=== PATIENT | female | born 1960 | race African-American/Black ===

== ENCOUNTER 2016-10-29 08:59 | Observation (INO) | payer MEDICARE, MEDICAID ==
--- NOTE | 2016-10-29 09:53 | ED ---
Lower Extremity - HPI Summary HPI Summary: Pt here w/ Rt LE pain since falling this morning - knee and ankle. Was walking to bathroom when she accidentally tripped and fell. Denies LOC, hitting head, change in vision, neck pain, dizziness, chest pain, back pain. 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 Has a baseline of slow cognition as a result of CVA. Denies anti-coagulation therapy currently but does take plaquenil for her SLE. She was unable to bear weight after injury lives in [place] and called "rescue unit" - BIB. Denies numbness, tingling , weakness, change in bowel/bladder habits. - History of Current Complaint Chief Complaint: EDExtremityLower Stated Complaint: RT KNEE PAIN Time Seen by Provider: 10/29/16 09:21 Hx Obtained From: Patient, Family/Road Roller Operator - mother - Allergies/Home Medications Allergies/Adverse Reactions: Allergies Allergy/AdvReac Type Severity Reaction Status Date / Time Fentanyl Allergy Unknown Verified 10/29/16 09:06 Reaction Details Sulfa Antibiotics Allergy Facial Verified 10/29/16 09:06 Redness/Flushing Home Medications: Home Medications Aspirin TAB* 325 mg PO DAILY 10/29/16 [History Confirmed 10/29/16] Calcium Carbonate-Vitamin D [Calcium 600 + D 600-400 mg-Unit] 1 tab PO BID 10/29 [History Confirmed 10/29/16] Famotidine TAB* [Pepcid TAB*] 20 mg PO 2100 10/29/16 [History Confirmed 10/29/16 ] Gabapentin TAB(NF) [Neurontin 600 mg TAB(NF)] 600 mg PO BID 10/29/16 [History Confirmed 10/29/16] Naproxen TAB* [Naprosyn TAB*] 500 mg PO BID 10/29/16 [History Confirmed 10/29/16 ] Nebivolol TAB (NF) [Bystolic TAB (NF)] 5 mg PO DAILY 10/29/16 [History Confirmed 10/29/16] Sennosides [Senna-Lax] 17.2 mg PO BEDTIME 10/29/16 [History Confirmed 10/29/16] amLODIPine TAB* [Norvasc TAB*] 5 mg PO DAILY 10/29/16 [History Confirmed ] PMH/Surg Hx/FS Hx/Imm Hx Endocrine/Hematology History: Reports: Hx Systemic Lupus Erythematosus - tx'd w / plaquenil, Hx Thyroid Disease - RIGHT LOBE THYROID IS ENLARGED, Denies: Hx Anticoagulant Therapy, Hx Bone Marrow Disease, Hx Diabetes, Hx Sickle Cell Disease, Hx Anemia Cardiovascular History: Reports: Hx Hypertension Denies: Hx Congestive Heart Failure, Hx Pacemaker/ICD, Other Cardiovascular Problems/Disorders Respiratory History: Denies: Hx Asthma, Hx Pulmonary Embolism, Hx Sleep Apnea, Other Respiratory Problems/Disorders GI History: Denies: Hx Jaundice History: Reports: Hx Kidney Infection, Other Problems/Disorders - UTI, vag abscess. SEES DR. GRAF ABOUT KIDNEYS Denies: Hx Renal Disease Musculoskeletal History: Reports: Hx Arthritis - SHOULDERS, Hx Back Problems - pain, Other Musculoskeletal History - bilateral hip Denies: Hx Tendonitis Sensory History: Reports: Hx Contacts or Glasses, Hx Deafness - [place] in right ear , Hx Hearing Problem - right hear clogged Denies: Hx Cataracts, Hx Glaucoma, Hx Hearing Aid Opthamlomology History: Reports: Hx Contacts or Glasses Denies: Hx Cataracts, Hx Glaucoma Neurological History: Reports: Hx Migraine - ~1 MONTH AGO, HAPPENS OCCASIONALLY , Hx Seizures, Other Neuro Impairments/Disorders - cva lupus migranes; 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 Denies: Hx Nerve Disease Comment Only: Hx Spinal Cord Injury - "Many years ago" Psychiatric History: Denies: Hx Anxiety, Hx Depression, Hx Panic Disorder - Cancer History Hx Chemotherapy: No Hx Radiation Therapy: No - Surgical History Surgery Procedure, Year, and Place: BILATERAL hip replacement, hysterectomy, one ovary removed; VAGINAL ABSCESS I&D Hx Anesthesia Reactions: No - Immunization History Date of Tetanus Vaccine: unk Date of Influenza Vaccine: unk Infectious Disease History: Yes Infectious Disease History: Reports: Hx of Known/Suspected MRSA, Hx Shingles Denies: Hx Hepatitis, Traveled Outside the [place] in Last 30 Days - Family History Known Family History: Positive: Cardiac Disease, Hypertension, Diabetes - Social History Occupation: Disabled Lives: Alone - [place] Alcohol Use: None Hx Substance Use: No Substance Use Type: Reports: None Hx Tobacco Use: No Smoking Status (MU): Never Smoked Tobacco Have You Smoked in the Last Year: No Review of Systems Negative: Fatigue Eyes: Negative Negative: Epistaxis Negative: Chest Pain Negative: Shortness Of Breath Negative: Abdominal Pain, Vomiting, Diarrhea, Nausea Positive: no symptoms reported Musculoskeletal: Other - see HPI Negative: Bruising Neurological: Negative Psychological: Normal All Other Systems Reviewed And Are Negative: Yes Physical Exam Triage Information Reviewed: Yes Vital Signs On Initial Exam: Initial Vitals Temp Pulse Resp BP Pulse Ox 98.3 F 77 16 150/94 100 10/29/16 09:04 10/29/16 09:04 10/29/16 09:04 10/29/16 09:04 10/29/16 09:04 Vital Signs Reviewed: Yes Appearance: Positive: Well-Appearing, Well-Nourished, Pain Distress Skin: Positive: Warm, Dry - no erytema, no ecchymosis, no signs of abrasion/ laceration over affected areas Head/Face: Positive: Normal Head/Face Inspection Eyes: Positive: Normal, EOMI, ANDREI, Conjunctiva Clear ENT: Positive: Hearing grossly normal, Pharynx normal - muocsa moist Neck: Positive: Supple, Nontender Respiratory/Lung Sounds: Positive: Breath Sounds Present. Negative: Subcutaneous Emphysema, Tracheal Deviation Cardiovascular: Positive: Normal, RRR, Pulses are Symmetrical in both Upper and Lower Extremities Abdomen Description: Positive: Nontender, Soft Bowel Sounds: Positive: Present Musculoskeletal: Positive: Pain @ - Rt knee, tibia and malleoli are TTP - pt has limited ROM of RLE d/t pain and weakness (latter is baseline), Other - lumbar spine, paraspinal mm, SI joints and hip NTTP Neurological: Positive: Other - slowed cognition (pt and mom state this is baseline); Rt sided weakness, UE and LE (again, baseline); sensation intact and equal B/L in LE's Psychiatric: Positive: Anxious Diagnostics - Vital Signs Vital Signs Temp Pulse Resp BP Pulse Ox 10/29/16 09:09 77 100 10/29/16 09:04 98.3 F 77 16 150/94 100 - Laboratory Result Diagrams: 10/29/16 13:13 10/30/16 08:30 Lab Statement: Any lab studies that have been ordered have been reviewed, and results considered in the medical decision making process. Re-Evaluation - Re-Evaluation First Eval Change: Unchanged - no relief w/ acetaminophen 975mg Second Eval Change: Unchanged - no change with oxycodone 5mg PO Lower Extremity Course/Dx - Course Course Of Treatment: Pt's pain is poorly controlled w/ 2 meds here in ED - she is also unable to bear weight. Social work consult was placed to discuss pt's ability to return home given her lack of Rt LE weight bearing s/p injury - she also has a Rt sided hemiplegia, impeding use of her Rt arm so she cannot use cructhes or a walker to assist in ambulation at home. Upon further discussion, it is identified that pt was recently d/c'd from [facility]. Social work advises obs/admit for pain control w/ plan to return home or back into residential care if unable to live independently after pain is controlled. - Diagnoses Provider Diagnoses: Fall, Lower extremity pain - Physician Notifications Discussed Care of Patient With: Dr. Lynn. Dr. Santillan. Cost Estimating Clerk Discharge - Discharge Plan Condition: Stable Disposition: ADMITTED TO [facility]
[2016-10-29] MEDS ORDERED: Acetaminophen TAB* 325 MG PO ONE (09:57)
--- NOTE | 2016-10-29 10:41 | RAD ---
Indication: RIGHT knee pain post fall. Comparison: February 13, 2006 Technique: AP, tunnel, and crosstable lateral views RIGHT knee. Report: Normal alignment. Negative for joint effusion. Mild subchondral sclerosis at the lateral femoral condyle grossly unchanged from the prior exam. Preserved joint spaces. Unremarkable soft tissue contours accounting for body habitus. Skeletal muscle atrophy. IMPRESSION: No traumatic injury evident. Subchondral sclerosis at the lateral femoral condyle without gross change compared with the 2006 exam may reflect sequela of previous avascular necrosis.
[2016-10-29] MEDS ORDERED: oxyCODONE TAB* 5 MG TAB PO ONE (10:42)
--- NOTE | 2016-10-29 10:47 | RAD ---
INDICATION: Right ankle injury. TECHNIQUE: 3 views of the right ankle were obtained. FINDINGS: There is mild soft diffuse soft tissue swelling. The bones are in normal alignment. No fracture is seen. IMPRESSION: NO EVIDENCE FOR FRACTURE.
[2016-10-29] MEDS ORDERED: Ondansetron INJ* 2 MG/ML VIAL IV ONE (12:31)
[2016-10-29] MEDS ORDERED: Morphine INJ* 4 MG/ML 1 ML CARPUJECT IV ONE (12:31)
[2016-10-29 13:32] LABS: Hematocrit 33 % (35-47); Hemoglobin 10.4 g/dl (12.0-16.0); Mean Corpuscular HGB Conc 32 g/dl (31-36); Mean Corpuscular Hemoglobin 27 pg (27-31); Mean Corpuscular Volume 85 fL (80-97); Mean Platelet Volume 8 um3 (7.4-10.4); Red Blood Count 3.81 10^6/ul (4.0-5.4); Red Cell Distribution Width 14 % (10.5-15); White Blood Count 4.8 10^3/ul (3.5-10.8)
[2016-10-29 13:42] LABS: Albumin 3.8 g/dL (3.2-5.2); BUN/Creatinine Ratio 8.7 (8-20); Calcium 9.1 mg/dL (8.6-10.3); EGFR African American 56.5 (>60); EGFR Non-African American 43.9 (>60); Globulin 3.7 g/dL (2-4); Potassium 3.3 mmol/L (3.5-5.0); Total Bilirubin 0.3 mg/dL (0.2-1.0); Total Protein 7.5 g/dL (6.4-8.9)
[2016-10-29] MEDS ORDERED: Baclofen TAB* 20 MG PO PRN (14:42)
[2016-10-29] MEDS ORDERED: Morphine INJ* 2 MG/ML 1 ML CARPUJECT IV PRN (14:45)
[2016-10-29] MEDS ORDERED: Potassium Chlor TAB* 20 MEQ TAB.ER PO ONE (15:11)
[2016-10-29 15:31] LABS: Magnesium 1.8 mg/dL (1.9-2.7)
[2016-10-29 15:39] LABS: Urine Bacteria Absent (Absent); Urine Bilirubin Negative (Negative); Urine Glucose Negative (Negative); Urine Nitrite Negative (Negative)
[2016-10-29] MEDS ORDERED: Magnesium Sulfate 2 GM IV* 2 GM/50 ML BAG IVPB ONE (16:18)
[2016-10-29] MEDS ORDERED: Baclofen TAB* 10 MG PO PRN (16:49)
[2016-10-29] MEDS: oxyCODONE/Acetamin 5/325 MG* TAB PO PRN (19:40)
[2016-10-29] MEDS ORDERED: Ranitidine TAB (NF) 150 MG TAB PO SCH (21:00)
[2016-10-29] MEDS ORDERED: Senna TAB PO SCH (21:00)
[2016-10-29] MEDS ORDERED: Famotidine TAB* 20 MG PO SCH (21:00)
[2016-10-29] MEDS: Naproxen TAB* 250 MG PO SCH (21:36)
[2016-10-29] MEDS: Hydroxychloroquine TAB* 200 MG PO SCH (21:36)
[2016-10-29] MEDS: PHENobarbital TAB(*) 30 MG PO SCH (21:36)
[2016-10-29] MEDS: Gabapentin CAP(*) 300 MG PO SCH (21:37)
--- NOTE | 2016-10-29 22:26 | HP ---
HISTORY AND PHYSICAL: DATE OF ADMISSION: 10/29/16 PRIMARY CARE PROVIDER: Nabila Barrera MD ATTENDING PHYSICIAN: Dru Burton MD *(report dictated by Jessica Lopez NP) CHIEF COMPLAINT: Fall with right lower extremity pain. HISTORY OF PRESENT ILLNESS: Ms. Rao is a 56-year-old female with past medical history significant for lupus, CVA at age 27, arthritis and avascular necrosis who presents to the emergency room after tripping and falling while walking to the bathroom at home. The patient denies any loss of consciousness, head trauma, visual changes, lightheadedness or dizziness. When the patient fell, she was unable to get up and called for help and was brought to the emergency room. While in the emergency room, the patient had a right knee x-ray showing no traumatic injury and a right ankle x-ray showing no fracture. The patient had labs that were significant for a slightly low potassium of 3.3, an elevated creatinine at 1.26, which appears to be consistent with the patient's baseline. The patient was noted to be anemic with hemoglobin of 10.4 and hematocrit of 33. This is also consistent with the patient's previous labs from an admission in September 2016. The patient denied any fever, chills, chest pain, shortness of breath, weakness that was above her baseline. It is to note that the patient has baseline right sided weakness after having a CVA at age 27 during childbirth. While in the emergency room, the patient received acetaminophen and oxycodone with no relief in her pain. The patient attempted to ambulate and was unable to bear weight on her right lower extremity and she is unable to use crutches due to her right upper extremity weakness. The patient received IV morphine that helped bring her pain to a more manageable level. The hospitalist were asked to evaluate the patient for admission. PAST MEDICAL HISTORY: 1. Systemic lupus erythematosus. 2. Cerebrovascular accident at age 27. 3. Arthritis. 4. Migraine. 5. Avascular necrosis. PAST SURGICAL HISTORY: 1. Status post vaginal abscess incision and drainage. 2. Status post bilateral hip replacements. 3. Status post hysterectomy. 4. Status post oophorectomy. HOME MEDICATIONS: Include: 1. Bystolic 5 mg oral daily. 2. Naproxen 500 mg oral twice daily. 3. Ranitidine 150 mg oral twice daily. 4. Gabapentin 600 mg oral twice daily. 5. Amlodipine 5 mg oral daily. 6. Phenobarbital 64.8 mg oral twice daily. 7. Plaquenil 200 mg oral twice daily. 8. Senna Lax 17.2 mg oral at bedtime daily. 9. Baclofen 20 mg oral twice daily as needed for muscle spasms. 10. Aspirin 325 mg oral daily. 11. Famotidine 20 mg oral daily at bedtime. 12. Calcium carbonate-vitamin D 1 tablet oral twice daily. ALLERGIES: FENTANYL, SULFA. FAMILY HISTORY: Reviewed and noncontributory. SOCIAL HISTORY: The patient denies tobacco, alcohol, recreational drug use. The patient lives alone at [facility]. The patient's son, Yayo Rao and her mother, Karen Okeefe will be her surrogate decision makers in the event she is unable to make decisions for herself. REVIEW OF SYSTEMS: I performed a 14-point review of systems. All the pertinent positives and negatives are mentioned in the history of present illness. The remaining review of systems is negative. PHYSICAL EXAMINATION GENERAL APPEARANCE: The patient is alert, pleasant, appears to be in no acute distress. VITAL SIGNS: Temperature 98.3, heart rate 77, respiratory rate 16, O2 sat 100% on room air, blood pressure 150/94. HEENT: Normocephalic, atraumatic. Pupils are equal and reactive to light. Extraocular movements are intact. NECK: Supple. There is no lymphadenopathy noted. RESPIRATORY: There is no accessory muscle use and the lungs are clear to auscultation bilateral. CARDIOVASCULAR: Regular rate and rhythm. S1 and S2 are present. ABDOMEN: Soft, nontender, nondistended. Bowel sounds present x4. EXTREMITIES: There is no lower extremity edema. DP and PT pulses are 2+ and symmetric. MUSCULOSKELETAL: There is no clubbing or cyanosis noted. The patient has pain in her right knee and there is tenderness to palpation at the knee. The patient has limited range of motion due to pain and baseline weakness. The patient also has pain to palpation at the right ankle and has limited mobility range of motion due to pain. The patient at baseline has right upper extremity contracture and weakness. NEUROLOGICAL: Slowed cognition, per the patient and her mother this is her baseline. The patient has baseline right-sided weakness. PSYCHOLOGICAL: The patient is calm and cooperative. SKIN: There are no rashes or abnormalities seen. DIAGNOSTIC STUDIES/LABORATORY DATA: Sodium 137, potassium 3.3, chloride 104, CO2 of 28, BUN 11, creatinine 1.26, glucose 74. White blood cell count 4.8, hemoglobin 10.4, hematocrit 33, and platelet count 215. Right ankle x-ray from today, radiologist's impression: No evidence for fracture. Right knee x-ray from today, radiologist's impression: No traumatic injury evident. Subchondral sclerosis at the lateral femoral condyle without gross change compared with 2006 exam may reflect sequelae of previous avascular necrosis. IMPRESSION: Ms. Rao is a 56-year-old female with past medical history significant for lupus, cerebrovascular accident, arthritis, and migraine who presents to the emergency room after tripping and falling at home. She will be admitted as an inpatient for intractable pain. ASSESSMENT: 1. Intractable pain. The patient is unable to bear weight due to pain in her right ankle and knee. The patient is also unable to use crutches due to her baseline right upper extremity weakness from her history of cerebrovascular accident. The patient will have a PT and OT evaluation. She will receive pain medication. I suspect the patient may need temporary subacute rehab placement if she is unable to bear weight and ambulate independently. 2. Hypokalemia. The patient will receive potassium replacement today. We will recheck the patient's potassium in the morning. We will also check a magnesium level today. If the patient does in fact have hypomagnesium, we will also give the patient magnesium replacement. 3. History of seizures. The patient will be continued on her home phenobarbital. She will be on seizure precautions. 4. Lupus. The patient will be continued on her Plaquenil. 5. Chronic pain. The patient will be continued on her home naproxen, Neurontin and baclofen. 6. Fluids, electrolytes, and nutrition. The patient will be on regular diet. 7. Code status, full code. 8. DVT prophylaxis. The patient is a moderate risk and will have SCDs. 9. Disposition. Inpatient. TIME SPENT: Time for this admission was 60 minutes, 35 minutes was spent with the patient and mother discussing medications, past medical history, and events leading up to her arrival today and performing a physical examination. The case has been reviewed with the attending, Dr. Burton, who agrees with the plan of care. Reviewed by RADHA MANZANO-Bernabe 10/30/16 0728 CC: Nabila Barrera MD* [id number]/[facility] #: [id number] [facility]HT[facility]
[2016-10-30] MEDS: oxyCODONE/Acetamin 5/325 MG* TAB PO PRN ×2 (07:06→12:28)
[2016-10-30 07:19] VITALS: BP 118/76
[2016-10-30] MEDS ORDERED: CMCS Nebivolol TAB (NF) 2.5 MG TAB PO SCH (09:00)
[2016-10-30] MEDS ORDERED: Aspirin TAB* 325 MG PO SCH (09:00)
[2016-10-30] MEDS ORDERED: amLODIPine TAB* 5 MG PO SCH (09:00)
[2016-10-30 09:05] LABS: Calcium 8.5 mg/dL (8.6-10.3); EGFR African American 52.6 (>60); EGFR Non-African American 40.9 (>60); Magnesium 2.3 mg/dL (1.9-2.7); Potassium 4.4 mmol/L (3.5-5.0)
[2016-10-30] MEDS: Hydroxychloroquine TAB* 200 MG PO SCH (09:32)
[2016-10-30] MEDS: Gabapentin CAP(*) 300 MG PO SCH (09:32)
[2016-10-30] MEDS: Naproxen TAB* 250 MG PO SCH (09:32)
[2016-10-30] MEDS: PHENobarbital TAB(*) 30 MG PO SCH (09:33)
--- NOTE | 2016-10-30 09:59 | PN ---
Subjective Date of Service: 10/30/16 Interval History: Patient seen and examined at bedside. Pt states that her right LE pain has improved today. She continues to have decreased ROM, but is able to move both her knee and ankle more today. Denies fever, chills, shortness of breath, chest discomfort, N/V/D. Family History: Unchanged from Admission Social History: Unchanged from Admission Past Medical History: Unchanged from Admission Objective Active Medications: Amlodipine Besylate (Norvasc Tab*) 5 mg PO DAILY [facility] Aspirin (Aspirin Tab*) 325 mg PO DAILY [facility] Baclofen (Lioresal Tab*) 20 mg PO BID PRN Reason: SPASMS - MUSCLE Famotidine (Pepcid Tab*) 20 mg PO 2100 [facility] Gabapentin (Neurontin Cap(*)) 600 mg PO BID [facility] Hydroxychloroquine Sulfate (Plaquenil Tab*) 200 mg PO BID [facility] Morphine Sulfate (Morphine Inj (Syringe)*) 2 mg IV Q4H PRN Reason: PAIN - MILD TO MODERATE Naproxen (Naprosyn Tab*) 500 mg PO BID [facility] Nebivolol (Bystolic Tab (Nf)) 5 mg PO DAILY [facility] Oxycodone/Acetaminophen (Percocet 5/325 Tab*) 1 tab PO Q4H PRN Reason: PAIN Phenobarbital (Phenobarbital Tab(*)) 60 mg PO BID [facility] Senna (Senokot Tab*) 2 tab PO BEDTIME [facility] Vital Signs 10/29/16 10/29/16 10/29/16 16:33 17:24 17:32 Temperature 98 F 99.1 F 99.1 F Pulse Rate 64 71 71 Respiratory 16 16 16 Rate Blood Pressure 118/77 127/73 127/73 (mmHg) O2 Sat by Pulse 98 100 100 Oximetry 10/29/16 10/29/16 10/29/16 19:40 20:00 21:36 Temperature 98.2 F Pulse Rate 86 Respiratory 18 16 16 Rate Blood Pressure 127/77 (mmHg) O2 Sat by Pulse 100 Oximetry 10/29/16 10/29/16 10/30/16 23:37 23:38 01:14 Temperature 98.0 F Pulse Rate 83 Respiratory 18 16 20 Rate Blood Pressure 116/70 (mmHg) O2 Sat by Pulse 97 Oximetry 10/30/16 10/30/16 10/30/16 02:14 03:25 06:53 Temperature 97.9 F Pulse Rate 78 73 Respiratory 16 Rate Blood Pressure 117/70 118/76 (mmHg) O2 Sat by Pulse 100 100 Oximetry Oxygen Devices in Use Now: None Appearance: NAD, laying in bed. Eyes: No Scleral Icterus, PERRLA Ears/Nose/Mouth/Throat: NL Teeth, Lips, Gums, Mucous Membranes Moist Neck: NL Appearance and Movements; NL JVP, Trachea Midline Respiratory: Symmetrical Chest Expansion and Respiratory Effort, Clear to Auscultation Cardiovascular: NL Sounds; No Murmurs; No JVD, RRR Abdominal: NL Sounds; No Tenderness; No Distention - Bowel sounds present. Extremities: No Edema, - - Limited ROM to right LE Skin: No Rash or Ulcers Neurological: Alert and Oriented x 3, - - Baseline Right sided weakness Lines/Tubes/Other Access: Clean, Dry and Intact Peripheral IV - site benign. Nutrition: Taking PO's Result Diagrams: 10/29/16 13:13 10/30/16 08:30 Assess/Plan/Problems-Billing Assessment: Ms. Rao is a 56 yo female with PMH significant for lupus, hx CVA, and arthritis who presented to the emergency room after tripping and falling at home. She was admitted for intractable pain. - Patient Problems (1) Intractable pain Code(s): R52 - PAIN, UNSPECIFIED SNOMED Code(s): 51249456 Comment: Improved pain control and slowly improving mobility. No acute fractures seen on xray. Pt received 1 dose of IV morphine overnight and using Percocet for pain. PT/OT eval pending. (2) Hypokalemia Code(s): E87.6 - HYPOKALEMIA SNOMED Code(s): 34560600 Comment: Resolved. (3) Elevated serum creatinine Code(s): R79.89 - OTHER SPECIFIED ABNORMAL FINDINGS OF BLOOD CHEMISTRY SNOMED Code(s): 680573408 Comment: Creatinine is slightly more elevated today. Creatinine is still near baseline. Will continue to limit nephrotoxic medications and make sure her routine medications are renally dosed. (4) Chronic pain Code(s): G89.29 - OTHER CHRONIC PAIN SNOMED Code(s): 20767387 Comment: Will try to keep on her home analgesic meds if possible. (5) History of CVA with residual deficit Code(s): I69.30 - UNSPECIFIED SEQUELAE OF CEREBRAL INFARCTION SNOMED Code(s): 919959583 Comment: with right-sided numbness and weakness at baseline (6) Lupus Code(s): M32.9 - SYSTEMIC LUPUS ERYTHEMATOSUS, UNSPECIFIED SNOMED Code(s): 96243663 Comment: Continue Plaquenil. (7) Seizure Code(s): R56.9 - UNSPECIFIED CONVULSIONS SNOMED Code(s): 93221431 Comment: No seizure activity. Continue phenobarbital. Seizure precautions. (8) DVT prophylaxis Code(s): NCA9121 - SNOMED Code(s): 882116782 Comment: SCDs (9) Full code status Code(s): Z78.9 - OTHER SPECIFIED HEALTH STATUS SNOMED Code(s): 792587955 Status and Disposition: Inpatient to [facility]. Stable for discharge to home vs NHP. Plan for possible discharge later today after PT/OT consults.
--- NOTE | 2016-10-30 12:27 | DS ---
DATE OF ADMISSION: 10/29/2016. DATE OF DISCHARGE: 10/30/2016. AGE: 56. ATTENDING PHYSICIAN: Dr. Dru Burton* (dictated by Jessica Lopez NP). PRIMARY DIAGNOSES: 1. Status post fall at home. 2. Intractable right lower extremity pain. SECONDARY DIAGNOSES: 1. Systemic Lupus erythematous. 2. History of cerebrovascular accident at age 27. 3. Arthritis. 4. History of avascular necrosis. STUDIES WHILE IN THE HOSPITAL: 1. Right ankle x-ray, 10/29/2016: Radiologist's impression: No evidence for fracture. 2. Right knee x-ray, 10/29/2016: Radiologist's impression: No traumatic injury evident. Subchondral sclerosis at the lateral femoral condyle without gross change compared with 2006 exam, may reflect sequela of previous avascular necrosis. DISCHARGE MEDICATIONS: New home medications: 1. Percocet one tablet oral every 4 hours as needed for pain. Continued home medications: 1. Phenobarbital 64.8 mg oral twice daily. 2. Plaquenil 200 mg oral twice daily. 3. Ranitidine 150 mg oral twice daily. 4. Baclofen 20 mg oral twice daily as needed for muscle spasms. 5. Naproxen 500 mg oral twice daily. 6. Gabapentin 600 mg oral twice daily. 7. Amlodipine 5 mg oral daily. 8. Senna-Lax 17.2 mg oral daily at bedtime. 9. Aspirin 325 mg oral daily. 10. Famotidine 20 mg oral daily at bedtime. 11. Calcium carbonate - vitamin D one tablet oral twice daily. 12. Bystolic 5 mg oral daily. HISTORY OF PRESENT ILLNESS/HOSPITAL COURSE: Ms. Rao is a 56-year-old female with a past medical history significant for Lupus, cerebrovascular accident at age 27, arthritis and avascular necrosis who presented to the emergency room after tripping and falling at home while ambulating without an assistive device. The patient denied hitting her head, loss of consciousness, visual changes, lightheadedness, or dizziness. When the patient fell, she was having right lower extremity pain and was unable to get up. She called for help and was brought to the emergency room for further evaluation. While in the emergency room, the patient had a right knee x-ray showing no traumatic injury and a right ankle x-ray showing no fracture. The patient had labs that were significant for hypokalemia with a potassium of 3.3, elevated creatinine of 1.26 which appears to be consistent with the patient's baseline. The patient was also noted to be anemic with a hemoglobin of 10.4 and a hematocrit of 33. These are consistent with previous labs from September 2016. It appeared to be at the patient's baseline. It is to note that the patient at baseline has right sided weakness after having a CVA at age 27 during childbirth. While in the emergency room, the patient received acetaminophen and Oxycodone with no relief in her pain. The patient attempted to ambulate and was unable to bear weight on her right lower extremity and she is unable to use crutches due to right upper extremity baseline weakness. The patient received IV Morphine with some improvement in her pain. The Hospitalists were asked to evaluate the patient for admission. While in the hospital, the patient's pain improved. She only required one dose of IV Morphine and her pain has been controlled with Percocet. The patient was seen by Occupational Therapy and Physical Therapy who felt that the patient had continued therapy needs and would benefit [facility]. The patient has been offered a bed at [facility] today. Ms. Rao is stable for discharge to [facility] today. Vital signs are as follows: Temperature 97.9, heart rate 73, respiratory rate 16, O2 sat 100 percent on room air, blood pressure 118/76. DISCHARGE PLAN: Ms. Rao will be discharged to [facility]. Activity is as tolerated. She should be on a regular diet. Ms. Rao should continue to use an assistive device to ambulate. As far as the right lower extremity pain, this is felt to be related to a contusion and possible muscle sprain. The patient can take Tylenol as needed in addition to Percocet as needed for her pain. The patient has also been encouraged to rest the lower extremity and use ice. As far as the patient's chronic medical condition, she should be continued on her Plaquenil for her Lupus. The patient should be continued on Phenobarbital for her history of seizures. The patient should be continued on aspirin for her history of cerebrovascular accident. As far as the patient's chronic kidney disease, cautious use should be used with her Naproxen and Gabapentin. I recommend monitoring the patient's creatinine. If her creatinine continues to elevate, I recommend decreasing or discontinuing her Naproxen as well as her Gabapentin. The patient should continue to be evaluated and followed with Physical Therapy and Occupational Therapy. The patient should see her primary care doctor, Dr. Nabila Barrera or the [facility] provider per protocol. The patient should return to the emergency room for chest pain or shortness of breath. This is a summarized report of a complex medical history and hospital stay. For further details, please see the entire medical record. Time for this discharge was 50 minutes, 25 minutes were spent [id number] with the patient discussing discharge plans and instructions. CONDITION ON DISCHARGE: Stable. Reviewed by ZULMA MANZANO 11/08/16 0804 CC: Dr. Nabila Barrera* [id number]/[facility] #: [id number]
== END 2016-10-30 14:45 ==
LOC: ED 08:59 → MED 14:14 → INTOOBSV 14:14
PROVIDERS: ADMIT Internal Medicine; ATTEND Internal Medicine
DX: M79.604 Pain in right leg (principal); W01.0XXA Fall on same level from slipping, tripping and stumbling without subsequent striking against object, initial encounter; Y92.009 Unspecified place in unspecified non-institutional (private) residence as the place of occurrence of the external cause; E87.6 Hypokalemia; M32.9 Systemic lupus erythematosus, unspecified; M87.9 Osteonecrosis, unspecified; R79.89 Other specified abnormal findings of blood chemistry; M19.90 Unspecified osteoarthritis, unspecified site; G89.29 Other chronic pain; Z86.73 Personal history of transient ischemic attack (TIA), and cerebral infarction without residual deficits; Z79.899 Other long term (current) drug therapy; Z79.82 Long term (current) use of aspirin; Z88.5 Allergy status to narcotic agent; Z88.2 Allergy status to sulfonamides
CPT/HCPCS: 36415; 80048; 80053; 81003; 81015; 83735; 85025; 87077; 87086; 96374; 96375; 96376; 99284; A9270-GY; G0378; J2270; J2405; J3475

== ENCOUNTER 2016-12-03 23:03 | Emergency (ER) | payer MEDICARE, MEDICAID ==
[2016-12-04] MEDS ORDERED: Ondansetron INJ* 2 MG/ML VIAL IV ONE (00:51)
[2016-12-04] MEDS ORDERED: Morphine INJ* 4 MG/ML 1 ML CARPUJECT IV ONE (00:51)
[2016-12-04] MEDS ORDERED: NS 0.9% 1000 ML* 1,000 ML IV ONE (00:51)
[2016-12-04 03:10] LABS: Hematocrit 29 % (35-47); Hemoglobin 9.3 g/dl (12.0-16.0); Mean Corpuscular HGB Conc 33 g/dl (31-36); Mean Corpuscular Hemoglobin 28 pg (27-31); Mean Corpuscular Volume 85 fL (80-97); Mean Platelet Volume 8 um3 (7.4-10.4); Red Blood Count 3.37 10^6/ul (4.0-5.4); Red Cell Distribution Width 14 % (10.5-15); White Blood Count 3.8 10^3/ul (3.5-10.8)
[2016-12-04 03:49] LABS: Albumin 3.5 g/dL (3.2-5.2); BUN/Creatinine Ratio 13.4 (8-20); C Reactive Protein 6.74 mg/L (< 5.00); Calcium 8.7 mg/dL (8.6-10.3); EGFR African American 52.6 (>60); EGFR Non-African American 40.9 (>60); Globulin 3.6 g/dL (2-4); Potassium 3.9 mmol/L (3.5-5.0); Total Bilirubin 0.2 mg/dL (0.2-1.0); Total Protein 7.1 g/dL (6.4-8.9)
--- NOTE | 2016-12-04 04:37 | ED ---
Juan Antonio Emerson Adam, scribed for Scott Toscano MD on 12/04/16 at 0028 . Complex/Multi-Sys Presentation - HPI Summary HPI Summary: Pt is a 56 year old female presenting with dizziness, DREW, and pain in the right side of her body. She became dizzy at 20:00 and after going upstairs she felt as if she was going to lose consciousness. Soon she developed a DREW in her forehead and pain throughout the right side of her body. She has PMHx of CVA at age 27 with residual right-sided weakness and facial droop. She takes oxycodone for chronic pain but she states that the pain tonight was worse than usual and the oxycodone did not alleviate it. She denies any abdominal pain or urinary sx. - History Of Current Complaint Chief Complaint: EDGeneral Time Seen by Provider: 12/04/16 00:15 Hx Obtained From: Patient Onset/Duration: Sudden Onset, Lasting Hours, Still Present Timing: Constant Severity Currently: Moderate Severity Initially: Moderate Location: Pain At: - Right side of body Aggravating Factor(s): Nothing Alleviating Factor(s): Nothing Associated Signs And Symptoms: Positive: Dizziness, Headache, Other - Pre- syncope - Allergies/Home Medications Allergies/Adverse Reactions: Allergies Allergy/AdvReac Type Severity Reaction Status Date / Time Fentanyl Allergy Unknown Verified 12/03/16 23:20 Reaction Details Sulfa Antibiotics Allergy Facial Verified 12/03/16 23:20 Redness/Flushing PMH/Surg Hx/FS Hx/Imm Hx Endocrine/Hematology History: Reports: Hx Systemic Lupus Erythematosus - tx'd w / plaquenil, Hx Thyroid Disease - RIGHT LOBE THYROID IS ENLARGED, Denies: Hx Anticoagulant Therapy, Hx Bone Marrow Disease, Hx Diabetes, Hx Sickle Cell Disease, Hx Anemia Cardiovascular History: Reports: Hx Hypertension Denies: Hx Congestive Heart Failure, Hx Pacemaker/ICD, Other Cardiovascular Problems/Disorders Respiratory History: Denies: Hx Asthma, Hx Pulmonary Embolism, Hx Sleep Apnea, Other Respiratory Problems/Disorders GI History: Denies: Hx Jaundice History: Reports: Hx Kidney Infection, Other Problems/Disorders - UTI, vag abscess. SEES DR. GRAF ABOUT KIDNEYS Denies: Hx Renal Disease Musculoskeletal History: Reports: Hx Arthritis - SHOULDERS, Hx Back Problems - pain, Other Musculoskeletal History - bilateral hip Denies: Hx Tendonitis Sensory History: Reports: Hx Contacts or Glasses, Hx Deafness - [place] in right ear , Hx Hearing Problem - right hear clogged Denies: Hx Cataracts, Hx Glaucoma, Hx Hearing Aid Opthamlomology History: Reports: Hx Contacts or Glasses Denies: Hx Cataracts, Hx Glaucoma Neurological History: Reports: Hx Migraine - ~1 MONTH AGO, HAPPENS OCCASIONALLY , Hx Seizures, Other Neuro Impairments/Disorders - cva lupus migranes; 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 Denies: Hx Nerve Disease Comment Only: Hx Spinal Cord Injury - "Many years ago" Psychiatric History: Denies: Hx Anxiety, Hx Depression, Hx Panic Disorder - Cancer History Hx Chemotherapy: No Hx Radiation Therapy: No - Surgical History Surgery Procedure, Year, and Place: BILATERAL hip replacement, hysterectomy, one ovary removed; VAGINAL ABSCESS I&D Hx Anesthesia Reactions: No - Immunization History Date of Tetanus Vaccine: unk Date of Influenza Vaccine: unk Infectious Disease History: Yes Infectious Disease History: Reports: Hx of Known/Suspected MRSA, Hx Shingles Denies: Hx Hepatitis, Traveled Outside the [place] in Last 30 Days - Family History Known Family History: Positive: Cardiac Disease, Hypertension, Diabetes - Social History Occupation: Disabled Lives: With Family - Mother Alcohol Use: None Hx Substance Use: No Substance Use Type: Reports: None Hx Tobacco Use: No Smoking Status (MU): Never Smoked Tobacco Have You Smoked in the Last Year: No Review of Systems Negative: Abdominal Pain Genitourinary: Negative Positive: Myalgia - Right side of body Neurological: Other - Dizziness, right side facial droop (chronic) Positive: Headache, Weakness - Right side (chronic), Syncope - Pre-syncope (no LOC) All Other Systems Reviewed And Are Negative: Yes Physical Exam Triage Information Reviewed: Yes Vital Signs On Initial Exam: Initial Vitals Temp Pulse Resp BP Pulse Ox 98.6 F 84 16 137/92 100 12/03/16 23:05 12/03/16 23:05 12/03/16 23:05 12/03/16 23:05 12/03/16 23:05 Vital Signs Reviewed: Yes Appearance: Positive: Well-Appearing, Pain Distress - Mild to moderate Skin: Positive: Warm, Skin Color Reflects Adequate Perfusion, Dry Head/Face: Positive: Other - Right side facial droop Eyes: Positive: EOMI, ANDREI ENT: Positive: Normal ENT inspection Neck: Positive: Supple, Nontender Respiratory/Lung Sounds: Positive: Clear to Auscultation, Breath Sounds Present Cardiovascular: Positive: RRR Abdomen Description: Positive: Nontender, Soft Bowel Sounds: Positive: Present Musculoskeletal: Positive: Normal, Strength/ROM Intact Neurological: Positive: Normal, Sensory/Motor Intact, Alert, Oriented to Person Place, Time Psychiatric: Positive: Affect/Mood Appropriate Diagnostics - Vital Signs Vital Signs Temp Pulse Resp BP Pulse Ox 12/03/16 23:05 98.6 F 84 16 137/92 100 - Laboratory Lab Results: Lab Results 12/04/16 12/04/16 12/04/16 Range/Units 02:50 02:50 02:50 WBC 3.8 (3.5-10.8) 10^3/ul RBC 3.37 L (4.0-5.4) 10^6/ul Hgb 9.3 L (12.0-16.0) g/dl Hct 29 L (35-47) % MCV 85 (80-97) fL MCH 28 (27-31) pg MCHC 33 (31-36) g/dl RDW 14 (10.5-15) % Plt Count 177 (150-450) 10^3/ul MPV 8 (7.4-10.4) um3 Neut % (Auto) 49.2 (38-83) % Lymph % (Auto) 39.3 (25-47) % Morrill % (Auto) 6.9 (1-9) % Eos % (Auto) 2.0 (0-6) % Baso % (Auto) 2.6 H (0-2) % Absolute Neuts (auto) 1.9 (1.5-7.7) 10^3/ul Absolute Lymphs (auto) 1.5 (1.0-4.8) 10^3/ul Absolute Monos (auto) 0.3 (0-0.8) 10^3/ul Absolute Eos (auto) 0.1 (0-0.6) 10^3/ul Absolute Basos (auto) 0.1 (0-0.2) 10^3/ul Absolute Nucleated RBC 0 10^3/ul Nucleated RBC % 0.1 INR (Anticoag Therapy) 0.93 (0.89-1.11) APTT 30.2 (26.0-36.3) seconds Sodium 137 (133-145) mmol/L Potassium 3.9 (3.5-5.0) mmol/L Chloride 105 (101-111) mmol/L Carbon Dioxide 25 (22-32) mmol/L Anion Gap 7 (2-11) mmol/L BUN 18 (6-24) mg/dL Creatinine 1.34 H (0.51-0.95) mg/dL Est GFR ( Amer) 52.6 (>60) Est GFR (Non-Af Amer) 40.9 (>60) BUN/Creatinine Ratio 13.4 (8-20) Glucose 69 L (70-100) mg/dL Lactic Acid (0.5-2.0) mmol/L Calcium 8.7 (8.6-10.3) mg/dL Total Bilirubin 0.20 (0.2-1.0) mg/dL AST 16 (13-39) U/L ALT 10 (7-52) U/L Alkaline Phosphatase 54 (34-104) U/L Total Creatine Kinase 65 (10-223) U/L CK-MB (CK-2) 0.9 (0.6-6.3) ng/mL Troponin I 0.00 (<0.04) ng/mL C-Reactive Protein 6.74 H (< 5.00) mg/L B-Natriuretic Peptide ( - 100) pg/mL Total Protein 7.1 (6.4-8.9) g/dL Albumin 3.5 (3.2-5.2) g/dL Globulin 3.6 (2-4) g/dL Albumin/Globulin Ratio 1.0 (1-3) Lipase 20 (11.0-82.0) U/L 12/04/16 12/04/16 Range/Units 02:50 02:50 WBC (3.5-10.8) 10^3/ul RBC (4.0-5.4) 10^6/ul Hgb (12.0-16.0) g/dl Hct (35-47) % MCV (80-97) fL MCH (27-31) pg MCHC (31-36) g/dl RDW (10.5-15) % Plt Count (150-450) 10^3/ul MPV (7.4-10.4) um3 Neut % (Auto) (38-83) % Lymph % (Auto) (25-47) % Morrill % (Auto) (1-9) % Eos % (Auto) (0-6) % Baso % (Auto) (0-2) % Absolute Neuts (auto) (1.5-7.7) 10^3/ul Absolute Lymphs (auto) (1.0-4.8) 10^3/ul Absolute Monos (auto) (0-0.8) 10^3/ul Absolute Eos (auto) (0-0.6) 10^3/ul Absolute Basos (auto) (0-0.2) 10^3/ul Absolute Nucleated RBC 10^3/ul Nucleated RBC % INR (Anticoag Therapy) (0.89-1.11) APTT (26.0-36.3) seconds Sodium (133-145) mmol/L Potassium (3.5-5.0) mmol/L Chloride (101-111) mmol/L Carbon Dioxide (22-32) mmol/L Anion Gap (2-11) mmol/L BUN (6-24) mg/dL Creatinine (0.51-0.95) mg/dL Est GFR ( Amer) (>60) Est GFR (Non-Af Amer) (>60) BUN/Creatinine Ratio (8-20) Glucose (70-100) mg/dL Lactic Acid 0.8 (0.5-2.0) mmol/L Calcium (8.6-10.3) mg/dL Total Bilirubin (0.2-1.0) mg/dL AST (13-39) U/L ALT (7-52) U/L Alkaline Phosphatase (34-104) U/L Total Creatine Kinase (10-223) U/L CK-MB (CK-2) (0.6-6.3) ng/mL Troponin I (<0.04) ng/mL C-Reactive Protein (< 5.00) mg/L B-Natriuretic Peptide 64 ( - 100) pg/mL Total Protein (6.4-8.9) g/dL Albumin (3.2-5.2) g/dL Globulin (2-4) g/dL Albumin/Globulin Ratio (1-3) Lipase (11.0-82.0) U/L Result Diagrams: 12/04/16 02:50 12/04/16 02:50 Lab Statement: Any lab studies that have been ordered have been reviewed, and results considered in the medical decision making process. - CT BRAIN CT Interpretation Completed By: Radiologist - FINDINGS: OLD LEFT MIDDLE CEREBRAL ARTERY TERRITORY INFARCT AGAIN NOTED. NO VISIBLE ACUTE INFARCT. NO VISIBLE MASS. NO BLEED. FATTY DROPLET AGAIN NOTED IN THE TRIGONE OF THE LEFT LATERAL VENTRICLE. - Additional Comments Diagnostic Additional Comments: Troponin I - 0.00 Complex Multi-Symp Course/Dx Assessment/Plan: PAIN IMPROVED IN ED. WHEN ASKED, PATIENT STATES SHE GETS THIS PAIN INTERMITTENTLY ON YOU FLACID SIDE. DISCUSSED RESULTS WITH PATIENT. DISCUSSED ADMISSION VERSES GOING HOME WITH THE PATIENT, SHE PREFERS TO GO HOME. DISCHARGE HOME STABLE. - Diagnoses Provider Diagnoses: Arm and leg pain Discharge - Discharge Plan Condition: Stable Disposition: HOME Patient Education Materials: Arm Pain (ED), Leg Pain (ED) Referrals: Nabila Graf MD [Primary Care Provider] - Additional Instructions: FOLLOW UP WITH YOUR DOCTOR. RETURN TO THE EMERGENCY DEPARTMENT FOR ANY WORSENING OF YOUR CONDITION; CHEST OR ABDOMINAL PAIN, SHORTNESS OF BREATH, YOU FEEL ILL OR QUESTIONS OR CONCERNS. The documentation as recorded by the Juan Antonio agustin Adam accurately reflects the service I personally performed and the decisions made by me, Scott Toscano MD.
[2016-12-04 05:23] VITALS: BP 122/84
--- NOTE | 2016-12-04 08:04 | RAD ---
INDICATION: Headache COMPARISON: Most recent comparison brain CT dated January 17, 2003 TECHNIQUE: Contiguous axial sections of the brain were obtained from the skull base to the vertex without contrast. FINDINGS: Similar to the previous CT examination there is encephalomalacia involving the left cerebral hemisphere in the MCA distribution. There is asymmetric involutional change of the left ventricle also similar to the previous CT examination. A low density focus measuring 5 mm in the posterior horn of the left ventricle is unchanged from the previous CT examination. Elsewhere the ventricles and sulci are appropriate in size and morphology. The de la cruz-white matter differentiation is adequately maintained. There is no hyperdense intracranial material to indicate acute intracranial hemorrhage. The calvarium is intact. The visualized portion of the paranasal sinuses and mastoid air cells appear clear. IMPRESSION: Stable left hemisphere encephalomalacia and left lateral ventricular involution without evidence of acute intracranial process.
== END 2016-12-04 05:22 | disposition home or self-care (01) ==
LOC: ED 23:03
DX: M79.603 Pain in arm, unspecified (principal); M79.606 Pain in leg, unspecified; R55 Syncope and collapse; R51 Headache; R53.1 Weakness
CPT/HCPCS: 36415; 70450; 80053; 82550; 82553; 83605; 83690; 83880; 84484; 85025; 85610; 85730; 86140; 96374; 96375; 99283; J2270; J2405

== ENCOUNTER 2017-03-25 06:10 | Inpatient (IN) | payer MEDICARE, MEDICAID ==
--- NOTE | 2017-03-18 23:19 | HP ---
PREOPERATIVE HISTORY AND PHYSICAL: DATE OF SURGERY/ADMISSION: 03/25/17 PROCEDURE: Conversion of painful right hip hemiarthroplasty to total hip arthroplasty. CHIEF COMPLAINT: Right hip pain. HISTORY OF PRESENT ILLNESS: Neetu Rao is a 56-year-old female who has had persistent right hip pain, status post right hip hemiarthroplasty about a year and a half ago. Over the last year and a half, she has developed 6/10 pain in the right groin. She has continued with conservative treatment s which have failed. She does have a significant past medical history of CVA with right-sided hemipa resis. The patient has elected to proceed with a conversion of painful right hip hemiarthroplasty t o total hip arthroplasty with Dr. Canseco. This is scheduled for 03/25/17. PAST MEDICAL HISTORY: 1. Stroke, right-sided hemiplegia. 2. Hiatal hernia. 3. Systemic lupus erythematosus. 4. Hidradenitis. 5. Seizures. 6. Osteopenia. PAST SURGICAL HISTORY: 1. Conversion of painful left hip hemiarthroplasty to total hip arthroplasty, right hemiarthroplast y. 2. Thyroidectomy. MEDICATIONS: 1. Amlodipine besylate. 2. Aspirin. 3. Bystolic. 4. Calcium 600 plus D. 5. Famotidine. 6. Gabapentin. 7. Hydroxychloroquine sulfate. 8. Phenobarbital. ALLERGIES: To NITROFURANTOIN and SULFA ANTIBIOTICS. FAMILY HISTORY: Parkinson's and cancer. SOCIAL HISTORY: She is unemployed, lives alone. Denies tobacco use, she quit 25 years ago. Denies alcohol or illicit drug use. REVIEW OF SYSTEMS: A complete 14-point review of systems was reviewed with the patient and was posi tive for dizziness about a month ago. Positive for a history of seizures and stroke. Positive for thyroid issues and positive for MRSA. She was negative for known anesthesia problems, negative for history of DVT and negative for hepatitis C or HIV. PHYSICAL EXAMINATION GENERAL: Well-developed, well-nourished 56-year-old female in no acute distress. VITAL SIGNS: Height is 63, weight pounds. Pulse is 80, blood pressure 135/90, temperature 9 6.6. BMI is 28.3. HEENT: Normocephalic, atraumatic. NECK: Supple. No palpable lymph nodes. PULMONARY: Lungs clear to auscultation bilaterally. No wheezes, rales, or rhonchi. CARDIO: Regular rate and rhythm. S1, S2. No murmurs, rubs, or gallops. No edema. ABDOMEN: Soft, nontender. Positive bowel sounds throughout. NEUROLOGIC: Alert and oriented x3. Cranial nerves II through XII intact. MUSCULOSKELETAL: She does wear the AFO brace on the right and does have right- sided hemiparesis. STUDIES: X-rays that were obtained, 01/06/17, showed right hip replacement in satisfactory positio n. No evidence of periprosthetic fracture is noted. Sclerotic lesion in her right ilium, unchanged . IMPRESSION: Neetu is a 56-year-old female with right painful hemiarthroplasty. PLAN: The patient is scheduled to undergo a conversion of painful right hip hemiarthroplasty to tot al hip arthroplasty on 03/25/[address] Canseco. She will return to the office 10 to 14 days postop for followup and suture removal. Plan was for the patient to go to short-term rehab postoperatively and pain medications will be addressed at the time of discharge. ANALI MUNGUIA [id number]/[facility] #: [id number]
[2017-03-25] MEDS ORDERED: ceFAZolin 2 GM PREMIX(*) 2 GM/50 ML BAG IVPB ONE (06:14)
[2017-03-25] MEDS ORDERED: Buffered Lidocaine 1% SYRIN* 5 ML/SYR SYRINGE ONE (06:14)
[2017-03-25] MEDS ORDERED: Midazolam* 1 MG/ML 2 ML VIAL (2 MG) ONE (07:38)
[2017-03-25] MEDS ORDERED: fentaNYL* 50 MCG/ML 2 ML VIAL (100 MCG VIAL) ONE (07:38)
[2017-03-25] MEDS ORDERED: HYDROmorphone* 1 MG/ML 1 ML SYR ONE ×3 (08:50→13:48)
[2017-03-25] MEDS ORDERED: Bacitracin IV* 50,000 UNITS INJ ONE ×2 (10:44→11:41)
[2017-03-25] MEDS ORDERED: Propofol* 10 MG/ML 20 ML BTL IV PUSH ONE (10:48)
[2017-03-25] MEDS ORDERED: Lidocaine 2% PF * 5 ML VIAL ONE (10:48)
[2017-03-25] MEDS ORDERED: Succinylcholine* 20 MG/ML 10 ML VIAL ONE (10:48)
[2017-03-25] MEDS ORDERED: Ondansetron INJ* 2 MG/ML VIAL ONE (10:48)
[2017-03-25] MEDS ORDERED: Dexamethasone IV* 4 MG/ML 1 ML (4 MG) ONE (10:48)
[2017-03-25] MEDS ORDERED: Scopolamine 1.5 mg* PATCH TRANSDERM PRN (12:32)
[2017-03-25] MEDS ORDERED: Metoclopramide IV* 5 MG/ML 2 ML VIAL IV PRN (12:32)
[2017-03-25] MEDS ORDERED: diPHENhydraMINE IV* 50 MG/ML 1 ml VIAL (BENADRYL) IV PRN (13:13)
[2017-03-25] MEDS ORDERED: Acetaminophen TAB* 325 MG PO PRN (13:13)
[2017-03-25] MEDS ORDERED: Ondansetron INJ* 2 MG/ML VIAL IV PRN (13:13)
[2017-03-25] MEDS ORDERED: oxyCODONE TAB* 5 MG TAB PO PRN (13:13)
[2017-03-25] MEDS ORDERED: Magnesium Hydroxide LIQ* 30 ML UDC PO PRN (13:13)
[2017-03-25] MEDS ORDERED: Bisacodyl SUPP* 10 MG SUPP PR PRN (13:13)
[2017-03-25] MEDS ORDERED: oxyCODONE/Acetamin 5/325 MG* TAB PO PRN (13:13)
[2017-03-25] MEDS ORDERED: Baclofen TAB* 20 MG PO PRN (13:20)
[2017-03-25] MEDS: HYDROmorphone* 1 MG/ML 1 ML SYR IV PRN ×3 (13:51→14:07)
--- NOTE | 2017-03-25 14:13 | RAD ---
HISTORY: Status post right hip arthroplasty COMPARISONS: January 06, 2017 VIEWS: 2, frontal views of the pelvis FINDINGS: BONE DENSITY: Normal. BONES: The patient is status post bilateral hip arthroplasty. There is been conversion from a hemiarthroplasty 2 total arthroplasty in the right. On the submitted frontal projections, there is no appreciable hardware failure or osteolysis. There is a stable bone island of the right ilium. JOINTS: The patient is status post bilateral hip arthroplasty ALIGNMENT: There is no dislocation. SOFT TISSUES: Unremarkable. OTHER FINDINGS: None. IMPRESSION: STATUS POST BILATERAL HIP ARTHROPLASTY
[2017-03-25] MEDS: oxyCODONE/Acetamin 5/325 MG* TAB PO PRN ×2 (15:28→19:27)
[2017-03-25] MEDS: Morphine INJ* 2 MG/ML 1 ML SYRINGE IV PRN ×2 (15:29→22:03)
--- NOTE | 2017-03-25 16:19 | CONS ---
CONSULTATION REPORT: DATE OF CONSULT: 03/25/17 PRIMARY CARE PHYSICIAN: Dr. Nabila Barrera. ATTENDING PHYSICIAN WHILE IN THE HOSPITAL: Caroline Reyes DO (report being dictated by Ada Cruz NP). REASON FOR MEDICAL CONSULTATION: Evaluation and management of comorbid medical conditions. REQUESTING PHYSICIAN FOR CONSULTATION: Dr. Canseco. HISTORY OF PRESENT ILLNESS: I refer you to Dr. Canseco's H and P for further details. In short, Mrs. Rao is a 56-year-old female patient who has been complaining of having right hip pain. She has had a hemiarthroplasty about a year and a half ago and over the last year and a half, she has developed 6/10 pain in the right groin. She had continued with conservative therapies and treatments but had failed. She sought care again with Dr. Canseco and it was felt that she would benefit from a total hip replacement on the right side which she underwent today, she underwent a conversion. The patient does carry a history of stroke, right- sided hemiplegia, hiatal hernia, lupus, seizures, osteopenia, and because of this, we were asked to evaluate in consult. She denies having any nausea or vomiting. She does feel a little drowsy, does feel a little tired. She denies having any chest pain. She states that her pain is controlled in her right hip. She says that other than this issue, she is feeling well. Again, she does carry a significant medical history and because of this, we were asked to evaluate. PAST MEDICAL HISTORY: Significant for: 1. History of CVA. 2. Seizure. 3. Lupus. 4. Avascular necrosis. 5. MRSA in the past. 6. Depression. 7. Hypertension. 8. History of osteopenia. PAST SURGICAL HISTORY: She has had right and left hemiarthroplasties. She has had a left total hip replacement and she has also had a partial thyroidectomy. HOME MEDICATIONS: Include according to the list that she provided us: 1. Percocet 1 tablet p.o. every 4 hours as needed. 2. Amlodipine 5 mg daily. 3. Phenobarbital 64.8 mg p.o. b.i.d. 4. Bystolic 5 mg daily. 5. Plaquenil 200 mg p.o. b.i.d. 6. Neurontin 600 mg p.o. b.i.d. 7. Pepcid 20 mg p.o. daily. 8. Calcium with vitamin D, one tablet p.o. b.i.d. 9. Baclofen 20 mg p.o. b.i.d. as needed. 10. Aspirin 81 mg daily as needed. ALLERGIES: To medications include MACRODANTIN and SULFA drugs. FAMILY HISTORY: Reviewed and noncontributory. SOCIAL HISTORY: She is a former smoker, does not smoke currently. She does not drink alcohol. Surrogate decision maker is her son, Yayo. PHYSICAL EXAM: Reveals vital signs, blood pressure 116/71, pulse of 71, respirations 18, O2 sat of 100%, and temperature 97.3. General: At this time, Mrs. Rao is a 56-year-old female patient. She is sitting in the postoperative bed. She does not appear to be in any acute distress. She is awake and she is alert. HEENT: Head is atraumatic and normocephalic. Eyes; sclerae anicteric and not pale. Neck was supple. Throat: Oral mucosa appears to be moist, no oropharyngeal erythema. Heart sounds S1 and S2. Regular rate and rhythm. No murmurs, rubs, or gallops. Lungs were clear to auscultation bilaterally. No wheezes, rales, or rhonchi. Abdomen was soft, flat, bowel sounds hypoactive. Extremities: Pulses were 2+ throughout. She is unable to move the lower extremities as she does have a hip abductor pillow intact with distal CSM checks intact to bilateral lower extremities. The right upper extremity, again she has no movement as this is hemiplegic from a stroke in the past. Neurologically though, she is awake, she is still drowsy, but she follows commands appropriately. Her tongue was midline. She had a slight fascial droop on the right side. She had again no movement in the right upper extremity and again at this point she had no other gross obvious focal deficits. Her skin is intact with the exception she has an incision to the right hip which is clean, dry, and intact. DIAGNOSTIC STUDIES/LAB DATA: Preop revealed a WBC of 4.1, RBC of 4.68, hemoglobin of 9.9, hematocrit of 31, with platelet count of 179. His INR was 1. Sodium 140, potassium 3.8, chloride of 106, bicarb of 28, BUN of 1.26, glucose 65. Urine showed 2+ protein, 2+ leukocyte esterase. Urine culture was negative. She did have a preop EKG which showed a normal sinus rhythm, rate of 65. No ST elevation or T-wave inversions. Old medical records reviewed. ASSESSMENT AND PLAN: Mrs. Rao is a 56-year-old female patient coming in to orthopedic service today for conversion of a right hemiarthroplasty to a right total hip. We were asked to evaluate in consult. Recommendations at this point are: 1. Status post right total hip. I will defer the management to Dr. Canseco and his team. 2. History of cerebrovascular accident. Continue with secondary prevention. She is on aspirin, we will continue this and we will continue to follow. 3. History of seizures. Continue her phenobarbital. Seizure precaution should be ordered. 4. Lupus (continue her Plaquenil). 5. History of hiatal hernia. She can follow up with her primary, not active issue at this point. 6. History of avascular necrosis. Follow up with her primary team. 7. History of osteopenia. Follow up with her primary care provider. 8. Hypertension. Continue with her current medications with hold parameters. 9. DVT prophylaxis, defer to the primary team. 10. Fluids, electrolytes, and nutrition. She can have a regular diet. 11. Code status, full code. TIME SPENT: Time spent on the consult was 60 minutes, greater than half the time was spent [id number] with the patient obtaining my history and physical; the other half time spent going over the plan of care with the patient, implementing the plan of care. I discussed the plan of care with my attending Dr. Reyes; she is in agreement. ADA CRUZ NP CC: Dr. Nabila Barrera; Dr. Canseco* [id number]/[facility] #: [id number] MTDScott
[2017-03-25] MEDS: ceFAZolin VIAL(*) 1 GM in NS 0.9% 50 ML* 50 ML IVPB SCH ×2 (16:37→22:00)
[2017-03-25 20:48] LABS: Hematocrit 30 % (35-47); Hemoglobin 9.6 g/dl (12.0-16.0)
[2017-03-25] MEDS: Hydroxychloroquine TAB* 200 MG PO SCH (20:53)
[2017-03-25] MEDS: PHENobarbital TAB(*) 30 MG PO SCH (20:54)
[2017-03-25] MEDS: Docusate CAP* 100 MG PO SCH (20:54)
[2017-03-26] MEDS: oxyCODONE/Acetamin 5/325 MG* TAB PO PRN ×4 (00:43→17:27)
[2017-03-26] MEDS: Morphine INJ* 2 MG/ML 1 ML SYRINGE IV PRN ×3 (00:44→17:25)
[2017-03-26] MEDS: ceFAZolin VIAL(*) 1 GM in NS 0.9% 50 ML* 50 ML IVPB SCH ×2 (03:49→10:23)
[2017-03-26 07:13] LABS: Hematocrit 26 % (35-47); Hemoglobin 8.5 g/dl (12.0-16.0)
[2017-03-26 08:50] LABS: BUN/Creatinine Ratio 10.9 (8-20); Blood Urea Nitrogen 14 mg/dL (6-24); CO2 Carbon Dioxide 24 mmol/L (22-32); Calcium 7.7 mg/dL (8.6-10.3); Chloride 109 mmol/L (101-111); EGFR African American 55.5 (>60); EGFR Non-African American 43.1 (>60); Glucose 79 mg/dL (70-100); Sodium 138 mmol/L (133-145)
[2017-03-26] MEDS ORDERED: amLODIPine TAB* 5 MG PO SCH (09:00)
[2017-03-26] MEDS ORDERED: Aspirin TAB* 325 MG PO SCH (09:00)
[2017-03-26] MEDS ORDERED: Nebivolol TAB (NF) 5 MG TAB PO SCH (09:00)
[2017-03-26] MEDS: amLODIPine TAB* 5 MG PO SCH (09:05)
[2017-03-26] MEDS: CMCS Nebivolol TAB (NF) 2.5 MG TAB PO SCH (09:05)
[2017-03-26] MEDS: PHENobarbital TAB(*) 30 MG PO SCH ×2 (09:06→20:20)
[2017-03-26] MEDS: Vitamin THERAPEUTIC TAB PO SCH (09:07)
[2017-03-26] MEDS: Docusate CAP* 100 MG PO SCH ×2 (09:07→20:20)
[2017-03-26] MEDS: Hydroxychloroquine TAB* 200 MG PO SCH ×2 (09:07→20:20)
--- NOTE | 2017-03-26 16:58 | PN ---
Subjective Date of Service: 03/26/17 Interval History: Patient seen and examined at bedside. Pt states that she is feeling well. Denies fever, chills, shortness of breath, chest discomfort, N/V/D. Reports mild lightheadedness when getting OOB. Family History: Unchanged from Admission Social History: Unchanged from Admission Past Medical History: Unchanged from Admission Objective Active Medications: Acetaminophen (Tylenol Tab*) 650 mg PO Q4H PRN Reason: pain or temp Amlodipine Besylate (Norvasc Tab*) 5 mg PO DAILY [facility] Aspirin (Aspirin Tab*) 325 mg PO DAILY [facility] Stop: 03/27/17 01:00 Aspirin (Aspirin Ec Low Dose*) 81 mg PO DAILY [facility] Baclofen (Lioresal Tab*) 20 mg PO BID PRN Reason: SPASMS Bisacodyl (Dulcolax Supp*) 10 mg [place] DAILY PRN Reason: constipation Diphenhydramine HCl (Benadryl Iv*) 25 mg IV Q6H PRN Reason: itching or insomnia Docusate Sodium (Colace Cap*) 100 mg PO BID [facility] Hydroxychloroquine Sulfate (Plaquenil Tab*) 200 mg PO BID [facility] Lactated Ringer's (Lactated Ringers 1000 Ml Bag*) 1,000 mls @ 125 mls/hr IV PER RATE [facility] Lactulose (Lactulose*) 30 ml PO Q6H PRN Reason: constipation Magnesium Hydroxide (Milk Of Magnesia Liq*) 30 ml PO Q6H PRN Reason: constipation Morphine Sulfate (Morphine Inj (Syringe)*) 2 mg IV Q30M PRN Reason: PAIN - UNCONTROLLED Multivitamins (Theragran Tab*) 1 tab PO DAILY [facility] Nebivolol (Bystolic Tab (Nf)) 5 mg PO DAILY [facility] Ondansetron HCl (Zofran Inj*) 4 mg IV Q6H PRN Reason: nausea Oxycodone HCl (Roxycodone Tab*) 10 mg PO Q4H PRN Reason: PAIN - SEVERE Oxycodone/Acetaminophen (Percocet 5/325 Tab*) 1 tab PO Q3H PRN Reason: PAIN - MODERATE Oxycodone/Acetaminophen (Percocet 5/325 Tab*) 2 tab PO Q3H PRN Reason: PAIN - MODERATE TO SEVERE Pharmacy Profile Note (Scopolomine Patch Remove*) 1 note PATCH OFF Q72H ONE Stop: 03/28/17 12:34 Phenobarbital (Phenobarbital Tab(*)) 60 mg PO BID [facility] Warfarin Sodium (Coumadin Tab(*)) 5 mg PO ONCE ONE Stop: 03/26/17 17:01 Warfarin Sodium (Coumadin Tab(*)) 3 mg PO ONCE ONE Stop: 03/27/17 17:01 Vital Signs 03/25/17 03/25/17 03/25/17 17:19 18:27 19:27 Temperature 98.4 F Pulse Rate 73 Respiratory 16 16 17 Rate Blood Pressure 105/70 (mmHg) O2 Sat by Pulse 95 95 Oximetry 03/25/17 03/25/17 03/25/17 20:00 20:06 20:54 Temperature 98.5 F Pulse Rate 98 Respiratory 17 16 17 Rate Blood Pressure 114/70 (mmHg) O2 Sat by Pulse 100 Oximetry 03/25/17 03/25/17 03/26/17 23:03 23:32 00:43 Temperature 98.4 F Pulse Rate 100 Respiratory 16 16 16 Rate Blood Pressure 109/69 (mmHg) O2 Sat by Pulse 100 Oximetry 03/26/17 03/26/17 03/26/17 03:20 03:31 04:31 Temperature 98.7 F Pulse Rate 99 Respiratory 14 16 16 Rate Blood Pressure 101/61 (mmHg) O2 Sat by Pulse 100 Oximetry 03/26/17 03/26/17 03/26/17 05:29 07:24 07:27 Temperature 98.0 F Pulse Rate 85 Respiratory 16 16 16 Rate Blood Pressure 99/60 (mmHg) O2 Sat by Pulse 100 Oximetry 03/26/17 03/26/17 03/26/17 11:38 12:36 16:05 Temperature 98.1 F 98.1 F Pulse Rate 82 91 Respiratory 16 18 16 Rate Blood Pressure 99/55 112/66 (mmHg) O2 Sat by Pulse 100 92 Oximetry Oxygen Devices in Use Now: None Appearance: NAD, sitting up in bed Eyes: No Scleral Icterus Respiratory: Symmetrical Chest Expansion and Respiratory Effort, Clear to Auscultation Cardiovascular: NL Sounds; No Murmurs; No JVD, RRR Abdominal: NL Sounds; No Tenderness; No Distention Extremities: - - Dressing to right hip clean, dry and intact. Neurological: Alert and Oriented x 3, NL Muscle Strength and Tone, - - Right sided hemiplegia - baseline Lines/Tubes/Other Access: Clean, Dry and Intact Peripheral IV - site benign Nutrition: Taking PO's Result Diagrams: 03/26/17 06:24 03/26/17 11:15 Microbiology and Other Data: Microbiology 03/25/17 10:30 Anaerobic Culture - Preliminary Wound - Hip Right No Growth Day 1 Gram Stain - Final Wound Culture - Preliminary No Growth Day 1 Assess/Plan/Problems-Billing Assessment: Ms. Rao is a 56 yo female with PMH significant for CVA, seizures, lupus, and avacular necrosis and osteoarthritis who presented to the hospital for an elective conversion of a right hip hemiarthroplasty to a right hip total arthroplasty. - Patient Problems (1) S/P total hip arthroplasty Code(s): Z96.649 - PRESENCE OF UNSPECIFIED ARTIFICIAL HIP JOINT SNOMED Code(s) : 913574143419 Comment: - POD #1 - Management per ortho. - Pain management. - Bowel regimen. - HH stable; monitor. - PT/OT. (2) History of CVA with residual deficit Code(s): I69.30 - UNSPECIFIED SEQUELAE OF CEREBRAL INFARCTION SNOMED Code(s): 868591356 Comment: - with right-sided numbness and weakness at baseline (3) Lupus Code(s): M32.9 - SYSTEMIC LUPUS ERYTHEMATOSUS, UNSPECIFIED SNOMED Code(s): 72153430 Comment: - Continue Plaquenil. (4) Seizure Code(s): R56.9 - UNSPECIFIED CONVULSIONS SNOMED Code(s): 07306276 Comment: - No seizure activity. - Continue phenobarbital. - Seizure precautions. (5) Hypertension Code(s): I10 - ESSENTIAL (PRIMARY) HYPERTENSION SNOMED Code(s): 70653009 Comment: - BP well controlled. - Continue nebivolol and norvasc with hold parameters. (6) DVT prophylaxis Code(s): MBA2627 - SNOMED Code(s): 216627003 Comment: - ASA and Warfarin per Ortho (7) Full code status Code(s): Z78.9 - OTHER SPECIFIED HEALTH STATUS SNOMED Code(s): 630930312 Status and Disposition: Inpatient. Discharge per orthopedics.
[2017-03-26] MEDS ORDERED: Warfarin TAB(*) 5 MG PO ONE (17:00)
[2017-03-27 06:32] LABS: Hematocrit 29 % (35-47); Hemoglobin 9.8 g/dl (12.0-16.0)
[2017-03-27 06:34] LABS: Comments Flag Yes
[2017-03-27] MEDS ORDERED: Morphine INJ* 2 MG/ML 1 ML SYRINGE ONE (08:00)
--- NOTE | 2017-03-27 08:02 | PN ---
Subjective Date of Service: 03/27/17 Interval History: Patient seen and examined at bedside. Pt states that she feels well today. Denies fever, chills, shortness of breath, chest discomfort, N/V/D. Pt states that she is urinating without difficulty and has moved her bowels post-op. Family History: Unchanged from Admission Social History: Unchanged from Admission Past Medical History: Unchanged from Admission Objective Active Medications: Acetaminophen (Tylenol Tab*) 650 mg PO Q4H PRN Reason: pain or temp Amlodipine Besylate (Norvasc Tab*) 5 mg PO DAILY [facility] Aspirin (Aspirin Ec Low Dose*) 81 mg PO DAILY [facility] Baclofen (Lioresal Tab*) 20 mg PO BID PRN Reason: SPASMS Bisacodyl (Dulcolax Supp*) 10 mg GA DAILY PRN Reason: constipation Diphenhydramine HCl (Benadryl Iv*) 25 mg IV Q6H PRN Reason: itching or insomnia Docusate Sodium (Colace Cap*) 100 mg PO BID [facility] Hydroxychloroquine Sulfate (Plaquenil Tab*) 200 mg PO BID [facility] Lactated Ringer's (Lactated Ringers 1000 Ml Bag*) 1,000 mls @ 125 mls/hr IV PER RATE [facility] Lactulose (Lactulose*) 30 ml PO Q6H PRN Reason: constipation Magnesium Hydroxide (Milk Of Magnwillard Liq*) 30 ml PO Q6H PRN Reason: constipation Morphine Sulfate (Morphine Inj (Syringe)*) 2 mg IV Q30M PRN Reason: PAIN - UNCONTROLLED Multivitamins (Theragran Tab*) 1 tab PO DAILY [facility] Nebivolol (Bystolic Tab (Nf)) 5 mg PO DAILY [facility] Ondansetron HCl (Zofran Inj*) 4 mg IV Q6H PRN Reason: nausea Oxycodone HCl (Roxycodone Tab*) 10 mg PO Q4H PRN Reason: PAIN - SEVERE Oxycodone/Acetaminophen (Percocet 5/325 Tab*) 1 tab PO Q3H PRN Reason: PAIN - MODERATE Oxycodone/Acetaminophen (Percocet 5/325 Tab*) 2 tab PO Q3H PRN Reason: PAIN - MODERATE TO SEVERE Pharmacy Profile Note (Scopolomine Patch Remove*) 1 note PATCH OFF Q72H ONE Stop: 03/28/17 12:34 Phenobarbital (Phenobarbital Tab(*)) 60 mg PO BID [facility] Warfarin Sodium (Coumadin Tab(*)) 3 mg PO ONCE ONE Stop: 03/27/17 17:01 Vital Signs 03/26/17 03/26/17 03/26/17 11:38 12:36 14:36 Temperature 98.1 F Pulse Rate 82 Respiratory 16 18 16 Rate Blood Pressure 99/55 (mmHg) O2 Sat by Pulse 100 Oximetry 03/26/17 03/26/17 03/26/17 16:05 17:25 17:27 Temperature 98.1 F Pulse Rate 91 Respiratory 16 20 18 Rate Blood Pressure 112/66 (mmHg) O2 Sat by Pulse 92 Oximetry 03/26/17 03/26/17 03/26/17 20:20 21:18 22:20 Temperature 98.4 F Pulse Rate 100 Respiratory 16 17 16 Rate Blood Pressure 134/80 (mmHg) O2 Sat by Pulse 100 Oximetry 03/26/17 03/26/17 03/27/17 22:56 23:24 02:22 Temperature 98.7 F 98.7 F 98.8 F Pulse Rate 98 99 102 Respiratory 18 16 16 Rate Blood Pressure 130/77 137/81 136/81 (mmHg) O2 Sat by Pulse 99 100 99 Oximetry Oxygen Devices in Use Now: None Appearance: NAD, laying in bed Respiratory: Symmetrical Chest Expansion and Respiratory Effort, Clear to Auscultation Cardiovascular: NL Sounds; No Murmurs; No JVD, RRR Abdominal: NL Sounds; No Tenderness; No Distention Extremities: No Edema Skin: No Rash or Ulcers Neurological: Alert and Oriented x 3, - - Right sided weakness - baseline Lines/Tubes/Other Access: Clean, Dry and Intact Peripheral IV - site benign Nutrition: Taking PO's Result Diagrams: 03/27/17 06:13 03/26/17 11:15 Microbiology and Other Data: Microbiology 03/25/17 10:30 Anaerobic Culture - Preliminary Wound - Hip Right No Growth Day 1 Gram Stain - Final Wound Culture - Preliminary No Growth Day 1 Assess/Plan/Problems-Billing Assessment: Ms. Rao is a 56 yo female with PMH significant for CVA, seizures, lupus, and avacular necrosis and osteoarthritis who presented to the hospital for an elective conversion of a right hip hemiarthroplasty to a right hip total arthroplasty. - Patient Problems (1) S/P total hip arthroplasty Code(s): Z96.649 - PRESENCE OF UNSPECIFIED ARTIFICIAL HIP JOINT SNOMED Code(s) : 836159627113 Comment: - POD #2 - Management per ortho. - Pain management. - Bowel regimen. - HH stable, received 1 unit RBCs last night per ortho. Continue to monitor - Continue PT/OT. (2) History of CVA with residual deficit Code(s): I69.30 - UNSPECIFIED SEQUELAE OF CEREBRAL INFARCTION SNOMED Code(s): 830236592 Comment: - with right-sided numbness and weakness at baseline (3) Lupus Code(s): M32.9 - SYSTEMIC LUPUS ERYTHEMATOSUS, UNSPECIFIED SNOMED Code(s): 64636963 Comment: - Continue Plaquenil. (4) Seizure Code(s): R56.9 - UNSPECIFIED CONVULSIONS SNOMED Code(s): 49361702 Comment: - No seizure activity. - Continue phenobarbital. - Seizure precautions. (5) Hypertension Code(s): I10 - ESSENTIAL (PRIMARY) HYPERTENSION SNOMED Code(s): 14979226 Comment: - BP well controlled. - Continue nebivolol and norvasc. (6) DVT prophylaxis Code(s): CSV9684 - SNOMED Code(s): 848890476 Comment: - ASA and Warfarin per Ortho (7) Full code status Code(s): Z78.9 - OTHER SPECIFIED HEALTH STATUS SNOMED Code(s): 207056052 Status and Disposition: Inpatient. Discharge per orthopedics. Pt is stable for discharge to [facility] from a medical standpoint. Will sign off at this time, please call with any questions.
[2017-03-27 08:14] VITALS: BP 139/81
[2017-03-27] MEDS: oxyCODONE/Acetamin 5/325 MG* TAB PO PRN (08:42)
[2017-03-27] MEDS: Docusate CAP* 100 MG PO SCH (08:43)
[2017-03-27] MEDS: amLODIPine TAB* 5 MG PO SCH (08:43)
[2017-03-27] MEDS: Vitamin THERAPEUTIC TAB PO SCH (08:43)
[2017-03-27] MEDS: PHENobarbital TAB(*) 30 MG PO SCH (08:43)
[2017-03-27] MEDS: CMCS Nebivolol TAB (NF) 2.5 MG TAB PO SCH (08:43)
[2017-03-27] MEDS: Hydroxychloroquine TAB* 200 MG PO SCH (08:43)
[2017-03-27] MEDS ORDERED: Aspirin TAB* 325 MG PO ONE (10:00)
--- NOTE | 2017-03-27 12:50 | OP ---
DATE OF OPERATION: 03/25/17 - ROOM #347 DATE OF : 60 SURGEON: Eleazar Canseco MD. ASSISTANTS: PA. Junior, first dyer; and Diana Marc, regional vice president surgical sales. ANESTHESIOLOGIST: Dr. Escamilla. ANESTHESIA: General. PRE-OP DIAGNOSIS: Painful right hip hemiarthroplasty. POST-OP DIAGNOSIS: Painful right hip hemiarthroplasty. OPERATIVE PROCEDURE: Conversion of the right hip hemiarthroplasty to a total hip arthroplasty. COMPLICATIONS: There were no complications. DRAINS: There were no drains. ESTIMATED BLOOD LOSS: 250 mL. REPLACEMENT: Crystalloid fluids. 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 DESCRIPTION OF PROCEDURE: The patient was brought to the operating room and placed on the operating room table in a supine position following the administration of the general anesthetic. The patient was carefully placed in the left lateral position, protecting the downside left leg to see that there was no pressure on the peroneal nerve, fibular head and neck. The hip was secured over the ASIS and the sacrum with a hip positioner. Blankets were placed between the legs and then the groin was carefully sealed off. The hip was given a preliminary chlorhexidine prep and then a final formal ChloraPrep from the hip to the foot. After prepping, draping, and carefully sealing off, we did our universal protocol time-out confirming Neetu Rao, and plan for a right hip hemiarthroplasty conversion to total hip arthroplasty. We all agreed and we proceeded. The hip was approached with a previous skin incision posterolateral left hip and into the proximal end. This was angled at 90 degrees for 1.5 inches going proximally and anteriorly. The skin and subcu divided down to the deep fascia. Careful hemostasis was checked and achieved throughout the case utilizing electrocautery. The hip was approached posteriorly. There was no bad looking fluid in the hip joint. A culture was done. Posterior capsulectomy was performed in going a little bit superiorly anteriorly. The hemiarthroplasty was dislocated. The prior bipolar type arthroplasty was removed from the trunnion. The stem was well fixed. The acetabulum was then carefully exposed removing old capsule and pseudocapsule and removing the granulation tissues from the acetabular cup. The acetabulum had no remaining cartilage. Careful reaming was done, 44 through 47, and at 47 we had nice bleeding subchondral and cancellous bone. A Biomet G7 cup with 3 holes was impacted into into position after cleaning the acetabulum several times pulsed saline irrigation. The new cup was impacted into position in 40 degrees of abduction, 20 degrees of anteversion with a nice tight fit. A single screw was placed superolaterally. We had a nice tight fit. The dual mobility Biomet liner for the 48 socket was impacted into position. Then the dual mobility liner, size 28/38, was impacted together with the +3.5 20 mm head, and unfortunately, this head was too big for the trunnion involved. At this point, we called for a new dual mobility liner size 28/38 and this was brought in from [place] and this was a one hour delay during the case. During this time, the patient was stable. I discussed things carefully with Dr. Escamilla. The wound was packed with antibiotic soaked lap sponges and all retractors were removed. When we resumed the case, we irrigated everything with pulsed saline irrigation and with pulsed antibiotic irrigation and the 28 mm head we had removed from the bipolar was impacted into the new dual mobility bearing and impacted on to the trunnion. The hip was reduced without difficulty. The hip was stable with no dislocation on extension. Negative push , pull, and extension. No tendency towards levering with IR or ER, flexion of 90 degrees, allowed adduction and internal rotation of 40 degrees prior to any subluxation of the hip. During closure, we irrigated several times with pulsed saline irrigation and pulsed antibiotic irrigation. The wound was swabbed with clean lap sponges. The deep fascia was reapproximated with interrupted #1 Polysorb in [id number] fashion. Deep and superficial subcu were closed with 0 and then 2-0 Polysorb sutures and then ramírez on the skin. The wound was washed several times during closure with saline. The wound was dressed with Betadine-soaked release, sterile gauze, ABD pads, and then paper tapes. The patient was returned to the recovery room in stable and satisfactory condition having tolerated the procedure very well. CC: Dr. Barrera* [id number]/[facility] #: [id number] MTDD
[2017-03-27] MEDS ORDERED: Warfarin TAB(*) 3 MG PO ONE (17:00)
[2017-03-28] MEDS ORDERED: Aspirin EC Low Dose* 81 MG TAB.EC PO SCH (09:00)
[2017-03-28] MEDS ORDERED: Scopolomine PATCH Remove* 1 NOTE MISC PATCH OFF ONE (12:33)
== END 2017-03-27 09:46 | DRG 467 ==
LOC: AA 06:10 → SSU 13:13
PROVIDERS: ADMIT Orthopaedic Surgery; ATTEND Orthopaedic Surgery
PROC: 0SPA0JZ Removal of Synthetic Substitute from Right Hip Joint, Acetabular Surface, Open Approach (ICD-10-PCS; 2017-03-25)
PROC: 0SR904A Replacement of Right Hip Joint with Ceramic on Polyethylene Synthetic Substitute, Uncemented, Open Approach (ICD-10-PCS; 2017-03-25)
PROC: 30233N1 Transfusion of Nonautologous Red Blood Cells into Peripheral Vein, Percutaneous Approach (ICD-10-PCS; principal; 2017-03-26)
DX: T84.84XA Pain due to internal orthopedic prosthetic devices, implants and grafts, initial encounter (principal); I69.951 Hemiplegia and hemiparesis following unspecified cerebrovascular disease affecting right dominant side; M32.9 Systemic lupus erythematosus, unspecified; R56.9 Unspecified convulsions; D62 Acute posthemorrhagic anemia; M85.80 Other specified disorders of bone density and structure, unspecified site; Z88.2 Allergy status to sulfonamides; Z88.8 Allergy status to other drugs, medicaments and biological substances; Z84.89 Family history of other specified conditions; Z82.0 Family history of epilepsy and other diseases of the nervous system; Z56.0 Unemployment, unspecified; Z87.891 Personal history of nicotine dependence; Z86.14 Personal history of Methicillin resistant Staphylococcus aureus infection; Z96.641 Presence of right artificial hip joint; I10 Essential (primary) hypertension; Y79.1 Therapeutic (nonsurgical) and rehabilitative orthopedic devices associated with adverse incidents; Y92.9 Unspecified place or not applicable; F32.9 Major depressive disorder, single episode, unspecified; R29.810 Facial weakness; K21.9 Gastro-esophageal reflux disease without esophagitis; D53.9 Nutritional anemia, unspecified
CPT/HCPCS: 36415; 72170; 80048; 85014; 85018; 86850; 86900; 86901; 86922; 87070; 87073; 87205; 88300; 94760; A9270-GY; J0330; J0690; J1100; J1170; J2250; J2270; J2405; J2704; J3010; P9040

== ENCOUNTER 2017-03-27 07:49 | Inpatient (IN) | payer MEDICARE, MEDICAID ==
[2017-03-27] MEDS ORDERED: Senna TAB PO PRN (10:55)
[2017-03-27] MEDS ORDERED: Magnesium Hydroxide LIQ* 30 ML UDC PO PRN (10:55)
[2017-03-27] MEDS ORDERED: Acetaminophen TAB* 325 MG PO PRN (10:55)
[2017-03-27] MEDS ORDERED: Baclofen TAB* 10 MG PO PRN (11:03)
--- NOTE | 2017-03-27 12:34 | DS ---
DISCHARGE SUMMARY: DATE OF ADMISSION: 03/25/17 DATE OF DISCHARGE: 03/27/17 FINAL DIAGNOSIS: Painful right hip hemiarthroplasty. SURGICAL CARE: On 03/25/17 right hip conversion of painful hemiarthroplasty to a total hip arthroplasty utilizing Biomet components. SECONDARY DIAGNOSES: 1. Acute blood loss anemia. She received 2 units of packed red blood cells for losses, and concern regarding possible continued losses. 2. Lupus. 3. Incontinence. 4. Chronic anemia. 5. Past major stroke with right-sided hemiparesis. 6. Avascular necrosis of the hips. 7. Hiatus hernia (this was recently noted on a chest x-ray). 8. Depression. 9. Hypertension. 10. Past methicillin-resistant Staphylococcus aureus. HOSPITAL COURSE: The patient was carefully evaluated by Dr. Barrera preoperatively. Surgical care was done on 03/25/17. Postoperatively her hematocrit was 29% and because of her chronic anemia and anticipated losses she was given 1 unit of packed red blood cells and on 03/26/17, her hematocrit was 26% and she was given another unit of packed red blood cells for anticipated or possible further losses. Her hematocrit on March 27 was 29% after 2 units of packed red blood cells. Her surgical wound was checked on March 27, it was clean, dry, minimally swollen, and was re-dressed with Betadine and Telfa. The patient will be discharged to the [facility]. We wanted to continue oral fluids and want her hematocrit checked on March 28. She will be on Coumadin for 3 to 4 weeks postoperatively with a goal INR of 2 and walker ambulation, weight bearing as tolerated on the right, and the usual left total hip protocol. She is very weak in the right lower extremity, so gentle assisted movements of the right lower extremity are certainly okay avoiding internal rotation. She will be followed up carefully be co in 3 to 4 weeks and as necessary. CC: Dr. Barrera.* [id number]/[facility] #: [id number] [facility] CENTERScott
[2017-03-27] MEDS: Hydroxychloroquine TAB* 200 MG PO SCH (17:15)
[2017-03-27] MEDS: Warfarin TAB(*) 3 MG PO SCH (17:15)
[2017-03-27] MEDS: Docusate CAP* 100 MG PO SCH (20:56)
[2017-03-27] MEDS: PHENobarbital TAB(*) 30 MG PO SCH (20:57)
[2017-03-27] MEDS: Gabapentin CAP(*) 300 MG PO SCH (20:57)
[2017-03-27] MEDS: oxyCODONE/Acetamin 5/325 MG* TAB PO PRN (21:32)
--- NOTE | 2017-03-27 23:24 | HP ---
ADMISSION HISTORY AND PHYSICAL: DATE OF ADMISSION: 03/27/17 REASON FOR ADMISSION: Right total hip replacement. HISTORY OF PRESENT ILLNESS: Neetu Rao is a 56-year-old female. She has a medical history significant for lupus. Thirty years ago, the patient was delivering a child and had a stroke during childbirth. It was felt that the stroke was secondary to lupus. She has had right-sided hemiplegia since that time. 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 She underwent a hemiarthroplasty of her left hip in 1997, which was done by Dr. Isma Lilly. In December of 2015 , that hemiarthroplasty was converted to a left total hip replacement. She has also undergone a right hemiarthroplasty. Over the past year and a half, she is developed significant pain in her right groin. She was treated with conservative treatments but it was felt that the best course of action might be to convert her to a total hip on the right. She was admitted to [facility] on March 25 and underwent a right total hip replacement. Postop, her course was notable for blood loss anemia. She did receive a unit of packed cells. She is now being admitted for inpatient rehab so she might return to independent living. PAST MEDICAL HISTORY: Significant for the aforementioned lupus with stroke and right hemiplegia, going back 30 years. She also has a history of chronic anemia and chronic kidney disease. She has had a thyroidectomy. She has a history of seizure disorder and hiatal hernia. CURRENT MEDICATIONS: Include: 1. Norvasc. 2. Aspirin. 3. She is on Plaquenil. 4. Bystolic. 5. Baclofen. 6. Percocet. 7. Phenobarbital. 8. Coumadin for DVT prophylaxis. ALLERGIES: To SULFA ANTIBIOTICS as well as MACRODANTIN and FENTANYL. SOCIAL HISTORY: She is a nonsmoker and nondrinker. She lives alone in an apartment at [facility]. Her mother also lives in the apartment building. REVIEW OF SYSTEMS: The patient reports no current shortness of breath or chest pain. PHYSICAL EXAMINATION VITAL SIGNS: The patient's temperature is 97.9, blood pressure is 134/81, pulse 78, and respirations are 18. HEENT: Her extraocular movements are intact. Tongue is midline. Neck is supple with no lymphadenopathy. LUNGS: Sound clear to auscultation bilaterally. HEART: Sounds regular. S1 and S2 audible. ABDOMEN: Soft and nontender. EXTREMITIES: Her right hip has a wound, which is clean and dry. There is some swelling around the hip. Her right arm is contracted in a flexion posture. NEUROLOGIC: She is awake, alert, and oriented. She has dysarthria from her chronic stroke but she is understandable. Muscle strength in her right arm is about 2/5 secondary to contractures. Right leg is about 4+/5. Otherwise, it is 5/5 on the left. FUNCTIONAL EXAM: She transfers with mod assistance. ASSESSMENT: Status post right total hip replacement in a patient with underlying right hemiplegia. PLAN: Integrate her into a comprehensive and therapeutic rehab program on the following goals: 1. Physical Therapy will see the patient. They are going to work on functional transfer training and ambulation training with the walker. 2. Occupational Therapy will see the patient and work on her activities of daily living including toileting and toilet transfers. 3. Coumadin for DVT prophylaxis. 4. Adequate analgesia. 5. Continue phenobarbital for seizure disorder. 6. Her bowels to be regulated. 7. director water and waste services will be closely involved to make sure that any services and equipment that the patient requires are in place prior to discharge. 8. Advance directives: The patient is a full code. Her son is her surrogate decision maker. 9. Home with appropriate services. ESTIMATED LENGTH OF STAY: Two weeks. [id number]/[id number] #: [id number] MTDD
[2017-03-28] MEDS: Gabapentin CAP(*) 300 MG PO SCH ×2 (08:04→21:13)
[2017-03-28] MEDS: amLODIPine TAB* 5 MG PO SCH (08:05)
[2017-03-28] MEDS: Hydroxychloroquine TAB* 200 MG PO SCH ×2 (08:05→16:43)
[2017-03-28] MEDS: Aspirin EC Low Dose* 81 MG TAB.EC PO SCH (08:05)
[2017-03-28] MEDS: PHENobarbital TAB(*) 30 MG PO SCH ×2 (08:05→21:14)
[2017-03-28] MEDS: Docusate CAP* 100 MG PO SCH ×2 (08:05→21:16)
[2017-03-28] MEDS: CMCS: Nebivolol TAB (NF) 2.5 MG TAB PO SCH (08:10)
[2017-03-28] MEDS: oxyCODONE/Acetamin 5/325 MG* TAB PO PRN ×3 (08:12→21:15)
[2017-03-28 08:36] LABS: Albumin 2.8 g/dL (3.2-5.2); BUN/Creatinine Ratio 12.5 (8-20); Calcium 8.2 mg/dL (8.6-10.3); EGFR African American 77.3 (>60); EGFR Non-African American 60.1 (>60); Globulin 3.2 g/dL (2-4); Potassium 4.2 mmol/L (3.5-5.0); Total Bilirubin 0.3 mg/dL (0.2-1.0)
[2017-03-28 08:37] LABS: Hematocrit 31 % (35-47); Hemoglobin 10.2 g/dl (12.0-16.0); Mean Corpuscular HGB Conc 33 g/dl (31-36); Mean Corpuscular Hemoglobin 29 pg (27-31); Mean Corpuscular Volume 86 fL (80-97); Mean Platelet Volume 8 um3 (7.4-10.4); Red Blood Count 3.58 10^6/ul (4.0-5.4); Red Cell Distribution Width 14 % (10.5-15); White Blood Count 5.7 10^3/ul (3.5-10.8)
--- NOTE | 2017-03-28 12:46 | PMRUTEAM ---
PMRU: Goals Current Status: Nursing: Current Status Skin Deviations [Right Hip] Incision Skin Deviation Description [ ramírez, dressing intact Right Hip] Physical Therapy: Current Status Bed Mobility Assistance mod A Transfer Moblility Assistance CGA Transfer/Bed Mobility norma walker Recommended Devices Ambulation Assistance CGA Ambulation Assistive Devices norma walker Stairs Assistance Not Tested Occupational Therapy: Current Status Upper Body Dressing Independent Lower Body Dressing Max Asst Bathing Max A Toileting Max a for hygiene Toilet Transfer CGA Eating set up Rec Therapy: Current Status Summary of Assessment and Pt. was resting - appeared very tired and would Clinical Impression close her eyes at times throughout conversation. Interaction was brief d/t to this. Pt. identified with some interests and confirmed with others that she had identified with during a previous admission. Treatment Goals Pt. will engage in leisure activities while on the unit. Treatment Plan Provide RT services and encourage involvement. Social Work: Current Status Discharge Plan return home with home care svs and family support Potential for Family Training TBD Anticipated Discharge Home Destination Discharge With home care svs and family support Goals: Physical Therapy: Updated Goals Modified Independent bed mobility, transfers and ambulation 150 ft with a straight cane. Occupational Therapy: Initial Goals Goals to be Completed in (Days 10-14 ) Upper Body Bathing Routine Independent Lower Body Bathing Routine Modified Independent with Lower Body Bathing Assistive Long-handled sponge prn Devices Comment Upper Body Dressing Routine Independent Lower Body Dressing Routine Modified Independent with Toilet Hygeine and Clothing Modified Independent with Management Routine Toilet Transfer Routine Modified Independent with Step-In Shower Transfer Minimal Contact Assist Routine Step-In Shower Assistive Pt receives Jeanie for showers/shower transfer at Devices baseline Functional Transfers for ADL Modified Independent with Grooming Routine Modified Independent with Feeding Routine Independent Light Housekeeping Tasks Modified Independent with Social Work: Goals Discharge Plan return home with home care svs and family support Potential for Family Training TBD Anticipated Discharge Home Destination Discharge With home care svs and family support Care Plan: Care Plan ADL's - Improve/Maintain Start: 03/27/17 15:20 Freq: QSHIFT Status: Active Target: Activity Type Activity Date Activity User E-Sign Co-Sign Detail Recorded Client Recorded Date Recorded By Document 03/28/17 10:42 [id number] 03/28/17 10:42 [id number] 03/28/17 10:42 PMRU Outcome: ADL's/ADL Transfers Orders/Interventions Occupational Therapy Evaluation & Treatment Communication Tool in Patient Room Device No Patient to receive OT 5x/wk for 60-120 Therex min/day Self Care Management Group Therapy UE/LE ADL's with Assist Yes ADL Transfers with Assist Yes Toileting: Transfers,Clothing Management Yes ,Hygeine w/Assist Light Kitchen/Laundry w/Assist Yes Progression Toward Outcome/Goals Progressing Outcome/Goals Met Pt progressing towards goals in order to return home to live alone with [employer] INTEGRATOR 3 x /week for bathing ADls and some IADLs. Communication-Improve/Maintain Start: 03/27/17 19:06 Freq: QSHIFT Status: Active Target: Activity Type Activity Date Activity User E-Sign Co-Sign Detail Recorded Client Recorded Date Recorded By Document 03/28/17 01:21 [id number] 03/28/17 01:21 [id number] 03/28/17 01:21 PMRU Outcome: Communication/Cognitive Status Outcome/Goals Use Comm Tools/ Devices Makes Needs Known Effectively Progression Toward Outcomes/Goals Progressing Outcome/Goals Met Comment makes needs known Coping/Psych-Improve/Maintain Start: 03/27/17 19:06 Freq: QSHIFT Status: Active Target: Activity Type Activity Date Activity User E-Sign Co-Sign Detail Recorded Client Recorded Date Recorded By Document 03/28/17 01:19 [id number] 03/28/17 01:20 [id number] 03/28/17 01:19 PMRU Outcome: Coping/Psychosocial Coping Outcome/Goals Verbalization of Acceptance of Rehab Admit Verbalization of Sense of Control Over Health Status Utilization of Appropriate Problem Solving Techniques Willingness to Participate in Treatment Plan and Basic Needs Utilization of Available Support Systems Absence of Destructive Behavior to Self/Others Psychosocial Outcome/Goals Maintain/ Improve Emotional Health Demonstrates Knowledge of Healthy Coping Mechanisms Available Cooperate/ Participate in Plan DVT Prophylaxis- Improve/Maintain Start: 03/27/17 19:06 Freq: QSHIFT Status: Active Target: Activity Type Activity Date Activity User E-Sign Co-Sign Detail Recorded Client Recorded Date Recorded By Document 03/28/17 01:19 [id number] 03/28/17 01:20 [id number] 03/28/17 01:19 PMRU Outcome: DVT Prophylaxis Outcome/Goals Remains Free of DVT TEDS Stockings on Every AM, Off at HS Discharge Planning - Improve/Maintain Start: 03/27/17 19:06 Freq: QSHIFT Status: Active Target: Activity Type Activity Date Activity User E-Sign Co-Sign Detail Recorded Client Recorded Date Recorded By Document 03/28/17 01:21 [id number] [email or web address] 03/28/17 01:21 [id number] 03/28/17 01:21 PMRU Outcome: Discharge Planning Outcome/Goals Demonstrates Understanding of Discharge Plan Education-Improve/Maintain Start: 03/27/17 19:06 Freq: QSHIFT Status: Active Target: Activity Type Activity Date Activity User E-Sign Co-Sign Detail Recorded Client Recorded Date Recorded By Document 03/28/17 01:19 [id number] 03/28/17 01:20 [id number] 03/28/17 01:19 PMRU Outcome: Education Outcome/Goals Demonstrate/ Verbalize Understanding of Written Discharge Instructions Encourage Questions /GI-Improve/Maintain Start: 03/27/17 19:06 Freq: QSHIFT Status: Active Target: Activity Type Activity Date Activity User E-Sign Co-Sign Detail Recorded Client Recorded Date Recorded By Document 03/28/17 01:19 [id number] 03/28/17 01:20 [id number] 03/28/17 01:19 PMRU Outcome: Genitourinary/ Gastrointestinal Genitourinary- Outcome/Goals Maintain/ Achieve Urinary Continence Remain Free of Hospital- Acquired UTI Gastrointestinal-Outcome/Goals Maintain/ Achieve Bowel Regularity in Accordance with Pt's Baseline Prevent Constipation Mobility- Improve/Maintain Start: 03/27/17 09:58 Freq: QSHIFT Status: Active Target: Activity Type Activity Date Activity User E-Sign Co-Sign Detail Recorded Client Recorded Date Recorded By Document 03/27/17 09:58 [id number] 03/27/17 09:59 [id number] 03/27/17 09:58 PMRU Outcome: Mobility Physical Therapy Evaluation and Yes Treatment Activity OOB with Assistance Yes WBAT Yes Device Yes Assistance Yes Patient to be seen 5x/wk for 60-120 min/ Therex day for: Mobility Training Gait Training Balance Outcome/Goals Maintain/ Achieve Baseline Mobility Status Improve Mobility Status Demonstrates Proper Use of Assistive Devices Free from Complications of Immobility Bed Mobility Yes: Independent Transfers Yes: Modified Independent with cane Gait x ft Yes: Modified Independent 150 ' with cane W/C Mobility x ft No Up/Down Stairs No With HEP Yes: Independent Nutrition/Swallowing- Improve/Maintain Start: 03/27/17 19:06 Freq: QSHIFT Status: Active Target: Activity Type Activity Date Activity User E-Sign Co-Sign Detail Recorded Client Recorded Date Recorded By Document 03/28/17 01:19 [id number] 03/28/17 01:20 [id number] 03/28/17 01:19 PMRU Outcome: Nutrition/Swallowing Outcome/Goals Demonstrates Adequate Hydration/ Prevents Dehydration Maintain/ Improve Nutritional Status Pain/Comfort- Improve/Maintain Start: 03/27/17 19:06 Freq: QSHIFT Status: Active Target: Activity Type Activity Date Activity User E-Sign Co-Sign Detail Recorded Client Recorded Date Recorded By Document 03/28/17 01:19 [id number] 03/28/17 01:20 [id number] 03/28/17 01:19 PMRU Outcome: Pain/Comfort Outcome/Goals Demonstrates Knowledge and Use of Available Comfort Measures Achieves Acceptable Comfort/Pain Level as Determined by Patient/Condit Maintain Comfort Level Allowing Patient to Fully Participate in Rehab Safety- Improve/Maintain Start: 03/27/17 19:06 Freq: QSHIFT Status: Active Target: Activity Type Activity Date Activity User E-Sign Co-Sign Detail Recorded Client Recorded Date Recorded By Document 03/28/17 01:19 [id number] 03/28/17 01:20 [id number] 03/28/17 01:19 PMRU Outcome: Safety Outcome/Goals Remain Free of Injury or Harm Cooperates with Safety Measures for Least Restrictive Environment Prevent Falls/ Injury Equipment Needed Skin- Improve/Maintain Start: 03/27/17 19:06 Freq: QSHIFT Status: Active Target: Activity Type Activity Date Activity User E-Sign Co-Sign Detail Recorded Client Recorded Date Recorded By Document 03/28/17 01:19 [id number] 03/28/17 01:20 [id number] 03/28/17 01:19 PMRU Outcome: Skin Skin Risk Level Medium Skin Orders Dressing Change Turn/Position q2hr While in Bed Outcome/Goals Maintain/ Improve Skin Intergrity Surgical Incisions Healing Medicine Note: Length of Stay: [1 week] Anticipated Discharge Destination: Home Tentative Discharge Date: [04/04/17] Discharged to: [home]
[2017-03-28] MEDS: Warfarin TAB(*) 3 MG PO SCH (16:43)
[2017-03-29] MEDS: Hydroxychloroquine TAB* 200 MG PO SCH ×2 (08:58→16:36)
[2017-03-29] MEDS: CMCS: Nebivolol TAB (NF) 2.5 MG TAB PO SCH (08:58)
[2017-03-29] MEDS: Docusate CAP* 100 MG PO SCH ×2 (08:58→21:12)
[2017-03-29] MEDS: Gabapentin CAP(*) 300 MG PO SCH ×2 (08:58→21:11)
[2017-03-29] MEDS: Aspirin EC Low Dose* 81 MG TAB.EC PO SCH (08:58)
[2017-03-29] MEDS: amLODIPine TAB* 5 MG PO SCH (08:58)
[2017-03-29] MEDS: PHENobarbital TAB(*) 30 MG PO SCH ×2 (09:47→21:10)
[2017-03-29] MEDS ORDERED: Polyethylene Glycol 3350* 17 GM PACKET PO PRN (10:06)
[2017-03-29] MEDS: oxyCODONE/Acetamin 5/325 MG* TAB PO PRN (11:34)
[2017-03-29] MEDS: Warfarin TAB(*) 3 MG PO SCH (16:35)
[2017-03-30] MEDS: Gabapentin CAP(*) 300 MG PO SCH ×2 (08:12→20:30)
[2017-03-30] MEDS: amLODIPine TAB* 5 MG PO SCH (08:12)
[2017-03-30] MEDS: PHENobarbital TAB(*) 30 MG PO SCH ×2 (08:12→20:30)
[2017-03-30] MEDS: Docusate CAP* 100 MG PO SCH ×2 (08:12→20:30)
[2017-03-30] MEDS: Hydroxychloroquine TAB* 200 MG PO SCH ×2 (08:12→16:53)
[2017-03-30] MEDS: CMCS: Nebivolol TAB (NF) 2.5 MG TAB PO SCH (08:13)
[2017-03-30] MEDS: Aspirin EC Low Dose* 81 MG TAB.EC PO SCH (08:13)
[2017-03-30] MEDS: Warfarin TAB(*) 3 MG PO SCH (16:53)
[2017-03-31] MEDS: Aspirin EC Low Dose* 81 MG TAB.EC PO SCH (09:06)
[2017-03-31] MEDS: Hydroxychloroquine TAB* 200 MG PO SCH ×2 (09:06→17:08)
[2017-03-31] MEDS: Gabapentin CAP(*) 300 MG PO SCH ×2 (09:06→20:28)
[2017-03-31] MEDS: amLODIPine TAB* 5 MG PO SCH (09:06)
[2017-03-31] MEDS: PHENobarbital TAB(*) 30 MG PO SCH ×2 (09:07→20:28)
[2017-03-31] MEDS: CMCS: Nebivolol TAB (NF) 2.5 MG TAB PO SCH (09:07)
[2017-03-31] MEDS: Docusate CAP* 100 MG PO SCH ×2 (09:09→20:26)
[2017-03-31] MEDS: Warfarin TAB(*) 5 MG PO SCH (17:08)
[2017-03-31] MEDS: oxyCODONE/Acetamin 5/325 MG* TAB PO PRN (23:55)
[2017-04-01] MEDS: Hydroxychloroquine TAB* 200 MG PO SCH ×2 (08:15→17:11)
[2017-04-01] MEDS: Aspirin EC Low Dose* 81 MG TAB.EC PO SCH (08:16)
[2017-04-01] MEDS: PHENobarbital TAB(*) 30 MG PO SCH ×2 (08:16→20:56)
[2017-04-01] MEDS: Docusate CAP* 100 MG PO SCH ×2 (08:16→20:56)
[2017-04-01] MEDS: Gabapentin CAP(*) 300 MG PO SCH ×2 (08:16→20:54)
[2017-04-01] MEDS: CMCS: Nebivolol TAB (NF) 2.5 MG TAB PO SCH (08:16)
[2017-04-01] MEDS: amLODIPine TAB* 5 MG PO SCH (08:16)
[2017-04-01] MEDS: oxyCODONE/Acetamin 5/325 MG* TAB PO PRN ×2 (10:22→22:38)
--- NOTE | 2017-04-01 12:56 | PMRUTEAM ---
PMRU: Goals Current Status: Nursing: Current Status Skin Deviations [Right Hip] Incision Skin Deviation Description [ intact with clips and open to air Right Hip] Bladder Current Status voids/incontinent Bowel Current Status colace given Nutrition Current Status adequate Medication Current Status percocet for pain Physical Therapy: Current Status Bed Mobility Assistance Supervision,Min Assist Transfer Moblility Assistance Supervision Transfer/Bed Mobility Tay Walker Recommended Devices Ambulation Assistance Supervision Ambulation Assistive Devices Tay Walker Number of Feet Patient 100 Ambulated Stairs Assistance Not Tested Occupational Therapy: Current Status Upper Body Dressing Ind with Adaptive Equip Lower Body Dressing Min Assist Lower Body Dressing Progress donning socks. Bathing Min Assist Bathing Progress drying feet Toileting Contact Guard Assist Toileting Progress Occassional toilet hygiene Toilet Transfer Contact Guard Assist Shower Transfer Contact Guard Assist Eating Independent Rec Therapy: Current Status Summary of Assessment and RT assessment completed. Patient was euthymic and Clinical Impression pleasant and interacted positively with this specification writer. Patient was interested in receiving playing cards which were provided. Treatment Goals Patient will engage in leisure activities while on the unit. Treatment Plan Provide and encourage involvement in leisure activities. Social Work: Current Status Discharge Plan return home with home care services and family support Potential for Family Training TBD Anticipated Discharge Home Destination Discharge With home care svs and family support Nutrition: Current Status Monitoring Admitted to PM[facility] s/p right total hip replacement. Pt eating fairly well over the past 3 days; meal completions are 50-100% meals. Last bowel movement 03/30. Labs from 03/28 reviewed. Per RDN assessment on [facility] pt reported difficulty chewing/swallowing however declined the need for modified textures and stated to RDN she can handle regular textures and just chews/swallows very slowly. Coumadin - vit K education provided 03/26 on [facility]. [ End ] Goals: Physical Therapy: Initial Goals Bed Mobility Assistance Independent Transfer Mobility Assistance Independent Transfer/Bed Mobility Tay Walker Recommended Devices Ambulation Independent Ambulation Recommended Devices Small Base Quad Cane Ambulation Distance 150 Home Exercise Program Independent Assistance Physical Therapy: Updated Goals Bed Mobility Assistance Independent Transfer Mobility Assistance Independent Transfer/Bed Mobility Tay Walker Recommended Devices Ambulation Assistance Independent Ambulation Assistive Devices Tay Walker Ambulation Distance (ft) 150 Home Exercise Program Independent Assistance Occupational Therapy: Initial Goals Goals to be Completed in (Days 10-14 ) Upper Body Bathing Routine Independent Lower Body Bathing Routine Modified Independent with Lower Body Bathing Assistive Long-handled sponge prn Devices Comment Upper Body Dressing Routine Independent Lower Body Dressing Routine Modified Independent with Toilet Hygeine and Clothing Modified Independent with Management Routine Toilet Transfer Routine Modified Independent with Step-In Shower Transfer Minimal Contact Assist Routine Step-In Shower Assistive Pt receives Jeanie for showers/shower transfer at Devices baseline Functional Transfers for ADL Modified Independent with Grooming Routine Modified Independent with Feeding Routine Independent Light Housekeeping Tasks Modified Independent with Nursing: Goals Bladder Goal independent Bowel Goal independent Nutrition Goal 100% of all meals eaten Medication Goal independent Nutrition: Goals Intervention Goals 1. Intake will remain adequate to meet needs for post-op healing while promoting gradual wt loss to goal 145# (pt goal weight) 2. Pt will tolerate regular texture without difficulty chewing/swallowing 3. Bowel regularity without diarrhea or constipation 4. Understanding of consistent intake of Vitamin K while on Coumadin Social Work: Goals Discharge Plan return home with home care services and family support Potential for Family Training TBD Anticipated Discharge Home Destination Discharge With home care svs and family support Care Plan: Care Plan ADL's - Improve/Maintain Start: 03/27/17 15:20 Freq: DAILY Status: Active Target: Activity Type Activity Date Activity User E-Sign Co-Sign Detail Recorded Client Recorded Date Recorded By Document 03/28/17 10:42 [id number] 03/28/17 10:42 [id number] 03/28/17 10:42 PMRU Outcome: ADL's/ADL Transfers Orders/Interventions Occupational Therapy Evaluation & Treatment Communication Tool in Patient Room Device No Patient to receive OT 5x/wk for 60-120 Therex min/day Self Care Management Group Therapy UE/LE ADL's with Assist Yes ADL Transfers with Assist Yes Toileting: Transfers,Clothing Management Yes ,Hygeine w/Assist Light Kitchen/Laundry w/Assist Yes Progression Toward Outcome/Goals Progressing Outcome/Goals Met Pt progressing towards goals in order to return home to live alone with [employer]LE[employer] COORDINATOR 3 x /week for bathing ADls and some IADLs. Communication-Improve/Maintain Start: 03/27/17 19:06 Freq: DAILY Status: Active Target: Activity Type Activity Date Activity User E-Sign Co-Sign Detail Recorded Client Recorded Date Recorded By Document 04/01/17 10:55 [id number] 04/01/17 10:56 [id number] 04/01/17 10:55 PMRU Outcome: Communication/Cognitive Status Outcome/Goals Makes Needs Known Effectively Progression Toward Outcomes/Goals Progressing Coping/Psych-Improve/Maintain Start: 03/27/17 19:06 Freq: DAILY Status: Active Target: Activity Type Activity Date Activity User E-Sign Co-Sign Detail Recorded Client Recorded Date Recorded By Document 04/01/17 10:55 [id number] 04/01/17 10:56 [id number] 04/01/17 10:55 PMRU Outcome: Coping/Psychosocial Coping Outcome/Goals Verbalization of Acceptance of Rehab Admit Verbalization of Sense of Control Over Health Status Utilization of Appropriate Problem Solving Techniques Willingness to Participate in Treatment Plan and Basic Needs Utilization of Available Support Systems Absence of Destructive Behavior to Self/Others Psychosocial Outcome/Goals Maintain/ Improve Emotional Health Demonstrates Knowledge of Healthy Coping Mechanisms Available Cooperate/ Participate in Plan Progression Toward Outcome/Goals - Progressing Coping Progression Toward Outcome/Goals - Progressing Psychosocial DVT Prophylaxis- Improve/Maintain Start: 03/27/17 19:06 Freq: DAILY Status: Active Target: Activity Type Activity Date Activity User E-Sign Co-Sign Detail Recorded Client Recorded Date Recorded By Document 04/01/17 10:55 [id number] 04/01/17 10:56 [id number] 04/01/17 10:55 PMRU Outcome: DVT Prophylaxis Outcome/Goals Remains Free of DVT Complies with DVT Prophylaxis /Treatment Demonstrates Knowledge of DVT Prevention/ Treatment TEDS Stockings on Every AM, Off at HS Progression Toward Outcome/Goals Progressing Outcome/Goals Met Complies with DVT Prophylaxis /Treatment TEDS Stockings on Every AM, Off at HS Discharge Planning - Improve/Maintain Start: 03/27/17 19:06 Freq: DAILY Status: Active Target: Activity Type Activity Date Activity User E-Sign Co-Sign Detail Recorded Client Recorded Date Recorded By Document 03/31/17 20:35 [id number] [id number] 03/31/17 20:36 [id number] 03/31/17 20:35 PMRU Outcome: Discharge Planning Update Patient Family No Outcome/Goals Demonstrates Understanding of Discharge Plan Progression Toward Outcome/Goals Progressing Education-Improve/Maintain Start: 03/27/17 19:06 Freq: DAILY Status: Active Target: Activity Type Activity Date Activity User E-Sign Co-Sign Detail Recorded Client Recorded Date Recorded By Document 04/01/17 10:55 [id number] 04/01/17 10:56 [id number] 04/01/17 10:55 PMRU Outcome: Education Outcome/Goals Demonstrate/ Verbalize Understanding of Written Discharge Instructions Encourage Questions Progression Toward Outcome/Goals Progressing /GI-Improve/Maintain Start: 03/27/17 19:06 Freq: DAILY Status: Active Target: Activity Type Activity Date Activity User E-Sign Co-Sign Detail Recorded Client Recorded Date Recorded By Document 04/01/17 10:55 [id number] 04/01/17 10:56 [id number] 04/01/17 10:55 PMRU Outcome: Genitourinary/ Gastrointestinal Genitourinary- Outcome/Goals Maintain/ Achieve Urinary Continence Remain Free of Hospital- Acquired UTI Gastrointestinal-Outcome/Goals Maintain/ Achieve Bowel Regularity in Accordance with Pt's Baseline Prevent Constipation Laxatives as Ordered Progression Toward Outcome/Goals - Progressing Progression Toward Outcome/Goals - GI Progressing Mobility- Improve/Maintain Start: 03/27/17 09:58 Freq: DAILY Status: Active Target: Activity Type Activity Date Activity User E-Sign Co-Sign Detail Recorded Client Recorded Date Recorded By Document 03/27/17 09:58 [id number] [email or web address] 03/27/17 09:59 [id number] 03/27/17 09:58 PMRU Outcome: Mobility Physical Therapy Evaluation and Yes Treatment Activity OOB with Assistance Yes WBAT Yes Device Yes Assistance Yes Patient to be seen 5x/wk for 60-120 min/ Therex day for: Mobility Training Gait Training Balance Outcome/Goals Maintain/ Achieve Baseline Mobility Status Improve Mobility Status Demonstrates Proper Use of Assistive Devices Free from Complications of Immobility Bed Mobility Yes: Independent Transfers Yes: Modified Independent with cane Gait x ft Yes: Modified Independent 150 ' with cane W/C Mobility x ft No Up/Down Stairs No With HEP Yes: Independent Nutrition/Swallowing- Improve/Maintain Start: 03/27/17 19:06 Freq: DAILY Status: Active Target: Activity Type Activity Date Activity User E-Sign Co-Sign Detail Recorded Client Recorded Date Recorded By Document 03/31/17 20:10 [id number] 03/31/17 20:10 [id number] 03/31/17 20:10 PMRU Outcome: Nutrition/Swallowing Outcome/Goals Demonstrates Adequate Hydration/ Prevents Dehydration Maintain/ Improve Nutritional Status Progression Toward Outcome/Goals Progressing Pain/Comfort- Improve/Maintain Start: 03/27/17 19:06 Freq: DAILY Status: Active Target: Activity Type Activity Date Activity User E-Sign Co-Sign Detail Recorded Client Recorded Date Recorded By Document 04/01/17 10:55 [id number] 04/01/17 10:56 [id number] 04/01/17 10:55 PMRU Outcome: Pain/Comfort Outcome/Goals Demonstrates Knowledge and Use of Available Comfort Measures Achieves Acceptable Comfort/Pain Level as Determined by Patient/Condit Maintain Comfort Level Allowing Patient to Fully Participate in Rehab Progression Toward Outcome/Goals Progressing Outcome/Goals Met Comment Pt denies pain Safety- Improve/Maintain Start: 03/27/17 19:06 Freq: DAILY Status: Active Target: Activity Type Activity Date Activity User E-Sign Co-Sign Detail Recorded Client Recorded Date Recorded By Document 04/01/17 10:55 [id number] 04/01/17 10:56 [id number] 04/01/17 10:55 PMRU Outcome: Safety Outcome/Goals Remain Free of Injury or Harm Cooperates with Safety Measures for Least Restrictive Environment Prevent Falls/ Injury Equipment Needed Progression Toward Outcome/Goals Progressing Skin- Improve/Maintain Start: 03/27/17 19:06 Freq: DAILY Status: Active Target: Activity Type Activity Date Activity User E-Sign Co-Sign Detail Recorded Client Recorded Date Recorded By Document 04/01/17 10:55 [id number] 04/01/17 10:56 [id number] 04/01/17 10:55 PMRU Outcome: Skin Skin Risk Level Medium Skin Orders Dressing Change Heels Off Bed Turn/Position q2hr While in Bed Outcome/Goals Maintain/ Improve Skin Intergrity Free from Decubitus Surgical Incisions Healing Progression Toward Outcome/Goals Progressing Medicine Note: Length of Stay: 3 days Anticipated Discharge Destination: Home Tentative Discharge Date: 04/04/17 Discharged to: Home
[2017-04-01] MEDS: Warfarin TAB(*) 5 MG PO SCH (17:11)
[2017-04-02] MEDS: Docusate CAP* 100 MG PO SCH ×2 (07:36→20:37)
[2017-04-02] MEDS: Aspirin EC Low Dose* 81 MG TAB.EC PO SCH (07:36)
[2017-04-02] MEDS: PHENobarbital TAB(*) 30 MG PO SCH ×2 (07:36→20:37)
[2017-04-02] MEDS: amLODIPine TAB* 5 MG PO SCH (07:36)
[2017-04-02] MEDS: Hydroxychloroquine TAB* 200 MG PO SCH ×2 (07:37→17:09)
[2017-04-02] MEDS: Gabapentin CAP(*) 300 MG PO SCH ×2 (07:37→20:36)
[2017-04-02] MEDS: CMCS: Nebivolol TAB (NF) 2.5 MG TAB PO SCH (07:37)
[2017-04-02] MEDS: oxyCODONE/Acetamin 5/325 MG* TAB PO PRN ×2 (13:54→21:29)
[2017-04-02] MEDS: Warfarin TAB(*) 5 MG PO SCH (17:09)
[2017-04-03] MEDS: Gabapentin CAP(*) 300 MG PO SCH ×2 (08:18→21:03)
[2017-04-03] MEDS: CMCS: Nebivolol TAB (NF) 2.5 MG TAB PO SCH (08:18)
[2017-04-03] MEDS: PHENobarbital TAB(*) 30 MG PO SCH ×2 (08:18→21:02)
[2017-04-03] MEDS: Hydroxychloroquine TAB* 200 MG PO SCH ×2 (08:18→18:10)
[2017-04-03] MEDS: amLODIPine TAB* 5 MG PO SCH (08:19)
[2017-04-03] MEDS: Aspirin EC Low Dose* 81 MG TAB.EC PO SCH (08:19)
[2017-04-03] MEDS: Docusate CAP* 100 MG PO SCH ×2 (08:19→21:03)
[2017-04-03] MEDS: oxyCODONE/Acetamin 5/325 MG* TAB PO PRN ×2 (09:15→19:22)
[2017-04-03] MEDS ORDERED: oxyCODONE/Acetamin 5/325 MG* TAB PO PRN (16:36)
[2017-04-03] MEDS: Warfarin TAB(*) 5 MG PO SCH (18:10)
[2017-04-04] MEDS: oxyCODONE/Acetamin 5/325 MG* TAB PO PRN ×2 (00:09→12:19)
[2017-04-04 06:56] VITALS: BP 109/73
[2017-04-04] MEDS: Aspirin EC Low Dose* 81 MG TAB.EC PO SCH (08:42)
[2017-04-04] MEDS: PHENobarbital TAB(*) 30 MG PO SCH (08:43)
[2017-04-04] MEDS: amLODIPine TAB* 5 MG PO SCH (08:43)
[2017-04-04] MEDS: Gabapentin CAP(*) 300 MG PO SCH (08:43)
[2017-04-04] MEDS: Hydroxychloroquine TAB* 200 MG PO SCH (08:43)
[2017-04-04] MEDS: CMCS: Nebivolol TAB (NF) 2.5 MG TAB PO SCH (08:43)
[2017-04-04] MEDS: Docusate CAP* 100 MG PO SCH (08:44)
[2017-04-04 08:47] LABS: Hematocrit 28 % (35-47); Hemoglobin 9.3 g/dl (12.0-16.0); Mean Corpuscular HGB Conc 33 g/dl (31-36); Mean Corpuscular Hemoglobin 28 pg (27-31); Mean Corpuscular Volume 86 fL (80-97); Mean Platelet Volume 7 um3 (7.4-10.4); Red Cell Distribution Width 15 % (10.5-15); White Blood Count 4.1 10^3/ul (3.5-10.8)
[2017-04-04 09:32] LABS: Albumin 3.2 g/dL (3.2-5.2); BUN/Creatinine Ratio 15.7 (8-20); Calcium 8.3 mg/dL (8.6-10.3); EGFR African American 67.5 (>60); EGFR Non-African American 52.5 (>60); Globulin 3.1 g/dL (2-4); Potassium 4.5 mmol/L (3.5-5.0); Total Bilirubin 0.3 mg/dL (0.2-1.0); Total Protein 6.3 g/dL (6.4-8.9)
[2017-04-04] MEDS ORDERED: Warfarin TAB(*) 6 MG PO SCH (10:53)
--- NOTE | 2017-04-05 04:04 | DS ---
CC: Nabila Barrera MD * DISCHARGE SUMMARY: DATE OF ADMISSION: 03/27/17 DATE OF DISCHARGE: 04/04/17 DISCHARGE DIAGNOSES: 1. Right total hip replacement. 2. Systemic lupus erythematosus. 3. Seizure disorder. 4. Chronic kidney disease. 5. 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 6. Hiatal hernia. 7. Thyroidectomy. 8. History of left total hip replacement. HISTORY OF PRESENT ILLNESS AND HOSPITAL COURSE: For complete history of the events leading up to her rehab stay, please see the history and physical dictated by me on 03/27/17. While on the rehab unit, Neetu remained medically stable. Her wound remained clean and dry. She did not have any seizure activity. She was maintained on phenobarbital for seizure prophylaxis. She was maintained on Coumadin for DVT prophylaxis. She otherwise was medically stable. She was seen by both physical and occupational therapy and made good gains with both disciplines. With physical therapy at the time of admission, the patient required mod assist of 2 people to do a transfer. She was not able to ambulate on admission. With occupational therapy at the time of admission, the patient required total assistance for lower body dressing, minimal amount of assistance for upper body dressing. She was on total assistance for toileting and toilet transfers. By the time of discharge, the patient was independent in transfers, independent ambulating with a norma walker. She could walk 50 feet. She was independent with her activities of daily living, although did need assistance for putting on socks and shoes. She was independent in toileting and toilet transfers. She was discharged home to her apartment at [facility] on 04/04/17. DISCHARGE DIET: Regular. DISCHARGE MEDICATIONS: Included: 1. Phenobarbital 60 mg twice a day. 2. Plaquenil 200 mg twice a day. 3. Neurontin 600 mg twice a day. 4. Baclofen 20 mg twice daily as needed. 5. Bystolic 5 mg daily. 6. Coumadin 6 mg daily. 7. Norvasc 5 mg daily. 8. Percocet 1-2 tablets every 4 hours as needed. SERVICES AFTER DISCHARGE: Through visiting nurse services. She will have home nursing, home physical therapy, and a home health aide. She also has home health aide 3 days a week through caregiver's home care. FOLLOWUP: Follow up with Dr. Eleazar Canseco as well as with her primary care doctor , Dr. Barrera. [id number]/[id number] #: [id number] MUSHTAQ
== END 2017-04-04 13:45 | disposition home health service (06) | DRG 560 ==
LOC: PMRU 09:46
PROVIDERS: ADMIT Physical Medicine & Rehabilitation; ATTEND Physical Medicine & Rehabilitation
PROC: F07Z5ZZ Bed Mobility Treatment (ICD-10-PCS; principal; 2017-03-27)
PROC: F07Z9ZZ Gait Training/Functional Ambulation Treatment (ICD-10-PCS; 2017-03-27)
PROC: F07Z8ZZ Transfer Training Treatment (ICD-10-PCS; 2017-03-27)
PROC: F08Z0ZZ Bathing/Showering Techniques Treatment (ICD-10-PCS; 2017-03-27)
PROC: F08Z1ZZ Dressing Techniques Treatment (ICD-10-PCS; 2017-03-27)
PROC: F08Z3ZZ Feeding/Eating Treatment (ICD-10-PCS; 2017-03-27)
DX: Z47.1 Aftercare following joint replacement surgery (principal); I69.351 Hemiplegia and hemiparesis following cerebral infarction affecting right dominant side; M32.9 Systemic lupus erythematosus, unspecified; D69.6 Thrombocytopenia, unspecified; Z96.641 Presence of right artificial hip joint; G40.909 Epilepsy, unspecified, not intractable, without status epilepticus; I12.9 Hypertensive chronic kidney disease with stage 1 through stage 4 chronic kidney disease, or unspecified chronic kidney disease; N18.3 Chronic kidney disease, stage 3 (moderate); K44.9 Diaphragmatic hernia without obstruction or gangrene; Z96.642 Presence of left artificial hip joint; Z79.01 Long term (current) use of anticoagulants; Z79.82 Long term (current) use of aspirin; Z79.52 Long term (current) use of systemic steroids; Z79.899 Other long term (current) drug therapy; Z88.2 Allergy status to sulfonamides; Z88.8 Allergy status to other drugs, medicaments and biological substances; I69.322 Dysarthria following cerebral infarction
CPT/HCPCS: 36415; 80053; 85025; 85610; A9270-GY

== ENCOUNTER 2017-04-04 22:10 | Emergency (ER) | payer MEDICARE, MEDICAID ==
[2017-04-04 22:27] VITALS: BP 126/79
--- NOTE | 2017-04-05 07:48 | RAD ---
HISTORY: Right hip pain COMPARISONS: March 25, 2017 VIEWS: 3, Frontal view of the pelvis with frontal and frog-leg views of the right hip FINDINGS: BONE DENSITY: Normal. BONES: The patient is status post bilateral hip arthroplasty. On the right, the position of the fixation screws of the acetabular portion of the prosthesis are stable. There is no appreciable hardware failure or osteolysis. JOINTS: The patient is status post bilateral hip arthroplasty ALIGNMENT: There is no dislocation. SOFT TISSUES: Unremarkable. OTHER FINDINGS: None. IMPRESSION: STATUS POST BILATERAL HIP ARTHROPLASTY
--- NOTE | 2017-04-22 19:09 | ED ---
Lower Extremity - HPI Summary HPI Summary: Pt here w/ Rt hip pain. She was d/c'd from [facility] earlier today s/p Rt hip replacement on 03/25/3017 and rehab deeming her competent for independence at home. Surgery went well and pt has been weight bearing w/o difficulty. Reports she lives alone but mom lives upstairs from her. She called her mom sudhakar when she got stuck on toilet seat - was able to sit down but unable to stand after. With prolonged sitting, Rt hip began to hurt and worsened the longer she was on toilet. Admits she does not have a raised seat which made it difficult to stand after sitting. Denies numbness, tingling, weakness into LE and pain improved w/ standing upon removal from toilet when EMS arrived (mom called EMS for her). She denies any other pain, injury or illness - simply had trouble getting off of toilet after sitting to urinate. Needs raised seat. - History of Current Complaint Chief Complaint: EDHipPelvisInjury Stated Complaint: RT HIP PAIN Time Seen by Provider: 04/04/17 22:34 Hx Obtained From: Patient Pain Intensity: 4 - Allergies/Home Medications Allergies/Adverse Reactions: Allergies Allergy/AdvReac Type Severity Reaction Status Date / Time Fentanyl Allergy Severe rash, Verified 03/25/17 06:29 hives, itchy Sulfa Antibiotics Allergy Severe Facial Verified 03/25/17 06:29 Redness/Flushing Nitrofurantoin AdvReac Unknown Verified 03/25/17 06:29 Reaction Details PMH/Surg Hx/FS Hx/Imm Hx Previously Healthy: Yes Endocrine/Hematology History: Reports: Hx Systemic Lupus Erythematosus, Hx Thyroid Disease - RIGHT LOBE THYROID IS ENLARGED, Denies: Hx Anticoagulant Therapy, Hx Bone Marrow Disease, Hx Diabetes, Hx Sickle Cell Disease, Hx Anemia Cardiovascular History: Reports: Hx Hypertension Denies: Hx Congestive Heart Failure, Hx Pacemaker/ICD, Other Cardiovascular Problems/Disorders Respiratory History: Denies: Hx Asthma, Hx Pulmonary Embolism, Hx Sleep Apnea, Other Respiratory Problems/Disorders GI History: Reports: Hx Gastroesophageal Reflux Disease - on meds, Hx Hiatal Hernia Denies: Hx Jaundice History: Reports: Hx Kidney Infection, Other Problems/Disorders - UTI, vag abscess. SEES DR. GRAF ABOUT KIDNEYS Denies: Hx Renal Disease Musculoskeletal History: Reports: Hx Arthritis - SHOULDERS, Hx Back Problems - pain, Other Musculoskeletal History - osteopenia, r hip pain x 1 year, l hip hemiarthroplasty Denies: Hx Tendonitis Sensory History: Reports: Hx Deafness - [place] in right ear, Hx Hearing Problem - right hear clogged Denies: Hx Cataracts, Hx Contacts or Glasses, Hx Glaucoma, Hx Hearing Aid Opthamlomology History: Denies: Hx Cataracts, Hx Contacts or Glasses, Hx Glaucoma Neurological History: Reports: Hx Migraine - ~1 MONTH AGO, HAPPENS OCCASIONALLY , Hx Seizures, Other Neuro Impairments/Disorders - cva lupus migranes; 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 Denies: Hx Nerve Disease Comment Only: Hx Spinal Cord Injury - "Many years ago" Psychiatric History: Denies: Hx Anxiety, Hx Depression, Hx Panic Disorder - Cancer History Hx Chemotherapy: No Hx Radiation Therapy: No - Surgical History Surgery Procedure, Year, and Place: BILATERAL hip replacement, hysterectomy, one ovary removed; VAGINAL ABSCESS I&D Hx Anesthesia Reactions: No - Immunization History Date of Tetanus Vaccine: unk Date of Influenza Vaccine: unk Infectious Disease History: No Infectious Disease History: Reports: Hx of Known/Suspected MRSA - patient does not remember, Hx Shingles Denies: Hx Hepatitis, Traveled Outside the [place] in Last 30 Days - Family History Known Family History: Positive: Unknown, Cardiac Disease, Hypertension, Diabetes - Social History Alcohol Use: None Hx Substance Use: No Substance Use Type: Reports: None Hx Tobacco Use: No Smoking Status (MU): Never Smoked Tobacco Amount Used/How Often: only smoked for weeks Have You Smoked in the Last Year: No Review of Systems Constitutional: Negative Negative: Fever, Chills, Fatigue Negative: Chest Pain Negative: Shortness Of Breath Gastrointestinal: Negative Negative: Abdominal Pain, Vomiting, Diarrhea, Nausea Negative: burning, dysuria, discharge, frequency, flank pain Musculoskeletal: Other - see HPI Skin: Negative Negative: Rash, Bruising Neurological: Negative Negative: Weakness, Paresthesia, Numbness Psychological: Normal All Other Systems Reviewed And Are Negative: Yes Physical Exam Triage Information Reviewed: Yes Vital Signs On Initial Exam: Initial Vitals Temp Pulse Resp BP Pulse Ox 100.0 F 88 20 126/79 100 04/04/17 22:25 04/04/17 22:25 04/04/17 22:25 04/04/17 22:25 04/04/17 22:25 Vital Signs Reviewed: Yes Appearance: Positive: Well-Appearing, No Pain Distress - appears comfortable lying supine on strecther, Well-Nourished Skin: Positive: Warm, Dry Head/Face: Positive: Normal Head/Face Inspection ENT: Positive: Hearing grossly normal Respiratory/Lung Sounds: Positive: Breath Sounds Present Cardiovascular: Positive: Normal, Pulses are Symmetrical in both Upper and Lower Extremities Abdomen Description: Positive: Nontender, Soft Bowel Sounds: Positive: Present Musculoskeletal: Positive: Strength/ROM Intact, Pain @ - Rt hip w/ mild TTP - no brandie external rotation or leg length discrepancy Neurological: Positive: Normal, Sensory/Motor Intact, Alert, Oriented to Person Place, Time, CN Intact II-III Psychiatric: Positive: Normal Diagnostics - Vital Signs Vital Signs Temp Pulse Resp BP Pulse Ox 04/04/17 22:33 100.0 F 88 20 126/79 100 04/04/17 22:25 100.0 F 88 20 126/79 100 - Laboratory Lab Statement: Any lab studies that have been ordered have been reviewed, and results considered in the medical decision making process. Lower Extremity Course/Dx - Course Course Of Treatment: Pt here w/ Rt hip pain s/p Rt hip replacement on 03/25/2017 and d/c'd home today from [facility]. Her XR tonight appears same as post op and she does not have any new deficits as a result of episode tonight. Spoke w/ Dr. Rivera who agrees she may go home w/ raised comode (provided w/ temporary equipment from [facility]) and f/u. He will order her a home unit and she can return [facility] once this arrives. Reviewed danger s/sx of when pt should return to ED. She agrees w/ plan. - Diagnoses Provider Diagnoses: Acute right hip pain Discharge - Discharge Plan Condition: Stable Disposition: HOME Patient Education Materials: Hip Pain (ED) Referrals: Nabila Graf MD [Primary Care Provider] - Additional Instructions: You developed Right hip pain after stuck on toilet, seated, for 1 hour earlier tonight. You reported improvement of pain upon standing. It was brought to our attention that you need a raised toilet seat at home to successfully toilet with limited difficulty. A temporary raised commode has been provided for you tonight. Your staff in the [facility] will order you your own this coming week. Please use this when toileting to prevent hyper-flexion of hip which may trigger pain as well as damage to your replacement. Call Friday for follow-up on raised commode order. *If pain returns and/or you develop numbness, tingling, or new onset weakness in this lower extremity, return to ED
== END 2017-04-05 01:51 | disposition home or self-care (01) ==
LOC: ED 22:10
DX: M25.551 Pain in right hip (principal); Z96.641 Presence of right artificial hip joint
CPT/HCPCS: 99281

== ENCOUNTER 2017-07-11 16:45 | Inpatient (IN) | payer MEDICARE, MEDICAID ==
[2017-07-11] MEDS ORDERED: NS 0.9% 1000 ML* 1,000 ML IV ONE (16:46)
--- NOTE | 2017-07-11 17:09 | RAD ---
INDICATION: Possible CVA COMPARISON: CT brain December 04, 2016 TECHNIQUE: Noncontrast axial source images were acquired from the skull base to the vertex. FINDINGS: Ventricles/sulci: There is cortical atrophy with compensatory dilatation of the CSF spaces. There is a tiny low-density focus in the posterior horn left lateral ventricle, unchanged this may represent fat. Brain parenchyma: There is an old left MCA distribution infarct with resultant encephalomalacia.. Intracranial hemorrhage:None. Extra-axial spaces: There are no abnormal extra axial fluid collections or evidence of extra-axial mass. Calvarium: There is no calvarial fracture or other calvarial abnormality. Scalp: There is no evidence of scalp or extracalvarial soft tissue abnormality. Paranasal sinuses/mastoid: The paranasal sinuses and mastoid air cells are clear. Other: None. IMPRESSION: Old left MCA distribution infarct. No acute findings Findings called to ED at 1705 hours
--- NOTE | 2017-07-11 17:31 | RAD ---
INDICATION: Code de la cruz COMPARISON: Chest x-ray March 17, 2017 TECHNIQUE: An AP portable view obtained at 1721 hours is submitted. FINDINGS: Bones/Soft Tissues: There are no acute bony findings. Cardiomediastinal: The cardiomediastinal silhouette is normal. Lungs: There are no infiltrates. Pleura: There are no pleural effusions. Other: There is a hiatal hernia IMPRESSION: NO ACTIVE DISEASE.
[2017-07-11 18:35] LABS: Hematocrit 30 % (35-47); Hemoglobin 9.7 g/dl (12.0-16.0); Mean Corpuscular HGB Conc 32 g/dl (31-36); Mean Corpuscular Hemoglobin 27 pg (27-31); Mean Corpuscular Volume 83 fL (80-97); Mean Platelet Volume 8 um3 (7.4-10.4); Red Cell Distribution Width 14 % (10.5-15); White Blood Count 9.8 10^3/ul (3.5-10.8)
[2017-07-11 18:47] LABS: Albumin 3.5 g/dL (3.2-5.2); BUN/Creatinine Ratio 11.5 (8-20); Calcium 9.3 mg/dL (8.6-10.3); EGFR African American 36.8 (>60); EGFR Non-African American 28.6 (>60); Globulin 4.6 g/dL (2-4); HDL Cholesterol 47.1 mg/dL; Potassium 4.4 mmol/L (3.5-5.0); Total Bilirubin 0.3 mg/dL (0.2-1.0); Total Protein 8.1 g/dL (6.4-8.9)
[2017-07-11 19:11] LABS: Urine Bacteria 1+ (Absent); Urine Bilirubin Negative (Negative); Urine Glucose Negative (Negative); Urine Nitrite Negative (Negative)
--- NOTE | 2017-07-11 20:08 | ED ---
Shyanne Emerson Thomas, scribed for Abdirizak Granados MD on 07/11/17 at 1724 . Neurological HPI - HPI Summary HPI Summary: The patient is a 57 y/o F with a Hx of CVA who presents to the ED c/o stroke like symptoms. She was last known well. She has residual deficits from her prior CVA with motor difficulties on the right side of her body. She is tearful during examination and does not provide a coherent story. Per nursing, the patient began to have a worsening of her chronic R arm pain three days ago. In the ED the patient rates the pain 7/10. The patient normally gets around with a cane, and per nursing, the patients friend was concerned because the patient had a near-fall today. This friend called an ambulance and encouraged a visit to the ED. The patient is alert and oriented - History of Current Complaint Chief Complaint: EDNeurologicalDeficit Stated Complaint: STROKE LIKE SYMPTOMS Time Seen by Provider: 07/11/17 16:46 Hx Obtained From: Patient Onset/Duration: Started days ago - onset three days ago, Still Present Timing: Constant Current Severity: Moderate Pain Intensity: 7 Pain Scale Used: 0-10 Numeric Character: Motor Weakness - in right arm Aggravating: Nothing Alleviating: Nothing Associated Signs and Symptoms: Positive: Unsteady Gait - with near-fall - Additional Pertinent History Primary Care Physician: FLORA - Allergy/Home Medications Allergies/Adverse Reactions: Allergies Allergy/AdvReac Type Severity Reaction Status Date / Time Fentanyl Allergy Severe rash, Verified 03/25/17 06:29 hives, itchy Sulfa Antibiotics Allergy Severe Facial Verified 03/25/17 06:29 Redness/Flushing Nitrofurantoin AdvReac Unknown Verified 03/25/17 06:29 Reaction Details PMH/Surg Hx/FS Hx/Imm Hx Previously Healthy: No Endocrine/Hematology History: Reports: Hx Systemic Lupus Erythematosus, Hx Thyroid Disease - RIGHT LOBE THYROID IS ENLARGED, Denies: Hx Anticoagulant Therapy, Hx Bone Marrow Disease, Hx Diabetes, Hx Sickle Cell Disease, Hx Anemia Cardiovascular History: Reports: Hx Hypertension Denies: Hx Congestive Heart Failure, Hx Pacemaker/ICD, Other Cardiovascular Problems/Disorders Respiratory History: Denies: Hx Asthma, Hx Pulmonary Embolism, Hx Sleep Apnea, Other Respiratory Problems/Disorders GI History: Reports: Hx Gastroesophageal Reflux Disease - on meds, Hx Hiatal Hernia Denies: Hx Jaundice History: Reports: Hx Kidney Infection, Other Problems/Disorders - UTI, vag abscess. SEES DR. GRAF ABOUT KIDNEYS Denies: Hx Renal Disease Musculoskeletal History: Reports: Hx Arthritis - SHOULDERS, Hx Back Problems - pain, Other Musculoskeletal History - osteopenia, r hip pain x 1 year, l hip hemiarthroplasty Denies: Hx Tendonitis Sensory History: Reports: Hx Deafness - [place] [employer] in right ear, Hx Hearing Problem - right hear clogged Denies: Hx Cataracts, Hx Contacts or Glasses, Hx Glaucoma, Hx Hearing Aid Opthamlomology History: Denies: Hx Cataracts, Hx Contacts or Glasses, Hx Glaucoma Neurological History: Reports: Hx Migraine - ~1 MONTH AGO, HAPPENS OCCASIONALLY , Hx Seizures, Other Neuro Impairments/Disorders - cva lupus migranes; 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 Denies: Hx Nerve Disease Comment Only: Hx Spinal Cord Injury - "Many years ago" Psychiatric History: Denies: Hx Anxiety, Hx Depression, Hx Panic Disorder - Cancer History Hx Chemotherapy: No Hx Radiation Therapy: No - Surgical History Surgery Procedure, Year, and Place: BILATERAL hip replacement, hysterectomy, one ovary removed; VAGINAL ABSCESS I&D Hx Anesthesia Reactions: No - Immunization History Date of Tetanus Vaccine: unk Date of Influenza Vaccine: unk Infectious Disease History: Reports: Hx of Known/Suspected MRSA - patient does not remember, Hx Shingles Denies: Hx Hepatitis, Traveled Outside the [place] in Last 30 Days - Family History Known Family History: Positive: Cardiac Disease, Hypertension, Diabetes - Social History Alcohol Use: None Hx Substance Use: No Substance Use Type: Reports: None Hx Tobacco Use: No Smoking Status (MU): Never Smoked Tobacco Amount Used/How Often: only smoked for weeks Have You Smoked in the Last Year: No Review of Systems Negative: Fever Positive: Other - POS: worsening R arm pain Neurological: Other - POS: changes to gait Positive: Weakness - to RUE (onset three days ago) All Other Systems Reviewed And Are Negative: Yes Physical Exam Triage Information Reviewed: Yes Vital Signs On Initial Exam: Temp 99.2, HR 96, RR 16, BP 138/87, SaO2 99 Vital Signs Reviewed: Yes Appearance: Positive: Well-Appearing, No Pain Distress Skin: Positive: Warm, Skin Color Reflects Adequate Perfusion, Dry Head/Face: Positive: Normal Head/Face Inspection Eyes: Positive: Normal ENT: Positive: Normal ENT inspection Neck: Positive: Supple, Nontender Respiratory/Lung Sounds: Positive: Clear to Auscultation, Breath Sounds Present Cardiovascular: Positive: RRR Abdomen Description: Positive: Nontender, Soft Bowel Sounds: Positive: Present Musculoskeletal: Positive: Normal Neurological: Positive: Normal Psychiatric: Positive: Normal, Affect/Mood Appropriate Diagnostics - Vital Signs Temp 99.2, HR 96, RR 16, BP 138/87, SaO2 99 - Laboratory Lab Results: Lab Results 07/11/17 07/11/17 07/11/17 Range/Units 18:10 18:10 18:10 WBC 9.8 (3.5-10.8) 10^3/ul RBC 3.60 L (4.0-5.4) 10^6/ul Hgb 9.7 L (12.0-16.0) g/dl Hct 30 L (35-47) % MCV 83 (80-97) fL MCH 27 (27-31) pg MCHC 32 (31-36) g/dl RDW 14 (10.5-15) % Plt Count 184 (150-450) 10^3/ul MPV 8 (7.4-10.4) um3 Neut % (Auto) 80.4 (38-83) % Lymph % (Auto) 8.5 L (25-47) % Carroll % (Auto) 10.6 H (1-9) % Eos % (Auto) 0.3 (0-6) % Baso % (Auto) 0.2 (0-2) % Absolute Neuts (auto) 7.9 H (1.5-7.7) 10^3/ul Absolute Lymphs (auto) 0.8 L (1.0-4.8) 10^3/ul Absolute Monos (auto) 1.0 H (0-0.8) 10^3/ul Absolute Eos (auto) 0 (0-0.6) 10^3/ul Absolute Basos (auto) 0 (0-0.2) 10^3/ul Absolute Nucleated RBC 0 10^3/ul Nucleated RBC % 0 INR (Anticoag Therapy) 0.97 (0.89-1.11) APTT 27.4 (26.0-36.3) seconds Sodium 131 L (133-145) mmol/L Potassium 4.4 (3.5-5.0) mmol/L Chloride 98 L (101-111) mmol/L Carbon Dioxide 27 (22-32) mmol/L Anion Gap 6 (2-11) mmol/L BUN 21 (6-24) mg/dL Creatinine 1.82 H (0.51-0.95) mg/dL Est GFR ( Amer) 36.8 (>60) Est GFR (Non-Af Amer) 28.6 (>60) BUN/Creatinine Ratio 11.5 (8-20) Glucose 97 (70-100) mg/dL Lactic Acid (0.5-2.0) mmol/L Calcium 9.3 (8.6-10.3) mg/dL Total Bilirubin 0.30 (0.2-1.0) mg/dL AST 13 (13-39) U/L ALT 8 (7-52) U/L Alkaline Phosphatase 44 (34-104) U/L Troponin I 0.00 (<0.04) ng/mL Total Protein 8.1 (6.4-8.9) g/dL Albumin 3.5 (3.2-5.2) g/dL Globulin 4.6 H (2-4) g/dL Albumin/Globulin Ratio 0.8 L (1-3) Triglycerides 78 mg/dL Cholesterol 144 mg/dL LDL Cholesterol 81 mg/dL HDL Cholesterol 47.1 mg/dL Urine Color Urine Appearance Urine pH (5-9) Ur Specific [place] (1.010-1.030) Urine Protein (Negative) Urine Ketones (Negative) Urine Blood (Negative) Urine Nitrate (Negative) Urine Bilirubin (Negative) Urine Urobilinogen (Negative) Ur Leukocyte Esterase (Negative) Urine WBC (Auto) (Absent) Urine RBC (Auto) (Absent) Ur Squamous Epith Cells (Absent) Urine Bacteria (Absent) Urine Glucose (Negative) Blood Type Antibody Screen 07/11/17 07/11/17 07/11/17 Range/Units 18:10 18:10 18:45 WBC (3.5-10.8) 10^3/ul RBC (4.0-5.4) 10^6/ul Hgb (12.0-16.0) g/dl Hct (35-47) % MCV (80-97) fL MCH (27-31) pg MCHC (31-36) g/dl RDW (10.5-15) % Plt Count (150-450) 10^3/ul MPV (7.4-10.4) um3 Neut % (Auto) (38-83) % Lymph % (Auto) (25-47) % Carroll % (Auto) (1-9) % Eos % (Auto) (0-6) % Baso % (Auto) (0-2) % Absolute Neuts (auto) (1.5-7.7) 10^3/ul Absolute Lymphs (auto) (1.0-4.8) 10^3/ul Absolute Monos (auto) (0-0.8) 10^3/ul Absolute Eos (auto) (0-0.6) 10^3/ul Absolute Basos (auto) (0-0.2) 10^3/ul Absolute Nucleated RBC 10^3/ul Nucleated RBC % INR (Anticoag Therapy) (0.89-1.11) APTT (26.0-36.3) seconds Sodium (133-145) mmol/L Potassium (3.5-5.0) mmol/L Chloride (101-111) mmol/L Carbon Dioxide (22-32) mmol/L Anion Gap (2-11) mmol/L BUN (6-24) mg/dL Creatinine (0.51-0.95) mg/dL Est GFR ( Amer) (>60) Est GFR (Non-Af Amer) (>60) BUN/Creatinine Ratio (8-20) Glucose (70-100) mg/dL Lactic Acid 1.0 (0.5-2.0) mmol/L Calcium (8.6-10.3) mg/dL Total Bilirubin (0.2-1.0) mg/dL AST (13-39) U/L ALT (7-52) U/L Alkaline Phosphatase (34-104) U/L Troponin I (<0.04) ng/mL Total Protein (6.4-8.9) g/dL Albumin (3.2-5.2) g/dL Globulin (2-4) g/dL Albumin/Globulin Ratio (1-3) Triglycerides mg/dL Cholesterol mg/dL LDL Cholesterol mg/dL HDL Cholesterol mg/dL Urine Color Yellow Urine Appearance Cloudy Urine pH 8.0 (5-9) Ur Specific [place] 1.008 L (1.010-1.030) Urine Protein 2+(100 mg/dl) H (Negative) Urine Ketones Negative (Negative) Urine Blood Negative (Negative) Urine Nitrate Negative (Negative) Urine Bilirubin Negative (Negative) Urine Urobilinogen Negative (Negative) Ur Leukocyte Esterase 3+ H (Negative) Urine WBC (Auto) 3+(>20/hpf) H (Absent) Urine RBC (Auto) 2+(6-10/hpf) H (Absent) Ur Squamous Epith Cells Present H (Absent) Urine Bacteria 1+ H (Absent) Urine Glucose Negative (Negative) Blood Type O Negative Antibody Screen Negative Result Diagrams: 07/11/17 18:10 07/11/17 18:10 Lab Statement: Any lab studies that have been ordered have been reviewed, and results considered in the medical decision making process. - Radiology CXR Xray Interpretation: No Acute Changes - No active disease. ED physician has reviewed this report and agrees. Radiology Interpretation Completed By: Radiologist - CT CT Brain CT Interpretation: No Acute Changes - Old left MCA distribution infarct. No acute findings. ED physician has reviewed this report and agrees. CT Interpretation Completed By: Radiologist - EKG 17:13 Cardiac Rate: NL - 96 BPM EKG Interpretation: Sinus rhythm. Borderline tachycardia. Diffuse nonspecific changes. Course/Dx - Course Course Of Treatment: Ms. Rao was brought in as a possible stroke but it was very difficult to get a good history as she was quite upset. Clearly she has had an exacerbation of her chronic right sided symptoms and it seems as though pain is the main C/O. She is being W/U'd at this point and I expect we will find that she has a UTI or other aggravating factor that is pushing her over the edge. - Diagnoses Provider Diagnoses: Emotional upset Discharge - Discharge Plan Condition: Stable Disposition: OTHER Discharge Disposition Comment: Change of shift The documentation as recorded by the Shyanne agustin Thomas accurately reflects the service I personally performed and the decisions made by me, Abdirizak Granados MD.
[2017-07-11] MEDS ORDERED: oxyCODONE/Acetamin 5/325 MG* TAB PO ONE (20:40)
--- NOTE | 2017-07-11 21:23 | RAD ---
INDICATION: Renal failure COMPARISON: None TECHNIQUE: Longitudinal and transverse scans of the kidneys were obtained. FINDINGS: Kidneys: The kidneys are normal in size. There is increased echogenicity compatible with medical renal disease. No hydronephrosis or masses are seen.. The right kidney measures 10.8 x 4.3 x 5.3 cm and the left kidney 9.2 x 4.4 x 5.6 cm. Other: None IMPRESSION: ECHOGENIC KIDNEYS COMPATIBLE WITH MEDICAL RENAL DISEASE.
[2017-07-11] MEDS ORDERED: Al Hydrox/Mg Hydrox/Simet LIQ* 30 ML UDC PO PRN (21:52)
[2017-07-11] MEDS ORDERED: Ondansetron INJ* 2 MG/ML VIAL IV PRN (21:52)
[2017-07-11] MEDS ORDERED: Senna TAB PO PRN (21:52)
[2017-07-11] MEDS ORDERED: Docusate CAP* 100 MG PO PRN (21:52)
[2017-07-11] MEDS ORDERED: Baclofen TAB* 10 MG PO PRN (21:58)
[2017-07-11] MEDS ORDERED: Morphine INJ* 2 MG/ML 1 ML SYRINGE (TWO MG - NEW SYRINGE VERSION) IV PRN (22:00)
[2017-07-11 22:20] LABS: C Reactive Protein 229.38 mg/L (< 5.00); Magnesium 2.2 mg/dL (1.9-2.7)
[2017-07-11 22:44] LABS: Erythrocyte Sed Rate 120 mm/Hr (0-30)
[2017-07-12] MEDS: oxyCODONE/Acetamin 5/325 MG* TAB PO PRN ×3 (01:05→12:42)
[2017-07-12] MEDS: Heparin VIAL(*) 5000 UNITS/ML VIAL (FIVE THOUSAND) SUBCUT SCH ×4 (01:46→20:54)
--- NOTE | 2017-07-12 04:47 | HP ---
CC: Dr. Nabila Barrera HISTORY AND PHYSICAL: DATE OF ADMISSION: 07/11/17 TIME OF EVALUATION: 2200 PRIMARY CARE PHYSICIAN: Nabila Barrera MD CHIEF COMPLAINT: Right-sided pain. HISTORY OF PRESENT ILLNESS: This is a 57-year-old female with past medical history of lupus and left MCA infarct, who presents to the emergency room via EMS for right- sided worsening pain. The patient states for the past 3 days, she has had progressive worsening right-sided pain, initially would come and go , but this evening, the pain got persistently worse and it was the entire right side of her body. She states that now its just her right foot that has been jerking with some muscle spasms and feeling very tight. She denies any right- sided weakness. She does have baseline right-sided weakness from her stroke, but does not appear to be any worse than it is at her baseline. She denies any word-finding difficulties or any confusion. She has had a frontal headache off and on for the past 5 days. No changes in her vision. No chest pain, no shortness of breath, no fever, no URI symptoms, no urinary symptoms. She states that she has had some near falling episodes with weakness, but has been able to catch herself. She normally ambulates with a cane. She has had a decrease in appetite, but no significant changes in her weight. Otherwise, remaining review of systems is negative. In the emergency room, the patient had labs, imaging and was referred to the hospitalist service for further evaluation. PAST MEDICAL HISTORY: 1. History of low back pain. 2. Lupus. 3. Hypertension. 4. History of CVA. 5. Left MCA infarct with right-sided weakness. 6. History of MRSA. 7. History of thyroid nodule. 8. History of seizure disorder. 9. Status post thyroidectomy. 10. Status post total hip right arthroplasty. 11. GERD. 12. History of acute kidney injury. MEDICATIONS: 1. Baclofen 10 mg p.o. b.i.d. as needed for spasms. 2. Gabapentin 600 mg p.o. b.i.d. 3. Hydroxychloroquine 200 mg p.o. b.i.d. 4. Bystolic 5 mg p.o. daily. 5. Phenobarbital 64.8 mg p.o. b.i.d. 6. Oxycodone/acetaminophen 5/325 mg every 4 hours as needed for pain. 7. Amlodipine 5 mg daily. 8. Famotidine 20 mg p.o. daily. 9. Calcium carbonate 600 - vitamin D3 400 units tabs daily. ALLERGIES: 1. FENTANYL, rash, hives, itching. 2. SULFA ANTIBIOTICS, facial redness and flushing. 3. NITROFURANTOIN, unknown. FAMILY HISTORY: His sister with stroke. No history of lupus. SOCIAL HISTORY: The patient lives at home alone. She does ambulate with a cane. No history of smoking, alcohol, or illicit drug use. She is independent of her ADLs. Her son, Yayo, is her healthcare proxy. Code status is full code. REVIEW OF SYSTEMS: A 14-point review of systems as mentioned in the HPI. Pertinent positives and negatives as mentioned in the HPI; otherwise, negative. PHYSICAL EXAMINATION GENERAL: In no acute distress, resting comfortably with her son and her 2 jainism sisters at the bedside. VITAL SIGNS: Temp 99.2, pulse rate 97, respiratory rate 16, oxygen saturation 94% on room air, blood pressure 124/80. HEENT: Head normocephalic. Pupils are equal and reactive. Anicteric. NECK: Supple. No lymph adenopathy. No nuchal rigidity. Oropharynx: Mucous membranes moist. No erythema or exudate. RESPIRATORY: Diminished breath sounds. No wheeze, rhonchi, or rales. CARDIAC: Regular rate and rhythm. Soft systolic murmur heard throughout. ABDOMEN: Soft, nontender, nondistended. EXTREMITIES: No clubbing, cyanosis, or edema. +1 DPs, bilateral. NEUROLOGIC: Alert and oriented x3. The patient with right-sided weakness. No sensory deficits. Her right upper extremity is contracted with minimal 1/5 movement. Her right lower extremity has 1/5 movement as well. No obvious deformity, swelling, erythema, or wounds. DIAGNOSTIC STUDIES/LAB DATA: White count 9.8, hemoglobin 9.7, hematocrit 30, platelets 184. INR 0.97. Sodium 131, potassium 4.4, chloride 98, bicarb 27, BUN 21, creatinine 1.82, lactic acid 1. Troponin is 0. Urine shows 2+ protein. Radiographic data: Renal ultrasound, echogenic kidneys compatible with medical renal disease. Chest x-ray, no active disease. Head CT, old left MCA distribution infarct. No acute findings. EKG shows normal sinus rhythm. ASSESSMENT: This is a 57-year-old female with past medical history of lupus and left MCA infarct, who presents to the emergency room with worsening right- sided pain. Right-sided pain. Assessment: There is no obvious deformity or changes in her baseline neurologic exam. I am concerned about with her history of lupus that this is worsening arthralgias in the setting of worsening renal failure and proteinuria, this could be a lupus flare. Other possibility is less likely is stroke as there is no change in her weakness or sensory deficit, this is all pain related. She also recently underwent hip replacement, so a few month ago it is possible there is an underlying DVT present. Plan: We will admit her to telemetry for observation with neurologic checks. We will check a C3, C4, and inflammatory markers. We will check a Doppler of her right lower extremity to rule out a DVT. We will place a PT consult and pain control for her arthralgias and pain. Recommend repeating her labs and following up with Rheumatology and possibly Nephrology for further evaluation to evaluate that this is lupus flare and also lupus nephritis as the patient may need further management with steroid treatment. CHRONIC MEDICAL PROBLEMS: 1. History of stroke with right-sided spasm. Continue her baclofen and gabapentin. 2. History of lupus. Continue her hydroxychloroquine. 3. History of seizure. Continue phenobarbital. We will check a level. 4. Hypertension. Continue her amlodipine, Bystolic. 5. Gastroesophageal reflux disease. Continue famotidine. 6. DVT prophylaxis: The patient is at moderate risk, we will place her on heparin subcu t.i.d. 7. FEN: The patient passed her bedside swallow. Place her on a heart-healthy diet. 8. Code status. Full code. PATIENT TIME: Greater than 70 minutes spent doing the history and physical, more than half time in direct patient contact. [id number]/[id number] #: [id number] [facility]
[2017-07-12] MEDS: PHENobarbital TAB(*) 30 MG PO SCH ×2 (07:50→20:53)
[2017-07-12] MEDS: Gabapentin CAP(*) 300 MG PO SCH ×2 (07:51→20:54)
[2017-07-12] MEDS: Hydroxychloroquine TAB* 200 MG PO SCH ×2 (07:51→16:28)
[2017-07-12] MEDS: CMCS: Nebivolol TAB (NF) 2.5 MG TAB PO SCH (07:53)
[2017-07-12] MEDS ORDERED: amLODIPine TAB* 5 MG PO SCH (09:00)
[2017-07-12 09:08] LABS: Hematocrit 27 % (35-47); Hemoglobin 9.3 g/dl (12.0-16.0); Mean Corpuscular HGB Conc 34 g/dl (31-36); Mean Corpuscular Hemoglobin 28 pg (27-31); Mean Corpuscular Volume 82 fL (80-97); Mean Platelet Volume 8 um3 (7.4-10.4); Red Blood Count 3.31 10^6/ul (4.0-5.4); Red Cell Distribution Width 14 % (10.5-15); White Blood Count 7.7 10^3/ul (3.5-10.8)
[2017-07-12 09:21] LABS: BUN/Creatinine Ratio 12.4 (8-20); Calcium 8.6 mg/dL (8.6-10.3); EGFR African American 42.4 (>60); Potassium 4.1 mmol/L (3.5-5.0)
--- NOTE | 2017-07-12 14:08 | PN ---
Subjective Date of Service: 07/12/17 Interval History: Pain much better now. Pt refuses to grade it on a 1-10 scale. No new c/o. Objective Active Medications: Acetaminophen (Tylenol Tab*) 650 mg PO Q4H PRN PRN Reason: FEVER/PAIN Al Hydrox/Mg Hydrox/Simethicone (Maalox Plus*) 30 ml PO Q6H PRN PRN Reason: INDIGESTION Amlodipine Besylate (Norvasc Tab*) 5 mg PO DAILY [facility] Last Admin: 07/12/17 07:52 Dose: 5 mg Baclofen (Lioresal Tab*) 10 mg PO BID PRN PRN Reason: SPASMS Docusate Sodium (Colace Cap*) 100 mg PO BID PRN PRN Reason: CONSTIPATION Famotidine (Pepcid Tab*) 20 mg PO 2100 [facility] Gabapentin (Neurontin Cap(*)) 600 mg PO BID [facility] Last Admin: 07/12/17 07:51 Dose: 600 mg Heparin Sodium (Porcine) (Heparin Vial(*)) 5,000 units SUBCUT Q8HR [facility] Last Admin: 07/12/17 13:43 Dose: 5,000 units Hydroxychloroquine Sulfate (Plaquenil Tab*) 200 mg PO BID WITH MEALS [facility] Last Admin: 07/12/17 07:51 Dose: 200 mg Morphine Sulfate (Morphine Inj (Syringe)*) 2 mg IV Q4H PRN PRN Reason: PAIN - MILD Nebivolol (Bystolic Tab (Nf)) 5 mg PO DAILY [facility] Last Admin: 07/12/17 07:53 Dose: 5 mg Ondansetron HCl (Zofran Inj*) 4 mg IV Q4H PRN PRN Reason: NAUSEA/VOMITING Oxycodone/Acetaminophen (Percocet 5/325 Tab*) 1 tab PO Q4H PRN PRN Reason: PAIN Last Admin: 07/12/17 12:42 Dose: 1 tab Phenobarbital (Phenobarbital Tab(*)) 60 mg PO BID [facility] Last Admin: 07/12/17 07:50 Dose: 60 mg Senna (Senokot Tab*) 1 tab PO BID PRN PRN Reason: CONSTIPATION Vital Signs 07/11/17 07/11/17 07/12/17 22:00 22:30 00:00 Temperature Pulse Rate 102 95 Respiratory 21 17 Rate Blood Pressure 84/50 83/50 106/64 (mmHg) O2 Sat by Pulse 97 98 Oximetry 07/12/17 07/12/17 07/12/17 00:58 00:59 01:05 Temperature 98.3 F 98.3 F Pulse Rate 86 86 Respiratory 16 16 16 Rate Blood Pressure 106/64 106/64 (mmHg) O2 Sat by Pulse 91 91 Oximetry 07/12/17 07/12/17 07/12/17 03:05 04:14 06:26 Temperature 96.6 F Pulse Rate 88 Respiratory 16 20 22 Rate Blood Pressure 103/69 (mmHg) O2 Sat by Pulse 99 Oximetry 07/12/17 07/12/17 07/12/17 07:46 07:50 07:51 Temperature 99.1 F Pulse Rate 93 Respiratory 16 16 17 Rate Blood Pressure 105/68 (mmHg) O2 Sat by Pulse 99 Oximetry 07/12/17 07/12/17 07/12/17 07:56 08:00 08:26 Temperature Pulse Rate Respiratory 17 Rate Blood Pressure 110/70 (mmHg) O2 Sat by Pulse 99 Oximetry 07/12/17 07/12/17 07/12/17 09:50 09:51 11:28 Temperature Pulse Rate 93 Respiratory 17 17 16 Rate Blood Pressure 99/67 (mmHg) O2 Sat by Pulse 96 Oximetry 07/12/17 07/12/17 11:51 12:42 Temperature Pulse Rate Respiratory 16 17 Rate Blood Pressure (mmHg) O2 Sat by Pulse Oximetry Oxygen Devices in Use Now: None Appearance: Alert, partly up in bed. Seems apprehensive, otherwise looks comfortable. Eyes: No Scleral Icterus Respiratory: Symmetrical Chest Expansion and Respiratory Effort, Clear to Auscultation, Clear to Percussion Cardiovascular: NL Sounds; No Murmurs; No JVD, RRR, No Edema, - Extremities: No Edema, No Clubbing, Cyanosis, - Skin: No Rash or Ulcers, No Nodules or Sclerosis, - Neurological: Alert and Oriented x 3, NL Sensation, - - R hemiparesis with RUE contractures. Result Diagrams: 07/12/17 08:50 07/12/17 08:50 Additional Lab and Data: Lab Results 07/11/17 07/11/17 07/11/17 Range/Units 18:10 18:10 18:10 WBC 9.8 (3.5-10.8) 10^3/ul RBC 3.60 L (4.0-5.4) 10^6/ul Hgb 9.7 L (12.0-16.0) g/dl Hct 30 L (35-47) % MCV 83 (80-97) fL MCH 27 (27-31) pg MCHC 32 (31-36) g/dl RDW 14 (10.5-15) % Plt Count 184 (150-450) 10^3/ul MPV 8 (7.4-10.4) um3 Neut % (Auto) 80.4 (38-83) % Lymph % (Auto) 8.5 L (25-47) % [place] % (Auto) 10.6 H (1-9) % Eos % (Auto) 0.3 (0-6) % Baso % (Auto) 0.2 (0-2) % Absolute Neuts (auto) 7.9 H (1.5-7.7) 10^3/ul Absolute Lymphs (auto) 0.8 L (1.0-4.8) 10^3/ul Absolute Monos (auto) 1.0 H (0-0.8) 10^3/ul Absolute Eos (auto) 0 (0-0.6) 10^3/ul Absolute Basos (auto) 0 (0-0.2) 10^3/ul Absolute Nucleated RBC 0 10^3/ul Nucleated RBC % 0 INR (Anticoag Therapy) 0.97 (0.89-1.11) APTT 27.4 (26.0-36.3) seconds Sodium 131 L (133-145) mmol/L Potassium 4.4 (3.5-5.0) mmol/L Chloride 98 L (101-111) mmol/L Carbon Dioxide 27 (22-32) mmol/L Anion Gap 6 (2-11) mmol/L BUN 21 (6-24) mg/dL Creatinine 1.82 H (0.51-0.95) mg/dL Est GFR ( Amer) 36.8 (>60) Est GFR (Non-Af Amer) 28.6 (>60) BUN/Creatinine Ratio 11.5 (8-20) Glucose 97 (70-100) mg/dL Lactic Acid (0.5-2.0) mmol/L Calcium 9.3 (8.6-10.3) mg/dL Total Bilirubin 0.30 (0.2-1.0) mg/dL AST 13 (13-39) U/L ALT 8 (7-52) U/L Alkaline Phosphatase 44 (34-104) U/L Troponin I 0.00 (<0.04) ng/mL Total Protein 8.1 (6.4-8.9) g/dL Albumin 3.5 (3.2-5.2) g/dL Globulin 4.6 H (2-4) g/dL Albumin/Globulin Ratio 0.8 L (1-3) Triglycerides 78 mg/dL Cholesterol 144 mg/dL LDL Cholesterol 81 mg/dL HDL Cholesterol 47.1 mg/dL Urine Color Urine Appearance Urine pH (5-9) Ur Specific [place] (1.010-1.030) Urine Protein (Negative) Urine Ketones (Negative) Urine Blood (Negative) Urine Nitrate (Negative) Urine Bilirubin (Negative) Urine Urobilinogen (Negative) Ur Leukocyte Esterase (Negative) Urine WBC (Auto) (Absent) Urine RBC (Auto) (Absent) Ur Squamous Epith Cells (Absent) Urine Bacteria (Absent) Urine Glucose (Negative) Blood Type Antibody Screen 07/11/17 07/11/17 07/11/17 Range/Units 18:10 18:10 18:45 WBC (3.5-10.8) 10^3/ul RBC (4.0-5.4) 10^6/ul Hgb (12.0-16.0) g/dl Hct (35-47) % MCV (80-97) fL MCH (27-31) pg MCHC (31-36) g/dl RDW (10.5-15) % Plt Count (150-450) 10^3/ul MPV (7.4-10.4) um3 Neut % (Auto) (38-83) % Lymph % (Auto) (25-47) % [place] % (Auto) (1-9) % Eos % (Auto) (0-6) % Baso % (Auto) (0-2) % Absolute Neuts (auto) (1.5-7.7) 10^3/ul Absolute Lymphs (auto) (1.0-4.8) 10^3/ul Absolute Monos (auto) (0-0.8) 10^3/ul Absolute Eos (auto) (0-0.6) 10^3/ul Absolute Basos (auto) (0-0.2) 10^3/ul Absolute Nucleated RBC 10^3/ul Nucleated RBC % INR (Anticoag Therapy) (0.89-1.11) APTT (26.0-36.3) seconds Sodium (133-145) mmol/L Potassium (3.5-5.0) mmol/L Chloride (101-111) mmol/L Carbon Dioxide (22-32) mmol/L Anion Gap (2-11) mmol/L BUN (6-24) mg/dL Creatinine (0.51-0.95) mg/dL Est GFR ( Amer) (>60) Est GFR (Non-Af Amer) (>60) BUN/Creatinine Ratio (8-20) Glucose (70-100) mg/dL Lactic Acid 1.0 (0.5-2.0) mmol/L Calcium (8.6-10.3) mg/dL Total Bilirubin (0.2-1.0) mg/dL AST (13-39) U/L ALT (7-52) U/L Alkaline Phosphatase (34-104) U/L Troponin I (<0.04) ng/mL Total Protein (6.4-8.9) g/dL Albumin (3.2-5.2) g/dL Globulin (2-4) g/dL Albumin/Globulin Ratio (1-3) Triglycerides mg/dL Cholesterol mg/dL LDL Cholesterol mg/dL HDL Cholesterol mg/dL Urine Color Yellow Urine Appearance Cloudy Urine pH 8.0 (5-9) Ur Specific [place] 1.008 L (1.010-1.030) Urine Protein 2+(100 mg/dl) H (Negative) Urine Ketones Negative (Negative) Urine Blood Negative (Negative) Urine Nitrate Negative (Negative) Urine Bilirubin Negative (Negative) Urine Urobilinogen Negative (Negative) Ur Leukocyte Esterase 3+ H (Negative) Urine WBC (Auto) 3+(>20/hpf) H (Absent) Urine RBC (Auto) 2+(6-10/hpf) H (Absent) Ur Squamous Epith Cells Present H (Absent) Urine Bacteria 1+ H (Absent) Urine Glucose Negative (Negative) Blood Type O Negative Antibody Screen Negative Assess/Plan/Problems-Billing Assessment: - Patient Problems (1) Lupus Current Visit: No Status: Chronic Priority: High Code(s): M32.9 - SYSTEMIC LUPUS ERYTHEMATOSUS, UNSPECIFIED SNOMED Code(s): 64680967 Comment: Possible lupus flare. Note high ESR and high CRP. Patient refuses prednisone. Continue analgesics PRN. PT eval pending. Rheumatology consultation will be available Saturday 07/14. (2) History of CVA with residual deficit Current Visit: No Status: Chronic Code(s): I69.30 - UNSPECIFIED SEQUELAE OF CEREBRAL INFARCTION SNOMED Code(s): 572300868 Comment: right-sided numbness, contractures, and weakness at baseline (3) CKD (chronic kidney disease) stage 3, GFR 30-59 ml/min Current Visit: Yes Status: Acute Code(s): N18.3 - CHRONIC KIDNEY DISEASE, STAGE 3 (MODERATE) SNOMED Code(s): 224851141 Comment: Est GFR 33.0 07/12/17. IV fluids ordered to start 07/12. BMP in 2 days. (4) S/P thyroidectomy Current Visit: No Status: Acute Priority: High Onset Date: 04/19/15 Code (s): E89.0 - POSTPROCEDURAL HYPOTHYROIDISM SNOMED Code(s): 693830124 Comment: Add on TSH requested. (5) Hypertension Current Visit: No Status: Chronic Code(s): I10 - ESSENTIAL (PRIMARY) HYPERTENSION SNOMED Code(s): 59664590 Comment: Reduce amlodipine 07/12, continue nebivolol. (6) Seizure Current Visit: No Status: Chronic Priority: Medium Code(s): R56.9 - UNSPECIFIED CONVULSIONS SNOMED Code(s): 64179904 Comment: Continue phenobarbital. Level 28.3 on 07/11/17.
[2017-07-12] MEDS: D5W 1/2 NS 1000 ML BAG* 1,000 ML IV SCH (14:26)
--- NOTE | 2017-07-12 14:47 | RAD ---
Indication: Right leg edema. Duplex Doppler sonography of the deep venous system of the right lower extremity deep venous system was performed. Bilaterally the common femoral veins appear patent and compressible. Right proximal greater saphenous vein, proximal deep femoral vein, femoral vein, popliteal vein, posterior tibial veins and peroneal veins appear patent and compressible. IMPRESSION: NO EVIDENCE OF DEEP VENOUS THROMBOSIS IS IDENTIFIED.
[2017-07-12 15:03] LABS: TSH (Thyroid Stimulating Horm) 1.67 mcIU/mL (0.34-5.60)
[2017-07-12] MEDS: Acetaminophen TAB* 325 MG PO PRN (18:59)
[2017-07-12] MEDS: Famotidine TAB* 20 MG PO SCH (20:53)
[2017-07-13] MEDS: D5W 1/2 NS 1000 ML BAG* 1,000 ML IV SCH ×3 (00:50→15:00)
[2017-07-13] MEDS: Heparin VIAL(*) 5000 UNITS/ML VIAL (FIVE THOUSAND) SUBCUT SCH ×3 (05:49→20:52)
[2017-07-13] MEDS: CMCS: Nebivolol TAB (NF) 2.5 MG TAB PO SCH (07:35)
[2017-07-13] MEDS: Gabapentin CAP(*) 300 MG PO SCH ×2 (07:36→20:49)
[2017-07-13] MEDS: PHENobarbital TAB(*) 30 MG PO SCH ×2 (07:36→20:49)
[2017-07-13] MEDS: Hydroxychloroquine TAB* 200 MG PO SCH ×2 (07:36→16:16)
[2017-07-13] MEDS ORDERED: amLODIPine TAB* 5 MG PO SCH (09:00)
[2017-07-13] MEDS: Acetaminophen TAB* 325 MG PO PRN ×2 (11:23→20:49)
--- NOTE | 2017-07-13 11:29 | PN ---
Subjective Date of Service: 07/13/17 Interval History: Pain somewhat better. She hasn't tried walking yet. No new c/o. Objective Active Medications: Acetaminophen (Tylenol Tab*) 650 mg PO Q4H PRN PRN Reason: FEVER/PAIN Last Admin: 07/13/17 11:23 Dose: 650 mg Al Hydrox/Mg Hydrox/Simethicone (Maalox Plus*) 30 ml PO Q6H PRN PRN Reason: INDIGESTION Amlodipine Besylate (Norvasc Tab*) 2.5 mg PO DAILY [facility] Last Admin: 07/13/17 07:37 Dose: 2.5 mg Baclofen (Lioresal Tab*) 10 mg PO BID PRN PRN Reason: SPASMS Docusate Sodium (Colace Cap*) 100 mg PO BID PRN PRN Reason: CONSTIPATION Famotidine (Pepcid Tab*) 20 mg PO 2100 [facility] Last Admin: 07/12/17 20:53 Dose: 20 mg Gabapentin (Neurontin Cap(*)) 600 mg PO BID [facility] Last Admin: 07/13/17 07:36 Dose: 600 mg Heparin Sodium (Porcine) (Heparin Vial(*)) 5,000 units SUBCUT Q8HR [facility] Last Admin: 07/13/17 05:49 Dose: 5,000 units Hydroxychloroquine Sulfate (Plaquenil Tab*) 200 mg PO BID WITH MEALS [facility] Last Admin: 07/13/17 07:36 Dose: 200 mg Dextrose/Sodium Chloride (D5w 1/2 Ns 1000 Ml Bag*) 1,000 mls @ 100 mls/hr IV PER RATE [facility] Last Admin: 07/13/17 00:50 Dose: 100 mls/hr Morphine Sulfate (Morphine Inj (Syringe)*) 2 mg IV Q4H PRN PRN Reason: PAIN - MILD Nebivolol (Bystolic Tab (Nf)) 5 mg PO DAILY [facility] Last Admin: 07/13/17 07:35 Dose: 5 mg Ondansetron HCl (Zofran Inj*) 4 mg IV Q4H PRN PRN Reason: NAUSEA/VOMITING Oxycodone/Acetaminophen (Percocet 5/325 Tab*) 1 tab PO Q4H PRN PRN Reason: PAIN Last Admin: 07/12/17 12:42 Dose: 1 tab Phenobarbital (Phenobarbital Tab(*)) 60 mg PO BID [facility] Last Admin: 07/13/17 07:36 Dose: 60 mg Senna (Senokot Tab*) 1 tab PO BID PRN PRN Reason: CONSTIPATION Vital Signs 07/12/17 07/12/17 07/13/17 22:53 22:54 00:05 Temperature 98.5 F Pulse Rate 84 Respiratory 15 15 19 Rate Blood Pressure 101/67 (mmHg) O2 Sat by Pulse 95 Oximetry 07/13/17 07/13/17 07/13/17 03:20 07:36 08:23 Temperature 99.2 F 100.7 F Pulse Rate 94 97 Respiratory 18 17 20 Rate Blood Pressure 136/82 108/65 (mmHg) O2 Sat by Pulse 100 100 Oximetry 07/13/17 09:36 Temperature Pulse Rate Respiratory 17 Rate Blood Pressure (mmHg) O2 Sat by Pulse Oximetry Oxygen Devices in Use Now: None Appearance: Alert, partly up in bed. In fair spirits. Looks comfortable. Eyes: No Scleral Icterus Extremities: No Edema, No Clubbing, Cyanosis, - Skin: No Rash or Ulcers, No Nodules or Sclerosis, - Neurological: Alert and Oriented x 3, NL Sensation, - - moderate aphasia. RUE weak and contracted. No tremor. Result Diagrams: 07/12/17 08:50 07/12/17 08:50 Additional Lab and Data: Lab Results 07/11/17 07/11/17 07/11/17 Range/Units 18:10 18:10 18:10 WBC 9.8 (3.5-10.8) 10^3/ul RBC 3.60 L (4.0-5.4) 10^6/ul Hgb 9.7 L (12.0-16.0) g/dl Hct 30 L (35-47) % MCV 83 (80-97) fL MCH 27 (27-31) pg MCHC 32 (31-36) g/dl RDW 14 (10.5-15) % Plt Count 184 (150-450) 10^3/ul MPV 8 (7.4-10.4) um3 Neut % (Auto) 80.4 (38-83) % Lymph % (Auto) 8.5 L (25-47) % [place] % (Auto) 10.6 H (1-9) % Eos % (Auto) 0.3 (0-6) % Baso % (Auto) 0.2 (0-2) % Absolute Neuts (auto) 7.9 H (1.5-7.7) 10^3/ul Absolute Lymphs (auto) 0.8 L (1.0-4.8) 10^3/ul Absolute Monos (auto) 1.0 H (0-0.8) 10^3/ul Absolute Eos (auto) 0 (0-0.6) 10^3/ul Absolute Basos (auto) 0 (0-0.2) 10^3/ul Absolute Nucleated RBC 0 10^3/ul Nucleated RBC % 0 INR (Anticoag Therapy) 0.97 (0.89-1.11) APTT 27.4 (26.0-36.3) seconds Sodium 131 L (133-145) mmol/L Potassium 4.4 (3.5-5.0) mmol/L Chloride 98 L (101-111) mmol/L Carbon Dioxide 27 (22-32) mmol/L Anion Gap 6 (2-11) mmol/L BUN 21 (6-24) mg/dL Creatinine 1.82 H (0.51-0.95) mg/dL Est GFR ( Amer) 36.8 (>60) Est GFR (Non-Af Amer) 28.6 (>60) BUN/Creatinine Ratio 11.5 (8-20) Glucose 97 (70-100) mg/dL Lactic Acid (0.5-2.0) mmol/L Calcium 9.3 (8.6-10.3) mg/dL Total Bilirubin 0.30 (0.2-1.0) mg/dL AST 13 (13-39) U/L ALT 8 (7-52) U/L Alkaline Phosphatase 44 (34-104) U/L Troponin I 0.00 (<0.04) ng/mL Total Protein 8.1 (6.4-8.9) g/dL Albumin 3.5 (3.2-5.2) g/dL Globulin 4.6 H (2-4) g/dL Albumin/Globulin Ratio 0.8 L (1-3) Triglycerides 78 mg/dL Cholesterol 144 mg/dL LDL Cholesterol 81 mg/dL HDL Cholesterol 47.1 mg/dL Urine Color Urine Appearance Urine pH (5-9) Ur Specific [place] (1.010-1.030) Urine Protein (Negative) Urine Ketones (Negative) Urine Blood (Negative) Urine Nitrate (Negative) Urine Bilirubin (Negative) Urine Urobilinogen (Negative) Ur Leukocyte Esterase (Negative) Urine WBC (Auto) (Absent) Urine RBC (Auto) (Absent) Ur Squamous Epith Cells (Absent) Urine Bacteria (Absent) Urine Glucose (Negative) Blood Type Antibody Screen 07/11/17 07/11/17 07/11/17 Range/Units 18:10 18:10 18:45 WBC (3.5-10.8) 10^3/ul RBC (4.0-5.4) 10^6/ul Hgb (12.0-16.0) g/dl Hct (35-47) % MCV (80-97) fL MCH (27-31) pg MCHC (31-36) g/dl RDW (10.5-15) % Plt Count (150-450) 10^3/ul MPV (7.4-10.4) um3 Neut % (Auto) (38-83) % Lymph % (Auto) (25-47) % [place] % (Auto) (1-9) % Eos % (Auto) (0-6) % Baso % (Auto) (0-2) % Absolute Neuts (auto) (1.5-7.7) 10^3/ul Absolute Lymphs (auto) (1.0-4.8) 10^3/ul Absolute Monos (auto) (0-0.8) 10^3/ul Absolute Eos (auto) (0-0.6) 10^3/ul Absolute Basos (auto) (0-0.2) 10^3/ul Absolute Nucleated RBC 10^3/ul Nucleated RBC % INR (Anticoag Therapy) (0.89-1.11) APTT (26.0-36.3) seconds Sodium (133-145) mmol/L Potassium (3.5-5.0) mmol/L Chloride (101-111) mmol/L Carbon Dioxide (22-32) mmol/L Anion Gap (2-11) mmol/L BUN (6-24) mg/dL Creatinine (0.51-0.95) mg/dL Est GFR ( Amer) (>60) Est GFR (Non-Af Amer) (>60) BUN/Creatinine Ratio (8-20) Glucose (70-100) mg/dL Lactic Acid 1.0 (0.5-2.0) mmol/L Calcium (8.6-10.3) mg/dL Total Bilirubin (0.2-1.0) mg/dL AST (13-39) U/L ALT (7-52) U/L Alkaline Phosphatase (34-104) U/L Troponin I (<0.04) ng/mL Total Protein (6.4-8.9) g/dL Albumin (3.2-5.2) g/dL Globulin (2-4) g/dL Albumin/Globulin Ratio (1-3) Triglycerides mg/dL Cholesterol mg/dL LDL Cholesterol mg/dL HDL Cholesterol mg/dL Urine Color Yellow Urine Appearance Cloudy Urine pH 8.0 (5-9) Ur Specific [place] 1.008 L (1.010-1.030) Urine Protein 2+(100 mg/dl) H (Negative) Urine Ketones Negative (Negative) Urine Blood Negative (Negative) Urine Nitrate Negative (Negative) Urine Bilirubin Negative (Negative) Urine Urobilinogen Negative (Negative) Ur Leukocyte Esterase 3+ H (Negative) Urine WBC (Auto) 3+(>20/hpf) H (Absent) Urine RBC (Auto) 2+(6-10/hpf) H (Absent) Ur Squamous Epith Cells Present H (Absent) Urine Bacteria 1+ H (Absent) Urine Glucose Negative (Negative) Blood Type O Negative Antibody Screen Negative Assess/Plan/Problems-Billing Assessment: - Patient Problems (1) Lupus Current Visit: No Status: Chronic Priority: High Code(s): M32.9 - SYSTEMIC LUPUS ERYTHEMATOSUS, UNSPECIFIED SNOMED Code(s): 69718216 Comment: Possible lupus flare. Note high ESR and high CRP. Patient refuses prednisone. Continue analgesics PRN. PT eval pending. Rheumatology consultation will be available Saturday 07/14. Pt walks with a cane at home. (2) History of CVA with residual deficit Current Visit: No Status: Chronic Code(s): I69.30 - UNSPECIFIED SEQUELAE OF CEREBRAL INFARCTION SNOMED Code(s): 712256028 Comment: right-sided numbness, contractures, and weakness at baseline (3) CKD (chronic kidney disease) stage 3, GFR 30-59 ml/min Current Visit: Yes Status: Acute Code(s): N18.3 - CHRONIC KIDNEY DISEASE, STAGE 3 (MODERATE) SNOMED Code(s): 597458006 Comment: Est GFR 33.0 07/12/17. IV fluids ordered to start 07/12. BMP in 2 days. (4) S/P thyroidectomy Current Visit: No Status: Acute Priority: High Onset Date: 04/19/15 Code (s): E89.0 - POSTPROCEDURAL HYPOTHYROIDISM SNOMED Code(s): 271631827 Comment: Add on TSH wnl 07/12/17. (5) Hypertension Current Visit: No Status: Chronic Code(s): I10 - ESSENTIAL (PRIMARY) HYPERTENSION SNOMED Code(s): 86832810 Comment: First dose of 2.5 mg amlodipine 07/13. Continue nebivolol. (6) Seizure Current Visit: No Status: Chronic Priority: Medium Code(s): R56.9 - UNSPECIFIED CONVULSIONS SNOMED Code(s): 69090487 Comment: Continue phenobarbital. Level 28.3 on 07/11/17. (7) UTI (urinary tract infection) Current Visit: Yes Status: Acute Comment: Urine grew > 100,000 E. coli sens all antibiotics tested. Start ceftriaxone 07/13.
[2017-07-13] MEDS: oxyCODONE/Acetamin 5/325 MG* TAB PO PRN (11:48)
[2017-07-13] MEDS: cefTRIAXone VIAL(*) 1,000 MG in NS 0.9% 50 ML* 50 ML IVPB SCH (14:43)
[2017-07-13] MEDS: Famotidine TAB* 20 MG PO SCH (20:49)
[2017-07-14] MEDS: D5W 1/2 NS 1000 ML BAG* 1,000 ML IV SCH (03:19)
[2017-07-14] MEDS: Heparin VIAL(*) 5000 UNITS/ML VIAL (FIVE THOUSAND) SUBCUT SCH ×3 (05:10→21:18)
[2017-07-14] MEDS: Hydroxychloroquine TAB* 200 MG PO SCH ×2 (09:57→15:51)
[2017-07-14] MEDS: CMCS: Nebivolol TAB (NF) 2.5 MG TAB PO SCH (09:57)
[2017-07-14] MEDS: Gabapentin CAP(*) 300 MG PO SCH ×2 (09:58→21:18)
[2017-07-14] MEDS: Acetaminophen TAB* 325 MG PO PRN (09:59)
[2017-07-14] MEDS: PHENobarbital TAB(*) 30 MG PO SCH ×2 (09:59→21:18)
[2017-07-14 14:13] LABS: Complement C3 153 mg/dL (75 - 175)
[2017-07-14] MEDS ORDERED: ceFUROXime TAB(*) 250 MG PO ONE (16:58)
--- NOTE | 2017-07-14 16:59 | PN ---
Subjective Date of Service: 07/14/17 Interval History: Pain better today. No new c/o. Objective Active Medications: Acetaminophen (Tylenol Tab*) 650 mg PO Q4H PRN PRN Reason: FEVER/PAIN Last Admin: 07/14/17 09:59 Dose: 650 mg Al Hydrox/Mg Hydrox/Simethicone (Maalox Plus*) 30 ml PO Q6H PRN PRN Reason: INDIGESTION Baclofen (Lioresal Tab*) 10 mg PO BID PRN PRN Reason: SPASMS Cefuroxime Axetil (Ceftin Tab(*)) 250 mg PO BID [facility] Docusate Sodium (Colace Cap*) 100 mg PO BID PRN PRN Reason: CONSTIPATION Famotidine (Pepcid Tab*) 20 mg PO 2100 [facility] Last Admin: 07/13/17 20:49 Dose: 20 mg Gabapentin (Neurontin Cap(*)) 600 mg PO BID [facility] Last Admin: 07/14/17 09:58 Dose: 600 mg Heparin Sodium (Porcine) (Heparin Vial(*)) 5,000 units SUBCUT Q8HR [facility] Last Admin: 07/14/17 14:18 Dose: 5,000 units Hydroxychloroquine Sulfate (Plaquenil Tab*) 200 mg PO BID WITH MEALS [facility] Last Admin: 07/14/17 15:51 Dose: 200 mg Ceftriaxone Sodium 1,000 mg/ (Sodium Chloride) 50 mls @ 200 mls/hr IVPB Q24H [facility] Last Admin: 07/13/17 14:43 Dose: 200 mls/hr Morphine Sulfate (Morphine Inj (Syringe)*) 2 mg IV Q4H PRN PRN Reason: PAIN - MILD Last Admin: 07/13/17 14:14 Dose: 2 mg Nebivolol (Bystolic Tab (Nf)) 5 mg PO DAILY [facility] Last Admin: 07/14/17 09:57 Dose: 5 mg Ondansetron HCl (Zofran Inj*) 4 mg IV Q4H PRN PRN Reason: NAUSEA/VOMITING Oxycodone/Acetaminophen (Percocet 5/325 Tab*) 1 tab PO Q4H PRN PRN Reason: PAIN Last Admin: 07/13/17 11:48 Dose: 1 tab Phenobarbital (Phenobarbital Tab(*)) 60 mg PO BID [facility] Last Admin: 07/14/17 09:59 Dose: 60 mg Senna (Senokot Tab*) 1 tab PO BID PRN PRN Reason: CONSTIPATION Vital Signs 07/13/17 07/13/17 07/13/17 20:00 20:47 20:49 Temperature 100.8 F Pulse Rate 100 Respiratory 17 16 20 Rate Blood Pressure 117/69 (mmHg) O2 Sat by Pulse 99 99 Oximetry 07/13/17 07/14/17 07/14/17 22:49 00:08 04:33 Temperature 98.4 F 97.8 F Pulse Rate 86 84 Respiratory 17 16 16 Rate Blood Pressure 104/68 133/76 (mmHg) O2 Sat by Pulse 99 100 Oximetry 07/14/17 07/14/17 07/14/17 07:47 08:00 09:58 Temperature 99.1 F Pulse Rate 91 Respiratory 16 16 16 Rate Blood Pressure 129/82 (mmHg) O2 Sat by Pulse 96 Oximetry 07/14/17 07/14/17 09:59 15:15 Temperature 98.1 F Pulse Rate 81 Respiratory 16 14 Rate Blood Pressure 106/67 (mmHg) O2 Sat by Pulse 100 Oximetry Oxygen Devices in Use Now: None Appearance: Alert, partly up in bed. In fair spirits. Looks weak but uncomfortable. She denies depression. Eyes: No Scleral Icterus Extremities: No Edema, No Clubbing, Cyanosis, - Skin: No Rash or Ulcers, No Nodules or Sclerosis, - Neurological: Alert and Oriented x 3, NL Sensation Result Diagrams: 07/12/17 08:50 07/12/17 08:50 Additional Lab and Data: Lab Results 07/11/17 07/11/17 07/11/17 Range/Units 18:10 18:10 18:10 WBC 9.8 (3.5-10.8) 10^3/ul RBC 3.60 L (4.0-5.4) 10^6/ul Hgb 9.7 L (12.0-16.0) g/dl Hct 30 L (35-47) % MCV 83 (80-97) fL MCH 27 (27-31) pg MCHC 32 (31-36) g/dl RDW 14 (10.5-15) % Plt Count 184 (150-450) 10^3/ul MPV 8 (7.4-10.4) um3 Neut % (Auto) 80.4 (38-83) % Lymph % (Auto) 8.5 L (25-47) % Norton % (Auto) 10.6 H (1-9) % Eos % (Auto) 0.3 (0-6) % Baso % (Auto) 0.2 (0-2) % Absolute Neuts (auto) 7.9 H (1.5-7.7) 10^3/ul Absolute Lymphs (auto) 0.8 L (1.0-4.8) 10^3/ul Absolute Monos (auto) 1.0 H (0-0.8) 10^3/ul Absolute Eos (auto) 0 (0-0.6) 10^3/ul Absolute Basos (auto) 0 (0-0.2) 10^3/ul Absolute Nucleated RBC 0 10^3/ul Nucleated RBC % 0 INR (Anticoag Therapy) 0.97 (0.89-1.11) APTT 27.4 (26.0-36.3) seconds Sodium 131 L (133-145) mmol/L Potassium 4.4 (3.5-5.0) mmol/L Chloride 98 L (101-111) mmol/L Carbon Dioxide 27 (22-32) mmol/L Anion Gap 6 (2-11) mmol/L BUN 21 (6-24) mg/dL Creatinine 1.82 H (0.51-0.95) mg/dL Est GFR ( Amer) 36.8 (>60) Est GFR (Non-Af Amer) 28.6 (>60) BUN/Creatinine Ratio 11.5 (8-20) Glucose 97 (70-100) mg/dL Lactic Acid (0.5-2.0) mmol/L Calcium 9.3 (8.6-10.3) mg/dL Total Bilirubin 0.30 (0.2-1.0) mg/dL AST 13 (13-39) U/L ALT 8 (7-52) U/L Alkaline Phosphatase 44 (34-104) U/L Troponin I 0.00 (<0.04) ng/mL Total Protein 8.1 (6.4-8.9) g/dL Albumin 3.5 (3.2-5.2) g/dL Globulin 4.6 H (2-4) g/dL Albumin/Globulin Ratio 0.8 L (1-3) Triglycerides 78 mg/dL Cholesterol 144 mg/dL LDL Cholesterol 81 mg/dL HDL Cholesterol 47.1 mg/dL Urine Color Urine Appearance Urine pH (5-9) Ur Specific [place] (1.010-1.030) Urine Protein (Negative) Urine Ketones (Negative) Urine Blood (Negative) Urine Nitrate (Negative) Urine Bilirubin (Negative) Urine Urobilinogen (Negative) Ur Leukocyte Esterase (Negative) Urine WBC (Auto) (Absent) Urine RBC (Auto) (Absent) Ur Squamous Epith Cells (Absent) Urine Bacteria (Absent) Urine Glucose (Negative) Blood Type Antibody Screen 07/11/17 07/11/17 07/11/17 Range/Units 18:10 18:10 18:45 WBC (3.5-10.8) 10^3/ul RBC (4.0-5.4) 10^6/ul Hgb (12.0-16.0) g/dl Hct (35-47) % MCV (80-97) fL MCH (27-31) pg MCHC (31-36) g/dl RDW (10.5-15) % Plt Count (150-450) 10^3/ul MPV (7.4-10.4) um3 Neut % (Auto) (38-83) % Lymph % (Auto) (25-47) % Norton % (Auto) (1-9) % Eos % (Auto) (0-6) % Baso % (Auto) (0-2) % Absolute Neuts (auto) (1.5-7.7) 10^3/ul Absolute Lymphs (auto) (1.0-4.8) 10^3/ul Absolute Monos (auto) (0-0.8) 10^3/ul Absolute Eos (auto) (0-0.6) 10^3/ul Absolute Basos (auto) (0-0.2) 10^3/ul Absolute Nucleated RBC 10^3/ul Nucleated RBC % INR (Anticoag Therapy) (0.89-1.11) APTT (26.0-36.3) seconds Sodium (133-145) mmol/L Potassium (3.5-5.0) mmol/L Chloride (101-111) mmol/L Carbon Dioxide (22-32) mmol/L Anion Gap (2-11) mmol/L BUN (6-24) mg/dL Creatinine (0.51-0.95) mg/dL Est GFR ( Amer) (>60) Est GFR (Non-Af Amer) (>60) BUN/Creatinine Ratio (8-20) Glucose (70-100) mg/dL Lactic Acid 1.0 (0.5-2.0) mmol/L Calcium (8.6-10.3) mg/dL Total Bilirubin (0.2-1.0) mg/dL AST (13-39) U/L ALT (7-52) U/L Alkaline Phosphatase (34-104) U/L Troponin I (<0.04) ng/mL Total Protein (6.4-8.9) g/dL Albumin (3.2-5.2) g/dL Globulin (2-4) g/dL Albumin/Globulin Ratio (1-3) Triglycerides mg/dL Cholesterol mg/dL LDL Cholesterol mg/dL HDL Cholesterol mg/dL Urine Color Yellow Urine Appearance Cloudy Urine pH 8.0 (5-9) Ur Specific [place] 1.008 L (1.010-1.030) Urine Protein 2+(100 mg/dl) H (Negative) Urine Ketones Negative (Negative) Urine Blood Negative (Negative) Urine Nitrate Negative (Negative) Urine Bilirubin Negative (Negative) Urine Urobilinogen Negative (Negative) Ur Leukocyte Esterase 3+ H (Negative) Urine WBC (Auto) 3+(>20/hpf) H (Absent) Urine RBC (Auto) 2+(6-10/hpf) H (Absent) Ur Squamous Epith Cells Present H (Absent) Urine Bacteria 1+ H (Absent) Urine Glucose Negative (Negative) Blood Type O Negative Antibody Screen Negative Assess/Plan/Problems-Billing Assessment: - Patient Problems (1) Lupus Current Visit: No Status: Chronic Priority: High Code(s): M32.9 - SYSTEMIC LUPUS ERYTHEMATOSUS, UNSPECIFIED SNOMED Code(s): 93678651 Comment: Possible lupus flare. Note high ESR and high CRP. Patient refuses prednisone. Continue analgesics PRN. Dr. Lebron to consult. Pt walks with a cane at home. (2) History of CVA with residual deficit Current Visit: No Status: Chronic Code(s): I69.30 - UNSPECIFIED SEQUELAE OF CEREBRAL INFARCTION SNOMED Code(s): 614017242 Comment: right-sided numbness, contractures, and weakness at baseline (3) CKD (chronic kidney disease) stage 3, GFR 30-59 ml/min Current Visit: Yes Status: Acute Code(s): N18.3 - CHRONIC KIDNEY DISEASE, STAGE 3 (MODERATE) SNOMED Code(s): 755768336 Comment: Est GFR 33.0 07/12/17. IV fluids ordered to start 07/12. BMP 07/15. Pt encouraged to take po fluids. (4) S/P thyroidectomy Current Visit: No Status: Acute Priority: High Onset Date: 04/19/15 Code (s): E89.0 - POSTPROCEDURAL HYPOTHYROIDISM SNOMED Code(s): 597498427 Comment: Add on TSH wnl 07/12/17. (5) Hypertension Current Visit: No Status: Chronic Code(s): I10 - ESSENTIAL (PRIMARY) HYPERTENSION SNOMED Code(s): 29750492 Comment: First dose of 2.5 mg amlodipine 07/13. Continue nebivolol. (6) Seizure Current Visit: No Status: Chronic Priority: Medium Code(s): R56.9 - UNSPECIFIED CONVULSIONS SNOMED Code(s): 21250010 Comment: Continue phenobarbital. Level 28.3 on 07/11/17. (7) UTI (urinary tract infection) Current Visit: Yes Status: Acute Comment: Urine grew > 100,000 E. coli sens all antibiotics tested. Start ceftriaxone 07/13, change to po cefuroxime PM .
[2017-07-14] MEDS: cefTRIAXone VIAL(*) 1,000 MG in NS 0.9% 50 ML* 50 ML IVPB SCH (18:02)
--- NOTE | 2017-07-14 19:19 | CONSULT ---
Consult Consult: Ms. Rao is a 57 year old woman with a long standing history of systemic lupus with multiorgan involvement. She was admitted with right sided discomfort and found to have a UTI. At present, it is difficult to tell how much of her symptoms are related to a lupus flare, as she does have chronic genitourinary issues and she was noted to have ongoing right sided discomfort as an outpatient. Additionally her elevated complement (as opposed to decreased complement) supports more of an acute inflammatory process due to a UTI or similiar event rather than a lupus flare. She has declined prednisone for treatment given her history of avascular necrosis and I would also not advise steroids until further serologies are checked and compared to baseline out patient labs, including DSDNA. [employer], as an outpatient, we potentially could consider Benlysta. Given her history of cytoxan exposure and hematuria, consider checking a urine cytology to screen for bladder malignancy. Will follow
[2017-07-14] MEDS: ceFUROXime TAB(*) 250 MG PO SCH (21:17)
[2017-07-14] MEDS: Famotidine TAB* 20 MG PO SCH (21:17)
--- NOTE | 2017-07-14 21:36 | CONS ---
CONSULTATION REPORT: DATE OF CONSULTATION: 07/14/17 CONSULTING PHYSICIAN: Jonathon Santillan MD REASON FOR CONSULTATION: Evaluate for flare of lupus. HISTORY OF PRESENT ILLNESS: Ms. Rao is a pleasant 57-year-old woman with a history of lupus and cerebrovascular disease. Specifically, she had a left MCA infarct. She initially presented with right-sided worsening pain and it was felt to possibly be related to underlying lupus. She was admitted and since admission she has felt better, but she was felt to have a UTI as well as her urine culture grew greater than 100,000 E. coli sensitive to all antibiotics. She was started on ceftriaxone and the plan was to change her to oral cefuroxime on the 07/14/17. She has refused prednisone, I believe, in part due to her history of avascular necrosis. In terms of her lupus history, she has had a right hip replacement on the [address] Canseco. As noted above, she has a history of lupus with multiorgan involvement and she last saw the nurse practitioner, Cisco Mcfarland in Rheumatology office on the 17 of June. In terms of her lupus, she has high- grade lupus dating back to 1983 with multiorgan involvement with brain, kidney, joint, and recurrent infections, avascular necrosis as a result of treatment. She has renal involvement. She had been treated with long-term IV cyclophosphamide that has resolved and she has had a followup biopsy. She continues to have residual proteinuria. 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 She also had low grade fevers when she was admitted here, but these have resolved. 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 She has been treated with bilateral hemiarthroplasty. She had a conversion at the right to a total right hip arthroplasty on 03/25/17. She has a history of chronic leukopenia, thrombocytopenia, and elevated amylase with salivary gland involvement and lupus. PAST MEDICAL HISTORY: Her recent past medical history is notable for a history of perineal and axillary abscesses with severe recurrent labial infections positive for MRSA with recurrent UTIs. She has had a hemithyroidectomy in March 2015 with pathology of a benign follicular adenoma. She had tolerated her right hip replacement well and as an outpatient, she was able to get up and out of the chair and able to walk with less pain. She has been doing physical therapy as well. She has noted blood in the urine and this was noted as an outpatient as well, but she currently denies dysuria, frequency, foul-smelling urine or abdominal or flank pain. In terms of her more recent history, she denies any specific weakness other than her residual defect, but she does have right-sided weakness from a prior stroke, but no worse than baseline. She has had a frontal headache on and off, but this has resolved as well too, but no changes in her vision. Past non-lupus history includes history of gastroesophageal reflux disease and history of acute kidney injury. REVIEW OF SYSTEMS: Cardiac: She denies chest pain. Pulmonary: Denies shortness of breath symptomatically. She denies fever. Denies upper respiratory symptoms. : She has had a urinary tract infection as noted above. Neurologic: As noted above. No other focal weakness other than those mentioned above. Skin: No new rash. Endocrine: No glandular swelling. Musculoskeletal: Denies joint pain. Other 14-point review of systems were reviewed and were otherwise negative. MEDICATIONS: As an outpatient included: 1. Baclofen 10 mg b.i.d. as needed for spasms. 2. Gabapentin 600 mg b.i.d. 3. Hydroxychloroquine 200 mg b.i.d. 4. Bystolic 5 mg daily. 5. Oxycodone as needed for pain. 6. Phenobarbital 64.8 mg p.o. b.i.d. 7. Amlodipine 5 mg daily. 8. Famotidine 20 mg daily. 9. Calcium carbonate 600 mg 400 units daily. ALLERGIES: Include FENTANYL, SULFA, and NITROFURANTOIN. FAMILY HISTORY: Notable for sister with a stroke, but no history of lupus. SOCIAL HISTORY: She lives at home alone. She does ambulate at baseline with a cane, but no history of smoking, alcohol, or illicit drug use. She had been otherwise independent except for her residual weakness. PHYSICAL EXAM: Temperature of 100.8 on the 17th, pulse rate of 100, respiratory rate of 17 to 16, blood pressure 104/68 to 133/76. She does not have any oxygen in use now. General: She was alert, able to answer simple questions. She denies any overt depression and otherwise feels well. Eyes: No scleral icterus. Oropharynx is clear. Lungs are clear to auscultation bilaterally. Cardiovascular Exam: Revealed a regular rate and rhythm. Normal S1 and S2. No S3 or S4. Abdomen: Soft, nontender, nondistended, positive bowel sounds with no organomegaly. Skin: No rash, ulcers. No nodules or sclerosis. Neurologic: She has right-sided weakness, no sensory deficits. Right upper extremity is contracted with minimum 1/5 movement. Right lower extremity has 1/5 movement as well. She has hemifacial weakness as well on the right side. No obvious deformities, swelling, or wounds. Musculoskeletal: No synovitis. She had mild hallux valgus deformities bilaterally with no edema. Endocrine: No glandular swelling. : No CVA tenderness. DIAGNOSTIC STUDIES/LAB DATA: She had a white count of 9.8, hemoglobin of 9.7, hematocrit 30, platelets 184,000. Potassium 4.4, creatinine of 1.82, troponin of 0. Urine shows 2+ protein. She had a venous Doppler study on the , which was negative for clotting. ESR was 120, monocytes of 10.6. C4 of 41, which was high, C3 was normal. Urinalysis showed 2+ rbc's as well too. CRP was elevated at 229.38, creatinine of 1.61 and hemoglobin of 9.3. ASSESSMENT AND PLAN: 1. Ms. Rao is a 57-year-old woman with a history of lupus with high-grade involvement with a history of renal involvement and neurologic involvement with a history of cerebrovascular disease. There is a question for a possible flare- up of her underlying lupus, but it is difficult symptomatically to separate what it is going acutely from her baseline symptoms as she has some chronic weakness from her history of cerebrovascular disease and chronic genitourinary complaints as well too. Additionally, her C4 is elevated and her C-reactive protein is also elevated. For many cases of lupus flares, usually the complements are low but hers is elevated, which may be consistent more with an acute inflammatory process, possibly her resolving urinary tract infection and this may also be contributing to her elevated inflammatory markers although her sed rate in part could be from polyclonal gammopathy. Given her history of hematuria and her history of Cytoxan use, I would also consider checking urine cytology to screen for malignancy as there is some risk for bladder cancer and long after Cytoxan has been discontinued after several years. I will also check her double stranded DNA and given her history of neurologic involvement, cardiolipin antibodies. In terms of her potential lupus flare, she has declined corticosteroids in the recent and remote past. I would agree with holding off on these for now until we definitively identify whether she is truly having a flare. 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 2. In terms of her hypertension, continue supportive care. 3. Status post thyroidectomy. She has a TSH that was checked that was within normal limits on the . 4. Acute urinary tract infection, continue cefuroxime. 5. Chronic renal disease, continue supportive care and I will check the double stranded DNA for her lupus activity. We will continue to follow daily. [id number]/[facility] #: [id number] [facility]ITALScott
[2017-07-15] MEDS: Heparin VIAL(*) 5000 UNITS/ML VIAL (FIVE THOUSAND) SUBCUT SCH ×3 (05:59→21:21)
[2017-07-15] MEDS: CMCS: Nebivolol TAB (NF) 2.5 MG TAB PO SCH (10:22)
[2017-07-15] MEDS: ceFUROXime TAB(*) 250 MG PO SCH ×2 (10:22→21:21)
[2017-07-15] MEDS: Hydroxychloroquine TAB* 200 MG PO SCH ×2 (10:22→17:50)
[2017-07-15] MEDS: PHENobarbital TAB(*) 30 MG PO SCH ×2 (10:23→21:21)
[2017-07-15] MEDS: Gabapentin CAP(*) 300 MG PO SCH ×2 (10:23→21:21)
--- NOTE | 2017-07-15 16:21 | RAD ---
HISTORY: Right-sided hip pain COMPARISONS: June 09, 2017 VIEWS: 1, Single frontal view of the pelvis . The patient is obliqued to the right. FINDINGS: BONE DENSITY: Normal. BONES: The patient is status post bilateral hip arthroplasty. JOINTS: The patient is status post bilateral hip arthroplasty ALIGNMENT: There is no dislocation. SOFT TISSUES: Unremarkable. OTHER FINDINGS: None. IMPRESSION: STATUS POST BILATERAL HIP ARTHROPLASTY
--- NOTE | 2017-07-15 17:47 | PN ---
Subjective Date of Service: 07/15/17 Interval History: Pt feeling well. Her tickling sensation in right foot and achy rib pain have resolved. Diarrhea today x 2 and yesterday x 1. Objective Active Medications: Acetaminophen (Tylenol Tab*) 650 mg PO Q4H PRN PRN Reason: FEVER/PAIN Last Admin: 07/14/17 09:59 Dose: 650 mg Al Hydrox/Mg Hydrox/Simethicone (Maalox Plus*) 30 ml PO Q6H PRN PRN Reason: INDIGESTION Baclofen (Lioresal Tab*) 10 mg PO BID PRN PRN Reason: SPASMS Cefuroxime Axetil (Ceftin Tab(*)) 250 mg PO BID [facility] Last Admin: 07/15/17 10:22 Dose: 250 mg Docusate Sodium (Colace Cap*) 100 mg PO BID PRN PRN Reason: CONSTIPATION Famotidine (Pepcid Tab*) 20 mg PO 2100 [facility] Last Admin: 07/14/17 21:17 Dose: 20 mg Gabapentin (Neurontin Cap(*)) 600 mg PO BID [facility] Last Admin: 07/15/17 10:23 Dose: 600 mg Heparin Sodium (Porcine) (Heparin Vial(*)) 5,000 units SUBCUT Q8HR [facility] Last Admin: 07/15/17 14:46 Dose: 5,000 units Hydroxychloroquine Sulfate (Plaquenil Tab*) 200 mg PO BID WITH MEALS [facility] Last Admin: 07/15/17 10:22 Dose: 200 mg Morphine Sulfate (Morphine Inj (Syringe)*) 2 mg IV Q4H PRN PRN Reason: PAIN - MILD Last Admin: 07/13/17 14:14 Dose: 2 mg Nebivolol (Bystolic Tab (Nf)) 5 mg PO DAILY [facility] Last Admin: 07/15/17 10:22 Dose: 5 mg Ondansetron HCl (Zofran Inj*) 4 mg IV Q4H PRN PRN Reason: NAUSEA/VOMITING Oxycodone/Acetaminophen (Percocet 5/325 Tab*) 1 tab PO Q4H PRN PRN Reason: PAIN Last Admin: 07/13/17 11:48 Dose: 1 tab Phenobarbital (Phenobarbital Tab(*)) 60 mg PO BID [facility] Last Admin: 07/15/17 10:23 Dose: 60 mg Senna (Senokot Tab*) 1 tab PO BID PRN PRN Reason: CONSTIPATION Vital Signs 07/14/17 07/14/17 07/14/17 19:40 19:55 21:18 Temperature 98.5 F Pulse Rate 85 Respiratory 16 16 16 Rate Blood Pressure 124/76 (mmHg) O2 Sat by Pulse 100 100 Oximetry 07/14/17 07/14/17 07/15/17 23:18 23:24 03:18 Temperature 98.3 F 98.4 F Pulse Rate 81 86 Respiratory 16 16 16 Rate Blood Pressure 123/77 122/71 (mmHg) O2 Sat by Pulse 100 100 Oximetry 07/15/17 07/15/17 07/15/17 07:15 08:00 10:23 Temperature 98.3 F Pulse Rate 81 Respiratory 20 16 16 Rate Blood Pressure 140/86 (mmHg) O2 Sat by Pulse 100 100 Oximetry 07/15/17 12:23 Temperature Pulse Rate Respiratory 16 Rate Blood Pressure (mmHg) O2 Sat by Pulse Oximetry Oxygen Devices in Use Now: None Appearance: no acute distress Eyes: No Scleral Icterus, PERRLA Ears/Nose/Mouth/Throat: - - right sided nasolabial droop Neck: NL Appearance and Movements; NL JVP, Trachea Midline Respiratory: Symmetrical Chest Expansion and Respiratory Effort, Clear to Auscultation Cardiovascular: NL Sounds; No Murmurs; No JVD, No Edema Abdominal: NL Sounds; No Tenderness; No Distention, No Hepatosplenomegaly Extremities: No Edema, No Clubbing, Cyanosis Skin: No Rash or Ulcers, No Nodules or Sclerosis Neurological: Alert and Oriented x 3, - - right sided UE contractures (chronic) Result Diagrams: 07/12/17 08:50 07/12/17 08:50 Additional Lab and Data: Lab Results 07/11/17 07/11/17 07/11/17 Range/Units 18:10 18:10 18:10 WBC 9.8 (3.5-10.8) 10^3/ul RBC 3.60 L (4.0-5.4) 10^6/ul Hgb 9.7 L (12.0-16.0) g/dl Hct 30 L (35-47) % MCV 83 (80-97) fL MCH 27 (27-31) pg MCHC 32 (31-36) g/dl RDW 14 (10.5-15) % Plt Count 184 (150-450) 10^3/ul MPV 8 (7.4-10.4) um3 Neut % (Auto) 80.4 (38-83) % Lymph % (Auto) 8.5 L (25-47) % [place] % (Auto) 10.6 H (1-9) % Eos % (Auto) 0.3 (0-6) % Baso % (Auto) 0.2 (0-2) % Absolute Neuts (auto) 7.9 H (1.5-7.7) 10^3/ul Absolute Lymphs (auto) 0.8 L (1.0-4.8) 10^3/ul Absolute Monos (auto) 1.0 H (0-0.8) 10^3/ul Absolute Eos (auto) 0 (0-0.6) 10^3/ul Absolute Basos (auto) 0 (0-0.2) 10^3/ul Absolute Nucleated RBC 0 10^3/ul Nucleated RBC % 0 INR (Anticoag Therapy) 0.97 (0.89-1.11) APTT 27.4 (26.0-36.3) seconds Sodium 131 L (133-145) mmol/L Potassium 4.4 (3.5-5.0) mmol/L Chloride 98 L (101-111) mmol/L Carbon Dioxide 27 (22-32) mmol/L Anion Gap 6 (2-11) mmol/L BUN 21 (6-24) mg/dL Creatinine 1.82 H (0.51-0.95) mg/dL Est GFR ( Amer) 36.8 (>60) Est GFR (Non-Af Amer) 28.6 (>60) BUN/Creatinine Ratio 11.5 (8-20) Glucose 97 (70-100) mg/dL Lactic Acid (0.5-2.0) mmol/L Calcium 9.3 (8.6-10.3) mg/dL Total Bilirubin 0.30 (0.2-1.0) mg/dL AST 13 (13-39) U/L ALT 8 (7-52) U/L Alkaline Phosphatase 44 (34-104) U/L Troponin I 0.00 (<0.04) ng/mL Total Protein 8.1 (6.4-8.9) g/dL Albumin 3.5 (3.2-5.2) g/dL Globulin 4.6 H (2-4) g/dL Albumin/Globulin Ratio 0.8 L (1-3) Triglycerides 78 mg/dL Cholesterol 144 mg/dL LDL Cholesterol 81 mg/dL HDL Cholesterol 47.1 mg/dL Urine Color Urine Appearance Urine pH (5-9) Ur Specific [place] (1.010-1.030) Urine Protein (Negative) Urine Ketones (Negative) Urine Blood (Negative) Urine Nitrate (Negative) Urine Bilirubin (Negative) Urine Urobilinogen (Negative) Ur Leukocyte Esterase (Negative) Urine WBC (Auto) (Absent) Urine RBC (Auto) (Absent) Ur Squamous Epith Cells (Absent) Urine Bacteria (Absent) Urine Glucose (Negative) Blood Type Antibody Screen 07/11/17 07/11/17 07/11/17 Range/Units 18:10 18:10 18:45 WBC (3.5-10.8) 10^3/ul RBC (4.0-5.4) 10^6/ul Hgb (12.0-16.0) g/dl Hct (35-47) % MCV (80-97) fL MCH (27-31) pg MCHC (31-36) g/dl RDW (10.5-15) % Plt Count (150-450) 10^3/ul MPV (7.4-10.4) um3 Neut % (Auto) (38-83) % Lymph % (Auto) (25-47) % [place] % (Auto) (1-9) % Eos % (Auto) (0-6) % Baso % (Auto) (0-2) % Absolute Neuts (auto) (1.5-7.7) 10^3/ul Absolute Lymphs (auto) (1.0-4.8) 10^3/ul Absolute Monos (auto) (0-0.8) 10^3/ul Absolute Eos (auto) (0-0.6) 10^3/ul Absolute Basos (auto) (0-0.2) 10^3/ul Absolute Nucleated RBC 10^3/ul Nucleated RBC % INR (Anticoag Therapy) (0.89-1.11) APTT (26.0-36.3) seconds Sodium (133-145) mmol/L Potassium (3.5-5.0) mmol/L Chloride (101-111) mmol/L Carbon Dioxide (22-32) mmol/L Anion Gap (2-11) mmol/L BUN (6-24) mg/dL Creatinine (0.51-0.95) mg/dL Est GFR ( Amer) (>60) Est GFR (Non-Af Amer) (>60) BUN/Creatinine Ratio (8-20) Glucose (70-100) mg/dL Lactic Acid 1.0 (0.5-2.0) mmol/L Calcium (8.6-10.3) mg/dL Total Bilirubin (0.2-1.0) mg/dL AST (13-39) U/L ALT (7-52) U/L Alkaline Phosphatase (34-104) U/L Troponin I (<0.04) ng/mL Total Protein (6.4-8.9) g/dL Albumin (3.2-5.2) g/dL Globulin (2-4) g/dL Albumin/Globulin Ratio (1-3) Triglycerides mg/dL Cholesterol mg/dL LDL Cholesterol mg/dL HDL Cholesterol mg/dL Urine Color Yellow Urine Appearance Cloudy Urine pH 8.0 (5-9) Ur Specific [place] 1.008 L (1.010-1.030) Urine Protein 2+(100 mg/dl) H (Negative) Urine Ketones Negative (Negative) Urine Blood Negative (Negative) Urine Nitrate Negative (Negative) Urine Bilirubin Negative (Negative) Urine Urobilinogen Negative (Negative) Ur Leukocyte Esterase 3+ H (Negative) Urine WBC (Auto) 3+(>20/hpf) H (Absent) Urine RBC (Auto) 2+(6-10/hpf) H (Absent) Ur Squamous Epith Cells Present H (Absent) Urine Bacteria 1+ H (Absent) Urine Glucose Negative (Negative) Blood Type O Negative Antibody Screen Negative Assess/Plan/Problems-Billing Assessment: 57 year old female PMH SLE, CVA presenting with right sided rib pain and right foot "tickling". RICH. Ecoli UTI. - Patient Problems (1) UTI (urinary tract infection) Current Visit: Yes Status: Acute Comment: Ecoli UTI > 100,000. sens all antibiotics tested. s/p ceftriaxone 07/13, now po cefuroxime PM 07/14. (2) Elevated serum creatinine Current Visit: No Status: Acute Code(s): R79.89 - OTHER SPECIFIED ABNORMAL FINDINGS OF BLOOD CHEMISTRY SNOMED Code(s): 397402244 Comment: OPEN HEARTH DOOR LINER 1.8 on admission -> 1.6. baseline ~1.2-1.3. Repeat BMP ordered for 07/15 (3) CKD (chronic kidney disease) stage 3, GFR 30-59 ml/min Current Visit: Yes Status: Acute Code(s): N18.3 - CHRONIC KIDNEY DISEASE, STAGE 3 (MODERATE) SNOMED Code(s): 383650072 Comment: RICH on CKD, repeat BMP (4) Rib pain on right side Current Visit: Yes Status: Acute Code(s): R07.81 - PLEURODYNIA SNOMED Code (s): 939768170 Comment: resolved (5) Hematuria Current Visit: Yes Status: Acute Code(s): R31.9 - HEMATURIA, UNSPECIFIED SNOMED Code(s): 44671252 Comment: Hx of cytoxan use. Urine cytology per Dr. Lebron (6) History of CVA (cerebrovascular accident) Current Visit: Yes Status: Acute Code(s): Z86.73 - PRSNL HX OF TIA (TIA), AND CEREB INFRC W/O RESID DEFICITS SNOMED Code(s): 122710830 Comment: left MCA territory. uses cane to ambulate. Contractures on right side. MRI negative (7) Hypertension Current Visit: No Status: Chronic Code(s): I10 - ESSENTIAL (PRIMARY) HYPERTENSION SNOMED Code(s): 18343389 Comment: Continue nebivolol. (8) Lupus Current Visit: No Status: Chronic Priority: High Code(s): M32.9 - SYSTEMIC LUPUS ERYTHEMATOSUS, UNSPECIFIED SNOMED Code(s): 53336060 Comment: ESR 120 and CRP elevatated but on other hand C4 elevated. Patient refused prednisone (hx of avascular necrosis). Continue analgesics PRN. Appreciate Dr. Lebron recs. On plaquenil. (9) Seizure Current Visit: No Status: Chronic Priority: Medium Code(s): R56.9 - UNSPECIFIED CONVULSIONS SNOMED Code(s): 66784009 Comment: Continue phenobarbital. Level 28.3 on 07/11/17. Status and Disposition: Medicine inpatient, discharge tomorrow 07/16, likely back to home [facility] with [facility] Attending: Philip Gray
--- NOTE | 2017-07-15 18:59 | PN ---
Subjective - Subjective History: Overall feeling better; hip pain is gradually improved. Active Problems: Active Problems CKD (chronic kidney disease) stage 3, GFR 30-59 ml/min (Acute) N18.3 RICH on CKD, repeat BMP Hematuria (Acute) R31.9 Hx of cytoxan use. Urine cytology per Dr. Lebron History of CVA (cerebrovascular accident) (Acute) Z86.73 left MCA territory. uses cane to ambulate. Contractures on right side. MRI negative Rib pain on right side (Acute) R07.81 resolved UTI (urinary tract infection) (Acute) Ecoli UTI > 100,000. sens all antibiotics tested. s/p ceftriaxone 07/13, now po cefuroxime PM 07/14. Current Medications: Current Medications Acetaminophen (Tylenol Tab*) 650 mg PO Q4H PRN PRN Reason: FEVER/PAIN Last Admin: 07/14/17 09:59 Dose: 650 mg Al Hydrox/Mg Hydrox/Simethicone (Maalox Plus*) 30 ml PO Q6H PRN PRN Reason: INDIGESTION Baclofen (Lioresal Tab*) 10 mg PO BID PRN PRN Reason: SPASMS Cefuroxime Axetil (Ceftin Tab(*)) 250 mg PO BID [facility] Last Admin: 07/15/17 10:22 Dose: 250 mg Docusate Sodium (Colace Cap*) 100 mg PO BID PRN PRN Reason: CONSTIPATION Famotidine (Pepcid Tab*) 20 mg PO 2100 [facility] Last Admin: 07/14/17 21:17 Dose: 20 mg Gabapentin (Neurontin Cap(*)) 600 mg PO BID [facility] Last Admin: 07/15/17 10:23 Dose: 600 mg Heparin Sodium (Porcine) (Heparin Vial(*)) 5,000 units SUBCUT Q8HR [facility] Last Admin: 07/15/17 14:46 Dose: 5,000 units Hydroxychloroquine Sulfate (Plaquenil Tab*) 200 mg PO BID WITH MEALS [facility] Last Admin: 07/15/17 17:50 Dose: 200 mg Morphine Sulfate (Morphine Inj (Syringe)*) 2 mg IV Q4H PRN PRN Reason: PAIN - MILD Last Admin: 07/13/17 14:14 Dose: 2 mg Nebivolol (Bystolic Tab (Nf)) 5 mg PO DAILY [facility] Last Admin: 07/15/17 10:22 Dose: 5 mg Ondansetron HCl (Zofran Inj*) 4 mg IV Q4H PRN PRN Reason: NAUSEA/VOMITING Oxycodone/Acetaminophen (Percocet 5/325 Tab*) 1 tab PO Q4H PRN PRN Reason: PAIN Last Admin: 07/13/17 11:48 Dose: 1 tab Phenobarbital (Phenobarbital Tab(*)) 60 mg PO BID [facility] Last Admin: 07/15/17 10:23 Dose: 60 mg Senna (Senokot Tab*) 1 tab PO BID PRN PRN Reason: CONSTIPATION - Review of Systems Constitutional Symptoms: Yes: Fatigue, No: Weight Gain, Weight Loss, Night Sweats Dermatology: Normal: No HEENT: No Normal Eyes: Positive: Normal Pulmonary: Positive: Normal Cardiology: Positive: Normal Gastroenterology: Positive: Normal Genital - Urinary: Positive: Hematuria Musculoskeletal: Positive: Joint Stiffness, Kyphoscoliosis Endocrinology: Positive: Normal Neurology: Positive: Hx of Stroke\TIA Psychiatry: Positive: Normal Allergic/Immunologic: Positive: Immunocompromise Home Medications: Home Medications Medication Instructions Recorded Confirmed Type PHENobarbital TAB(*) 64.8 mg PO BID 09/07/13 07/11/17 History Calcium Carbonate-Vitamin D 1 tab PO BID 10/29/16 07/11/17 History [Calcium 600 + D 600-400 mg-Unit] Famotidine TAB* [Pepcid 20 MG TAB*] 20 mg PO 2100 10/29/16 07/11/17 History Gabapentin TAB(NF) [Neurontin 600 600 mg PO BID 10/29/16 07/11/17 History mg TAB(NF)] Baclofen TAB* [Lioresal TAB*] 20 mg PO BID PRN #40 tab 04/03/17 07/11/17 Rx Hydroxychloroquine TAB* [Plaquenil 200 mg PO BID WITH MEALS tab 04/03/17 Rx TAB*] Nebivolol TAB (NF) [Bystolic TAB 5 mg PO DAILY tab 04/03/17 07/11/17 Rx (NF)] amLODIPine TAB* [Norvasc 5 mg TAB*] 5 mg PO DAILY tab 04/03/17 07/11/17 Rx oxyCODONE/Acetamin 5/325 MG* 1 - 2 tab PO Q4H PRN #60 tab MDD 6 04/03/17 Rx [Percocet 5/325 TAB*] Warfarin TAB(*) [Coumadin TAB(*)] 6 mg PO DAILY@1700 #20 tab 04/04/17 07/11/17 Rx Allergies: Allergies Allergy/AdvReac Type Severity Reaction Status Date / Time Fentanyl Allergy Severe rash, Verified 07/11/17 22:09 hives, itchy Sulfa Antibiotics Allergy Severe Facial Verified 07/11/17 22:09 Redness/Flushing Nitrofurantoin AdvReac Unknown Verified 07/11/17 22:09 Reaction Details Objective - Vital Signs Vital Signs: Vital Signs 07/14/17 07/14/17 07/14/17 19:40 19:55 21:18 Temperature 98.5 F Pulse Rate 85 Respiratory 16 16 16 Rate Blood Pressure 124/76 (mmHg) O2 Sat by Pulse 100 100 Oximetry 07/14/17 07/14/17 07/15/17 23:18 23:24 03:18 Temperature 98.3 F 98.4 F Pulse Rate 81 86 Respiratory 16 16 16 Rate Blood Pressure 123/77 122/71 (mmHg) O2 Sat by Pulse 100 100 Oximetry 07/15/17 07/15/17 07/15/17 07:15 08:00 10:23 Temperature 98.3 F Pulse Rate 81 Respiratory 20 16 16 Rate Blood Pressure 140/86 (mmHg) O2 Sat by Pulse 100 100 Oximetry 07/15/17 12:23 Temperature Pulse Rate Respiratory 16 Rate Blood Pressure (mmHg) O2 Sat by Pulse Oximetry - Intake and Output Intake and Output: Intake & Output 07/13/17 07/14/17 07/15/17 07/16/17 06:59 06:59 06:59 06:59 Intake Total 563 1969 1210 440 Output Total 0 Balance 563 1969 1210 440 Intake: IV Fluids 563 1550 D5W 1/2 NS 563 1550 IVPB 55 D5W 1/2 NS 55 Oral 0 365 1210 440 Output: Urine 0 Other: Estimated Void Medium Medium Medium Small # Bowel Movements 0 0 0 # Voids 1 1 2 1 ADLs: Meal Record Start: 07/11/17 23: 53 Freq: DAILY@0900,1400,1800 Status: Active Created 07/11/17 23:53 System (Rec: 07/11/17 23:53 System TELE-C32) Document 07/12/17 09:07 [id number] (Rec: 07/12/17 09:07 [id number] TELE-C01) Document 07/12/17 14:13 [id number] (Rec: 07/12/17 14:13 [id number] TELE-C01) Document 07/12/17 18:00 [id number] (Rec: 07/12/17 22:11 [id number] TELE-C01) Document 07/13/17 09:00 [id number] (Rec: 07/13/17 11:46 [id number] TELE-C05) Document 07/13/17 14:00 [id number] (Rec: 07/13/17 16:23 [id number] TELE-C07) Document 07/13/17 18:00 [id number] (Rec: 07/13/17 19:17 [id number] TELE-C07) Document 07/14/17 09:00 [id number] (Rec: 07/14/17 10:23 [id number] TELE-C01) Document 07/14/17 14:00 [id number] (Rec: 07/14/17 14:19 [id number] TELE-C01) Document 07/14/17 18:00 [id number] (Rec: 07/14/17 18:49 [id number] TELE-C01) Document 07/15/17 10:26 [id number] (Rec: 07/15/17 10:27 [id number] TELE-C01) Document 07/15/17 14:03 [id number] (Rec: 07/15/17 14:03 [id number] TELE-C05) Intake and Output Start: 07/11/17 23: 53 Freq: DAILY@0600,1400,2200 Status: Active Created 07/11/17 23:53 System (Rec: 07/11/17 23:53 System TELE-C32) Document 07/12/17 04:35 [id number] (Rec: 07/12/17 04:35 [id number] TELE-C01) Document 07/12/17 13:29 [id number] (Rec: 07/12/17 13:29 [id number] TELE-C01) Document 07/12/17 22:00 [id number] (Rec: 07/12/17 22:18 [id number] TELE-C01) Document 07/13/17 06:00 [id number] (Rec: 07/13/17 06:22 [id number] TELE-C35) Document 07/13/17 14:00 [id number] (Rec: 07/13/17 16:23 [id number] TELE-C07) Document 07/13/17 22:00 [id number] (Rec: 07/13/17 22:24 [id number] TELE-C10) Document 07/14/17 06:00 [id number] (Rec: 07/14/17 06:42 [id number] TELE-C34) Document 07/14/17 14:00 [id number] (Rec: 07/14/17 18:41 [id number] TELE-C06) Document 07/14/17 20:11 [id number] (Rec: 07/14/17 20:12 [id number] TELE-C01) Document 07/14/17 22:00 [id number] (Rec: 07/14/17 22:43 [id number] TELE-C35) Document 07/15/17 06:00 [id number] (Rec: 07/15/17 06:25 [id number] TELE-C01) Document 07/15/17 10:25 [id number] (Rec: 07/15/17 10:25 [id number] TELE-M04) Document 07/15/17 13:40 [id number] (Rec: 07/15/17 13:40 [id number] TELE-C01) - Physical Exam General Physical Exam Comment: No acute distress; sitting up Eye Exam: bilateral: PERRLA, EOMI Head: Yes Normocephalic Throat/Oropharyx Exam: Bilateral: Normal Thyroid Function: Clinically Euthyroid Lungs and Chest: Yes: Chest Expansion Full, Chest Expansion Symetrica Heart Rate and Rhythm: Regular JVP: Not Elevated [place] Beat: Non Displaced Additional Cardiovascular: Yes: [place] Beat not Displaced, Normal Heart Sounds Abdominal Exam: Yes: Soft - Rheumotological System Joints: Signs of Connective Tissue Disease Additional Musculoskeletal: Kyphosis - Extremities Posterior Tibial Pulse: Bilateral Normal Dorsalis Pedis Pulses: Bilateral Normal Limbs: Abnormal Power, Abnormal Coordination - Neuro Psychiatric: Normal, Affect/Mood Appropriate Speech: Normal, Dysarthria Assessment - Problem List Assessment: Patient Problems CKD (chronic kidney disease) stage 3, GFR 30-59 ml/min (Acute) Hematuria (Acute) History of CVA (cerebrovascular accident) (Acute) Rib pain on right side (Acute) UTI (urinary tract infection) (Acute) DVT prophylaxis (Acute 04/19/15) Elevated serum creatinine (Acute) Full code status (Acute 04/19/15) Hypokalemia (Acute) Intractable pain (Acute) S/P hip replacement (Acute 01/18/16) S/P thyroidectomy (Acute 04/19/15) S/P total hip arthroplasty (Acute 01/16/16) Syncope (Acute) Thyroid nodule (Acute) Chronic pain (Chronic) GERD (gastroesophageal reflux disease) (Chronic) Hemiplegia affecting dominant side (Chronic) History of CVA with residual deficit (Chronic) Hypertension (Chronic) Lupus (Chronic) MRSA (methicillin resistant staph aureus) culture positive (Chronic) SLE ([place] encephalitis) (Chronic) Seizure (Chronic) Severe low back pain (Chronic 11/07/14) Unable to ambulate (Chronic 11/07/14) Plan: Lupus: DSDNA pending. On Plaquenil. Hematuria: will need follow up UTI: Improving
[2017-07-15] MEDS: Famotidine TAB* 20 MG PO SCH (21:21)
[2017-07-16] MEDS: Heparin VIAL(*) 5000 UNITS/ML VIAL (FIVE THOUSAND) SUBCUT SCH (06:07)
[2017-07-16 08:52] VITALS: BP 138/87
[2017-07-16] MEDS: PHENobarbital TAB(*) 30 MG PO SCH (09:35)
[2017-07-16] MEDS: Gabapentin CAP(*) 300 MG PO SCH (09:37)
[2017-07-16] MEDS: CMCS: Nebivolol TAB (NF) 2.5 MG TAB PO SCH (09:37)
[2017-07-16] MEDS: ceFUROXime TAB(*) 250 MG PO SCH ×2 (09:37→15:20)
[2017-07-16] MEDS: Hydroxychloroquine TAB* 200 MG PO SCH (09:38)
[2017-07-16 21:11] LABS: Phospholipid Ab IgG < 9.4 GPL; Phospholipid Ab IgM, S < 9.4 MPL
[2017-07-17] MEDS ORDERED: Influenza VAC *QUAD* 2017-18* 0.5 ML SYRINGE IM ONE (09:00)
--- NOTE | 2017-07-17 14:53 | DS ---
DISCHARGE SUMMARY: DATE OF ADMISSION: 07/11/17 DATE OF DISCHARGE: 07/16/17 ADMITTING PROVIDER: Ada Rendon DO. PRIMARY CARE PHYSICIAN: Nabila Barrera MD. ATTENDING PHYSICIANS: Philip Gray MD and Jonathon Santillan MD. CHIEF COMPLAINT: Right sided rib pain and right sided foot paresthesias. PRINCIPAL DIAGNOSIS: Urinary tract infection. HISTORY OF PRESENT ILLNESS: This is a 57-year-old female with past medical history of lupus, left MCA infarct, seizure disorder, hypertension, history of Cytoxan use for lupus who presents with 3 days of right sided rib pain. Please refer to H and P of 07/11/17 for further details. Right foot also had some muscle spasms feeling very tight and was later described as tickling sensation. Of note, she does have baseline right-sided weakness with some contractures on the right side of her body, uses walker to ambulate. She denies any word finding difficulties or altered mental status, had a frontal headache for the past 5 days on and off. She had some near-falling episodes with weakness. CT of the brain on admission demonstrated old left MCA infarct, but no acute findings. Urinalysis on admission showed 3+ leukocyte esterase, 3+ wbc's, 1+ urine bacteria, urine culture was positive for E.coli and was massey sensitive. The patient was initially treated with IV ceftriaxone and transitioned to Ceftin for a total antibiotic course of 7 days. [employer], Dr. Lebron was consulted and with concern of somewhat vague symptoms, concern for potential lupus flare. Of note, complement C4 was actually elevated at 41. Complement C3 within normal limits at 153. C-reactive protein elevated at 229. ESR was elevated at 120. Proteinase-3 Ab below 0.2, myeloperoxidase antibody below 0.2. Pkgb-tjjrmg-yvjnhzvw DNA, IgG antibody below 12.3. Anticardiolipin IgG and IgM antibodies below 9.4. CMV IgG antibody positive. IgM antibody negative. The patient's symptoms improved and she was eager to return home to [facility]. On the day of discharge, the patient suspected to noting some blood per rectum, trace amounts and reported history of hemorrhoids. The patient continued her Plaquenil, given the history of Cytoxan use and hematuria on admission (of note, although also with active urinary tract infection.) Dr. Lebron recommended outpatient followup. DISCHARGE MEDICATIONS: Included: 1. Baclofen 20 mg p.o. b.i.d. 2. Famotidine 20 mg p.o. daily. 3. Gabapentin 600 mg p.o. b.i.d. 4. Plaquenil 200 mg p.o. b.i.d. with meals. 5. Nebivolol 5 mg p.o. daily. 6. Phenobarbital tab 64.8 mg p.o. b.i.d. 7. Ceftin 250 mg p.o. b.i.d. for additional 7 doses for a total course of 7 days. 8. Percocet 1 to 2 tabs p.o. q.4 to 8 hours p.r.n. for pain. 9. Warfarin 6 mg p.o. daily. 10. Senna tab 1 tab p.o. b.i.d. 11. Docusate 100 mg p.o. b.i.d. DISCHARGE DISPOSITION: Home to [facility]. DIET: Regular, unchanged. FOLLOWUP: Pt needs to followup with Dr. Nabila Barrera and Dr. Lebron. [id number]/CPS #: [id number] [facility]ITALScott
== END 2017-07-16 15:25 | disposition home health service (06) | DRG 690 ==
LOC: ED 16:45 → MEDTELE 21:52 → OBSVTOIN 07-12 20:57
PROVIDERS: ADMIT Pediatrics; ATTEND Internal Medicine
DX: N39.0 Urinary tract infection, site not specified (principal); M32.10 Systemic lupus erythematosus, organ or system involvement unspecified; N17.9 Acute kidney failure, unspecified; N18.3 Chronic kidney disease, stage 3 (moderate); I69.351 Hemiplegia and hemiparesis following cerebral infarction affecting right dominant side; G40.909 Epilepsy, unspecified, not intractable, without status epilepticus; E89.0 Postprocedural hypothyroidism; K21.9 Gastro-esophageal reflux disease without esophagitis; K44.9 Diaphragmatic hernia without obstruction or gangrene; M19.012 Primary osteoarthritis, left shoulder; M19.011 Primary osteoarthritis, right shoulder; M85.80 Other specified disorders of bone density and structure, unspecified site; H91.91 Unspecified hearing loss, right ear; G43.909 Migraine, unspecified, not intractable, without status migrainosus; Z96.643 Presence of artificial hip joint, bilateral; I12.9 Hypertensive chronic kidney disease with stage 1 through stage 4 chronic kidney disease, or unspecified chronic kidney disease; B96.20 Unspecified Escherichia coli [E. coli] as the cause of diseases classified elsewhere; R31.9 Hematuria, unspecified; R07.81 Pleurodynia; K64.9 Unspecified hemorrhoids; Z86.14 Personal history of Methicillin resistant Staphylococcus aureus infection; Z88.5 Allergy status to narcotic agent; Z88.2 Allergy status to sulfonamides; Z88.1 Allergy status to other antibiotic agents; Z82.3 Family history of stroke; Z87.440 Personal history of urinary (tract) infections; Z90.710 Acquired absence of both cervix and uterus; Z90.721 Acquired absence of ovaries, unilateral; Z82.49 Family history of ischemic heart disease and other diseases of the circulatory system; Z83.3 Family history of diabetes mellitus; Z79.01 Long term (current) use of anticoagulants
CPT/HCPCS: 36415; 70450; 71010; 72170; 76775; 80048; 80053; 80061; 80184; 81003; 81015; 83516; 83605; 83735; 84443; 84484; 85025; 85610; 85652; 85730; 86140; 86147; 86160; 86225; 86644; 86645; 86850; 86900; 86901; 87077; 87086; 87186; 93005; A9270-GY; G0378; G8978-GP-CM; G8979-GP-CI; J0696; J1644; J2270

== ENCOUNTER 2018-01-16 16:10 | Emergency (ER) | payer MEDICARE, MEDICAID ==
[2018-01-16] MEDS ORDERED: NS 0.9% 1000 ML* 1,000 ML IV ONE (16:44)
[2018-01-16 17:04] LABS: ABS Basophils 0 10^3/ul (0-0.2); ABS Eosinophils 0.1 10^3/ul (0-0.6); ABS Monocytes 0.2 10^3/ul (0-0.8); ABS Neutrophils 1.3 10^3/ul (1.5-7.7); ABS Nucleated RBC 0 10^3/ul; Hematocrit 33 % (35-47); Mean Corpuscular HGB Conc 33 g/dl (31-36); Mean Corpuscular Hemoglobin 28 pg (27-31); Mean Corpuscular Volume 85 fL (80-97); Mean Platelet Volume 7.6 um3 (7.4-10.4); Nucleated Red Blood Cells % 0.1; Platelet Count 191 10^3/ul (150-450); Red Blood Count 3.93 10^6/ul (4.0-5.4); Red Cell Distribution Width 14 % (10.5-15); White Blood Count 2.6 10^3/ul (3.5-10.8)
[2018-01-16 17:14] LABS: INR 0.85 (0.77-1.02)
[2018-01-16 17:18] LABS: EGFR Non-African American 36.6 (>60)
[2018-01-16 17:37] LABS: Urine Appearance Clear; Urine Blood Negative (Negative); Urine Color Straw; Urine Ketones Negative (Negative); Urine Protein 2+(100 mg/dL) (Negative); Urine Specific Gravity 1.004 (1.010-1.030); Urine Urobilinogen Negative (Negative)
[2018-01-16] MEDS ORDERED: Morphine INJ* 4 MG/ML 1 ML SYRINGE (NEW SYRINGE VERSION) IM ONE (17:50)
[2018-01-16] MEDS ORDERED: Iodixanol* (CONTRAST) 320 MG/ML 100 ML SDV IV ONE (17:51)
--- NOTE | 2018-01-16 18:37 | RAD ---
CLINICAL HISTORY: Left lower quadrant tenderness COMPARISON: November 07, 2014 TECHNIQUE: Multiple contiguous axial CT scans were obtained of the abdomen and pelvis, without intravenous contrast enhancement. Coronal and sagittal multiplanar reformations are submitted for review. Oral contrast was not administered. FINDINGS: The study is limited by the lack of intravenous contrast. This limits evaluation of the solid organs and vasculature. Evaluation of the pelvis is also limited by streak artifact from bilateral hip prostheses. LUNG BASES: The lung bases are clear. LIVER: The liver is normal in shape, size, contour, and attenuation. BILE DUCTS: There is dilatation of the common duct up to 1.2 cm. There is mild intrahepatic biliary dilatation. This can be identified on the previous examination and is stable from the 2015 examination. GALLBLADDER: The gallbladder is not visualized. Surgical clips are noted in the gallbladder fossa. . PANCREAS: The pancreas is normal, without mass or ductal dilatation. SPLEEN: Normal in size and appearance. UPPER GI TRACT: Evaluation of the gastrointestinal tract is limited by incomplete gastric distention. There is a moderate hiatal hernia. SMALL BOWEL AND MESENTERY: The small bowel is normal in contour, course, and caliber. There is no obstruction or dilatation. COLON: The colon is normal in contour, course, caliber. There is no pericolonic inflammatory change. Evaluation of the distal sigmoid colon and rectum is limited by streak artifact from bilateral hip arthroplasty. ADRENALS: Normal bilaterally. KIDNEYS: The kidneys are normal in shape, size, contour, and axis. There is no hydronephrosis or nephrolithiasis. Evaluation of the distal ureters is limited by streak artifact from bilateral hip arthroplasty. BLADDER: Evaluation the bladder is limited by streak artifact from bilateral hip arthroplasty. The visualized portion of the bladder is unremarkable. PELVIC ORGANS: Not seen. Evaluation of the pelvis is limited by bilateral hip arthroplasty. AORTA: There is calcific atherosclerotic disease of the abdominal aorta and its branches, without aneurysmal dilatation IVC: Unremarkable LYMPH NODES: There is no lymphadenopathy by size criteria. ABDOMINAL WALL: There is no evidence for abdominal wall hernia. BONES AND SOFT TISSUES: There is a scoliotic curvature of the spine. The patient is status post bilateral hip arthroplasty. There is a bone island of the right iliac wing, stable from 2015. OTHER: None IMPRESSION: 1. STABLE BILIARY DILATATION. 2. HIATAL HERNIA. 3. ATHEROSCLEROSIS. 4. EVALUATION OF THE PELVIC ORGANS, DISTAL URETERS, BLADDER, DISTAL SIGMOID COLON AND RECTUM, IS LIMITED BY STREAK ARTIFACT FROM BILATERAL HIP ARTHROPLASTY.,
[2018-01-16] MEDS ORDERED: Levofloxacin TAB* 500 MG PO ONE (19:41)
[2018-01-16 19:55] VITALS: BP 151/82
--- NOTE | 2018-01-16 20:10 | ED ---
Edie Emerson Gabriel, scribed for Servando Varela on 01/16/18 at 1635 . Abdominal Pain/Female - HPI Summary HPI Summary: This patient is a 57 year old F BIBA to [facility] with a chief complaint of LLQ pain since 14:00 today. The patient rates the pain 5/10 in severity. Patient reports constipation. Patient denies n/v and fever. Hx right sided CVA. - History of Current Complaint Chief Complaint: EDAbdPain Stated Complaint: ABD PAIN Time Seen by Provider: 01/16/18 16:20 Hx Obtained From: Patient Onset/Duration: Lasting Hours - 2, Still Present Timing: Constant Severity Initially: Moderate Severity Currently: Moderate Pain Intensity: 5 Pain Scale Used: 0-10 Numeric Location: Discrete At: LLQ Allergies/Adverse Reactions: Allergies Allergy/AdvReac Type Severity Reaction Status Date / Time MS Fentanyl [Fentanyl] Allergy Severe rash, Verified 07/11/17 22:09 hives, itchy MS Sulfa Antibiotics Allergy Severe Facial Verified 07/11/17 22:09 [Sulfa Antibiotics] Redness/Flushing MS Baclofen [Baclofen] AdvReac Intermediate Altered Verified 09/02/17 12:02 Mental Status MS Nitrofurantoin AdvReac Unknown Verified 07/11/17 22:09 [Nitrofurantoin] Reaction Details PMH/Surg Hx/FS Hx/Imm Hx Endocrine/Hematology History: Reports: Hx Systemic Lupus Erythematosus, Hx Thyroid Disease - RIGHT LOBE THYROID IS ENLARGED, Denies: Hx Anticoagulant Therapy, Hx Bone Marrow Disease, Hx Diabetes, Hx Sickle Cell Disease, Hx Anemia Cardiovascular History: Reports: Hx Deep Vein Thrombosis, Hx Hypertension Denies: Hx Congestive Heart Failure, Hx Pacemaker/ICD, Other Cardiovascular Problems/Disorders Respiratory History: Denies: Hx Asthma, Hx Pulmonary Embolism, Hx Sleep Apnea, Other Respiratory Problems/Disorders GI History: Reports: Hx Gastroesophageal Reflux Disease - on meds, Hx Hiatal Hernia Denies: Hx Jaundice History: Reports: Hx Chronic Renal Failure, Hx Kidney Infection, Other Problems/Disorders - UTI, vag abscess. SEES DR. Lozano ABOUT KIDNEYS Denies: Hx Renal Disease Musculoskeletal History: Reports: Hx Arthritis - SHOULDERS, Hx Back Problems - pain, Other Musculoskeletal History - osteopenia, r hip pain x 1 year, l hip hemiarthroplasty Denies: Hx Tendonitis Sensory History: Reports: Hx Deafness - [place] in right ear, Hx Hearing Problem - right hear clogged Denies: Hx Cataracts, Hx Contacts or Glasses, Hx Glaucoma, Hx Hearing Aid Opthamlomology History: Denies: Hx Cataracts, Hx Contacts or Glasses, Hx Glaucoma Neurological History: Reports: Hx CVA - with right hemiplegia , Hx Migraine - ~ 1 MONTH AGO, HAPPENS OCCASIONALLY, Hx Seizures, Hx Transient Ischemic Attacks ( TIA), Other Neuro Impairments/Disorders - cva lupus migranes; 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 Denies: Hx Nerve Disease Psychiatric History: Denies: Hx Anxiety, Hx Depression, Hx Panic Disorder - Cancer History Hx Chemotherapy: No Hx Radiation Therapy: No - Surgical History Surgery Procedure, Year, and Place: BILATERAL hip replacement, hysterectomy, one ovary removed; VAGINAL ABSCESS I&D, STROKE 1986 Hx Anesthesia Reactions: No - Immunization History Date of Tetanus Vaccine: unk Date of Influenza Vaccine: unk Infectious Disease History: Yes Infectious Disease History: Reports: Hx of Known/Suspected MRSA - patient does not remember, Hx Shingles Denies: Hx Hepatitis, Traveled Outside the [place] in Last 30 Days - Family History Known Family History: Positive: Unknown, Cardiac Disease, Hypertension, Diabetes - Social History Alcohol Use: None Hx Substance Use: No Substance Use Type: Reports: None Hx Tobacco Use: No Smoking Status (MU): Former Smoker Amount Used/How Often: only smoked for weeks Have You Smoked in the Last Year: No Review of Systems Negative: Fever Positive: Abdominal Pain, Other - constipation. . Negative: Vomiting, Diarrhea , Nausea All Other Systems Reviewed And Are Negative: Yes Physical Exam - Summary Physical Exam Summary: Appearance: Well appearing, no pain distress Skin: warm, dry, reflects adequate perfusion Head/face: normal Eyes: EOMI, ANDREI ENT: normal Neck: supple, non-tender Respiratory: CTA, breath sounds present Cardiovascular: RRR, pulses symmetrical Abdomen: soft and LLQ is TTP Bowel: present Musculoskeletal: normal, strength/ROM intact Neuro: normal, sensory motor intact, A&Ox3 Left hemiparesis Triage Information Reviewed: Yes Vital Signs On Initial Exam: Initial Vitals Temp Pulse Resp BP Pulse Ox 99.3 F 80 18 152/91 98 01/16/18 16:19 01/16/18 16:19 01/16/18 16:19 01/16/18 16:19 01/16/18 16:19 Vital Signs Reviewed: Yes Diagnostics - Vital Signs Vital Signs Temp Pulse Resp BP Pulse Ox 01/16/18 16:19 99.3 F 80 18 152/91 98 - Laboratory Lab Results: Lab Results 01/16/18 01/16/18 01/16/18 Range/Units 16:08 16:08 16:08 WBC 2.6 L (3.5-10.8) 10^3/ul RBC 3.93 L (4.0-5.4) 10^6/ul Hgb 11.0 L (12.0-16.0) g/dl Hct 33 L (35-47) % MCV 85 (80-97) fL MCH 28 (27-31) pg MCHC 33 (31-36) g/dl RDW 14 (10.5-15) % Plt Count 191 (150-450) 10^3/ul MPV 7.6 (7.4-10.4) um3 Neut % (Auto) 51.4 (38-83) % Lymph % (Auto) 38.0 (25-47) % [place] % (Auto) 7.6 H (0-7) % Eos % (Auto) 2.0 (0-6) % Baso % (Auto) 1.0 (0-2) % Absolute Neuts (auto) 1.3 L (1.5-7.7) 10^3/ul Absolute Lymphs (auto) 1.0 (1.0-4.8) 10^3/ul Absolute Monos (auto) 0.2 (0-0.8) 10^3/ul Absolute Eos (auto) 0.1 (0-0.6) 10^3/ul Absolute Basos (auto) 0 (0-0.2) 10^3/ul Absolute Nucleated RBC 0 10^3/ul Nucleated RBC % 0.1 INR (Anticoag Therapy) 0.85 (0.77-1.02) APTT 30.1 (26.0-36.3) seconds Sodium 135 (133-145) mmol/L Potassium 4.2 (3.5-5.0) mmol/L Chloride 101 (101-111) mmol/L Carbon Dioxide 29 (22-32) mmol/L Anion Gap 5 (2-11) mmol/L BUN 11 (6-24) mg/dL Creatinine 1.47 H (0.51-0.95) mg/dL Est GFR ( Amer) 47.1 (>60) Est GFR (Non-Af Amer) 36.6 (>60) BUN/Creatinine Ratio 7.5 L (8-20) Glucose 79 (70-100) mg/dL Lactic Acid (0.5-2.0) mmol/L Calcium 9.4 (8.6-10.3) mg/dL Total Bilirubin 0.30 (0.2-1.0) mg/dL AST 20 (13-39) U/L ALT 11 (7-52) U/L Alkaline Phosphatase 46 (34-104) U/L Troponin I 0.00 (<0.04) ng/mL C-Reactive Protein 2.01 (< 5.00) mg/L Total Protein 7.9 (6.4-8.9) g/dL Albumin 4.3 (3.2-5.2) g/dL Globulin 3.6 (2-4) g/dL Albumin/Globulin Ratio 1.2 (1-3) Lipase 193 H (11.0-82.0) U/L Urine Color Urine Appearance Urine pH (5-9) Ur Specific [place] (1.010-1.030) Urine Protein (Negative) Urine Ketones (Negative) Urine Blood (Negative) Urine Nitrate (Negative) Urine Bilirubin (Negative) Urine Urobilinogen (Negative) Ur Leukocyte Esterase (Negative) Urine WBC (Auto) (Absent) Urine RBC (Auto) (Absent) Ur Squamous Epith Cells (Absent) Urine Bacteria (Absent) Urine Glucose (Negative) 01/16/18 01/16/18 Range/Units 16:08 17:10 WBC (3.5-10.8) 10^3/ul RBC (4.0-5.4) 10^6/ul Hgb (12.0-16.0) g/dl Hct (35-47) % MCV (80-97) fL MCH (27-31) pg MCHC (31-36) g/dl RDW (10.5-15) % Plt Count (150-450) 10^3/ul MPV (7.4-10.4) um3 Neut % (Auto) (38-83) % Lymph % (Auto) (25-47) % [place] % (Auto) (0-7) % Eos % (Auto) (0-6) % Baso % (Auto) (0-2) % Absolute Neuts (auto) (1.5-7.7) 10^3/ul Absolute Lymphs (auto) (1.0-4.8) 10^3/ul Absolute Monos (auto) (0-0.8) 10^3/ul Absolute Eos (auto) (0-0.6) 10^3/ul Absolute Basos (auto) (0-0.2) 10^3/ul Absolute Nucleated RBC 10^3/ul Nucleated RBC % INR (Anticoag Therapy) (0.77-1.02) APTT (26.0-36.3) seconds Sodium (133-145) mmol/L Potassium (3.5-5.0) mmol/L Chloride (101-111) mmol/L Carbon Dioxide (22-32) mmol/L Anion Gap (2-11) mmol/L BUN (6-24) mg/dL Creatinine (0.51-0.95) mg/dL Est GFR ( Amer) (>60) Est GFR (Non-Af Amer) (>60) BUN/Creatinine Ratio (8-20) Glucose (70-100) mg/dL Lactic Acid 1.7 (0.5-2.0) mmol/L Calcium (8.6-10.3) mg/dL Total Bilirubin (0.2-1.0) mg/dL AST (13-39) U/L ALT (7-52) U/L Alkaline Phosphatase (34-104) U/L Troponin I (<0.04) ng/mL C-Reactive Protein (< 5.00) mg/L Total Protein (6.4-8.9) g/dL Albumin (3.2-5.2) g/dL Globulin (2-4) g/dL Albumin/Globulin Ratio (1-3) Lipase (11.0-82.0) U/L Urine Color Straw Urine Appearance Clear Urine pH 8.0 (5-9) Ur Specific [place] 1.004 L (1.010-1.030) Urine Protein 2+(100 mg/dl) A (Negative) Urine Ketones Negative (Negative) Urine Blood Negative (Negative) Urine Nitrate Negative (Negative) Urine Bilirubin Negative (Negative) Urine Urobilinogen Negative (Negative) Ur Leukocyte Esterase 3+ A (Negative) Urine WBC (Auto) 1+(6-10/hpf) A (Absent) Urine RBC (Auto) Trace(0-2/hpf) (Absent) Ur Squamous Epith Cells Present A (Absent) Urine Bacteria 1+ A (Absent) Urine Glucose Negative (Negative) Result Diagrams: 01/16/18 16:08 01/16/18 16:08 Lab Statement: Any lab studies that have been ordered have been reviewed, and results considered in the medical decision making process. - CT Abdomen/Pelvis CT Interpretation Completed By: Radiologist - 1. STABLE BILIARY DILATATION. 2. HIATAL HERNIA. 3. ATHEROSCLEROSIS. 4. EVALUATION OF THE PELVIC ORGANS, DISTAL URETERS, BLADDER, DISTAL SIGMOID COLON AND RECTUM, IS LIMITED BY STREAK ARTIFACT FROM BILATERAL HIP ARTHROPLASTY. ED physician has reviewed this report. Re-Evaluation - Re-Evaluation First Eval Re-Evaluation Time: 19:43 Change: Improved Comment: Patient informed of CT abd/pel results. Discussed discharge plan. Agreeable to discharge. Abdominal Pain Fem Course/Dx - Course Course Of Treatment: 57 y/o F presents with abdominal pain. CT abd/pel reveals urinary tract infection. Patient discharged with prescription and follow up from primary care provider. Agreeable to this plan. - Diagnoses Differential Diagnosis: Positive: Diverticulitis, Renal Colic, Urinary Tract Infection Provider Diagnoses: Urinary tract infection Discharge - Sign-Out/Discharge Documenting (check all that apply): Discharge - Discharge Plan Condition: Stable Disposition: HOME Prescriptions: Levofloxacin TAB* [Levaquin TAB*] 500 mg PO DAILY #5 tab Patient Education Materials: Urinary Tract Infection in Women (ED) Referrals: Nabila Barrera MD [Primary Care Provider] - 3 Days Additional Instructions: Take medication as prescribed. Follow up with your primary care provider in 3 days. Return to the Emergency Department with any new or worsening symptoms. - Billing Disposition and Condition Condition: STABLE Disposition: HOME The documentation as recorded by the Edie agustin Gabriel accurately reflects the service I personally performed and the decisions made by Nichole rodríguez Emmanuel.
== END 2018-01-16 20:06 | disposition home or self-care (01) ==
LOC: ED 16:10
DX: N39.0 Urinary tract infection, site not specified (principal); R10.32 Left lower quadrant pain; Z86.79 Personal history of other diseases of the circulatory system; Z87.891 Personal history of nicotine dependence
CPT/HCPCS: 36415; 74176; 80053; 81003; 81015; 83605; 83690; 84484; 85025; 85610; 85730; 86140; 87086; 96372; 99283; J2270

== ENCOUNTER 2018-04-11 15:24 | Inpatient (IN) | payer MEDICARE, MEDICAID ==
[2018-04-11] MEDS ORDERED: Lactated Ringers 1000 ml Bag*IV.FLUID IV ONE (15:41)
--- NOTE | 2018-04-11 16:18 | RAD ---
HISTORY: sepsis COMPARISONS: July 11, 2017 VIEWS: 1: frontal portable view of the chest at 4:12 PM FINDINGS: LINES AND TUBES: None. CARDIOMEDIASTINAL SILHOUETTE: The cardiomediastinal silhouette is normal for portable technique. PLEURA: The costophrenic angles are sharp. No pleural abnormalities are noted. LUNG PARENCHYMA: The lungs are clear. ABDOMEN: The upper abdomen is clear. There is no subphrenic gas. BONES AND SOFT TISSUES: No bone or soft tissue abnormalities are noted. IMPRESSION: NO ACTIVE CARDIOPULMONARY DISEASE.
[2018-04-11 16:43] LABS: ABS Basophils 0 10^3/ul (0-0.2); ABS Eosinophils 0 10^3/ul (0-0.6); ABS Lymphocytes 0.4 10^3/ul (1.0-4.8); ABS Monocytes 0.2 10^3/ul (0-0.8); ABS Neutrophils 9.4 10^3/ul (1.5-7.7); ABS Nucleated RBC 0 10^3/ul; Eosinophil % 0 % (0-6); Hematocrit 34 % (35-47); Hemoglobin 11.2 g/dl (12.0-16.0); Lymphocyte % 3.6 % (25-47); Mean Corpuscular HGB Conc 33 g/dl (31-36); Mean Corpuscular Hemoglobin 28 pg (27-31); Mean Corpuscular Volume 86 fL (80-97); Mean Platelet Volume 7.6 um3 (7.4-10.4); Nucleated Red Blood Cells % 0.1; Platelet Count 164 10^3/ul (150-450); Red Blood Count 3.99 10^6/ul (4.00-5.40); Red Cell Distribution Width 15 % (10.5-15)
[2018-04-11 17:04] LABS: EGFR Non-African American 31.8 (>60)
--- NOTE | 2018-04-11 19:52 | ED ---
Matthew Emerson Jade, scribed for Reno Mijares MD on 04/11/18 at 1609 . Complex/Multi-Sys Presentation - HPI Summary HPI Summary: Pt is a 57 y/o female BIBA who c/o fever and weakness. Pt states last night she had a headache and today she began to have a fever, weakness, urinary frequency , urinary incontinence, lower abdomen pain, and foul-smelling urine. She denies any vomiting, back pain, or dysuria. PMHx lupus and stroke, which resulted in a RUE contracture and RLE weak. - History Of Current Complaint Chief Complaint: EDGeneral Time Seen by Provider: 04/11/18 15:44 Hx Obtained From: Patient, EMS Onset/Duration: Gradual Onset, Lasting Days - Last night, Still Present Associated Signs And Symptoms: Negative: Vomiting - Allergies/Home Medications Allergies/Adverse Reactions: Allergies Allergy/AdvReac Type Severity Reaction Status Date / Time fentanyl Allergy Severe rash, Verified 04/11/18 16:34 hives, itchy Sulfa (Sulfonamide Allergy Severe Facial Verified 04/11/18 16:34 Antibiotics) Redness/Flushing baclofen AdvReac Intermediate Altered Verified 04/11/18 16:34 Mental Status nitrofurantoin AdvReac Intermediate See Comment Verified 04/11/18 16:34 PMH/Surg Hx/FS Hx/Imm Hx Endocrine/Hematology History: Reports: Hx Systemic Lupus Erythematosus, Hx Thyroid Disease - RIGHT LOBE THYROID IS ENLARGED, Denies: Hx Anticoagulant Therapy, Hx Bone Marrow Disease, Hx Diabetes, Hx Sickle Cell Disease, Hx Anemia Cardiovascular History: Reports: Hx Deep Vein Thrombosis, Hx Hypertension Denies: Hx Congestive Heart Failure, Hx Pacemaker/ICD, Other Cardiovascular Problems/Disorders Respiratory History: Denies: Hx Asthma, Hx Pulmonary Embolism, Hx Sleep Apnea, Other Respiratory Problems/Disorders GI History: Reports: Hx Gastroesophageal Reflux Disease - on meds, Hx Hiatal Hernia Denies: Hx Jaundice History: Reports: Hx Chronic Renal Failure, Hx Kidney Infection, Other Problems/Disorders - UTI, vag abscess. SEES DR. Lozano ABOUT KIDNEYS Denies: Hx Renal Disease Musculoskeletal History: Reports: Hx Arthritis - SHOULDERS, Hx Back Problems - pain, Other Musculoskeletal History - osteopenia, r hip pain x 1 year, l hip hemiarthroplasty Denies: Hx Tendonitis Sensory History: Reports: Hx Deafness - [place] in right ear, Hx Hearing Problem - right hear clogged Denies: Hx Cataracts, Hx Contacts or Glasses, Hx Glaucoma, Hx Hearing Aid Opthamlomology History: Denies: Hx Cataracts, Hx Contacts or Glasses, Hx Glaucoma Neurological History: Reports: Hx CVA - with right hemiplegia , Hx Migraine - ~ 1 MONTH AGO, HAPPENS OCCASIONALLY, Hx Seizures, Hx Transient Ischemic Attacks ( TIA), Other Neuro Impairments/Disorders - cva lupus migranes; 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 Denies: Hx Nerve Disease Psychiatric History: Denies: Hx Anxiety, Hx Depression, Hx Panic Disorder - Cancer History Hx Chemotherapy: No Hx Radiation Therapy: No - Surgical History Surgery Procedure, Year, and Place: BILATERAL hip replacement, hysterectomy, one ovary removed; VAGINAL ABSCESS I&D, STROKE 1986 Hx Anesthesia Reactions: No - Immunization History Date of Tetanus Vaccine: unk Date of Influenza Vaccine: unk Infectious Disease History: No Infectious Disease History: Reports: Hx of Known/Suspected MRSA - patient does not remember, Hx Shingles Denies: Hx Hepatitis, Traveled Outside the [place] in Last 30 Days - Family History Known Family History: Positive: Cardiac Disease, Hypertension, Diabetes - Social History Alcohol Use: None Hx Substance Use: No Substance Use Type: Reports: None Hx Tobacco Use: No Smoking Status (MU): Former Smoker Amount Used/How Often: only smoked for weeks Have You Smoked in the Last Year: No Review of Systems Positive: Fever Positive: Abdominal Pain - lower. Negative: Vomiting Positive: frequency, incontinence, other - Foul smelling urine. Negative: dysuria Musculoskeletal: Negative - back pain Positive: Weakness All Other Systems Reviewed And Are Negative: Yes Physical Exam - Summary Physical Exam Summary: Appearance: Mild pain distress. Skin: dry, reflects adequate perfusion, hot Head/face: normal Eyes: EOMI, ANDREI ENT: normal Neck: supple, non-tender Respiratory: CTA, breath sounds present Cardiovascular: pulses symmetrical, tachycardia, tremors Abdomen: non-tender, soft, foul-smelling urine. Urinary incontinence. Bowel Sounds: present Musculoskeletal: normal, strength/ROM intact Neuro: sensory motor intact, A&Ox3. RLE weakness. RUE contracture. Triage Information Reviewed: Yes Vital Signs On Initial Exam: Initial Vitals Temp Pulse Resp BP Pulse Ox 102.9 F 114 14 103/51 96 04/11/18 15:25 04/11/18 15:25 04/11/18 15:25 04/11/18 15:25 04/11/18 15:25 Vital Signs Reviewed: Yes Diagnostics - Vital Signs Vital Signs Temp Pulse Resp BP Pulse Ox 04/11/18 15:25 102.9 F 114 14 103/51 96 - Laboratory Lab Results: Lab Results 04/11/18 04/11/18 04/11/18 Range/Units 16:36 16:36 16:36 WBC 10.0 (3.5-10.8) 10^3/ul RBC 3.99 L (4.00-5.40) 10^6/ul Hgb 11.2 L (12.0-16.0) g/dl Hct 34 L (35-47) % MCV 86 (80-97) fL MCH 28 (27-31) pg MCHC 33 (31-36) g/dl RDW 15 (10.5-15) % Plt Count 164 (150-450) 10^3/ul MPV 7.6 (7.4-10.4) um3 Neut % (Auto) 94.0 H (38-83) % Lymph % (Auto) 3.6 L (25-47) % [place] % (Auto) 2.1 (0-7) % Eos % (Auto) 0 (0-6) % Baso % (Auto) 0.3 (0-2) % Absolute Neuts (auto) 9.4 H (1.5-7.7) 10^3/ul Absolute Lymphs (auto) 0.4 L (1.0-4.8) 10^3/ul Absolute Monos (auto) 0.2 (0-0.8) 10^3/ul Absolute Eos (auto) 0 (0-0.6) 10^3/ul Absolute Basos (auto) 0 (0-0.2) 10^3/ul Absolute Nucleated RBC 0 10^3/ul Nucleated RBC % 0.1 INR (Anticoag Therapy) 1.00 (0.77-1.02) APTT 29.1 (26.0-36.3) seconds Sodium 137 (135-145) mmol/L Potassium 4.3 (3.5-5.0) mmol/L Chloride 97 L (101-111) mmol/L Carbon Dioxide 23 (22-32) mmol/L Anion Gap 17 H (2-11) mmol/L BUN 18 (6-24) mg/dL Creatinine 1.66 H (0.51-0.95) mg/dL Est GFR ( Amer) 41.0 (>60) Est GFR (Non-Af Amer) 31.8 (>60) BUN/Creatinine Ratio 10.8 (8-20) Glucose 85 (70-100) mg/dL Lactic Acid (0.5-2.0) mmol/L Calcium 9.4 (8.6-10.3) mg/dL Total Bilirubin 0.50 (0.2-1.0) mg/dL AST 19 (13-39) U/L ALT 10 (7-52) U/L Alkaline Phosphatase 41 (34-104) U/L Troponin I 0.00 (<0.04) ng/mL Total Protein 7.9 (6.4-8.9) g/dL Albumin 4.0 (3.2-5.2) g/dL Globulin 3.9 (2-4) g/dL Albumin/Globulin Ratio 1.0 (1-3) /18 Range/Units 16:36 WBC (3.5-10.8) 10^3/ul RBC (4.00-5.40) 10^6/ul Hgb (12.0-16.0) g/dl Hct (35-47) % MCV (80-97) fL MCH (27-31) pg MCHC (31-36) g/dl RDW (10.5-15) % Plt Count (150-450) 10^3/ul MPV (7.4-10.4) um3 Neut % (Auto) (38-83) % Lymph % (Auto) (25-47) % [place] % (Auto) (0-7) % Eos % (Auto) (0-6) % Baso % (Auto) (0-2) % Absolute Neuts (auto) (1.5-7.7) 10^3/ul Absolute Lymphs (auto) (1.0-4.8) 10^3/ul Absolute Monos (auto) (0-0.8) 10^3/ul Absolute Eos (auto) (0-0.6) 10^3/ul Absolute Basos (auto) (0-0.2) 10^3/ul Absolute Nucleated RBC 10^3/ul Nucleated RBC % INR (Anticoag Therapy) (0.77-1.02) APTT (26.0-36.3) seconds Sodium (135-145) mmol/L Potassium (3.5-5.0) mmol/L Chloride (101-111) mmol/L Carbon Dioxide (22-32) mmol/L Anion Gap (2-11) mmol/L BUN (6-24) mg/dL Creatinine (0.51-0.95) mg/dL Est GFR ( Amer) (>60) Est GFR (Non-Af Amer) (>60) BUN/Creatinine Ratio (8-20) Glucose (70-100) mg/dL Lactic Acid 0.9 (0.5-2.0) mmol/L Calcium (8.6-10.3) mg/dL Total Bilirubin (0.2-1.0) mg/dL AST (13-39) U/L ALT (7-52) U/L Alkaline Phosphatase (34-104) U/L Troponin I (<0.04) ng/mL Total Protein (6.4-8.9) g/dL Albumin (3.2-5.2) g/dL Globulin (2-4) g/dL Albumin/Globulin Ratio (1-3) Result Diagrams: 04/11/18 16:36 04/11/18 16:36 Lab Statement: Any lab studies that have been ordered have been reviewed, and results considered in the medical decision making process. - Radiology CXR Xray Interpretation: No Acute Changes - NO ACTIVE CARDIOPULMONARY DISEASE. ED physician reviewed radiology report. Radiology Interpretation Completed By: Radiologist - EKG 15:50 Cardiac Rate: Tachycardia - 106 bpm EKG Rhythm: Sinus Rhythm ST Segment: Normal EKG Interpretation: Normal axis, normal interval Re-Evaluation - Re-Evaluation First Eval Change: Unchanged Complex Multi-Symp Course/Dx Course Of Treatment: Has been a struggle to obtain IV access on this patient. We had all her best people tried to obtain IVs without success. I attempted access by EJ including with use of an arrow arterial line kit. We are unable to successfully pass an IV. She will require central line. The patient did not permit us to do a straight catheter urine. We had to wait quite some time to obtain a specimen which likely is contaminated. She has been having urinary symptoms and likely has UTI. Her lactic acid and white blood cell count are nonelevated. She is febrile however and likely suffering from UTI. Dr. Howard will accept care and obtain access through central line. Blood cultures, etc. have been done. If access cannot be obtained quickly, intramuscular Rocephin will be given. - Diagnoses Differential Diagnoses/HQI/PQRI: Metabolic Abnormality, Sepsis, Urinary Tract Infection Provider Diagnoses: Hemiplegia affecting dominant side, UTI (urinary tract infection), Sepsis - Critical Care Time Critical Care Time: - Critical care time at Discharge - Sign-Out/Discharge Documenting (check all that apply): Sign-Out Patient Signing out patient TO: Ambrose Howard - Discharge Plan Condition: Guarded Referrals: Nabila Barrera MD [Primary Care Provider] - - Billing Disposition and Condition Condition: GUARDED The documentation as recorded by the Matthew agustin Jade accurately reflects the service I personally performed and the decisions made by , Reno Mijares MD.
[2018-04-11] MEDS: cefTRIAXone(*) 2 GM in NS 0.9% 100 ML* 100 ML IVPB ONE ×2 (19:55→19:56)
[2018-04-11] MEDS ORDERED: Morphine INJ* 2 MG/ML 1 ML CARPUJECT IV ONE (21:04)
[2018-04-11] MEDS ORDERED: Morphine VIAL* 4 MG/ML VIAL (1 ml vial) IV ONE ×2 (21:09→21:12)
[2018-04-11 21:20] LABS: Urine Appearance Cloudy; Urine Blood Negative (Negative); Urine Color Yellow; Urine Ketones Negative (Negative); Urine Protein 2+(100 mg/dL) (Negative); Urine Specific Gravity 1.011 (1.010-1.030); Urine Urobilinogen Negative (Negative)
[2018-04-11] MEDS ORDERED: Clindamycin 600 MG IVPREMIX(* 600 MG/50 ML SDV IV ONE (21:55)
[2018-04-11] MEDS ORDERED: Melatonin 3 MG TAB PO PRN (23:13)
[2018-04-11] MEDS ORDERED: Ondansetron ODT TAB* 4 MG PO PRN (23:14)
--- NOTE | 2018-04-11 23:16 | HP ---
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 She reports subjective F/C, but denies sweats, chest pain, SOB, palpitations, N/V/D, B/U/F of urine, changes in bowel/bladder, cough, congestion, rash, or other issues. She denies exacerbating and alleviating factors. PMedHx L MCA CVA SLE R hemiparesis seizure disorder CKD stg 3b GERD Ambulatory Orders Nursing to reconcile. PHENobarbital TAB(*) 60 mg PO BID 09/07/13 Calcium Carbonate-Vitamin D [Calcium 600 + D 600-400 mg-Unit] 1 tab PO BID 10/29 Famotidine TAB* [Pepcid 20 MG TAB*] 20 mg PO 2100 10/29/16 Gabapentin TAB(NF) [Neurontin 600 mg TAB(NF)] 600 mg PO BID 10/29/16 Hydroxychloroquine TAB* [Plaquenil TAB*] 200 mg PO BID WITH MEALS tab 04/03/17 Nebivolol TAB (NF) [Bystolic TAB (NF)] 5 mg PO DAILY tab 04/03/17 oxyCODONE/Acetamin 5/325 MG* [Percocet 5/325 TAB*] 1 - 2 tab PO Q4H PRN #60 tab MDD 6 04/03/17 amLODIPine TAB* [Norvasc 5 mg TAB*] 2.5 mg PO DAILY #15 tab 09/02/17 Allergies fentanyl Allergy (Verified 04/11/18 21:20) rash, hives, itchy Sulfa (Sulfonamide Antibiotics) Allergy (Verified 04/11/18 21:20) Facial Redness/Flushing baclofen Adverse Reaction (Intermediate, Verified 04/11/18 16:34) Altered Mental Status occurred 2 days in a row nitrofurantoin Adverse Reaction (Intermediate, Verified 04/11/18 21:20) Leukopenia/neutropenia PSurgHx B TYRONE hysterectomy R breast BX (benign) SocHx: denies tobacco, alcohol, & recreational drugs; disabled; single, 2 adult children; full code status FamHx: Mother: alive in her 80s, HTN; Father: in his 60s 2nd complications of Parkinsonism ROS: as above, otherwise reviewed and all were negative vitals: Vital Signs Temp 37.9 C 04/12/18 03:03 Pulse 98 04/12/18 03:03 Resp 18 04/12/18 03:03 BP 118/68 04/12/18 03:03 Pulse Ox 99 04/12/18 03:03 Intake & Output 04/11/18 04/11/18 04/12/18 11:59 23:59 11:59 Intake Total 2160 Balance 216 Weight 63.503 kg Intake: IV Fluids 2159 Constitutional: NAD, normally developed, well-nourished chronically ill appearing black female HEENM: atraumatic; sclera/conjunctiva: anicteric/clear; hearing: clinically intact; oropharynx: clear, mucosa tacky Neck: soft tissue: no nuchal rigidity; thyroid: normal Pulmonary: clear to auscultation bilaterally, good aeration, no accessory muscle use CV: TR/RR, normal S1S2, no carotid bruit, no jugular venous distention, 2+ B DP/ PT, no edema Abdominal: soft, non-distended, non-tender, no rebound/guarding/rigidity, normoactive bowel sounds, no hepatosplenomegaly or masses, no costovertebral angle tenderness Musculoskeletal: general: grossly intact, tender R upper anterior thigh Integumental: R upper anterior thigh with swelling, erythema, warmth, & tenderness Psychiatric orientation: AA&O to PPS affect: calm mood: cooperative eye contact: fair content: reliable responses: timely insight: fair Testing: Lab Results 04/11/18 04/11/18 04/11/18 Range/Units 16:36 16:36 16:36 WBC 10.0 (3.5-10.8) 10^3/ul RBC 3.99 L (4.00-5.40) 10^6/ul Hgb 11.2 L (12.0-16.0) g/dl Hct 34 L (35-47) % MCV 86 (80-97) fL MCH 28 (27-31) pg MCHC 33 (31-36) g/dl RDW 15 (10.5-15) % Plt Count 164 (150-450) 10^3/ul MPV 7.6 (7.4-10.4) um3 Neut % (Auto) 94.0 H (38-83) % Lymph % (Auto) 3.6 L (25-47) % Grand % (Auto) 2.1 (0-7) % Eos % (Auto) 0 (0-6) % Baso % (Auto) 0.3 (0-2) % Absolute Neuts (auto) 9.4 H (1.5-7.7) 10^3/ul Absolute Lymphs (auto) 0.4 L (1.0-4.8) 10^3/ul Absolute Monos (auto) 0.2 (0-0.8) 10^3/ul Absolute Eos (auto) 0 (0-0.6) 10^3/ul Absolute Basos (auto) 0 (0-0.2) 10^3/ul Absolute Nucleated RBC 0 10^3/ul Nucleated RBC % 0.1 INR (Anticoag Therapy) 1.00 (0.77-1.02) APTT 29.1 (26.0-36.3) seconds Sodium 137 (135-145) mmol/L Potassium 4.3 (3.5-5.0) mmol/L Chloride 97 L (101-111) mmol/L Carbon Dioxide 23 (22-32) mmol/L Anion Gap 17 H (2-11) mmol/L BUN 18 (6-24) mg/dL Creatinine 1.66 H (0.51-0.95) mg/dL Est GFR ( Amer) 41.0 (>60) Est GFR (Non-Af Amer) 31.8 (>60) BUN/Creatinine Ratio 10.8 (8-20) Glucose 85 (70-100) mg/dL Lactic Acid (0.5-2.0) mmol/L Calcium 9.4 (8.6-10.3) mg/dL Total Bilirubin 0.50 (0.2-1.0) mg/dL AST 19 (13-39) U/L ALT 10 (7-52) U/L Alkaline Phosphatase 41 (34-104) U/L Troponin I 0.00 (<0.04) ng/mL Total Protein 7.9 (6.4-8.9) g/dL Albumin 4.0 (3.2-5.2) g/dL Globulin 3.9 (2-4) g/dL Albumin/Globulin Ratio 1.0 (1-3) Urine Color Urine Appearance Urine pH (5-9) Ur Specific Dougherty (1.010-1.030) Urine Protein (Negative) Urine Ketones (Negative) Urine Blood (Negative) Urine Nitrate (Negative) Urine Bilirubin (Negative) Urine Urobilinogen (Negative) Ur Leukocyte Esterase (Negative) Urine WBC (Auto) (Absent) Urine RBC (Auto) (Absent) Ur Squamous Epith Cells (Absent) Urine Bacteria (Absent) Urine Glucose (Negative) 04/11/18 04/11/18 Range/Units 16:36 20:56 WBC (3.5-10.8) 10^3/ul RBC (4.00-5.40) 10^6/ul Hgb (12.0-16.0) g/dl Hct (35-47) % MCV (80-97) fL MCH (27-31) pg MCHC (31-36) g/dl RDW (10.5-15) % Plt Count (150-450) 10^3/ul MPV (7.4-10.4) um3 Neut % (Auto) (38-83) % Lymph % (Auto) (25-47) % Grand % (Auto) (0-7) % Eos % (Auto) (0-6) % Baso % (Auto) (0-2) % Absolute Neuts (auto) (1.5-7.7) 10^3/ul Absolute Lymphs (auto) (1.0-4.8) 10^3/ul Absolute Monos (auto) (0-0.8) 10^3/ul Absolute Eos (auto) (0-0.6) 10^3/ul Absolute Basos (auto) (0-0.2) 10^3/ul Absolute Nucleated RBC 10^3/ul Nucleated RBC % INR (Anticoag Therapy) (0.77-1.02) APTT (26.0-36.3) seconds Sodium (135-145) mmol/L Potassium (3.5-5.0) mmol/L Chloride (101-111) mmol/L Carbon Dioxide (22-32) mmol/L Anion Gap (2-11) mmol/L BUN (6-24) mg/dL Creatinine (0.51-0.95) mg/dL Est GFR ( Amer) (>60) Est GFR (Non-Af Amer) (>60) BUN/Creatinine Ratio (8-20) Glucose (70-100) mg/dL Lactic Acid 0.9 (0.5-2.0) mmol/L Calcium (8.6-10.3) mg/dL Total Bilirubin (0.2-1.0) mg/dL AST (13-39) U/L ALT (7-52) U/L Alkaline Phosphatase (34-104) U/L Troponin I (<0.04) ng/mL Total Protein (6.4-8.9) g/dL Albumin (3.2-5.2) g/dL Globulin (2-4) g/dL Albumin/Globulin Ratio (1-3) Urine Color Yellow Urine Appearance Cloudy Urine pH 8.0 (5-9) Ur Specific Dougherty 1.011 (1.010-1.030) Urine Protein 2+(100 mg/dl) A (Negative) Urine Ketones Negative (Negative) Urine Blood Negative (Negative) Urine Nitrate Negative (Negative) Urine Bilirubin Negative (Negative) Urine Urobilinogen Negative (Negative) Ur Leukocyte Esterase 3+ A (Negative) Urine WBC (Auto) 3+(>20/hpf) A (Absent) Urine RBC (Auto) Trace(0-2/hpf) (Absent) Ur Squamous Epith Cells Present A (Absent) Urine Bacteria Absent (Absent) Urine Glucose Negative (Negative) ECG, personally reviewed: sinus tachycardia rate 106, no ischemia CXR, personally reviewed: no acute process CT RLE: ordered, pending Impression: 57F HX L MCA CVA, SLE, R hemiparesis, seizure disorder, HTN who presents with 2 days of malaise & R-sided pain found to be septic (tachycardia & fever) 2nd RLE cellulitis DIAGNOSIS & PLAN Primary sepsis (tachycardia & fever) 2nd RLE cellulitis : given ceftriaxone & clindamycin in ED, will continue with cefepime IV : blood CX : check CT RLE to r/o abscess : IVFs : pain control : supportive care Secondary L MCA CVA R hemiparesis : no acute issues SLE : review meds once reconciled seizure disorder : review meds once reconciled CKD stg 3b : IVFs, periodic monitoring GERD : omeprazole Admission Rational: inpatient for sepsis 2nd RLE cellulitis in an individual at risk for rapid deterioration; not appropriate for outpatient setting DVTp: SCDs & heparin SQ Code Status: full HCP: son, Yayo
[2018-04-11] MEDS: Acetaminophen TAB* 325 MG PO PRN (23:53)
[2018-04-12] MEDS: NS 0.9% 1000 ML* 1,000 ML IV SCH ×3 (01:30→23:54)
[2018-04-12] MEDS: Omeprazole CAP* 20 MG PO SCH (04:45)
[2018-04-12] MEDS: Cefepime 2 GM in Dextrose(*) 2 GM/50 ML BAG IV SCH (04:46)
[2018-04-12] MEDS ORDERED: Cefepime(*) 2 GM in NS 0.9% 50 ML* 50 ML IVPB SCH ×2 (05:00→06:00)
--- NOTE | 2018-04-12 09:07 | RAD ---
HISTORY: fever, cellulitis RLE, eval for abscess COMPARISONS: None TECHNIQUE: Multiple contiguous axial CT images are obtained of the right lower extremity from the knee through ankle, with coronal and sagittal multiplanar reconstructions, without intravenous contrast administration. FINDINGS: The study is limited by the lack of intravenous contrast. This limits evaluation of the solid organs and vasculature, and decreases sensitivity for abscess.. BONE DENSITY: Normal. BONES: There is no displaced fracture. No erosion JOINTS: There is medial and lateral compartment joint space narrowing. There is chondrocalcinosis of the patellofemoral compartment. MUSCULATURE: Unremarkable ALIGNMENT: There is no dislocation. SOFT TISSUES: There is peripheral arterial calcification. There is subcutaneous stranding along the anterolateral aspect of the right foreleg. There is no loculated fluid collection to suggest abscess. OTHER FINDINGS: None. IMPRESSION: SUBCUTANEOUS INFLAMMATORY CHANGE CONSISTENT WITH THE HISTORY OF CELLULITIS. NO LOCULATED FLUID COLLECTION TO SUGGEST ABSCESS.
[2018-04-12] MEDS: Docusate CAP* 100 MG PO SCH ×2 (09:19→21:39)
[2018-04-12] MEDS: Hydroxychloroquine TAB* 200 MG PO SCH ×2 (09:19→19:09)
[2018-04-12] MEDS: Gabapentin CAP(*) 300 MG PO SCH ×2 (09:19→21:39)
[2018-04-12] MEDS: PHENobarbital TAB(*) 30 MG PO SCH ×2 (09:20→21:39)
[2018-04-12] MEDS: amLODIPine TAB* 5 MG PO SCH (09:20)
[2018-04-12] MEDS: CMCS:Nebivolol TAB (NF) 2.5 MG TAB PO SCH (09:20)
[2018-04-12] MEDS: oxyCODONE TAB* 5 MG TAB PO PRN (11:19)
--- NOTE | 2018-04-12 14:41 | PN ---
Subjective Date of Service: 04/12/18 Interval History: Pt seen and examined. Meds and labs reviewed. ROS: Denied DREW/dizziness, F/C, N/V, CP, SOB, increased cough, sputum production , abd pain, diarrhea, constipation, dysuria, myalgias, arthralgias, throat pain , and new skin lesions. The rest of the 14 point ROS are unremarkable. PHYSICAL EXAM: GEN APPEARANCE: Awake, not in acute distress, not oriented to time and person HEENT: NC/AT, PERRLA, moist oral mucosa, (-) throat erythema NECK: Soft, supple, (-) cervical LAD, (-)JVD HEART: S1S2 WNL, RRR, No MRG CHEST: CTA, BL, GAE, No W/R/R ABD: Soft, ND/NT, NABS 4x Q EXT: No C/C/RLE +1, erythema has significantly improved per mother at bedside compared to initial presentation SKIN: Warm to touch PSYCH: No active psychosis, hallucinations, depression, SI/HI, emotionally labile---when asked about orientation question and could not answer some questions, she began crying; her mother at bedside mentioned that she gets easily emotional; pt re-assured prior to leaving room. Objective Active Medications: Acetaminophen (Tylenol Tab*) 650 mg PO Q6H PRN PRN Reason: FEVER/PAIN Last Admin: 04/11/18 23:53 Dose: 650 mg Amlodipine Besylate (Norvasc Tab*) 2.5 mg PO DAILY [facility] Last Admin: 04/12/18 09:20 Dose: 2.5 mg Docusate Sodium (Colace Cap*) 200 mg PO BID [facility] Last Admin: 04/12/18 09:19 Dose: 200 mg Famotidine (Pepcid Tab*) 20 mg PO 2100 [facility] Gabapentin (Neurontin Cap(*)) 600 mg PO BID [facility] Last Admin: 04/12/18 09:19 Dose: 600 mg Hydroxychloroquine Sulfate (Plaquenil Tab*) 200 mg PO BID WITH MEALS [facility] Last Admin: 04/12/18 09:19 Dose: 200 mg Sodium Chloride (Ns 0.9% 1000 Ml*) 1,000 mls @ 100 mls/hr IV PER RATE [facility] Last Admin: 04/12/18 12:49 Dose: 100 mls/hr Cefepime HCl (Maxipime 2 Gm In Dextrose Duplex (*)) 2 gm in 50 mls @ 100 mls/ hr IV Q24H [facility] Last Admin: 04/12/18 04:46 Dose: 100 mls/hr Melatonin (Melatonin) 3 mg PO BEDTIME PRN; Protocol PRN Reason: Sleep Nebivolol (Bystolic Tab (Nf)) 5 mg PO DAILY [facility] Last Admin: 04/12/18 09:20 Dose: 5 mg Omeprazole (Prilosec Cap*) 20 mg PO DAILY@0600 [facility] Last Admin: 04/12/18 04:45 Dose: 20 mg Ondansetron HCl (Zofran Odt Tab*) 4 mg PO Q6H PRN PRN Reason: n/v Oxycodone HCl (Roxycodone Tab*) 2.5 mg PO Q4H PRN PRN Reason: PAIN Last Admin: 04/12/18 11:19 Dose: 2.5 mg Phenobarbital (Phenobarbital Tab(*)) 60 mg PO BID [facility] Last Admin: 04/12/18 09:20 Dose: 60 mg Vital Signs - 8 hr 04/12/18 04/12/18 04/12/18 07:24 09:19 09:20 Temperature 99.3 F Pulse Rate 105 Respiratory 18 18 18 Rate Blood Pressure 111/68 (mmHg) O2 Sat by Pulse 98 Oximetry 04/12/18 04/12/18 04/12/18 09:55 11:15 11:19 Temperature 98.5 F Pulse Rate 100 Respiratory 18 20 18 Rate Blood Pressure 122/69 (mmHg) O2 Sat by Pulse 98 Oximetry 04/12/18 14:03 Temperature Pulse Rate Respiratory 16 Rate Blood Pressure (mmHg) O2 Sat by Pulse Oximetry Oxygen Devices in Use Now: None Result Diagrams: 04/11/18 16:36 04/11/18 16:36 Additional Lab and Data: Lab Results 04/11/18 04/11/18 04/11/18 Range/Units 16:36 16:36 16:36 WBC 10.0 (3.5-10.8) 10^3/ul RBC 3.99 L (4.00-5.40) 10^6/ul Hgb 11.2 L (12.0-16.0) g/dl Hct 34 L (35-47) % MCV 86 (80-97) fL MCH 28 (27-31) pg MCHC 33 (31-36) g/dl RDW 15 (10.5-15) % Plt Count 164 (150-450) 10^3/ul MPV 7.6 (7.4-10.4) um3 Neut % (Auto) 94.0 H (38-83) % Lymph % (Auto) 3.6 L (25-47) % Major % (Auto) 2.1 (0-7) % Eos % (Auto) 0 (0-6) % Baso % (Auto) 0.3 (0-2) % Absolute Neuts (auto) 9.4 H (1.5-7.7) 10^3/ul Absolute Lymphs (auto) 0.4 L (1.0-4.8) 10^3/ul Absolute Monos (auto) 0.2 (0-0.8) 10^3/ul Absolute Eos (auto) 0 (0-0.6) 10^3/ul Absolute Basos (auto) 0 (0-0.2) 10^3/ul Absolute Nucleated RBC 0 10^3/ul Nucleated RBC % 0.1 INR (Anticoag Therapy) 1.00 (0.77-1.02) APTT 29.1 (26.0-36.3) seconds Sodium 137 (135-145) mmol/L Potassium 4.3 (3.5-5.0) mmol/L Chloride 97 L (101-111) mmol/L Carbon Dioxide 23 (22-32) mmol/L Anion Gap 17 H (2-11) mmol/L BUN 18 (6-24) mg/dL Creatinine 1.66 H (0.51-0.95) mg/dL Est GFR ( Amer) 41.0 (>60) Est GFR (Non-Af Amer) 31.8 (>60) BUN/Creatinine Ratio 10.8 (8-20) Glucose 85 (70-100) mg/dL Lactic Acid (0.5-2.0) mmol/L Calcium 9.4 (8.6-10.3) mg/dL Total Bilirubin 0.50 (0.2-1.0) mg/dL AST 19 (13-39) U/L ALT 10 (7-52) U/L Alkaline Phosphatase 41 (34-104) U/L Troponin I 0.00 (<0.04) ng/mL Total Protein 7.9 (6.4-8.9) g/dL Albumin 4.0 (3.2-5.2) g/dL Globulin 3.9 (2-4) g/dL Albumin/Globulin Ratio 1.0 (1-3) / Range/Units 16:36 WBC (3.5-10.8) 10^3/ul RBC (4.00-5.40) 10^6/ul Hgb (12.0-16.0) g/dl Hct (35-47) % MCV (80-97) fL MCH (27-31) pg MCHC (31-36) g/dl RDW (10.5-15) % Plt Count (150-450) 10^3/ul MPV (7.4-10.4) um3 Neut % (Auto) (38-83) % Lymph % (Auto) (25-47) % Major % (Auto) (0-7) % Eos % (Auto) (0-6) % Baso % (Auto) (0-2) % Absolute Neuts (auto) (1.5-7.7) 10^3/ul Absolute Lymphs (auto) (1.0-4.8) 10^3/ul Absolute Monos (auto) (0-0.8) 10^3/ul Absolute Eos (auto) (0-0.6) 10^3/ul Absolute Basos (auto) (0-0.2) 10^3/ul Absolute Nucleated RBC 10^3/ul Nucleated RBC % INR (Anticoag Therapy) (0.77-1.02) APTT (26.0-36.3) seconds Sodium (135-145) mmol/L Potassium (3.5-5.0) mmol/L Chloride (101-111) mmol/L Carbon Dioxide (22-32) mmol/L Anion Gap (2-11) mmol/L BUN (6-24) mg/dL Creatinine (0.51-0.95) mg/dL Est GFR ( Amer) (>60) Est GFR (Non-Af Amer) (>60) BUN/Creatinine Ratio (8-20) Glucose (70-100) mg/dL Lactic Acid 0.9 (0.5-2.0) mmol/L Calcium (8.6-10.3) mg/dL Total Bilirubin (0.2-1.0) mg/dL AST (13-39) U/L ALT (7-52) U/L Alkaline Phosphatase (34-104) U/L Troponin I (<0.04) ng/mL Total Protein (6.4-8.9) g/dL Albumin (3.2-5.2) g/dL Globulin (2-4) g/dL Albumin/Globulin Ratio (1-3) Assess/Plan/Problems-Billing Assessment: - Patient Problems (1) Cellulitis Current Visit: Yes Status: Acute Code(s): L03.90 - CELLULITIS, UNSPECIFIED SNOMED Code(s): 157734491 Comment: #RLE Cellulitis: -With mild sepsis -Continue Cefepime -IV access on the foot; IV therapist evaluated pt and suggests mid-line IV access instead of PICC line -Continue to follow cultures -Clinically improved as attested to by labs and mothers observation at bedside who mentioned that erythema and swelling has significantly improved (2) History of CVA (cerebrovascular accident) Current Visit: No Status: Acute Code(s): Z86.73 - PRSNL HX OF TIA (TIA), AND CEREB INFRC W/O RESID DEFICITS SNOMED Code(s): 188023449 Comment: #Left MCA CVA, S/P Right hemiparesis: -Thought to be due to the complication of her SLE -Will defer with PCP and/or outpatient cook fish and chips -Unclear why pt not on ASA and statinsdefer with PCP -Will check fasting lipid levels -Left MCA territory, approx 30 yrs ago. Uses cane to ambulate. Contractures on right side. (3) Lupus Current Visit: No Status: Chronic Code(s): M32.9 - SYSTEMIC LUPUS ERYTHEMATOSUS, UNSPECIFIED SNOMED Code(s): 57253254 Comment: #SLE: -Continue Hydroxychloroquine (4) CKD (chronic kidney disease) stage 3, GFR 30-59 ml/min Current Visit: No Status: Acute Code(s): N18.3 - CHRONIC KIDNEY DISEASE, STAGE 3 (MODERATE) SNOMED Code(s): 218095461 Comment: #Acute on Chronic renal failure/injury: -Likely due to pre-renal cause given mild sepsis on presentation -Continue IVFs (5) Seizure disorder Current Visit: Yes Status: Acute Code(s): G40.909 - EPILEPSY, UNSP, NOT INTRACTABLE, WITHOUT STATUS EPILEPTICUS SNOMED Code(s): 139773617 Comment: #Seizure d/o, history of: -Continue Gabapentin and Phenobarbital (6) GERD (gastroesophageal reflux disease) Current Visit: No Status: Chronic Code(s): K21.9 - GASTRO-ESOPHAGEAL REFLUX DISEASE WITHOUT ESOPHAGITIS SNOMED Code(s): 647221465 Comment: #GERD: -Continue Omeprazole (7) DVT prophylaxis Current Visit: No Status: Acute Onset Date: 04/19/15 Code(s): KYM9835 - SNOMED Code(s): 740421082 Comment: -Pt at high risk for developing DVT, however, since GFR very close to cut off will place pt on low dose Lovenox Status and Disposition: -For PT eval
[2018-04-12] MEDS: Enoxaparin(*) 30 MG/0.3 ML SYR SUBCUT SCH (19:09)
--- NOTE | 2018-04-12 20:03 | RAD ---
HISTORY: Please evaluate for DVT, right leg pain COMPARISONS: None relevant TECHNIQUE: Multiple transverse and longitudinal ultrasound images were obtained of the right lower extremity from the level of the common femoral vein inferiorly through to the infrapopliteal veins using grayscale, color Doppler, and spectral Doppler imaging with and without compression and with augmentation. Comparison images were obtained of the contralateral common femoral vein. FINDINGS: VEINS: The venous system of the right lower extremity is compressible throughout its course, with normal flow on color Doppler imaging and normal response to augmentation on spectral Doppler imaging. SOFT TISSUES: Unremarkable. OTHER FINDINGS: None. IMPRESSION: NO RIGHT LOWER EXTREMITY DEEP VEIN THROMBOSIS
[2018-04-12] MEDS: Famotidine TAB* 20 MG PO SCH (21:39)
[2018-04-13] MEDS: Omeprazole CAP* 20 MG PO SCH (04:54)
[2018-04-13] MEDS: Cefepime 2 GM in Dextrose(*) 2 GM/50 ML BAG IV SCH (04:54)
[2018-04-13 06:54] LABS: ABS Basophils 0 10^3/ul (0-0.2); ABS Eosinophils 0.1 10^3/ul (0-0.6); ABS Lymphocytes 0.6 10^3/ul (1.0-4.8); ABS Monocytes 0.2 10^3/ul (0-0.8); ABS Neutrophils 3.7 10^3/ul (1.5-7.7); ABS Nucleated RBC 0 10^3/ul; Eosinophil % 1.5 % (0-6); Hematocrit 26 % (35-47); Hemoglobin 8.9 g/dl (12.0-16.0); Lymphocyte % 12.3 % (25-47); Mean Corpuscular HGB Conc 34 g/dl (31-36); Mean Corpuscular Hemoglobin 29 pg (27-31); Mean Corpuscular Volume 85 fL (80-97); Mean Platelet Volume 7.7 um3 (7.4-10.4); Nucleated Red Blood Cells % 0; Platelet Count 113 10^3/ul (150-450); Red Blood Count 3.06 10^6/ul (4.00-5.40); Red Cell Distribution Width 15 % (10.5-15); White Blood Count 4.6 10^3/ul (3.5-10.8)
[2018-04-13 07:09] LABS: EGFR Non-African American 45.9 (>60)
[2018-04-13] MEDS: Gabapentin CAP(*) 300 MG PO SCH ×2 (07:44→21:46)
[2018-04-13] MEDS: CMCS:Nebivolol TAB (NF) 2.5 MG TAB PO SCH (07:44)
[2018-04-13] MEDS: Docusate CAP* 100 MG PO SCH ×2 (07:45→21:47)
[2018-04-13] MEDS: PHENobarbital TAB(*) 30 MG PO SCH ×2 (07:45→21:48)
[2018-04-13] MEDS: amLODIPine TAB* 5 MG PO SCH (07:46)
[2018-04-13] MEDS: Hydroxychloroquine TAB* 200 MG PO SCH ×2 (07:46→18:27)
[2018-04-13] MEDS: oxyCODONE TAB* 5 MG TAB PO PRN ×2 (07:47→13:37)
[2018-04-13] MEDS: NS 0.9% 1000 ML* 1,000 ML IV SCH ×2 (10:58→21:45)
[2018-04-13] MEDS: Acetaminophen TAB* 325 MG PO PRN (13:37)
[2018-04-13] MEDS: Enoxaparin(*) 30 MG/0.3 ML SYR SUBCUT SCH (15:29)
--- NOTE | 2018-04-13 19:35 | PN ---
Subjective Date of Service: 04/13/18 Interval History: Pt seen and examined. Meds and labs reviewed. ROS: Denied DREW/dizziness, F/C, N/V, CP, SOB, increased cough, sputum production , abd pain, diarrhea, constipation, dysuria, myalgias, arthralgias, throat pain , and new skin lesions. The rest of the 14 point ROS are unremarkable. PHYSICAL EXAM: GEN APPEARANCE: Awake, not in acute distress HEENT: NC/AT, PERRLA, moist oral mucosa, (-) throat erythema NECK: Soft, supple, (-) cervical LAD, (-)JVD HEART: S1S2 WNL, RRR, No MRG CHEST: CTA, BL, GAE, No W/R/R ABD: Soft, ND/NT, NABS 4x Q EXT: No C/C/RLE edema +2, erythema almost resolved SKIN: Warm to touch PSYCH: No active psychosis, hallucinations, depression, SI/HI Objective Active Medications: Acetaminophen (Tylenol Tab*) 650 mg PO Q6H PRN PRN Reason: FEVER/PAIN Last Admin: 04/13/18 13:37 Dose: 650 mg Amlodipine Besylate (Norvasc Tab*) 2.5 mg PO DAILY [facility] Last Admin: 04/13/18 07:46 Dose: 2.5 mg Docusate Sodium (Colace Cap*) 200 mg PO BID [facility] Last Admin: 04/13/18 07:45 Dose: 200 mg Enoxaparin Sodium (Lovenox(*)) 30 mg SUBCUT Q24H [facility] Last Admin: 04/13/18 15:29 Dose: 30 mg Famotidine (Pepcid Tab*) 20 mg PO 2100 [facility] Last Admin: 04/12/18 21:39 Dose: 20 mg Gabapentin (Neurontin Cap(*)) 600 mg PO BID [facility] Last Admin: 04/13/18 07:44 Dose: 600 mg Hydroxychloroquine Sulfate (Plaquenil Tab*) 200 mg PO BID WITH MEALS [facility] Last Admin: 04/13/18 18:27 Dose: 200 mg Sodium Chloride (Ns 0.9% 1000 Ml*) 1,000 mls @ 100 mls/hr IV PER RATE [facility] Last Admin: 04/13/18 10:58 Dose: 100 mls/hr Cefepime HCl (Maxipime 2 Gm In Dextrose Duplex (*)) 2 gm in 50 mls @ 100 mls/ hr IV Q24H [facility] Last Admin: 04/13/18 04:54 Dose: 100 mls/hr Melatonin (Melatonin) 3 mg PO BEDTIME PRN; Protocol PRN Reason: Sleep Nebivolol (Bystolic Tab (Nf)) 5 mg PO DAILY [facility] Last Admin: 04/13/18 07:44 Dose: 5 mg Omeprazole (Prilosec Cap*) 20 mg PO DAILY@0600 [facility] Last Admin: 04/13/18 04:54 Dose: 20 mg Ondansetron HCl (Zofran Odt Tab*) 4 mg PO Q6H PRN PRN Reason: n/v Oxycodone HCl (Roxycodone Tab*) 2.5 mg PO Q4H PRN PRN Reason: PAIN Last Admin: 04/13/18 13:37 Dose: 2.5 mg Phenobarbital (Phenobarbital Tab(*)) 60 mg PO BID [facility] Last Admin: 04/13/18 07:45 Dose: 60 mg Vital Signs - 8 hr 04/13/18 04/13/18 04/13/18 13:37 15:38 15:53 Temperature 97.5 F Pulse Rate 68 Respiratory 18 18 16 Rate Blood Pressure 119/66 (mmHg) O2 Sat by Pulse 100 Oximetry Oxygen Devices in Use Now: None Result Diagrams: 04/13/18 06:22 04/13/18 06:22 Additional Lab and Data: Lab Results 04/11/18 04/11/18 04/11/18 Range/Units 16:36 16:36 16:36 WBC 10.0 (3.5-10.8) 10^3/ul RBC 3.99 L (4.00-5.40) 10^6/ul Hgb 11.2 L (12.0-16.0) g/dl Hct 34 L (35-47) % MCV 86 (80-97) fL MCH 28 (27-31) pg MCHC 33 (31-36) g/dl RDW 15 (10.5-15) % Plt Count 164 (150-450) 10^3/ul MPV 7.6 (7.4-10.4) um3 Neut % (Auto) 94.0 H (38-83) % Lymph % (Auto) 3.6 L (25-47) % [place] % (Auto) 2.1 (0-7) % Eos % (Auto) 0 (0-6) % Baso % (Auto) 0.3 (0-2) % Absolute Neuts (auto) 9.4 H (1.5-7.7) 10^3/ul Absolute Lymphs (auto) 0.4 L (1.0-4.8) 10^3/ul Absolute Monos (auto) 0.2 (0-0.8) 10^3/ul Absolute Eos (auto) 0 (0-0.6) 10^3/ul Absolute Basos (auto) 0 (0-0.2) 10^3/ul Absolute Nucleated RBC 0 10^3/ul Nucleated RBC % 0.1 INR (Anticoag Therapy) 1.00 (0.77-1.02) APTT 29.1 (26.0-36.3) seconds Sodium 137 (135-145) mmol/L Potassium 4.3 (3.5-5.0) mmol/L Chloride 97 L (101-111) mmol/L Carbon Dioxide 23 (22-32) mmol/L Anion Gap 17 H (2-11) mmol/L BUN 18 (6-24) mg/dL Creatinine 1.66 H (0.51-0.95) mg/dL Est GFR ( Amer) 41.0 (>60) Est GFR (Non-Af Amer) 31.8 (>60) BUN/Creatinine Ratio 10.8 (8-20) Glucose 85 (70-100) mg/dL Lactic Acid (0.5-2.0) mmol/L Calcium 9.4 (8.6-10.3) mg/dL Total Bilirubin 0.50 (0.2-1.0) mg/dL AST 19 (13-39) U/L ALT 10 (7-52) U/L Alkaline Phosphatase 41 (34-104) U/L Troponin I 0.00 (<0.04) ng/mL Total Protein 7.9 (6.4-8.9) g/dL Albumin 4.0 (3.2-5.2) g/dL Globulin 3.9 (2-4) g/dL Albumin/Globulin Ratio 1.0 (1-3) 04/11/18 Range/Units 16:36 WBC (3.5-10.8) 10^3/ul RBC (4.00-5.40) 10^6/ul Hgb (12.0-16.0) g/dl Hct (35-47) % MCV (80-97) fL MCH (27-31) pg MCHC (31-36) g/dl RDW (10.5-15) % Plt Count (150-450) 10^3/ul MPV (7.4-10.4) um3 Neut % (Auto) (38-83) % Lymph % (Auto) (25-47) % [place] % (Auto) (0-7) % Eos % (Auto) (0-6) % Baso % (Auto) (0-2) % Absolute Neuts (auto) (1.5-7.7) 10^3/ul Absolute Lymphs (auto) (1.0-4.8) 10^3/ul Absolute Monos (auto) (0-0.8) 10^3/ul Absolute Eos (auto) (0-0.6) 10^3/ul Absolute Basos (auto) (0-0.2) 10^3/ul Absolute Nucleated RBC 10^3/ul Nucleated RBC % INR (Anticoag Therapy) (0.77-1.02) APTT (26.0-36.3) seconds Sodium (135-145) mmol/L Potassium (3.5-5.0) mmol/L Chloride (101-111) mmol/L Carbon Dioxide (22-32) mmol/L Anion Gap (2-11) mmol/L BUN (6-24) mg/dL Creatinine (0.51-0.95) mg/dL Est GFR ( Amer) (>60) Est GFR (Non-Af Amer) (>60) BUN/Creatinine Ratio (8-20) Glucose (70-100) mg/dL Lactic Acid 0.9 (0.5-2.0) mmol/L Calcium (8.6-10.3) mg/dL Total Bilirubin (0.2-1.0) mg/dL AST (13-39) U/L ALT (7-52) U/L Alkaline Phosphatase (34-104) U/L Troponin I (<0.04) ng/mL Total Protein (6.4-8.9) g/dL Albumin (3.2-5.2) g/dL Globulin (2-4) g/dL Albumin/Globulin Ratio (1-3) Assess/Plan/Problems-Billing Assessment: - Patient Problems (1) Cellulitis Current Visit: Yes Status: Acute Code(s): L03.90 - CELLULITIS, UNSPECIFIED SNOMED Code(s): 496859348 Comment: #RLE Cellulitis: -Sepsis resolved -Continue Cefepime; if Blood cultures continue to be negative by tomorrow, consider narrowing coverage -Continue to follow cultures -Doppler U/S confirms no DVT (2) History of CVA (cerebrovascular accident) Current Visit: No Status: Acute Code(s): Z86.73 - PRSNL HX OF TIA (TIA), AND CEREB INFRC W/O RESID DEFICITS SNOMED Code(s): 773849162 Comment: #Left MCA CVA, S/P Right hemiparesis: -Thought to be due to the complication of her SLE -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 Uses cane to ambulate. Contractures on right side. (3) Lupus Current Visit: No Status: Chronic Code(s): M32.9 - SYSTEMIC LUPUS ERYTHEMATOSUS, UNSPECIFIED SNOMED Code(s): 84813702 Comment: #SLE: -Continue Hydroxychloroquine (4) CKD (chronic kidney disease) stage 3, GFR 30-59 ml/min Current Visit: No Status: Acute Code(s): N18.3 - CHRONIC KIDNEY DISEASE, STAGE 3 (MODERATE) SNOMED Code(s): 386880576 Comment: #Acute on Chronic renal failure/injury: -Likely due to pre-renal cause given mild sepsis on presentation -Continue IVFs (5) Seizure disorder Current Visit: Yes Status: Acute Code(s): G40.909 - EPILEPSY, UNSP, NOT INTRACTABLE, WITHOUT STATUS EPILEPTICUS SNOMED Code(s): 347392765 Comment: #Seizure d/o, history of: -Continue Gabapentin and Phenobarbital (6) GERD (gastroesophageal reflux disease) Current Visit: No Status: Chronic Code(s): K21.9 - GASTRO-ESOPHAGEAL REFLUX DISEASE WITHOUT ESOPHAGITIS SNOMED Code(s): 117557912 Comment: #GERD: -Continue Omeprazole (7) DVT prophylaxis Current Visit: No Status: Acute Onset Date: 04/19/15 Code(s): AXX1007 - SNOMED Code(s): 758880216 Comment: -Pt at high risk for developing DVT, however, since GFR very close to cut off will place pt on low dose Lovenox Status and Disposition: -Pt a resident of [facility]? -Back to [facility] with home PT when ready
[2018-04-13] MEDS: Famotidine TAB* 20 MG PO SCH (21:48)
[2018-04-14] MEDS: Omeprazole CAP* 20 MG PO SCH (04:55)
[2018-04-14] MEDS: Acetaminophen TAB* 325 MG PO PRN (04:55)
[2018-04-14] MEDS: oxyCODONE TAB* 5 MG TAB PO PRN (04:56)
[2018-04-14] MEDS: Cefepime 2 GM in Dextrose(*) 2 GM/50 ML BAG IV SCH (04:56)
--- NOTE | 2018-04-14 07:52 | PN ---
Subjective Date of Service: 04/14/18 Interval History: Pt is feeling ok. Overall she thinks she is improving in terms of the pain along the R leg and her weakness. She had a BM that did not have any blood in it. She denies SOB or chest pain. Objective Active Medications: Acetaminophen (Tylenol Tab*) 650 mg PO Q6H PRN PRN Reason: FEVER/PAIN Last Admin: 04/14/18 04:55 Dose: 650 mg Amlodipine Besylate (Norvasc Tab*) 2.5 mg PO DAILY [facility] Last Admin: 04/13/18 07:46 Dose: 2.5 mg Docusate Sodium (Colace Cap*) 200 mg PO BID [facility] Last Admin: 04/13/18 21:47 Dose: 200 mg Enoxaparin Sodium (Lovenox(*)) 30 mg SUBCUT Q24H [facility] Last Admin: 04/13/18 15:29 Dose: 30 mg Famotidine (Pepcid Tab*) 20 mg PO 2100 [facility] Last Admin: 04/13/18 21:48 Dose: 20 mg Gabapentin (Neurontin Cap(*)) 600 mg PO BID [facility] Last Admin: 04/13/18 21:46 Dose: 600 mg Hydroxychloroquine Sulfate (Plaquenil Tab*) 200 mg PO BID WITH MEALS [facility] Last Admin: 04/13/18 18:27 Dose: 200 mg Sodium Chloride (Ns 0.9% 1000 Ml*) 1,000 mls @ 100 mls/hr IV PER RATE [facility] Last Admin: 04/13/18 21:45 Dose: 100 mls/hr Cefepime HCl (Maxipime 2 Gm In Dextrose Duplex (*)) 2 gm in 50 mls @ 100 mls/ hr IV Q24H [facility] Last Admin: 04/14/18 04:56 Dose: 100 mls/hr Melatonin (Melatonin) 3 mg PO BEDTIME PRN; Protocol PRN Reason: Sleep Nebivolol (Bystolic Tab (Nf)) 5 mg PO DAILY [facility] Last Admin: 04/13/18 07:44 Dose: 5 mg Omeprazole (Prilosec Cap*) 20 mg PO DAILY@0600 [facility] Last Admin: 04/14/18 04:55 Dose: 20 mg Ondansetron HCl (Zofran Odt Tab*) 4 mg PO Q6H PRN PRN Reason: n/v Oxycodone HCl (Roxycodone Tab*) 2.5 mg PO Q4H PRN PRN Reason: PAIN Last Admin: 04/14/18 04:56 Dose: 2.5 mg Phenobarbital (Phenobarbital Tab(*)) 60 mg PO BID [facility] Last Admin: 04/13/18 21:48 Dose: 60 mg Vital Signs - 8 hr 04/14/18 04/14/18 04/14/18 00:26 03:23 04:56 Temperature 98.3 F Pulse Rate 87 Respiratory 16 16 16 Rate Blood Pressure 139/77 (mmHg) O2 Sat by Pulse 97 Oximetry Oxygen Devices in Use Now: None Appearance: Middle aged female lying in bed sleeping, easily awakens to voice, NAD Eyes: No Scleral Icterus Ears/Nose/Mouth/Throat: Mucous Membranes Moist Respiratory: Symmetrical Chest Expansion and Respiratory Effort, Clear to Auscultation - anteriorly Cardiovascular: NL Sounds; No Murmurs; No JVD, RRR, - - R LE with non-pitting edema Abdominal: NL Sounds; No Tenderness; No Distention Extremities: No Clubbing, Cyanosis Skin: - - mild-moderate erythema of R lower leg/lateral thigh, hot to touch compared to L LE, non-tender Neurological: Alert and Oriented x 3 Result Diagrams: 04/13/18 06:22 04/13/18 06:22 Additional Lab and Data: Lab Results 04/11/18 04/11/18 04/11/18 Range/Units 16:36 16:36 16:36 WBC 10.0 (3.5-10.8) 10^3/ul RBC 3.99 L (4.00-5.40) 10^6/ul Hgb 11.2 L (12.0-16.0) g/dl Hct 34 L (35-47) % MCV 86 (80-97) fL MCH 28 (27-31) pg MCHC 33 (31-36) g/dl RDW 15 (10.5-15) % Plt Count 164 (150-450) 10^3/ul MPV 7.6 (7.4-10.4) um3 Neut % (Auto) 94.0 H (38-83) % Lymph % (Auto) 3.6 L (25-47) % [place] % (Auto) 2.1 (0-7) % Eos % (Auto) 0 (0-6) % Baso % (Auto) 0.3 (0-2) % Absolute Neuts (auto) 9.4 H (1.5-7.7) 10^3/ul Absolute Lymphs (auto) 0.4 L (1.0-4.8) 10^3/ul Absolute Monos (auto) 0.2 (0-0.8) 10^3/ul Absolute Eos (auto) 0 (0-0.6) 10^3/ul Absolute Basos (auto) 0 (0-0.2) 10^3/ul Absolute Nucleated RBC 0 10^3/ul Nucleated RBC % 0.1 INR (Anticoag Therapy) 1.00 (0.77-1.02) APTT 29.1 (26.0-36.3) seconds Sodium 137 (135-145) mmol/L Potassium 4.3 (3.5-5.0) mmol/L Chloride 97 L (101-111) mmol/L Carbon Dioxide 23 (22-32) mmol/L Anion Gap 17 H (2-11) mmol/L BUN 18 (6-24) mg/dL Creatinine 1.66 H (0.51-0.95) mg/dL Est GFR ( Amer) 41.0 (>60) Est GFR (Non-Af Amer) 31.8 (>60) BUN/Creatinine Ratio 10.8 (8-20) Glucose 85 (70-100) mg/dL Lactic Acid (0.5-2.0) mmol/L Calcium 9.4 (8.6-10.3) mg/dL Total Bilirubin 0.50 (0.2-1.0) mg/dL AST 19 (13-39) U/L ALT 10 (7-52) U/L Alkaline Phosphatase 41 (34-104) U/L Troponin I 0.00 (<0.04) ng/mL Total Protein 7.9 (6.4-8.9) g/dL Albumin 4.0 (3.2-5.2) g/dL Globulin 3.9 (2-4) g/dL Albumin/Globulin Ratio 1.0 (1-3) //18 Range/Units 16:36 WBC (3.5-10.8) 10^3/ul RBC (4.00-5.40) 10^6/ul Hgb (12.0-16.0) g/dl Hct (35-47) % MCV (80-97) fL MCH (27-31) pg MCHC (31-36) g/dl RDW (10.5-15) % Plt Count (150-450) 10^3/ul MPV (7.4-10.4) um3 Neut % (Auto) (38-83) % Lymph % (Auto) (25-47) % Reagan % (Auto) (0-7) % Eos % (Auto) (0-6) % Baso % (Auto) (0-2) % Absolute Neuts (auto) (1.5-7.7) 10^3/ul Absolute Lymphs (auto) (1.0-4.8) 10^3/ul Absolute Monos (auto) (0-0.8) 10^3/ul Absolute Eos (auto) (0-0.6) 10^3/ul Absolute Basos (auto) (0-0.2) 10^3/ul Absolute Nucleated RBC 10^3/ul Nucleated RBC % INR (Anticoag Therapy) (0.77-1.02) APTT (26.0-36.3) seconds Sodium (135-145) mmol/L Potassium (3.5-5.0) mmol/L Chloride (101-111) mmol/L Carbon Dioxide (22-32) mmol/L Anion Gap (2-11) mmol/L BUN (6-24) mg/dL Creatinine (0.51-0.95) mg/dL Est GFR ( Amer) (>60) Est GFR (Non-Af Amer) (>60) BUN/Creatinine Ratio (8-20) Glucose (70-100) mg/dL Lactic Acid 0.9 (0.5-2.0) mmol/L Calcium (8.6-10.3) mg/dL Total Bilirubin (0.2-1.0) mg/dL AST (13-39) U/L ALT (7-52) U/L Alkaline Phosphatase (34-104) U/L Troponin I (<0.04) ng/mL Total Protein (6.4-8.9) g/dL Albumin (3.2-5.2) g/dL Globulin (2-4) g/dL Albumin/Globulin Ratio (1-3) Assess/Plan/Problems-Billing Ms Rao is a 57 yo F who has a h/o SLE and s/p CVA in her 20's with residual R sided weakness, seizure disorder and GERD who presented to the ER wtih c/o R LE pain and was found to be septic secondary to a R LE cellulitis. - Patient Problems (1) Anemia Current Visit: Yes Status: Acute Code(s): D64.9 - ANEMIA, UNSPECIFIED SNOMED Code(s): 603152915 Comment: The patient's H/H dropped significantly from admission to yesterday. I suspect she was volume deplete when she presented given the infection and sepsis. It may be that the drop is dilutional. Will recheck CBC now. Check iron, B12 studies. Check stool guaiac. (2) Cellulitis Current Visit: Yes Status: Acute Code(s): L03.90 - CELLULITIS, UNSPECIFIED SNOMED Code(s): 272659118 Comment: Sepsis by sepsis 2 guidelines was present on admission. She had no end organ dysfunction. Continue cefepime for now but ask for ID consult. R leg is still erythematous and hot to touch but she is no longer febrile and her WBC count is normal as of last check. Can likely narrow her coverage. Resume home dose of percocet for pain control. (3) Seizure disorder Current Visit: Yes Status: Acute Code(s): G40.909 - EPILEPSY, UNSP, NOT INTRACTABLE, WITHOUT STATUS EPILEPTICUS SNOMED Code(s): 298418049 Comment: Continue gabapentin and phenobarbital. (4) CKD (chronic kidney disease) stage 3, GFR 30-59 ml/min Current Visit: Yes Status: Acute Code(s): N18.3 - CHRONIC KIDNEY DISEASE, STAGE 3 (MODERATE) SNOMED Code(s): 673020027 Comment: Creatinine at baseline now. On admission creatinine was slightly above her baseline but does not definitionally met for acute renal failure or injury. Stop IVF . (5) Hypertension Current Visit: Yes Status: Chronic Code(s): I10 - ESSENTIAL (PRIMARY) HYPERTENSION SNOMED Code(s): 13641951 Comment: BP is under acceptable control. Continue nebivolol and amlodipine. (6) Lupus Current Visit: Yes Status: Chronic Code(s): M32.9 - SYSTEMIC LUPUS ERYTHEMATOSUS, UNSPECIFIED SNOMED Code(s): 72995454 Comment: Continue hydroxychloroquine. (7) GERD (gastroesophageal reflux disease) Current Visit: Yes Status: Chronic Code(s): K21.9 - GASTRO-ESOPHAGEAL REFLUX DISEASE WITHOUT ESOPHAGITIS SNOMED Code(s): 711544156 Comment: Continue famotidine (home medication) and stop omeprazole. (8) DVT prophylaxis Current Visit: Yes Status: Acute Onset Date: 04/19/15 Code(s): NJI5622 - SNOMED Code(s): 664138568 Comment: Lovenox- recheck H/H and if lower will d/c lovenox while working up dropping H/H. (9) Full code status Current Visit: Yes Status: Acute Onset Date: 04/19/15 Code(s): Z78.9 - OTHER SPECIFIED HEALTH STATUS SNOMED Code(s): 784107222 Status and Disposition: -Pt a resident of [facility]? -Back to [facility] with home PT when ready
[2018-04-14] MEDS ORDERED: Docusate CAP* 100 MG PO PRN (08:00)
[2018-04-14] MEDS ORDERED: oxyCODONE/Acetamin 5/325 MG* TAB PO PRN (08:06)
[2018-04-14] MEDS: Hydroxychloroquine TAB* 200 MG PO SCH ×2 (08:21→17:45)
[2018-04-14] MEDS: CMCS:Nebivolol TAB (NF) 2.5 MG TAB PO SCH (08:22)
[2018-04-14] MEDS: amLODIPine TAB* 5 MG PO SCH (08:25)
[2018-04-14] MEDS: PHENobarbital TAB(*) 30 MG PO SCH ×2 (08:26→20:00)
[2018-04-14] MEDS: Gabapentin CAP(*) 300 MG PO SCH ×2 (08:27→20:00)
[2018-04-14 08:51] LABS: Hematocrit 26 % (35-47); Hemoglobin 8.9 g/dl (12.0-16.0); Mean Corpuscular HGB Conc 34 g/dl (31-36); Mean Corpuscular Hemoglobin 29 pg (27-31); Mean Corpuscular Volume 84 fL (80-97); Mean Platelet Volume 7.7 um3 (7.4-10.4); Platelet Count 126 10^3/ul (150-450); Red Blood Count 3.09 10^6/ul (4.00-5.40); Red Cell Distribution Width 14 % (10.5-15); White Blood Count 3.2 10^3/ul (3.5-10.8)
[2018-04-14] MEDS: Enoxaparin(*) 30 MG/0.3 ML SYR SUBCUT SCH (15:17)
[2018-04-14] MEDS: Famotidine TAB* 20 MG PO SCH (20:00)
--- NOTE | 2018-04-15 00:20 | CONS ---
CONSULTATION REPORT: DATE OF CONSULT: 04/14/18 REQUESTING PHYSICIAN: Dr. Reyes. CONSULTING SERVICE: Infectious Disease. REASON FOR CONSULT: Right leg cellulitis. IMPRESSION: 1. Right lower extremity cellulitis, improving, likely due to group A streptococcus. 2. Lupus, on Plaquenil. 3. Chronic kidney disease. 4. History of MCA stroke. RECOMMENDATIONS: She got a dose of cefepime today, which she will carry through to tomorrow and I am changing her to clindamycin 300 mg by mouth 3 times a day for another week. She will continue to keep the leg elevated. HISTORY OF PRESENT ILLNESS: This is a 57-year-old woman with lupus and chronic kidney disease, admitted with right leg pain and swelling. She was felt to have cellulitis. She had ultrasound of her right leg that showed no DVT, a CT showed no abscess. She was started on ceftriaxone. The swelling, redness, and pain are much improved. She has had no pain or swelling in her ankle or knee. She has not had an infection like this in the past that she can recall. Her white count was initially 10, is down to 3 today. PAST MEDICAL HISTORY: 1. Lupus. 2. MCA stroke when she was in her 20s. 3. Chronic kidney disease. 4. Gastroesophageal reflux disease. 5. History of seizures. 6. She is status post bilateral total hip arthroplasties and hysterectomy. ALLERGIES: FENTANYL caused a rash. SULFA caused a rash. BACLOFEN caused change in mental status. NITROFURANTOIN caused leukopenia. MEDICATIONS: 1. Tylenol. 2. Amlodipine. 3. Docusate. 4. Cefepime 2 g a day. 5. Famotidine. 6. Enoxaparin. 7. Gabapentin. 8. Plaquenil. 9. Melatonin. 10. Nebivolol. 11. Vicodin. 12. Phenobarbital. SOCIAL HISTORY: She lives at [facility] by herself. No travel. No sick contacts. FAMILY HISTORY: No recurrent infections. REVIEW OF SYSTEMS: All negative to a 14-point review of systems except as noted above. PHYSICAL EXAM: Vital Signs: Temperature is 36, heart rate 70, respiratory rate 18, blood pressure 130/70, oxygen saturation 100% on room air. In general , she is awake, not in distress. Neurologic: She is oriented x3. Follows all commands. HEENT: There is no conjunctival hemorrhage. Oropharynx without lesions. Neck is supple without mass. Heart has regular rate and rhythm without murmurs, rubs, or gallops. Lungs are clear to auscultation bilaterally. Abdomen: Soft, nontender, nondistended. There are bowel sounds present. Skin: There is on her right anterior lower leg, mild diffuse erythema and warmth without tenderness, fluctuance, or crepitus. Erythema extends from below the knee to above the ankle. Musculoskeletal: There is no right knee effusion or right ankle effusion. LABORATORY DATA: Creatinine 1.2. White blood cell count 3, hemoglobin 8, platelets 126. Urinalysis: Protein, leukocyte esterase. Please see impressions and recommendations as outlined above, which I have discussed with Dr. Reyes. Thanks for asking me to see Ms. Rao in consultation. [id number]/CPS #: [id number] [email or web address]
[2018-04-15 06:06] LABS: Hematocrit 28 % (35-47); Hemoglobin 9.4 g/dl (12.0-16.0); Mean Corpuscular HGB Conc 34 g/dl (31-36); Mean Corpuscular Hemoglobin 29 pg (27-31); Mean Corpuscular Volume 84 fL (80-97); Mean Platelet Volume 7.1 um3 (7.4-10.4); Platelet Count 183 10^3/ul (150-450); Red Blood Count 3.27 10^6/ul (4.00-5.40); Red Cell Distribution Width 14 % (10.5-15); White Blood Count 3.5 10^3/ul (3.5-10.8)
[2018-04-15 06:24] LABS: EGFR Non-African American 52.9 (>60)
--- NOTE | 2018-04-15 07:31 | PN ---
Subjective Date of Service: 04/15/18 Interval History: Pt is feeling ok. She states she does not have much pain in the R LE. She thinks she will be able to manage at home. She thinks she will get around better at home. Objective Active Medications: Acetaminophen (Tylenol Tab*) 650 mg PO Q6H PRN PRN Reason: FEVER/PAIN Last Admin: 04/14/18 04:55 Dose: 650 mg Amlodipine Besylate (Norvasc Tab*) 2.5 mg PO DAILY [facility] Last Admin: 04/14/18 08:25 Dose: 2.5 mg Clindamycin HCl (Cleocin Cap*) 300 mg PO TID [facility] Docusate Sodium (Colace Cap*) 200 mg PO BID PRN PRN Reason: CONSTIPATION Enoxaparin Sodium (Lovenox(*)) 30 mg SUBCUT Q24H [facility] Last Admin: 04/14/18 15:17 Dose: 30 mg Famotidine (Pepcid Tab*) 20 mg PO 2100 [facility] Last Admin: 04/14/18 20:00 Dose: 20 mg Gabapentin (Neurontin Cap(*)) 600 mg PO BID [facility] Last Admin: 04/14/18 20:00 Dose: 600 mg Heparin Sodium (Porcine) (Heparin Flush Picc/Ml/Cvc(*)) 1 - 3 ml FLUSH 0600, 1800 [facility] PRN Reason: Protocol Last Admin: 04/15/18 05:35 Dose: 1 ml Hydroxychloroquine Sulfate (Plaquenil Tab*) 200 mg PO BID WITH MEALS [facility] Last Admin: 04/14/18 17:45 Dose: 200 mg Melatonin (Melatonin) 3 mg PO BEDTIME PRN; Protocol PRN Reason: Sleep Nebivolol (Bystolic Tab (Nf)) 5 mg PO DAILY [facility] Last Admin: 04/14/18 08:22 Dose: 5 mg Ondansetron HCl (Zofran Odt Tab*) 4 mg PO Q6H PRN PRN Reason: n/v Oxycodone/Acetaminophen (Percocet 5/325 Tab*) 1 tab PO Q4H PRN PRN Reason: PAIN Phenobarbital (Phenobarbital Tab(*)) 60 mg PO BID [facility] Last Admin: 04/14/18 20:00 Dose: 60 mg Vital Signs - 8 hr 04/15/18 04/15/18 00:14 03:20 Temperature 97.9 F Pulse Rate 81 Respiratory 16 16 Rate Blood Pressure 157/78 (mmHg) O2 Sat by Pulse 100 Oximetry Oxygen Devices in Use Now: None Appearance: Middle aged female lying in bed, NAD Eyes: No Scleral Icterus Ears/Nose/Mouth/Throat: Mucous Membranes Moist Respiratory: Symmetrical Chest Expansion and Respiratory Effort, Clear to Auscultation - anteriorly Cardiovascular: NL Sounds; No Murmurs; No JVD, RRR, No Edema Abdominal: NL Sounds; No Tenderness; No Distention Extremities: No Clubbing, Cyanosis Skin: No Nodules or Sclerosis, - - much less erythema noted to R LE Neurological: Alert and Oriented x 3, - - R UE contracture Result Diagrams: 04/15/18 05:50 04/15/18 05:50 Additional Lab and Data: Lab Results 04/11/18 04/11/18 04/11/18 Range/Units 16:36 16:36 16:36 WBC 10.0 (3.5-10.8) 10^3/ul RBC 3.99 L (4.00-5.40) 10^6/ul Hgb 11.2 L (12.0-16.0) g/dl Hct 34 L (35-47) % MCV 86 (80-97) fL MCH 28 (27-31) pg MCHC 33 (31-36) g/dl RDW 15 (10.5-15) % Plt Count 164 (150-450) 10^3/ul MPV 7.6 (7.4-10.4) um3 Neut % (Auto) 94.0 H (38-83) % Lymph % (Auto) 3.6 L (25-47) % [place] % (Auto) 2.1 (0-7) % Eos % (Auto) 0 (0-6) % Baso % (Auto) 0.3 (0-2) % Absolute Neuts (auto) 9.4 H (1.5-7.7) 10^3/ul Absolute Lymphs (auto) 0.4 L (1.0-4.8) 10^3/ul Absolute Monos (auto) 0.2 (0-0.8) 10^3/ul Absolute Eos (auto) 0 (0-0.6) 10^3/ul Absolute Basos (auto) 0 (0-0.2) 10^3/ul Absolute Nucleated RBC 0 10^3/ul Nucleated RBC % 0.1 INR (Anticoag Therapy) 1.00 (0.77-1.02) APTT 29.1 (26.0-36.3) seconds Sodium 137 (135-145) mmol/L Potassium 4.3 (3.5-5.0) mmol/L Chloride 97 L (101-111) mmol/L Carbon Dioxide 23 (22-32) mmol/L Anion Gap 17 H (2-11) mmol/L BUN 18 (6-24) mg/dL Creatinine 1.66 H (0.51-0.95) mg/dL Est GFR ( Amer) 41.0 (>60) Est GFR (Non-Af Amer) 31.8 (>60) BUN/Creatinine Ratio 10.8 (8-20) Glucose 85 (70-100) mg/dL Lactic Acid (0.5-2.0) mmol/L Calcium 9.4 (8.6-10.3) mg/dL Total Bilirubin 0.50 (0.2-1.0) mg/dL AST 19 (13-39) U/L ALT 10 (7-52) U/L Alkaline Phosphatase 41 (34-104) U/L Troponin I 0.00 (<0.04) ng/mL Total Protein 7.9 (6.4-8.9) g/dL Albumin 4.0 (3.2-5.2) g/dL Globulin 3.9 (2-4) g/dL Albumin/Globulin Ratio 1.0 (1-3) 04/11/18 Range/Units 16:36 WBC (3.5-10.8) 10^3/ul RBC (4.00-5.40) 10^6/ul Hgb (12.0-16.0) g/dl Hct (35-47) % MCV (80-97) fL MCH (27-31) pg MCHC (31-36) g/dl RDW (10.5-15) % Plt Count (150-450) 10^3/ul MPV (7.4-10.4) um3 Neut % (Auto) (38-83) % Lymph % (Auto) (25-47) % [place] % (Auto) (0-7) % Eos % (Auto) (0-6) % Baso % (Auto) (0-2) % Absolute Neuts (auto) (1.5-7.7) 10^3/ul Absolute Lymphs (auto) (1.0-4.8) 10^3/ul Absolute Monos (auto) (0-0.8) 10^3/ul Absolute Eos (auto) (0-0.6) 10^3/ul Absolute Basos (auto) (0-0.2) 10^3/ul Absolute Nucleated RBC 10^3/ul Nucleated RBC % INR (Anticoag Therapy) (0.77-1.02) APTT (26.0-36.3) seconds Sodium (135-145) mmol/L Potassium (3.5-5.0) mmol/L Chloride (101-111) mmol/L Carbon Dioxide (22-32) mmol/L Anion Gap (2-11) mmol/L BUN (6-24) mg/dL Creatinine (0.51-0.95) mg/dL Est GFR ( Amer) (>60) Est GFR (Non-Af Amer) (>60) BUN/Creatinine Ratio (8-20) Glucose (70-100) mg/dL Lactic Acid 0.9 (0.5-2.0) mmol/L Calcium (8.6-10.3) mg/dL Total Bilirubin (0.2-1.0) mg/dL AST (13-39) U/L ALT (7-52) U/L Alkaline Phosphatase (34-104) U/L Troponin I (<0.04) ng/mL Total Protein (6.4-8.9) g/dL Albumin (3.2-5.2) g/dL Globulin (2-4) g/dL Albumin/Globulin Ratio (1-3) Assess/Plan/Problems-Billing Ms Rao is a 57 yo F who has a h/o SLE and s/p CVA in her 20's with residual R sided weakness, seizure disorder and GERD who presented to the ER wt c/o R LE pain and was found to be septic secondary to a R LE cellulitis. - Patient Problems (1) Anemia Current Visit: Yes Status: Acute Code(s): D64.9 - ANEMIA, UNSPECIFIED SNOMED Code(s): 837711217 Comment: H/H trending up without intervention. I suspect the drop was dilutional. Her baseline Hb ranges from ~9.5-11. She appears to have anemia of chronic disease (likely related to her lupus). She will need her H/H followed as an outpatient. (2) Cellulitis Current Visit: Yes Status: Acute Code(s): L03.90 - CELLULITIS, UNSPECIFIED SNOMED Code(s): 940694334 Comment: Appreciate ID consult yesterday. Abx changed to clindamycin to complete 7 more days of therapy. Less erythema today than yesterday, she is no longer febrile and her WBC count is normal. Plan for d/c home today. (3) Seizure disorder Current Visit: Yes Status: Acute Code(s): G40.909 - EPILEPSY, UNSP, NOT INTRACTABLE, WITHOUT STATUS EPILEPTICUS SNOMED Code(s): 031595934 Comment: Continue gabapentin and phenobarbital. (4) CKD (chronic kidney disease) stage 3, GFR 30-59 ml/min Current Visit: Yes Status: Acute Code(s): N18.3 - CHRONIC KIDNEY DISEASE, STAGE 3 (MODERATE) SNOMED Code(s): 989209117 Comment: Creatinine at baseline now. Follow intermittently as outpatient. (5) Hypertension Current Visit: Yes Status: Chronic Code(s): I10 - ESSENTIAL (PRIMARY) HYPERTENSION SNOMED Code(s): 77011663 Comment: BP is under acceptable control. Continue nebivolol and amlodipine. (6) Lupus Current Visit: Yes Status: Chronic Code(s): M32.9 - SYSTEMIC LUPUS ERYTHEMATOSUS, UNSPECIFIED SNOMED Code(s): 08626917 Comment: Continue hydroxychloroquine. (7) GERD (gastroesophageal reflux disease) Current Visit: Yes Status: Chronic Code(s): K21.9 - GASTRO-ESOPHAGEAL REFLUX DISEASE WITHOUT ESOPHAGITIS SNOMED Code(s): 468692657 Comment: Continue famotidine. (8) DVT prophylaxis Current Visit: Yes Status: Acute Onset Date: 04/19/15 Code(s): PXQ4493 - SNOMED Code(s): 360652445 Comment: Lovenox (9) Full code status Current Visit: Yes Status: Acute Onset Date: 04/19/15 Code(s): Z78.9 - OTHER SPECIFIED HEALTH STATUS SNOMED Code(s): 109320922 Status and Disposition: d/c home today
[2018-04-15] MEDS: amLODIPine TAB* 5 MG PO SCH (09:33)
[2018-04-15] MEDS: PHENobarbital TAB(*) 30 MG PO SCH (09:33)
[2018-04-15] MEDS: CMCS:Nebivolol TAB (NF) 2.5 MG TAB PO SCH (09:34)
[2018-04-15] MEDS: Gabapentin CAP(*) 300 MG PO SCH (09:34)
[2018-04-15] MEDS: Hydroxychloroquine TAB* 200 MG PO SCH (09:34)
[2018-04-15] MEDS: Clindamycin CAP* 150 MG PO SCH ×2 (09:34→14:43)
[2018-04-15 11:52] VITALS: BP 147/82
--- NOTE | 2018-04-16 16:22 | DS ---
CC: Dr. Barrera * DISCHARGE SUMMARY: DATE OF ADMISSION: 04/11/18 DATE OF DISCHARGE: 04/15/18 PRIMARY CARE PROVIDER: Dr. Barrera. PRINCIPAL DIAGNOSIS: Right lower extremity cellulitis. SECONDARY DIAGNOSES: 1. History of left middle cerebral artery cerebrovascular accident. 2. Systemic lupus erythematosus. 3. Right-sided hemiparesis. 4. Seizure disorder. 5. Stage 3 chronic kidney disease. 6. Gastroesophageal reflux disease. DISCHARGE MEDICATIONS: 1. Percocet 5/325, 1 to 2 tabs p.o. q.4 hours p.r.n. pain. 2. Amlodipine 2.5 mg p.o. daily. 3. Phenobarbital 60 mg p.o. b.i.d. 4. Bystolic 5 mg p.o. daily. 5. Hydroxychloroquine 200 mg p.o. b.i.d. 6. Gabapentin 600 mg p.o. b.i.d. 7. Famotidine 20 mg p.o. q.h.s. 8. Calcium plus D 1 tab p.o. b.i.d. 9. Clindamycin 300 mg p.o. t.i.d. x7 days. HOSPITAL COURSE: Ms. Rao is a 57-year-old female who in her 20s sustained a left MCA CVA with resultant right-sided hemiparesis. This was felt to be secondary to her history of SLE. The patient had been in her usual state of health. Prior to her admission but beginning 3 days prior to admission, she developed aching along her entire right side. She reported fevers and chills, but denied sweats, chest pain, shortness of breath, palpitations. The patient was ultimately found to have a right lower extremity cellulitis. The patient was started on cefepime. She had a dramatic improvement of her fever. When she presented, her fever was as high as 102.9. She has been afebrile since . The patient's white blood cell count was never elevated. She was seen in consultation by Dr. Hoffmann from Infectious Disease on 04/14/18. At that time, he recommended changing her antibiotics to clindamycin. She will continue on clindamycin 300 mg p.o. t.i.d. x7 more days. At this point, the patient feels that she is able to get around as much as she needs to at home. She feels that she will be able to manage there. Her prescription has been sent to the employee pharmacy at [facility] and will be delivered to her room prior to discharge. FOLLOWUP CONCERNS: The patient is being discharged to home today, 04/15/18. ACTIVITY LEVEL: As tolerated. DIET: Regular. CONDITION ON DISCHARGE: Stable. TIME SPENT: Thirty-five minutes was spent discharging this patient. [id number]/[facility] #: [id number] MUSHT[facility]
== END 2018-04-15 14:45 | disposition home or self-care (01) | DRG 872 ==
LOC: ED 15:24 → MED 22:54
PROVIDERS: ADMIT Hospitalist; ATTEND Hospitalist
DX: A41.9 Sepsis, unspecified organism (principal); L03.115 Cellulitis of right lower limb; I69.351 Hemiplegia and hemiparesis following cerebral infarction affecting right dominant side; M32.9 Systemic lupus erythematosus, unspecified; G40.909 Epilepsy, unspecified, not intractable, without status epilepticus; B95.0 Streptococcus, group A, as the cause of diseases classified elsewhere; N18.3 Chronic kidney disease, stage 3 (moderate); K21.9 Gastro-esophageal reflux disease without esophagitis; Z96.653 Presence of artificial knee joint, bilateral; Z79.891 Long term (current) use of opiate analgesic; Z79.899 Other long term (current) drug therapy; Z88.2 Allergy status to sulfonamides; Z88.8 Allergy status to other drugs, medicaments and biological substances; Z82.49 Family history of ischemic heart disease and other diseases of the circulatory system; Z82.0 Family history of epilepsy and other diseases of the nervous system
CPT/HCPCS: 36415; 71045; 80048; 80053; 80061; 81003; 81015; 82607; 82728; 83540; 83550; 83605; 84484; 85025; 85027; 85610; 85730; 87040; 87086; 93005; 99285; A9270-GY; G8978-GP-CK; G8979-GP-CI; G8987-GO-CK; G8988-GO-CI; G8989-GO-CI; J0692; J0696; J1650; J2270

== ENCOUNTER 2018-09-29 00:30 | Emergency (ER) | payer MEDICARE ==
[2018-09-29] MEDS ORDERED: NS 0.9% 1000 ML* 1,000 ML IV ONE (01:38)
[2018-09-29] MEDS ORDERED: Metoclopramide IV* 5 MG/ML 2 ML VIAL IV SLOW PU ONE (01:38)
[2018-09-29] MEDS ORDERED: Morphine VIAL* 4 MG/ML VIAL (1 ml vial) IV ONE (01:38)
--- NOTE | 2018-09-29 01:41 | ED ---
Abdominal Pain/Female - HPI Summary HPI Summary: This patient is a 58 year old F presenting to [facility] with a chief complaint of intermittent left flank pain that began today. The patient rates the pain 7/10 in severity. Patient reports suprapubic pain. Patient denies n/v, dysuria, and burning with urination. Pt reports chronic right sided weakness due to CVA. She denies hx of kidney stones. - History of Current Complaint Chief Complaint: EDFlankPain Stated Complaint: SHARP PAIN ON LEFT SIDE Time Seen by Provider: 09/29/18 01:30 Hx Obtained From: Patient Onset/Duration: Still Present Timing: Intermittent Episode Lasting Severity Initially: Moderate Severity Currently: Moderate Pain Intensity: 7 Pain Scale Used: 0-10 Numeric Location: Suprapubic, Flank Radiates: No Associated Signs and Symptoms: Negative: Nausea, Vomiting Allergies/Adverse Reactions: Allergies Allergy/AdvReac Type Severity Reaction Status Date / Time fentanyl Allergy rash, Verified 04/11/18 21:20 hives, itchy Sulfa (Sulfonamide Allergy Facial Verified 04/11/18 21:20 Antibiotics) Redness/Flushing baclofen AdvReac Intermediate Altered Verified 04/11/18 16:34 Mental Status nitrofurantoin AdvReac Intermediate Leukopenia/ Verified 04/11/18 21:20 neutropenia PMH/Surg Hx/FS Hx/Imm Hx Endocrine/Hematology History: Reports: Hx Systemic Lupus Erythematosus, Hx Thyroid Disease - RIGHT LOBE THYROID IS ENLARGED, Denies: Hx Anticoagulant Therapy, Hx Bone Marrow Disease, Hx Diabetes, Hx Sickle Cell Disease, Hx Anemia Cardiovascular History: Reports: Hx Angina, Hx Deep Vein Thrombosis, Hx Hypertension Denies: Hx Congestive Heart Failure, Hx Myocardial Infarction, Hx Pacemaker/ ICD, Hx Valvular Heart Disease, Other Cardiovascular Problems/Disorders Comment Only: Hx Hypercholesterolemia - unkown Respiratory History: Denies: Hx Asthma, Hx Pulmonary Embolism, Hx Sleep Apnea, Other Respiratory Problems/Disorders GI History: Reports: Hx Gastroesophageal Reflux Disease - on meds, Hx Hiatal Hernia Denies: Hx Jaundice History: Reports: Hx Chronic Renal Failure - stage 2, Hx Kidney Infection, Other Problems/Disorders - UTI, vag abscess. SEES DR. Lozano ABOUT KIDNEYS Denies: Hx Renal Disease Musculoskeletal History: Reports: Hx Arthritis - SHOULDERS, Hx Back Problems - pain, Other Musculoskeletal History - osteopenia, r hip pain x 1 year, l hip hemiarthroplasty Denies: Hx Tendonitis Sensory History: Reports: Hx Deafness - [place] in right ear, Hx Hearing Problem - right hear clogged, Other Sensory Impairments - right hemiparesis secondary to CVA Hx Denies: Hx Cataracts, Hx Contacts or Glasses, Hx Glaucoma, Hx Hearing Aid Opthamlomology History: Reports: Other Sensory Impairments - right hemiparesis secondary to CVA Hx Denies: Hx Cataracts, Hx Contacts or Glasses, Hx Glaucoma Neurological History: Reports: Hx CVA - with right hemiplegia , Hx Migraine - ~ 1 MONTH AGO, HAPPENS OCCASIONALLY, Hx Seizures, Hx Transient Ischemic Attacks ( TIA), Other Neuro Impairments/Disorders - cva lupus migranes; 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 Denies: Hx Nerve Disease Psychiatric History: Denies: Hx Anxiety, Hx Depression, Hx Panic Disorder - Cancer History Hx Chemotherapy: No Hx Radiation Therapy: No - Surgical History Surgery Procedure, Year, and Place: BILATERAL hip replacement, hysterectomy, one ovary removed; VAGINAL ABSCESS I&D, STROKE 1986 Hx Anesthesia Reactions: No - Immunization History Date of Tetanus Vaccine: unk Date of Influenza Vaccine: unk Infectious Disease History: No Infectious Disease History: Reports: Hx of Known/Suspected MRSA - patient does not remember, Hx Shingles Denies: Hx Hepatitis, Traveled Outside the [place] in Last 30 Days - Family History Known Family History: Positive: Cardiac Disease, Hypertension, Diabetes - Social History Alcohol Use: None Hx Substance Use: No Substance Use Type: Reports: None Hx Tobacco Use: No Smoking Status (MU): Former Smoker Amount Used/How Often: only smoked for weeks Have You Smoked in the Last Year: No Review of Systems Gastrointestinal: Negative Negative: Vomiting, Nausea Positive: flank pain. Negative: burning, dysuria All Other Systems Reviewed And Are Negative: Yes Physical Exam - Summary Physical Exam Summary: VITAL SIGNS: Reviewed. GENERAL: Patient is a well-developed and nourished female who is lying comfortable in the stretcher. Patient is not in any acute respiratory distress. HEAD AND FACE: No signs of trauma. No ecchymosis, hematomas or skull depressions. No sinus tenderness. EYES: PERRLA, EOMI x 2, No injected conjunctiva, no nystagmus. EARS: Hearing grossly intact. Ear canals and tympanic membranes are within normal limits. MOUTH: Oropharynx within normal limits. NECK: Supple, trachea is midline, no adenopathy, no JVD, no carotid bruit, no c- spine tenderness, neck with full ROM. CHEST: Symmetric, no tenderness at palpation LUNGS: Clear to auscultation bilaterally. No wheezing or crackles. CVS: Regular rate and rhythm, S1 and S2 present, no murmurs or gallops appreciated. ABDOMEN: Soft, LUQ is TTP No signs of distention. No rebound no guarding, and no masses palpated. Bowel sounds are normal. EXTREMITIES: FROM in all major joints, no edema, no cyanosis or clubbing. NEURO: Alert and oriented x 3. No right sided hemiparesis. Speech is normal and follows commands. SKIN: Dry and warm Triage Information Reviewed: Yes Vital Signs On Initial Exam: Initial Vitals Temp Pulse Resp BP Pulse Ox 99.1 F 80 16 146/97 98 09/29/18 00:35 09/29/18 00:35 09/29/18 00:35 09/29/18 00:35 09/29/18 00:35 Vital Signs Reviewed: Yes Diagnostics - Vital Signs Vital Signs Temp Pulse Resp BP Pulse Ox 09/29/18 00:35 99.1 F 80 16 146/97 98 - Laboratory Result Diagrams: 09/29/18 04:03 09/29/18 02:20 Lab Statement: Any lab studies that have been ordered have been reviewed, and results considered in the medical decision making process. - CT CT ABD/Pelvis CT Interpretation Completed By: Radiologist Summary of CT Findings: No evidence of obstructing nephrolithiasis or hydronephrosis. ED physician has reviewed this radiology report. Abdominal Pain Fem Course/Dx - Course Course Of Treatment: This patient is a 58 year old F presenting to [facility] with a chief complaint of intermittent left flank pain that began today. The patient rates the pain 7/10 in severity. Patient reports suprapubic pain. Patient denies n/v, dysuria, and burning with urination. Pt reports chronic right sided weakness due to CVA. She denies hx of kidney stones. CT ABD/Pelvis reveals, per radiologist, No evidence of obstructing nephrolithiasis or hydronephrosis. ED physician has reviewed this radiology report. Bloodwork obtained. The UA was positive for UTI. In the ED course the patient was given levaquin, reglan, compazine, and morphine. Patient will be discharged with prescription for levaquin and follow up from PCP. The patient is agreeable with this plan. - Diagnoses Provider Diagnoses: UTI (urinary tract infection) Discharge - Sign-Out/Discharge Documenting (check all that apply): Patient Departure - Discharge Plan Condition: Stable Disposition: HOME Prescriptions: Levofloxacin TAB* [Levaquin TAB*] 500 mg PO DAILY #7 tab Patient Education Materials: Urinary Tract Infection in Women (DC) Referrals: Nabila Barrera MD [Primary Care Provider] - Additional Instructions: Follow up with your primary care physician in 1-3 days. RETURN TO THE EMERGENCY DEPARTMENT FOR CHANGING OR WORSENING SYMPTOMS. - Attestation Statements Document Initiated by Scribe: Yes Documenting Scribe: Trevor Irizarry Provider For Whom Scribe is Documenting (Include Credential): Salomón Hernandez MD Scribe Attestation: Trevor Emerson , scribed for Salomón Hernandez MD on 09/29/18 at 0609. Status of Scribe Document: Ready
[2018-09-29 02:37] LABS: INR 0.92 (0.77-1.02)
[2018-09-29 02:45] LABS: EGFR Non-African American 37.4 (>60)
[2018-09-29] MEDS ORDERED: Iodixanol* (CONTRAST) 320 MG/ML 100 ML SDV IV ONE (02:55)
[2018-09-29] MEDS ORDERED: Morphine VIAL* 4 MG/ML VIAL (1 ml vial) IM ONE (03:14)
[2018-09-29] MEDS ORDERED: PROCHLORPERAZINE INJ 5 MG/ML 2 ML VIAL IM ONE (03:15)
[2018-09-29 04:08] LABS: Urine Appearance Turbid; Urine Blood Negative (Negative); Urine Color Yellow; Urine Ketones Negative (Negative); Urine Protein 2+(100 mg/dL) (Negative); Urine Red Blood Cell 3+(>10/hpf) (Absent); Urine Specific Gravity 1.012 (1.010-1.030); Urine Urobilinogen Negative (Negative); Urine White Blood Cell 3+(>20/hpf) (Absent)
[2018-09-29 04:10] LABS: ABS Basophils 0 10^3/ul (0-0.2); ABS Eosinophils 0.1 10^3/ul (0-0.6); ABS Lymphocytes 1.4 10^3/ul (1.0-4.8); ABS Monocytes 0.3 10^3/ul (0-0.8); ABS Neutrophils 1.6 10^3/ul (1.5-7.7); ABS Nucleated RBC 0 10^3/ul; Eosinophil % 3.5 %; Hematocrit 29 % (35-47); Hemoglobin 9.5 g/dl (12.0-16.0); Lymphocyte % 40.1 %; Mean Corpuscular HGB Conc 33 g/dl (31-36); Mean Corpuscular Hemoglobin 28 pg (27-31); Mean Corpuscular Volume 84 fL (80-97); Mean Platelet Volume 7.5 fL (7.4-10.4); Nucleated Red Blood Cells % 0; Platelet Count 207 10^3/ul (150-450); Red Blood Count 3.42 10^6/ul (4.00-5.40); Red Cell Distribution Width 15 % (10.5-15); White Blood Count 3.6 10^3/ul (3.5-10.8)
[2018-09-29] MEDS ORDERED: Levofloxacin TAB* 500 MG PO ONE (04:35)
[2018-09-29 06:01] VITALS: BP 132/84
--- NOTE | 2018-10-01 06:13 | PN ---
Progress Note - Progress Note Date of Service: 10/01/18 Note: patient urine culture grew Klebsiella pneumonia >100,000. patient placed on levaquin which will wait for final culture to see if sensitive too.
== END 2018-09-29 06:22 | disposition home or self-care (01) ==
LOC: ED 00:30
DX: N39.0 Urinary tract infection, site not specified (principal); R10.84 Generalized abdominal pain; Z88.6 Allergy status to analgesic agent; Z88.2 Allergy status to sulfonamides; Z87.39 Personal history of other diseases of the musculoskeletal system and connective tissue; Z86.718 Personal history of other venous thrombosis and embolism; Z87.891 Personal history of nicotine dependence
CPT/HCPCS: 36415; 74176; 80053; 81003; 81015; 82150; 83690; 83735; 85025; 85610; 85730; 86140; 87077; 87086; 87186; 96372; 96374; 96375; 99284; J0780; J2270

== ENCOUNTER 2018-12-09 00:48 | Emergency (ER) | payer MEDICARE, MEDICAID ==
[2018-12-09] MEDS ORDERED: oxyCODONE/Acetamin 5/325 MG* TAB PO ONE (01:06)
[2018-12-09] MEDS ORDERED: LORazepam TAB(*) 1 MG PO ONE (01:07)
--- NOTE | 2018-12-09 01:19 | ED ---
Adult Trauma - HPI Summary HPI Summary: Patient is a 58 y/o F presenting to ED with complaints of right thigh pain, right shoulder pain s/p fall after losing her balance. However, she notes that she had shoulder pain from before the fall, Hx of chronic pain. Patient is prescribed oxycodone. PMHx of CVA, patient has residual right sided weakness from prior stroke. On triage, pain is rated 6/10, nothing is noted to aggravate/ alleviate Sx. Home medications and allergies - History of Current Complaint Chief Complaint: EDExtremityLower Stated Complaint: RT LEG PAIN Hx Obtained From: Patient Mechanism of Injury: Fall Ambulatory at the Scene: Yes Restraints: None Onset/Duration: Still Present Onset of Pain: Prior to Arrival Current Severity: Moderate - 6/10 Pain Intensity: 6 Location: Extremities - right shoulder, right thigh Aggravating Factor(s): Nothing Alleviating Factor(s): Nothing Associated Signs & Symptoms: Positive: Other: - right shoulder pain, right thigh pain - Additional Pertinent History Primary Care Physician: FLORA - Allergy/Home Medications Allergies/Adverse Reactions: Allergies Allergy/AdvReac Type Severity Reaction Status Date / Time fentanyl Allergy rash, Verified 12/09/18 00:57 hives, itchy Sulfa (Sulfonamide Allergy Facial Verified 12/09/18 00:57 Antibiotics) Redness/Flushing baclofen AdvReac Intermediate Altered Verified 12/09/18 00:57 Mental Status nitrofurantoin AdvReac Intermediate Leukopenia/ Verified 12/09/18 00:57 neutropenia Home Medications: Home Medications Famotidine TAB* [Pepcid 20 MG TAB*] 1 tab PO DAILY 12/09/18 [History Confirmed 12/09/18] PMH/Surg Hx/FS Hx/Imm Hx Endocrine/Hematology History: Reports: Hx Systemic Lupus Erythematosus, Hx Thyroid Disease - RIGHT LOBE THYROID IS ENLARGED, Denies: Hx Anticoagulant Therapy, Hx Bone Marrow Disease, Hx Diabetes, Hx Sickle Cell Disease, Hx Anemia Cardiovascular History: Reports: Hx Angina, Hx Deep Vein Thrombosis, Hx Hypertension Denies: Hx Congestive Heart Failure, Hx Myocardial Infarction, Hx Pacemaker/ ICD, Hx Valvular Heart Disease, Other Cardiovascular Problems/Disorders Comment Only: Hx Hypercholesterolemia - unkown Respiratory History: Denies: Hx Asthma, Hx Pulmonary Embolism, Hx Sleep Apnea, Other Respiratory Problems/Disorders GI History: Reports: Hx Gastroesophageal Reflux Disease - on meds, Hx Hiatal Hernia Denies: Hx Jaundice History: Reports: Hx Chronic Renal Failure - stage 2, Hx Kidney Infection, Other Problems/Disorders - UTI, vag abscess. SEES DR. Lozano ABOUT KIDNEYS Denies: Hx Renal Disease Musculoskeletal History: Reports: Hx Arthritis - SHOULDERS, Hx Back Problems - pain, Other Musculoskeletal History - osteopenia, r hip pain x 1 year, l hip hemiarthroplasty Denies: Hx Tendonitis Sensory History: Reports: Hx Deafness - [place] in right ear, Hx Hearing Problem - right hear clogged, Other Sensory Impairments - right hemiparesis secondary to CVA Hx Denies: Hx Cataracts, Hx Contacts or Glasses, Hx Glaucoma, Hx Hearing Aid Opthamlomology History: Reports: Other Sensory Impairments - right hemiparesis secondary to CVA Hx Denies: Hx Cataracts, Hx Contacts or Glasses, Hx Glaucoma Neurological History: Reports: Hx CVA - with right hemiplegia , Hx Migraine - ~ 1 MONTH AGO, HAPPENS OCCASIONALLY, Hx Seizures, Hx Transient Ischemic Attacks ( TIA), Other Neuro Impairments/Disorders - cva lupus migranes; 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 Denies: Hx Nerve Disease Psychiatric History: Denies: Hx Anxiety, Hx Depression, Hx Panic Disorder - Cancer History Hx Chemotherapy: No Hx Radiation Therapy: No - Surgical History Surgery Procedure, Year, and Place: BILATERAL hip replacement, hysterectomy, one ovary removed; VAGINAL ABSCESS I&D, STROKE 1986 Hx Anesthesia Reactions: No - Immunization History Date of Tetanus Vaccine: unk Date of Influenza Vaccine: unk Infectious Disease History: No Infectious Disease History: Reports: Hx of Known/Suspected MRSA - patient does not remember, Hx Shingles Denies: Hx Hepatitis, Traveled Outside the [place] in Last 30 Days - Family History Known Family History: Positive: Cardiac Disease, Hypertension, Diabetes - Social History Alcohol Use: None Hx Substance Use: No Substance Use Type: Reports: None Hx Tobacco Use: No Smoking Status (MU): Former Smoker Amount Used/How Often: only smoked for weeks Have You Smoked in the Last Year: No Review of Systems Negative: Fever - on vitals, temp is 98.9 F Musculoskeletal: Other - POSITIVE - RIGHT SHOULDER PAIN, RIGHT THIGH PAIN All Other Systems Reviewed And Are Negative: Yes Physical Exam - Summary Physical Exam Summary: VITAL SIGNS: Reviewed. GENERAL: Patient is a well-developed and nourished female who is lying comfortable in the stretcher. Patient is not in any acute respiratory distress. HEAD AND FACE: No signs of trauma. No ecchymosis, hematomas or skull depressions. No sinus tenderness. EYES: PERRLA, EOMI x 2, No injected conjunctiva, no nystagmus. EARS: Hearing grossly intact. Ear canals and tympanic membranes are within normal limits. MOUTH: Oropharynx within normal limits. NECK: Supple, trachea is midline, no adenopathy, no JVD, no carotid bruit, no c- spine tenderness, neck with full ROM. CHEST: Symmetric, no tenderness at palpation LUNGS: Clear to auscultation bilaterally. No wheezing or crackles. CVS: Regular rate and rhythm, S1 and S2 present, no murmurs or gallops appreciated. ABDOMEN: Soft, non-tender. No signs of distention. No rebound no guarding, and no masses palpated. Bowel sounds are normal. EXTREMITIES: FROM in all major joints, no edema, no cyanosis or clubbing. Tenderness of right shoulder, right thigh. NEURO: Alert and oriented x 3. No acute neurological deficits. Speech is normal and follows commands. There is right hemiparesis from previous stroke. SKIN: Dry and warm Triage Information Reviewed: Yes Vital Signs On Initial Exam: Initial Vitals Temp Pulse Resp BP Pulse Ox 98.9 F 75 18 141/90 98 12/09/18 00:51 12/09/18 00:51 12/09/18 00:51 12/09/18 00:51 12/09/18 00:51 Vital Signs Reviewed: Yes Diagnostics - Vital Signs Vital Signs Temp Pulse Resp BP Pulse Ox 12/09/18 01:02 77 97 12/09/18 00:51 98.9 F 75 18 141/90 98 - Laboratory Lab Statement: Any lab studies that have been ordered have been reviewed, and results considered in the medical decision making process. - Radiology right shoulder x-ray Radiology Interpretation Completed By: ED Physician Summary of Radiographic Findings: no acute process, pending official report right femur x-ray Radiology Interpretation Completed By: ED Physician Summary of Radiographic Findings: no acute process, pending official report right hip/pelvis x-ray Radiology Interpretation Completed By: ED Physician Summary of Radiographic Findings: no acute process, pending official report Re-Evaluation - Re-Evaluation First Eval Re-Evaluation Time: 02:49 Comment: Results of x-rays discussed with patient, she will be discharged to home. Patient is agreeable with this. Adult Trauma Course/Dx - Course Course Of Treatment: Patient is a 58 y/o F presenting to ED with complaints of right thigh pain, right shoulder pain s/p fall after losing her balance. However , she notes that she had shoulder pain from before the fall, Hx of chronic pain. Patient is prescribed oxycodone. PMHx of CVA, patient has residual right sided weakness from prior stroke. On physical exam, right hemiparesis from previous stroke is noted, tenderness of right thigh and right shoulder. During ED course, patient was given Percocet 5/325 1 tab PO ONCE and Ativan 1 mg PO ONCE. Right femur, shoulder, and hip/pelvis x-ray are negative. Results of x- rays discussed with patient, she will be discharged to home. Patient is agreeable with this. - Diagnoses Provider Diagnoses: Fall, Contusion Discharge - Sign-Out/Discharge Documenting (check all that apply): Patient Departure - discharge Patient Received Moderate/Deep Sedation with Procedure: No - NO PROCEDURES DONE - Discharge Plan Condition: Stable Disposition: HOME Patient Education Materials: Fall Prevention for Older Adults (ED), Contusion in Adults (ED) Referrals: Nabila Barrera MD [Primary Care Provider] - 2 Days Additional Instructions: RETURN TO THE EMERGENCY DEPARTMENT FOR CHANGING OR WORSENING SYMPTOMS. FOLLOW UP WITH PRIMARY CARE PHYSICIAN IN 1-2 DAYS. - Attestation Statements Document Initiated by Scribe: Yes Documenting Scribe: LILIANA MORRIS Provider For Whom Xiomaraibe is Documenting (Include Credential): JACK BOLAND MD Scribe Attestation: LILIANA Emerson , scribed for JACK BOLAND MD on 12/09/18 at 0310. Status of Scribe Document: Ready
[2018-12-09 03:47] VITALS: BP 113/72
== END 2018-12-09 04:42 | disposition home or self-care (01) ==
LOC: ED 00:48
DX: S40.011A Contusion of right shoulder, initial encounter (principal); M25.511 Pain in right shoulder; M79.651 Pain in right thigh; Z88.2 Allergy status to sulfonamides; Z87.39 Personal history of other diseases of the musculoskeletal system and connective tissue; M32.9 Systemic lupus erythematosus, unspecified; I10 Essential (primary) hypertension; Z86.718 Personal history of other venous thrombosis and embolism; Z87.891 Personal history of nicotine dependence; W19.XXXA Unspecified fall, initial encounter; Y92.9 Unspecified place or not applicable
CPT/HCPCS: 99283; A9270-GY

== ENCOUNTER 2019-01-02 01:02 | Emergency (ER) | payer MEDICARE, MEDICAID ==
--- NOTE | 2019-01-02 01:47 | ED ---
GI/ HPI - HPI Summary HPI Summary: This patient is a 58 year old F presenting to [facility] with a chief complaint of blood in the rectum that began approximately two weeks ago. The patient rates the pain 0/10 in severity. Symptoms aggravated by nothing. Symptoms alleviated by nothing. Patient reports hematochezia. Patient denies dizziness. - History of Current Complaint Chief Complaint: EDGIBleed Time Seen by Provider: 01/02/19 01:36 Stated Complaint: BLOOD IN MY RECTUM PER PT Hx Obtained From: Patient Onset/Duration: Started Weeks Ago, Atraumatic, Still Present Timing: Constant Severity: Mild Current Severity: Mild Pain Intensity: 0 Associated Signs and Symptoms: Positive: Other: - Positive hematochezia. Negative dizziness. Aggravating Factor(s): Nothing Alleviating Factor(s): Nothing - Additional Pertinent History Primary Care Physician: FLORA - Allergy/Home Medications Allergies/Adverse Reactions: Allergies Allergy/AdvReac Type Severity Reaction Status Date / Time fentanyl Allergy rash, Verified 01/02/19 01:48 hives, itchy Sulfa (Sulfonamide Allergy Facial Verified 01/02/19 01:48 Antibiotics) Redness/Flushing baclofen AdvReac Intermediate Altered Verified 01/02/19 01:48 Mental Status nitrofurantoin AdvReac Intermediate Leukopenia/ Verified 01/02/19 01:48 neutropenia Home Medications: Home Medications Aspir-Low 81 mg PO DAILY WITH MEAL 01/02/19 [History Confirmed 01/02/19] Gabapentin 600 mg PO BID 01/02/19 [History Confirmed 01/02/19] Rosuvastatin (NF) [Crestor (NF)] 5 mg PO DAILY WITH MEAL 01/02/19 [History Confirmed 01/02/19] PMH/Surg Hx/FS Hx/Imm Hx Previously Healthy: No Endocrine/Hematology History: Reports: Hx Systemic Lupus Erythematosus, Hx Thyroid Disease - RIGHT LOBE THYROID IS ENLARGED, Denies: Hx Anticoagulant Therapy, Hx Bone Marrow Disease, Hx Diabetes, Hx Sickle Cell Disease, Hx Anemia Cardiovascular History: Reports: Hx Angina, Hx Deep Vein Thrombosis, Hx Hypertension Denies: Hx Congestive Heart Failure, Hx Myocardial Infarction, Hx Pacemaker/ ICD, Hx Valvular Heart Disease, Other Cardiovascular Problems/Disorders Comment Only: Hx Hypercholesterolemia - unkown Respiratory History: Denies: Hx Asthma, Hx Pulmonary Embolism, Hx Sleep Apnea, Other Respiratory Problems/Disorders GI History: Reports: Hx Gastroesophageal Reflux Disease - on meds, Hx Hiatal Hernia Denies: Hx Jaundice History: Reports: Hx Chronic Renal Failure - stage 2, Hx Kidney Infection, Other Problems/Disorders - UTI, vag abscess. SEES DR. Lozano ABOUT KIDNEYS Denies: Hx Renal Disease Musculoskeletal History: Reports: Hx Arthritis - SHOULDERS, Hx Back Problems - pain, Other Musculoskeletal History - osteopenia, r hip pain x 1 year, l hip hemiarthroplasty Denies: Hx Tendonitis Sensory History: Reports: Hx Deafness - [place] in right ear, Hx Hearing Problem - right hear clogged, Other Sensory Impairments - right hemiparesis secondary to CVA Hx Denies: Hx Cataracts, Hx Contacts or Glasses, Hx Glaucoma, Hx Hearing Aid Opthamlomology History: Reports: Other Sensory Impairments - right hemiparesis secondary to CVA Hx Denies: Hx Cataracts, Hx Contacts or Glasses, Hx Glaucoma Neurological History: Reports: Hx CVA - with right hemiplegia , Hx Migraine - ~ 1 MONTH AGO, HAPPENS OCCASIONALLY, Hx Seizures, Hx Transient Ischemic Attacks ( TIA), Other Neuro Impairments/Disorders - cva lupus migranes; 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 Denies: Hx Nerve Disease Psychiatric History: Denies: Hx Anxiety, Hx Depression, Hx Panic Disorder - Cancer History Hx Chemotherapy: No Hx Radiation Therapy: No - Surgical History Surgery Procedure, Year, and Place: BILATERAL hip replacement, hysterectomy, one ovary removed; VAGINAL ABSCESS I&D, STROKE 1986 Hx Anesthesia Reactions: No - Immunization History Date of Tetanus Vaccine: unk Date of Influenza Vaccine: unk Infectious Disease History: No Infectious Disease History: Reports: Hx of Known/Suspected MRSA - patient does not remember, Hx Shingles Denies: Hx Hepatitis, Traveled Outside the [place] in Last 30 Days - Family History Known Family History: Positive: Cardiac Disease, Hypertension, Diabetes - Social History Occupation: Disabled Lives: With Family Alcohol Use: None Hx Substance Use: No Substance Use Type: Reports: None Hx Tobacco Use: No Smoking Status (MU): Former Smoker Amount Used/How Often: only smoked for weeks Have You Smoked in the Last Year: No Review of Systems Positive: Other - Positive blood in rectum and hematochezia Neurological: Other - Negative dizziness All Other Systems Reviewed And Are Negative: Yes Physical Exam - Summary Physical Exam Summary: VITAL SIGNS: Reviewed. GENERAL: Patient is a well-developed and nourished female who is lying comfortable in the stretcher. Patient is not in any acute respiratory distress. HEAD AND FACE: No signs of trauma. No ecchymosis, hematomas or skull depressions. No sinus tenderness. EYES: PERRLA, EOMI x 2, No injected conjunctiva, no nystagmus. EARS: Hearing grossly intact. Ear canals and tympanic membranes are within normal limits. MOUTH: Oropharynx within normal limits. NECK: Supple, trachea is midline, no adenopathy, no JVD, no carotid bruit, no c- spine tenderness, neck with full ROM. CHEST: Symmetric, no tenderness at palpation LUNGS: Clear to auscultation bilaterally. No wheezing or crackles. CVS: Regular rate and rhythm, S1 and S2 present, no murmurs or gallops appreciated. ABDOMEN: Soft, non-tender. No signs of distention. No rebound no guarding, and no masses palpated. Bowel sounds are normal. EXTREMITIES: FROM in all major joints, no edema, no cyanosis or clubbing. NEURO: Alert and oriented x 3. No acute neurological deficits. Speech is normal and follows commands. Right hemiplegia which is old. 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 External hemorrhoids at 7 oclock. Empty rectum , no stool, no masses. SKIN: Dry and warm Triage Information Reviewed: Yes Vital Signs On Initial Exam: Initial Vitals Temp Pulse Resp BP Pulse Ox 98.4 F 71 18 145/93 100 01/02/19 01:13 01/02/19 01:13 01/02/19 01:13 01/02/19 01:13 01/02/19 01:13 Vital Signs Reviewed: Yes Diagnostics - Vital Signs Vital Signs Temp Pulse Resp BP Pulse Ox 01/02/19 01:13 98.4 F 71 18 145/93 100 - Laboratory Result Diagrams: 01/02/19 02:43 01/02/19 02:43 Lab Statement: Any lab studies that have been ordered have been reviewed, and results considered in the medical decision making process. GIGU Course/Dx - Course Course Of Treatment: This patient is a 58 year old F presenting to [facility] with a chief complaint of blood in the rectum that began approximately two weeks ago. Physical Exam Findings: Right hemiplegia which is old. Rectal exam: external hemorrhoids at 7 oclock. Empty rectum, no stool, no masses. Bloodwork obtained. Patient will be discharged with follow up from GI and surgery. The patient is agreeable with this plan. - Diagnoses Provider Diagnoses: External hemorrhoids Discharge - Sign-Out/Discharge Documenting (check all that apply): Patient Departure - discharge home Patient Received Moderate/Deep Sedation with Procedure: No - Discharge Plan Condition: Stable Disposition: HOME Patient Education Materials: Hemorrhoids (ED) Referrals: Nabila Barrera MD [Primary Care Provider] - 2 Days Silas Cummings MD [Medical Doctor] - 2 Days Segundo Lynne MD [Medical Doctor] - 2 Days Additional Instructions: RETURN TO THE EMERGENCY DEPARTMENT FOR NEW OR WORSENING SYMPTOMS - Attestation Statements Document Initiated by Scribe: Yes Documenting Scribe: Lisandra Moore Provider For Whom Scribe is Documenting (Include Credential): Dr. Salomón Hernandez MD Scribe Attestation: Lisandra Emerson, scribed for Dr. Salomón Hernandez MD on 01/02/19 at 0314. Status of Scribe Document: Ready
[2019-01-02 02:50] LABS: ABS Basophils 0 10^3/ul (0-0.2); ABS Eosinophils 0 10^3/ul (0-0.6); ABS Lymphocytes 1.3 10^3/ul (1.0-4.8); ABS Monocytes 0.3 10^3/ul (0-0.8); ABS Neutrophils 1.6 10^3/ul (1.5-7.7); ABS Nucleated RBC 0 10^3/ul; Eosinophil % 1.5 %; Hematocrit 35 % (35-47); Hemoglobin 11.3 g/dl (12.0-16.0); Lymphocyte % 38.5 %; Mean Corpuscular HGB Conc 33 g/dl (31-36); Mean Corpuscular Hemoglobin 28 pg (27-31); Mean Corpuscular Volume 86 fL (80-97); Nucleated Red Blood Cells % 0.2; Platelet Count 233 10^3/ul (150-450); Red Blood Count 4.03 10^6/ul (4.00-5.40); Red Cell Distribution Width 14 % (10.5-15); White Blood Count 3.3 10^3/ul (3.5-10.8)
[2019-01-02 02:57] LABS: Activated Partial Thrombo Time 20.8 seconds (26.0-36.3); INR 0.79 (0.77-1.02)
[2019-01-02 03:06] LABS: Albumin 4.6 g/dL (3.2-5.2); BUN/Creatinine Ratio 14.4 (8-20); Calcium 9.7 mg/dL (8.6-10.3); EGFR African American 44.5 (>60); EGFR Non-African American 36.8 (>60); Globulin 4.4 g/dL (2-4); Potassium 3.7 mmol/L (3.5-5.0); Total Bilirubin 0.2 mg/dL (0.2-1.0)
[2019-01-02 04:33] VITALS: BP 123/87
== END 2019-01-02 04:32 | disposition home or self-care (01) ==
LOC: ED 01:02
DX: K64.4 Residual hemorrhoidal skin tags (principal); K92.1 Melena; M32.9 Systemic lupus erythematosus, unspecified; E78.00 Pure hypercholesterolemia, unspecified; E04.9 Nontoxic goiter, unspecified; I20.9 Angina pectoris, unspecified; I10 Essential (primary) hypertension; Z86.718 Personal history of other venous thrombosis and embolism; Z79.82 Long term (current) use of aspirin; K21.9 Gastro-esophageal reflux disease without esophagitis; N18.2 Chronic kidney disease, stage 2 (mild); I69.351 Hemiplegia and hemiparesis following cerebral infarction affecting right dominant side; Z96.643 Presence of artificial hip joint, bilateral; Z88.1 Allergy status to other antibiotic agents; Z88.5 Allergy status to narcotic agent; Z88.2 Allergy status to sulfonamides; Z88.8 Allergy status to other drugs, medicaments and biological substances; Z87.891 Personal history of nicotine dependence
CPT/HCPCS: 36415; 80053; 85025; 85610; 85730; 99282

== ENCOUNTER 2019-04-26 00:25 | Emergency (ER) | payer MEDICARE, MEDICAID ==
--- NOTE | 2019-04-26 02:34 | ED ---
Lower Extremity - HPI Summary HPI Summary: This patient is a 58 year old F presenting to ED with a chief complaint of RLE swelling since yesterday. She does not have a history of DVT. The patient rates the pain 7/10 in severity. Symptoms aggravated by nothing. Symptoms alleviated by nothing. Patient denies fever. - History of Current Complaint Chief Complaint: EDExtremityLower Stated Complaint: RIGHT LEG SWOLLEN PER PT Time Seen by Provider: 04/26/19 02:22 Hx Obtained From: Patient Onset/Duration: Still Present - Yesterday Severity Initially: Moderate Severity Currently: Moderate Pain Intensity: 7 Pain Scale Used: 0-10 Numeric Timing: Constant Location: Is Discrete @ - RLE Associated Signs And Symptoms: Negative: Fever Aggravating Factor(s): Nothing Alleviating Factor(s): Nothing - Allergies/Home Medications Allergies/Adverse Reactions: Allergies Allergy/AdvReac Type Severity Reaction Status Date / Time fentanyl Allergy rash, Verified 04/26/19 00:29 hives, itchy Sulfa (Sulfonamide Allergy Facial Verified 04/26/19 00:29 Antibiotics) Redness/Flushing baclofen AdvReac Intermediate Altered Verified 04/26/19 00:29 Mental Status nitrofurantoin AdvReac Intermediate Leukopenia/ Verified 04/26/19 00:29 neutropenia PMH/Surg Hx/FS Hx/Imm Hx Endocrine/Hematology History: Reports: Hx Systemic Lupus Erythematosus, Hx Thyroid Disease - RIGHT LOBE THYROID IS ENLARGED, Denies: Hx Anticoagulant Therapy, Hx Bone Marrow Disease, Hx Diabetes, Hx Sickle Cell Disease, Hx Anemia Cardiovascular History: Reports: Hx Angina, Hx Deep Vein Thrombosis, Hx Hypertension Denies: Hx Congestive Heart Failure, Hx Myocardial Infarction, Hx Pacemaker/ ICD, Hx Valvular Heart Disease, Other Cardiovascular Problems/Disorders Comment Only: Hx Hypercholesterolemia - unkown Respiratory History: Denies: Hx Asthma, Hx Pulmonary Embolism, Hx Sleep Apnea, Other Respiratory Problems/Disorders GI History: Reports: Hx Gastroesophageal Reflux Disease - on meds, Hx Hiatal Hernia Denies: Hx Jaundice History: Reports: Hx Chronic Renal Failure - stage 2, Hx Kidney Infection, Other Problems/Disorders - UTI, vag abscess. SEES DR. Lozano ABOUT KIDNEYS Denies: Hx Renal Disease Musculoskeletal History: Reports: Hx Arthritis - SHOULDERS, Hx Back Problems - pain, Other Musculoskeletal History - osteopenia, r hip pain x 1 year, l hip hemiarthroplasty Denies: Hx Tendonitis Sensory History: Reports: Hx Deafness - [place] in right ear, Hx Hearing Problem - right hear clogged, Other Sensory Impairments - right hemiparesis secondary to CVA Hx Denies: Hx Cataracts, Hx Contacts or Glasses, Hx Glaucoma, Hx Hearing Aid Opthamlomology History: Reports: Other Sensory Impairments - right hemiparesis secondary to CVA Hx Denies: Hx Cataracts, Hx Contacts or Glasses, Hx Glaucoma Neurological History: Reports: Hx CVA - with right hemiplegia , Hx Migraine - ~ 1 MONTH AGO, HAPPENS OCCASIONALLY, Hx Seizures, Hx Transient Ischemic Attacks ( TIA), Other Neuro Impairments/Disorders - cva lupus migranes; 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 Denies: Hx Nerve Disease Psychiatric History: Denies: Hx Anxiety, Hx Depression, Hx Panic Disorder - Cancer History Hx Chemotherapy: No Hx Radiation Therapy: No - Surgical History Surgery Procedure, Year, and Place: BILATERAL hip replacement, hysterectomy, one ovary removed; VAGINAL ABSCESS I&D, STROKE 1986 Hx Anesthesia Reactions: No - Immunization History Date of Tetanus Vaccine: unk Date of Influenza Vaccine: unk Infectious Disease History: Yes Infectious Disease History: Reports: Hx of Known/Suspected MRSA - patient does not remember, Hx Shingles Denies: Hx Hepatitis, Traveled Outside the [place] in Last 30 Days - Family History Known Family History: Positive: Cardiac Disease, Hypertension, Diabetes - Social History Alcohol Use: None Hx Substance Use: No Substance Use Type: Reports: None Hx Tobacco Use: No Smoking Status (MU): Former Smoker Amount Used/How Often: only smoked for weeks Have You Smoked in the Last Year: No Review of Systems Negative: Fever Positive: Edema - RLE swelling All Other Systems Reviewed And Are Negative: Yes Physical Exam - Summary Physical Exam Summary: Appearance: Well appearing, no pain distress Skin: warm, dry, reflects adequate perfusion Head/face: normal Eyes: EOMI, ANDREI ENT: normal Neck: supple, non-tender Respiratory: CTA, breath sounds present Cardiovascular: RRR, pulses symmetrical Abdomen: non-tender, soft Musculoskeletal: tenderness over right calf, no nv deficit Neuro: normal, sensory motor intact, A&Ox3 Triage Information Reviewed: Yes Vital Signs On Initial Exam: Initial Vitals Temp Pulse Resp BP Pulse Ox 98 F 86 16 133/88 97 04/26/19 00:26 04/26/19 00:26 04/26/19 00:26 04/26/19 00:26 04/26/19 00:26 Vital Signs Reviewed: Yes Diagnostics - Vital Signs Vital Signs Temp Pulse Resp BP Pulse Ox 04/26/19 02:20 69 04/26/19 02:18 69 138/83 99 04/26/19 00:26 98 F 86 16 133/88 97 - Laboratory Result Diagrams: 04/26/19 03:55 04/26/19 03:55 Lab Statement: Any lab studies that have been ordered have been reviewed, and results considered in the medical decision making process. Lower Extremity Course/Dx - Course Course Of Treatment: This patient is a 58 year old F presenting to ED with a chief complaint of RLE swelling since yesterday. Blood work obtained. Patient will be signed out to Dr. Webb at 0700 on 04/26/19 pending DVT US to rule out DVT. - Diagnoses Differential Diagnosis/HQI/PQRI: Positive: DVT, Sprain Provider Diagnoses: Right leg pain Discharge - Sign-Out/Discharge Documenting (check all that apply): Sign-Out Patient Signing out patient TO: Ameya Webb - Rule out DVT Patient Received Moderate/Deep Sedation with Procedure: No - Discharge Plan Condition: Stable Referrals: Nabila Barrera MD [Primary Care Provider] - - Billing Disposition and Condition Condition: STABLE - Attestation Statements Document Initiated by Xiomaraibmonet: Yes Documenting Scribe: Delmer Cai Provider For Whom Ophelia is Documenting (Include Credential): Servando Varela MD Scribe Attestation: I, Delmer Cai, scribed for Servando Varela MD on 04/26/19 at 0612. Scribe Documentation Reviewed: Yes Provider Attestation: The documentation as recorded by the Delmer agustin accurately reflects the service I personally performed and the decisions made by me, Servando Varela MD Status of Scribe Document: Viewed
[2019-04-26 04:22] LABS: ABS Eosinophils 0.1 10^3/ul (0-0.6); ABS Lymphocytes 1.7 10^3/ul (1.0-4.8); ABS Monocytes 0.3 10^3/ul (0-0.8); ABS Neutrophils 1.9 10^3/ul (1.5-7.7); Eosinophil % 3.1 %; Hematocrit 28 % (35-47); Hemoglobin 9.3 g/dL (12.0-16.0); Lymphocyte % 41.7 %; Mean Corpuscular HGB Conc 34 g/dL (31-36); Mean Corpuscular Hemoglobin 28 pg (27-31); Mean Corpuscular Volume 84 fL (80-97); Mean Platelet Volume 7.3 fL (7.4-10.4); Nucleated Red Blood Cells % 0.5; Platelet Count 232 10^3/uL (150-450); Red Blood Count 3.29 10^6 /uL (3.70-4.87); Red Cell Distribution Width 15 % (10-15); White Blood Count 4.1 10^3/uL (3.5-10.8)
[2019-04-26 04:36] LABS: Activated Partial Thrombo Time 34.5 seconds (26.0-38.0); INR 0.86 (0.82-1.09)
[2019-04-26 04:40] LABS: Albumin 3.5 g/dL (3.2-5.2); Albumin/Globulin Ratio 0.9 (1-3); BUN/Creatinine Ratio 17.8 (8-20); Calcium 8.6 mg/dL (8.6-10.3); EGFR African American 48.7 (>60); EGFR Non-African American 40.3 (>60); Globulin 3.9 g/dL (2-4); Potassium 4.3 mmol/L (3.5-5.0); Total Bilirubin 0.2 mg/dL (0.2-1.0); Total Protein 7.4 g/dL (6.4-8.9)
--- NOTE | 2019-04-26 07:06 | ED ---
Progress - Progress Note Progress Note: This pt was signed out from Dr. Varela to Dr. Webb at shift change at 07:00 on 04/26/19, pending disposition, awaiting US. Right lower extremity US, as read by radiologist IMPRESSION: No evidence of deep venous thrombosis is identified. Dr. Webb has reviewed this report. Re-Evaluation - Re-Evaluation First Eval Re-Evaluation Time: 08:11 Comment: Reviewed US results with the pt. She will be discharged home. Course/Dx - Course Course Of Treatment: This pt was signed out by Dr. Varela pending right leg US results. Ultrasound shows no evidence of deep venous thrombosis is identified. Discussed the results with the pt. She will be discharged home with follow up from her PCP in 2-3 days. Pt was given instructions to return to the ED for any worsening or new symptoms. She understands and agrees. - Diagnoses Provider Diagnoses: Right leg pain Discharge - Sign-Out/Discharge Documenting (check all that apply): Patient Departure - Discharge home, Receiving Sign-Out Receiving patient FROM: Servando Varela Patient Received Moderate/Deep Sedation with Procedure: No - Discharge Plan Condition: Stable Disposition: HOME Patient Education Materials: Leg Pain (ED) Referrals: Nabila Barrera MD [Primary Care Provider] - Additional Instructions: FOLLOW UP WITH YOUR PRIMARY CARE PROVIDER IN 2-3 DAYS. RETURN TO THE ED FOR ANY NEW OR WORSENING SYMPTOMS. - Billing Disposition and Condition Condition: STABLE Disposition: Home - Attestation Statements Document Initiated by Ophelia: Yes Documenting Scribe: Shefali Barton Provider For Whom Ophelia is Documenting (Include Credential): Ameya Webb MD Scribe Attestation: Shefali Emerson, scribed for Ameya Webb MD on 04/26/19 at 0940. Scribe Documentation Reviewed: Yes Provider Attestation: The documentation as recorded by the Shefali agustin accurately reflects the service I personally performed and the decisions made by , Ameya Webb MD Status of Scribe Document: Viewed
[2019-04-26 08:26] VITALS: BP 118/81
== END 2019-04-26 08:26 | disposition home or self-care (01) ==
LOC: ED 00:25
DX: M79.604 Pain in right leg (principal); Z88.5 Allergy status to narcotic agent; Z88.2 Allergy status to sulfonamides; Z88.8 Allergy status to other drugs, medicaments and biological substances; M32.9 Systemic lupus erythematosus, unspecified; Z86.718 Personal history of other venous thrombosis and embolism; K21.9 Gastro-esophageal reflux disease without esophagitis; I12.9 Hypertensive chronic kidney disease with stage 1 through stage 4 chronic kidney disease, or unspecified chronic kidney disease; N18.2 Chronic kidney disease, stage 2 (mild); M19.012 Primary osteoarthritis, left shoulder; M19.011 Primary osteoarthritis, right shoulder; Z87.891 Personal history of nicotine dependence; Z79.899 Other long term (current) drug therapy
CPT/HCPCS: 36415; 80053; 85025; 85610; 85730; 99282

== ENCOUNTER 2019-06-02 18:01 | Observation (INO) | payer MEDICARE, MEDICAID ==
[2019-06-02 18:27] LABS: ABS Eosinophils 0.1 10^3/ul (0-0.6); ABS Lymphocytes 1.3 10^3/ul (1.0-4.8); ABS Monocytes 0.3 10^3/ul (0-0.8); ABS Neutrophils 2.2 10^3/ul (1.5-7.7); Eosinophil % 1.8 %; Hematocrit 32 % (35-47); Hemoglobin 10.9 g/dL (12.0-16.0); Lymphocyte % 32.4 %; Mean Corpuscular HGB Conc 35 g/dL (31-36); Mean Corpuscular Hemoglobin 30 pg (27-31); Mean Corpuscular Volume 85 fL (80-97); Mean Platelet Volume 7.4 fL (7.4-10.4); Nucleated Red Blood Cells % 0.1; Platelet Count 213 10^3/uL (150-450); Red Cell Distribution Width 15 % (10-15); White Blood Count 3.9 10^3/uL (3.5-10.8)
[2019-06-02 18:36] LABS: INR 0.91 (0.82-1.09)
[2019-06-02 18:42] LABS: ALT 11 U/L (7-52); AST 19 U/L (13-39); Albumin 4.1 g/dL (3.2-5.2); Alkaline Phosphatase 57 U/L (34-104); Anion Gap 7 mmol/L (2-11); BUN/Creatinine Ratio 14.1 (8-20); Blood Urea Nitrogen 22 mg/dL (6-24); CO2 Carbon Dioxide 27 mmol/L (22-32); Calcium 9.3 mg/dL (8.6-10.3); Chloride 105 mmol/L (101-111); EGFR African American 41.1 (>60); Globulin 4.1 g/dL (2-4); Glucose 78 mg/dL (70-100); Potassium 4.2 mmol/L (3.5-5.0); Sodium 139 mmol/L (135-145); Total Protein 8.2 g/dL (6.4-8.9)
--- NOTE | 2019-06-02 18:57 | ED ---
Neurological HPI - HPI Summary HPI Summary: Time seen by provider: 1810. Rafiq palafox called at 190. The patient is a 59 y/o F arriving by ambulance to [facility] accompanied by son with a chief complaint of sudden onset near syncope and right-sided weakness today around 1720. She reports she was in an elevator on her way to her mothers , but she had sudden lightheadedness, so she sat down and then had weakness in the RLE. She additionally c/o mild headache, floaters in the left eye without pain, and numbness and tingling in the RUE and RLE. The LUE and LLE are normal. She states she felt normal this morning. She has hx of right-sided stroke age 27 but has been able to walk on both legs since using a cane with some lingering weakness in the RUE and RLE. She has chronic difficulty with speech. She denies any CP or SOB. She is not currently in pain. Taking ASA. 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 FHx: cardiac disease, DM, HTN. Former smoker, no EtOH, no substance use. Patient to CT at 190. - History of Current Complaint Chief Complaint: EDDizziness Stated Complaint: FEELS LIKE SHES GOING TO PASS OUT PER EMS Time Seen by Provider: 06/02/19 18:11 Hx Obtained From: Patient Onset/Duration: Sudden Onset, Started hours ago - at 1720, Still Present Timing: Sudden Onset Onset Severity: Moderate Current Severity: Moderate Neurological Deficit Location: RUE, RLE Headache Location: Diffuse (Right), Diffuse (Left) Pain Intensity: 0 Pain Scale Used: 0-10 Numeric Character: Weak - right-sided, Numbness/Tingling - right-sided Aggravating: Nothing Alleviating: Nothing Associated Signs and Symptoms: Positive: Headache - mild, Weakness - right-sided , Lightheadness - near syncope. Negative: Chest Pain, Shortness of Breath TPA Considered: No - contrainidication for hx of prior hemorrhagic stroke - Additional Pertinent History Primary Care Physician: FLORA - Allergy/Home Medications Allergies/Adverse Reactions: Allergies Allergy/AdvReac Type Severity Reaction Status Date / Time fentanyl Allergy rash, Verified 06/02/19 21:02 hives, itchy Sulfa (Sulfonamide Allergy Facial Verified 06/02/19 21:02 Antibiotics) Redness/Flushing baclofen AdvReac Intermediate Altered Verified 06/02/19 21:02 Mental Status nitrofurantoin AdvReac Intermediate Leukopenia/ Verified 06/02/19 21:02 neutropenia PMH/Surg Hx/FS Hx/Imm Hx Endocrine/Hematology History: Reports: Hx Systemic Lupus Erythematosus, Hx Thyroid Disease - RIGHT LOBE THYROID IS ENLARGED, Denies: Hx Anticoagulant Therapy, Hx Bone Marrow Disease, Hx Diabetes, Hx Sickle Cell Disease, Hx Anemia Cardiovascular History: Reports: Hx Angina, Hx Deep Vein Thrombosis, Hx Hypertension Denies: Hx Congestive Heart Failure, Hx Myocardial Infarction, Hx Pacemaker/ ICD, Hx Valvular Heart Disease, Other Cardiovascular Problems/Disorders Respiratory History: Denies: Hx Asthma, Hx Pulmonary Embolism, Hx Sleep Apnea, Other Respiratory Problems/Disorders GI History: Reports: Hx Gastroesophageal Reflux Disease - on meds, Hx Hiatal Hernia Denies: Hx Jaundice History: Reports: Hx Chronic Renal Failure - stage 2, Hx Kidney Infection, Other Problems/Disorders - UTI, vag abscess. SEES DR. Lozano ABOUT KIDNEYS Denies: Hx Renal Disease Musculoskeletal History: Reports: Hx Arthritis - SHOULDERS, Hx Back Problems - pain, Other Musculoskeletal History - osteopenia, r hip pain x 1 year, l hip hemiarthroplasty Denies: Hx Tendonitis Sensory History: Reports: Hx Deafness - [place] in right ear, Hx Hearing Problem - right hear clogged, Other Sensory Impairments - right hemiparesis secondary to CVA Hx Denies: Hx Cataracts, Hx Contacts or Glasses, Hx Glaucoma, Hx Hearing Aid Opthamlomology History: Reports: Other Sensory Impairments - right hemiparesis secondary to CVA Hx Denies: Hx Cataracts, Hx Contacts or Glasses, Hx Glaucoma Neurological History: Reports: Hx CVA - with right hemiplegia , Hx Migraine - ~ 1 MONTH AGO, HAPPENS OCCASIONALLY, Hx Seizures, Hx Transient Ischemic Attacks ( TIA), Other Neuro Impairments/Disorders - cva lupus migranes; 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 Denies: Hx Nerve Disease Psychiatric History: Denies: Hx Anxiety, Hx Depression, Hx Panic Disorder - Cancer History Hx Chemotherapy: No Hx Radiation Therapy: No - Surgical History Surgical History: Yes Surgery Procedure, Year, and Place: BILATERAL hip replacement, hysterectomy, one ovary removed; VAGINAL ABSCESS I&D, STROKE 1986 Hx Anesthesia Reactions: No - Immunization History Date of Tetanus Vaccine: unk Date of Influenza Vaccine: unk Infectious Disease History: No Infectious Disease History: Reports: Hx of Known/Suspected MRSA - patient does not remember, Hx Shingles Denies: Hx Hepatitis, Traveled Outside the [place] in Last 30 Days - Family History Known Family History: Positive: Cardiac Disease, Hypertension, Diabetes - Social History Alcohol Use: None Hx Substance Use: No Substance Use Type: Reports: None Hx Tobacco Use: No Smoking Status (MU): Former Smoker Amount Used/How Often: only smoked for weeks Have You Smoked in the Last Year: No Review of Systems Positive: Other - flaoters in left eye without pain Negative: Chest Pain Negative: Shortness Of Breath Positive: Headache - mild, Weakness - in RLE, NO weakness in LLE or LUE, Numbness - in RUE and RLE All Other Systems Reviewed And Are Negative: Yes Physical Exam - Summary Physical Exam Summary: Constitutional: anxious, NAD Skin: Warm, Dry HENT: Normocephalic; Atraumatic Eyes: Conjunctiva normal Neck: Musculoskeletal ROM normal neck. (-) JVD, (-) Nuchal rigidity Cardio: Rhythm regular, rate normal, Heart sounds normal; Intact distal pulses; Radial pulses are 2+ and symmetric. (-) Murmur Pulmonary/Chest wall: Effort normal. (-) Respiratory distress, (-) Wheezes, (-) Rales Abd: Soft. (-) Tenderness, (-) Distension, (-) Guarding, (-) Rebound Musculoskeletal: (-) Edema Lymph: (-) Cervical adenopathy Neuro: Alert, PERRL, Oriented x3, Dysarthria, Mild expressive aphasia, Right facial droop, RUE contracture with decreased sensation to the arm, Right leg with 2/5 weakness, (-) Dysmetria on L, (-) Nystagmus, ambulates w steady gait. GCS: 15. NIH: 11 (see scale). Psych: anxiousl Triage Information Reviewed: Yes Vital Signs On Initial Exam: Initial Vitals Temp Pulse Resp BP Pulse Ox 98.5 F 90 16 168/105 99 06/02/19 18:02 06/02/19 18:02 06/02/19 18:02 06/02/19 18:02 06/02/19 18:02 Vital Signs Reviewed: Yes - [place] Coma Scale Best Eye Response: 4 - Spontaneous Best Motor Response: 6 - Obeys Commands Best Verbal Response: 5 - Oriented Coma Scale Total: 15 Diagnostics - Vital Signs Vital Signs Temp Pulse Resp BP Pulse Ox 06/02/19 18:02 98.5 F 90 16 168/105 99 - Laboratory Lab Results: Lab Results 06/02/19 06/02/19 06/02/19 Range/Units 18:19 18:19 18:19 WBC 3.9 (3.5-10.8) 10^3/uL RBC 3.70 (3.70-4.87) 10^6 /uL Hgb 10.9 L (12.0-16.0) g/dL Hct 32 L (35-47) % MCV 85 (80-97) fL MCH 30 (27-31) pg MCHC 35 (31-36) g/dL RDW 15 (10-15) % Plt Count 213 (150-450) 10^3/uL MPV 7.4 (7.4-10.4) fL Neut % (Auto) 57.8 % Lymph % (Auto) 32.4 % Linn % (Auto) 7.2 % Eos % (Auto) 1.8 % Baso % (Auto) 0.8 % Absolute Neuts (auto) 2.2 (1.5-7.7) 10^3/ul Absolute Lymphs (auto) 1.3 (1.0-4.8) 10^3/ul Absolute Monos (auto) 0.3 (0-0.8) 10^3/ul Absolute Eos (auto) 0.1 (0-0.6) 10^3/ul Absolute Basos (auto) 0.0 (0-0.2) 10^3/ul Absolute Nucleated RBC 0.0 10^3/ul Nucleated RBC % 0.1 INR (Anticoag Therapy) 0.91 (0.82-1.09) Sodium 139 (135-145) mmol/L Potassium 4.2 (3.5-5.0) mmol/L Chloride 105 (101-111) mmol/L Carbon Dioxide 27 (22-32) mmol/L Anion Gap 7 (2-11) mmol/L BUN 22 (6-24) mg/dL Creatinine 1.56 H (0.51-0.95) mg/dL Est GFR ( Amer) 41.1 (>60) Est GFR (Non-Af Amer) 34.0 (>60) BUN/Creatinine Ratio 14.1 (8-20) Glucose 78 (70-100) mg/dL Calcium 9.3 (8.6-10.3) mg/dL Total Bilirubin 0.20 (0.2-1.0) mg/dL AST 19 (13-39) U/L ALT 11 (7-52) U/L Alkaline Phosphatase 57 (34-104) U/L Troponin I 0.00 (<0.04) ng/mL Total Protein 8.2 (6.4-8.9) g/dL Albumin 4.1 (3.2-5.2) g/dL Globulin 4.1 H (2-4) g/dL Albumin/Globulin Ratio 1.0 (1-3) Result Diagrams: 06/02/19 18:19 06/02/19 18:19 Lab Statement: Any lab studies that have been ordered have been reviewed, and results considered in the medical decision making process. - Radiology CXR Radiology Interpretation Completed By: ED Physician, Radiologist Summary of Radiographic Findings: No acute cardiopulmonary process. ED physician has reviewed this report. Pending official read. Brain CT Radiology Interpretation Completed By: Radiologist Summary of Radiographic Findings: Impression: 1. No acute intracranial abnormality. [place] Stroke Program Early CT Score (ASPECTS) = 10. 2. Chronic large left frontal and temporal lobe MCA territorial infarct. Associated brain atrophy. ED physician has reviewed this report. - CT Brain CT CT Interpretation Completed By: Radiologist Summary of CT Findings: Impression: 1. No acute intracranial abnormality. [place] Stroke Program Early CT Score (ASPECTS) = 10. 2. Chronic large left frontal and temporal lobe MCA territorial infarct. Associated brain atrophy. ED physician has reviewed this report. - EKG 182 Cardiac Rate: NL - 88 bpm Summary of EKG Findings: An EKG at 182 reveals normal sinus rhythm at 88 bpm, nml axis, nml intervals. No STEMI. 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 Non-Paretic Hand: Both Correctly Best Gaze (Only Horizontal Eye Movement): Normal Visual Field Testing: No Visual Loss Facial Paresis-Pt to Smile & Close Eyes or Grimace Symmetry: Minor Paralysis Motor Function - Right Arm: No Movement Motor Function - Left Arm: No Drift-Holds 10 Seconds Motor Function - Right Leg: No Effort Against [place] Motor Function - Left Leg: No Drift-Holds 10 Seconds Limb Ataxia-Must be out of Proportion to Weakness Present: Absent Sensory (Use Pinprick to Test Arms/Legs/Trunk/Face): Pinprick Less on Affected Best Language (Describe Picture, Name Items): Some Loss Dysarthria (Read Several Words): Slurs Some Words Extinction and Inattention: No Abnormality Total Score: 11 Re-Evaluation - Re-Evaluation First Eval Re-Evaluation Time: 19:36 Comment: D/w son neg brain CT Second Eval Re-Evaluation Time: 20:00 Comment: Patient is speaking with Dr. Perry on TeleStroke consult. Course/Dx - Course Course Of Treatment: 59-year-old female with a history of a left cerebral hemorrhagic stroke 30 years ago affecting her right arm and right leg with worsening right leg weakness, paresthesias to arm and leg as well as near syncopal episode. - Last known normal was 5:20 PM given reported new symptoms will activate a code Deleon. Patient is not a TPA candidate given history of hemorrhagic stroke. Initial NIH stroke scale score of 11. We'll also workup for near syncope with EKG, electrolytes, troponin, CBC. - Diagnoses Provider Diagnoses: Weakness, Near syncope During the Visit The Following Alert/Code Occurred: Code Palafox - called at 1904 - Physician Notifications Discussed Care Of Patient With: . [facility] Time Discussed With Above Provider: 19:22 Instructed by Provider To: Other - [facility] reports negative Brain CT with only chronic changes from previous stroke. At 194 I discussed the patient's case with Dr. Perry, neurology at [facility], who will call for TeleStroke consultation in 5-10 minutes. TeleStroke initiated by Dr. Perry at 1957. Neurologist recommends admission to medicine for stroke workup MRI and neurology consult in the morning. Will not pursue vessel imaging at this time. Dr. Rodriguez, hospitalist, accepts the patient for admission at 2046. - Critical Care Time Critical Care Time: 30-74 min - 30 minutes Discharge - Sign-Out/Discharge Documenting (check all that apply): Patient Departure - Patient is accepted for admission by Dr. Rodriguez. Patient Received Moderate/Deep Sedation with Procedure: No - Discharge Plan Condition: Stable Disposition: ADMITTED TO [facility] Referrals: Nabila Barrera MD [Primary Care Provider] - - Billing Disposition and Condition Condition: STABLE Disposition: Admitted to [facility] - Attestation Statements Document Initiated by Xiomaraibe: Yes Documenting Scribe: Tawanna Amos Provider For Whom Ophelia is Documenting (Include Credential): Dr. Gina Kyle MD Scribe Attestation: Tawanna Emerson, scribed for Dr. Gina Kyle MD on 06/02/19 at 2131. Scribe Documentation Reviewed: Yes Provider Attestation: The documentation as recorded by the Tawanna agustin accurately reflects the service I personally performed and the decisions made by me, Dr. Gina Kyle MD Status of Scribe Document: Viewed
[2019-06-02 19:20] LABS: Activated Partial Thrombo Time 36.5 seconds (26.0-38.0)
[2019-06-02 19:25] LABS: Cholesterol 164 mg/dL; LDL Cholesterol 38 mg/dL; Triglycerides 306 mg/dL
[2019-06-02] MEDS ORDERED: NS 0.9% 1000 ML** 1,000 ML IV ONE (19:30)
[2019-06-02 19:38] LABS: Urine Appearance Cloudy; Urine Bacteria 1+ (Absent); Urine Bilirubin Negative (Negative); Urine Blood Negative (Negative); Urine Color Yellow; Urine Glucose Negative (Negative); Urine Ketones Negative (Negative); Urine Nitrite Negative (Negative); Urine Protein 3+(>=500 mg/dL) (Negative); Urine Red Blood Cell 3+(>10/hpf) (Absent); Urine Specific Gravity 1.011 (1.010-1.030); Urine Squamous Epithelial Cell Present (Absent); Urine Urobilinogen Negative (Negative); Urine White Blood Cell 3+(>20/hpf) (Absent)
[2019-06-02] MEDS ORDERED: cefTRIAXone(*) 1 GM in NS 0.9% 50 ML* 50 ML IVPB ONE (20:49)
--- NOTE | 2019-06-02 21:46 | ED ---
Progress - Progress Note Progress Note: Procedure Note: Ultrasound Guided IV Access US IV Ultrasound Guided Peripheral IV Procedure Note Indication: Unable to obtain adequate IV access Skin Prep:Chlorhexidine Sterile Prep (allowed to dry for thirty seconds) Sterility: Gloves Insertion: Appropriate time out was taken. Ultrasound guidance was utilized for vein selection, to document selected vessel patency and real time ultrasound visualization of vascular needle entry into venous lumen. Insertion Site: L Forearm Type of catheter: 20 gauge catheter Blood return:yes Saline lock: yes Post Procedure: Estimated blood loss: minimal Re-Evaluation - Re-Evaluation First Eval Re-Evaluation Time: 19:36 Comment: D/w son neg brain CT Second Eval Re-Evaluation Time: 20:00 Comment: Patient is speaking with Dr. Perry on TeleStroke consult. Third Eval Re-Evaluation Time: 21:40 Course/Dx - Diagnoses Provider Diagnoses: Weakness, Near syncope - Provider Notifications Time Discussed With Above Provider: 19:22 Instructed by Provider To: Other - Critical Care Time Critical Care Time: 30-74 min - 30 minutes Discharge - Sign-Out/Discharge Documenting (check all that apply): Patient Departure - Patient is accepted for admission by Dr. Rodriguez. Patient Received Moderate/Deep Sedation with Procedure: No - Discharge Plan Condition: Stable Disposition: ADMITTED TO [facility] Referrals: Nabila Barrera MD [Primary Care Provider] - - Billing Disposition and Condition Condition: STABLE Disposition: Admitted to [facility] - Attestation Statements Document Initiated by Embere: Yes Documenting Scribe: Tawanna Amos Provider For Whom Embere is Documenting (Include Credential): Dr. Gina Kyle MD Scribe Attestation: Tawanna Emerson scribed for Dr. Gina Kyle MD on 06/02/19 at 2232. Scribe Documentation Reviewed: Yes Provider Attestation: The documentation as recorded by the Tawanna agustin accurately reflects the service I personally performed and the decisions made by me, Dr. Gina Kyle MD Status of Scribe Document: Viewed
[2019-06-02] MEDS ORDERED: NS 0.9% 1000 ML** 1,000 ML IV SCH (22:45)
[2019-06-02 23:06] LABS: % Iron Saturation 22 % (15-55); Iron 67 ug/dL (50-212); Total Iron Binding Capacity 300 mcg/dL (250-450); Transferrin 214 mg/dL (203-362)
[2019-06-02] MEDS ORDERED: Labetalol IV* 5 MG/ML 20 ML VIAL IV PUSH PRN (23:06)
[2019-06-02 23:21] LABS: TSH (Thyroid Stimulating Horm) 2.65 mcIU/mL (0.34-5.60)
[2019-06-02 23:27] LABS: Ferritin 36.3 ng/mL (11-307)
[2019-06-03] MEDS: PHENobarbital TAB(*) 30 MG PO SCH ×3 (01:22→22:03)
[2019-06-03] MEDS: Docusate CAP* 100 MG PO SCH (01:22)
--- NOTE | 2019-06-03 02:01 | HP ---
CC: Dr. Nabila Barrera * ADMISSION HISTORY AND PHYSICAL: DATE OF ADMISSION: CHIEF COMPLAINT: Dizziness. HISTORY OF PRESENT ILLNESS: This is a 59-year-old female with past medical history of hemorrhagic stroke in 1986; history of lupus; seizure disorder; chronic kidney disease, stage 3; anemia; neuropathy, here due to dizziness. The patient stated that she was going to her mom's place using the elevator and all of a sudden she started feeling lightheaded, so she sat down and she started having worsening weakness of her right lower extremity, which is already weak from a previous stroke. She also had some mild headache and floaters in the left eye without any pain and there was some increased tingling and numbness sensation on the both right upper extremity and lower extremity. Otherwise, left side was normal. She does have some chronic difficulty in speech from her stroke, but she was noted to be slightly worsened today. PAST MEDICAL HISTORY: As mentioned lupus, history of hypertension, history of stroke with right-sided weakness. There is some documentation that it could be a hemorrhagic stroke. However, the patient herself cannot recall the events, which was roughly 32 years ago when she was only 27 years old. History of seizure disorder likely secondary to her stroke; gastroesophageal reflux disease ; chronic kidney disease, stage 3. She does not have any dyslipidemia, but she takes cholesterol medication due to her stroke and she has some anemia and neuropathic pain. PAST SURGICAL HISTORY: She has had bilateral hip replacement. She has had some thyroid resection, but the patient does not recall. There is documentation of hysterectomy in the chart as well. There is documentation of DVT as well, however, the patient is denying any history of DVT to me and the son who was present at bedside could not recall the patient ever having any DVT and taking any blood thinners other than the low dose aspirin that she is currently on. HOME MEDICATIONS: The patient is currently on: 1. Nebivolol 5 mg oral daily. 2. Calcium carbonate with vitamin D 1 tablet oral p.o. b.i.d. 3. Aspirin 81 mg oral daily. 4. Amlodipine 10 mg oral daily. 5. Tylenol 650 mg q.6 hours p.r.n. pain. 6. Hydroxychloroquine 200 mg oral twice a day with meals. 7. Gabapentin 600 mg oral twice a day. 8. Famotidine 20 mg daily at bedtime. 9. Colace 200 mg oral daily. 10. Phenobarbital 64.8 mg oral p.o. b.i.d. 11. Floranex 1 tablet oral daily. 12. Crestor 5 mg oral daily. ALLERGIES: The patient is documented to have allergies to FENTANYL, SULFA ANTIBIOTICS, BACLOFEN, and NITROFURANTOIN. FAMILY HISTORY: Father at age roughly 60 with stroke. Mother is alive at age 83, otherwise healthy. SOCIAL HISTORY: She lives at [facility], ambulates with a walker. No history of smoking, alcohol, or drugs. Her healthcare proxy is her son, Yayo Rao and she is a full code. REVIEW OF SYSTEMS: The patient as mentioned in HPI, but she also mentions that she was having some increased urination and burning sensation with urination, but no dysuria. She did feel a little feverish today, but she did not think much of it, but otherwise, rest of the review of system was as per HPI. PHYSICAL EXAMINATION GENERAL: The patient is awake, alert, oriented x3. She did not appear to be in any acute respiratory distress. VITAL SIGNS: In ER, BP was noted to be 169/72, heart rate 89, saturating 100%, respiration rate 20, temperature documented as 98.5. HEAD AND NECK: Atraumatic, normocephalic. Bilateral pupils are reactive. Oral mucosa was moist. Neck: Supple. No jugular venous distention. LUNGS: Clear to auscultation bilaterally. No wheezing, rhonchi, or rales. HEART: S1, S2. Regular rate and rhythm. I could not appreciate any murmurs. ABDOMEN: Soft, nontender with positive bowel sounds. 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 Lower extremity strength on the right side was noted to be 2/5. On the left side, both upper and lower extremities were noted to be within normal limits. NEUROLOGIC: NIH stroke scale measured by the tele neurologist was noted to be 12, but this was all likely secondary to her previous stroke. DIAGNOSTIC STUDIES/LAB DATA: CBC shows WBC of 3.9, hemoglobin 10.9, hematocrit 32, platelets are noted to be at 213. Coagulation profile unremarkable. Comprehensive metabolic panel was unremarkable except for creatinine elevated at 1.56, which when compared to her baseline creatinine from 2 weeks ago was noted to be unchanged. Random glucose was noted to be 78. LFTs were within normal limits. LDL cholesterol was noted to be 38. Urinalysis was positive for 3+ leuk esterase and protein. EKG showed sinus rhythm at 88 beats per minute without any ST elevation when compared to an old EKG from March 2018. The waveform is essentially unchanged. CT of the brain suggests no acute abnormality with chronic large frontal and temporal lobe MCA territory infarct associated with brain atrophy. Portable chest x-ray was noted to be unremarkable. Official read by radiologist is still pending. Tele- neurology recommendation suggests the patient's symptoms may reflect recurrent cerebral ischemia versus anamnestic intensification of symptoms in the setting of possible UTI. She is not a TPA candidate. IMPRESSION: This is a 59-year-old female with previous history of stroke comes in again with worsening of her residual weakness and numbness, possible recurrent cerebrovascular accident versus worsening of symptoms in light of her urinary tract infection. ASSESSMENT AND PLAN: 1. Possible cerebrovascular accident and we will continue with neuro checks q.4 hours along with vital signs. We will allow permissive hypertension and labetalol IV push p.r.n. systolic blood pressure greater than 180 and brain MRI in the morning and increase aspirin dose to 325 mg daily and continue with dysphagia screen and PT/OT evaluation and consult neurology in the morning as well. 2. Urinary tract infection. We will start the patient on ceftriaxone and followup urine culture and titrate antibiotic accordingly. 3. History of hypertension. We will hold BP medications for permissive hypertension. 4. History of lupus. Restart on medication. 5. History of chronic kidney disease, stage 3. We will followup creatinine. 6. History of anemia. Workup with anemia panel. 7. DVT prophylaxis. The patient is on subcu heparin. [id number]/[facility] #: [id number] [facility] [place] DIVISIONScott
[2019-06-03] MEDS: Heparin VIAL(*) 5000 UNITS/ML VIAL (FIVE THOUSAND) SUBCUT SCH ×3 (06:15→22:07)
[2019-06-03] MEDS: Atorvastatin* 10 MG TAB PO SCH (08:22)
[2019-06-03] MEDS: Gabapentin CAP(*) 300 MG PO SCH ×2 (08:22→22:04)
[2019-06-03] MEDS: Aspirin EC TAB* 325 MG PO SCH (08:22)
[2019-06-03] MEDS: Famotidine TAB* 20 MG PO SCH (08:22)
[2019-06-03] MEDS: CMC: Nebivolol TAB (NF) 2.5 MG TAB PO SCH (08:23)
[2019-06-03] MEDS: Hydroxychloroquine TAB* 200 MG PO SCH ×2 (08:37→17:10)
[2019-06-03] MEDS: cefTRIAXone(*) 1 GM in NS 0.9% 50 ML* 50 ML IVPB SCH (15:29)
--- NOTE | 2019-06-03 16:42 | PN ---
Subjective Date of Service: 06/03/19 Interval History: Patient still feels diffusely weak and weak on her right side. Patient has some lower abdominal pain. Patient was diagnosed with a UTI 2 days ago and was on an unknown antibiotic but still has suprapubic tenderness. 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 Patient denies CP, SOB, Dizziness, dysuria, F/C, or other pain. Family History: Unchanged from Admission Social History: Unchanged from Admission Past Medical History: Unchanged from Admission Objective Active Medications: Acetaminophen (Tylenol Tab*) 650 mg PO Q6H PRN PRN Reason: FEVER/PAIN Aspirin (Ecotrin Ec Tab*) 325 mg PO DAILY [facility] Last Admin: 06/03/19 08:22 Dose: 325 mg Atorvastatin Calcium (Lipitor*) 10 mg PO DAILY WITH MEAL [facility]; Protocol Last Admin: 06/03/19 08:22 Dose: 10 mg Docusate Sodium (Colace Cap*) 200 mg PO 0900 [facility] Last Admin: 06/03/19 01:22 Dose: 200 mg Famotidine (Pepcid Tab*) 20 mg PO DAILY [facility] Last Admin: 06/03/19 08:22 Dose: 20 mg Gabapentin (Neurontin Cap(*)) 600 mg PO BID [facility] Last Admin: 06/03/19 08:22 Dose: 600 mg Heparin Sodium (Porcine) (Heparin Vial(*)) 5,000 units SUBCUT Q8HR [facility] Last Admin: 06/03/19 14:35 Dose: 5,000 units Heparin Sodium (Porcine) (Heparin Flush Picc/Ml/Cvc(*)) 1 - 3 ml FLUSH 0600, 1800 [facility]; Protocol Hydroxychloroquine Sulfate (Plaquenil Tab*) 200 mg PO BID WITH MEALS [facility] Last Admin: 06/03/19 08:37 Dose: 200 mg Sodium Chloride (Ns 0.9% 1000 Ml) 1,000 mls @ 75 mls/hr IV PER RATE [facility] Last Admin: 06/03/19 01:22 Dose: 75 mls/hr Ceftriaxone Sodium 1 gm/ (Sodium Chloride) 50 mls @ 100 mls/hr IVPB Q24H [facility] Last Admin: 06/03/19 15:29 Dose: 100 mls/hr Labetalol HCl (Trandate Iv*) 10 mg IV PUSH Q6H PRN PRN Reason: Systolic Bp Greater Than:180 Nebivolol (Bystolic Tab (Nf)) 5 mg PO DAILY [facility] Last Admin: 06/03/19 08:23 Dose: 5 mg Phenobarbital (Phenobarbital Tab(*)) 60 mg PO BID [facility] Last Admin: 06/03/19 08:21 Dose: 60 mg Vital Signs - 8 hr 06/03/19 06/03/19 12:10 12:15 Temperature 98.2 F Pulse Rate 64 Respiratory 17 16 Rate Blood Pressure 142/82 (mmHg) O2 Sat by Pulse 100 Oximetry Oxygen Devices in Use Now: None Appearance: Patient is a 59yo female who appears older than stated age and is sitting in the bed in [facility]. Eyes: No Scleral Icterus, PERRLA Ears/Nose/Mouth/Throat: NL Teeth, Lips, Gums, Clear Oropharnyx, Mucous Membranes Moist Neck: NL Appearance and Movements; NL JVP, Trachea Midline Respiratory: Symmetrical Chest Expansion and Respiratory Effort, Clear to Auscultation Cardiovascular: NL Sounds; No Murmurs; No JVD, RRR, No Edema Abdominal: NL Sounds; No Tenderness; No Distention, No Hepatosplenomegaly Lymphatic: No Cervical Adenopathy Extremities: No Edema, No Clubbing, Cyanosis Skin: No Rash or Ulcers, No Nodules or Sclerosis Neurological: Alert and Oriented x 3, - - Aphasia, Dense Right sided weakness. Result Diagrams: 06/02/19 18:19 06/02/19 18:19 Additional Lab and Data: Lab Results Microbiology and Other Data: Microbiology 06/02/19 19:25 Urine Culture - Preliminary Urine Escherichia Coli 06/03/19 01:19 Nasal Screen MRSA (PCR) - Final Nasal Mrsa Detected Assess/Plan/Problems-Billing Assessment: Patient is a 59yo female with a PMh For lupus, CVA, seizure disorder, with right sided hemiparesis who is admitted for worsening right sided weakness and UTI with concern for Seizure vs recrudescence of previous deficits who is improving slowly with treatment. - Patient Problems (1) Hemiplegia affecting dominant side Current Visit: No Status: Chronic Code(s): G81.90 - HEMIPLEGIA, UNSPECIFIED AFFECTING UNSPECIFIED SIDE SNOMED Code(s): 881436639 Comment: - Concern for recrudescence or seizure with Diego's Paralysis - No New CVA - Continue PT/OT. - Improving (2) CKD (chronic kidney disease) stage 3, GFR 30-59 ml/min Current Visit: No Status: Acute Code(s): N18.3 - CHRONIC KIDNEY DISEASE, STAGE 3 (MODERATE) SNOMED Code(s): 314943266 Comment: - Creatinine at baseline now. Follow intermittently as outpatient. - Likely due to Lupus (3) Seizure disorder Current Visit: No Status: Acute Code(s): G40.909 - EPILEPSY, UNSP, NOT INTRACTABLE, WITHOUT STATUS EPILEPTICUS SNOMED Code(s): 178207916 Comment: - Continue phenobarbital - EEG pending (4) UTI (urinary tract infection) Current Visit: No Status: Acute Comment: - On Antibiotic outpatient, unclear which one - E. Coli still in urine, pending sensitivities - Continue Ceftriaxone - Likely cause of recrudescence. (5) Lupus Current Visit: No Status: Chronic Code(s): M32.9 - SYSTEMIC LUPUS ERYTHEMATOSUS, UNSPECIFIED SNOMED Code(s): 30482803 Comment: - Continue hydroxychloroquine. - Possibly cause of Scotoma (6) Full code status Current Visit: No Status: Acute Onset Date: 04/19/15 Code(s): Z78.9 - OTHER SPECIFIED HEALTH STATUS SNOMED Code(s): 829877748 (7) Hypertension Current Visit: No Status: Chronic Code(s): I10 - ESSENTIAL (PRIMARY) HYPERTENSION SNOMED Code(s): 38736678 Comment: - BP is under acceptable control. Continue nebivolol and stop fluids (8) DVT prophylaxis Current Visit: No Status: Acute Onset Date: 04/19/15 Code(s): SDH1818 - SNOMED Code(s): 735296762 Comment: -Continue Heparin SQq8 Status and Disposition: Observation pending EEG
[2019-06-03 16:44] LABS: ABS Eosinophils 0.1 10^3/ul (0-0.6); ABS Lymphocytes 1.1 10^3/ul (1.0-4.8); ABS Monocytes 0.3 10^3/ul (0-0.8); ABS Neutrophils 1.7 10^3/ul (1.5-7.7); Eosinophil % 1.7 %; Hematocrit 28 % (35-47); Hemoglobin 9.4 g/dL (12.0-16.0); Lymphocyte % 34.4 %; Mean Corpuscular HGB Conc 34 g/dL (31-36); Mean Corpuscular Hemoglobin 29 pg (27-31); Mean Corpuscular Volume 85 fL (80-97); Mean Platelet Volume 7.5 fL (7.4-10.4); Nucleated Red Blood Cells % 0.1; Platelet Count 172 10^3/uL (150-450); Red Cell Distribution Width 14 % (10-15); White Blood Count 3.1 10^3/uL (3.5-10.8)
[2019-06-03 16:54] LABS: Calcium 8.2 mg/dL (8.6-10.3); Potassium 4.2 mmol/L (3.5-5.0)
[2019-06-03 16:59] LABS: BUN/Creatinine Ratio 14.2 (8-20); EGFR African American 55.6 (>60)
[2019-06-03] MEDS: Acetaminophen TAB* 325 MG PO PRN ×2 (17:06→23:48)
[2019-06-03 17:47] LABS: Folate 7.57 ng/mL (>3.99)
--- NOTE | 2019-06-03 17:56 | CONS ---
NEUROLOGY CONSULTATION NOTE: DATE OF CONSULT: 06/03/19 CONSULTING PROVIDER: Dr. Rodriguez. REASON FOR CONSULT: Worsening right leg weakness and lightheadedness. CHIEF COMPLAINT: Lightheadedness and right leg weakness. HISTORY OF PRESENT ILLNESS: Ms. Neetu Rao is a 59-year-old female with a history of stroke with what I suspect is hemorrhagic transformation in 1986 in the left MCA vascular distribution with residual right hemiparesis and contractures of the right upper extremity; poststroke seizure disorder, on phenobarbital; CKD, who has history of lupus, on Plaquenil, who presented to [facility] with intermittent dizziness. The patient uses a cane at baseline. She has baseline mild word finding difficulty and dysarthria. The patient apparently was using the elevator when suddenly she felt lightheaded. She had associated symptoms of right leg became slightly weaker. The symptoms persisted. Her family contacted EMS, and she was brought to the hospital for further evaluation. The patient also complains of a 4-day history of mild headache and floaters affecting the left eye. She denied any pain. She denied any double vision. She never had any similar symptoms before. She has not seen her wood machinist apprentice recently. An MRI of the brain was completed today and showed no acute intracranial abnormality and a remote large encephalomalacia involving the frontal and parietal lobe on the left. The patient has not had any recent seizures. PAST MEDICAL HISTORY: Lupus, hypertension, hemorrhagic stroke with right-sided weakness, poststroke seizures, GERD, CKD, dyslipidemia. PAST SURGICAL HISTORY: Bilateral hip replacement, history of thyroid resection , hysterectomy. MEDICATIONS: 1. Phenobarbital 64 mg p.o. b.i.d. 2. Calcium 1 tablet p.o. b.i.d. 3. Hydroxychloroquine 200 mg p.o. b.i.d. 4. Famotidine 20 mg p.o. at bedtime. 5. Bystolic 5 mg p.o. daily. 6. Acetaminophen 650 mg p.o. every 6 hours as needed. 7. Amlodipine 10 mg p.o. daily. 8. Docusate 200 mg p.o. daily. 9. Famotidine 1 tablet by mouth daily. 10. Rosuvastatin 5 mg p.o. daily. 11. Gabapentin 600 mg p.o. b.i.d. 12. Aspirin 81 mg p.o. daily. ALLERGIES: FENTANYL, SULFA ANTIBIOTICS, BACLOFEN, and NITROFURANTOIN. FAMILY HISTORY: Father of a stroke at age 60. Her mother is still alive. SOCIAL HISTORY: She lives in [facility]. Ambulates with a walker and a cane. There is no history of alcohol, tobacco, or drug use. REVIEW OF SYSTEMS: A 14-point review of systems was obtained and otherwise negative except for what was mentioned in the HPI. PHYSICAL EXAM: Vitals: Temperature of 98.2, pulse of 64, respiratory rate of 16, oxygen saturation 100% on room air, blood pressure of 142/82. General: Well- nourished, well-developed female, in no acute distress. Head: Atraumatic , normocephalic without any obvious abnormality. Eyes: Conjunctivae/sclerae are clear. Undilated direct ophthalmologic funduscopic examination was limited due to mild photophobia. There is no evidence of gross corneal laceration. Unable to evaluate for any retinal occlusion or retinal disease. Unable to visualize the disc. Lungs: Clear to auscultation bilaterally with no wheezing. Cardiac: Regular rate and rhythm with normal S1, S2. Extremities: Normal range of motion with no hammertoes or high arches. Skin: No skin lesions or lacerations. Psychiatric: Flat affect, depressed mood, difficult to establish rapport. Neurological: Mental Status: Alert, awake, oriented to person, place, time, and general circumstances. She has baseline spastic dysarthria. Cranial Nerves: Pupils equal, round, reactive to light. Extraocular muscles are intact. There is normal sensation in the face bilaterally, no facial asymmetry. Tongue is symmetric and midline with no atrophy or fasciculation. Motor: Nearly plegic on the right upper extremity and minimal movement of the right lower extremity graded as 2/5. She has normal full strength on the left upper and lower extremities. She has contracture and spasticity involving the right upper and lower extremities. Reflexes: 3+ in the right biceps, triceps, brachioradialis; 3+ in the knee; upgoing plantar response on the right; 2+ throughout the left upper and lower extremity reflexes. Sensation is diminished on the right face, arm, and leg to light touch and temperature sensation. Coordination: Normal [id number] on the left upper extremity. Gait: Wide based, required 1 person assist. No ataxia. DIAGNOSTIC STUDIES/LAB DATA: Labs, imaging, and other diagnostic testing. WBC 3.9, hemoglobin of 10.9, hematocrit of 32, platelet count of 213. Sodium of 139 , potassium 4.2, chloride 105, carbon dioxide 27, creatinine 1.56, LDL was 38. Urinalysis is positive for pyuria. Urine culture is positive for E. coli. The patient was started on antibiotic therapy with ceftriaxone. IMPRESSION AND RECOMMENDATIONS: Ms. Neetu Rao is a 59-year-old female with a history of what I suspect is a remote ischemic stroke with hemorrhagic transformation, who is currently on antiplatelet therapy, who developed poststroke seizures and currently on phenobarbital. She also has history of headaches, who presents with an episode of lightheadedness, worsening right hemiplegia, and floaters involving the left eye. Funduscopic examination was limited due to photophobia. 1. Lightheadedness and worsening right hemiplegia due to recrudescence of previous focal neurological deficit in the setting of urinary tract infection. Her MRI brain without contrast showed no evidence of acute stroke. She denied any neck pain, and therefore, I do not think this is related to a cervical cord pathology. I recommend to continue antibiotic therapy for the urinary tract infection. I do not suspect seizures since she did not have any witnessed convulsions or loss of consciousness. However, I do recommend obtaining an EEG to evaluate for any possible nonconvulsive seizures (less likely). Continue aspirin, statin therapy, and phenobarbital for the history of stroke and poststroke seizures. 2. Floaters involving the left eye. This is a new problem. She has experienced this for the past 3 days. The differential diagnosis here is posterior vitreous detachment, retinal artery occlusion, or migraine related auras. The latter is less likely given that it should not last for 4 total days. An urgent formal ophthalmologic examination done by an wood machinist apprentice is recommended. In the meantime, I recommend continuing Plaquenil unless the patient has any evidence of retinal or macular disease. Thereafter, she would need to discuss with her mold stacker about any alternative treatment for the lupus. I discussed these recommendations with Scott Perez. I do not have any further neurological recommendations at this time. Please contact me for any questions or concerns. [id number]/[facility] #: [id number] [facility]ICAL CENTERScott
[2019-06-04] MEDS ORDERED: oxyCODONE/Acetamin 5/325 MG* TAB PO ONE (04:06)
[2019-06-04] MEDS: Heparin VIAL(*) 5000 UNITS/ML VIAL (FIVE THOUSAND) SUBCUT SCH ×2 (06:15→15:27)
[2019-06-04] MEDS: CMC: Nebivolol TAB (NF) 2.5 MG TAB PO SCH (09:16)
[2019-06-04] MEDS: Docusate CAP* 100 MG PO SCH (09:17)
[2019-06-04] MEDS: Aspirin EC TAB* 325 MG PO SCH (09:17)
[2019-06-04] MEDS: Atorvastatin* 10 MG TAB PO SCH (09:17)
[2019-06-04] MEDS: PHENobarbital TAB(*) 30 MG PO SCH (09:17)
[2019-06-04] MEDS: Hydroxychloroquine TAB* 200 MG PO SCH (09:17)
[2019-06-04] MEDS: Famotidine TAB* 20 MG PO SCH (09:17)
[2019-06-04] MEDS: Gabapentin CAP(*) 300 MG PO SCH (09:17)
[2019-06-04] MEDS ORDERED: amLODIPine TAB* 5 MG PO SCH (12:00)
[2019-06-04 14:35] LABS: ABS Eosinophils 0.1 10^3/ul (0-0.6); ABS Lymphocytes 1.1 10^3/ul (1.0-4.8); ABS Monocytes 0.2 10^3/ul (0-0.8); ABS Neutrophils 1.3 10^3/ul (1.5-7.7); Hematocrit 31 % (35-47); Hemoglobin 10.4 g/dL (12.0-16.0); Lymphocyte % 40.9 %; Mean Corpuscular HGB Conc 33 g/dL (31-36); Mean Corpuscular Hemoglobin 28 pg (27-31); Mean Corpuscular Volume 84 fL (80-97); Mean Platelet Volume 7.2 fL (7.4-10.4); Nucleated Red Blood Cells % 0.1; Platelet Count 181 10^3/uL (150-450); Red Cell Distribution Width 15 % (10-15); White Blood Count 2.8 10^3/uL (3.5-10.8)
--- NOTE | 2019-06-04 14:51 | EEG ---
ELECTROENCEPHALOGRAPHY: DATE OF STUDY: 06/04/19 DATE READ: 06/04/19 ORDERED BY: ANALI García CLINICAL PROBLEM: Mrs. Rao is a 59-year-old female with history of left hemispheric stroke, who presented with a fall. This EEG was obtained to evaluate for epileptiform abnormalities or electrographic seizures. MEDICATIONS: 1. Phenobarbital. 2. Neurontin. 3. Heparin. 4. Rocephin. 5. Plaquenil. 6. Lipitor. 7. Aspirin. 8. Colace. 9. Pepcid. 10. Nebivolol. 11. Tylenol. 12. Labetalol. CLINICAL STATE: Awake and drowsy. REPORT: This EEG showed an interhemispheric asymmetry. Over the left hemisphere, predominantly over the left frontotemporal region, the background lacked organization and/or clearly defined anterior-posterior voltage and frequency gradients. There was no discernible posterior dominant rhythm. Instead, the background consisted of mixed frequency 3-6 Hz slowing in the theta and delta range that persisted throughout the recording. Over the right hemisphere, there was a normal waking background that showed appropriate organization with clearly defined anterior-posterior voltage and frequency gradients. There was a well-defined posterior dominant rhythm of 10 Hz, which was symmetrical and showed normal reactivity. Anteriorly, there was an expected pattern of lower voltage, irregular, and mixed fast frequency. The asymmetry persisted during drowsiness. There were occasional, high amplitude, sharp and slow wave epileptiform discharges in the left frontotemporal region maximal at F7 and T3. There were no electrographic seizures. Hyperventilation and photic stimulation were not performed. Single-electrode EKG showed a normal sinus rhythm with a rate of 70 beats per minute. Throughout the recording, there were no electrographic seizures. CLINICAL IMPRESSION: This is an abnormal awake and drowsy EEG due to interhemispheric asymmetry with poorly organization and diffuse mixed faster frequency, slowing over the left hemisphere, predominantly in the frontotemporal region. The EEG background was normal in the right hemisphere. There were sharp and slow wave epileptiform discharges in the left frontotemporal region. These findings are suggestive of a focal neuronal dysfunction involving the left frontotemporal region consistent with the patient's prior history of stroke. There were areas of increased epileptogenic potentials emanating from the left frontotemporal region. There were no electrographic seizures. [id number]/[facility] #: [id number] [facility]
[2019-06-04 14:58] LABS: BUN/Creatinine Ratio 11.2 (8-20); Calcium 8.5 mg/dL (8.6-10.3); EGFR Non-African American 40.5 (>60); Potassium 3.6 mmol/L (3.5-5.0)
[2019-06-04] MEDS: cefTRIAXone(*) 1 GM in NS 0.9% 50 ML* 50 ML IVPB SCH (15:27)
[2019-06-04 15:51] VITALS: BP 149/70
--- NOTE | 2019-06-04 22:09 | DS ---
Amended report to correct patient account number. AMENDED REPORT NOW INCLUDES DESIGNATED COSIGNER CC: Dr. Nabila Barrera * DISCHARGE SUMMARY/SWING HISTORY AND PHYSICAL: DATE OF ADMISSION: 06/02/19 DATE OF TRANSFER: To swing status on 06/04. PRIMARY CARE PROVIDER: Dr. Nabila Barrera. MY ATTENDING WHILE IN THE HOSPITAL: Dr. Jessica Reyes.* (DICTATED BY ANALI VICTOR) PRIMARY DISCHARGE DIAGNOSES: 1. Recrudescence of former stroke symptoms due to urinary tract infection. 2. Urinary tract infection due to pansensitive Escherichia coli. SECONDARY DISCHARGE DIAGNOSES: 1. History of stroke due to lupus with right-sided deficit. 2. Seizure disorder. 3. Gastroesophageal reflux disease. 4. Chronic kidney disease, stage 3. 5. Anemia. 6. Neuropathic pain. STUDIES DONE WHILE IN THE HOSPITAL: Brain CT from 06/02/19 read as no acute intracranial abnormality, chronic large left frontal and temporal MCA territorial infarct, associated brain atrophy. Chest x-ray from 06/02/19 read as no evidence for active cardiopulmonary disease , moderate-sized hiatal hernia unchanged. Brain MRI read as no acute intracranial abnormality, old left MCA territory infarct. Electroencephalogram read as abnormal awake and drowsy EEG due to interhemispheric asymmetry with poor organization and diffuse mixed faster frequencies, slow over the left hemisphere, predominantly in the frontotemporal region. EEG background was normal in the right hemisphere. There were sharp and slow wave epileptiform discharges in the left frontotemporal region. Findings suggestive of focal neuronal dysfunction involving the left frontotemporal region consistent with the patient's prior history of stroke. There was an area of epileptogenic potentials emanating from the left frontotemporal region. There were no evident electrographic seizures. MEDICATIONS: At the time of transition to swin. Phenobarbital 64.8 mg p.o. b.i.d. 2. Os-Arcenio D 600 mg p.o. b.i.d. 3. Hydroxychloroquine 200 mg p.o. b.i.d. with meals. 4. Nebivolol 5 mg p.o. daily. 5. Tylenol 650 mg p.o. q.6 hours as needed. 6. Amlodipine 10 mg p.o. daily. 7. Docusate 200 mg p.o. daily. 8. Lactobacillus acidophilus 1 to 2 tabs p.o. daily. 9. Famotidine 20 mg p.o. daily. 10. Gabapentin 600 mg p.o. b.i.d. 11. Aspirin 325 mg p.o. daily. 12. Heparin flush for midline. Medications discontinued: Aspirin 81 mg p.o. daily. HOSPITAL COURSE: This is a brief summary of the patient's presentation. For more details, please see the history and physical from Dr. Zachariah Rodriguez on . In brief, the patient is a 59-year-old female with past medical history significant for the above, who presented to the emergency department after sudden onset dizziness and weakness in the previous distribution of her stroke. The patient had been having a couple days of urinary tract symptoms, which she claims she is on antibiotic for, though there is no record of this prescription being filled and she does not remember which antibiotic this was. The patient came into the emergency department with concern for stroke. The patient had persistent weakness worse than her baseline on her right side. In the emergency department, the patient had her aspirin increased. The patient was admitted to the hospital, was found to have a UTI and was started on antibiotics. The patient improved somewhat slowly. The patient had negative brain MRI and EEG read as above, which was expected for her history of seizures. The patient was seen in consultation by Dr. Nba Pressley of Neurology , who recommended no changes, just to treat her UTI and believed that this was related to recrudescence of prior symptoms with UTI and did not recommend changes to her seizure medications or treatment with dual antiplatelet therapy. The patient is already otherwise optimized for secondary prevention of stroke. The patient improved slightly over the course of a couple days, but was still only able to walk approximately 6 feet with this author and that was with extreme difficulty due to weakness in her right leg. The patient is not interested in short-term rehab placement at this time and as such was transitioned to swing status while in the hospital as she is unsafe to go home at this time. PHYSICAL EXAM ON THE DAY OF DISCHARGE: General: The patient is a 59-year-old female, who appears stated age and sitting comfortably in bed, in no acute distress. Vital Signs: At the time of evaluation, temperature 97.6, pulse rate 65, respiratory rate 16, oxygen saturation 100% on room air, blood pressure 149/70. HEENT: Head normocephalic, atraumatic. Sclerae anicteric. No conjunctival injection. Nasal mucosa moist. Oral mucosa moist. No pharyngeal erythema, discharge, or exudate. Neck: Supple, nontender. No lymphadenopathy. No carotid bruits auscultated. No JVD. Cardiac: Regular rate and rhythm. No clicks, murmurs, gallops, or rubs. Pulses are 2+ in the bilateral dorsalis pedis, posterior tibialis, and radial areas. Respiratory: Clear to auscultation bilaterally. No wheezes, rales, or rhonchi. Good air exchange bilaterally. Abdomen: Soft, nontender, nondistended. Bowel sounds present and normoactive in all 4 quadrants. No hepatosplenomegaly. No abdominal bruits auscultated. No hepatojugular reflux. Genitourinary: No suprapubic or CVA tenderness. Skin: Clean, dry, and intact. No rash. Neuro: Dense right-sided weakness, slow unsteady gait assisted by a cane with slow initiation of movement in the right leg, strength 2/5. No nystagmus. No other cranial nerve abnormalities. Expressive aphasia at baseline. Psychiatric: Flat affect. Otherwise, pleasant and cooperative. PLAN: The patient will be transitioned to swing status while she continues physical therapy and occupational therapy with a goal of going home. The patient lives independently in [facility] and has to walk approximately 100 feet per her report to get back to her apartment and this may take several days and the patient is not interested in going to a facility. During this time, the patient's strength is likely going to improve as her E. coli UTI is treated. She will be continued on IV ceftriaxone while in the hospital. The patient will continue to work with PT and OT. The patient had her aspirin increased. This will be continued at this time. The patient has scotoma that was noted per her report in her left eye, which has been going on for several days. This is likely related to retinal pathology and possibly her hydroxychloroquine. The patient per Neurology should have an urgent followup with Ophthalmology for a formal exam, which may be done upon discharge. The patient will have a heart-healthy diet without caffeine and engage in activity as tolerated, working with PT and OT as above. The patient's blood pressure was slightly high, though she is not on her amlodipine. This has been reinstituted and will be continued. TIME SPENT: Approximately 60 minutes was spent on the discharge of this patient, 30 minutes of which was spent face-to- face with the patient obtaining history and physical and discussing treatment plan. ANALI VICTOR [id number]/[facility] #: [id number] [facility]
[2019-06-05] MEDS ORDERED: amLODIPine TAB* 5 MG PO SCH (09:00)
--- NOTE | 2019-06-28 07:37 | PN ---
Hospitalist Progress Note Date of Service: 06/28/19 Addendum to Discharge Summary on 06/04; Condition: Stable
--- NOTE | 2019-07-21 12:01 | DS ---
ADDENDUM TO DISCHARGE SUMMARY DATE OF ADMISSION: 06/02/2019. DATE OF DISCHARGE: 06/04/2019. CONDITION ON DISCHARGE: The patient was stable at the time of transition to swing status. ANALI VICTOR [id number]/[facility] #: [id number] [facility]
== END 2019-06-04 16:54 | disposition swing bed (61) ==
LOC: ED 18:01 → INTOOBSV 22:40 → MEDTELE 22:40
PROVIDERS: ADMIT Internal Medicine; ATTEND Internal Medicine
DX: R42 Dizziness and giddiness (principal); G81.91 Hemiplegia, unspecified affecting right dominant side; I69.398 Other sequelae of cerebral infarction; G40.909 Epilepsy, unspecified, not intractable, without status epilepticus; N18.3 Chronic kidney disease, stage 3 (moderate); G62.9 Polyneuropathy, unspecified; M32.9 Systemic lupus erythematosus, unspecified; Z79.82 Long term (current) use of aspirin; Z79.899 Other long term (current) drug therapy; N39.0 Urinary tract infection, site not specified; I10 Essential (primary) hypertension; D64.9 Anemia, unspecified
CPT/HCPCS: 36415; 70450; 70551; 71045; 80048; 80053; 80061; 81003; 81015; 82607; 82728; 82746; 83540; 83550; 84443; 84484; 85025; 85610; 85730; 87077; 87086; 87186; 87641; 93005; 95816; 96361; 96365; 96366; 96372; 99285; A9270-GY; G0378; G8978-GP-CK; G8979-GP-CI; J0696; J1644

== ENCOUNTER 2019-06-04 16:57 | Inpatient (IN) | payer MEDICARE, MEDICAID ==
[2019-06-04] MEDS ORDERED: Ondansetron INJ* 2 MG/ML VIAL IV PRN (17:14)
[2019-06-04] MEDS ORDERED: cefTRIAXone(*) 1 GM in NS 0.9% 50 ML* 50 ML IVPB SCH (18:00)
[2019-06-04] MEDS: PHENobarbital TAB(*) 30 MG PO SCH (21:43)
[2019-06-04] MEDS: Gabapentin CAP(*) 300 MG PO SCH (21:43)
[2019-06-04] MEDS: Calcium/Vitamin D TAB 250/125* TAB PO SCH (21:44)
[2019-06-04] MEDS: Heparin VIAL(*) 5000 UNITS/ML VIAL (FIVE THOUSAND) SUBCUT SCH (21:44)
[2019-06-05] MEDS: Heparin VIAL(*) 5000 UNITS/ML VIAL (FIVE THOUSAND) SUBCUT SCH ×3 (06:01→21:29)
[2019-06-05] MEDS: Lactobacillus Acidophilus* 1 TAB PO SCH (09:07)
[2019-06-05] MEDS: Famotidine TAB* 20 MG PO SCH (09:07)
[2019-06-05] MEDS: Gabapentin CAP(*) 300 MG PO SCH ×2 (09:07→21:29)
[2019-06-05] MEDS: PHENobarbital TAB(*) 30 MG PO SCH ×2 (09:08→21:29)
[2019-06-05] MEDS: Docusate CAP* 100 MG PO SCH (09:08)
[2019-06-05] MEDS: Aspirin EC TAB* 325 MG PO SCH (09:08)
[2019-06-05] MEDS: Hydroxychloroquine TAB* 200 MG PO SCH ×2 (09:08→18:08)
[2019-06-05] MEDS: Nebivolol TAB (NF) 2.5 MG TAB PO SCH (09:08)
[2019-06-05] MEDS: Atorvastatin* 10 MG TAB PO SCH (09:08)
[2019-06-05] MEDS: amLODIPine TAB* 5 MG PO SCH (09:08)
[2019-06-05] MEDS: Calcium/Vitamin D TAB 250/125* TAB PO SCH ×2 (09:08→21:29)
[2019-06-05] MEDS: Lisinopril TAB* 5 MG PO SCH (11:25)
[2019-06-05] MEDS: cefTRIAXone(*) 1 GM in NS 0.9% 50 ML* 50 ML IVPB SCH (16:24)
[2019-06-06] MEDS: Acetaminophen TAB* 325 MG PO PRN ×2 (00:15→14:21)
[2019-06-06] MEDS: Heparin VIAL(*) 5000 UNITS/ML VIAL (FIVE THOUSAND) SUBCUT SCH ×3 (05:55→21:57)
[2019-06-06 08:10] LABS: BUN/Creatinine Ratio 18.8 (8-20); Calcium 9.3 mg/dL (8.6-10.3); EGFR African American 49.4 (>60); EGFR Non-African American 40.8 (>60); Potassium 3.9 mmol/L (3.5-5.0)
[2019-06-06] MEDS: Lactobacillus Acidophilus* 1 TAB PO SCH (09:14)
[2019-06-06] MEDS: Calcium/Vitamin D TAB 250/125* TAB PO SCH ×2 (09:15→21:56)
[2019-06-06] MEDS: Lisinopril TAB* 5 MG PO SCH (09:15)
[2019-06-06] MEDS: Gabapentin CAP(*) 300 MG PO SCH ×2 (09:15→21:55)
[2019-06-06] MEDS: Aspirin EC TAB* 325 MG PO SCH (09:17)
[2019-06-06] MEDS: Nebivolol TAB (NF) 2.5 MG TAB PO SCH (09:17)
[2019-06-06] MEDS: amLODIPine TAB* 5 MG PO SCH (09:17)
[2019-06-06] MEDS: Atorvastatin* 10 MG TAB PO SCH (09:17)
[2019-06-06] MEDS: Famotidine TAB* 20 MG PO SCH (09:18)
[2019-06-06] MEDS: Hydroxychloroquine TAB* 200 MG PO SCH ×2 (09:18→17:44)
[2019-06-06] MEDS: PHENobarbital TAB(*) 30 MG PO SCH ×2 (09:18→21:56)
[2019-06-06] MEDS: Docusate CAP* 100 MG PO SCH (09:19)
[2019-06-06] MEDS: cefTRIAXone(*) 1 GM in NS 0.9% 50 ML* 50 ML IVPB SCH (17:41)
[2019-06-07] MEDS: Heparin VIAL(*) 5000 UNITS/ML VIAL (FIVE THOUSAND) SUBCUT SCH ×3 (06:26→21:41)
[2019-06-07] MEDS: Aspirin EC TAB* 325 MG PO SCH (08:17)
[2019-06-07] MEDS: Hydroxychloroquine TAB* 200 MG PO SCH ×2 (08:17→17:03)
[2019-06-07] MEDS: Atorvastatin* 10 MG TAB PO SCH (08:17)
[2019-06-07] MEDS: Lactobacillus Acidophilus* 1 TAB PO SCH (08:18)
[2019-06-07] MEDS: Lisinopril TAB* 5 MG PO SCH (08:19)
[2019-06-07] MEDS: amLODIPine TAB* 5 MG PO SCH (08:19)
[2019-06-07] MEDS: PHENobarbital TAB(*) 30 MG PO SCH ×2 (08:19→20:19)
[2019-06-07] MEDS: Calcium/Vitamin D TAB 250/125* TAB PO SCH ×2 (08:20→20:20)
[2019-06-07] MEDS: Gabapentin CAP(*) 300 MG PO SCH ×2 (08:20→20:20)
[2019-06-07] MEDS: Famotidine TAB* 20 MG PO SCH (08:20)
[2019-06-07] MEDS: Docusate CAP* 100 MG PO SCH (08:21)
[2019-06-07] MEDS: Nebivolol TAB (NF) 2.5 MG TAB PO SCH (08:23)
[2019-06-07] MEDS: cefTRIAXone(*) 1 GM in NS 0.9% 50 ML* 50 ML IVPB SCH (16:12)
[2019-06-07] MEDS: Acetaminophen TAB* 325 MG PO PRN (20:22)
[2019-06-08] MEDS: Heparin VIAL(*) 5000 UNITS/ML VIAL (FIVE THOUSAND) SUBCUT SCH ×3 (05:22→21:01)
[2019-06-08] MEDS: Acetaminophen TAB* 325 MG PO PRN (05:27)
[2019-06-08] MEDS: Gabapentin CAP(*) 300 MG PO SCH ×2 (09:12→21:00)
[2019-06-08] MEDS: Hydroxychloroquine TAB* 200 MG PO SCH ×2 (09:13→16:51)
[2019-06-08] MEDS: Nebivolol TAB (NF) 2.5 MG TAB PO SCH (09:13)
[2019-06-08] MEDS: Docusate CAP* 100 MG PO SCH (09:13)
[2019-06-08] MEDS: PHENobarbital TAB(*) 30 MG PO SCH ×2 (09:13→21:01)
[2019-06-08] MEDS: Famotidine TAB* 20 MG PO SCH (09:13)
[2019-06-08] MEDS: Aspirin EC TAB* 325 MG PO SCH (09:13)
[2019-06-08] MEDS: Calcium/Vitamin D TAB 250/125* TAB PO SCH ×2 (09:13→21:01)
[2019-06-08] MEDS: amLODIPine TAB* 5 MG PO SCH (09:13)
[2019-06-08] MEDS: Lisinopril TAB* 5 MG PO SCH (09:14)
[2019-06-08] MEDS: Atorvastatin* 10 MG TAB PO SCH (09:14)
[2019-06-08] MEDS: Lactobacillus Acidophilus* 1 TAB PO SCH (09:14)
[2019-06-08] MEDS: cefTRIAXone(*) 1 GM in NS 0.9% 50 ML* 50 ML IVPB SCH (15:38)
[2019-06-09] MEDS: Heparin VIAL(*) 5000 UNITS/ML VIAL (FIVE THOUSAND) SUBCUT SCH ×3 (05:54→20:56)
[2019-06-09] MEDS: Aspirin EC TAB* 325 MG PO SCH (09:02)
[2019-06-09] MEDS: Calcium/Vitamin D TAB 250/125* TAB PO SCH ×2 (09:02→20:54)
[2019-06-09] MEDS: amLODIPine TAB* 5 MG PO SCH (09:02)
[2019-06-09] MEDS: Atorvastatin* 10 MG TAB PO SCH (09:02)
[2019-06-09] MEDS: PHENobarbital TAB(*) 30 MG PO SCH ×2 (09:02→20:55)
[2019-06-09] MEDS: Famotidine TAB* 20 MG PO SCH (09:02)
[2019-06-09] MEDS: Hydroxychloroquine TAB* 200 MG PO SCH ×2 (09:02→16:39)
[2019-06-09] MEDS: Lisinopril TAB* 5 MG PO SCH (09:03)
[2019-06-09] MEDS: Nebivolol TAB (NF) 2.5 MG TAB PO SCH (09:03)
[2019-06-09] MEDS: Lactobacillus Acidophilus* 1 TAB PO SCH (09:03)
[2019-06-09] MEDS: Gabapentin CAP(*) 300 MG PO SCH ×2 (09:03→20:55)
[2019-06-09] MEDS: Docusate CAP* 100 MG PO SCH (09:05)
[2019-06-09] MEDS: Acetaminophen TAB* 325 MG PO PRN (13:02)
[2019-06-09] MEDS: cefTRIAXone(*) 1 GM in NS 0.9% 50 ML* 50 ML IVPB SCH (16:39)
[2019-06-10] MEDS: Heparin VIAL(*) 5000 UNITS/ML VIAL (FIVE THOUSAND) SUBCUT SCH ×2 (05:53→15:01)
[2019-06-10] MEDS: Nebivolol TAB (NF) 2.5 MG TAB PO SCH (09:35)
[2019-06-10] MEDS: amLODIPine TAB* 5 MG PO SCH (09:35)
[2019-06-10] MEDS: Aspirin EC TAB* 325 MG PO SCH (09:35)
[2019-06-10] MEDS: Hydroxychloroquine TAB* 200 MG PO SCH (09:35)
[2019-06-10] MEDS: Calcium/Vitamin D TAB 250/125* TAB PO SCH (09:36)
[2019-06-10] MEDS: Docusate CAP* 100 MG PO SCH (09:36)
[2019-06-10] MEDS: PHENobarbital TAB(*) 30 MG PO SCH (09:36)
[2019-06-10] MEDS: Gabapentin CAP(*) 300 MG PO SCH (09:36)
[2019-06-10] MEDS: Lisinopril TAB* 5 MG PO SCH (09:37)
[2019-06-10] MEDS: Lactobacillus Acidophilus* 1 TAB PO SCH (09:38)
[2019-06-10] MEDS: Famotidine TAB* 20 MG PO SCH (09:38)
[2019-06-10] MEDS: Atorvastatin* 10 MG TAB PO SCH (09:38)
[2019-06-10] MEDS: Acetaminophen TAB* 325 MG PO PRN (09:52)
[2019-06-10 13:51] VITALS: BP 127/83
--- NOTE | 2019-06-10 21:45 | DS ---
CC: Dr. Barrera * DISCHARGE SUMMARY: DATE OF ADMISSION: 06/02/19 DATE OF TRANSFER TO SWING STATUS: 06/04/19 DATE OF DISCHARGE: 06/10/19 PROVIDER: ANALI Padron ATTENDING PHYSICIAN WHILE IN THE HOSPITAL: Dr. Marko Raygoza * (dictated by ANALI Padron) PRIMARY CARE PROVIDER: Dr. Barrera. PRIMARY DIAGNOSES: 1. Recrudescence of former stroke symptoms due to urinary tract infection. 2. Urinary tract infection, pansensitive to Escherichia coli. SECONDARY DISCHARGE DIAGNOSES: 1. History of stroke with right-sided deficit. 2. Lupus. 3. Seizure disorder. 4. Gastroesophageal reflux disease. 5. Chronic kidney disease, stage 3. 6. Anemia. 7. Neuropathic pain. HISTORY OF PRESENT ILLNESS/HOSPITAL COURSE: Please see the discharge summary dictated by ANALI García on 06/04/19 when the patient was switched from inpatient status to swing status for further details regarding the hospital course. Since transfer to swing status, the patient apparently at one point was agreeable to rehab and there was a brief time when subacute rehab placement was pending. The patient continued receiving physical therapy during her stay and feeling she participated well. Her IV ceftriaxone was continued and she received a full course to treat her UTI. Because she was hypertensive during her swing status, I did decide to add 5 mg of lisinopril and the patient had good response. Otherwise, all her other home medications were continued. On the day of discharge, the patient was again refusing rehab and because she performed well on physical therapy, she elected to be discharged home and was deemed safe to do so. PHYSICAL EXAM: General: Thin black female, lying comfortably in the hospital bed, in no acute distress. Head: Normocephalic, atraumatic. Eyes: PERRL. Sclerae anicteric. ENT: Mucous membranes are moist. Cardio: Regular rate and rhythm without murmurs, rubs, or gallops. Lungs: Clear to auscultation throughout. Abdomen: Soft, nontender, nondistended. No suprapubic tenderness. Extremities: No clubbing, cyanosis, or edema. Neuro: No neurobiologist strength or plantar flexion or dorsiflexion on right side. Sensation diminished to light touch in the right lower extremity and right upper extremity. Skin: Warm, dry and intact. DISCHARGE PLAN: DIET: Regular diet. ACTIVITY: The patient may return to her normal activity as tolerated. The patient was advised to return to emergency department if she is experiencing hematuria, dysuria, fever, chills, or abdominal pain or low back pain. The patient was advised to have followup with Ophthalmology due to her changes in her vision she experienced on her hospital stay. She is advised to follow up with her primary care provider within 7 to 10 days regarding this hospitalization. DISCHARGE MEDICATIONS: New medications: 1. Aspirin 325 mg p.o. daily. 2. Lisinopril 5 mg p.o. daily. Continued home medications: 1. Crestor 5 mg p.o. daily. 2. Phenobarbital 64.8 mg p.o. b.i.d. 3. Nebivolol 5 mg p.o. daily. 4. Floranex tablet 1 tab p.o. daily. 5. Plaquenil 200 mg p.o. b.i.d. 6. Gabapentin 600 mg p.o. b.i.d. 7. Famotidine 20 mg p.o. daily. 8. Docusate 200 mg p.o. daily. 9. Calcium with vitamin D tab 1 tab p.o. daily. 10. Amlodipine 10 mg p.o. daily. CONDITION ON DISCHARGE: Stable. DISPOSITION: Home. TIME SPENT: Approximately 40 minutes was spent on this discharge, half of which was spent reviewing the patient's hospital course and preparing discharge instructions. ANALI PADRON [id number]/[facility] #: [id number] [facility]
== END 2019-06-10 15:00 | disposition home health service (06) | DRG 57 ==
LOC: MEDTELE 16:57 → MED 06-07 18:49
PROVIDERS: ADMIT Hospitalist; ATTEND Internal Medicine
DX: I69.351 Hemiplegia and hemiparesis following cerebral infarction affecting right dominant side (principal); N39.0 Urinary tract infection, site not specified; B96.20 Unspecified Escherichia coli [E. coli] as the cause of diseases classified elsewhere; M32.9 Systemic lupus erythematosus, unspecified; G40.909 Epilepsy, unspecified, not intractable, without status epilepticus; K21.9 Gastro-esophageal reflux disease without esophagitis; N18.3 Chronic kidney disease, stage 3 (moderate); D64.9 Anemia, unspecified; M79.2 Neuralgia and neuritis, unspecified; K44.9 Diaphragmatic hernia without obstruction or gangrene; Z75.1 Person awaiting admission to adequate facility elsewhere; Z79.1 Long term (current) use of non-steroidal anti-inflammatories (NSAID); Z79.82 Long term (current) use of aspirin; Z79.899 Other long term (current) drug therapy
CPT/HCPCS: 36415; 80048; A9270-GY; G8978-GP-CI; G8978-GP-CL; G8979-GP-CI; G8987-GO-CL; G8988-GO-CJ; J0696; J1644

== ENCOUNTER 2019-07-19 12:19 | Day surgery (SDC) | payer MEDICARE, MEDICAID ==
[~2019-07-19 12:19] MED LIST: Acetaminophen TAB* 325 MG PO PRN; Cyclopentolate 1% OPTH.SOL* 2 ML BTL ONE; Ketorolac 0.5% OPHTH (NF) 0.5 % 5 ML BTL ONE; Lidocaine 1% MPF ** 5 ML VIAL ONE; Neomycin/Polymy/Dex OPHTH.OIN* 3.5 GM ONE; Phenylephrine OPHTH SOL 2.5%* 2 ML ONE; Povidone Iodine 5% OPTH* 30 ML BTL ONE; Tetracaine 0.5% OPTH.SOL 4 ML* 1 DROP BTL ONE; Tropicamide 1% OPTH.SOL* BTL ONE
[2019-07-19] MEDS ORDERED: Midazolam* 1 MG/ML 2 ML VIAL (2 MG) ONE (14:10)
[2019-07-19] MEDS ORDERED: Buffered Lidocaine 1% SYRIN* 1 ML/SYRINGE INTRADERM ONE (14:30)
[2019-07-19 16:16] VITALS: BP 127/92
--- NOTE | 2019-07-19 16:36 | OP ---
DATE OF OPERATION: 07/19/2019 - [facility] DATE OF : 1960. SURGEON: Kirill Wright MD ANESTHESIA: Monitored anesthesia care. PREOPERATIVE DIAGNOSIS: Cataract, right eye. POSTOPERATIVE DIAGNOSIS: Cataract, right eye. OPERATIVE PROCEDURE: Extracapsular cataract extraction of the right eye with intraocular lens implant. IMPLANT: SN60WF 15.0 diopter lens to the right eye. COMPLICATIONS: None. DESCRIPTION OF PROCEDURE: The patient was given phenylephrine 2.5 % and cyclopentolate 1% eye drops to the operative eye in the preoperative area. The patient was taken to the operating room where a time-out was taken to identify the correct patient, site, and side of surgery. The patient's right eye was prepped and draped in the usual sterile fashion with 5% Betadine. A second time- out was taken to verify the correct patient, side, and site of surgery, as well as the correct lens implant. A lid speculum was placed to the right eye. A 1mm paracentesis blade was used to make a clear corneal incision. Preservative-free 1% lidocaine was injected into the anterior chamber. DisCoVisc was then injected into the anterior chamber. A 2.75 mm keratome blade was used to make a triplanar incision. A cystotome initiated a capsulorrhexis, which was completed with Utrata forceps in a continuous and curvilinear manner. Hydrodissection of the lens was performed with BSS on a cannula. The lens could be spun in a capsular bag. The phacoemulsification handpiece was used with a divide-and- conquer technique to remove the nucleus. The I/A handpiece then removed the residual cortical lens material. DisCoVisc was injected to inflate the capsular bag. The planned SN60WF 15.0 diopter lens was injected into the capsular bag. The residual DisCoVisc was removed from the eye with the I/A handpiece. The corneal incisions were hydrated and no leaks occurred at physiologic pressure around 20 mmHg per palpation. The lid speculum was removed and drapes were removed. Maxitrol ointment was placed to the surface of the operative eye. An adhesive patch and shield was then placed on the operative eye. The patient was taken to the post-operative area in stable condition. [id number]/[facility] #: [id number] [facility]
== END 2019-07-19 16:55 | disposition home or self-care (01) ==
LOC: OREAST 12:19
PROVIDERS: ATTEND Student in an Organized Health Care Education/Training Program
DX: H25.11 Age-related nuclear cataract, right eye (principal); M32.9 Systemic lupus erythematosus, unspecified; H35.3131 Nonexudative age-related macular degeneration, bilateral, early dry stage; Z79.899 Other long term (current) drug therapy; M19.90 Unspecified osteoarthritis, unspecified site; I10 Essential (primary) hypertension; D72.819 Decreased white blood cell count, unspecified
CPT/HCPCS: A9270-GY; J2250; V2632

== ENCOUNTER 2019-07-26 13:09 | Day surgery (SDC) | payer MEDICARE, MEDICAID, OTHER ==
[~2019-07-26 13:09] MED LIST changes: -Acetaminophen TAB* 325 MG PO PRN; +Buffered Lidocaine 1% SYRIN* 1 ML/SYRINGE INTRADERM ONE; +acetaZOLAMIDE TAB* 250 MG ONE
[2019-07-26] MEDS ORDERED: Midazolam* 1 MG/ML 2 ML VIAL (2 MG) ONE (15:04)
[2019-07-26 16:16] VITALS: BP 114/72
--- NOTE | 2019-07-26 23:20 | OP ---
DATE OF OPERATION: 07/26/19 - [facility] DATE OF : [birth year] SURGEON: Kirill Wright MD ANESTHESIA: Monitored anesthesia care. PREOPERATIVE DIAGNOSIS: Cataract, left eye. POSTOPERATIVE DIAGNOSIS: Cataract, left eye. OPERATIVE PROCEDURE: Extracapsular cataract extraction of the left eye with intraocular lens implant. IMPLANT: SN60WF 15.5 diopter lens to the left eye. COMPLICATIONS: None. DESCRIPTION OF PROCEDURE: The patient was given phenylephrine 2.5 % and cyclopentolate 1% eye drops to the operative eye in the preoperative area. The patient was taken to the operating room where a time-out was taken to identify the correct patient, site, and side of surgery. The patient's left eye was prepped and draped in the usual sterile fashion with 5% Betadine. A second time- out was taken to verify the correct patient, side, and site of surgery, as well as the correct lens implant. A lid speculum was placed to the left eye. A 1 mm paracentesis blade was used to make a clear corneal incision. Preservative-free 1% lidocaine was injected into the anterior chamber. DisCoVisc was then injected into the anterior chamber. A 2.75 mm keratome blade was used to make a triplanar incision. A cystotome initiated a capsulorrhexis, which was completed with Utrata forceps in a continuous and curvilinear manner. Hydrodissection of the lens was performed with BSS on a cannula. The lens could be spun in a capsular bag. The phacoemulsification handpiece was used with a divide-and- conquer technique to remove the nucleus. The I/A handpiece then removed the residual cortical lens material. DisCoVisc was injected to inflate the capsular bag. The planned SN60WF 15.5 diopter lens was injected into the capsular bag. The residual DisCoVisc was removed from the eye with the I/A handpiece. The corneal incisions were hydrated and no leaks occurred at physiologic pressure around 20 mmHg per palpation. The lid speculum was removed and drapes were removed. Maxitrol ointment was placed to the surface of the operative eye. An adhesive patch and shield was then placed on the operative eye. The patient was taken to the postoperative area in stable condition. [id number]/[facility] #: [id number] [facility]
== END 2019-07-26 16:38 | disposition home or self-care (01) ==
LOC: OREAST 13:09
PROVIDERS: ATTEND Student in an Organized Health Care Education/Training Program
DX: Z01.818 Encounter for other preprocedural examination (principal); H25.12 Age-related nuclear cataract, left eye; H35.3131 Nonexudative age-related macular degeneration, bilateral, early dry stage; H25.23 Age-related cataract, morgagnian type, bilateral; M32.9 Systemic lupus erythematosus, unspecified; I12.9 Hypertensive chronic kidney disease with stage 1 through stage 4 chronic kidney disease, or unspecified chronic kidney disease; N18.3 Chronic kidney disease, stage 3 (moderate); D63.1 Anemia in chronic kidney disease; G40.909 Epilepsy, unspecified, not intractable, without status epilepticus; M85.80 Other specified disorders of bone density and structure, unspecified site; I69.351 Hemiplegia and hemiparesis following cerebral infarction affecting right dominant side; H61.22 Impacted cerumen, left ear; R94.39 Abnormal result of other cardiovascular function study; Z79.899 Other long term (current) drug therapy; Z96.1 Presence of intraocular lens; Z23 Encounter for immunization
CPT/HCPCS: A9270-GY; J2250; V2632

== ENCOUNTER 2019-08-19 15:04 | Emergency (ER) | payer MEDICARE, MEDICAID ==
--- NOTE | 2019-08-19 15:08 | ED ---
Complex/Multi-Sys Presentation - HPI Summary HPI Summary: This pt is a 59 y/o female presenting to [facility] via EMS for general weakness for the past 2 days. Pt reports weakness is everywhere in her body. Additionally she states has been having urinary frequency. Denies dysuria, hematuria, fever. Pt reports she has right sided pain that is intermittent and constipation. Her last bowel movement was yesterday, denies bloody stools. She states she had vaginal bleeding yesterday that is not normal for her. Pt no longer has menstrual periods and does not know when was her last pap smear. Denies any vaginal bleeding today. Denies fever, nausea, vomiting, diarrhea. Pt reports headache yesterday but denies any today. Per nurse's note, pt has a rash behind bilateral ears that is pruritic. PMHx of bladder infections (last one was 2 months ago), HTN, lupus, CVA ( residual weakness on right side). Pt has allergies to multiple medications. Denies tobacco, drug, and alcohol use. Pt lives by herself at home. Medications reviewed. Allergies noted. - History Of Current Complaint Hx Obtained From: Patient Onset/Duration: Lasting Days, Still Present Timing: Days Severity Currently: Moderate Aggravating Factor(s): nothing Alleviating Factor(s): nothing Associated Signs And Symptoms: Positive: Weakness - generalized, Other - POSITIVE: urinary frequency, constipation, vaginal bleeding. NEGATIVE: hematuria.. Negative: Headache - yesterday, none today, Nausea, Vomiting, Diarrhea, Dysuria, Fever - Allergies/Home Medications Allergies/Adverse Reactions: Allergies Allergy/AdvReac Type Severity Reaction Status Date / Time fentanyl Allergy rash, Verified 07/26/19 14:27 hives, itchy Sulfa (Sulfonamide Allergy Facial Verified 07/26/19 14:27 Antibiotics) Redness/Flushing baclofen AdvReac Intermediate Altered Verified 07/26/19 14:27 Mental Status nitrofurantoin AdvReac Intermediate Leukopenia/ Verified 07/26/19 14:27 neutropenia Home Medications: Home Medications Calcium Carbonate/Vitamin D3 [Calcium 600-Vit D3 800 Caplet] 1 tab.chew PO BID 08/19/19 [History Confirmed 08/19/19] Gabapentin TAB(NF) [Neurontin 600 mg TAB(NF)] 600 mg PO BID 08/19/19 [History Confirmed 08/19/19] Lisinopril TAB* [Prinivil TAB*] 2.5 mg PO DAILY 08/19/19 [History Confirmed ] Nebivolol TAB (NF) [Bystolic TAB (NF)] 5 mg PO DAILY 08/19/19 [History Confirmed 08/19/19] Rosuvastatin (NF) [Crestor (NF)] 5 mg PO MOWEFR 08/19/19 [History Confirmed ] amLODIPine TAB* [Norvasc 5 mg TAB*] 10 mg PO DAILY 08/19/19 [History Confirmed 08/19/19] oxyCODONE/Acetamin 5/325 MG* [Percocet 5/325 TAB*] 1 tab PO Q6H PRN 08/19/19 [ History Confirmed 08/19/19] PMH/Surg Hx/FS Hx/Imm Hx Endocrine/Hematology History: Reports: Hx Anticoagulant Therapy, Hx Systemic Lupus Erythematosus, Hx Thyroid Disease - THYROIDECTOMY, Hx Anemia - HISTORY Denies: Hx Bone Marrow Disease, Hx Diabetes, Hx Sickle Cell Disease Cardiovascular History: Reports: Hx Angina, Hx Deep Vein Thrombosis, Hx Hypertension, Hx Syncope, Other Cardiovascular Problems/Disorders - STROKE Denies: Hx Congestive Heart Failure, Hx Myocardial Infarction, Hx Pacemaker/ ICD, Hx Rheumatic Fever, Hx Valvular Heart Disease Comment Only: Hx Hypercholesterolemia - unkown Respiratory History: Reports: Hx Pulmonary Embolism Denies: Hx Asthma, Hx Sleep Apnea, Other Respiratory Problems/Disorders GI History: Reports: Hx Gastroesophageal Reflux Disease, Hx Hiatal Hernia, Hx Irritable Bowel Denies: Hx Jaundice History: Reports: Hx Chronic Renal Failure - stage 2, Hx Kidney Infection, Other Problems/Disorders - UTI, vag abscess. SEES DR. 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 Hx Denies: Hx Glaucoma, Hx Hearing Aid Opthamlomology History: Reports: Hx Cataracts, Hx Contacts or Glasses - GLASSES SOMETIMES, Other Sensory Impairments - 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 HYSTERECTOMY;. OOPHERECTOMY;. VAGINAL ABSCESS I&D. BREAST SURGERY Hx Anesthesia Reactions: No - Immunization History Date of Tetanus Vaccine: unk Date of Influenza Vaccine: unk Infectious Disease History: Reports: Hx of Known/Suspected MRSA - patient does not remember, Hx Shingles Denies: Hx Clostridium Difficile, Hx Hepatitis, Hx Tuberculosis, Hx Known/ Suspected VRE, Hx Known/Suspected VRSA - Family History Known Family History: Positive: Cardiac Disease, Hypertension, Diabetes - Social History Alcohol Use: None Hx Substance Use: No Substance Use Type: Reports: None Hx Tobacco Use: No Smoking Status (MU): Former Smoker Amount Used/How Often: only smoked for weeks Have You Smoked in the Last Year: No Review of Systems Negative: Fever Gastrointestinal: Other - POSITIVE: constipation Negative: Vomiting, Diarrhea, Nausea Genitourinary: Other - POSITIVE: vaginal bleeding Positive: frequency. Negative: dysuria, hematuria Positive: Rash Positive: Weakness - generalized. Negative: Headache - none today All Other Systems Reviewed And Are Negative: Yes Physical Exam - Summary Physical Exam Summary: Constitutional: Well-developed, Well-nourished, Alert. (-) Distressed Skin: Warm, Dry HENT: Normocephalic; Atraumatic Eyes: Conjunctiva normal Neck: Musculoskeletal ROM normal neck. (-) JVD, (-) Stridor, (-) Tracheal deviation Cardio: Rhythm regular, rate normal, Heart sounds normal; Intact distal pulses; The pedal pulses are 2+ and symmetric. Radial pulses are 2+ and symmetric. (-) Murmur Pulmonary/Chest wall: Effort normal. (-) Respiratory distress, (-) Wheezes, (-) Rales Abd: Soft, suprapubic tenderness, mild LLQ tenderness, (-) Distension, (-) Guarding, (-) Rebound Musculoskeletal: (-) Edema Lymph: (-) Cervical adenopathy Neuro: Alert, Oriented x3 Psych: Mood and affect Normal Triage Information Reviewed: Yes Vital Signs On Initial Exam: Initial Vitals Temp Pulse Resp BP Pulse Ox 99.4 F 108 18 137/88 98 08/19/19 15:06 08/19/19 15:06 08/19/19 15:06 08/19/19 15:06 08/19/19 15:06 Vital Signs Reviewed: Yes Procedures - Sedation Patient Received Moderate/Deep Sedation with Procedure: No Diagnostics - Laboratory Result Diagrams: 08/19/19 16:45 08/19/19 16:45 Lab Statement: Any lab studies that have been ordered have been reviewed, and results considered in the medical decision making process. Complex Multi-Symp Course/Dx Course Of Treatment: Patient is here with generalized weakness and UTI symptoms. Patient had a UA which showed UTI. Patient has a prior culture from May which showed Escherichia coli sensitive to Augmentin so she was started on that. Patient had one performed which showed anemia at her baseline and no other abnormality's. Patient did not have pyelonephritis per critical history and examination. Patient was discharged with antibiotics. - Diagnoses Provider Diagnoses: UTI (urinary tract infection) Discharge ED - Sign-Out/Discharge Documenting (check all that apply): Patient Departure - Discharge home - Discharge Plan Condition: Stable Disposition: HOME Prescriptions: Amoxicillin/Clavulanate TAB* [Augmentin TAB 875*] 875 mg PO BID 7 Days #14 tab Patient Education Materials: Urinary Tract Infection in Women (ED) Referrals: Nabila Barrera MD [Primary Care Provider] - Additional Instructions: Take antibiotics as prescribed. PLEASE RETURN TO EMERGENCY DEPARTMENT FOR FEVERS, WORSENING PAIN, REPEATED VOMITING, OR ANY OTHER CONCERNING SYMPTOMS. Please follow up with your primary care physician in 1-3 days. - Billing Disposition and Condition Condition: STABLE Disposition: Home - Attestation Statements Document Initiated by Ophelia: Yes Documenting Ophelia: Shefali Barton Provider For Whom Ophelia is Documenting (Include Credential): Magen Christensen MD Scribe Attestation: Shefali Emerson, scribed for Magen Christensen MD on 08/19/19 at 1937. Scribe Documentation Reviewed: Yes Provider Attestation: The documentation as recorded by the Shefali agustin accurately reflects the service I personally performed and the decisions made by me, Magen Christensen MD Status of Scribe Document: Viewed
--- OUTSIDE RECORDS SUMMARY | 2019-08-19 15:28 | XMS REPORT | Continuity of Care Document ---
:1960 External Reference #:[id number] Author Name Kirill Wright M.D. Address [address] [place] [address] Care Team Providers Name Role Phone Nabila Barrera M.D. - Internal Care Team Information Sql Tech [phone] Medicine Problems Active Problems Provider Date Hypertension Onset: Arthritis Onset: H/O: stroke Onset: Note: CVA 1987 Lupus erythematosus Onset: Seizure Onset: Avascular necrosis of bone of hip Onset: Leukopenia Onset: Keratoconjunctivitis sicca Onset: Prosthetic arthroplasty of the hip Onset: Osteopenia Onset: Hiatal hernia Onset: Hidradenitis Onset: Cerebrovascular disease Onset: Cerebral artery occlusion Onset: Flaccid hemiplegia of dominant side Onset: Taking medication Kirill Wright M.D. Onset: 12/25/2017 Nuclear senile cataract Kirill Wright M.D. Onset: 12/25/2017 Systemic lupus erythematosus Kirill Wright M.D. Onset: 07/07/2019 Bilateral age-related nonexudative macular Kirill Wright M.D. Onset: 08/2019 degeneration Social History Type Date Description Comments Sex Unknown ETOH Use Denies alcohol use Recreational Drug Use Denies Drug Use Tobacco Use Start: Unknown Patient has never smoked Smoking Status Reviewed: 07/07/19 Patient has never smoked Allergies, Adverse Reactions, Alerts Active Allergies Reaction Severity Comments Date Sulfa Antibiotics 12/25/2017 Nitrofurantoin 12/25/2017 Baclofen 12/25/2017 Inactive Allergies NKDA 12/25/2017 Medications Active Medications SIG Qnty Indications Ordering Date Provider Ciprofloxacin HCL instill one 5ml Kirill 07/07/2019 0.3% Solution drop in the Tirso Wright right eye three times a day, start the day before surgery Ketorolac Tromethamine use one drop in 10ml Kirill 07/07/2019 0.5% the right eye Tirso Wright Solution three times a day, start the day before surgery Prednisolone Acetate 1 drops right 10ml Kirill 07/07/2019 1% eye three times Tirso Wright Suspension a day. taper as directed Hydroxychloroquine Sulfate Bartolo, Zsofia 200mg AIRCRAFT [employer]CH[employer] ARMAMENT Tablets Gabapentin Barrera, Nabila 600mg Tablets M.D. Bystolic Barrera, Nabila 5mg Tablets M.D. Calcium 600 Unknown 600mg Tablets Famotidine Take 1 Tablet Unknown 20mg Tablets By Mouth AT Bedtime Lisinopril Take 1 Tablet Unknown 5mg Tablets By Mouth Every Day Phenobarbital Cotton, 64.8mg Tablets Nereida Chahal Immunizations Description No Information Available Vital Signs Description No Information Available Results Description No Information Available Procedures Date Code Description Status 06/16/2019 47154 Scanning Computerized Opthalmic Diagnostic Posterior Seg Completed Retina 06/16/2019 77162 Visual Field Exam Extended Completed 06/16/2019 51723 Est Patient Comprehensive Exam Completed Medical Devices Description No Information Available Encounters Description No Information Available Assessments Date Code Description Provider 07/07/2019 H25.11 Age-related nuclear cataract, right eye Kirill Wright M.D. 07/07/2019 Z79.899 Other retirement (current) drug therapy Kirill Wright M.D. 07/07/2019 M32.9 Systemic lupus erythematosus, unspecified Kirill Wright M.D. 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 06/16/2019 Z79.899 Other structural welder (current) drug therapy Kirill Wright M.D. 06/16/2019 M32.9 Systemic lupus erythematosus, unspecified Kirill Wright M.D. 06/16/2019 H25.13 Age-related nuclear cataract, bilateral Kirill Wright M.D. 06/16/2019 H43.812 Vitreous degeneration, left eye Kirill Wright M.D. 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 at [facility] 9:00 am - Kirill Wright M.D. at [facility]/26/2019 9:30 am - Kirill Wright M.D. at [facility], 2018 11:15 am - Kirill Wright M.D. at [facility]/19/2019 10: 00 am - Kirill Wright M.D. at [facility], 07/07/2019 - Kirill Wright M.D.H25.11 Age-related nuclear cataract, right eyeComments:Smoking can increase the risk of developing or worsening any eye related disease, as well as affect your overall health. If you are a smoker, we strongly recommend that you quit.If you are not a smoker, we strongly recommend that you do not start. Dense cataract in the right eye.Follow up:For surgery. Please keep post op appointments as scheduled.Z79.899 Other retirement (current) drug [id number] Systemic lupus erythematosus, [id number] Nonexudative age- related macular degeneration, bilateral, early dry [id number] Age-related nuclear cataract, left eye Functional Status Description No Information Available Mental Status Description No Information Available Referrals Description No Information Available
--- OUTSIDE RECORDS SUMMARY | 2019-08-19 15:28 | XMS REPORT | Continuity of Care Document ---
:1960 External Reference #:[id number] Author Name Kirill Wright M.D. Address [address] [place] [address] Care Team Providers Name Role Phone Nabila Barrera M.D. 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 [...] Information Available Procedures Date Code Description Status 07/19/2019 44663 Extracapsular Cataract Extraction W/Intraocular Lens Completed 07/07/2019 16476 Ophthalmic Biometry Completed 07/07/2019 01723 Ophthalmic Biometry Completed 07/07/2019 79038 Est Patient Intermediate Exam Completed 06/16/2019 34237 Scanning Computerized Opthalmic Diagnostic Posterior Seg Completed Retina 06/16/2019 26757 Visual Field Exam Extended Completed 06/16/2019 20819 Est Patient Comprehensive Exam Completed Medical Devices Description No Information Available Encounters Description No Information Available Assessments Date Code Description Provider 07/27/2019 Z96.1 Presence of intraocular lens Kirill Wright M.D. 07/20/2019 H25.12 Age-related nuclear cataract, left eye Kirill Wright M.D. 07/20/2019 Z79.899 Other nursing home (current) drug therapy Kirill Wright M.D. 07/20/2019 M32.9 Systemic lupus erythematosus, unspecified Kirill Wright M.D. 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 07/19/2019 H25.11 Age-related nuclear cataract, right eye Kirill Wright M.D. 07/07/2019 H25.11 Age-related nuclear cataract, right eye Kirill Wright M.D. 07/07/2019 Z79.899 Other nursing home (current) drug therapy Kirill Wright M.D. 07/07/2019 M32.9 Systemic lupus erythematosus, unspecified Kirill Wright M.D. 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 06/16/2019 M32.9 Systemic lupus erythematosus, unspecified Kirill Wright M.D. 06/16/2019 H25.13 Age-related nuclear cataract, bilateral Kirill Wright M.D. 06/16/2019 H43.812 Vitreous degeneration, left eye Kirill Wright M.D. 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 at [facility] - Kirill Wright M.D.Z96.1 Presence of intraocular lensComments:Smoking can increase the risk of developing or worsening any eye related disease, as well as affect your overall health. If you are a smoker, we strongly recommend that you quit.If you are not a smoker, we strongly recommend that you do not start. The artifical lens implant in your left eye appears to be stable. Since this is the first day after surgery, your left eye is still dilated and the vision will still be slightly blurry. The dilation will go down over the next day or two. Continue taking your eye drops as directed on the surgical calendar. If you have any questions, please call our office.Follow up:As scheduled You can expect to have your eyes dilated at your next visit. If Dr. Wright orders any additional testing, it may require extra time. We recommend that you bring sunglasses, as dilation drops often make you light sensitive until they wear off. We always recommend you bring someone to drive you home if you are uncomfortable driving with your eyes dilated. If you have any questions before your next visit, feel free to call our office at [phone]. Functional Status Description No Information Available Mental Status Description No Information Available Referrals Description No Information Available
--- OUTSIDE RECORDS SUMMARY | 2019-08-19 15:28 | XMS REPORT | Continuity of Care Document ---
:1960 External Reference #:[id number] Author Name Kirill Wright M.D. Address [address] [place] [address] Care Team Providers Name Role Phone Nabila Barrera M.D. 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 Bystolic Barrera, Nabila 5mg Tablets M.D. Calcium 600 Unknown 600mg Tablets Famotidine Take 1 Tablet Unknown 20mg Tablets By Mouth AT Bedtime Lisinopril Take 1 Tablet Unknown 5mg Tablets By Mouth Every Day Phenobarbital Cotton, 64.8mg Tablets Nereida Tirso History Medications Ciprofloxacin HCL instill one drop 5ml Kirill Wright, 07/07/2019 - 0.3% in the right eye M.D. 08/08/2019 Solution three times a day, start the day before surgery Ketorolac Tromethamine use one drop in 10ml Kirill Wright, 07/07/2019 - 0.5% the right eye M.D. 08/08/2019 Solution three times a day, start the day before surgery Prednisolone Acetate 1 drops right eye 10ml Kirill Wright, 07/07/2019 - 1% three times a day. M.D. 08/08/2019 Suspension taper as directed Immunizations Description No Information Available Vital Signs Description No Information Available Results Description No Information Available Procedures Date Code Description Status 07/26/2019 31320 Extracapsular Cataract Extraction W/Intraocular Lens Completed 07/19/2019 74744 Extracapsular Cataract Extraction W/Intraocular Lens Completed 07/07/2019 91862 Ophthalmic Biometry Completed 07/07/2019 68127 Ophthalmic Biometry Completed 07/07/2019 63815 Est Patient Intermediate Exam Completed 06/16/2019 06469 Scanning Computerized Opthalmic Diagnostic Posterior Seg Completed Retina 06/16/2019 36774 Visual Field Exam Extended Completed 06/16/2019 67896 Est Patient Comprehensive Exam Completed Medical Devices Description No Information Available Encounters Description No Information Available Assessments Date Code Description Provider 08/10/2019 Z96.1 Presence of intraocular lens Kirill Wright M.D. 07/27/2019 Z96.1 Presence of intraocular lens Kirill Wright M.D. 07/26/2019 H25.12 Age-related nuclear cataract, left eye Kirill Wright M.D. 07/20/2019 H25.12 Age-related nuclear cataract, left eye Kirill Wright M.D. 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 07/20/2019 M32.9 Systemic lupus erythematosus, unspecified Kirill Wright M.D. 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 07/19/2019 H25.11 Age-related nuclear cataract, right eye Kirill Wright M.D. 07/07/2019 H25.11 Age-related nuclear cataract, right eye Kirill Wright M.D. 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 07/07/2019 M32.9 Systemic lupus erythematosus, unspecified Kirill Wright M.D. 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 06/16/2019 Z79.899 Other jail (current) drug therapy Kirill Wright M.D. 06/16/2019 M32.9 Systemic lupus erythematosus, unspecified Kirill Wright M.D. 06/16/2019 H25.13 Age-related nuclear cataract, bilateral Kirill Wright M.D. 06/16/2019 H43.812 Vitreous degeneration, left eye Kirill Wright M.D. 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 If you are a smoker, we strongly recommend that you quit.If you are not a smoker, we strongly recommend that you do not start. Your lens implant looks stable in both eyes at this time. You should be done, or almost done with your drops at this time according to your surgical calendar. I have given you a prescription for glasses. If you have any questions, please feel free to call our office at . USE THE PREDNISOLONE EYE DROP: 1 DROP 3 TIMES A DAY TO THE RIGHTEYE FOR 1 WEEK.THEN DECREASE TO 1 DROP 2 TIMES A DAY TO THE RIGHT EYE FOR 1 WEEK.THEN DECREASE TO ONCE A DAY TO THE RIGHT EYE FOR 1 WEEK. YOU CAN TRY +2.00 OR +2.50 OVER THE COUNTER READING GLASSES FORYOUR NEAR VISION.Follow up:3 Week Follow Up CORNEA CHECK, REFRACTION At your next visit, we are not planning to dilate your eyes. However, if you have any changes in your vision or new symptoms, there are certain situations that require us to dilate your eyes. If Dr. Wright requests any additional testing, that may require extra time. If you have any questions before your next appointment, please call our office at . Functional Status Description No Information Available Mental Status Description No Information Available Referrals Description No Information Available
--- OUTSIDE RECORDS SUMMARY | 2019-08-19 15:28 | XMS REPORT | Continuity of Care Document ---
:1960 External Reference #:[id number] Author Name Kirill Wright M.D. Address [address] [place] [address] Care Team Providers Name Role Phone Nabila Barrera M.D. 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 [...] Available Procedures Date Code Description Status 07/19/2019 12888 Extracapsular Cataract Extraction W/Intraocular Lens Completed 07/07/2019 12264 Ophthalmic Biometry Completed 07/07/2019 27989 Ophthalmic Biometry Completed 07/07/2019 79141 Est Patient Intermediate Exam Completed 06/16/2019 02491 Scanning Computerized Opthalmic Diagnostic Posterior Seg Completed Retina 06/16/2019 62247 Visual Field Exam Extended Completed 06/16/2019 43222 Est Patient Comprehensive Exam Completed Medical Devices Description No Information Available Encounters Description No Information Available Assessments Date Code Description Provider 07/20/2019 H25.12 Age-related nuclear cataract, left eye Kirill Wright M.D. 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 07/20/2019 M32.9 Systemic lupus erythematosus, unspecified Kirill Wright M.D. 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 07/19/2019 H25.11 Age-related nuclear cataract, right eye Kirill Wright M.D. 07/07/2019 H25.11 Age-related nuclear cataract, right eye Kirill Wright M.D. 07/07/2019 Z79.899 Other halfway (current) drug therapy Kirill Wright M.D. 07/07/2019 M32.9 Systemic lupus erythematosus, unspecified Kirill Wright M.D. 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 06/16/2019 Z79.899 Other halfway (current) drug therapy Kirill Wright M.D. 06/16/2019 M32.9 Systemic lupus erythematosus, unspecified Kirill Wright M.D. 06/16/2019 H25.13 Age-related nuclear cataract, bilateral Kirill Wright M.D. 06/16/2019 H43.812 Vitreous degeneration, left eye Kirill Wright M.D. 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 at [facility] 9:00 am - Kirill [facility] M.D[facility]/26/2019 9:30 am - Kirill [facility] M.D. at [facility] - Kirill Wright M.D.H25.12 Age-related nuclear cataract, left eyeComments:Smoking can increase the risk of developing or worsening any eye related disease, as well as affect your overall health. If you are a smoker, we strongly recommend that you quit.If you are not a smoker, we strongly recommend that you do not start. Dense cataract in the left eye.Follow up:For surgery. Please keep post op appointments as scheduled.Z79.899 Other halfway ( current) drug [id number] Systemic lupus erythematosus, [id number] Nonexudative age-related macular degeneration, bilateral, early dry asoudF49.1 Presence of intraocular lensComments:The artifical lens implant in your right eye appears to be stable. Since this is the first day after surgery, your right eye is still dilated and the vision will still be slightly blurry. The dilation will go down over the next day or two. Continue taking your eye drops as directed on the surgical calendar. If you have any questions, please call our office. Functional Status Description No Information Available Mental Status Description No Information Available Referrals Description No Information Available
--- OUTSIDE RECORDS SUMMARY | 2019-08-19 15:28 | XMS REPORT | Continuity of Care Document ---
:1960 External Reference #:[id number] Author Name Nabila Barrera M.D. (transmitted by agent of provider Tayla Calhoun) Address [address] [facility], [place] [address] Care Team Providers Name Role Phone Nabila Barrera MD - Internal Care Team Information Set Up Mechanic [employer] Medicine Jamaal Wynn MD - Internal Medicine Care Team Information Set Up Mechanic [employer] Mark Thompson MD - Dermatology Care Team Information Set Up Mechanic [employer] [phone] Cisco Mcfarland - Nurse Care Team Information Set Up Mechanic [employer] [phone] Practitioner Alonzo Lebron MD - Rheumatology Care Team Information Set Up Mechanic [employer] [phone] Problems Active Problems Provider Date Systemic lupus erythematosus Nabila Barrera M.D. 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 Onset: 06/2014 Cerebrovascular disease Emile Hawkins M.D. Onset: 01/27/2014 Hidradenitis Nabila Barrera M.D. 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 Onset: 10/12/2015 Osteopenia Nabila Barrera M.D. Onset: 05/15/2016 Prosthetic arthroplasty of the hip Lizzy Ireland M.D. Onset: 07/29/2016 Essential hypertension Nabila Barrera M.D. Onset: 12/09/2017 Hemiplegia of dominant side as late Bryce Fan II, M.D. Onset: 2017 effect of cerebrovascular disease Chronic kidney disease stage 3 Bryce Fan II, M.D. Onset: 04/11/2018 Gastroesophageal reflux disease Bryce Fan II, M.D. Onset: 04/11/2018 Cellulitis of right lower limb Jayden Carter MD Onset: 04/12/2018 Epilepsy Caroline Reyes D.O. Onset: 04/14/2018 Note: phenobarb level 26.27 Aug 2017; in [facility] database [address] García most recent May 2014 with no neurology visits after that Headache Jayden Carter MD Onset: 08/13/2018 Pain in right lower limb Jayden Carter MD Onset: 08/13/2018 Abnormal results of cardiovascular Kerry Moise M.D. Onset: 11/10/2018 function studies Social History Type Date Description Comments Sex Unknown Tobacco Use Start: Unknown Former Cigarette End: Unknown Smoker Smoking Status Reviewed: 07/15/19 Former Cigarette Smoker ETOH Use Denies alcohol use Tobacco Use Start: Unknown Patient is a former quit age 25; max 1 End: Unknown smoker pack per week or less briefly Recreational Drug Use Denies Drug Use Exercise Type/Frequency Does not exercise wals 2-3 blocks only due to hemiplegia Allergies, Adverse Reactions, Alerts Active Allergies Reaction Severity Comments Date Sulfa Antibiotics neutropenia facial swelling 05/16/2014 Nitrofurantoin leukopenia/neutropenia Severe 08/28/2016 Baclofen 09/23/2017 Inactive Allergies NKDA 04/28/2012 Medications Active Medications SIG Qnty Indications Ordering Date Provider Prinivil Every Day 30tabs Unknown 06/10/2019 5mg Tablets Aspirin 1 by mouth 28tabs Other Ordering 06/07/[address] every day Provider Heparin Lock Flush 0600,1800 Unknown 06/04/2019 10Unit/ML Solution Hydroxychloroquine Sulfate take 1 tablet 180tabs Z79.899 Cisco Mcfarland, 200mg by mouth SENIOR DRUPAL 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 28% Packet Amlodipine Besylate Take 1 Tablet By 90tabs I10 Ameya Rivera, 2017 10mg Mouth Every Day M.D. Tablets Floranex Every Day 15tabs Unknown 08/14/2018 Tablets Calcium 500+D3 1 tab by mouth 180tabs M85.89 Cisco Mcfarland, 12/18/2017 [id number] twice a day SENIOR DRUPAL DEVELOPER Tablets Phenobarbital 1 tab by mouth 60tabs Kate Arechiga MD 05/09/2012 64.8mg Tablets twice a day Gabapentin take 1 tablet by 180tabs Nabila Barrera, 600mg Tablets mouth two times M.D. daily Bystolic Take 1 Tablet By 90tabs Nabila Barrera, 5mg Tablets Mouth Every Day M.D. Pepcid 1 every day 90tabs Nabila Barrera, 20mg Tablets M.D. Acetaminophen ER 1 by mouth twice a Unknown 650mg day as needed Tablets ER Oxycodone-Acetaminophen 1 tabs by mouth Unknown every 4-6 hours as 5-325mg Tablets needed for pain Immunizations CPT Code Status Date Vaccine Reaction Lot # [id number] Given 08/27/2018 Influenza Virus Vaccine, Pt. tolerated well. [id number] Quadrivalent, Split, Preservative Free [id number] Given 07/01/2018 Pneumonia Vaccine [id number] 05983 Given 07/17/2017 Influenza Virus Vaccine, Quadrivalent, Split, Preservative Free 61307 Given 07/15/2016 Influenza Virus Vaccine, [id number] Quadrivalent, Split, Preservative Free 02284 Given 08/03/2015 Influenza Virus Vaccine, No reaction noted [id number] Quadrivalent, Split, Preservative Free 55520 Given 06/05/2015 Tdap - Tetanus/Diptheria/Acellular Pertussis 45166 Given 07/21/2014 Influenza Virus Vaccine, [id number] Quadrivalent, Split, Preservative Free 45969 Refused 08/12/2013 Tdap - Tetanus/Diptheria/Acellular Pertussis [id number] Refused 08/12/2013 Flu Vaccine Split Virus Preservative Free For Indiv [id number] Older Vital Signs Date Vital Result Comment 07/15/2019 11:11am Height 63 inches 5'3" Weight 149.00 lb Heart Rate 72 /min BP Systolic Sitting 109 mmHg BP Diastolic Sitting 74 mmHg O2 % BldC Oximetry 98 % BMI (Body Mass Index) 26.4 kg/m2 06/14/2019 1:05pm Height 63 inches 5'3" Weight 148.00 lb Heart Rate 82 /min BP Systolic Sitting 112 mmHg BP Diastolic Sitting 70 mmHg Respiratory Rate 14 /min Body Temperature 97.8 F BMI (Body Mass Index) 26.2 kg/m2 Results Test Date Facility Test Result H/L Range Note Urinalysis Profile 06/02/2019 [facility] Urine Color Yellow [address] [place] [address] [phone] Urine Appearance Cloudy Urine Specific [place] 1.011 Normal 1.010-1.030 Urine pH 7.0 Normal 5-9 Urine Urobilinogen Negative Negative Urine Ketones Negative Negative Urine Protein 3+(>=500 mg/dL) Abnormal Negative Urine Leukocytes 3+ Abnormal Negative Urine Blood Negative Negative Urine Nitrite Negative Negative Urine Bilirubin Negative Negative Urine Glucose Negative Negative Urine White Blood Cell 3+(>20/hpf) Abnormal Absent Urine Red Blood Cell 3+(>10/hpf) Abnormal Absent Urine Bacteria 1+ Abnormal Absent Urine Squamous Epithelial Cell Present Abnormal Absent Urine Culture And 06/02/2019 [facility] Urine SEE RESULT [address] [place] [address] [phone] Comp Metabolic 06/02/2019 [facility] Sodium 139 mmol/L Normal 135-[address] [place] [address] [phone] Potassium 4.2 mmol/L Normal 3.5-5.0 Chloride 105 mmol/L Normal 101-111 Co2 Carbon Dioxide 27 mmol/L Normal 22-32 Anion Gap 7 mmol/L Normal 2-11 Glucose 78 mg/dL Normal 70-100 Blood Urea Nitrogen 22 mg/dL Normal 6-24 Creatinine 1.56 mg/dL High 0.51-0.95 BUN/Creatinine Ratio 14.1 Normal 8-20 Calcium 9.3 mg/dL Normal 8.6-10.3 Total Protein 8.2 g/dL Normal 6.4-8.9 Albumin 4.1 g/dL Normal 3.2-5.2 Globulin 4.1 g/dL High 2-4 Albumin/Globulin Ratio 1.0 Normal 1-3 Total Bilirubin 0.20 mg/dL Normal 0.2-1.0 Alkaline Phosphatase 57 U/L Normal 34-104 Alt 11 U/L Normal 7-52 Ast 19 U/L Normal 13-39 Egfr Non- 34.0 >60 Egfr 41.1 >60 2 Laboratory test 06/02/2019 [facility] Troponin-I 0.00 <0.04 [address] (TnI) ng/[place] [address] [phone] CBC Auto Diff 06/02/2019 [facility] White Blood 3.9 Normal 3.5 -10.[address] Count 10^3/[place] [address] [phone] Red Blood Count 3.70 10^6/uL Normal 3.70-4.87 Hemoglobin 10.9 g/dL Low 12.0-16.0 Hematocrit 32 % Low 35-47 Mean Corpuscular Volume 85 fL Normal 80-97 Mean Corpuscular Hemoglobin 30 pg Normal 27-31 Mean Corpuscular HGB Conc 35 g/dL Normal 31-36 Red Cell Distribution Width 15 % Normal 10-15 Platelet Count 213 10^3/uL Normal 150-450 Mean Platelet Volume 7.4 fL Normal 7.4-10.4 Abs Neutrophils 2.2 10^3/uL Normal 1.5-7.7 Abs Lymphocytes 1.3 10^3/uL Normal 1.0-4.8 Abs Monocytes 0.3 10^3/uL Normal 0-0.8 Abs Eosinophils 0.1 10^3/uL Normal 0-0.6 Abs Basophils 0.0 10^3/uL Normal 0-0.2 Abs Nucleated RBC 0.0 10^3/uL Granulocyte % 57.8 % Lymphocyte % 32.4 % Monocyte % 7.2 % Eosinophil % 1.8 % Basophil % 0.8 % Nucleated Red Blood Cells % 0.1 Inr/Protime 06/02/2019 [facility] Inr 0.91 Normal 0.82-1.[address] [place] [address] [phone] Laboratory 06/02/2019 [facility] Partial Thrombo 36.5 Normal 26.0-38.0 test finding [address] [place] [address] [phone] Lipid Profile 06/02/2019 [facility] Triglycerides 306 mg/dL 5 (Trig/Chol/HDL [address] ) [place] [address] [phone] Cholesterol 164 mg/dL 6 HDL Cholesterol 65.0 mg/dL 7 LDL Cholesterol 38 mg/dL 8 Urine Culture And 05/20/2019 [facility] Urine SEE RESULT 9 , [address] [place] [address] [phone] Laboratory test 05/20/2019 [facility] Ferritin 31.4 ng/mL Normal 11-3 finding 07 [place] [address] [phone] Transferrin 210 mg/dL Normal 203-362 Iron & Iron Binding 05/20/2019 [facility] Iron 53 g/dL Normal 50-[address] [place] [address] [phone] Unsaturated Iron Binding < 279 g/dL Total Iron Binding Capacity 294 g/dL Normal 250-450 % Iron Saturation 18 % Normal 15-55 Urinalysis Profile 05/20/2019 [facility] [place] [address] [phone] Urine Appearance Turbid Urine Specific [place] 1.011 Normal 1.010-1.030 Urine pH 8.0 Normal 5-9 Urine Urobilinogen Negative Negative Urine Ketones Negative Negative Urine Protein 2+(100 mg/dL) Abnormal Negative Urine Leukocytes 3+ Abnormal Negative Urine Blood 1+ Abnormal Negative Urine Nitrite Negative Negative Urine Bilirubin Negative Negative Urine Glucose Negative Negative Urine White Blood Cell 3+(>20/hpf) Abnormal Absent Urine Red Blood Cell Absent Absent Urine Bacteria 1+ Abnormal Absent Urine Squamous Epithelial Cell Present Abnormal Absent Laboratory test 05/20/2019 [facility] C Reactive 6.73 mg/L Normal <8.[address] [place] [address] [phone] Anti Double Stranded Dna AB <12.3 IU/mL 11 Erythrocyte Sed Rate 47 mm/Hr High 0-29 Comp Metabolic 05/20/2019 [facility] Sodium 137 mmol/L Normal 135-[address] [place] [address] [phone] Potassium 4.6 mmol/L Normal 3.5-5.0 Chloride 105 mmol/L Normal 101-111 Co2 Carbon Dioxide 24 mmol/L Normal 22-32 Anion Gap 8 mmol/L Normal 2-11 Glucose 56 mg/dL Low 70-100 Blood Urea Nitrogen 24 mg/dL Normal 6-24 Creatinine 1.61 mg/dL High 0.51-0.95 BUN/Creatinine Ratio 14.9 Normal 8-20 Calcium 8.6 mg/dL Normal 8.6-10.3 Total Protein 7.2 g/dL Normal 6.4-8.9 Albumin 3.7 g/dL Normal 3.2-5.2 Globulin 3.5 g/dL Normal 2-4 Albumin/Globulin Ratio 1.1 Normal 1-3 Total Bilirubin 0.20 mg/dL Normal 0.2-1.0 Alkaline Phosphatase 55 U/L Normal 34-104 Alt 10 U/L Normal 7-52 Ast 17 U/L Normal 13-39 Egfr Non- 32.8 >60 Egfr 39.6 >60 12 CBC Auto 05/20/2019 [facility] White Blood 3.3 10^3/uL Low 3.5 -10.[address] [place] [address] [phone] Red Blood Count 3.40 10^6/uL Low 3.70-4.87 Hemoglobin 9.5 g/dL Low 12.0-16.0 Hematocrit 29 % Low 35-47 Mean Corpuscular Volume 85 fL Normal 80-97 Mean Corpuscular Hemoglobin 28 pg Normal 27-31 Mean Corpuscular HGB Conc 33 g/dL Normal 31-36 Red Cell Distribution Width 15 % Normal 10-15 Platelet Count 200 10^3/uL Normal 150-450 Mean Platelet Volume 7.8 fL Normal 7.4-10.4 Abs Neutrophils 1.8 10^3/uL Normal 1.5-7.7 Abs Lymphocytes 1.1 10^3/uL Normal 1.0-4.8 Abs Monocytes 0.2 10^3/uL Normal 0-0.8 Abs Eosinophils 0.1 10^3/uL Normal 0-0.6 Abs Basophils 0.0 10^3/uL Normal 0-0.2 Abs Nucleated RBC 0.0 10^3/uL Granulocyte % 54.7 % Lymphocyte % 34.3 % Monocyte % 7.4 % Eosinophil % 3.1 % Basophil % 0.5 % Nucleated Red Blood Cells % 0.0 Comp Metabolic 04/26/2019 [facility] Sodium 137 mmol/L Normal 135-145 [place] [address] [phone] Potassium 4.3 mmol/L Normal 3.5-5.0 Chloride 106 mmol/L Normal 101-111 Co2 Carbon Dioxide 25 mmol/L Normal 22-32 Anion Gap 6 mmol/L Normal 2-11 Glucose 80 mg/dL Normal 70-100 Blood Urea Nitrogen 24 mg/dL Normal 6-24 Creatinine 1.35 mg/dL High 0.51-0.95 BUN/Creatinine Ratio 17.8 Normal 8-20 Calcium 8.6 mg/dL Normal 8.6-10.3 Total Protein 7.4 g/dL Normal 6.4-8.9 Albumin 3.5 g/dL Normal 3.2-5.2 Globulin 3.9 g/dL Normal 2-4 Albumin/Globulin Ratio 0.9 Low 1-3 Total Bilirubin 0.20 mg/dL Normal 0.2-1.0 Alkaline Phosphatase 46 U/L Normal 34-104 Alt 8 U/L Normal 7-52 Ast 16 U/L Normal 13-39 Egfr Non- 40.3 >60 Egfr 48.7 >60 13 Laboratory 04/26/2019 [facility] Partial 34.5 Normal 26.0- 38.0 test finding [address] [facility] [place] [address] Time PTT [phone] Inr/Protime 04/26/2019 [facility] Inr 0.86 Normal 0.82-1.09 14 [facility] [place] [address] [phone] CBC Auto Diff 04/26/2019 [facility] White Blood 4.1 10^3/uL Normal 3.5-10.8 [place] [address] [phone] Red Blood Count 3.29 10^6/uL Low 3.70-4.87 Hemoglobin 9.3 g/dL Low 12.0-16.0 Hematocrit 28 % Low 35-47 Mean Corpuscular Volume 84 fL Normal 80-97 Mean Corpuscular Hemoglobin 28 pg Normal 27-31 Mean Corpuscular HGB Conc 34 g/dL Normal 31-36 Red Cell Distribution Width 15 % Normal 10-15 Platelet Count 232 10^3/uL Normal 150-450 Mean Platelet Volume 7.3 fL Low 7.4-10.4 Abs Neutrophils 1.9 10^3/uL Normal 1.5-7.7 Abs Lymphocytes 1.7 10^3/uL Normal 1.0-4.8 Abs Monocytes 0.3 10^3/uL Normal 0-0.8 Abs Eosinophils 0.1 10^3/uL Normal 0-0.6 Abs Basophils 0.0 10^3/uL Normal 0-0.2 Abs Nucleated RBC 0.0 10^3/uL Granulocyte % 46.8 % Lymphocyte % 41.7 % Monocyte % 7.4 % Eosinophil % 3.1 % Basophil % 1.0 % Nucleated Red Blood Cells % 0.5 CBC Auto 02/19/2019 [facility] White Blood 3.8 10^3/uL Normal 3.5-10.8 [address] [place] [address] [phone] Red Blood Count 3.24 10^6/uL Low 3.70-4.87 Hemoglobin 9.0 g/dL Low 12.0-16.0 Hematocrit 28 % Low 33-41 Mean Corpuscular Volume 85 fL Normal 80-97 Mean Corpuscular Hemoglobin 28 pg Normal 27-31 Mean Corpuscular HGB Conc 33 g/dL Normal 31-36 Red Cell Distribution Width 15 % Normal 10.5-15 Platelet Count 217 10^3/uL Normal 150-450 Mean Platelet Volume 7.1 fL Low 7.4-10.4 Abs Neutrophils 2.3 10^3/uL Normal 1.5-7.7 Abs Lymphocytes 1.0 10^3/uL Normal 1.0-4.8 Abs Monocytes 0.3 10^3/uL Normal 0-0.8 Abs Eosinophils 0.2 10^3/uL Normal 0-0.6 Abs Basophils 0 10^3/uL Normal 0-0.2 Abs Nucleated RBC 0 10^3/uL Granulocyte % 60.7 % Lymphocyte % 27.3 % Monocyte % 6.8 % Eosinophil % 4.6 % Basophil % 0.6 % Nucleated Red Blood Cells % 0 Comp Metabolic 02/19/2019 [facility] Sodium 140 mmol/L Normal 135-[address] [place] [address] [phone] Potassium 3.7 mmol/L Normal 3.5-5.0 Chloride 107 mmol/L Normal 101-111 Co2 Carbon Dioxide 27 mmol/L Normal 22-32 Anion Gap 6 mmol/L Normal 2-11 Glucose 74 mg/dL Normal 70-100 Blood Urea Nitrogen 21 mg/dL Normal 6-24 Creatinine 1.34 mg/dL High 0.51-0.95 BUN/Creatinine Ratio 15.7 Normal 8-20 Calcium 8.9 mg/dL Normal 8.6-10.3 Total Protein 6.9 g/dL Normal 6.4-8.9 Albumin 3.5 g/dL Normal 3.2-5.2 Globulin 3.4 g/dL Normal 2-4 Albumin/Globulin Ratio 1.0 Normal 1-3 Total Bilirubin 0.30 mg/dL Normal 0.2-1.0 Alkaline Phosphatase 53 U/L Normal 34-104 Alt 9 U/L Normal 7-52 Ast 15 U/L Normal 13-39 Egfr Non- 40.6 >60 Egfr 49.2 >60 16 Laboratory test 02/19/2019 [facility] C Reactive 5.32 mg/L Normal <8.[address] [place] [address] [phone] Erythrocyte Sed Rate 49 mm/Hr High 0-29 CBC Auto 01/15/2019 [facility] White Blood 4.0 10^3/uL Normal 3.5-10.[address] [place] [address] [phone] Red Blood Count 3.37 10^6/uL Low 3.70-4.87 Hemoglobin 9.3 g/dL Low 12.0-16.0 Hematocrit 28 % Low 33-41 Mean Corpuscular Volume 84 fL Normal 80-97 Mean Corpuscular Hemoglobin 28 pg Normal 27-31 Mean Corpuscular HGB Conc 33 g/dL Normal 31-36 Red Cell Distribution Width 13 % Normal 10.5-15 Platelet Count 242 10^3/uL Normal 150-450 Mean Platelet Volume 7.2 fL Low 7.4-10.4 Abs Neutrophils 2.6 10^3/uL Normal 1.5-7.7 Abs Lymphocytes 0.9 10^3/uL Low 1.0-4.8 Abs Monocytes 0.3 10^3/uL Normal 0-0.8 Abs Eosinophils 0.1 10^3/uL Normal 0-0.6 Abs Basophils 0 10^3/uL Normal 0-0.2 Abs Nucleated RBC 0 10^3/uL Granulocyte % 65.7 % Lymphocyte % 23.8 % Monocyte % 7.2 % Eosinophil % 2.4 % Basophil % 0.9 % Nucleated Red Blood Cells % 0 Comp Metabolic 01/15/2019 [facility] Sodium 138 mmol/L Normal 135-[address] [place] [address] [phone] Potassium 4.0 mmol/L Normal 3.5-5.0 Chloride 107 mmol/L Normal 101-111 Co2 Carbon Dioxide 26 mmol/L Normal 22-32 Anion Gap 5 mmol/L Normal 2-11 Glucose 75 mg/dL Normal 70-100 Blood Urea Nitrogen 17 mg/dL Normal 6-24 Creatinine 1.40 mg/dL High 0.51-0.95 BUN/Creatinine Ratio 12.1 Normal 8-20 Calcium 8.4 mg/dL Low 8.6-10.3 Total Protein 6.9 g/dL Normal 6.4-8.9 Albumin 3.5 g/dL Normal 3.2-5.2 Globulin 3.4 g/dL Normal 2-4 Albumin/Globulin Ratio 1.0 Normal 1-3 Total Bilirubin 0.20 mg/dL Normal 0.2-1.0 Alkaline Phosphatase 40 U/L Normal 34-104 Alt 9 U/L Normal 7-52 Ast 16 U/L Normal 13-39 Egfr Non- 38.6 >60 Egfr 46.7 >60 17 Laboratory test 01/15/2019 [facility] Erythrocyte Sed 71 mm/Hr High 0-[address] [place] [address] [phone] C Reactive Protein 9.60 mg/L High <8.01 Urinalysis Profile 01/15/2019 [facility] Urine Color Yellow [address] [place] [address] [phone] Urine Appearance Cloudy Urine Specific [place] 1.008 Low 1.010-1.030 Urine pH 6.0 Normal 5-9 Urine Urobilinogen Negative Negative Urine Ketones Negative Negative Urine Protein 2+(100 mg/dL) Abnormal Negative Urine Leukocytes 3+ Abnormal Negative Urine Blood 1+ Abnormal Negative Urine Nitrite Negative Negative Urine Bilirubin Negative Negative Urine Glucose Negative Negative Urine White Blood Cell 3+(>20/hpf) Abnormal Absent Urine Red Blood Cell 1+(3-5/hpf) Abnormal Absent Urine Bacteria 1+ Abnormal Absent Urine Squamous Epithelial Cell Present Abnormal Absent Urine Culture And 01/15/2019 [facility] Urine Culture SEE RESULT [address] [place] [address] [phone] Laboratory test 01/15/2019 [facility] Anti Double <12.3 IU/mL [address] [place] [address] [phone] Laboratory test 01/13/2019 [employer] [facility] Influenza A/B NEG A/NEG B finding Rapid 1 SEE RESULT BELOW Name: THAIS RAO : [address]: Patrciia Larsen MD Acct: [id number] Unit: [id number] AGE: 59 Location: [place] [address] Re06/02/19 SEX: F Status: ADM Dorothy SPEC: [id number] GENET: 06/02/[address] [facility] [address]: Gina Kyle MD REQ: [id number] RECD: 06/02/19 STATUS: MATTHEW MARTINEZ DR: Nabila Barrera MD _ SOURCE: URINE SPDESC: ORDERED: Urine Culture Procedure Result Reported Site Urine Culture Final 06/04/19- 1432 ML Organism 1 ESCHERICHIA COLI Mcf[place]an Count >100,000 (Many) CFU/ML 1. ESCHERICHIA COLI M.I.C. RX --------- ------ Ampicillin 8 S Cefazolin <=4 S Cefepime <=1 S Ceftriaxone <=1 S Ciprofloxacin <=0.25 S Gentamicin <=1 S Levofloxacin <=0.12 S Meropenem <=0.25 S Nitrofurantoin <=16 S Tetracycline 2 S Pipercillin/Tazobactam <=4 S Trimethoprim/Sulfamethoxazole <=20 S Amoxicillin/Clavulanic Acid 4 S Aztreonam <=1 S Contact the Microbiology Department for any additional antibiotic reporting. * ML - Main Lab . END OF REPORT DEPARTMENT OF PATHOLOGY, [address] [place] [address] Edwin Chanel M.D. Director [facility] # [id number] 2 Because ethnic data is not always readily available, this report includes an eGFR for both -Americans and non- Americans. The National Kidney Disease Education Program (NKDEP) does not endorse the use of the MDRD equation for patients that are not between the ages of 18 and 70, are , have extremes of body size, muscle mass, or nutritional status, or are non- or non-. According to the National Kidney Foundation, irrespective of diagnosis, the stage of the disease is based on the level of kidney function: Stage Description GFR(mL/min/1.73 m(2)) 1 Kidney damage with normal or decreased GFR 90 2 Kidney damage with mild decrease in GFR 60-89 3 Moderate decrease in GFR 30-59 4 Severe decrease in GFR 15-29 5 Kidney failure <15 (or dialysis) 3 Troponin-I testing on Plasma Separator Tubes (PST) has a known false positive rate of 0.20-0.40%. All positive troponins reflex immediately to secondary confirmatory testing. Using the BetUknow DxI 800 Access Immunoassay systems, the 99th percentile upper reference limit was demonstrated to be < 0.03 ng/mL. 4 Standard intensity warfarin therapeutic range: 2.0-3.0 High intensity warfarin therapeutic range: 2.5-3.5 5 Desirable: <150 Borderline High: 150-199 High: 200-499 Very High: >500 6 Desirable: <200 Borderline High: 200-239 High: >239 7 Low: <40 Desirable: 40-60 High: >60 8 Desirable: <100 Near Optimal: 100-129 Borderline High: 130-159 High: 160-189 Very High: >189 9 pr denied urinary symptoms. 10 SEE RESULT BELOW Name: THAIS RAO : [address]: Cisco Mcfarland NP Acct: [id number] Unit: [id number] AGE: 59 Location: LAB Re05/20/19 SEX: F Status: REG REF SPEC: [id number] GENET: 05/20/19-[address]: Cisco Mcfarland NP REQ: [id number] RECD: 05/20/19 STATUS: COMP _ SOURCE: URINE SPDESC: ORDERED: Urine Culture Procedure Result Reported Site Urine Culture Final 05/21/19- 1212 ML Organism 1 STREP GROUP B [place] Count >100,000 (Many) CFU/ML Susceptibility testing of penicillins and other B-lactams approved by FDA for treatment of Streptococcus pyogenes (Group A Strep) and Streptococcus agalactiae (Group B Strep) is not necessary for clinical purposes and need not be done routinely, since as with vancomycin, resistant strains have not been recognized. (CLSI K283-Y62;p.66) Positive isolates will be saved for one week. Please call the Microbiology Laboratory if further susceptibility testing is needed. * ML - Main Lab . END OF REPORT DEPARTMENT OF PATHOLOGY, [address] [place] [address] Edwin Chanel M.D. Director [facility] # [id number] 11 REFERENCE VALUE <30.0 (Negative) Test Performed by: [facility] [address] [place] [address] 12 Because ethnic data is not always readily available, this report includes an eGFR for both -Americans and non- Americans. The National Kidney Disease Education Program (NKDEP) does not endorse the use of the MDRD equation for patients that are not between the ages of 18 and 70, are , have extremes of body size, muscle mass, or nutritional status, or are non- or non-. According to the National Kidney Foundation, irrespective of diagnosis, the stage of the disease is based on the level of kidney function: Stage Description GFR(mL/min/1.73 m(2)) 1 Kidney damage with normal or decreased GFR 90 2 Kidney damage with mild decrease in GFR 60-89 3 Moderate decrease in GFR 30-59 4 Severe decrease in GFR 15-29 5 Kidney failure <15 (or dialysis) 13 Because ethnic data is not always readily available, this report includes an eGFR for both -Americans and non- Americans. The National Kidney Disease Education Program (NKDEP) does not endorse the use of the MDRD equation for patients that are not between the ages of 18 and 70, are , have extremes of body size, muscle mass, or nutritional status, or are non- or non-. According to the National Kidney Foundation, irrespective of diagnosis, the stage of the disease is based on the level of kidney function: Stage Description GFR(mL/min/1.73 m(2)) 1 Kidney damage with normal or decreased GFR 90 2 Kidney damage with mild decrease in GFR 60-89 3 Moderate decrease in GFR 30-59 4 Severe decrease in GFR 15-29 5 Kidney failure <15 (or dialysis) 14 Standard intensity warfarin therapeutic range: 2.0-3.0 High intensity warfarin therapeutic range: 2.5-3.5 15 anemia slightly worsen Still OK to monitor 16 Because ethnic data is not always readily available, this report includes an eGFR for both -Americans and non- Americans. The National Kidney Disease Education Program (NKDEP) does not endorse the use of the MDRD equation for patients that are not between the ages of 18 and 70, are , have extremes of body size, muscle mass, or nutritional status, or are non- or non-. According to the National Kidney Foundation, irrespective of diagnosis, the stage of the disease is based on the level of kidney function: Stage Description GFR(mL/min/1.73 m(2)) 1 Kidney damage with normal or decreased GFR 90 2 Kidney damage with mild decrease in GFR 60-89 3 Moderate decrease in GFR 30-59 4 Severe decrease in GFR 15-29 5 Kidney failure <15 (or dialysis) 17 Because ethnic data is not always readily available, this report includes an eGFR for both -Americans and non- Americans. The National Kidney Disease Education Program (NKDEP) does not endorse the use of the MDRD equation for patients that are not between the ages of 18 and 70, are , have extremes of body size, muscle mass, or nutritional status, or are non- or non-. According to the National Kidney Foundation, irrespective of diagnosis, the stage of the disease is based on the level of kidney function: Stage Description GFR(mL/min/1.73 m(2)) 1 Kidney damage with normal or decreased GFR 90 2 Kidney damage with mild decrease in GFR 60-89 3 Moderate decrease in GFR 30-59 4 Severe decrease in GFR 15-29 5 Kidney failure <15 (or dialysis) 18 Test Performed by: [facility] [address] [place] [address] [id number] Chanel M.D. Director of Laboratory 19 SEE RESULT BELOW Name: THAIS RAO : [address]: Cisco Mcfarland NP Acct: [id number] Unit: [id number] AGE: 58 Location: [facility] Re01/15/19 SEX: F Status: REG REF SPEC: [id number] GENET: 01/15/19-[address]: Cisco Mcfarland NP REQ: [id number] RECD: 01/15/19-1515 STATUS: COMP _ SOURCE: URINE SPDESC: ORDERED: Urine Culture Procedure Result Reported Site Urine Culture Final 01/16/19- 1428 ML Organism 1 STREP GROUP B Mcfarlan Count >100,000 (Many) CFU/ML Susceptibility testing of penicillins and other B-lactams approved by FDA for treatment of Streptococcus pyogenes (Group A Strep) and Streptococcus agalactiae (Group B Strep) is not necessary for clinical purposes and need not be done routinely, since as with vancomycin, resistant strains have not been recognized. (CLSI M390-L86;p.66) Positive isolates will be saved for one week. Please call the Microbiology Laboratory if further susceptibility testing is needed. * ML - Main Lab . END OF REPORT DEPARTMENT OF PATHOLOGY, [address] [place] [address] Edwin Chanel M.D. Director [facility] # [id number] 20 REFERENCE VALUE <30.0 (Negative) Test Performed by: [address] [address] Procedures Date Code Description Status 06/16/2019 897723122 Diabetic Retinal Eye Exam Completed 01/28/2019 [id number] Bone Mineral Density Test Completed 01/28/2019 [id number] Mammogram Completed 01/13/2018 [id number] Mammogram Completed 12/25/2017 [id number] Diabetic Retinal Eye Exam Completed 09/27/2016 [id number] Mammogram Completed 04/30/2016 [id number] Bone Mineral Density Test Completed 09/07/2015 [id number] Mammogram Completed 08/22/2014 [id number] Colonoscopy Completed 06/22/2014 [id number] Mammogram Completed 06/18/2013 [id number] Mammogram Completed 10/27/2009 [id number] Colonoscopy Completed Medical Devices Description No Information Available Encounters Type Date Location Provider Dx Diagnosis Office Visit 06/14/2019 [facility] Aiden Maciel Z87.440 Personal history 1:20p Hermes Mitchell M.D. of urinary (tract) Diseases infections R19.7 Diarrhea, unspecified Office Visit 06/04/2019 11:31a [facility] Scott I69.30 Unspecified Assoc,pc ANALI Perez sequelae of Hospitalists cerebral infarction N39.0 Urinary tract infection, site not specified B96.20 Unsp Escherichia coli as the cause of diseases classd elswhr G40.909 Epilepsy, unsp, not intractable, without status epilepticus N18.3 Chronic kidney disease, stage 3 (moderate) Office Visit 06/03/2019 8:36a [facility] Scott Perez, R53.1 Weakness Assoc,pc Hospitalists [place] N18.3 Chronic kidney disease, stage 3 (moderate) G40.909 Epilepsy, unsp, not intractable, without status epilepticus N39.0 Urinary tract infection, site not specified M32.9 Systemic lupus erythematosus, unspecified Office Visit 06/02/2019 8:35a [facility] Patricia Larsen, R42 Dizziness and Assoc,teodora Chahal 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 respiratory infection, unspecified Assessments Date Code Description Provider 07/15/2019 Z00.00 Encounter for general adult medical Nabila Barrera M.D. examination without abnormal findings 07/15/2019 Z01.818 Encounter for other preprocedural Nabila Barrera M.D. 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 bilateral 07/15/2019 M32.9 Systemic lupus erythematosus, Nabila Barrera M.D. unspecified 07/15/2019 N18.3 Chronic kidney disease, stage 3 Nabila Barrera M.D. (moderate) 07/15/2019 G40.89 Other seizures Nabila Barrera M.D. 07/15/2019 D64.9 Anemia, unspecified Nabila Barrera M.D. 07/15/2019 I10 Essential (primary) hypertension Nabila Barrera M.D. 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 07/15/2019 R94.39 Abnormal result of other cardiovascular Nabila Barrera M.D. function study 07/15/2019 Z23 Encounter for immunization Nabila Barrera M.D. 06/14/2019 Z87.440 Personal history of urinary (tract) Aiden Mitchell M.D. infections 06/14/2019 R19.7 Diarrhea, unspecified Aiden Mitchell M.D. 06/10/2019 I69.30 Unspecified sequelae of cerebral ANALI Galeas-Bernabe infarction 06/10/2019 N39.0 Urinary tract infection, site not LATOSHA GaleasC specified 06/10/2019 B96.20 Unspecified Escherichia coli [E. coli] ANALI Galeas as the cause of diseases classified elsewhere 06/10/2019 G40.909 Epilepsy, unspecified, not intractable, Munira Sanchez PA-C without status epilepticus 06/04/2019 I69.30 Unspecified sequelae of cerebral ANALI García infarction 06/04/2019 N39.0 Urinary tract infection, site not ANALI García specified 06/04/2019 B96.20 Unspecified Escherichia coli [E. coli] ANALI García as the cause of diseases classified elsewhere 06/04/2019 G40.909 Epilepsy, unspecified, not intractable, ANALI García without status epilepticus 06/04/2019 N18.3 Chronic kidney disease, stage 3 ANALI García (moderate) 06/03/2019 R53.1 Weakness ANALI García 06/03/2019 N18.3 Chronic kidney disease, stage 3 ANALI García (moderate) 06/03/2019 G40.909 Epilepsy, unspecified, not intractable, ANALI García without status epilepticus 06/03/2019 N39.0 Urinary tract infection, site not ANALI García specified 06/03/2019 M32.9 Systemic lupus erythematosus, ANALI García unspecified 06/02/2019 R42 Dizziness and giddiness Patricia Larsen M.D. 06/02/2019 R53.1 Weakness Patricia Larsen M.D. 06/02/2019 N39.0 Urinary tract infection, site not Patricia Larsen M.D. specified 05/11/2019 M32.10 Systemic lupus erythematosus, organ or Omaofia Bartolo, SENIOR DRUPAL DEVELOPER system involvement un 05/11/2019 D64.9 Anemia, unspecified Omaofia Bartolo, SENIOR DRUPAL DEVELOPER 05/11/2019 I69.351 Hemiplegia and hemiparesis following Omaofidavid Mcfarland, SENIOR DRUPAL DEVELOPER cerebral infarction aff 05/11/2019 M25.571 Pain in right ankle and joints of right Omaofia Bartolo, SENIOR DRUPAL DEVELOPER foot 05/11/2019 M79.604 Pain in right leg Omaofia Bartolo, SENIOR DRUPAL DEVELOPER 05/11/2019 K59.03 Drug induced constipation Omaofia Bartolo, SENIOR DRUPAL DEVELOPER 05/11/2019 Z79.899 Other mcfp (current) drug therapy Omaofia Bartolo, SENIOR DRUPAL DEVELOPER 02/17/2019 Z96.641 Presence of right artificial hip joint Eleazar Canseco M.D. 02/17/2019 Z96.642 Presence of left artificial hip joint Eleazar Canseco M.D. 02/17/2019 Z47.1 Aftercare following joint replacement Eleazar Canseco M.D. surgery 02/04/2019 K64.8 Other hemorrhoids Segundo Lynne MD 02/04/2019 N18.9 Chronic kidney disease, unspecified Segundo Lynne MD 02/04/2019 K59.03 Drug induced constipation Segundo Lynne MD 02/04/2019 I10 Essential (primary) hypertension Segundo Lynne MD 02/04/2019 I69.351 Hemiplegia and hemiparesis following Segundo Lynne MD cerebral infarction aff 02/04/2019 G40.909 Epilepsy, unspecified, not intractable, Segundo Lynne MD without status epile 02/04/2019 D64.9 Anemia, unspecified Segundo Lynne MD 01/26/2019 K64.8 Other hemorrhoids Andra Tenorio MD 01/19/2019 R94.39 Abnormal result of other cardiovascular Niurka Gonzalez NP function study 01/19/2019 I35.1 Nonrheumatic aortic (valve) Niurka Gonzalez NP insufficiency 01/19/2019 N18.9 Chronic kidney disease, unspecified Niurka Gonzalez NP 01/19/2019 E78.2 Mixed hyperlipidemia Niurka Gonzalez NP 01/13/2019 J06.9 Acute upper respiratory infection, Nabila Barrera M.D. unspecified Plan of Treatment Future Appointment(s):07/26/2019 1:40 pm - Aiden Mitchell M.D. at [facility] Iibxmylv35/19/2019 - Nabila Barrera M.D.Z00.00 Encounter for general adult medical examination without abnormal findingsComments:GENERAL PHYSICAL EXAM:You are up to date with your vaccinations. You should receive the flu vaccine, You received a pneumonia vaccine today I recommend regular screening mammography which is up todate this year Your last colonoscopy was in 2014A follow up colonoscopy is due in 2023I think that it is a good idea to have an Advance Directive on file here.We reviewed healthy lifestyle practices, specifically, strategies to maintain a durable ideal body weight and an aerobic exercise routine.Z01.818 Encounter for other preprocedural ijmifhcwtvzQ16.23 Age -related cataract, morgagnian type, ooryoagoqT28.9 Systemic lupus erythematosus , ucrgnrpmdbvC39.3 Chronic kidney disease, stage 3 (moderate)G40.89 Other seizuresComments:stable on BwsbuloilyornX75.9 Anemia, unspecifiedComments: Anemia of CKDI10 Essential (primary) fooqwzfpgoisQ93.351 Hemiplegia and hemiparesis following cerebral infarction affComments:history of CVA , qlrkrrD14.22 Impacted cerumen, left earNew Orders:Ear Irrigation, Ordered: 07/15R94.39 Abnormal result of other cardiovascular function studyComments:Please see your hematology specialist Dr. Moise as it has been [id number] Encounter for immunizationImmunizations/Injections:Pneumococcal Conjugate Vaccine 13 Valent For Intramuscular Use Functional Status Functional Condition Comment Date Status Standard walker is used to ambulate Active Quad cane is used with the left hand to ambulate Active Mental Status Description No Information Available Referrals Refer to Reason for Referral Status Appt Date Segundo Lynne MD 58 F with history of stroke, presented to ED Closed 02/04 with bleeding per rectum, thought to be from external hemorrhoid. She has never had a colonoscopy before. [address] [place] [address] [phone]
[2019-08-19 15:34] LABS: Urine Appearance Cloudy; Urine Bacteria 1+ (Absent); Urine Bilirubin Negative (Negative); Urine Blood Negative (Negative); Urine Color Yellow; Urine Glucose Negative (Negative); Urine Ketones Negative (Negative); Urine Nitrite Negative (Negative); Urine Protein 2+(100 mg/dL) (Negative); Urine Red Blood Cell 2+(6-10/hpf) (Absent); Urine Specific Gravity 1.011 (1.010-1.030); Urine Squamous Epithelial Cell Present (Absent); Urine Urobilinogen Negative (Negative); Urine White Blood Cell 3+(>20/hpf) (Absent)
[2019-08-19 17:18] LABS: ABS Eosinophils 0.1 10^3/ul (0-0.6); ABS Lymphocytes 0.9 10^3/ul (1.0-4.8); ABS Monocytes 0.3 10^3/ul (0-0.8); ABS Neutrophils 6.1 10^3/ul (1.5-7.7); Eosinophil % 1.2 %; Hematocrit 30 % (35-47); Hemoglobin 9.9 g/dL (12.0-16.0); Lymphocyte % 12.4 %; Mean Corpuscular HGB Conc 33 g/dL (31-36); Mean Corpuscular Hemoglobin 28 pg (27-31); Mean Corpuscular Volume 85 fL (80-97); Mean Platelet Volume 7.6 fL (7.4-10.4); Platelet Count 210 10^3/uL (150-450); Red Blood Count 3.55 10^6 /uL (3.70-4.87); Red Cell Distribution Width 15 % (10-15); White Blood Count 7.4 10^3/uL (3.5-10.8)
[2019-08-19 17:24] VITALS: BP 138/88
[2019-08-19 17:29] LABS: Albumin 3.8 g/dL (3.2-5.2); Albumin/Globulin Ratio 0.9 (1-3); BUN/Creatinine Ratio 15.6 (8-20); EGFR Non-African American 36.4 (>60); Globulin 4.1 g/dL (2-4); Total Bilirubin 0.2 mg/dL (0.2-1.0); Total Protein 7.9 g/dL (6.4-8.9)
[2019-08-19 17:36] LABS: Potassium 4.2 mmol/L (3.5-5.0)
[2019-08-19] MEDS ORDERED: Amoxicillin/Clavulanate TAB* 875 MG PO ONE (17:52)
--- NOTE | 2019-08-21 08:54 | ED ---
Imaging and Labs Follow Up Follow Up Type: Labs/Cultures Labs/Culture Result: citrobacter braakii 50-75,000 and strept group b 10-25,000 Patient Communication/Plan: patient placed on augmetin which should be sensitive to. no further action required. Provider Diagnoses: UTI (urinary tract infection)
--- NOTE | 2019-08-22 05:51 | ED ---
Imaging and Labs Follow Up Follow Up Type: Labs/Cultures Labs/Culture Result: patient urine culture grew citrobacter 50-75,000 which is resistant to augmentin which is placed on. will place on cipro 500mg bid x3 days. Patient Communication/Plan: spoke with patient about additional antibiotic needed. Provider Diagnoses: UTI (urinary tract infection)
== END 2019-08-19 18:00 | disposition home or self-care (01) ==
LOC: ED 15:04
DX: N39.0 Urinary tract infection, site not specified (principal); B96.89 Other specified bacterial agents as the cause of diseases classified elsewhere; N93.9 Abnormal uterine and vaginal bleeding, unspecified; K59.00 Constipation, unspecified; M32.9 Systemic lupus erythematosus, unspecified; Z86.711 Personal history of pulmonary embolism; Z86.718 Personal history of other venous thrombosis and embolism; Z79.01 Long term (current) use of anticoagulants; I12.9 Hypertensive chronic kidney disease with stage 1 through stage 4 chronic kidney disease, or unspecified chronic kidney disease; N18.2 Chronic kidney disease, stage 2 (mild); Z96.643 Presence of artificial hip joint, bilateral; Z90.710 Acquired absence of both cervix and uterus; Z90.722 Acquired absence of ovaries, bilateral; Z88.1 Allergy status to other antibiotic agents; Z88.5 Allergy status to narcotic agent; Z88.2 Allergy status to sulfonamides; Z88.8 Allergy status to other drugs, medicaments and biological substances; Z87.891 Personal history of nicotine dependence
CPT/HCPCS: 36415; 80053; 81003; 81015; 85025; 87077; 87086; 87186; 99283; A9270-GY

== ENCOUNTER 2019-10-25 00:56 | Emergency (ER) | payer MEDICARE, MEDICAID, OTHER ==
[2019-10-25 01:00] VITALS: BP 127/78
--- OUTSIDE RECORDS SUMMARY | 2019-10-25 01:10 | XMS REPORT ---
:1960 Author Organization [facility] Care Team Providers Name Role Phone Unavailable Unavailable Unavailable Problems Condition Condition Condition Status Onset Resolution Last Treating Comments Name Details Category Date Date Treatment Clinician Date Systemic Systemic Diagnosis Active 2016-10 Jenelle lupus lupus 10-27 Wing erythematos erythematos [id number] us, us, unspecified unspecified Pain in Pain in Diagnosis Active 2016-10 Jenelle right arm right arm 10-27 Wing [id number] Pain in Pain in Diagnosis Active 2016-10 Jenelle right lower right lower 10-27 Wing leg leg [id number] Contracture Contracture Diagnosis Active Jenelle , right , 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 [id number] Urinary Urinary Diagnosis Active 2016-10 Jenelle tract tract 11-03 Wing infection, infection, [id number] site not site not specified specified Hypertensiv Hypertensiv Diagnosis Active 2016-10 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 chr kdny chr kdny 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, disease, [id number] stage 2 stage 2 (mild) (mild) 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, disorder, [id number] single single episode, episode, unspecified unspecified Spinal Spinal Diagnosis Active Jenelle stenosis, stenosis, Wing site site [id number] unspecified unspecified 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, hip joint, [id number] bilateral bilateral Epilepsy, Epilepsy, Diagnosis Active Jenelle unsp, not unsp, not Wing intractable intractable [id number] , without , without status status epilepticus epilepticus 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 frequent Pain Mgmt Resolve 2016-102019-04-23 Maria A pain d 11-03 15:40:00 Jaquan 14:09: [id number] 00 Nutrition nutritional Nutrition Resolve 2016-102017-09-30 Maria A restriction d 11-03 14:00:00 Jaquan s 14:09: [id number] 00 Elimination knowledge/s Eliminatio Resolve 2016-102017-09-30 Maria A kill n d 11-03 14:00:00 Jaquan deficit: pt 14:09: [id number] 00 Elimination urinary Eliminatio Resolve 2016-102017-09-30 Maria A incontinenc n d 11-03 14:00:00 Jaquan e 14:09: [id number] 00 Elimination UTI within Eliminatio Resolve 2016-102017-09-30 Maria A past 14 n d 11-03 14:00:00 Jaquan days 14:09: [id number] 00 Activity ADL Activity Unknown 2016-10 Quality assistance 11-03 Realtime required 14:09: 00 Safety risk for Safety Resolve 2016-102017-09-23 Maria A hospitaliza d 11-03 09:45:00 Jaquan tion 14:09: [id number] 00 Medication potential Meds Resolve 2016-102017-10-02 Maria A clinically d 11-03 13:30:00 Jaquan significant 14:09: [id number] medication 00 issue Medication oral med Meds Resolve 2016-102017-10-02 Maria A assistance d 11-03 13:30:00 Jaquan required 14:09: [id number] 00 Elimination recurring Eliminatio Resolve 2016-102017-09-30 Maria A UTI n d 11-10 14:00:00 Jaquan 14:00: [id number] 00 Safety risk for Safety Resolve 2016-102017-09-30 Maria A hospitaliza d 11-25 14:00:00 Jaquan tion 11:04: [id number] 00 Nutrition nutritional Nutrition Resolve 2016-102017-10-07 Maria A restriction d 12-03 11:06:00 Jaquan s 13:30: [id number] 00 Elimination urinary Eliminatio Resolve 2016-102017-10-02 Maria A incontinenc n d 12-03 13:30:00 Jaquan e 13:30: [id number] 00 Safety risk for Safety Resolve 2016-102017-10-07 Maria A hospitaliza d 12-03 11:06:00 Jaquan tion 13:30: [id number] 00 Elimination urinary Eliminatio Resolve 2016-102017-10-28 Maria A incontinenc n d 12-22 09:32:00 Jaquan e 10:14: [id number] 00 Elimination constipatio Eliminatio Resolve 2016-102017-10-28 Maria A n n d 12-22 09:32:00 Jaquan 10:14: [id number] 00 Pain frequent Pain Mgmt Unknown Maria A pain 10-28 Jaquan 09:32: [id number] 00 Activity ADL Activity Resolve 2018-02-10 Maria A assistance d 10-28 11:05:00 Jaquan required 09:32: [id number] 00 Elimination urinary Eliminatio Resolve 2017-12-17 Mehnaz incontinenc n d 11-04 11:35:00 [place] e 13:15: [id number] 00 Safety risk for Safety Active Mehnaz hospitaliza 11-04 Ugalde tion 13:15: [id number] 00 Safety can be left Safety Active Mehnaz alone for 11-04 Ugalde only short 13:15: [id number] periods 00 Elimination urinary Eliminatio Resolve 2018-02-26 Maria A incontinenc n d 12-31 12:00:00 Jaquan e 10:00: [id number] 00 Medication oral med Meds Resolve 2018-02-26 Maria A assistance d 12-31 12:00:00 Jaquan required 10:00: [id number] 00 Medication injectable Meds Resolve 2018-02-26 Maria A med d 12-31 12:00:00 Jaquan assistance 10:00: [id number] required 00 Elimination constipatio Eliminatio Resolve 2018-02-26 Maria A n n d 01-20 12:00:00 Jaquan 11:19: [id number] 00 Safety fire risk Safety Active Maria A present 04-11 Eliz 12:00: [id number] 00 Elimination urinary Eliminatio Resolve 2018-09-03 Maria A incontinenc n d 04-16 11:30:00 [place] e 11:56: [id number] 00 Medication oral med Meds Resolve 2018-12-24 Maria A assistance d 04-16 13:24:00 Eliz required 11:56: [id number] 00 Safety fall risk Safety Active Maria A factor 06-25 [place] present 14:00: [id number] 00 Pain frequent Pain Mgmt Unknown 2017-10 Maria A pain 10-28 [place] 13:00: [id number] 00 Endo/López anti-coagul Endo/López Resolve 2017-102019-06-24 Maria A ation d 11-03 13:34:00 [place] therapy 11:30: [id number] 00 Elimination urinary Eliminatio Resolve 2017-102019-02-22 Maria A incontinenc n d 14:30:00 Eliz e 14:34: [id number] 00 Nutrition nutritional Nutrition Active Princess restriction 2-14 Seager s 13:11: [id number] 00 Cardio chest pain Cardiovasc Resolve 2019-09-16 Maria A ular d 12-24 13:52:00 Eliz 13:24: [id number] 00 Elimination urinary Eliminatio Resolve 2019-08-19 Maria A incontinenc n d 04-23 13:50:00 Eliz e 15:40: [id number] 00 Safety can be left Safety Unknown Maria A alone for 04-23 Eliz only short 15:40: [id number] periods 00 Pain frequent Pain Mgmt Resolve 2019-06-24 Kaye pain d 16 13:34:00 [place] 09:20: [id number] 00 Elimination UTI within Eliminatio Resolve 2019-08-19 Kaye past 14 n d 06-11 13:50:00 [place] days 09:20: [id number] 00 Elimination bowel Eliminatio Resolve 2019-08-19 Kaye incontinenc n d 06-11 13:50:00 [place] e 09:20: [id number] 00 Neuro confusion Neuro/Emot Active Kaye present ion 06-11 [place] 09:20: [id number] 00 Activity ADL Activity Unknown Kaye assistance 06-11 [place] required 09:20: [id number] 00 Activity self-care Activity Active Kaye deficit 06-11 [place] 09:20: [id number] 00 Medication oral med Meds Resolve 2019-06-24 Kaye assistance d 06-11 13:34:00 [place] required 09:20: [id number] 00 Musculoskel transfer Musculoske Resolve 2019-09-16 Kaye etal assistance letal d 06-11 13:52:00 [place] required 09:20: [id number] 00 Musculoskel requires Musculoske Resolve 2019-09-16 Kaye etal human letal d 06-11 13:52:00 [place] assist to 09:20: [id number] leave home 00 Activity ADL Activity Active Elizabeth A. assistance 07-08 [facility] required 14:57: e 00 [id number] Medication potential Meds Active Princess clinically 07-22 Seager significant 14:30: [id number] medication 00 issue Elimination urinary Eliminatio Resolve 2018-102019-09-16 Maria A incontinenc n d 11-02 13:52:00 [place] e 11:45: [employer] 00 [id number] Elimination urinary Eliminatio Active 2018-10 Maria A incontinenc n 12-01 Tree e 10:32: [employer] 00 [id number] Allergies, Adverse Reactions, Alerts Allergy Name Allergy Status Severity Reaction(s) Onset Inactive Treating Comments Type Date Date Clinician fentanyl Base Active Unknown Rash, Hives, 2016-10 Angy Ingredient itchy -16 Primitivo [id number] Sulfa Allergen Active Unknown Facial 2016-10 Angy (Sulfonamide Group Redness/ -16 Primitivo Antibiotics) Flushing [id number] baclofen Base Active Moderate Unknown 2016-10 Angy Ingredient 1-16 Primitivo [id number] nitrofuranto Base Active Unknown Reaction 2016-10 Angy in Ingredient Unknown 11-11 Primitivo [id number] rosuvastatin Base Active Unknown extreme Princess Ingredient fatigue and 2- Seager CP [id number] Medications Ordered Filled Start Stop Current Ordering Indication Dosage Frequency Signature Comments Components Medication Medication Date Date Medication? Clinician (SIG) Name Name amLODIPine amLODIPine 2016-10- No Barrera 1/2 tab Unknown 5 mg tablet 5 mg tablet 11-03 Nabila BENSON gabapentin gabapentin 2016-10 No Barrera 600 mg Unknown 600 mg 600 mg 11-03 ,Nabila tablet tablet hydroxychlo hydroxychlo 2016-10- No Barrera 200 mg Unknown roquine 200 roquine 200 11-03 Adriel BENSONNabila mg tablet mg tablet Bystolic 5 Bystolic 5 2016-10 No Barrera 5 mg Unknown mg tablet mg tablet 11-03 Nabila BENSON PHENobarbit PHENobarbit 2016-10- Barrera 60 mg Unknown al 60 mg al 60 mg 11-03 MDNabila tablet tablet oxyCODONE-a oxyCODONE-a 2016-10- No Barrera 1 Unknown cetaminophe cetaminophe 11-03 Adriel BENSONNabila tablet n 5 mg-325 n 5 mg-325 do not mg tablet mg tablet exceed 6 per day calcium calcium 2016-10- No Barrera 1 Unknown carbonate carbonate 11-03 ,Nabila tablet 600 mg 600 mg (1,500 (1,500 mg)-vitamin mg)-vitamin D3 400 unit D3 400 unit tablet tablet hydroxychlo hydroxychlo No Barrera 1 tab Unknown roquine 200 roquine 200 ,Nabila mg tablet mg tablet Calcium 600 Calcium 600 No Barrera 1 tab Unknown + D(3) 600 + D(3) 600 Adriel BENSONNabila mg (1,500 mg (1,500 mg)-400 mg)-400 unit tablet unit tablet gabapentin gabapentin No Barrera 1 tab Unknown 600 mg 600 mg Adriel BENSONNabila tablet tablet Bystolic 5 Bystolic 5 No Barrera 1 tab Unknown mg tablet mg tablet Nabila BENSON cyclobenzap cyclobenzap No Barrera 1 tab Unknown rine 10 mg rine 10 mg MDNabila tablet tablet baclofen 20 baclofen 20 No Barrera 1 tab Unknown mg tablet mg tablet Nabila BENSON baclofen 10 baclofen 10 No Harleen 2 tabs Unknown mg tablet mg tablet MDDirk (20 mg) famotidine famotidine No Harleen 20 mg Unknown 20 mg 20 mg MD,Dirk tablet tablet Pepcid 20 Pepcid 20 2016-10- No Barrera 20mg Unknown mg tablet mg tablet 11-03 ,Nabila amLODIPine amLODIPine 2016-10 No Barrera 1 tab Unknown 5 mg tablet 5 mg tablet 11-09 ,Nabila amLODIPine amLODIPine 2016-10 No Barrera 2.5 mg Unknown 5 mg tablet 5 mg tablet 11-09 ,Nabila hydroxychlo hydroxychlo 2016-10- No Barrera 200 mg Unknown roquine 200 roquine 200 11-03 ,Nabila mg tablet mg tablet oxyCODONE-a oxyCODONE-a 2016-10- No Bruce 5/325 Unknown cetaminophe cetaminophe 11-03 ,Nabila mg n 5 mg-325 n 5 mg-325 mg tablet mg tablet amLODIPine amLODIPine 2016-10 No Bruce 1 tab Unknown 5 mg tablet 5 mg tablet 11-17 ,Nabila PHENobarbit PHENobarbit 2016-10 No Barrera 1 Unknown al 64.8 mg al 64.8 mg 11-04 ,Nabila tablet tablet tablet levoFLOXaci levoFLOXaci 2017- No Barrera 500mg Unknown n 500 mg n 500 mg 01-17 ,Nabila for 5 tablet tablet days clindamycin clindamycin 2017- No Barrera 300 mg Unknown HCl 300 mg HCl 300 mg 04-16 ,Nabila capsule capsule clindamycin clindamycin 2017- No Barrera 300 mg Unknown HCl 300 mg HCl 300 mg 04-16 ,Nabila capsule capsule Aspirin Low Aspirin Low 2017-10- No Barrera Unknown Unknown Dose 81 mg Dose 81 mg 08-16 ,Nabila tablet,jorge tablet,jorge yed release yed release amLODIPine amLODIPine 2017-10 No Barrera Unknown Unknown 10 mg 10 mg 0- MD,Nabila tablet tablet Tylenol 8 Tylenol 8 2017-10 No Barrera Unknown Unknown Hour 650 mg Hour 650 mg 0- MD,Nabila tablet,exte tablet,exte nded nded release release clindamycin clindamycin 2017-10- No Bruce Unknown Unknown HCl 300 mg HCl 300 mg 0- ,Nabila capsule capsule Floranex 1 Floranex 1 2017-10- No Bruce Unknown Unknown million million 0-18 09- Nabila BENSON cell tablet cell tablet oxyCODONE-a oxyCODONE-a 2017-10 No Bruce Unknown Unknown cetaminophe cetaminophe 0- Nabila BENSON n 5 mg-325 n 5 mg-325 mg tablet mg tablet hydroxychlo hydroxychlo 2017-10- No Vi Unknown Unknown roquine 200 roquine 200 2-11-12 Jr,Alonzo mg tablet mg tablet J calcium calcium No Bruce Unknown Unknown carbonate carbonate 1- Nabila BENSON 600 600 mg(1,500 mg(1,500 mg)-vitamin mg)-vitamin D3 800 unit D3 800 unit chewable chewable tablet tablet rosuvastati rosuvastati 2018- No Stutsman Unknown Unknown n 5 mg n 5 mg 11-13 ,Kerry tablet tablet hydroxychlo hydroxychlo 2017-10- No Vi Unknown Unknown roquine 200 roquine 200 2- 07-17 Jr,Alonzo mg tablet mg tablet J Pepcid 20 Pepcid 20 2016-10 No Bruce Unknown Unknown mg tablet mg tablet 11-03 Nabila BENSON rosuvastati rosuvastati No Jose Maria Unknown Unknown n 5 mg n 5 mg 4- ,Kerry tablet tablet hydroxychlo hydroxychlo No Vi Unknown Unknown roquine 200 roquine 200 7-17 Jr,Alonzo mg tablet mg tablet J aspirin 325 aspirin 325 No Bruce Unknown Unknown mg tablet mg tablet 06-11 Nabila BENSON lisinopril lisinopril 2018- No Bruce Unknown Unknown 5 mg tablet 5 mg tablet 06-11 Nabila BENSON Privinil Privinil 2018-10 Yes Bruce Unknown Unknown 0- Nabila BENSON Vital Signs Vital Name Observation Time Observation Value Comments SYSTOLIC mm[Hg] 2019-10-18 18:09:30 128 mm[Hg] mm[Hg] Method: Sit SYSTOLIC mm[Hg] 2019-06-11 18:07:21 134 mm[Hg] mm[Hg] Method: Stand SYSTOLIC mm[Hg] 2019-08-19 18:08:30 106 mm[Hg] mm[Hg] Method: Lie DIASTOLIC mm[Hg] 2019-10-18 18:09:30 86 mm[Hg] mm[Hg] Method: Sit DIASTOLIC mm[Hg] 2019-06-11 18:07:21 76 mm[Hg] mm[Hg] Method: Stand DIASTOLIC mm[Hg] 2019-08-19 18:08:30 72 mm[Hg] mm[Hg] Method: Lie PULSE 2019-10-18 18:09:30 72 /min /min RESP RATE 2019-10-18 18:09:30 18 /min /min TEMP 2019-10-18 18:09:30 98.0 [degF] Procedures This patient has no known procedures. Results This patient has no known results.
--- OUTSIDE RECORDS SUMMARY | 2019-10-25 01:10 | XMS REPORT ---
:1960 Author Organization [facility] Care Team Providers Name Role Phone Unavailable Unavailable Unavailable Problems Condition Condition Condition Status Onset Resolution Last Treating Comments Name Details Category Date Date Treatment Clinician Date Systemic Systemic Diagnosis Active 2016-10 Jenelle lupus lupus 10-27 Wing erythematos erythematos [id number] us, us, unspecified unspecified Pain in Pain in Diagnosis Active 2016-10 Jenelle right arm right arm 10-27 Wing [id number] Pain in Pain in Diagnosis Active 2016-10 Jenelle right lower right lower 10-27 Wing leg leg [id number] Contracture Contracture Diagnosis Active Jenelle , right , right 10-27 Maciej elbow elbow [id number] Urinary Urinary Diagnosis Active 2016-10 Jenelle tract tract 11-03 Maciej infection, infection, [id number] site not site not specified specified I12.9 I12.9 Diagnosis Active 2016-10 Jenelle 11-09 Wing [id number] Pain frequent Pain Mgmt Resolve 2016-102019-04-23 Maria A pain d 11-03 15:40:00 Jaquan 14:09: [id number] 00 Nutrition nutritional Nutrition Resolve 2016-102017-09-30 Maria A restriction d 11-03 14:00:00 Jaquan s 14:09: [id number] 00 Elimination knowledge/s Eliminatio Resolve 2016-102017-09-30 Maria A kill n d 11-03 14:00:00 Jaquan deficit: pt 14:09: [id number] 00 Elimination urinary Eliminatio Resolve 2016-102017-09-30 Maria A incontinenc n d 11-03 14:00:00 Jaquan e 14:09: [id number] 00 Elimination UTI within Eliminatio Resolve 2016-102017-09-30 Maria A past 14 n d 11-03 14:00:00 Jaquan days 14:09: [id number] 00 Activity ADL Activity Unknown 2016-10 Quality assistance 11-03 Realtime required 14:09: 00 Safety risk for Safety Resolve 2016-102017-09-23 Maria Aelva pendletoniza d 11-03 09:45:00 Jaquan tion 14:09: [id number] 00 Medication potential Meds Resolve 2016-102017-10-02 Maria A clinically d 11-03 13:30:00 Jaquan significant 14:09: [id number] medication 00 issue Medication oral med Meds Resolve 2016-102017-10-02 Maria A assistance d 11-03 13:30:00 Jaquan required 14:09: [id number] 00 Elimination recurring Eliminatio Resolve 2016-102017-09-30 Maria A UTI n d 11-10 14:00:00 Jaquan 14:00: [id number] 00 Safety risk for Safety Resolve 2016-102017-09-30 [facility] 11-[facility] 14:00:00 Jaquan tion 11:04: [id number] 00 Nutrition nutritional Nutrition Resolve 2016-102017-10-07 Maria A restriction d 12-03 11:06:00 Jaquan s 13:30: [id number] 00 Elimination urinary Eliminatio Resolve 2016-102017-10-02 Maria A incontinenc n d 12-03 13:30:00 Jaquan e 13:30: [id number] 00 Safety risk for Safety Resolve 2016-102017-10-07 Maria A hospitaliza d 12-03 11:06:00 Jaquan tion 13:30: [id number] 00 Elimination urinary Eliminatio Resolve 2016-102017-10-28 Maria A incontinenc n d 12-22 09:32:00 Jaquan e 10:14: [id number] 00 Elimination constipatio Eliminatio Resolve 2016-102017-10-28 Maria A n n d 12-22 09:32:00 Jaquan 10:14: [id number] 00 Pain frequent Pain Mgmt Unknown Maria A pain 10-28 Jaquan 09:32: [id number] 00 Activity ADL Activity Resolve 2018-02-10 Maria A assistance d 10-28 11:05:00 Jaquan required 09:32: [id number] 00 Elimination urinary Eliminatio Resolve 2017-12-17 Mehnaz incontinenc n d 11-04 11:35:00 Ugalde e 13:15: [id number] 00 Safety risk for Safety Active Mehnaz hospitaliza 11-04 Ugalde tion 13:15: [id number] 00 Safety can be left Safety Active Mehnaz alone for 11-04 Ugalde only short 13:15: [id number] periods 00 Elimination urinary Eliminatio Resolve 2018-02-26 Maria A incontinenc n d 12-31 12:00:00 Jaquan e 10:00: [id number] 00 Medication oral med Meds Resolve 2018-02-26 Maria A assistance d 12-31 12:00:00 Jaquan required 10:00: [id number] 00 Medication injectable Meds Resolve 2018-02-26 Maria A med d 12-31 12:00:00 Jaquan assistance 10:00: [id number] required 00 Elimination constipatio Eliminatio Resolve 2018-02-26 Maria A n n d 01-20 12:00:00 Jaquan 11:19: [id number] 00 Safety fire risk Safety Active Maria A present 6-16 Eliz 12:00: [id number] 00 Elimination urinary Eliminatio Resolve 2018-09-03 Maria A incontinenc n d 04-16 11:30:00 Eliz e 11:56: [id number] 00 Medication oral med Meds Resolve 2018-12-24 Maria A assistance d 04-16 13:24:00 [place] required 11:56: [id number] 00 Safety fall risk Safety Active Maria A factor 830 Eliz present 14:00: [id number] 00 Pain frequent Pain Mgmt Unknown 2017-10 Maria A pain 10-28 Eliz 13:00: [id number] 00 Endo/López anti-coagul Endo/López Resolve 2017-102019-06-24 Maria A ation d 1-08 13:34:00 Eliz therapy 11:30: [id number] 00 Elimination urinary Eliminatio Resolve 2017-102019-02-22 Maria A incontinenc n d 14:30:00 [place]faddin e 14:34: [id number] 00 Nutrition nutritional Nutrition Active Princess restriction 2-14 Alicia orlando 13:11: [id number] 00 Cardio chest pain Cardiovasc Resolve 2019-09-16 Maria A ular d 12-24 13:52:00 Eliz 13:24: [id number] 00 Elimination urinary Eliminatio Resolve 2019-08-19 Maria A incontinenc n d 04-23 13:50:00 [place] e 15:40: [id number] 00 Safety can be left Safety Unknown Maria A alone for 04-23 Eliz only short 15:40: [id number] periods 00 Pain frequent Pain Mgmt Resolve 2019-06-24 Kaye pain d 06-11 13:34:00 Sidney 09:20: [id number] 00 Elimination UTI within Eliminatio Resolve 2019-08-19 Kaye past 14 n d 06-11 13:50:00 Sidney days 09:20: [id number] 00 Elimination bowel Eliminatio Resolve 2019-08-19 Kaye incontinenc n d 06-11 13:50:00 Sidney e 09:20: [id number] 00 Neuro confusion Neuro/Emot Active Kaye present ion 06-11 Sidney 09:20: [id number] 00 Activity ADL Activity Unknown Kaye assistance 06-11 Sidney required 09:20: [id number] 00 Activity self-care Activity Active Kaye deficit 06-11 Sidney 09:20: [id number] 00 Medication oral med Meds Resolve 2019-06-24 Kaye assistance d 06-11 13:34:00 Sidney required 09:20: [id number] 00 Musculoskel transfer Musculoske Resolve 2019-09-16 Kaye etal assistance letal d 06-11 13:52:00 Sidney required 09:20: [id number] 00 Musculoskel requires Musculoske Resolve 2019-09-16 Kaye etal human letal d 8-16 13:52:00 Sidney assist to 09:20: [id number] leave home 00 Activity ADL Activity Active Elizabeth weber 07-08 Vince required 14:57: e 00 [id number] Medication potential Meds Active Princess clinically 07-22 Seager significant 14:30: [id number] medication 00 issue Elimination urinary Eliminatio Resolve 2018-102019-09-16 Maria A jadeenc n d 11-02 13:52:00 Tree [facility] 11:45: [facility] [id number] Allergies, Adverse Reactions, Alerts Allergy Name Allergy Status Severity Reaction(s) Onset Inactive Treating Comments Type Date Date Clinician fentanyl Base Active Unknown Rash, Hives, 2016-10 Angy Ingredient itchy 11-11 Primitivo [id number] Sulfa Allergen Active Unknown Facial 2016-10 Angy (Sulfonamide Group Redness/ -16 Primitivo Antibiotics) Flushing [id number] baclofen Base Active Moderate Unknown 2016-10 Angy Ingredient 1-16 Primitivo [id number] nitrofuranto Base Active Unknown Reaction 2016-10 Angy in Ingredient Unknown -16 Primitivo [id number] rosuvastatin Base Active Unknown extreme Princess Ingredient fatigue and 2-14 Seager CP [id number] Medications Ordered Filled Start Stop Current Ordering Indication Dosage Frequency Signature Comments Components Medication Medication Date Date Medication? Clinician (SIG) Name Name amLODIPine amLODIPine 2016-10- No Barrera /2 tab Unknown 5 mg tablet 5 mg tablet 11-03 ,Nabila gabapentin gabapentin 2016-10 No Barrera 600 mg Unknown 600 mg 600 mg 11-03 ,Nabila tablet tablet hydroxychlo hydroxychlo 2016-10 Barrera 200 mg Unknown roquine 200 roquine 200 11-03 ,Nabila mg tablet mg tablet Bystolic 5 Bystolic 5 2016-10 No Barrera 5 mg Unknown mg tablet mg tablet 11-03 ,Nabila PHENobarbit PHENobarbit 2016-10 Barrera 60 mg Unknown al 60 mg al 60 mg 11-03 ,Nabila tablet tablet oxyCODONE-a oxyCODONE-a 2016-10- Barrera 1 Unknown cetaminophe cetaminophe 11-03 ,Nabila tablet n 5 mg-325 n 5 mg-325 do not mg tablet mg tablet exceed 6 per day calcium calcium 2016-10- No Barrera 1 Unknown carbonate carbonate 11-03 ,Nabila tablet 600 mg 600 mg (1,500 (1,500 mg)-vitamin mg)-vitamin D3 400 unit D3 400 unit tablet tablet hydroxychlo hydroxychlo No Barrera 1 tab Unknown roquine 200 roquine 200 MD,Nabila mg tablet mg tablet Calcium 600 Calcium 600 No Barrera 1 tab Unknown + D(3) 600 + D(3) 600 MD,Nabila mg (1,500 mg (1,500 mg)-400 mg)-400 unit tablet unit tablet gabapentin gabapentin No Barrera 1 tab Unknown 600 mg 600 mg MD,Nabila tablet tablet Bystolic 5 Bystolic 5 No Barrera 1 tab Unknown mg tablet mg tablet ,Nabila cyclobenzap cyclobenzap No Barrera 1 tab Unknown rine 10 mg rine 10 mg ,Nabila tablet tablet baclofen 20 baclofen 20 No Barrera 1 tab Unknown mg tablet mg tablet MD,Nabila baclofen 10 baclofen 10 No Harleen 2 tabs Unknown mg tablet mg tablet MD,Dirk (20 mg) famotidine famotidine No Harleen 20 mg Unknown 20 mg 20 mg MD,Dirk tablet tablet Pepcid 20 Pepcid 20 2016-10- No Barrera 20mg Unknown mg tablet mg tablet 11-03 Nbaila BENSON amLODIPine amLODIPine 2016-10- No Barrera 1 tab Unknown 5 mg tablet 5 mg tablet 11-09 Wes BENSONa amLODIPine amLODIPine 2016-10- No Barrera 2.5 mg Unknown 5 mg tablet 5 mg tablet 11-09 ,Nabila hydroxychlo hydroxychlo 2016-10- No Barrera 200 mg Unknown roquine 200 roquine 200 11-03 ,Nabila mg tablet mg tablet oxyCODONE-a oxyCODONE-a 2016-10- No Barrera 5/325 Unknown cetaminophe cetaminophe 11-03 ,Nabila mg n 5 mg-325 n 5 mg-325 mg tablet mg tablet amLODIPine amLODIPine 2016-10- No Barrera 1 tab Unknown 5 mg [...] Unknown Dose 81 mg Dose 81 mg 0 08-16 ,Nabila tablet,jorge tablet,jorge yed release yed release amLODIPine amLODIPine 2017-10 No Barrera Unknown Unknown 10 mg 10 mg 0- MD,Nabila tablet tablet Tylenol 8 Tylenol 8 2017-10 No Barrera Unknown Unknown Hour 650 mg Hour 650 mg 0- MD,Nabila tablet,exte tablet,exte nded nded release release clindamycin clindamycin 2017-10- No Barrera Unknown Unknown HCl 300 mg HCl 300 mg 008-26 MD,Nabila capsule capsule Floranex 1 Floranex 1 2017-10- No Barrera Unknown Unknown million million 0- ,Nabila cell tablet cell tablet oxyCODONE-a oxyCODONE-a 2017-10 No Barrera Unknown Unknown cetaminophe cetaminophe 0- ,Nabila n 5 mg-325 n 5 mg-325 mg tablet mg tablet hydroxychlo hydroxychlo 2017-10- No Vi Unknown Unknown roquine 200 roquine 200 12-17 Jr,Alonzo mg tablet mg tablet J calcium calcium Barrera Unknown Unknown carbonate carbonate 1- ,Nabila 600 600 mg(1,500 mg(1,500 mg)-vitamin mg)-vitamin D3 800 unit D3 800 unit chewable chewable tablet tablet rosuvastati rosuvastati 2019- No [place] Unknown Unknown n 5 mg n 5 mg 11-13 Kerry tablet tablet hydroxychlo hydroxychlo 2017-10- No Vi Unknown Unknown roquine 200 roquine 200 12-17- Jr,Alonzo mg tablet mg tablet J Pepcid 20 Pepcid 20 2016-10 No Barrera Unknown Unknown mg tablet mg tablet 1- Nabila BENSON rosuvastati rosuvastati No Jose Maria Unknown Unknown n 5 mg n 5 mg - ,Kerry tablet tablet hydroxychlo hydroxychlo No Vi Unknown Unknown roquine 200 roquine 200 05-12 Jr,Alonzo mg tablet mg tablet J aspirin 325 aspirin 325 No Barrera Unknown Unknown mg tablet mg tablet 06-11 Nabila BENSON lisinopril lisinopril 2018- No Barrera Unknown Unknown 5 mg tablet 5 mg tablet 06-11 Nabila BENSON Privinil Privinil 2018-10 Yes Barrera Unknown Unknown 0-03 Nabila BENSON Vital Signs Vital Name Observation Time Observation Value Comments SYSTOLIC mm[Hg] 2019-09-16 18:08:58 114 mm[Hg] mm[Hg] Method: Sit SYSTOLIC mm[Hg] 2019-06-11 18:07:21 134 mm[Hg] mm[Hg] Method: Stand SYSTOLIC mm[Hg] 2019-08-19 18:08:30 106 mm[Hg] mm[Hg] Method: Lie DIASTOLIC mm[Hg] 2019-09-16 18:08:58 58 mm[Hg] mm[Hg] Method: Sit DIASTOLIC mm[Hg] 2019-06-11 18:07:21 76 mm[Hg] mm[Hg] Method: Stand DIASTOLIC mm[Hg] 2019-08-19 18:08:30 72 mm[Hg] mm[Hg] Method: Lie PULSE 2019-09-16 18:08:58 82 /min /min RESP RATE 2019-09-16 18:08:58 18 /min /min TEMP 2019-09-16 18:08:58 98.8 [degF] Procedures This patient has no known procedures. Results This patient has no known results.
--- OUTSIDE RECORDS SUMMARY | 2019-10-25 01:10 | XMS REPORT ---
:1960 Author Organization [facility] Care Team Providers Name Role Phone Unavailable Unavailable Unavailable Problems Condition Condition Condition Status Onset Resolution Last Treating Comments Name Details Category Date Date Treatment Clinician Date Systemic Systemic Diagnosis Active 2016-10 Jenelle lupus lupus 10-27 Wing erythematos erythematos [id number] us, us, unspecified unspecified Pain in Pain in Diagnosis Active 2016-10 Jenelle right arm right arm 10-27 Wing [id number] Pain in Pain in Diagnosis Active 2016-10 Jenelle right lower right lower 10-27 Wing leg leg [id number] Contracture Contracture Diagnosis Active Jenelle , right , 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 [id number] Urinary Urinary Diagnosis Active 2016-10 Jenelle tract tract 11-03 Wing infection, infection, [id number] site not site not specified specified Hypertensiv Hypertensiv Diagnosis Active 2016-10 Jenelle 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-09 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 stg 1-4/unsp 1-4/unsp chr kdny chr kdny 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, disease, 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) 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, disorder, [id number] single single episode, episode, unspecified unspecified Spinal Spinal Diagnosis Active Jenelle stenosis, stenosis, Wing site site [id number] unspecified unspecified 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, hip joint, [id number] bilateral bilateral Epilepsy, Epilepsy, Diagnosis Active Jenelle unsp, not unsp, not Wing intractable intractable [id number] , without , without status status epilepticus epilepticus 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 [id number] Pain frequent Pain Mgmt Resolve 2016-102019-04-23 Maria A pain d 11-03 15:40:00 Jaquan 14:09: [id number] 00 Nutrition nutritional Nutrition Resolve 2016-102017-09-30 Maria A restriction d 11-03 14:00:00 Jaquan s 14:09: [id number] 00 Elimination knowledge/s Eliminatio Resolve 2016-102017-09-30 Maria A kill n d 11-03 14:00:00 Jaquan deficit: pt 14:09: [id number] 00 Elimination urinary Eliminatio Resolve 2016-102017-09-30 Maria A incontinenc n d 11-03 14:00:00 Jaquan e 14:09: [id number] 00 Elimination UTI within Eliminatio Resolve 2016-102017-09-30 Maria A past 14 n d 11-03 14:00:00 Jaquan days 14:09: [id number] 00 Activity ADL Activity Unknown 2016-10 Quality assistance 11-03 Realtime required 14:09: 00 Safety risk for Safety Resolve 2016-102017-09-23 Maria A hospitaliza d 11-03 09:45:00 Jaquan tion 14:09: [id number] 00 Medication potential Meds Resolve 2016-102017-10-02 Maria A clinically d 11-03 13:30:00 Jaquan significant 14:09: [id number] medication 00 issue Medication oral med Meds Resolve 2016-102017-10-02 Maria A assistance d 11-03 13:30:00 Jaquan required 14:09: [id number] 00 Elimination recurring Eliminatio Resolve 2016-102017-09-30 Maria A UTI n d 11-10 14:00:00 Jaquan 14:00: [id number] 00 Safety risk for Safety Resolve 2016-102017-09-30 Maria A hospitaliza d 11-25 14:00:00 Jaquan tion 11:04: [id number] 00 Nutrition nutritional Nutrition Resolve 2016-102017-10-07 Maria A restriction d 12-03 11:06:00 Jaquan s 13:30: [id number] 00 Elimination urinary Eliminatio Resolve 2016-102017-10-02 Maria A incontinenc n d 12-03 13:30:00 Jaquan e 13:30: [id number] 00 Safety risk for Safety Resolve 2016-102017-10-07 Maria A hospitaliza d 12-03 11:06:00 Jaquan tion 13:30: [id number] 00 Elimination urinary Eliminatio Resolve 2016-102017-10-28 Maria A incontinenc n d 12-22 09:32:00 Jaquan e 10:14: [id number] 00 Elimination constipatio Eliminatio Resolve 2016-102017-10-28 Maria A n n d 12-22 09:32:00 Jaquan 10:14: [id number] 00 Pain frequent Pain Mgmt Unknown Maria A pain 10-28 Jaquan 09:32: [id number] 00 Activity ADL Activity Resolve 2018-02-10 Maria A assistance d 10-28 11:05:00 Jaquan required 09:32: [id number] 00 Elimination urinary Eliminatio Resolve 2017-12-17 Mehnaz incontinenc n d 11-04 11:35:00 Ugalde e 13:15: [id number] 00 Safety risk for Safety Active Mehnaz hospitaliza 11-04 Ugalde tion 13:15: [id number] 00 Safety can be left Safety Active Mehnaz alone for 11-04 Ugalde only short 13:15: [id number] periods 00 Elimination urinary Eliminatio Resolve 2018-02-26 Maria A incontinenc n d 12-31 12:00:00 Jaquan e 10:00: [id number] 00 Medication oral med Meds Resolve 2018-02-26 Maria A assistance d 12-31 12:00:00 Jaquan required 10:00: [id number] 00 Medication injectable Meds Resolve 2018-02-26 Maria A med d 12-31 12:00:00 Jaquan assistance 10:00: [id number] required 00 Elimination constipatio Eliminatio Resolve 2018-02-26 Maria A n n d 01-20 12:00:00 Jaquan 11:19: [id number] 00 Safety fire risk Safety Active Maria A present 04-11 Eliz 12:00: [id number] 00 Elimination urinary Eliminatio Resolve 2018-09-03 Maria A incontinenc n d 04-16 11:30:00 Royal e 11:56: [id number] 00 Medication oral med Meds Resolve 2018-12-24 Maria A assistance d 04-16 13:24:00 Eliz required 11:56: [id number] 00 Safety fall risk Safety Active Maria A factor 06-25 Royal present 14:00: [id number] 00 Pain frequent Pain Mgmt Unknown 2017-10 Maria A pain 10-28 Royal 13:00: [id number] 00 Endo/López anti-coagul Endo/Lóepz Resolve 2017-102019-06-24 Mari Aa ation d 11-03 13:34:00 Royal therapy 11:30: [id number] 00 Elimination urinary Eliminatio Resolve 2017-102019-02-22 Maria A incontinenc n d 14:30:00 Eliz e 14:34: [id number] 00 Nutrition nutritional Nutrition Active Princess restriction 2-14 Seager s 13:11: [id number] 00 Cardio chest pain Cardiovasc Resolve 2019-09-16 Maria A ular d 12-24 13:52:00 Eliz 13:24: [id number] 00 Elimination urinary Eliminatio Resolve 2019-08-19 Maria A incontinenc n d 04-23 13:50:00 Eliz e 15:40: [id number] 00 Safety can be left Safety Unknown Maria A alone for 04-23 Eliz only short 15:40: [id number] periods 00 Pain frequent Pain Mgmt Resolve 2019-06-24 Kaye pain d 16 13:34:00 [place] 09:20: [id number] 00 Elimination UTI within Eliminatio Resolve 2019-08-19 Kaye past 14 n d 06-11 13:50:00 [place] days 09:20: [id number] 00 Elimination bowel Eliminatio Resolve 2019-08-19 Kaye incontinenc n d 06-11 13:50:00 [place] e 09:20: [id number] 00 Neuro confusion Neuro/Emot Active Kaye present ion 06-11 [place] 09:20: [id number] 00 Activity ADL Activity Unknown Kaye assistance 06-11 [place] required 09:20: [id number] 00 Activity self-care Activity Active Kaye deficit 06-11 [place] 09:20: [id number] 00 Medication oral med Meds Resolve 2019-06-24 Kaye assistance d 06-11 13:34:00 [place] required 09:20: [id number] 00 Musculoskel transfer Musculoske Resolve 2019-09-16 Kaye etal assistance letal d 06-11 13:52:00 [place] required 09:20: [id number] 00 Musculoskel requires Musculoske Resolve 2019-09-16 Kaye etal human letal d 06-11 13:52:00 [place] assist to 09:20: [id number] leave home 00 Activity ADL Activity Active Elizabeth A. assistance 07-08 [facility] required 14:57: e 00 [id number] Medication potential Meds Active Princess clinically 07-22 Seager significant 14:30: [id number] medication 00 issue Elimination urinary Eliminatio Resolve 2018-102019-09-16 Maria A incontinenc n d 11-02 13:52:00 Tree e 11:45: [employer] 00 [id number] Elimination urinary Eliminatio Active 2018-10 Maria A incontinenc n 12-01 Tree e 10:32: [employer] 00 [id number] Allergies, Adverse Reactions, Alerts Allergy Name Allergy Status Severity Reaction(s) Onset Inactive Treating Comments Type Date Date Clinician fentanyl Base Active Unknown Rash, Hives, 2016-10 Angy Ingredient itchy -16 Primitivo [id number] Sulfa Allergen Active Unknown Facial 2016-10 Angy (Sulfonamide Group Redness/ -16 Primitivo Antibiotics) Flushing [id number] baclofen Base Active Moderate Unknown 2016-10 Angy Ingredient 1-16 Primitivo [id number] nitrofuranto Base Active Unknown Reaction 2016-10 Angy in Ingredient Unknown 11-11 Primitivo [id number] rosuvastatin Base Active Unknown extreme Princess Ingredient fatigue and 2- Seager CP [id number] Medications Ordered Filled Start Stop Current Ordering [...] No Barrera 1 Unknown carbonate carbonate 11-03 ,Anbila tablet 600 mg 600 mg (1,500 (1,500 [...] chewable tablet tablet rosuvastati rosuvastati 2018- No [place] Unknown Unknown n 5 mg n 5 [...] Observation Time Observation Value Comments SYSTOLIC mm[Hg] 2019-10-06 18:09:18 122 mm[Hg] mm[Hg] Method: Sit SYSTOLIC mm[Hg] 2019-06-11 18:07:21 134 mm[Hg] mm[Hg] Method: Stand SYSTOLIC mm[Hg] 2019-08-19 18:08:30 106 mm[Hg] mm[Hg] Method: Lie DIASTOLIC mm[Hg] 2019-10-06 18:09:18 64 mm[Hg] mm[Hg] Method: Sit DIASTOLIC mm[Hg] 2019-06-11 18:07:21 76 mm[Hg] mm[Hg] Method: Stand DIASTOLIC mm[Hg] 2019-08-19 18:08:30 72 mm[Hg] mm[Hg] Method: Lie PULSE 2019-10-06 18:09:18 72 /min /min RESP RATE 2019-10-06 18:09:18 16 /min /min TEMP 2019-10-06 18:09:18 98.1 [degF] Procedures This patient has no known procedures. Results This patient has no known results.
--- OUTSIDE RECORDS SUMMARY | 2019-10-25 01:10 | XMS REPORT | Continuity of Care Document ---
:1960 External Reference #:[id number] Author Name Kirill Wright M.D. Address [address] [place] [address] Care Team Providers Name Role Phone Nabila Barrera M.D. 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 Bystolic Barrera, Nabila 5mg Tablets M.D. Calcium 600 Unknown 600mg Tablets Famotidine Take 1 Tablet Unknown 20mg Tablets By Mouth AT Bedtime Lisinopril Take 1 Tablet Unknown 5mg Tablets By Mouth Every Day Phenobarbital Cotton, 64.8mg Tablets Nereida M.D. Artificial Tears as needed Unknown 0.2-0.2-1% Solution History Medications Ciprofloxacin HCL instill one drop 5ml Kirill Wright, 07/07/2019 - 0.3% in the right eye M.D. 08/08/2019 Solution three times a day, start the day before surgery Ketorolac Tromethamine use one drop in 10ml Kirill Elizaldedanieli, 07/07/2019 - 0.5% the right eye M.D. 08/08/2019 Solution three times a day, start the day before surgery Prednisolone Acetate 1 drops right eye 10ml Kirill Kyle, 07/07/2019 - 1% three times a day. M.D. 08/08/2019 Suspension taper as directed Immunizations Description No Information Available Vital Signs Description No Information Available Results Description No Information Available Procedures Date Code Description Status 07/26/2019 77859 Extracapsular Cataract Extraction W/Intraocular Lens Completed 07/19/2019 34736 Extracapsular Cataract Extraction W/Intraocular Lens Completed 07/07/2019 29184 Ophthalmic Biometry Completed 07/07/2019 23518 Ophthalmic Biometry Completed 07/07/2019 89970 Est Patient Intermediate Exam Completed 06/16/2019 38462 Scanning Computerized Opthalmic Diagnostic Posterior Seg Completed Retina 06/16/2019 14858 Visual Field Exam Extended Completed 06/16/2019 65114 Est Patient Comprehensive Exam Completed Medical Devices Description No Information Available Encounters Description No Information Available Assessments Date Code Description Provider 09/22/2019 Z76.0 Encounter for issue of repeat prescription Kirill Wright M.D. 09/22/2019 Z96.1 Presence of intraocular lens Kirill Wright M.D. 08/10/2019 Z96.1 Presence of intraocular lens Kirill Wright M.D. 07/27/2019 Z96.1 Presence of intraocular lens Kirill Wright M.D. 07/26/2019 H25.12 Age-related nuclear cataract, left eye Kirill Wright M.D. 07/20/2019 H25.12 Age-related nuclear cataract, left eye Kirill Wright M.D. 07/20/2019 Z79.899 Other intermediate (current) drug therapy Kirill Wright M.D. 07/20/2019 M32.9 Systemic lupus erythematosus, unspecified Kirill Wright M.D. 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 07/19/2019 H25.11 Age-related nuclear cataract, right eye Kirill Wright M.D. 07/07/2019 H25.11 Age-related nuclear cataract, right eye Kirill Wright M.D. 07/07/2019 Z79.899 Other intermediate (current) drug therapy Kirill Wright M.D. 07/07/2019 M32.9 Systemic lupus erythematosus, unspecified Kirill Wright M.D. 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 06/16/2019 M32.9 Systemic lupus erythematosus, unspecified Kirill Wright M.D. 06/16/2019 H25.13 Age-related nuclear cataract, bilateral Kirill Wright M.D. 06/16/2019 H43.812 Vitreous degeneration, left eye Kirill Wrihgt M.D. 06/16/2019 H35.3131 Nonexudative age-related macular Kirill Wright M.D. degeneration, bilateral, early dry stage Plan of Treatment 09/22/2019 - Kirill Wright M.D.Z76.0 Encounter for issue of repeat prescriptionComments:Smoking can increase the risk of developing or worsening any eye related disease, as well as affect your overall health. If you are a smoker, we strongly recommend that you quit.If you are not a smoker, we strongly recommend that you do not start.Z96.1 Presence of intraocular lensComments:The artificial lens implants in both eyes appear to be stable at this time.Follow up:1 Year Follow Up DFE You can expect to have your eyes [...] free to call our office at . Functional Status Description No Information Available Mental Status Description No Information Available Referrals Description No Information Available
--- OUTSIDE RECORDS SUMMARY | 2019-10-25 01:10 | XMS REPORT ---
:1960 Author Organization [facility] Care Team Providers Name Role Phone Unavailable Unavailable Unavailable Problems Condition Condition Condition Status Onset Resolution Last Treating Comments Name Details Category Date Date Treatment Clinician Date Systemic Systemic Diagnosis Active 2016-10 Jenelle lupus lupus 10-27 Wing erythematos erythematos [id number] us, us, unspecified unspecified Pain in Pain in Diagnosis Active 2016-10 Jenelle right arm right arm 10-27 Wing [id number] Pain in Pain in Diagnosis Active 2016-10 Jenelle right lower right lower 10-27 Wing leg leg [id number] Contracture Contracture Diagnosis Active Jenelle , right , right 10-27 Maciej elbow elbow [id number] Urinary Urinary Diagnosis Active 2016-10 Jenelle tract tract 11-03 Maciej infection, infection, [id number] site not site not specified specified I12.9 I12.9 Diagnosis Active 2016-10 Jenelle 11-09 Wing [id number] Pain frequent Pain Mgmt Resolve 2016-102019-04-23 Maria A pain d 11-03 15:40:00 Jaquan 14:09: [id number] 00 Nutrition nutritional Nutrition Resolve 2016-102017-09-30 Maria A restriction d 11-03 14:00:00 Jaquan s 14:09: [id number] 00 Elimination knowledge/s Eliminatio Resolve 2016-102017-09-30 Maria A kill n d 11-03 14:00:00 Jaquan deficit: pt 14:09: [id number] 00 Elimination urinary Eliminatio Resolve 2016-102017-09-30 Maria A incontinenc n d 11-03 14:00:00 Jaquan e 14:09: [id number] 00 Elimination UTI within Eliminatio Resolve 2016-102017-09-30 Maria A past 14 n d 11-03 14:00:00 Jaquan days 14:09: [id number] 00 Activity ADL Activity Unknown 2016-10 Quality assistance 11-03 Realtime required 14:09: 00 Safety risk for Safety Resolve 2016-102017-09-23 Maria Aelva pendletoniza d 11-03 09:45:00 Jaquan tion 14:09: [id number] 00 Medication potential Meds Resolve 2016-102017-10-02 Maria A clinically d 11-03 13:30:00 Jaquan significant 14:09: [id number] medication 00 issue Medication oral med Meds Resolve 2016-102017-10-02 Maria A assistance d 11-03 13:30:00 Jaquan required 14:09: [id number] 00 Elimination recurring Eliminatio Resolve 2016-102017-09-30 Maria A UTI n d 11-10 14:00:00 Jaquan 14:00: [id number] 00 Safety risk for Safety Resolve 2016-102017-09-30 Maria A [facility] hospital[facility] d 11-25 14:00:00 Jaquan tion 11:04: [id number] 00 Nutrition nutritional Nutrition Resolve 2016-102017-10-07 Maria A restriction d 12-03 11:06:00 Jaquan s 13:30: [id number] 00 Elimination urinary Eliminatio Resolve 2016-102017-10-02 Maria A incontinenc n d 12-03 13:30:00 Jaquan e 13:30: [id number] 00 Safety risk for Safety Resolve 2016-102017-10-07 Maria A hospitaliza d 12-03 11:06:00 Jaquan tion 13:30: [id number] 00 Elimination urinary Eliminatio Resolve 2016-102017-10-28 Maria A incontinenc n d 12-22 09:32:00 Jaquan e 10:14: [id number] 00 Elimination constipatio Eliminatio Resolve 2016-102017-10-28 Maria A n n d 12-22 09:32:00 Jaquan 10:14: [id number] 00 Pain frequent Pain Mgmt Unknown Maria A pain 10-28 Jaquan 09:32: [id number] 00 Activity ADL Activity Resolve 2018-02-10 Maria A assistance d 10-28 11:05:00 Jaquan required 09:32: [id number] 00 Elimination urinary Eliminatio Resolve 2017-12-17 Mehnaz incontinenc n d 11-04 11:35:00 [place] e 13:15: [id number] 00 Safety risk for Safety Active Mehnaz hospitaliza 11-04 Ugalde tion 13:15: [id number] 00 Safety can be left Safety Active Mehnaz alone for 11-04 Ugalde only short 13:15: [id number] periods 00 Elimination urinary Eliminatio Resolve 2018-02-26 Maria A incontinenc n d 12-31 12:00:00 Jaquan e 10:00: [id number] 00 Medication oral med Meds Resolve 2018-02-26 Maria A assistance d 12-31 12:00:00 Jaquan required 10:00: [id number] 00 Medication injectable Meds Resolve 2018-02-26 Maria A med d 12-31 12:00:00 Jaquan assistance 10:00: [id number] required 00 Elimination constipatio Eliminatio Resolve 2018-02-26 Maria A n n d 01-20 12:00:00 Jaquan 11:19: [id number] 00 Safety fire risk Safety Active Maria A present 6-16 Eliz 12:00: [id number] 00 Elimination urinary Eliminatio Resolve 2018-09-03 Maria A incontinenc n d 04-16 11:30:00 Eliz e 11:56: [id number] 00 Medication oral med Meds Resolve 2018-12-24 Maria A assistance d 04-16 13:24:00 [place] required 11:56: [id number] 00 Safety fall risk Safety Active Maria A factor 830 Eliz present 14:00: [id number] 00 Pain frequent Pain Mgmt Unknown 2017-10 Maria A pain 10-28 Eliz 13:00: [id number] 00 Endo/López anti-coagul Endo/López Resolve 2017-102019-06-24 Maria A ation d 1-08 13:34:00 Eliz therapy 11:30: [id number] 00 Elimination urinary Eliminatio Resolve 2017-102019-02-22 Maria A incontinenc n d 14:30:00 [place] e 14:34: [id number] 00 Nutrition nutritional Nutrition Active Princess restriction 2-14 Alicia [place] 13:11: [id number] 00 Cardio chest pain Cardiovasc Resolve 2019-09-16 Maria A ular d 12-24 13:52:00 Eliz 13:24: [id number] 00 Elimination urinary Eliminatio Resolve 2019-08-19 Maria A incontinenc n d 04-23 13:50:00 [place] e 15:40: [id number] 00 Safety can be left Safety Unknown Maria A alone for 04-23 Eliz only short 15:40: [id number] periods 00 Pain frequent Pain Mgmt Resolve 2019-06-24 Kaye pain d 06-11 13:34:00 [place] 09:20: [id number] 00 Elimination UTI within Eliminatio Resolve 2019-08-19 Kaye past 14 n d 06-11 13:50:00 [place] days 09:20: [id number] 00 Elimination bowel Eliminatio Resolve 2019-08-19 Kaye incontinenc n d 06-11 13:50:00 [place] e 09:20: [id number] 00 Neuro confusion Neuro/Emot Active Kaye present ion 06-11 [place] 09:20: [id number] 00 Activity ADL Activity Unknown Kaye assistance 06-11 [place] required 09:20: [id number] 00 Activity self-care Activity Active Kaye deficit 06-11 [place] 09:20: [id number] 00 Medication oral med Meds Resolve 2019-06-24 Kaye assistance d 06-11 13:34:00 [place] required 09:20: [id number] 00 Musculoskel transfer Musculoske Resolve 2019-09-16 Kaye etal assistance letal d 06-11 13:52:00 [place] required 09:20: [id number] 00 Musculoskel requires Musculoske Resolve 2019-09-16 Kaye etal human letal d 8-16 13:52:00 [place] assist to 09:20: [id number] leave home 00 Activity ADL Activity Active Elizabeth weber 07-08 Vince required 14:57: e 00 [id number] Medication potential Meds Active Princess clinically 07-22 [place] significant 14:30: [id number] medication 00 issue Elimination urinary Eliminatio Resolve 2018-102019-09-16 Maria A jadeenc n d 11-02 13:52:00 [place] [facility] 11:45: [facility] 00 [id number] Allergies, Adverse Reactions, Alerts Allergy Name Allergy Status Severity Reaction(s) Onset Inactive Treating Comments Type Date Date Clinician fentanyl Base Active Unknown Rash, Hives, 2016-10 Angy Ingredient itchy 11-11 Primitivo [id number] Sulfa Allergen Active Unknown Facial 2016-10 Angy (Sulfonamide Group Redness/ -16 Primitivo Antibiotics) Flushing [id number] baclofen Base Active Moderate Unknown 2016-10 Angy Ingredient 1-16 Primitivo [id number] nitrofuranto Base Active Unknown Reaction 2016-10 Angy in Ingredient Unknown -16 Primitivo [id number] rosuvastatin Base Active Unknown extreme Princess Ingredient fatigue and 2-14 Seager CP [id number] Medications Ordered Filled Start Stop Current Ordering [...] 20mg Unknown mg tablet mg tablet 11-03 Nabila BENSON amLODIPine amLODIPine 2016-10- No Barrera 1 [...] chewable tablet tablet rosuvastati rosuvastati 2019- No [place] Unknown Unknown n 5 mg n 5 [...]
--- OUTSIDE RECORDS SUMMARY | 2019-10-25 01:10 | XMS REPORT | Continuity of Care Document ---
:1960 External Reference #:[id number] Author Name Jennifer Zimmer N.P. (transmitted by agent of provider Chelly Sow) Address [address], [place] [address] Care Team Providers Name Role Phone Nabila Barrera MD - Internal Care Team Information Size Changer Medicine Jamaal Wynn MD - Internal Medicine Care Team Information Size Changer Mark Thompson MD - Dermatology Care Team Information Size Changer [phone] Cisco Mcfarland - Nurse Care Team Information Size Changer [phone] Practitioner Alonzo Lebron MD - Rheumatology Care Team Information Size Changer [phone] Problems Active Problems Provider Date Systemic lupus erythematosus Nabila Barrera M.D. Onset: 05/09/2012 Medications Prison (Current) Use Encounter Emile Hawkins M.D. 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 Onset: 2017 effect of cerebrovascular disease Chronic kidney disease stage 3 Bryce Fan II, M.D. Onset: 04/11/2018 Gastroesophageal reflux disease Bryce Fan II, M.D. Onset: 04/11/2018 Cellulitis of right lower limb Jayden Carter MD Onset: 04/12/2018 Epilepsy Caroline Reyes D.O. Onset: 04/14/2018 Note: phenobarb level 26.27 Aug 2017; in [facility] database [address] García most recent May 2014 with no neurology visits after that Headache Jayden Carter MD Onset: 08/13/2018 Pain in right lower limb Jayden Carter MD Onset: 08/13/2018 Abnormal results of cardiovascular Kerry Moise M.D. Onset: 11/10/2018 function studies Social History Type Date Description Comments Sex Unknown Tobacco Use Start: Unknown Former Cigarette End: Unknown Smoker Smoking Status Reviewed: 10/08/19 Former Cigarette Smoker ETOH Use Denies alcohol [...] Medications SIG Qnty Indications Ordering Date Provider Triamcinolone Acetonide apply twice a 30gm R21 Jennifer Zimmer, 10/08/2019 0.1% day until N.P. Cream clear Prinivil 1/2 tab every 90tabs Nabila Barrera, 06/10/2019 5mg Tablets day M.D. Aspirin 1 by mouth 28tabs Other Ordering 06/07/[address] every day Provider Hydroxychloroquine Sulfate take 1 tablet 180tabs Z79.899 Cisco Mcfarland, 200mg by mouth CORPORATE SALES REPRESENTATIVE Tablets twice a day M32.14 M32.9 Rosuvastatin Calcium 1 tab by mouth 45tabs Niurka Gonzalez NP 01/19/2019 5mg every other day at Tablets bedtime Amlodipine Besylate Take 1 Tablet By 90tabs I10 Nabila Barrera, 09/16/2018 10mg Mouth Every Day M.D. Tablets Floranex Every Day 15tabs Unknown 08/14/2018 Tablets Calcium 500+D3 1 tab by mouth 180tabs M85.89 Cisco Mcfarland, 12/18/2017 [id number] twice a day CORPORATE SALES REPRESENTATIVE Tablets Phenobarbital 1 tab by mouth 60tabs Nabiladavid Barrera, 05/09/2012 64.8mg Tablets twice a day M.D. Gabapentin take 1 tablet by 180tabs Nabiladavid Barrera, 600mg Tablets mouth two times M.D. daily Bystolic Take 1 Tablet By 90tabs Nabila Barrera, 5mg Tablets Mouth Every Day M.D. Pepcid Take 1 Tablet By 90tabs Nabiladavid Barrera, 20mg Tablets Mouth Every Day M.D. Acetaminophen ER 1 by mouth twice a Unknown 650mg day as needed Tablets ER History Medications Metamucil once a day 60caps K59.03 Nabialtaylor Barrera, 08/26/2019 - 0.52gm Capsules M.D. 10/07/2019 Ciprofloxacin HCL Take 1 Tablet Unknown 08/22/2019 - 500mg By Mouth Two 10/07/2019 Tablets Times Daily For 3 Days Heparin Lock Flush 0600,1800 Unknown 06/04/2019 - 10/07/2019 10Unit/ML Solution Immunizations CPT Code Status Date Vaccine Reaction Lot # [id number] Given 08/26/2019 Influenza Virus Vaccine, [id number] Quadrivalent ([id number]), Derived From Cell 48395 Given 07/15/2019 Pneumococcal Conjugate Vaccine [id number] Valent For Intramuscular Use 55626 Given 08/27/2018 Influenza Virus Vaccine, Pt. tolerated well. [id number] Quadrivalent, Split, Preservative Free 84308 Given 07/01/2018 Pneumonia Vaccine [id number] 64276 Given 07/17/2017 Influenza Virus Vaccine, Quadrivalent, Split, Preservative Free 81957 Given 07/15/2016 Influenza Virus Vaccine, [id number] Quadrivalent, Split, Preservative Free 62808 Given 08/03/2015 Influenza Virus Vaccine, No reaction noted [id number] Quadrivalent, Split, Preservative Free 52645 Given 06/05/2015 Tdap - Tetanus/Diptheria/Acellular Pertussis 30626 Given 07/21/2014 Influenza Virus Vaccine, [id number] Quadrivalent, Split, Preservative Free [id number] Refused 08/12/2013 Tdap - Tetanus/Diptheria/Acellular Pertussis [id number] Refused 08/12/2013 Flu Vaccine Split Virus Preservative Free For Indiv [id number] Older Vital Signs Date Vital Result Comment 10/08/2019 2:08pm Height 63 inches 5'3" Weight 148.50 lb Heart Rate 72 /min BP Systolic Sitting 110 mmHg BP Diastolic Sitting 78 mmHg Body Temperature 98.2 F O2 % BldC Oximetry 99 % BMI (Body Mass Index) 26.3 kg/m2 08/26/2019 10:13am Height 63 inches 5'3" Weight 149.00 lb Heart Rate 74 /min BP Systolic Sitting 103 mmHg BP Diastolic Sitting 72 mmHg O2 % BldC Oximetry 99 % BMI (Body Mass Index) 26.4 kg/m2 Results Test Acquired Date Facility Test Result H/L Range Note CBC Auto 08/19/2019 [facility] White Blood 7.4 10^3/uL Normal 3.5-10.[address] [place] [address] [phone] Red Blood Count 3.55 10^6/uL Low 3.70-4.87 Hemoglobin 9.9 g/dL Low 12.0-16.0 Hematocrit 30 % Low 35-47 Mean Corpuscular Volume 85 fL Normal 80-97 Mean Corpuscular Hemoglobin 28 pg Normal 27-31 Mean Corpuscular HGB Conc 33 g/dL Normal 31-36 Red Cell Distribution Width 15 % Normal 10-15 Platelet Count 210 10^3/uL Normal 150-450 Mean Platelet Volume 7.6 fL Normal 7.4-10.4 Abs Neutrophils 6.1 10^3/uL Normal 1.5-7.7 Abs Lymphocytes 0.9 10^3/uL Low 1.0-4.8 Abs Monocytes 0.3 10^3/uL Normal 0-0.8 Abs Eosinophils 0.1 10^3/uL Normal 0-0.6 Abs Basophils 0.0 10^3/uL Normal 0-0.2 Abs Nucleated RBC 0.0 10^3/uL Granulocyte % 82.3 % Lymphocyte % 12.4 % Monocyte % 3.6 % Eosinophil % 1.2 % Basophil % 0.5 % Nucleated Red Blood Cells % 0.0 Comp Metabolic 08/19/2019 [facility] Sodium 140 mmol/L Normal 135-[address] [place] [address] [phone] Chloride 107 mmol/L Normal 101-111 Co2 Carbon Dioxide 27 mmol/L Normal 22-32 Glucose 70 mg/dL Normal 70-100 Blood Urea Nitrogen 23 mg/dL Normal 6-24 Creatinine 1.47 mg/dL High 0.51-0.95 BUN/Creatinine Ratio 15.6 Normal 8-20 Calcium 9.0 mg/dL Normal 8.6-10.3 Total Protein 7.9 g/dL Normal 6.4-8.9 Albumin 3.8 g/dL Normal 3.2-5.2 Globulin 4.1 g/dL High 2-4 Albumin/Globulin Ratio 0.9 Low 1-3 Total Bilirubin 0.20 mg/dL Normal 0.2-1.0 Alkaline Phosphatase 55 U/L Normal 34-104 Alt 15 U/L Normal 7-52 Egfr Non- 36.4 >60 Egfr 44.0 >60 1 Potassium 4.2 mmol/L Normal 3.5-5.0 Anion Gap 6 mmol/L Normal 2-11 Ast 24 U/L Normal 13-39 Urinalysis Profile 08/19/2019 [facility] Urine Color Yellow [address] [place] [address] [phone] Urine Appearance Cloudy Urine Specific [place] 1.011 Normal 1.010-1.030 Urine pH 7.0 Normal 5-9 Urine Urobilinogen Negative Negative Urine Ketones Negative Negative Urine Protein 2+(100 mg/dL) Abnormal Negative Urine Leukocytes 3+ Abnormal Negative Urine Blood Negative Negative Urine Nitrite Negative Negative Urine Bilirubin Negative Negative Urine Glucose Negative Negative Urine White Blood Cell 3+(>20/hpf) Abnormal Absent Urine Red Blood Cell 2+(6-10/hpf) Abnormal Absent Urine Bacteria 1+ Abnormal Absent Urine Squamous Epithelial Cell Present Abnormal Absent Urine Yeast Present Abnormal Absent Urine Culture And 08/19/2019 [facility] Urine Culture SEE RESULT [address] [place] [address] [phone] Urinalysis Profile 06/02/2019 [facility] Urine Color Yellow [address] [place] [address] [phone] Urine Appearance Cloudy Urine Specific [place] 1.011 Normal 1.010-1.030 Urine pH 7.0 Normal [...] Present Abnormal Absent Urine Culture And 06/02/2019 [facility] Urine SEE RESULT [address] [place] [address] [phone] Comp Metabolic 06/02/2019 [facility] Sodium 139 mmol/L Normal 135-[address] [place] [address] [phone] Potassium 4.2 mmol/L Normal 3.5-5.0 Chloride 105 [...] Egfr Non- 34.0 >60 Egfr 41.1 >60 4 Laboratory test 06/02/2019 [facility] Troponin-I 0.00 <0.04 [address] (TnI) ng/[place] [address] [phone] CBC Auto Diff 06/02/2019 [facility] White Blood 3.9 Normal 3.5 -10.[address] Count 10^3/[place] [address] [phone] Red Blood Count 3.70 10^6/uL Normal 3.70-4.87 [...] Red Blood Cells % 0.1 Inr/Protime 06/02/2019 [facility] Inr 0.91 Normal 0.82-1.[address] [place] [address] [phone] Laboratory 06/02/2019 [facility] Partial Thrombo 36.5 Normal 26.0-38.0 test finding [address] [place] [address] [phone] Lipid Profile 06/02/2019 [facility] Triglycerides 306 mg/dL 7 (Trig/Chol/HDL [address] ) [place] [address] [phone] Cholesterol 164 mg/dL 8 HDL Cholesterol 65.0 mg/dL 9 LDL Cholesterol 38 mg/dL 10 Urinalysis Profile 05/20/2019 [facility] Urine Color Yellow [address] [place] [address] [phone] Urine Appearance Turbid Urine Specific [place] 1.011 Normal 1.010-1.030 Urine pH 8.0 Normal [...] Urine Squamous Epithelial Cell Present Abnormal Absent Iron & Iron Binding 05/20/2019 [facility] Iron 53 g/dL Normal 50-[address] [place] [address] [phone] Unsaturated Iron Binding < 279 g/dL Total Iron Binding Capacity 294 g/dL Normal 250-450 % Iron Saturation 18 % Normal 15-55 Laboratory test 05/20/2019 [facility] Ferritin 31.4 ng/mL Normal 11-[address] [place] [address] [phone] Transferrin 210 mg/dL Normal 203-362 Urine Culture And 05/20/2019 [facility] Urine Culture SEE RESULT [address] [place] [address] [phone] Laboratory test 05/20/2019 [facility] C Reactive 6.73 mg/L Normal <8.[address] Protein 1 [place] [address] [phone] Anti Double Stranded Dna AB <12.3 IU/mL 13 Erythrocyte Sed Rate 47 mm/Hr High 0-29 Comp Metabolic 05/20/2019 [facility] Sodium 137 mmol/L Normal 135-[address] [place] [address] [phone] Potassium 4.6 mmol/L Normal 3.5-5.0 Chloride 105 [...] Egfr Non- 32.8 >60 Egfr 39.6 >60 14 CBC Auto 05/20/2019 [facility] White Blood 3.3 10^3/uL Low 3.5 -10.[address] [place] [address] [phone] Red Blood Count 3.40 10^6/uL Low 3.70-4.87 [...] % Nucleated Red Blood Cells % 0.0 CBC Auto 04/26/2019 [facility] White Blood 4.1 10^3/uL Normal 3.5-10.[address] [place] [address] [phone] Red Blood Count 3.29 10^6/uL Low 3.70-4.87 [...] % Nucleated Red Blood Cells % 0.5 Inr/Protime 04/26/2019 [facility] Inr 0.86 Normal 0.82-1.[address] [place] [address] [phone] Laboratory test 04/26/2019 [facility] Partial 34.5 Normal 26.0 -38.[address] [address] Time PTT [phone] Comp Metabolic 04/26/2019 [facility] Sodium 137 mmol/L Normal 135-145 Panel [address] [place] [address] [phone] Potassium 4.3 mmol/L Normal 3.5-5.0 Chloride 106 [...] Egfr Non- 40.3 >60 Egfr 48.7 >60 16 1 Because ethnic data is not always readily [...] 15-29 5 Kidney failure <15 (or dialysis) 2 SEE RESULT BELOW Name: THAIS RAO : [address]: Magen Christensen MD Acct: [id number] Unit: [id number] AGE: 59 Location: ED Re08/19/19 SEX: F Status: DEP ER SPEC: [id number] GENET: 08/19/[address]: Magen Christensen MD REQ: [id number] RECD: 08/19/19 STATUS: MATTHEW MARTINEZ DR: Nabila Barrera MD _ SOURCE: URINE SPDESC: ORDERED: Urine Culture Procedure Result Reported Site Urine Culture Final 08/21/19 0938 ML Organism 1 CITROBACTER BRAAKII [place] Count 50-75,000 (Many) CFU/ML Organism 2 STREP GROUP B [place] Count 10-25,000 (Moderate) CFU/ML Susceptibility testing of penicillins and other B-lactams approved by FDA for treatment of Streptococcus pyogenes (Group A Strep) and Streptococcus agalactiae (Group B Strep) is not necessary for clinical purposes and need not be done routinely, since as with vancomycin, resistant strains have not been recognized. (CLSI Q118-X46;p.66) Positive isolates will be saved for one week. Please call the Microbiology Laboratory if further susceptibility testing is needed. 1. CITROBACTER BRAAKII M.I.C. RX --------- ------ Cefazolin >=64 R Cefepime <=1 S Ceftriaxone <=1 S Ciprofloxacin <=0.25 S Gentamicin <=1 S Levofloxacin <=0.12 S Meropenem <=0.25 S Nitrofurantoin <=16 S Tetracycline <=1 S CONTINUED ON NEXT PAGE DEPARTMENT OF PATHOLOGY, [address] [place] [address] Edwin Chanel M.D. Director [facility] # [id number] Specimen: [id number] Collected: 08/19/19 Received: 08/19/19 (Continued) Procedure Result Reported Site Urine Culture Final (continued) 08/21/19937 1. CITROBACTER BRAAKII (continued) Julienne RX --------- ------ Pipercillin/Tazobactam <=4 S Trimethoprim/Sulfamethoxazole <=20 S Amoxicillin/Clavulanic Acid R Aztreonam <=1 S Contact the Microbiology Department for any additional antibiotic reporting. * ML - Main Lab . END OF REPORT DEPARTMENT OF PATHOLOGY, [address] [place] [address] Edwin Chanel M.D. Director [facility] # [id number] 3 SEE RESULT BELOW Name: THAIS RAO DOB: [address]: Patricia Larsen MD Acct: [id number] Unit: [id number] AGE: 59 Location: [place] [address] Re06/02/19 SEX: F Status: ADM Dorothy SPEC: [id number] GENET: 06/02/[address]: Gina Kyle MD REQ: [id number] RECD: 06/02/19 STATUS: MATTHEW MARTINEZ DR: Nabila Barrera MD _ SOURCE: URINE SPDESC: ORDERED: Urine Culture Procedure Result Reported Site Urine Culture Final 06/04/19- 1432 ML Organism 1 ESCHERICHIA COLI [place] Count >100,000 (Many) CFU/ML 1. ESCHERICHIA COLI [...] . END OF REPORT DEPARTMENT OF PATHOLOGY, [address] [place] [address] Edwin Chanel M.D. Director [facility] # [id number] 4 Because ethnic data is not always readily [...] 15-29 5 Kidney failure <15 (or dialysis) 5 Troponin-I testing on Plasma Separator Tubes (PST) has a known false positive rate of 0.20-0.40%. All positive troponins reflex immediately to secondary confirmatory testing. Using the [employer] DxI 800 Access Immunoassay systems, the 99th percentile upper reference limit was demonstrated to be < 0.03 ng/mL. 6 Standard intensity warfarin therapeutic range: 2.0-3.0 High intensity warfarin therapeutic range: 2.5-3.5 7 Desirable: <150 Borderline High: 150-199 High: 200-499 Very High: >500 8 Desirable: <200 Borderline High: 200-239 High: >239 9 Low: <40 Desirable: 40-60 High: >60 10 Desirable: <100 Near Optimal: 100-129 Borderline High: 130-159 High: 160-189 Very High: >189 11 pr denied urinary symptoms. 12 SEE RESULT BELOW Name: THAIS RAO : [address]: Cisco Mcfarland NP Acct: [id number] Unit: [id number] AGE: 59 Location: LAB Re05/20/19 SEX: F Status: REG REF SPEC: [id number] GENET: 05/20/19-[address]: Cisco Mcfarland NP REQ: [id number] RECD: 05/20/19 STATUS: COMP _ SOURCE: URINE SPDESC: ORDERED: Urine Culture Procedure Result Reported Site Urine Culture Final 05/21/19- 1212 ML Organism 1 STREP GROUP B [place] Count >100,000 (Many) CFU/ML Susceptibility testing of penicillins and other B-lactams approved by FDA for treatment of Streptococcus pyogenes (Group A Strep) and Streptococcus agalactiae (Group B Strep) is not necessary for clinical purposes and need not be done routinely, since as with vancomycin, resistant strains have not been recognized. (CLSI Z215-B46;p.66) Positive isolates will be saved for one week. Please call the Microbiology Laboratory if further susceptibility testing is needed. * ML - Main Lab . END OF REPORT DEPARTMENT OF PATHOLOGY, [address] [place] [address] Edwin Chanel M.D. Director [facility] # [id number] 13 REFERENCE VALUE <30.0 (Negative) Test Performed by: [facility] [address] [place] [address] 14 Because ethnic data is not always readily [...] 15-29 5 Kidney failure <15 (or dialysis) 15 Standard intensity warfarin therapeutic range: 2.0-3.0 High intensity warfarin therapeutic range: 2.5-3.5 16 Because ethnic data is not always [...] 15-29 5 Kidney failure <15 (or dialysis) Procedures Date Code Description Status 06/16/2019 709696907 Diabetic Retinal Eye Exam Completed 06/04/2019 17968 EEG Recording Awake & Drowsy Completed 01/28/2019 082820885 Bone Mineral Density Test Completed 01/28/2019 65359150 Mammogram Completed 01/13/2018 82143706 Mammogram Completed 12/25/2017 067134622 Diabetic Retinal Eye Exam Completed 09/27/2016 22556226 Mammogram Completed 04/30/2016 628399640 Bone Mineral Density Test Completed 09/07/2015 18908375 Mammogram Completed 08/22/2014 20608634 Colonoscopy Completed 06/22/2014 07232410 Mammogram Completed 06/18/2013 76835637 Mammogram Completed 10/27/2009 18880351 Colonoscopy Completed Medical Devices Description No Information Available Encounters Type Date Location Provider Dx Diagnosis Office Visit 08/26/2019 [facility] Internal Nabila Barrera, N39.0 Urinary tract 10:30a Medicine - Mamadou Chahal infection, site not specified K64.8 Other hemorrhoids K59.03 Drug induced constipation M79.671 Pain in right foot Z23 Encounter for immunization Office Visit 06/14/2019 1:20p [facility] Aiden Maciel Z87.440 Personal history For Infectious Tirso Mitchell of urinary Diseases (tract) infections R19.7 Diarrhea, unspecified Office Visit 06/04/2019 11:31a [facility] Scott I69.30 Unspecified Assoc,ANALI Lim sequelae of Hospitalists cerebral infarction N39.0 Urinary tract infection, site not specified B96.20 Unsp Escherichia coli as the cause of diseases classd elswhr G40.909 Epilepsy, unsp, not intractable, without status epilepticus N18.3 Chronic kidney disease, stage 3 (moderate) Office Visit 06/03/2019 7:00a [facility] Nba Pressley, R42 Dizziness and MD gallagher 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 08/26/2019 N39.0 Urinary tract infection, site not Nabila Barrera M.D. specified 08/26/2019 K64.8 Other hemorrhoids Nabila Barrera M.D. 08/26/2019 K59.03 Drug induced constipation Nabila Barrera M.D. 08/26/2019 M79.671 Pain in right foot Nabila Barrera M.D. 08/26/2019 Z23 Encounter for immunization Nabila Barrera M.D. 07/15/2019 Z00.00 Encounter for general adult medical Nabila Barrera M.D. examination without abnormal findings 07/15/2019 H25.23 Age-related cataract, morgagnian type, Nabila Barrera M.D. bilateral 07/15/2019 M32.9 Systemic lupus erythematosus, Nabila Barrera M.D. unspecified 07/15/2019 N18.3 Chronic kidney disease, stage 3 Nabila Barrera M.D. (moderate) 07/15/2019 G40.89 Other seizures Nabila Barrera M.D. 07/15/2019 D64.9 Anemia, unspecified Nabila Barrera M.D. 07/15/2019 I10 Essential (primary) hypertension Nabila Barrera M.D. 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 07/15/2019 H61.22 Impacted cerumen, left ear Nabila Barrera M.D. 07/15/2019 R94.39 Abnormal result of other cardiovascular Nabila Barrera M.D. function study 06/14/2019 Z87.440 Personal history of urinary (tract) Aiden Mitchell M.D. infections 06/14/2019 R19.7 Diarrhea, unspecified Aiden Mitchell M.D. 06/10/2019 I69.30 Unspecified sequelae of cerebral Munira Sanchez PA-C infarction 06/10/2019 N39.0 Urinary tract infection, site not Munira Sanchez PA-C specified 06/10/2019 B96.20 Unspecified Escherichia coli [E. coli] ANALI Galeas as the cause of diseases classified elsewhere 06/10/2019 G40.909 Epilepsy, unspecified, not intractable, Munira Sanchez PA-C without status epilepticus 06/04/2019 R42 Dizziness and giddiness Nba Pressley MD 06/04/2019 I69.30 Unspecified sequelae of cerebral ANALI García infarction 06/04/2019 N39.0 Urinary tract infection, site not ANALI García specified 06/04/2019 B96.20 Unspecified Escherichia coli [E. coli] ANALI García as the cause of diseases classified elsewhere 06/04/2019 G40.909 Epilepsy, unspecified, not intractable, ANALI García without status epilepticus 06/04/2019 N18.3 Chronic kidney disease, stage 3 ANALI García (moderate) 06/03/2019 R42 Dizziness and giddiness Nba Pressley MD 06/03/2019 R53.1 Weakness ANALI García 06/03/2019 I69.351 Hemiplegia and hemiparesis following Nba Pressley MD cerebral infarction affecting right dominant side 06/03/2019 N18.3 Chronic kidney disease, stage 3 ANALI García (moderate) 06/03/2019 H53.19 Other subjective visual disturbances Nba Pressley MD 06/03/2019 G40.909 Epilepsy, unspecified, not intractable, ANALI García without status epilepticus 06/03/2019 N39.0 Urinary tract infection, site not ANALI García specified 06/03/2019 M32.9 Systemic lupus erythematosus, ANALI García unspecified 06/02/2019 R42 Dizziness and giddiness Patricia Larsen M.D. 06/02/2019 R53.1 Weakness Patricia Larsen M.D. 06/02/2019 N39.0 Urinary tract infection, site not Patricia Larsen M.D. 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 Cisco Oconnorhumaira CORPORATE SALES REPRESENTATIVE cerebral infarction aff 05/11/2019 M25.571 Pain in right ankle and joints of right AiramMENDY VillaP foot 05/11/2019 M79.604 Pain in right leg Cisco Mcfarland, CORPORATE SALES REPRESENTATIVE 05/11/2019 K59.03 Drug induced constipation Cisco Mcfarland CORPORATE SALES REPRESENTATIVE 05/11/2019 Z79.899 Other intermediate frame tender (current) drug therapy Cisco Oconnorhumaira RADHA Plan of Treatment 10/08/2019 - Jennifer Zimmer, N.P.R21 Rash and other nonspecific skin eruptionNew Medication:Triamcinolone Acetonide 0.1 % - apply twice a day until clearComments :For your rash I have sent a prescription to the pharmacy for Triamcinolone cream. Apply this to the affected areas until clear. If you do not get relief with this, mariama castle contact the office. You may need to see a bowling ball molder. Functional Status Functional Condition Comment Date Status Standard walker is used to ambulate Active Quad cane is used with the left hand to ambulate Active Mental Status Description No Information Available Referrals Description No Information Available
--- OUTSIDE RECORDS SUMMARY | 2019-10-25 01:10 | XMS REPORT ---
:1960 Author Organization [facility] Care Team Providers Name Role Phone Unavailable Unavailable Unavailable Problems Condition Condition Condition Status Onset Resolution Last Treating Comments Name Details Category Date Date Treatment Clinician Date Systemic Systemic Diagnosis Active 2016-10 Jenelle lupus lupus 10-27 Wing erythematos erythematos [id number] us, us, unspecified unspecified Pain in Pain in Diagnosis Active 2016-10 Jenelle right arm right arm 10-27 Wing [id number] Pain in Pain in Diagnosis Active 2016-10 Jenelle right lower right lower 10-27 Wing leg leg [id number] Contracture Contracture Diagnosis Active Jenelle , right , right 10-27 Maciej elbow elbow [id number] Urinary Urinary Diagnosis Active 2016-10 Jenelle tract tract 11-03 Maciej infection, infection, [id number] site not site not specified specified I12.9 I12.9 Diagnosis Active 2016-10 Jenelle 11-09 Wing [id number] Pain frequent Pain Mgmt Resolve 2016-102019-04-23 Maria A pain d 11-03 15:40:00 Jaquan 14:09: [id number] 00 Nutrition nutritional Nutrition Resolve 2016-102017-09-30 Maria A restriction d 11-03 14:00:00 Jaquan s 14:09: [id number] 00 Elimination knowledge/s Eliminatio Resolve 2016-102017-09-30 Maria A kill n d 11-03 14:00:00 Jaquan deficit: pt 14:09: [id number] 00 Elimination urinary Eliminatio Resolve 2016-102017-09-30 Maria A incontinenc n d 11-03 14:00:00 Jaquan e 14:09: [id number] 00 Elimination UTI within Eliminatio Resolve 2016-102017-09-30 Maria A past 14 n d 11-03 14:00:00 Jaquan days 14:09: [id number] 00 Activity ADL Activity Unknown 2016-10 Quality assistance 11-03 Realtime required 14:09: 00 Safety risk for Safety Resolve 2016-102017-09-23 Maria Aelva pendletoniza d 11-03 09:45:00 Jaquan tion 14:09: [id number] 00 Medication potential Meds Resolve 2016-102017-10-02 Maria A clinically d 11-03 13:30:00 Jaquan significant 14:09: [id number] medication 00 issue Medication oral med Meds Resolve 2016-102017-10-02 Maria A assistance d 11-03 13:30:00 Jaquan required 14:09: [id number] 00 Elimination recurring Eliminatio Resolve 2016-102017-09-30 Maria A UTI n d 11-10 14:00:00 Jaquan 14:00: [id number] 00 Safety risk for Safety Resolve 2016-102017-09-30 [facility] 14:00:00 Jaquan tion 11:04: [id number] 00 Nutrition nutritional Nutrition Resolve 2016-102017-10-07 Maria A restriction d 12-03 11:06:00 Jaquan s 13:30: [id number] 00 Elimination urinary Eliminatio Resolve 2016-102017-10-02 Maria A incontinenc n d 12-03 13:30:00 Jaquan e 13:30: [id number] 00 Safety risk for Safety Resolve 2016-102017-10-07 Maria A hospitaliza d 12-03 11:06:00 Jaquan tion 13:30: [id number] 00 Elimination urinary Eliminatio Resolve 2016-102017-10-28 Maria A incontinenc n d 12-22 09:32:00 Jaquan e 10:14: [id number] 00 Elimination constipatio Eliminatio Resolve 2016-102017-10-28 Maria A n n d 12-22 09:32:00 Jaquan 10:14: [id number] 00 Pain frequent Pain Mgmt Unknown Maria A pain 10-28 Jaquan 09:32: [id number] 00 Activity ADL Activity Resolve 2018-02-10 Mariaa assistance d 10-28 11:05:00 Jaquan required 09:32: [id number] 00 Elimination urinary Eliminatio Resolve 2017-12-17 Mehnaz incontinenc n d 11-04 11:35:00 [place] e 13:15: [id number] 00 Safety risk for Safety Active Mehnaz hospitaliza 11-04 [place] tion 13:15: [id number] 00 Safety can be left Safety Active Mehnaz alone for 11-04 [place]gal[place] only short 13:15: [id number] periods 00 Elimination urinary Eliminatio Resolve 2018-02-26 Maria A incontinenc n d 12-31 12:00:00 Jaquan e 10:00: [id number] 00 Medication oral med Meds Resolve 2018-02-26 Maria A assistance d 12-31 12:00:00 Jaquan required 10:00: [id number] 00 Medication injectable Meds Resolve 2018-02-26 Maria A med d 12-31 12:00:00 Jaquan assistance 10:00: [id number] required 00 Elimination constipatio Eliminatio Resolve 2018-02-26 Maria A n n d 01-20 12:00:00 Jaquan 11:19: [id number] 00 Safety fire risk Safety Active Maria A present 6-16 Eliz 12:00: [id number] 00 Elimination urinary Eliminatio Resolve 2018-09-03 Maria A incontinenc n d 04-16 11:30:00 Eliz e 11:56: [id number] 00 Medication oral med Meds Resolve 2018-12-24 Maria A assistance d 04-16 13:24:00 [place] required 11:56: [id number] 00 Safety fall risk Safety Active Maria A factor 830 Eliz present 14:00: [id number] 00 Pain frequent Pain Mgmt Unknown 2017-10 Maria A pain 10-28 Eliz 13:00: [id number] 00 Endo/López anti-coagul Endo/López Resolve 2017-102019-06-24 Maria A ation d 1-08 13:34:00 Eliz therapy 11:30: [id number] 00 Elimination urinary Eliminatio Resolve 2017-102019-02-22 Maria A incontinenc n d 14:30:00 [place] e 14:34: [id number] 00 Nutrition nutritional Nutrition Active Princess restriction 2-14 Alicia [place] 13:11: [id number] 00 Cardio chest pain Cardiovasc Resolve 2019-09-16 Maria A ular d 12-24 13:52:00 Eliz 13:24: [id number] 00 Elimination urinary Eliminatio Resolve 2019-08-19 Maria A incontinenc n d 04-23 13:50:00 [place] e 15:40: [id number] 00 Safety can be left Safety Unknown Maria A alone for 04-23 Eliz only short 15:40: [id number] periods 00 Pain frequent Pain Mgmt Resolve 2019-06-24 Kaye pain d 06-11 13:34:00 [place] 09:20: [id number] 00 Elimination UTI within Eliminatio Resolve 2019-08-19 Kaye past 14 n d 06-11 13:50:00 [place] days 09:20: [id number] 00 Elimination bowel Eliminatio Resolve 2019-08-19 Kaye incontinenc n d 06-11 13:50:00 [place] e 09:20: [id number] 00 Neuro confusion Neuro/Emot Active Kaye present ion 06-11 [place] 09:20: [id number] 00 Activity ADL Activity Unknown Kaye assistance 06-11 [place] required 09:20: [id number] 00 Activity self-care Activity Active Kaye deficit 06-11 [place] 09:20: [id number] 00 Medication oral med Meds Resolve 2019-06-24 Kaye assistance d 06-11 13:34:00 [place] required 09:20: [id number] 00 Musculoskel transfer Musculoske Resolve 2019-09-16 Kaye etal assistance letal d 06-11 13:52:00 [place] required 09:20: [id number] 00 Musculoskel requires Musculoske Resolve 2019-09-16 Kaye etal human letal d 8-16 13:52:00 Christoph assist to 09:20: [id number] leave home 00 Activity ADL Activity Active Elizabeth DionicioDandy gus 07-08 Vince required 14:57: e 00 [id number] Medication potential Meds Active Princess clinically 07-22 [place]ager significant 14:30: [id number] medication 00 issue Elimination urinary Eliminatio Resolve 2018-102019-09-16 Maria A incontinenc n d 11-02 13:52:00 Tree e 11:45: [employer] 00 [id number] Elimination urinary Eliminatio Active 2018-10 Maria A incontinenc n 12-01 Tree e 10:32: [employer] 00 [id number] Allergies, Adverse Reactions, Alerts Allergy Name Allergy Status Severity Reaction(s) Onset Inactive Treating Comments Type Date Date Clinician fentanyl Base Active Unknown Rash, Hives, 2016-10 Angy Ingredient itchy -16 Primitivo [id number] Sulfa Allergen Active Unknown Facial 2016-10 Angy (Sulfonamide Group Redness/ 1-16 Primitivo Antibiotics) Flushing [id number] baclofen Base Active Moderate Unknown 2016-10 Angy Ingredient 1-16 Primitivo [id number] nitrofuranto Base Active Unknown Reaction 2016-10 Angy in Ingredient Unknown 1-16 Primitivo [id number] rosuvastatin Base Active Unknown extreme Princess Ingredient fatigue and 2-14 Seager CP [id number] Medications Ordered Filled Start Stop Current Ordering Indication Dosage Frequency Signature Comments Components Medication Medication Date Date Medication? Clinician (SIG) Name Name amLODIPine amLODIPine 2016-10- No Barrera /2 tab Unknown 5 mg tablet 5 mg tablet 11-03 MDNabila gabapentin gabapentin 2016-10 No Barrera 600 mg Unknown 600 mg 600 mg 11-03 ,Nabila tablet tablet hydroxychlo hydroxychlo 2016-10 Barrera 200 mg Unknown roquine 200 roquine 200 11-03 MDNabila mg tablet mg tablet Bystolic 5 Bystolic 5 2016-10 No Barrera 5 mg Unknown mg tablet mg tablet 11-03 Nabila BENSON PHENobarbit PHENobarbit 2016-10 Barrera 60 mg Unknown al 60 mg al 60 mg 11-03 ,Nabila tablet tablet oxyCODONE-a oxyCODONE-a 2016-10- No Barrera 1 Unknown cetaminophe cetaminophe 11-03 ,Nabila [...] Unknown + D(3) 600 + D(3) 600 ,Nabila mg (1,500 mg (1,500 mg)-400 mg)-400 unit tablet unit tablet gabapentin gabapentin No Barrera 1 tab Unknown 600 mg 600 mg ,Nabila tablet tablet Bystolic 5 Bystolic 5 No [...] 20 mg Unknown 20 mg 20 mg ,Dirk tablet tablet Pepcid 20 Pepcid 20 2016-10- No Barrera 20mg Unknown mg tablet mg tablet 11-03 Nabila BENSON amLODIPine amLODIPine 2016-10- No Barrera 1 tab Unknown 5 mg tablet 5 mg tablet 11-09 Wes BENSONa amLODIPine amLODIPine 2016-10- No Barrera 2.5 mg Unknown 5 mg tablet 5 mg tablet 11-09 Nabila BENSON hydroxychlo hydroxychlo 2016-10- No Barrera 200 mg Unknown roquine 200 roquine 200 11-03 ,Nabila mg tablet mg tablet oxyCODONE-a oxyCODONE-a 2016-10- No Barrera 5/325 Unknown cetaminophe cetaminophe 11-03 MD,Nabila mg n 5 mg-325 n 5 mg-325 mg tablet mg tablet amLODIPine amLODIPine 2016-10- No Barrera 1 tab Unknown 5 mg tablet 5 mg tablet 11-17 MD,Nabila PHENobarbit PHENobarbit 2016-10 No Barrera 1 Unknown al 64.8 mg al 64.8 mg 11-04 MD,Nabila tablet tablet tablet levoFLOXaci levoFLOXaci No Barrera 500mg Unknown n 500 mg n 500 mg 01-17 ,Nabila for 5 tablet tablet days clindamycin clindamycin 2017- No Barrera 300 mg Unknown HCl 300 mg HCl 300 mg 04-16 MD,Nabila capsule capsule clindamycin clindamycin 2017- No Barrera 300 mg Unknown HCl 300 mg HCl 300 mg 04-16 MD,Nabila capsule capsule Aspirin Low Aspirin Low 2017-10- No Bruce Unknown Unknown Dose 81 mg Dose 81 mg -16 MD,Nabila tablet,jorge tablet,jorge yed release yed release amLODIPine amLODIPine 2017-10 No Barrera Unknown Unknown 10 mg 10 mg 0- MD,Nabila tablet tablet Tylenol 8 Tylenol 8 2017-10 No Barrera Unknown Unknown Hour 650 mg Hour 650 mg 0- MD,Nabila tablet,exte tablet,exte nded nded release release clindamycin clindamycin 2017-10- No Barrera Unknown Unknown HCl 300 mg HCl 300 mg 08-26 MD,Nabila capsule capsule Floranex 1 Floranex 1 2017-10- No Barrera Unknown Unknown million million 0- MD,Nabila cell tablet cell tablet oxyCODONE-a oxyCODONE-a 2017-10 No Barrera Unknown Unknown cetaminophe cetaminophe 0- MD,Nabila n 5 mg-325 n 5 mg-325 mg tablet mg tablet hydroxychlo hydroxychlo 2017-10- No Vi Unknown Unknown roquine 200 roquine 200 12-17 Jr,Alonzo mg tablet mg tablet J calcium calcium No Bruce Unknown Unknown carbonate carbonate 1- MD,Nabila 600 600 mg(1,500 mg(1,500 mg)-vitamin mg)-vitamin D3 800 unit D3 800 unit chewable chewable tablet tablet rosuvastati rosuvastati 2018- No [place] Unknown Unknown n 5 mg n 5 mg 11-13 ,Kerry tablet tablet hydroxychlo hydroxychlo 2017-10 2019- No Vi Unknown Unknown roquine 200 roquine 200 2 07-17 Jr,Alonzo mg tablet mg tablet J Pepcid 20 Pepcid 20 2016-10 No Barrera Unknown Unknown mg tablet mg tablet 11-03 Nabila BENSON rosuvastati rosuvastati No Jose Maria Unknown Unknown n 5 mg n 5 mg 02-04 ,Kerry tablet tablet hydroxychlo hydroxychlo No Vi [...]
--- OUTSIDE RECORDS SUMMARY | 2019-10-25 01:10 | XMS REPORT ---
:1960 Author Organization [facility] Care Team Providers Name Role Phone Unavailable Unavailable Unavailable Problems Condition Condition Condition Status Onset Resolution Last Treating Comments Name Details Category Date Date Treatment Clinician Date Systemic Systemic Diagnosis Active 2016-10 Jenelle lupus lupus 10-27 Wing erythematos erythematos [id number] us, us, unspecified unspecified Pain in Pain in Diagnosis Active 2016-10 Jenelle right arm right arm 10-27 Wing [id number] Pain in Pain in Diagnosis Active 2016-10 Jenelle right lower right lower 10-27 Wing leg leg [id number] Contracture Contracture Diagnosis Active Jenelle , right , 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 [id number] Urinary Urinary Diagnosis Active 2016-10 Jenelle tract tract 11-03 Wing infection, infection, [id number] site not site not specified specified Hypertensiv Hypertensiv Diagnosis Active 2016-10 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 chr kdny chr kdny 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, disease, 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) (mild) 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, disorder, [id number] single single episode, episode, unspecified unspecified Spinal Spinal Diagnosis Active Jenelle stenosis, stenosis, Wing site site [id number] unspecified unspecified 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, hip joint, [id number] bilateral bilateral Epilepsy, Epilepsy, Diagnosis Active Jenelle unsp, not unsp, not Wing intractable intractable [id number] , without , without status status epilepticus epilepticus 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 [id number] Pain frequent Pain Mgmt Resolve 2016-102019-04-23 Maria A pain d 11-03 15:40:00 Jaquan 14:09: [id number] 00 Nutrition nutritional Nutrition Resolve 2016-102017-09-30 Maria A restriction d 11-03 14:00:00 Jaquan s 14:09: [id number] 00 Elimination knowledge/s Eliminatio Resolve 2016-102017-09-30 Maria A kill n d 11-03 14:00:00 Jaquan deficit: pt 14:09: [id number] 00 Elimination urinary Eliminatio Resolve 2016-102017-09-30 Maria A incontinenc n d 11-03 14:00:00 Jaquan e 14:09: [id number] 00 Elimination UTI within Eliminatio Resolve 2016-102017-09-30 Maria A past 14 n d 11-03 14:00:00 Jaquan days 14:09: [id number] 00 Activity ADL Activity Unknown 2016-10 Quality assistance 11-03 Realtime required 14:09: 00 Safety risk for Safety Resolve 2016-102017-09-23 Maria A hospitaliza d 11-03 09:45:00 Jaquan tion 14:09: [id number] 00 Medication potential Meds Resolve 2016-102017-10-02 Maria A clinically d 11-03 13:30:00 Jaquan significant 14:09: [id number] medication 00 issue Medication oral med Meds Resolve 2016-102017-10-02 Maria A assistance d 11-03 13:30:00 Jaquan required 14:09: [id number] 00 Elimination recurring Eliminatio Resolve 2016-102017-09-30 Maria A UTI n d 11-10 14:00:00 Jaquan 14:00: [id number] 00 Safety risk for Safety Resolve 2016-102017-09-30 Maria A hospitaliza d 11-25 14:00:00 Jaquan tion 11:04: [id number] 00 Nutrition nutritional Nutrition Resolve 2016-102017-10-07 Maria A restriction d 12-03 11:06:00 Jaquan s 13:30: [id number] 00 Elimination urinary Eliminatio Resolve 2016-102017-10-02 Maria A incontinenc n d 12-03 13:30:00 Jaquan e 13:30: [id number] 00 Safety risk for Safety Resolve 2016-102017-10-07 Maria A hospitaliza d 12-03 11:06:00 Jaquan tion 13:30: [id number] 00 Elimination urinary Eliminatio Resolve 2016-102017-10-28 Maria A incontinenc n d 12-22 09:32:00 Jaquan e 10:14: [id number] 00 Elimination constipatio Eliminatio Resolve 2016-102017-10-28 Maria A n n d 12-22 09:32:00 Jaquan 10:14: [id number] 00 Pain frequent Pain Mgmt Unknown Maria A pain 10-28 Jaquan 09:32: [id number] 00 Activity ADL Activity Resolve 2018-02-10 Maria A assistance d 10-28 11:05:00 Jaquan required 09:32: [id number] 00 Elimination urinary Eliminatio Resolve 2017-12-17 Mehnaz incontinenc n d 11-04 11:35:00 [place] e 13:15: [id number] 00 Safety risk for Safety Active Mehnaz hospitaliza 11-04 U[place]de tion 13:15: [id number] 00 Safety can be left Safety Active Mehnaz alone for 11-04 Ugalde only short 13:15: [id number] periods 00 Elimination urinary Eliminatio Resolve 2018-02-26 Maria A incontinenc n d 12-31 12:00:00 Jaquan e 10:00: [id number] 00 Medication oral med Meds Resolve 2018-02-26 Maria A assistance d 12-31 12:00:00 Jaquan required 10:00: [id number] 00 Medication injectable Meds Resolve 2018-02-26 Maria A med d 12-31 12:00:00 Jauqan assistance 10:00: [id number] required 00 Elimination constipatio Eliminatio Resolve 2018-02-26 Maria A n n d 01-20 12:00:00 Jaquan 11:19: [id number] 00 Safety fire risk Safety Active Maria A present 04-11 Eliz 12:00: [id number] 00 Elimination urinary Eliminatio Resolve 2018-09-03 Maria A incontinenc n d 04-16 11:30:00 [place] e 11:56: [id number] 00 Medication oral med Meds Resolve 2018-12-24 Maria A assistance d 04-16 13:24:00 Eliz required 11:56: [id number] 00 Safety fall risk Safety Active Maria A factor 06-25 [place] present 14:00: [id number] 00 Pain frequent Pain Mgmt Unknown 2017-10 Maria A pain 10-28 [place] 13:00: [id number] 00 Endo/López anti-coagul Endo/López Resolve 2017-102019-06-24 Maria A ation d 11-03 13:34:00 [place] therapy 11:30: [id number] 00 Elimination urinary Eliminatio Resolve 2017-102019-02-22 Maria A incontinenc n d 14:30:00 Eliz e 14:34: [id number] 00 Nutrition nutritional Nutrition Active Princess restriction 2-14 [place] s 13:11: [id number] 00 Cardio chest pain Cardiovasc Resolve 2019-09-16 Maria A ular d 12-24 13:52:00 Eliz 13:24: [id number] 00 Elimination urinary Eliminatio Resolve 2019-08-19 Maria A incontinenc n d 04-23 13:50:00 Eliz e 15:40: [id number] 00 Safety can be left Safety Unknown Maria A alone for 04-23 Eliz only short 15:40: [id number] periods 00 Pain frequent Pain Mgmt Resolve 2019-06-24 Kaye pain d 16 13:34:00 [place] 09:20: [id number] 00 Elimination UTI within Eliminatio Resolve 2019-08-19 Kaye past 14 n d 06-11 13:50:00 [place] days 09:20: [id number] 00 Elimination bowel Eliminatio Resolve 2019-08-19 Kaye incontinenc n d 06-11 13:50:00 [place] e 09:20: [id number] 00 Neuro confusion Neuro/Emot Active Kaye present ion 06-11 [place] 09:20: [id number] 00 Activity ADL Activity Unknown Kaye assistance 06-11 [place] required 09:20: [id number] 00 Activity self-care Activity Active Kaye deficit 06-11 [place] 09:20: [id number] 00 Medication oral med Meds Resolve 2019-06-24 Kaye assistance d 06-11 13:34:00 [place] required 09:20: [id number] 00 Musculoskel transfer Musculoske Resolve 2019-09-16 Kaye etal assistance letal d 06-11 13:52:00 [place] required 09:20: [id number] 00 Musculoskel requires Musculoske Resolve 2019-09-16 Kaye etal human letal d 06-11 13:52:00 [place] assist to 09:20: [id number] leave home 00 Activity ADL Activity Active Elizabeth A. assistance 07-08 [facility] required 14:57: e 00 [id number] Medication potential Meds Active Princess clinically 07-22 [place] significant 14:30: [id number] medication 00 issue Elimination urinary Eliminatio Resolve 2018-102019-09-16 Maria A incontinenc n d 11-02 13:52:00 Tree e 11:45: [employer] 00 [id number] Elimination urinary Eliminatio Active 2018-10 Maria A incontinenc n 12-01 Tree e 10:32: [employer] 00 [id number] Allergies, Adverse Reactions, Alerts Allergy Name Allergy Status Severity Reaction(s) Onset Inactive Treating Comments Type Date Date Clinician fentanyl Base Active Unknown Rash, Hives, 2016-10 Angy Ingredient itchy -16 Primitivo [id number] Sulfa Allergen Active Unknown Facial 2016-10 Angy (Sulfonamide Group Redness/ -16 Primitivo Antibiotics) Flushing [id number] baclofen Base Active Moderate Unknown 2016-10 Angy Ingredient 1-16 Primitivo [id number] nitrofuranto Base Active Unknown Reaction 2016-10 Angy in Ingredient Unknown 11-11 Primitivo [id number] rosuvastatin Base Active Unknown extreme Princess Ingredient fatigue and 2- Seager CP [id number] Medications Ordered Filled Start Stop Current Ordering [...] + D(3) 600 + D(3) 600 Adriel BENSNONabila mg (1,500 mg (1,500 mg)-400 mg)-400 unit [...] chewable tablet tablet rosuvastati rosuvastati 2018- No [place] Unknown Unknown n 5 mg n 5 [...] Observation Time Observation Value Comments SYSTOLIC mm[Hg] 2019-10-17 18:09:29 122 mm[Hg] mm[Hg] Method: Sit SYSTOLIC mm[Hg] 2019-06-11 18:07:21 134 mm[Hg] mm[Hg] Method: Stand SYSTOLIC mm[Hg] 2019-08-19 18:08:30 106 mm[Hg] mm[Hg] Method: Lie DIASTOLIC mm[Hg] 2019-10-17 18:09:29 76 mm[Hg] mm[Hg] Method: Sit DIASTOLIC mm[Hg] 2019-06-11 18:07:21 76 mm[Hg] mm[Hg] Method: Stand DIASTOLIC mm[Hg] 2019-08-19 18:08:30 72 mm[Hg] mm[Hg] Method: Lie PULSE 2019-10-17 18:09:29 64 /min /min RESP RATE 2019-10-17 18:09:29 16 /min /min TEMP 2019-10-17 18:09:29 97.9 [degF] Procedures This patient has no known procedures. Results This patient has no known results.
--- OUTSIDE RECORDS SUMMARY | 2019-10-25 01:10 | XMS REPORT ---
:1960 Author Organization [facility] Care Team Providers Name Role Phone Unavailable Unavailable Unavailable Problems Condition Condition Condition Status Onset Resolution Last Treating Comments Name Details Category Date Date Treatment Clinician Date Systemic Systemic Diagnosis Active 2016-10 Jenelle lupus lupus 10-27 Wing erythematos erythematos [id number] us, us, unspecified unspecified Pain in Pain in Diagnosis Active 2016-10 Jenelle right arm right arm 10-27 Wing [id number] Pain in Pain in Diagnosis Active 2016-10 Jenelle right lower right lower 10-27 [facility] leg leg [id number] Contracture Contracture Diagnosis Active Jenelle , right , 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 [id number] Urinary Urinary Diagnosis Active 2016-10 Jenelle tract tract 11-03 Wing infection, infection, [id number] site not site not specified specified Hypertensiv Hypertensiv Diagnosis Active 2016-10 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 [id number] disease w disease w stg stg 1-4/unsp 1-4/unsp chr kdny chr kdny 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, disease, 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) (mild) 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, disorder, [id number] single single episode, episode, unspecified unspecified Spinal Spinal Diagnosis Active Jenelle stenosis, stenosis, Wing site site [id number] unspecified unspecified 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, hip joint, 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 bilateral bilateral Epilepsy, Epilepsy, Diagnosis Active Jenelle unsp, not unsp, not Wing intractable intractable [id number] , without , without status status epilepticus epilepticus 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 Pain frequent Pain Mgmt Resolve 2016-102019-04-23 Maria A pain d 11-03 15:40:00 Jaquan 14:09: [id number] 00 Nutrition nutritional Nutrition Resolve 2016-102017-09-30 Maria A restriction d 11-03 14:00:00 Jaquan s 14:09: [id number] 00 Elimination knowledge/s Eliminatio Resolve 2016-102017-09-30 Maria A kill n d 11-03 14:00:00 Jaquan deficit: pt 14:09: [id number] 00 Elimination urinary Eliminatio Resolve 2016-102017-09-30 Maria A incontinenc n d 11-03 14:00:00 Jaquan e 14:09: [id number] 00 Elimination UTI within Eliminatio Resolve 2016-102017-09-30 Maria A past 14 n d 11-03 14:00:00 Jaquan days 14:09: [id number] 00 Activity ADL Activity Unknown 2016-10 Quality assistance 11-03 Realtime required 14:09: 00 Safety risk for Safety Resolve 2016-102017-09-23 Maria A hospitaliza d 11-03 09:45:00 Jaquan tion 14:09: [id number] 00 Medication potential Meds Resolve 2016-102017-10-02 Maria A clinically d 11-03 13:30:00 Jaquan significant 14:09: [id number] medication 00 issue Medication oral med Meds Resolve 2016-102017-10-02 Maria A assistance d 11-03 13:30:00 Jaquan required 14:09: [id number] 00 Elimination recurring Eliminatio Resolve 2016-102017-09-30 Maria A UTI n d 11-10 14:00:00 Jaquan 14:00: [id number] 00 Safety risk for Safety Resolve 2016-102017-09-30 Maria A hospitaliza d 11-25 14:00:00 Jaquan tion 11:04: [id number] 00 Nutrition nutritional Nutrition Resolve 2016-102017-10-07 Maria A restriction d 12-03 11:06:00 Jaquan s 13:30: [id number] 00 Elimination urinary Eliminatio Resolve 2016-102017-10-02 Maria A incontinenc n d 12-03 13:30:00 Jaquan e 13:30: [id number] 00 Safety risk for Safety Resolve 2016-102017-10-07 Maria A hospitaliza d 12-03 11:06:00 Jaquan tion 13:30: [id number] 00 Elimination urinary Eliminatio Resolve 2016-102017-10-28 Maria A incontinenc n d 12-22 09:32:00 Jaquan e 10:14: [id number] 00 Elimination constipatio Eliminatio Resolve 2016-102017-10-28 Maria A n n d 12-22 09:32:00 Jaquan 10:14: [id number] 00 Pain frequent Pain Mgmt Unknown Maria A pain 10-28 Jaquan 09:32: [id number] 00 Activity ADL Activity Resolve 2018-02-10 Maria A assistance d 10-28 11:05:00 Jaquan required 09:32: [id number] 00 Elimination urinary Eliminatio Resolve 2017-12-17 Mehnaz incontinenc n d 11-04 11:35:00 [place] e 13:15: [id number] 00 Safety risk for Safety Active Mehnaz hospitaliza 11-04 Ugalde tion 13:15: [id number] 00 Safety can be left Safety Active Mehnaz alone for 11-04 Ugalde only short 13:15: [id number] periods 00 Elimination urinary Eliminatio Resolve 2018-02-26 Maria A incontinenc n d 12-31 12:00:00 Jaquan e 10:00: [id number] 00 Medication oral med Meds Resolve 2018-02-26 Maria A assistance d 12-31 12:00:00 Jaquan required 10:00: [id number] 00 Medication injectable Meds Resolve 2018-02-26 Maria A med d 12-31 12:00:00 Jaquan assistance 10:00: [id number] required 00 Elimination constipatio Eliminatio Resolve 2018-02-26 Maria A n n d 01-20 12:00:00 Jaquan 11:19: [id number] 00 Safety fire risk Safety Active Maria A present 04-11 Eliz 12:00: [id number] 00 Elimination urinary Eliminatio Resolve 2018-09-03 Maria A incontinenc n d 04-16 11:30:00 [facility] e 11:56: [id number] 00 Medication oral med Meds Resolve 2018-12-24 Maria A assistance d 04-16 13:24:00 Eliz required 11:56: [id number] 00 Safety fall risk Safety Active Maria A factor 06-25 [facility] present 14:00: [id number] 00 Pain frequent Pain Mgmt Unknown 2017-10 Maria A pain 10-28 [facility] 13:00: [id number] 00 Endo/López anti-coagul Endo/López Resolve 2017-102019-06-24 Maria A ation d 11-03 13:34:00 [facility] therapy 11:30: [id number] 00 Elimination urinary Eliminatio Resolve 2017-102019-02-22 Maria A incontinenc n d 14:30:00 Eliz e 14:34: [id number] 00 Nutrition nutritional Nutrition Active Princess restriction 2-14 [place] s 13:11: [id number] 00 Cardio chest pain Cardiovasc Resolve 2019-09-16 Maria A ular d 12-24 13:52:00 Eliz 13:24: [id number] 00 Elimination urinary Eliminatio Resolve 2019-08-19 Maria A incontinenc n d 04-23 13:50:00 Eliz e 15:40: [id number] 00 Safety can be left Safety Unknown Maria A alone for 04-23 Eliz only short 15:40: [id number] periods 00 Pain frequent Pain Mgmt Resolve 2019-06-24 Kaye pain d 16 13:34:00 [place] 09:20: [id number] 00 Elimination UTI within Eliminatio Resolve 2019-08-19 Kaye past 14 n d 06-11 13:50:00 [place] days 09:20: [id number] 00 Elimination bowel Eliminatio Resolve 2019-08-19 Kaye incontinenc n d 06-11 13:50:00 [place] e 09:20: [id number] 00 Neuro confusion Neuro/Emot Active Kaye present ion 06-11 [place] 09:20: [id number] 00 Activity ADL Activity Unknown Kaye assistance 06-11 [place] required 09:20: [id number] 00 Activity self-care Activity Active Kaye deficit 06-11 [place] 09:20: [id number] 00 Medication oral med Meds Resolve 2019-06-24 Kaye assistance d 06-11 13:34:00 [place] required 09:20: [id number] 00 Musculoskel transfer Musculoske Resolve 2019-09-16 Kaye etal assistance letal d 06-11 13:52:00 [place] required 09:20: [id number] 00 Musculoskel requires Musculoske Resolve 2019-09-16 Kaye etal human letal d 06-11 13:52:00 [place] assist to 09:20: [id number] leave home 00 Activity ADL Activity Active Elizabeth A. assistance 07-08 [facility] required 14:57: e 00 [id number] Medication potential Meds Active Princess clinically 07-22 [place] significant 14:30: [id number] medication 00 issue Elimination urinary Eliminatio Resolve 2018-102019-09-16 Maria A incontinenc n d 11-02 13:52:00 [place] e 11:45: [employer] 00 [id number] Elimination urinary Eliminatio Active 2018-10 Maria A incontinenc n 12-01 Tree e 10:32: [employer] 00 [id number] Allergies, Adverse Reactions, Alerts Allergy Name Allergy Status Severity Reaction(s) Onset Inactive Treating Comments Type Date Date Clinician fentanyl Base Active Unknown Rash, Hives, 2016-10 Angy Ingredient itchy -16 Primitivo [id number] Sulfa Allergen Active Unknown Facial 2016-10 Angy (Sulfonamide Group Redness/ -16 Primitivo Antibiotics) Flushing [id number] baclofen Base Active Moderate Unknown 2016-10 Angy Ingredient 1-16 Primitivo [id number] nitrofuranto Base Active Unknown Reaction 2016-10 Angy in Ingredient Unknown 11-11 Primitivo [id number] rosuvastatin Base Active Unknown extreme Princess Ingredient fatigue and 2- [place]ager CP [id number] Medications Ordered Filled Start Stop Current Ordering [...] Hour 650 mg Hour 650 mg 0- MD,Nablia tablet,exte tablet,exte nded nded release release clindamycin [...] chewable tablet tablet rosuvastati rosuvastati 2018- No Faulk Unknown Unknown n 5 mg n 5 [...]
--- OUTSIDE RECORDS SUMMARY | 2019-10-25 01:11 | XMS REPORT | Continuity of Care Document ---
:1960 External Reference #:[id number] Author Name Nabila Barrera M.D. (transmitted by agent of provider Kisha Quispe) Address [address] [facility] [address], [place] [address] Care Team Providers Name Role Phone Nabila Barrera MD - Internal Care Team Information [facility] [facility] Jamaal Wynn MD - Internal Medicine Care Team Information [place] [phone] Mark Thompson MD - Dermatology Care Team Information [place] [phone] Cisco Mcfarland - Nurse Care Team Information [place] [phone] Practitioner Alonzo Lebron MD - Rheumatology Care Team Information [place] Problems Active Problems Provider Date Systemic lupus erythematosus Nabila Barrera M.D. Onset: 05/09/2012 Medications [facility] (Current) Use Encounter Emile Hawkins M.D. Onset: [...] Note: phenobarb level 26.27 Aug 2017; in [employer] MANAGER database [address] García most recent May 2014 with no neurology visits after that Headache Jayden Carter MD Onset: 08/13/2018 Pain in right lower limb Jayden Carter MD Onset: 08/13/2018 Abnormal results of cardiovascular Kerry Moise M.D. Onset: 11/10/2018 function studies Social History Type Date Description Comments Sex Unknown Tobacco Use Start: Unknown Former Cigarette End: Unknown Smoker Smoking Status Reviewed: 08/26/19 Former Cigarette Smoker ETOH Use Denies alcohol [...] Medications SIG Qnty Indications Ordering Date Provider Metamucil once a day 60caps K59.03 Nabila Barrera, 08/26/2019 0.52gm Capsules M.D. Ciprofloxacin HCL Take 1 Tablet Unknown 08/22/2019 500mg Tablets By Mouth Two Times Daily For 3 Days Prinivil 1/2 tab every 90tabs Nabila Barrera, 06/10/2019 5mg Tablets day M.D. Aspirin 1 by mouth 28tabs Other Ordering 06/07/[address] every day Provider Heparin Lock Flush 0600,1800 Unknown 06/04/2019 10Unit/ML Solution Hydroxychloroquine Sulfate take 1 tablet 180tabs Z79.899 Cisco Mcfarland, 200mg by mouth TIRE MANAGER Tablets twice a day M32.14 M32.9 Rosuvastatin Calcium 1 tab by mouth 45tabs Niurka Gonzalez NP 01/19/2019 5mg every other day at Tablets bedtime Amlodipine Besylate Take 1 Tablet By 90tabs I10 Ameya Rivera, 2017 10mg Mouth Every Day M.D. Tablets Floranex Every Day 15tabs Unknown 08/14/2018 Tablets Calcium 500+D3 1 tab by mouth 180tabs M85.89 Zsshantanu Mcfarland, 12/18/2017 [id number] twice a day TIRE MANAGER Tablets Phenobarbital 1 tab by mouth 60tabs Nabila Barrera, 05/09/2012 64.8mg Tablets twice a day M.D. Gabapentin take 1 tablet by 180tabs Nabila Barrera, 600mg Tablets mouth two times M.D. daily Bystolic Take 1 Tablet By 90tabs Nabila Barrera, 5mg Tablets Mouth Every Day M.D. Pepcid Take 1 Tablet By 90tabs Nabila Barrera, 20mg Tablets Mouth Every Day M.D. Acetaminophen ER 1 by mouth twice a Unknown 650mg day as needed Tablets ER Oxycodone-Acetaminophen 1 tabs by mouth Unknown every 4-6 hours as 5-325mg Tablets needed for pain Immunizations CPT Code Status Date Vaccine Reaction Lot # [id number] Given 08/26/2019 Influenza Virus Vaccine, [id number] Quadrivalent ([id number]), Derived From Cell 16450 Given 07/15/2019 Pneumococcal Conjugate Vaccine [id number] Valent For Intramuscular Use 57768 Given 08/27/2018 Influenza Virus Vaccine, Pt. tolerated well. [id number] Quadrivalent, Split, Preservative Free 18193 Given 07/01/2018 Pneumonia Vaccine [id number] 48240 Given 07/17/2017 Influenza Virus Vaccine, Quadrivalent, Split, Preservative Free 84258 Given 07/15/2016 Influenza Virus Vaccine, [id number] Quadrivalent, Split, Preservative Free 34928 Given 08/03/2015 Influenza Virus Vaccine, No reaction noted [id number] Quadrivalent, Split, Preservative Free 59726 Given 06/05/2015 Tdap - Tetanus/Diptheria/Acellular Pertussis 65914 Given 07/21/2014 Influenza Virus Vaccine, [id number] Quadrivalent, Split, Preservative Free 21805 Refused 08/12/2013 Tdap - Tetanus/Diptheria/Acellular Pertussis [id number] Refused 08/12/2013 Flu Vaccine Split Virus Preservative Free For Indiv [id number] Older Vital Signs Date Vital Result Comment 08/26/2019 10:13am Height 63 inches 5'3" Weight 149.00 lb Heart Rate 74 /min BP Systolic Sitting 103 mmHg BP Diastolic Sitting 72 mmHg O2 % BldC Oximetry 99 % BMI (Body Mass Index) 26.4 kg/m2 07/15/2019 11:11am Height 63 inches 5'3" Weight 149.00 lb Heart Rate 72 /min BP Systolic Sitting 109 mmHg BP Diastolic Sitting 74 mmHg O2 % BldC Oximetry 98 % BMI (Body Mass Index) 26.4 kg/m2 Results Test Acquired Date Facility Test Result H/L Range Note CBC Auto 08/19/2019 [facility] White Blood 7.4 10^3/uL Normal 3.5-10.[address] [place] [address] [phone] Red Blood Count 3.55 10^6/uL Low 3.70-4.87 [...] Blood Cells % 0.0 Comp Metabolic 08/19/2019 [facility] Sodium 140 mmol/L Normal 135-[address] [place] [address] [phone] Chloride 107 mmol/L Normal 101-111 Co2 Carbon [...] 24 U/L Normal 13-39 Urinalysis Profile 08/19/2019 [facility] Urine Color Yellow [address] [place] [address] [phone] Urine Appearance Cloudy Urine Specific [place]enton 1.011 Normal 1.010-1.030 Urine pH 7.0 Normal [...] Present Abnormal Absent Urine Culture And 08/19/2019 [facility] Urine Culture SEE RESULT [address] [place] [address] [phone] Urinalysis Profile 06/02/2019 [facility] Urine Color Yellow [address] [place] [address] [phone] Urine Appearance Cloudy Urine Specific Benton 1.011 Normal 1.010-1.030 Urine pH 7.0 Normal [...] Present Abnormal Absent Urine Culture And 06/02/2019 [facility] Urine SEE RESULT [address] [place] [address] [phone] Comp Metabolic 06/02/2019 [facility] Sodium 139 mmol/L Normal 135-[address] [place] [address] [phone] Potassium 4.2 mmol/L Normal 3.5-5.0 Chloride 105 [...] Egfr 41.1 >60 4 Laboratory test 06/02/2019 [facility] Troponin-I 0.00 <0.04 [address] (TnI) ng/[place] [address] [phone] CBC Auto Diff 06/02/2019 [facility] White Blood 3.9 Normal 3.5 -10.[address] Count 10^3/[place] [address] [phone] Red Blood Count 3.70 10^6/uL Normal 3.70-4.87 [...] Red Blood Cells % 0.1 Inr/Protime 06/02/2019 [facility] Inr 0.91 Normal 0.82-1.[address] [place] [address] [phone] Laboratory 06/02/2019 [facility] Partial Thrombo 36.5 Normal 26.0-38.[address] [place] [address] [phone] Lipid Profile 06/02/2019 [facility] Triglycerides 306 mg/dL 7 (Trig/Chol/HDL [address] ) [place] [address] [phone] Cholesterol 164 mg/dL 8 HDL Cholesterol 65.0 mg/dL 9 LDL Cholesterol 38 mg/dL 10 Comp Metabolic 05/20/2019 [facility] Sodium 137 mmol/L Normal 135-[address] [place] [address] [phone] Potassium 4.6 mmol/L Normal 3.5-5.0 Chloride 105 [...] Non- 32.8 >60 Egfr 39.6 >60 12 Laboratory test 05/20/2019 [facility] C Reactive 6.73 mg/L Normal <8.01 finding [address] [facility] [place] [address] [phone] Anti Double Stranded Dna AB <12.3 IU/mL 13 Erythrocyte Sed Rate 47 mm/Hr High 0-29 Urinalysis Profile 05/20/2019 [facility] Urine Color Yellow [address] [place] [address] [phone] Urine Appearance Turbid Urine Specific Benton 1.011 Normal 1.010-1.030 Urine pH 8.0 Normal [...] Abnormal Absent Iron & Iron Binding 05/20/2019 [facility] Iron 53 g/dL Normal 50-212 Capacity [facility] [place] [address] [phone] Unsaturated Iron Binding < 279 g/dL Total Iron Binding Capacity 294 g/dL Normal 250-450 % Iron Saturation 18 % Normal 15-55 Laboratory test 05/20/2019 [facility] Ferritin 31.4 ng/mL Normal 11-307 finding [address] [place] [address] [phone] Transferrin 210 mg/dL Normal 203-362 Urine Culture And 05/20/2019 [facility] Urine SEE RESULT [address] [place] [address] [phone] CBC Auto Diff 05/20/2019 [facility] White Blood 3.3 10^3/uL Low 3.5-[address] Count 0.8 [place] [address] [phone] Red Blood Count 3.40 10^6/uL Low 3.70-4.87 [...] Blood Cells % 0.0 CBC Auto 04/26/2019 [facility] White Blood 4.1 10^3/uL Normal 3.5-10.[address] [place] [address] [phone] Red Blood Count 3.29 10^6/uL Low 3.70-4.87 [...] Red Blood Cells % 0.5 Inr/Protime 04/26/2019 [facility] Inr 0.86 Normal 0.82-1.[address] [place] [address] [phone] Laboratory test 04/26/2019 [facility] Partial 34.5 Normal 26.0 -38.[address] [place] [address] Time PTT [phone] Comp Metabolic 04/26/2019 [facility] Sodium 137 mmol/L Normal 135-[address] [place] [address] [phone] Potassium 4.3 mmol/L Normal 3.5-5.0 Chloride 106 [...] (or dialysis) 2 SEE RESULT BELOW Name: NEGRATHAIS Bernabe : [address]: Magen Christensen MD Acct: [id number] Unit: [id number] AGE: 59 Location: ED Re08/19/19 SEX: F Status: DEP ER SPEC: [id number] GENET: 08/19/[address] [facility] [address]: Magen Christensen MD REQ: [id number] RECD: 08/19/19 STATUS: MATTHEW MARTINEZ DR: Nabila Barrera MD _ SOURCE: URINE SPDESC: ORDERED: Urine Culture Procedure Result Reported Site Urine Culture Final 08/21/19937 ML Organism 1 CITROBACTER BRAAKII [place] Count 50-75,000 (Many) CFU/ML Organism 2 STREP GROUP B [place] Count 10-25,000 (Moderate) CFU/ML Susceptibility testing of penicillins and other B-lactams approved by FDA for treatment of Streptococcus pyogenes (Group A Strep) and Streptococcus agalactiae (Group B Strep) is not necessary for clinical purposes and need not be done routinely, since as with vancomycin, resistant strains have not been recognized. (CLSI N447-W37;p.66) Positive isolates will be saved for one week. Please call the Microbiology Laboratory if further susceptibility testing is needed. 1. CITROBACTER BRAAKII M.I.C. RX --------- ------ Cefazolin >=64 R Cefepime <=1 S Ceftriaxone <=1 S Ciprofloxacin <=0.25 S Gentamicin <=1 S Levofloxacin <=0.12 S Meropenem <=0.25 S Nitrofurantoin <=16 S Tetracycline <=1 S CONTINUED ON NEXT PAGE DEPARTMENT OF PATHOLOGY, [address] [place] [address] Edwin Chanel M.D. Director [facility] # [id number] Specimen: [id number] Collected: 08/19/19 Received: 08/19/19 (Continued) Procedure Result Reported Site Urine Culture Final (continued) 08/21/19937 1. CITROBACTER BRAAKII (continued) Julienne RX --------- ------ Pipercillin/Tazobactam <=4 S Trimethoprim/Sulfamethoxazole <=20 S Amoxicillin/Clavulanic Acid R Aztreonam <=1 S Contact the Microbiology Department for any additional antibiotic reporting. * ML - Main Lab . END OF REPORT DEPARTMENT OF PATHOLOGY, [address] [place] [address] Edwin Chanel M.D. Director [facility] # [id number] 3 SEE RESULT BELOW Name: THAIS RAO : [address]: Patricia Larsen MD Acct: [id number] Unit: [id number] AGE: 59 Location: [place] [id number] Re06/02/19 SEX: F Status: ADM Dorothy SPEC: [id number] GENET: 06/02/19 [facility] [address]: Gina Kyle MD REQ: [id number] RECD: 06/02/19 STATUS: MATTHEW MARTINEZ DR: Nabila Barrera MD _ SOURCE: URINE SPDESC: ORDERED: Urine Culture Procedure Result Reported Site Urine Culture Final 06/04/19- 1432 ML Organism 1 ESCHERICHIA COLI [place] Count >100,000 (Many) CFU/ML 1. ESCHERICHIA COLI [...] . END OF REPORT DEPARTMENT OF PATHOLOGY, [address] [place] [address] Edwin Chanel M.D. Director [facility] # [id number] 4 Because ethnic data is not always [...] immediately to secondary confirmatory testing. Using the tomoguides DxI 800 Access Immunoassay systems, the 99th [...] >189 11 pr denied urinary symptoms. 12 Because ethnic data is not always [...] 5 Kidney failure <15 (or dialysis) 13 REFERENCE VALUE <30.0 (Negative) Test Performed by: [facility] [address] [place] [address] 14 SEE RESULT BELOW Name: THAIS RAO : [address]: Cisco Mcfarland NP Acct: [id number] Unit: [id number] AGE: 59 Location: LAB Re05/20/19 SEX: F Status: REG REF SPEC: [id number] GENET: 05/20/19-10[address] [facility] [address]: Cisco Mcfarland NP REQ: [id number] RECD: 05/20/19 STATUS: COMP _ S[facility]: [facility] ORDERED: Urine Culture Procedure Result Reported Site Urine Culture Final 05/21/19- 1212 ML Organism 1 STREP GROUP B [place] Count >100,000 (Many) CFU/ML Susceptibility testing of penicillins and other B-lactams approved by FDA for treatment of Streptococcus pyogenes (Group A Strep) and Streptococcus agalactiae (Group B Strep) is not necessary for clinical purposes and need not be done routinely, since as with vancomycin, resistant strains have not been recognized. (CLSI Q425-B29;p.66) Positive isolates will be saved for one week. Please call the Microbiology Laboratory if further susceptibility testing is needed. * ML - Main Lab . END OF REPORT DEPARTMENT OF PATHOLOGY, [address] [place] [address] Edwin Chanel M.D. Director [facility] # [id number] 15 Standard intensity warfarin therapeutic range: 2.0-3.0 [...] dialysis) Procedures Date Code Description Status 06/16/2019 110023810 Diabetic Retinal Eye Exam Completed 06/04/2019 16582 EEG Recording Awake & Drowsy Completed 01/28/2019 169339669 Bone Mineral Density Test Completed 01/28/2019 91170915 Mammogram Completed 01/13/2018 90425232 Mammogram Completed 12/25/2017 752201344 Diabetic Retinal Eye Exam Completed 09/27/2016 59878089 Mammogram Completed 04/30/2016 667768213 Bone Mineral Density Test Completed 09/07/2015 25324648 Mammogram Completed 08/22/2014 57795470 Colonoscopy Completed 06/22/2014 50174594 Mammogram Completed 06/18/2013 01296890 Mammogram Completed 10/27/2009 70042884 Colonoscopy Completed Medical Devices Description No Information Available Encounters Type Date Location Provider Dx Diagnosis Office Visit 06/14/2019 [facility] Aiden Maciel Z87.440 Personal history 1:20p Infectious iTrso Mitchell of urinary (tract) Diseases infections R19.7 Diarrhea, unspecified Office Visit 06/04/2019 11:31a [facility] Scott I69.30 Unspecified Assoc,pc ANALI Perez sequelae [...] subjective visual disturbances Office Visit 06/03/2019 8:36a [facility] Scott Perez, R53.1 Weakness Assoc,pc [facility] [place] N18.3 Chronic kidney disease, stage 3 (moderate) G40.909 Epilepsy, unsp, not intractable, without status epilepticus N39.0 Urinary tract infection, site not specified M32.9 Systemic lupus erythematosus, unspecified Office Visit 06/02/2019 8:35a [facility] Patricia Larsen, R42 Dizziness and Assoc,teodora gallagher Hospitalists R53.1 Weakness N39.0 Urinary tract infection, site not specified Office Visit 05/11/2019 Rheumatology Zsofia M32.10 Systemic lupus 2:00p Services Of Herminio Mcfarland, TIRE MANAGER erythematosus, organ or system involv unsp D64.9 Anemia, unspecified 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 M25.571 Pain in right ankle and joints of right foot M79.604 Pain in right leg K59.03 Drug induced constipation Z79.899 Other terminal superintendent (current) drug therapy Assessments Date Code Description Provider 08/26/2019 N39.0 Urinary tract infection, site not [...] 05/11/2019 M32.10 Systemic lupus erythematosus, organ or Zsofia Bartolo, TIRE MANAGER system involvement un 05/11/2019 D64.9 Anemia, unspecified Zsofia Bartolo, TIRE MANAGER 05/11/2019 I69.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, TIRE MANAGER cerebral infarction aff 05/11/2019 M25.571 Pain in right ankle and joints of right Zsofia Bartolo, TIRE MANAGER foot 05/11/2019 M79.604 Pain in right leg RADHA Maravilla 05/11/2019 K59.03 Drug induced constipation RADHA Maravilla 05/11/2019 Z79.899 Other terminal superintendent (current) drug therapy RADHA Maravilla Plan of Treatment 08/26/2019 - Nabila Barrera M.D.N39.0 Urinary tract infection, site not qwoccnfbgY06.8 Other dfnpijjlbxtM06.03 Drug induced constipationNew Medication: Metamucil 0.52 gm - once a dayM79.671 Pain in right footZ23 Encounter for immunization Functional Status Functional Condition Comment Date Status Standard walker is used to ambulate Active Quad cane is used with the left hand to ambulate Active Mental Status Description No Information Available Referrals Description No Information Available
--- OUTSIDE RECORDS SUMMARY | 2019-10-25 01:11 | XMS REPORT ---
:1960 Author Organization [facility] Care Team Providers Name Role Phone Unavailable Unavailable Unavailable Problems Condition Condition Condition Status Onset Resolution Last Treating Comments Name Details Category Date Date Treatment Clinician Date Systemic Systemic Diagnosis Active 2016-10 Jenelle lupus lupus 10-27 Wing erythematos erythematos [id number] us, us, unspecified unspecified Pain in Pain in Diagnosis Active 2016-10 Jenelle right arm right arm 10-27 Wing [id number] Pain in Pain in Diagnosis Active 2016-10 Jenelle right lower right lower 10-27 Wing leg leg [id number] Contracture Contracture Diagnosis Active Jenelle , right , right 10-27 Maciej elbow elbow [id number] Urinary Urinary Diagnosis Active 2016-10 Jenelle tract tract 11-03 Maciej infection, infection, [id number] site not site not specified specified I12.9 I12.9 Diagnosis Active 2016-10 Jenelle 11-09 Wing [id number] Pain frequent Pain Mgmt Resolve 2016-102019-04-23 Maria A pain d 11-03 15:40:00 Jaquan 14:09: [id number] 00 Nutrition nutritional Nutrition Resolve 2016-102017-09-30 Maria A restriction d 11-03 14:00:00 Jaquan s 14:09: [id number] 00 Elimination knowledge/s Eliminatio Resolve 2016-102017-09-30 Maria A kill n d 11-03 14:00:00 Jaquan deficit: pt 14:09: [id number] 00 Elimination urinary Eliminatio Resolve 2016-102017-09-30 Maria A incontinenc n d 11-03 14:00:00 Jaquan e 14:09: [id number] 00 Elimination UTI within Eliminatio Resolve 2016-102017-09-30 Maria A past 14 n d 11-03 14:00:00 Jaquan days 14:09: [id number] 00 Activity ADL Activity Unknown 2016-10 Quality assistance 11-03 Realtime required 14:09: 00 Safety risk for Safety Resolve 2016-102017-09-23 Maria Aelva pendletoniza d 11-03 09:45:00 Jaquan tion 14:09: [id number] 00 Medication potential Meds Resolve 2016-102017-10-02 Maria A clinically d 11-03 13:30:00 Jaquan significant 14:09: [id number] medication 00 issue Medication oral med Meds Resolve 2016-102017-10-02 Maria A assistance d 11-03 13:30:00 Jaquan required 14:09: [id number] 00 Elimination recurring Eliminatio Resolve 2016-102017-09-30 Maria A UTI n d 11-10 14:00:00 Jaquan 14:00: [id number] 00 Safety risk for Safety Resolve 2016-102017-09-30 Maria A [facility] 11-25 14:00:00 Jaquan tion 11:04: [id number] 00 Nutrition nutritional Nutrition Resolve 2016-102017-10-07 Maria A restriction d 12-03 11:06:00 Jaquan s 13:30: [id number] 00 Elimination urinary Eliminatio Resolve 2016-102017-10-02 Maria A incontinenc n d 12-03 13:30:00 Jaquan e 13:30: [id number] 00 Safety risk for Safety Resolve 2016-102017-10-07 Maria A hospitaliza d 12-03 11:06:00 Jaquan tion 13:30: [id number] 00 Elimination urinary Eliminatio Resolve 2016-102017-10-28 Maria A incontinenc n d 12-22 09:32:00 Jaquan e 10:14: [id number] 00 Elimination constipatio Eliminatio Resolve 2016-102017-10-28 Maria A n n d 12-22 09:32:00 Jaquan 10:14: [id number] 00 Pain frequent Pain Mgmt Unknown Maria A pain 10-28 Jaquan 09:32: [id number] 00 Activity ADL Activity Resolve 2018-02-10 Maria A assistance d 10-28 11:05:00 Jaquan required 09:32: [id number] 00 Elimination urinary Eliminatio Resolve 2017-12-17 Mehnaz incontinenc n d 11-04 11:35:00 Ugalde e 13:15: [id number] 00 Safety risk for Safety Active Mehnaz hospitaliza 11-04 Ugalde tion 13:15: [id number] 00 Safety can be left Safety Active Mehnaz alone for 11-04 Ugalde only short 13:15: [id number] periods 00 Elimination urinary Eliminatio Resolve 2018-02-26 Maria A incontinenc n d 12-31 12:00:00 Jaquan e 10:00: [id number] 00 Medication oral med Meds Resolve 2018-02-26 Maria A assistance d 12-31 12:00:00 Jaquan required 10:00: [id number] 00 Medication injectable Meds Resolve 2018-02-26 Maria A med d 12-31 12:00:00 Jaquan assistance 10:00: [id number] required 00 Elimination constipatio Eliminatio Resolve 2018-02-26 Maria A n n d 01-20 12:00:00 Jaquan 11:19: [id number] 00 Safety fire risk Safety Active Maria A present 6-16 Eliz 12:00: [id number] 00 Elimination urinary Eliminatio Resolve 2018-09-03 Maria A incontinenc n d 04-16 11:30:00 Eliz e 11:56: [id number] 00 Medication oral med Meds Resolve 2018-12-24 Maria A assistance d 04-16 13:24:00 Elba required 11:56: [id number] 00 Safety fall risk Safety Active Maria A factor 830 Eliz present 14:00: [id number] 00 Pain frequent Pain Mgmt Unknown 2017-10 Maria A pain 10-28 Eliz 13:00: [id number] 00 Endo/López anti-coagul Endo/López Resolve 2017-102019-06-24 Maria A ation d 11-03 13:34:00 Eliz therapy 11:30: [id number] 00 Elimination urinary Eliminatio Resolve 2017-102019-02-22 Maria A incontinenc n d 14:30:00 Elba e 14:34: [id number] 00 Nutrition nutritional Nutrition Active Princess restriction 2-14 Alicia [place] 13:11: [id number] 00 Cardio chest pain Cardiovasc Active Maria A ular 12-24 Elba 13:24: [id number] 00 Elimination urinary Eliminatio Resolve 2019-08-19 Maria A incontinenc n d 04-23 13:50:00 Eliz e 15:40: [id number] 00 Safety can be left Safety Unknown Maria A alone for 04-23 Elba only short 15:40: [id number] periods 00 Pain frequent Pain Mgmt Resolve 2019-06-24 Kaye pain d 06-11 13:34:00 [place] 09:20: [id number] 00 Elimination UTI within Eliminatio Resolve 2019-08-19 Kaye past 14 n d 06-11 13:50:00 [place] days 09:20: [id number] 00 Elimination bowel Eliminatio Resolve 2019-08-19 Kaye incontinenc n d 06-11 13:50:00 [place] e 09:20: [id number] 00 Neuro confusion Neuro/Emot Active Kaye present ion 06-11 [place] 09:20: [id number] 00 Activity ADL Activity Unknown Kaye assistance 06-11 [place] required 09:20: [id number] 00 Activity self-care Activity Active Kaye deficit 06-11 [place] 09:20: [id number] 00 Medication oral med Meds Resolve 2019-06-24 Kaye assistance d 06-11 13:34:00 [place] required 09:20: [id number] 00 Musculoskel transfer Musculoske Active Kaye etal assistance letal 06-11 [place] required 09:20: [id number] 00 Musculoskel requires Musculoske Active Kaye etal human letal 06-11 [place] assist to 09:20: [id number] leave home 00 Activity ADL Activity Active Elizabeth A. assistance 07-08 [facility] required 14:57: e 00 [id number] Medication potential Meds Active Princess clinically 07-22 Seager significant 14:30: [id number] medication 00 issue Elimination urinary Eliminatio Active 2018-10 Maria A incontinenc n 11-02 Tree [facility] 11:[facility] [id number] Allergies, Adverse Reactions, Alerts Allergy Name Allergy Status Severity Reaction(s) Onset Inactive Treating Comments Type Date Date Clinician fentanyl Base Active Unknown Rash, Hives, 2016-10 Angy Ingredient itchy 11-11 Primitivo [id number] Sulfa Allergen Active Unknown Facial 2016-10 Angy (Sulfonamide Group Redness/ 11-11 Primitivo Antibiotics) Flushing [id number] baclofen Base Active Moderate Unknown 2016-10 Angy Ingredient -16 Primitivo [id number] nitrofuranto Base Active Unknown Reaction 2016-10 Angy in Ingredient Unknown 11-11 Primitivo [id number] rosuvastatin Base Active Unknown extreme Princess Ingredient fatigue and - Seager CP [id number] Medications Ordered Filled Start Stop Current Ordering Indication Dosage Frequency Signature Comments Components Medication Medication Date Date Medication? Clinician (SIG) Name Name amLODIPine amLODIPine 2016-10- Bruce / tab Unknown 5 mg tablet 5 mg [...] Unknown rine 10 mg rine 10 mg MD,Nabila tablet tablet baclofen 20 baclofen 20 No Barrera 1 tab Unknown mg tablet mg tablet ,Nabila baclofen 10 baclofen 10 No Harlene 2 tabs Unknown mg tablet mg tablet MD,Dirk (20 mg) famotidine famotidine No Harleen 20 mg Unknown 20 mg 20 mg MD,Dirk tablet tablet Pepcid 20 Pepcid 20 2016-10- No Barrera 20mg Unknown mg tablet mg tablet 11-03 Nabila BENSON amLODIPine amLODIPine 2016-10- No Barrera 1 tab Unknown 5 mg tablet 5 mg tablet 11-09 Nabila BENSON amLODIPine amLODIPine 2016-10- No Barrera 2.5 mg [...] Unknown al 64.8 mg al 64.8 mg 1- ,Nabila tablet tablet tablet levoFLOXaci levoFLOXaci 2017- [...] Unknown Dose 81 mg Dose 81 mg 0- MD,Nabila tablet,jorge tablet,jorge yed release yed release [...] tablet mg tablet J calcium calcium No Barrera Unknown Unknown carbonate carbonate 1-03 ,Nabila 600 600 mg(1,500 mg(1,500 mg)-vitamin mg)-vitamin D3 800 unit D3 800 unit chewable chewable tablet tablet rosuvastati rosuvastati 2018- No Jose Maria Unknown Unknown n 5 mg n 5 mg 11-13 ,Kerry tablet tablet hydroxychlo hydroxychlo 2017-10- No Vi Unknown Unknown roquine 200 roquine 200 2-16 05-17 Jr,Alonzo mg tablet mg tablet J Pepcid 20 Pepcid 20 2016-10 No Barrera Unknown Unknown mg tablet mg tablet 1-08 Nabila BENSON rosuvastati rosuvastati No Linn Unknown Unknown n 5 mg n 5 mg 4-11 MD,Kerry tablet tablet hydroxychlo hydroxychlo No Vi Unknown Unknown roquine 200 roquine 200 -17 Jr,Alonzo mg tablet mg tablet J aspirin 325 aspirin 325 No Barrera Unknown Unknown mg tablet mg tablet 06-11 Nabila BENSON lisinopril lisinopril 2018- No Bruce Unknown Unknown 5 mg tablet 5 mg tablet 06-11 Nabila BENSON Privinil Privinil 2018-10 Yes Bruce Unknown Unknown 0-03 Nabila BENSON Vital Signs Vital Name Observation Time Observation Value Comments SYSTOLIC mm[Hg] 2019-09-12 18:08:54 100 mm[Hg] mm[Hg] Method: Sit SYSTOLIC mm[Hg] 2019-06-11 18:07:21 134 mm[Hg] mm[Hg] Method: Stand SYSTOLIC mm[Hg] 2019-08-19 18:08:30 106 mm[Hg] mm[Hg] Method: Lie DIASTOLIC mm[Hg] 2019-09-12 18:08:54 58 mm[Hg] mm[Hg] Method: Sit DIASTOLIC mm[Hg] 2019-06-11 18:07:21 76 mm[Hg] mm[Hg] Method: Stand DIASTOLIC mm[Hg] 2019-08-19 18:08:30 72 mm[Hg] mm[Hg] Method: Lie PULSE 2019-09-12 18:08:54 76 /min /min RESP RATE 2019-09-12 18:08:54 16 /min /min TEMP 2019-09-12 18:08:54 98.4 [degF] Procedures This patient has no known procedures. Results This patient has no known results.
--- NOTE | 2019-10-25 01:26 | ED ---
Skin Complaint - HPI Summary HPI Summary: The patient is a 59 y/o F presenting with painful abscess posterior to the left ear onset about a week ago. She denies any fevers or discharge. Sharp pain currently rated 8/10 in severity. Pain aggravated by touch and alleviated by nothing. 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 PMHx: Lupus, anemia, DVT, CVA, TIA, HTN, seizures. Former smoker, no EtOH, no substance use. Medications reviewed. Allergies noted. - History of Current Complaint Chief Complaint: EDRashSkinAbscess Time Seen by Provider: 10/25/19 01:17 Stated Complaint: NECK PAIN PER PT Hx Obtained From: Patient Onset/Duration: Started Days Ago - one week, Still Present Skin Exposure Onset/Duration: Days Ago Timing: Constant Onset Severity: Mild Current Severity: Moderate Pain Intensity: 8 Pain Scale Used: 0-10 Numeric Skin Location: Other: - posterior to left ear Character: Pain Aggravating Symptom(s): Touch Alleviating Symptom(s): Nothing Associated Signs & Symptoms: Negative - Additional Pertinent History Primary Care Physician: FLORA - Allergy/Home Medications Allergies/Adverse Reactions: Allergies Allergy/AdvReac Type Severity Reaction Status Date / Time fentanyl Allergy rash, Verified 10/25/19 01:00 hives, itchy Sulfa (Sulfonamide Allergy Facial Verified 10/25/19 01:00 Antibiotics) Redness/Flushing baclofen AdvReac Intermediate Altered Verified 10/25/19 01:00 Mental Status nitrofurantoin AdvReac Intermediate Leukopenia/ Verified 10/25/19 01:00 neutropenia PMH/Surg Hx/FS Hx/Imm Hx Endocrine/Hematology History: Reports: Hx Anticoagulant Therapy, Hx Systemic Lupus Erythematosus, Hx Thyroid Disease - THYROIDECTOMY, Hx Anemia - HISTORY Denies: Hx Bone Marrow Disease, Hx Diabetes, Hx Sickle Cell Disease Cardiovascular History: Reports: Hx Angina, Hx Deep Vein Thrombosis, Hx Hypertension, Hx Syncope, Other Cardiovascular Problems/Disorders - STROKE Denies: Hx Congestive Heart Failure, Hx Myocardial Infarction, Hx Pacemaker/ ICD, Hx Rheumatic Fever, Hx Valvular Heart Disease Comment Only: Hx Hypercholesterolemia - unkown Respiratory History: Reports: Hx Pulmonary Embolism Denies: Hx Asthma, Hx Sleep Apnea, Other Respiratory Problems/Disorders GI History: Reports: Hx Gastroesophageal Reflux Disease, Hx Hiatal Hernia, Hx Irritable Bowel Denies: Hx Jaundice History: Reports: Hx Chronic Renal Failure - stage 2, Hx Kidney Infection, Other Problems/Disorders - UTI, vag abscess. SEES DR. 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, Hx Hearing Problem - right hear clogged, Other Sensory Impairments - right hemiparesis secondary to CVA Hx Denies: Hx Glaucoma, Hx Hearing Aid Opthamlomology History: Reports: Hx Cataracts, Hx Contacts or Glasses - GLASSES SOMETIMES, Other Sensory Impairments - 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 HYSTERECTOMY;. OOPHERECTOMY;. VAGINAL ABSCESS I&D. BREAST SURGERY Hx Anesthesia Reactions: No - Immunization History Date of Tetanus Vaccine: unk Date of Influenza Vaccine: unk Infectious Disease History: No Infectious Disease History: Reports: Hx of Known/Suspected MRSA - patient does not remember, Hx Shingles Denies: Hx Clostridium Difficile, Hx Hepatitis, Hx Tuberculosis, Hx Known/ Suspected VRE, Hx Known/Suspected VRSA, Traveled Outside the [place] in Last 30 Days - Family History Known Family History: Positive: Cardiac Disease, Hypertension, Diabetes - Social History Alcohol Use: None Hx Substance Use: No Substance Use Type: Reports: None Hx Tobacco Use: No Smoking Status (MU): Former Smoker Amount Used/How Often: only smoked for weeks Have You Smoked in the Last Year: No Review of Systems Negative: Fever Positive: Other - pain behind left ear with bump; Negative: discharge from abscess All Other Systems Reviewed And Are Negative: Yes Physical Exam - Summary Physical Exam Summary: Appearance: Well-appearing, Well-nourished, lying in bed comfortable Skin: Warm, dry, no obvious rash, Dime-sized abscess near the left mastoid process Eyes: sclera anicteric, no conjunctival pallor ENT: mucous membranes moist Neck: deferred Respiratory: No signs of respiratory distress Cardiovascular: Appears well perfused, pulses are nml Abdomen: deferred Musculoskeletal: Moving all 4 extremities without obvious discomfort Neurological: Awake and alert, mentation is normal, speech is fluent and appropriate Psychiatric: affect is normal, does not appear anxious or depressed Triage Information Reviewed: Yes Vital Signs On Initial Exam: Initial Vitals Temp Pulse Resp BP Pulse Ox 97.3 F 75 12 127/78 100 10/25/19 00:58 10/25/19 00:58 10/25/19 00:58 10/25/19 00:58 10/25/19 00:58 Vital Signs Reviewed: Yes Procedures - Sedation Patient Received Moderate/Deep Sedation with Procedure: No - Incision and Drainage Left Mastoid Process Site: near left mastoid process Anesthesia: Lidocaine - 1% Instrument(s): Scalpel - 11 Diagnostics - Vital Signs Vital Signs Temp Pulse Resp BP Pulse Ox 10/25/19 00:58 97.3 F 75 12 127/78 100 - Laboratory Lab Statement: Any lab studies that have been ordered have been reviewed, and results considered in the medical decision making process. Course/Dx - Course Course Of Treatment: 59 y/o F presenting with painful abscess posterior to the left ear onset about a week ago without any fevers or discharge. Physical exam reveals dime-sized abscess near the left mastoid process. I&D of abscess (see procedure note); small amount of sebum and pus drained. Patient administered Bactrim. Patient understands and agrees with discharge plan. Rx for Bactrim. Dx abscess. - Diagnoses Provider Diagnoses: Abscess Discharge ED - Sign-Out/Discharge Documenting (check all that apply): Patient Departure - Patient will be dischargd home. - Discharge Plan Condition: Good Disposition: HOME Prescriptions: Sulfamethox/Trimethoprim DS* [Bactrim DS 800/160 TAB*] 1 tab PO BID #10 tab Patient Education Materials: Abscess (ED) Referrals: Rigo Monaco MD [Medical Doctor] - Additional Instructions: If the area does not seem to be healing make an appt with one of our general surgeons, as you might need a bigger procedure like an excision of the cyst. Tonight there will be some drainage and bleeding but that should seal up by the afternoon. You can take the pain medication as needed, and fill the antibiotic. - Billing Disposition and Condition Condition: GOOD Disposition: Home - Attestation Statements Document Initiated by Ophelia: Yes Documenting Scribe: Tawanna Amos Provider For Whom Ophelia is Documenting (Include Credential): Dr. Abdirizak Sheppard MD Scribe Attestation: I, Tawanna mAos scribed for Dr. Abdirizak Sheppard MD on 10/25/19 at 0612. Scribe Documentation Reviewed: Yes Provider Attestation: The documentation as recorded by the Tawanna agustin accurately reflects the service I personally performed and the decisions made by me, Dr. Abdirizak Sheppard MD Status of Ophelia Document: Viewed
[2019-10-25] MEDS ORDERED: Sulfamethox/Trimethoprim DS 800/160* TAB PO ONE (01:29)
== END 2019-10-25 01:49 | disposition home or self-care (01) ==
LOC: ED 00:56
DX: H60.02 Abscess of left external ear (principal); M32.9 Systemic lupus erythematosus, unspecified; K21.9 Gastro-esophageal reflux disease without esophagitis; I12.9 Hypertensive chronic kidney disease with stage 1 through stage 4 chronic kidney disease, or unspecified chronic kidney disease; N18.2 Chronic kidney disease, stage 2 (mild); I69.951 Hemiplegia and hemiparesis following unspecified cerebrovascular disease affecting right dominant side; F41.9 Anxiety disorder, unspecified; F32.9 Major depressive disorder, single episode, unspecified; Z87.891 Personal history of nicotine dependence; Z86.711 Personal history of pulmonary embolism; Z96.643 Presence of artificial hip joint, bilateral; Z90.710 Acquired absence of both cervix and uterus; Z90.721 Acquired absence of ovaries, unilateral; Z88.1 Allergy status to other antibiotic agents; Z88.5 Allergy status to narcotic agent; Z88.2 Allergy status to sulfonamides; Z88.8 Allergy status to other drugs, medicaments and biological substances
CPT/HCPCS: 10060; 69000; 99282; A9270-GY

== ENCOUNTER 2019-12-15 16:58 | Emergency (ER) | payer MEDICARE, MEDICAID, OTHER ==
--- OUTSIDE RECORDS SUMMARY | 2019-12-15 17:08 | XMS REPORT ---
:1960 Author Organization [facility] Care Team Providers Name Role Phone Unavailable Unavailable Unavailable Problems Condition Condition Condition Status Onset Resolution Last Treating Comments Name Details Category Date Date Treatment Clinician Date Systemic Systemic Diagnosis Active 2016-10 Jenelle lupus lupus 10-27 Wing erythematos erythematos [id number] us, us, unspecified unspecified Pain in Pain in Diagnosis Active 2016-10 Jenelle right arm right arm 10-27 Wing [id number] Pain in Pain in Diagnosis Active 2016-10 Jenelle right lower right lower 10-27 Wing leg leg [id number] Contracture Contracture Diagnosis Active Jenelle , right , 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 [id number] Urinary Urinary Diagnosis Active 2016-10 Jenelle tract tract 11-03 Wing infection, infection, [id number] site not site not specified specified Hypertensiv Hypertensiv Diagnosis Active 2016-10 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 kdny chr kdny 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, disease, [id number] stage 2 stage 2 (mild) (mild) 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, disorder, [id number] single single episode, episode, unspecified unspecified Spinal Spinal Diagnosis Active Jenelle stenosis, stenosis, Wign site site [id number] unspecified unspecified 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, hip joint, [id number] bilateral bilateral Epilepsy, Epilepsy, Diagnosis Active Jenelle unsp, not unsp, not Wing intractable intractable [id number] , without , without status status epilepticus epilepticus 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 [id number] Pain frequent Pain Mgmt Resolve 2016-102019-04-23 Maria A pain d 11-03 15:40:00 Jaquan 14:09: [id number] 00 Nutrition nutritional Nutrition Resolve 2016-102017-09-30 Maria A restriction d 11-03 14:00:00 Jaquan s 14:09: [id number] 00 Elimination knowledge/s Eliminatio Resolve 2016-102017-09-30 Maria A kill n d 11-03 14:00:00 Jaquan deficit: pt 14:09: [id number] 00 Elimination urinary Eliminatio Resolve 2016-102017-09-30 Maria A incontinenc n d 11-03 14:00:00 Jaquan e 14:09: [id number] 00 Elimination UTI within Eliminatio Resolve 2016-102017-09-30 Maria A past 14 n d 11-03 14:00:00 Jaquan days 14:09: [id number] 00 Activity ADL Activity Unknown 2016-10 Quality assistance 11-03 Realtime required 14:09: 00 Safety risk for Safety Resolve 2016-102017-09-23 Maria A hospitaliza d 11-03 09:45:00 Jaquan tion 14:09: [id number] 00 Medication potential Meds Resolve 2016-102017-10-02 Maria A clinically d 11-03 13:30:00 Jaquan significant 14:09: [id number] medication 00 issue Medication oral med Meds Resolve 2016-102017-10-02 Maria A assistance d 11-03 13:30:00 Jaquan required 14:09: [id number] 00 Elimination recurring Eliminatio Resolve 2016-102017-09-30 Maria A UTI n d 11-10 14:00:00 Jaquan 14:00: [id number] 00 Safety risk for Safety Resolve 2016-102017-09-30 Maria A hospitaliza d 11-25 14:00:00 Jaquan tion 11:04: [id number] 00 Nutrition nutritional Nutrition Resolve 2016-102017-10-07 Maria A restriction d 12-03 11:06:00 Jaquan s 13:30: [id number] 00 Elimination urinary Eliminatio Resolve 2016-102017-10-02 Maria A incontinenc n d 12-03 13:30:00 Jaquan e 13:30: [id number] 00 Safety risk for Safety Resolve 2016-102017-10-07 Maria A hospitaliza d 12-03 11:06:00 Jaquan tion 13:30: [id number] 00 Elimination urinary Eliminatio Resolve 2016-102017-10-28 Maria A incontinenc n d 12-22 09:32:00 Jaquan e 10:14: [id number] 00 Elimination constipatio Eliminatio Resolve 2016-102017-10-28 Maria A n n d 12-22 09:32:00 Jaquan 10:14: [id number] 00 Pain frequent Pain Mgmt Unknown Maria A pain 10-28 Jaquan 09:32: [id number] 00 Activity ADL Activity Resolve 2018-02-10 Maria A assistance d 10-28 11:05:00 Jaquan required 09:32: [id number] 00 Elimination urinary Eliminatio Resolve 2017-12-17 Mehnaz incontinenc n d 11-04 11:35:00 Ugalde e 13:15: [id number] 00 Safety risk for Safety Active Mehnaz hospitaliza 11-04 Ugalde tion 13:15: [id number] 00 Safety can be left Safety Active Mehnaz alone for 11-04 Ugalde only short 13:15: [id number] periods 00 Elimination urinary Eliminatio Resolve 2018-02-26 Maria A incontinenc n d 12-31 12:00:00 Jaquan e 10:00: [id number] 00 Medication oral med Meds Resolve 2018-02-26 Maria A assistance d 12-31 12:00:00 Jaquan required 10:00: [id number] 00 Medication injectable Meds Resolve 2018-02-26 Maria A med d 12-31 12:00:00 Jaquan assistance 10:00: [id number] required 00 Elimination constipatio Eliminatio Resolve 2018-02-26 Maria A n n d 01-20 12:00:00 Jaquan 11:19: [id number] 00 Safety fire risk Safety Active Maria A present 04-11 Eliz 12:00: [id number] 00 Elimination urinary Eliminatio Resolve 2018-09-03 Maria A incontinenc n d 04-16 11:30:00 [place] e 11:56: [id number] 00 Medication oral med Meds Resolve 2018-12-24 Maria A assistance d 04-16 13:24:00 [place] required 11:56: [id number] 00 Safety fall risk Safety Active Maria A factor 06-25 Eliz present 14:00: [id number] 00 Pain frequent Pain Mgmt Unknown 2017-10 Maria A pain 10-28 Eliz 13:00: [id number] 00 Endo/López anti-coagul Endo/López Resolve 2017-102019-06-24 Maria A ation d 11-03 13:34:00 [place] therapy 11:30: [id number] 00 Elimination urinary Eliminatio Resolve 2017-102019-02-22 Maria A incontinenc n d 14:30:00 Eliz e 14:34: [id number] 00 Nutrition nutritional Nutrition Active Princess restriction 2-14 Seager s 13:11: [id number] 00 Cardio chest pain Cardiovasc Resolve 2019-09-16 Maria A ular d 12-24 13:52:00 [place] 13:24: [id number] 00 Elimination urinary Eliminatio Resolve 2019-08-19 Maria A incontinenc n d 04-23 13:50:00 Eliz e 15:40: [id number] 00 Safety can be left Safety Unknown Maria A alone for 04-23 Eliz only short 15:40: [id number] periods 00 Pain frequent Pain Mgmt Resolve 2019-06-24 Kaye pain d 16 13:34:00 Alden 09:20: [id number] 00 Elimination UTI within Eliminatio Resolve 2019-08-19 Kaye past 14 n d 06-11 13:50:00 Alden days 09:20: [id number] 00 Elimination bowel Eliminatio Resolve 2019-08-19 Kaye incontinenc n d 06-11 13:50:00 Alden e 09:20: [id number] 00 Neuro confusion Neuro/Emot Active Kaye present ion 06-11 Alden 09:20: [id number] 00 Activity ADL Activity Unknown Kaye assistance 06-11 Alden required 09:20: [id number] 00 Activity self-care Activity Active Kaye deficit 06-11 Alden 09:20: [id number] 00 Medication oral med Meds Resolve 2019-06-24 Kaye assistance d 06-11 13:34:00 Alden required 09:20: [id number] 00 Musculoskel transfer Musculoske Resolve 2019-09-16 Kaye etal assistance letal d 06-11 13:52:00 Alden required 09:20: [id number] 00 Musculoskel requires Musculoske Resolve 2019-09-16 Kaye etal human letal d 06-11 13:52:00 Alden assist to 09:20: [id number] leave home 00 Activity ADL Activity Active Elizabeth A. assistance 07-08 [facility] required 14:57: e 00 [id number] Medication potential Meds Active Princess clinically 07-22 Seager significant 14:30: [id number] medication 00 issue Elimination urinary Eliminatio Resolve 2018-102019-09-16 Maria A incontinenc n d 11-02 13:52:00 Tree e 11:45: [employer] 00 [id number] Elimination urinary Eliminatio Active 2018-10 Maria A incontinenc n 12-01 Tree e 10:32: [employer] 00 [id number] Allergies, Adverse Reactions, Alerts Allergy Name Allergy Status Severity Reaction(s) Onset Inactive Treating Comments Type Date Date Clinician fentanyl Base Active Unknown Rash, Hives, 2016-10 Angy Ingredient itchy -16 Primitivo [id number] Sulfa Allergen Active Unknown Facial 2016-10 Angy (Sulfonamide Group Redness/ -16 Primitivo Antibiotics) Flushing [id number] baclofen Base Active Moderate Unknown 2016-10 Angy Ingredient 1-16 Primitivo [id number] nitrofuranto Base Active Unknown Reaction 2016-10 Angy in Ingredient Unknown 11-11 Primitivo [id number] rosuvastatin Base Active Unknown extreme Princess Ingredient fatigue and 2- Seager CP [id number] Medications Ordered Filled Start Stop Current Ordering [...] Unknown HCl 300 mg HCl 300 mg 0-18 08- ,Nabila capsule capsule Floranex 1 Floranex 1 2017-10- No Barrera Unknown Unknown million million 0- 11- ,Nabila cell tablet cell tablet oxyCODONE-a oxyCODONE-a 2017-10 No Bruce Unknown Unknown cetaminophe cetaminophe 0- ,Nabila n 5 mg-325 n 5 mg-325 mg tablet mg tablet hydroxychlo hydroxychlo 2017-10- No Vi Unknown Unknown roquine 200 roquine 200 2-11-12 Jr,Alonzo mg tablet mg tablet J calcium calcium No Bruce Unknown Unknown carbonate carbonate 1- ,Nabila 600 600 mg(1,500 mg(1,500 mg)-vitamin mg)-vitamin D3 800 unit D3 800 unit chewable chewable tablet tablet rosuvastati rosuvastati 2018- No Tucker Unknown Unknown n 5 mg n 5 mg 11-13- ,Kerry tablet tablet hydroxychlo hydroxychlo 2017-10- No Vi Unknown Unknown roquine 200 roquine 200 2- 07-17 Jr,Alonzo mg tablet mg tablet J Pepcid 20 Pepcid 20 2016-10 No Bruce Unknown Unknown mg tablet mg tablet 11-03 ,Nabila rosuvastati rosuvastati No Tucker Unknown Unknown n 5 mg n 5 mg 4-11 ,Kerry tablet tablet hydroxychlo hydroxychlo No Vi Unknown Unknown roquine 200 roquine 200 7-17 Jr,Alonzo mg tablet mg tablet J aspirin 325 aspirin 325 No Bruce Unknown Unknown mg tablet mg tablet 8- Nabila BENSON lisinopril lisinopril 2018- No Barrera Unknown Unknown 5 mg tablet 5 mg tablet 06-11 10- ,Nabila Privinil Privinil 2018-10 No Barrera Unknown Unknown 0-03 ,Nabila sulfamethox sulfamethox 2018-10 Yes [place] Unknown Unknown azole 400 azole 400 2-30 MD,Abdirizak mg-trimetho mg-trimetho prim 80 mg prim 80 mg tablet tablet Vital Signs Vital Name Observation Time Observation Value Comments SYSTOLIC mm[Hg] 2019-11-25 18:10:08 112 mm[Hg] mm[Hg] Method: Sit SYSTOLIC mm[Hg] 2019-06-11 18:07:21 134 mm[Hg] mm[Hg] Method: Stand SYSTOLIC mm[Hg] 2019-08-19 18:08:30 106 mm[Hg] mm[Hg] Method: Lie DIASTOLIC mm[Hg] 2019-11-25 18:10:08 74 mm[Hg] mm[Hg] Method: Sit DIASTOLIC mm[Hg] 2019-06-11 18:07:21 76 mm[Hg] mm[Hg] Method: Stand DIASTOLIC mm[Hg] 2019-08-19 18:08:30 72 mm[Hg] mm[Hg] Method: Lie PULSE 2019-11-25 18:10:08 88 /min /min RESP RATE 2019-11-25 18:10:08 18 /min /min TEMP 2019-11-25 18:10:08 97.8 [degF] Procedures This patient has no known procedures. Results This patient has no known results.
--- OUTSIDE RECORDS SUMMARY | 2019-12-15 17:08 | XMS REPORT ---
:1960 Author Organization [facility] Care Team Providers Name Role Phone Unavailable Unavailable Unavailable Problems Condition Condition Condition Status Onset Resolution Last Treating Comments Name Details Category Date Date Treatment Clinician Date Systemic Systemic Diagnosis Active 2016-10 Jenelle lupus lupus 10-27 Wing erythematos erythematos [id number] us, us, unspecified unspecified Pain in Pain in Diagnosis Active 2016-10 Jenelle right arm right arm 10-27 Wing [id number] Pain in Pain in Diagnosis Active 2016-10 Jenelle right lower right lower 10-27 Wing leg leg [id number] Contracture Contracture Diagnosis Active Jenelle , right , 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 [id number] Urinary Urinary Diagnosis Active 2016-10 Jenelle tract tract 11-03 Wing infection, infection, [id number] site not site not specified specified Hypertensiv Hypertensiv Diagnosis Active 2016-10 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 [id number] disease w disease w stg stg 1-4/unsp 1-4/unsp chr kdny chr kdny 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, disease, [id number] stage 2 stage 2 (mild) (mild) 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, disorder, [id number] single single episode, episode, unspecified unspecified Spinal Spinal Diagnosis Active Jenelle stenosis, stenosis, Wing site site [id number] unspecified unspecified 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, hip joint, [id number] bilateral bilateral Epilepsy, Epilepsy, Diagnosis Active Jenelle unsp, not unsp, not Wing intractable intractable [id number] , without , without status status epilepticus epilepticus 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 [id number] Pain frequent Pain Mgmt Resolve 2016-102019-04-23 Maria A pain d 11-03 15:40:00 Jaquan 14:09: [id number] 00 Nutrition nutritional Nutrition Resolve 2016-102017-09-30 Maria A restriction d 11-03 14:00:00 Jaquan s 14:09: [id number] 00 Elimination knowledge/s Eliminatio Resolve 2016-102017-09-30 Maria A kill n d 11-03 14:00:00 Jaquan deficit: pt 14:09: [id number] 00 Elimination urinary Eliminatio Resolve 2016-102017-09-30 Maria A incontinenc n d 11-03 14:00:00 Jaquan e 14:09: [id number] 00 Elimination UTI within Eliminatio Resolve 2016-102017-09-30 Maria A past 14 n d 11-03 14:00:00 Jaquan days 14:09: [id number] 00 Activity ADL Activity Unknown 2016-10 Quality assistance 11-03 Realtime required 14:09: 00 Safety risk for Safety Resolve 2016-102017-09-23 Maria A hospitaliza d 11-03 09:45:00 Jaquan tion 14:09: [id number] 00 Medication potential Meds Resolve 2016-102017-10-02 Maria A clinically d 11-03 13:30:00 Jaquan significant 14:09: [id number] medication 00 issue Medication oral med Meds Resolve 2016-102017-10-02 Maria A assistance d 11-03 13:30:00 Jaquan required 14:09: [id number] 00 Elimination recurring Eliminatio Resolve 2016-102017-09-30 Maria A UTI n d 11-10 14:00:00 Jaquan 14:00: [id number] 00 Safety risk for Safety Resolve 2016-102017-09-30 Maria A hospitaliza d 11-25 14:00:00 Jaquan tion 11:04: [id number] 00 Nutrition nutritional Nutrition Resolve 2016-102017-10-07 Maria A restriction d 12-03 11:06:00 Jaquan s 13:30: [id number] 00 Elimination urinary Eliminatio Resolve 2016-102017-10-02 Maria A incontinenc n d 12-03 13:30:00 Jaquan e 13:30: [id number] 00 Safety risk for Safety Resolve 2016-102017-10-07 Maria A hospitaliza d 12-03 11:06:00 Jaquan tion 13:30: [id number] 00 Elimination urinary Eliminatio Resolve 2016-102017-10-28 Maria A incontinenc n d 12-22 09:32:00 Jaquan e 10:14: [id number] 00 Elimination constipatio Eliminatio Resolve 2016-102017-10-28 Maria A n n d 12-22 09:32:00 Jaquan 10:14: [id number] 00 Pain frequent Pain Mgmt Unknown Maria A pain 10-28 Jaquan 09:32: [id number] 00 Activity ADL Activity Resolve 2018-02-10 Maria A assistance d 10-28 11:05:00 Jaquan required 09:32: [id number] 00 Elimination urinary Eliminatio Resolve 2017-12-17 Mehnaz incontinenc n d 11-04 11:35:00 Ugalde e 13:15: [id number] 00 Safety risk for Safety Active Mehnaz hospitaliza 11-04 Ugalde tion 13:15: [id number] 00 Safety can be left Safety Active Mehnaz alone for 11-04 Ugalde only short 13:15: [id number] periods 00 Elimination urinary Eliminatio Resolve 2018-02-26 Maria A incontinenc n d 12-31 12:00:00 Jaquan e 10:00: [id number] 00 Medication oral med Meds Resolve 2018-02-26 Maria A assistance d 12-31 12:00:00 Jaquan required 10:00: [id number] 00 Medication injectable Meds Resolve 2018-02-26 Maria A med d 12-31 12:00:00 Jaquan assistance 10:00: [id number] required 00 Elimination constipatio Eliminatio Resolve 2018-02-26 Maria A n n d 01-20 12:00:00 Jaquan 11:19: [id number] 00 Safety fire risk Safety Active Maria A present 04-11 Eliz 12:00: [id number] 00 Elimination urinary Eliminatio Resolve 2018-09-03 Maria A incontinenc n d 04-16 11:30:00 Foster e 11:56: [id number] 00 Medication oral med Meds Resolve 2018-12-24 Maria A assistance d 04-16 13:24:00 Eliz required 11:56: [id number] 00 Safety fall risk Safety Active Maria A factor 06-25 Foster present 14:00: [id number] 00 Pain frequent Pain Mgmt Unknown 2017-10 Maria A pain 10-28 Foster 13:00: [id number] 00 Endo/López anti-coagul Endo/López Resolve 2017-102019-06-24 Maria A ation d 11-03 13:34:00 Foster therapy 11:30: [id number] 00 Elimination urinary Eliminatio Resolve 2017-102019-02-22 Maria A incontinenc n d 14:30:00 Eliz e 14:34: [id number] 00 Nutrition nutritional Nutrition Active Princess restriction 2-14 Seager s 13:11: [id number] 00 Cardio chest pain Cardiovasc Resolve 2019-09-16 Maria A ular d 12-24 13:52:00 Eliz 13:24: [id number] 00 Elimination urinary Eliminatio Resolve 2019-08-19 Maria A incontinenc n d 04-23 13:50:00 Eliz e 15:40: [id number] 00 Safety can be left Safety Unknown Maria A alone for 04-23 Eliz only short 15:40: [id number] periods 00 Pain frequent Pain Mgmt Resolve 2019-06-24 Kaye pain d 16 13:34:00 Millen 09:20: [id number] 00 Elimination UTI within Eliminatio Resolve 2019-08-19 Kaye past 14 n d 06-11 13:50:00 Millen days 09:20: [id number] 00 Elimination bowel Eliminatio Resolve 2019-08-19 Kaye incontinenc n d 06-11 13:50:00 Millen e 09:20: [id number] 00 Neuro confusion Neuro/Emot Active Kaye present ion 06-11 Millen 09:20: [id number] 00 Activity ADL Activity Unknown Kaye assistance 06-11 Millen required 09:20: [id number] 00 Activity self-care Activity Active Kaye deficit 06-11 Millen 09:20: [id number] 00 Medication oral med Meds Resolve 2019-06-24 Akye assistance d 06-11 13:34:00 Millen required 09:20: [id number] 00 Musculoskel transfer Musculoske Resolve 2019-09-16 Kaye etal assistance letal d 06-11 13:52:00 Millen required 09:20: [id number] 00 Musculoskel requires Musculoske Resolve 2019-09-16 Kaye etal human letal d 06-11 13:52:00 Millen assist to 09:20: [id number] leave home 00 Activity ADL Activity Active Elizabeth A. assistance 07-08 [facility] required 14:57: e 00 [id number] Medication potential Meds Active Princess clinically 07-22 Seager significant 14:30: [id number] medication 00 issue Elimination urinary Eliminatio Resolve 2018-102019-09-16 Maria A incontinenc n d 1-07 13:52:00 Tree e 11:45: [employer] 00 [id number] Elimination urinary Eliminatio Resolve 2018-102019-12-09 Maria A incontinenc n d 205 11:10:00 Tree e 10:32: [employer] 00 [id number] Allergies, Adverse Reactions, Alerts Allergy Name Allergy Status Severity Reaction(s) Onset Inactive Treating Comments Type Date Date Clinician fentanyl Base Active Unknown Rash, Hives, 2016-10 Angy Ingredient itchy -16 Primitivo [id number] Sulfa Allergen Active Unknown Facial 2016-10 Angy (Sulfonamide Group Redness/ -16 Primitivo Antibiotics) Flushing [id number] baclofen Base Active Moderate Unknown 2016-10 Angy Ingredient 1-16 Primitivo [id number] nitrofuranto Base Active Unknown Reaction 2016-10 Angy in Ingredient Unknown 11-11 Primitivo [id number] rosuvastatin Base Active Unknown extreme Princess Ingredient fatigue and 12-10 Alicia TAYLOR [id number] Medications Ordered Filled Start Stop Current Ordering [...] tablet 11-03 Nabila BENSON PHENobarbit PHENobarbit 2016-10- No Barrera 60 mg Unknown al 60 mg [...] mg tablet 11-03 Nabila BENSON amLODIPine amLODIPine 2016-10 No Bruce 1 tab Unknown 5 mg tablet 5 mg tablet 11-09 Nabila BENSON amLODIPine amLODIPine 2016-10 No Barrera 2.5 mg [...] Unknown Unknown 10 mg 10 mg 0- ,Nabila tablet tablet Tylenol 8 Tylenol 8 2017-10 No Barrera Unknown Unknown Hour 650 mg Hour 650 mg 0- ,Nabila tablet,exte tablet,exte nded nded release release clindamycin clindamycin 2017-10- No Barrera Unknown Unknown HCl 300 mg HCl 300 mg 008-26 ,Nabila capsule capsule Floranex 1 Floranex 1 [...] calcium No Barrera Unknown Unknown carbonate carbonate 1- ,Nabila [...] Unknown Unknown mg tablet mg tablet 1- ,Nabila rosuvastati rosuvastati No Jose Maria Unknown Unknown n 5 mg n 5 mg 4- ,Kerry tablet tablet hydroxychlo hydroxychlo No Vi Unknown Unknown roquine 200 roquine 200 -17 Jr,Alonzo mg tablet mg tablet J aspirin 325 aspirin 325 No Barrera Unknown Unknown mg tablet mg tablet 8 ,Nabila lisinopril lisinopril 2018- No Barrera Unknown Unknown 5 mg tablet 5 mg tablet 06-11 ,Nabila Privinil Privinil 2018-10 No Barrera Unknown Unknown 0-03 ,Nabila sulfamethox sulfamethox 2018-10 Yes [facility] Unknown Unknown azole 400 azole 400 2-30 MD,Abdirizak mg-trimetho mg-trimetho prim 80 mg prim 80 mg tablet tablet Vital Signs Vital Name Observation Time Observation Value Comments SYSTOLIC mm[Hg] 2019-12-09 18:10:22 110 mm[Hg] mm[Hg] Method: Sit SYSTOLIC mm[Hg] 2019-06-11 18:07:21 134 mm[Hg] mm[Hg] Method: Stand SYSTOLIC mm[Hg] 2019-08-19 18:08:30 106 mm[Hg] mm[Hg] Method: Lie DIASTOLIC mm[Hg] 2019-12-09 18:10:22 68 mm[Hg] mm[Hg] Method: Sit DIASTOLIC mm[Hg] 2019-06-11 18:07:21 76 mm[Hg] mm[Hg] Method: Stand DIASTOLIC mm[Hg] 2019-08-19 18:08:30 72 mm[Hg] mm[Hg] Method: Lie PULSE 2019-12-09 18:10:22 78 /min /min RESP RATE 2019-12-09 18:10:22 18 /min /min TEMP 2019-12-09 18:10:22 98.9 [degF] Procedures This patient has no known procedures. Results This patient has no known results.
--- OUTSIDE RECORDS SUMMARY | 2019-12-15 17:08 | XMS REPORT ---
:1960 Author Organization [facility] Care Team Providers Name Role Phone Unavailable Unavailable Unavailable Problems Condition Condition Condition Status Onset Resolution Last Treating Comments Name Details Category Date Date Treatment Clinician Date Systemic Systemic Diagnosis Active 2016-10 Jenelle lupus lupus 10-27 Wing erythematos erythematos [id number] us, us, unspecified unspecified Pain in Pain in Diagnosis Active 2016-10 Jenelle right arm right arm 10-27 Wing [id number] Pain in Pain in Diagnosis Active 2016-10 Jenelle right lower right lower 10-27 Wing leg leg [id number] Contracture Contracture Diagnosis Active Jenelle , right , 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 [id number] Urinary Urinary Diagnosis Active 2016-10 Jenelle tract tract 11-03 Wing infection, infection, [id number] site not site not specified specified Hypertensiv Hypertensiv Diagnosis Active 2016-10 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 kdny chr kdny 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, disease, 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) (mild) 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, disorder, [id number] single single episode, episode, unspecified unspecified Spinal Spinal Diagnosis Active Jenelle stenosis, stenosis, Wing site site [id number] unspecified unspecified 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, hip joint, [id number] bilateral bilateral Epilepsy, Epilepsy, Diagnosis Active Jenelle unsp, not unsp, not Wing intractable intractable [id number] , without , without status status epilepticus epilepticus 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 Pain frequent Pain Mgmt Resolve 2016-102019-04-23 Maria A pain d 11-03 15:40:00 Jaquan 14:09: [id number] 00 Nutrition nutritional Nutrition Resolve 2016-102017-09-30 Maria A restriction d 11-03 14:00:00 Jaquan s 14:09: [id number] 00 Elimination knowledge/s Eliminatio Resolve 2016-102017-09-30 Maria A kill n d 11-03 14:00:00 Jaquan deficit: pt 14:09: [id number] 00 Elimination urinary Eliminatio Resolve 2016-102017-09-30 Maria A incontinenc n d 11-03 14:00:00 Jaquan e 14:09: [id number] 00 Elimination UTI within Eliminatio Resolve 2016-102017-09-30 Maria A past 14 n d 11-03 14:00:00 Jaquan days 14:09: [id number] 00 Activity ADL Activity Unknown 2016-10 Quality assistance 11-03 Realtime required 14:09: 00 Safety risk for Safety Resolve 2016-102017-09-23 Maria A hospitaliza d 11-03 09:45:00 Jaquan tion 14:09: [id number] 00 Medication potential Meds Resolve 2016-102017-10-02 Maria A clinically d 11-03 13:30:00 Jaquan significant 14:09: [id number] medication 00 issue Medication oral med Meds Resolve 2016-102017-10-02 Maria A assistance d 11-03 13:30:00 Jaquan required 14:09: [id number] 00 Elimination recurring Eliminatio Resolve 2016-102017-09-30 Maria A UTI n d 11-10 14:00:00 Jaquan 14:00: [id number] 00 Safety risk for Safety Resolve 2016-102017-09-30 Maria A hospitaliza d 11-25 14:00:00 Jaquan tion 11:04: [id number] 00 Nutrition nutritional Nutrition Resolve 2016-102017-10-07 Maria A restriction d 12-03 11:06:00 Jaquan s 13:30: [id number] 00 Elimination urinary Eliminatio Resolve 2016-102017-10-02 Maria A incontinenc n d 12-03 13:30:00 Jaquan e 13:30: [id number] 00 Safety risk for Safety Resolve 2016-102017-10-07 Maria A hospitaliza d 12-03 11:06:00 Jaquan tion 13:30: [id number] 00 Elimination urinary Eliminatio Resolve 2016-102017-10-28 Maria A incontinenc n d 12-22 09:32:00 Jaquan e 10:14: [id number] 00 Elimination constipatio Eliminatio Resolve 2016-102017-10-28 Maria A n n d 12-22 09:32:00 Jaquan 10:14: [id number] 00 Pain frequent Pain Mgmt Unknown Maria A pain 10-28 Jaquan 09:32: [id number] 00 Activity ADL Activity Resolve 2018-02-10 Maria A assistance d 10-28 11:05:00 Jaquan required 09:32: [id number] 00 Elimination urinary Eliminatio Resolve 2017-12-17 Mehnaz incontinenc n d 11-04 11:35:00 [place] e 13:15: [id number] 00 Safety risk for Safety Active Mehnaz hospitaliza 11-04 Ugalde tion 13:15: [id number] 00 Safety can be left Safety Active Mehnaz alone for 11-04 [place] only short 13:15: [id number] periods 00 Elimination urinary Eliminatio Resolve 2018-02-26 Maria A incontinenc n d 12-31 12:00:00 Jauqan e 10:00: [id number] 00 Medication oral med Meds Resolve 2018-02-26 Maria A assistance d 12-31 12:00:00 Jaquan required 10:00: [id number] 00 Medication injectable Meds Resolve 2018-02-26 Maria A med d 12-31 12:00:00 Jaquan assistance 10:00: [id number] required 00 Elimination constipatio Eliminatio Resolve 2018-02-26 Maria A n n d 01-20 12:00:00 Jaquan 11:19: [id number] 00 Safety fire risk Safety Active Maria A present 04-11 Eliz 12:00: [id number] 00 Elimination urinary Eliminatio Resolve 2018-09-03 Maria A incontinenc n d 04-16 11:30:00 [place] e 11:56: [id number] 00 Medication oral med Meds Resolve 2018-12-24 Maria A assistance d 04-16 13:24:00 [place] required 11:56: [id number] 00 Safety fall risk Safety Active Maria A factor 06-25 Eliz present 14:00: [id number] 00 Pain frequent Pain Mgmt Unknown 2017-10 Maria A pain 10-28 Eliz 13:00: [id number] 00 Endo/López anti-coagul Endo/López Resolve 2017-102019-06-24 Maria A ation d 11-03 13:34:00 [place] therapy 11:30: [id number] 00 Elimination urinary Eliminatio Resolve 2017-102019-02-22 Maria A incontinenc n d 14:30:00 Eliz e 14:34: [id number] 00 Nutrition nutritional Nutrition Active Princess restriction 2-14 Seager s 13:11: [id number] 00 Cardio chest pain Cardiovasc Resolve 2019-09-16 Maria A ular d 12-24 13:52:00 [place] 13:24: [id number] 00 Elimination urinary Eliminatio Resolve 2019-08-19 Maria A incontinenc n d 04-23 13:50:00 Eliz e 15:40: [id number] 00 Safety can be left Safety Unknown Maria A alone for 04-23 Eliz only short 15:40: [id number] periods 00 Pain frequent Pain Mgmt Resolve 2019-06-24 Kaye pain d 16 13:34:00 [place] 09:20: [id number] 00 Elimination UTI within Eliminatio Resolve 2019-08-19 Kaye past 14 n d 06-11 13:50:00 [place] days 09:20: [id number] 00 Elimination bowel Eliminatio Resolve 2019-08-19 Kaye incontinenc n d 06-11 13:50:00 [place] e 09:20: [id number] 00 Neuro confusion Neuro/Emot Active Kaye present ion 06-11 [place] 09:20: [id number] 00 Activity ADL Activity Unknown Kaye assistance 06-11 [place] required 09:20: [id number] 00 Activity self-care Activity Active Kaye deficit 06-11 [place] 09:20: [id number] 00 Medication oral med Meds Resolve 2019-06-24 Kaye assistance d 06-11 13:34:00 [place] required 09:20: [id number] 00 Musculoskel transfer Musculoske Resolve 2019-09-16 Kaye etal assistance letal d 06-11 13:52:00 [place] required 09:20: [id number] 00 Musculoskel requires Musculoske Resolve 2019-09-16 Kaye etal human letal d 06-11 13:52:00 [place] assist to 09:20: [id number] leave home 00 Activity ADL Activity Active Elizabeth A. assistance 07-08 [facility] required 14:57: e 00 [id number] Medication potential Meds Active Princess clinically 07-22 [place]ager significant 14:30: [id number] medication 00 issue Elimination urinary Eliminatio Resolve 2018-102019-09-16 Maria A incontinenc n d 11-02 13:52:00 Tree e 11:45: [employer] 00 [id number] Elimination urinary Eliminatio Active 2018-10 Maria A incontinenc n 12-01 Tree e 10:32: [employer] 00 [id number] Allergies, Adverse Reactions, Alerts Allergy Name Allergy Status Severity Reaction(s) Onset Inactive Treating Comments Type Date Date Clinician fentanyl Base Active Unknown Rash, Hives, 2016-10 Angy Ingredient itchy -16 Primitivo [id number] Sulfa Allergen Active Unknown Facial 2016-10 Angy (Sulfonamide Group Redness/ -16 Primitivo Antibiotics) Flushing [id number] baclofen Base Active Moderate Unknown 2016-10 Angy Ingredient 1-16 Primitivo [id number] nitrofuranto Base Active Unknown Reaction 2016-10 Angy in Ingredient Unknown 11-11 Primitivo [id number] rosuvastatin Base Active Unknown extreme Princess Ingredient fatigue and 2- Seager CP [id number] Medications Ordered Filled Start Stop Current Ordering [...] chewable tablet tablet rosuvastati rosuvastati 2018- No [place] Unknown Unknown n 5 mg n 5 mg 11-13- ,Kerry tablet tablet hydroxychlo hydroxychlo 2017-10- No Vi Unknown Unknown roquine 200 roquine 200 2- 07-17 Jr,Alonzo mg tablet mg tablet J Pepcid 20 Pepcid 20 2016-10 No [place] Unknown Unknown mg tablet mg tablet 11-03 ,Nabila rosuvastati rosuvastati No [place] Unknown Unknown n 5 mg n 5 [...] Unknown 0-03 ,Nabila sulfamethox sulfamethox 2018-10 Yes [place] Unknown Unknown azole 400 azole 400 2-30 MD,Abdirizak mg-trimetho mg-trimetho prim 80 mg prim 80 mg tablet tablet Vital Signs Vital Name Observation Time Observation Value Comments SYSTOLIC mm[Hg] 2019-11-15 18:09:58 106 mm[Hg] mm[Hg] Method: Sit SYSTOLIC mm[Hg] 2019-06-11 18:07:21 134 mm[Hg] mm[Hg] Method: Stand SYSTOLIC mm[Hg] 2019-08-19 18:08:30 106 mm[Hg] mm[Hg] Method: Lie DIASTOLIC mm[Hg] 2019-11-15 18:09:58 68 mm[Hg] mm[Hg] Method: Sit DIASTOLIC mm[Hg] 2019-06-11 18:07:21 76 mm[Hg] mm[Hg] Method: Stand DIASTOLIC mm[Hg] 2019-08-19 18:08:30 72 mm[Hg] mm[Hg] Method: Lie PULSE 2019-11-15 18:09:58 86 /min /min RESP RATE 2019-11-15 18:09:58 18 /min /min TEMP 2019-11-15 18:09:58 97.7 [degF] Procedures This patient has no known procedures. Results This patient has no known results.
--- OUTSIDE RECORDS SUMMARY | 2019-12-15 17:08 | XMS REPORT ---
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 [id number] us, us, unspecified unspecified Pain in Pain in Diagnosis Active 2016-10 Jenelle right arm right arm 10-27 Wing [id number] Pain in Pain in Diagnosis Active 2016-10 Jenelle right lower right lower 10-27 Wing leg leg [id number] Contracture Contracture Diagnosis Active Jenelle , right , 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 [id number] Urinary Urinary Diagnosis Active 2016-10 Jenelle tract tract 11-03 Wing infection, infection, [id number] site not site not specified specified Hypertensiv Hypertensiv Diagnosis Active 2016-10 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 [id number] disease w disease w stg stg 1-4/unsp 1-4/unsp chr kdny chr kdny 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, disease, [id number] stage 2 stage 2 (mild) (mild) 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, disorder, [id number] single single episode, episode, unspecified unspecified Spinal Spinal Diagnosis Active Jenelle stenosis, stenosis, Wing site site [id number] unspecified unspecified 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, hip joint, [id number] bilateral bilateral Epilepsy, Epilepsy, Diagnosis Active Jenelle unsp, not unsp, not Wing intractable intractable [id number] , without , without status status epilepticus epilepticus 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 [id number] Pain frequent Pain Mgmt Resolve 2016-102019-04-23 Maria A pain d 11-03 15:40:00 Jaquan 14:09: [id number] 00 Nutrition nutritional Nutrition Resolve 2016-102017-09-30 Maria A restriction d 11-03 14:00:00 Jaquan s 14:09: [id number] 00 Elimination knowledge/s Eliminatio Resolve 2016-102017-09-30 Maria A kill n d 11-03 14:00:00 Jaquan deficit: pt 14:09: [id number] 00 Elimination urinary Eliminatio Resolve 2016-102017-09-30 Maria A incontinenc n d 11-03 14:00:00 Jaquan e 14:09: [id number] 00 Elimination UTI within Eliminatio Resolve 2016-102017-09-30 Maria A past 14 n d 11-03 14:00:00 Jaquan days 14:09: [id number] 00 Activity ADL Activity Unknown 2016-10 Quality assistance 11-03 Realtime required 14:09: 00 Safety risk for Safety Resolve 2016-102017-09-23 Maria A hospitaliza d 11-03 09:45:00 Jaquan tion 14:09: [id number] 00 Medication potential Meds Resolve 2016-102017-10-02 Maria A clinically d 11-03 13:30:00 Jaquan significant 14:09: [id number] medication 00 issue Medication oral med Meds Resolve 2016-102017-10-02 Maria A assistance d 11-03 13:30:00 Jaquan required 14:09: [id number] 00 Elimination recurring Eliminatio Resolve 2016-102017-09-30 Maria A UTI n d 11-10 14:00:00 Jaquan 14:00: [id number] 00 Safety risk for Safety Resolve 2016-102017-09-30 Maria A hospitaliza d 11-25 14:00:00 Jaquan tion 11:04: [id number] 00 Nutrition nutritional Nutrition Resolve 2016-102017-10-07 Maria A restriction d 12-03 11:06:00 Jaquan s 13:30: [id number] 00 Elimination urinary Eliminatio Resolve 2016-102017-10-02 Maria A incontinenc n d 12-03 13:30:00 Jqauan e 13:30: [id number] 00 Safety risk for Safety Resolve 2016-102017-10-07 Maria A hospitaliza d 12-03 11:06:00 Jaquan tion 13:30: [id number] 00 Elimination urinary Eliminatio Resolve 2016-102017-10-28 Maria A incontinenc n d 12-22 09:32:00 Jaquan e 10:14: [id number] 00 Elimination constipatio Eliminatio Resolve 2016-102017-10-28 Maria A n n d 12-22 09:32:00 Jaquan 10:14: [id number] 00 Pain frequent Pain Mgmt Unknown Maria A pain 10-28 Jaquan 09:32: [id number] 00 Activity ADL Activity Resolve 2018-02-10 Maria A assistance d 10-28 11:05:00 Jaquan required 09:32: [id number] 00 Elimination urinary Eliminatio Resolve 2017-12-17 Mehnaz incontinenc n d 11-04 11:35:00 [place] e 13:15: [id number] 00 Safety risk for Safety Active Mehnaz hospitaliza 11-04 [place] tion 13:15: [id number] 00 Safety can be left Safety Active Mehnaz alone for 11-04 [place] only short 13:15: [id number] periods 00 Elimination urinary Eliminatio Resolve 2018-02-26 Maria A incontinenc n d 12-31 12:00:00 Jaquan e 10:00: [id number] 00 Medication oral med Meds Resolve 2018-02-26 Maria A assistance d 12-31 12:00:00 Jaquan required 10:00: [id number] 00 Medication injectable Meds Resolve 2018-02-26 Maria A med d 12-31 12:00:00 Jaquan assistance 10:00: [id number] required 00 Elimination constipatio Eliminatio Resolve 2018-02-26 Maria A n n d 01-20 12:00:00 Jaquan 11:19: [id number] 00 Safety fire risk Safety Active Maria A present 04-11 Eliz 12:00: [id number] 00 Elimination urinary Eliminatio Resolve 2018-09-03 Maria A incontinenc n d 04-16 11:30:00 [place] e 11:56: [id number] 00 Medication oral med Meds Resolve 2018-12-24 Maria A assistance d 04-16 13:24:00 Eliz required 11:56: [id number] 00 Safety fall risk Safety Active Maria A factor 06-25 [place] present 14:00: [id number] 00 Pain frequent Pain Mgmt Unknown 2017-10 Maria A pain 10-28 [place] 13:00: [id number] 00 Endo/López anti-coagul Endo/López Resolve 2017-102019-06-24 Maria A ation d 11-03 13:34:00 [place] therapy 11:30: [id number] 00 Elimination urinary Eliminatio Resolve 2017-102019-02-22 Maria A incontinenc n d 14:30:00 Eliz e 14:34: [id number] 00 Nutrition nutritional Nutrition Active Princess restriction 2-14 [place]ager s 13:11: [id number] 00 Cardio chest pain Cardiovasc Resolve 2019-09-16 Maria A ular d 12-24 13:52:00 Eliz 13:24: [id number] 00 Elimination urinary Eliminatio Resolve 2019-08-19 Maria A incontinenc n d 04-23 13:50:00 Eliz e 15:40: [id number] 00 Safety can be left Safety Unknown Maria A alone for 04-23 Eliz only short 15:40: [id number] periods 00 Pain frequent Pain Mgmt Resolve 2019-06-24 Kaye pain d 16 13:34:00 [place] 09:20: [id number] 00 Elimination UTI within Eliminatio Resolve 2019-08-19 Kaye past 14 n d 06-11 13:50:00 [place] days 09:20: [id number] 00 Elimination bowel Eliminatio Resolve 2019-08-19 Kaye incontinenc n d 06-11 13:50:00 [place] e 09:20: [id number] 00 Neuro confusion Neuro/Emot Active Kaye present ion 06-11 [place] 09:20: [id number] 00 Activity ADL Activity Unknown Kaye assistance 06-11 [place] required 09:20: [id number] 00 Activity self-care Activity Active Kaye deficit 06-11 [place] 09:20: [id number] 00 Medication oral med Meds Resolve 2019-06-24 Kaye assistance d 06-11 13:34:00 [place] required 09:20: [id number] 00 Musculoskel transfer Musculoske Resolve 2019-09-16 Kaye etal assistance letal d 06-11 13:52:00 [place] required 09:20: [id number] 00 Musculoskel requires Musculoske Resolve 2019-09-16 Kaye etal human letal d 06-11 13:52:00 [place] assist to 09:20: [id number] leave home 00 Activity ADL Activity Active Elizabeth A. assistance 07-08 [facility] required 14:57: e 00 [id number] Medication potential Meds Active Princess clinically 07-22 Seager significant 14:30: [id number] medication 00 issue Elimination urinary Eliminatio Resolve 2018-102019-09-16 Maria A incontinenc n d 1-07 13:52:00 Tree e 11:45: [employer] 00 [id number] Elimination urinary Eliminatio Resolve 2018-102019-12-09 Maria A incontinenc n d 205 11:10:00 Tree e 10:32: [employer] 00 [id number] Allergies, Adverse Reactions, Alerts Allergy Name Allergy Status Severity Reaction(s) Onset Inactive Treating Comments Type Date Date Clinician fentanyl Base Active Unknown Rash, Hives, 2016-10 Angy Ingredient itchy -16 Primitivo [id number] Sulfa Allergen Active Unknown Facial 2016-10 Angy (Sulfonamide Group Redness/ -16 Primitivo Antibiotics) Flushing [id number] baclofen Base Active Moderate Unknown 2016-10 Angy Ingredient 1-16 Primitivo [id number] nitrofuranto Base Active Unknown Reaction 2016-10 Angy in Ingredient Unknown 11-11 Primitivo [id number] rosuvastatin Base Active Unknown extreme Princess Ingredient fatigue and 12-10 Alicia TAYLOR [id number] Medications Ordered Filled Start Stop Current Ordering [...] Unknown 0-03 ,Nabila sulfamethox sulfamethox 2018-10 Yes [place] Unknown Unknown azole 400 azole 400 2-30 [...]
--- OUTSIDE RECORDS SUMMARY | 2019-12-15 17:09 | XMS REPORT ---
:1960 Author Organization [facility] Care Team Providers Name Role Phone Unavailable Unavailable Unavailable Problems Condition Condition Condition Status Onset Resolution Last Treating Comments Name Details Category Date Date Treatment Clinician Date Systemic Systemic Diagnosis Active 2016-10 Jenelle lupus lupus 10-27 Wing erythematos erythematos [id number] us, us, unspecified unspecified Pain in Pain in Diagnosis Active 2016-10 Jenelle right arm right arm 10-27 Wing [id number] Pain in Pain in Diagnosis Active 2016-10 Jenelle right lower right lower 10-27 Wing leg leg [id number] Contracture Contracture Diagnosis Active Jenelle , right , 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 [id number] Urinary Urinary Diagnosis Active 2016-10 Jenelle tract tract 11-03 Wing infection, infection, [id number] site not site not specified specified Hypertensiv Hypertensiv Diagnosis Active 2016-10 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 chr kdny chr kdny 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, disease, [id number] stage 2 stage 2 (mild) (mild) 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, disorder, [id number] single single episode, episode, unspecified unspecified Spinal Spinal Diagnosis Active Jenelle stenosis, stenosis, Wing site site [id number] unspecified unspecified 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, hip joint, [id number] bilateral bilateral Epilepsy, Epilepsy, Diagnosis Active Jenelle unsp, not unsp, not Wing intractable intractable [id number] , without , without status status epilepticus epilepticus 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 [id number] Pain frequent Pain Mgmt Resolve 2016-102019-04-23 Maria A pain d 11-03 15:40:00 Jaquan 14:09: [id number] 00 Nutrition nutritional Nutrition Resolve 2016-102017-09-30 Maria A restriction d 11-03 14:00:00 Jaquan s 14:09: [id number] 00 Elimination knowledge/s Eliminatio Resolve 2016-102017-09-30 Maria A kill n d 11-03 14:00:00 Jaquan deficit: pt 14:09: [id number] 00 Elimination urinary Eliminatio Resolve 2016-102017-09-30 Maria A incontinenc n d 11-03 14:00:00 Jaquan e 14:09: [id number] 00 Elimination UTI within Eliminatio Resolve 2016-102017-09-30 Maria A past 14 n d 11-03 14:00:00 Jaquan days 14:09: [id number] 00 Activity ADL Activity Unknown 2016-10 Quality assistance 11-03 Realtime required 14:09: 00 Safety risk for Safety Resolve 2016-102017-09-23 Maria A hospitaliza d 11-03 09:45:00 Jaquan tion 14:09: [id number] 00 Medication potential Meds Resolve 2016-102017-10-02 Maria A clinically d 11-03 13:30:00 Jaquan significant 14:09: [id number] medication 00 issue Medication oral med Meds Resolve 2016-102017-10-02 Maria A assistance d 11-03 13:30:00 Jaquan required 14:09: [id number] 00 Elimination recurring Eliminatio Resolve 2016-102017-09-30 Maria A UTI n d 11-10 14:00:00 Jaquan 14:00: [id number] 00 Safety risk for Safety Resolve 2016-102017-09-30 Maria A hospitaliza d 11-25 14:00:00 Jaquan tion 11:04: [id number] 00 Nutrition nutritional Nutrition Resolve 2016-102017-10-07 Maria A restriction d 12-03 11:06:00 Jaquan s 13:30: [id number] 00 Elimination urinary Eliminatio Resolve 2016-102017-10-02 Maria A incontinenc n d 12-03 13:30:00 Jaquan e 13:30: [id number] 00 Safety risk for Safety Resolve 2016-102017-10-07 Maria A hospitaliza d 12-03 11:06:00 Jaquan tion 13:30: [id number] 00 Elimination urinary Eliminatio Resolve 2016-102017-10-28 Maria A incontinenc n d 12-22 09:32:00 Jaquan e 10:14: [id number] 00 Elimination constipatio Eliminatio Resolve 2016-102017-10-28 Maria A n n d 12-22 09:32:00 Jaquan 10:14: [id number] 00 Pain frequent Pain Mgmt Unknown Maria A pain 10-28 Jaquan 09:32: [id number] 00 Activity ADL Activity Resolve 2018-02-10 Maria A assistance d 10-28 11:05:00 Jaquan required 09:32: [id number] 00 Elimination urinary Eliminatio Resolve 2017-12-17 Mehnaz incontinenc n d 11-04 11:35:00 Ugalde e 13:15: [id number] 00 Safety risk for Safety Active Mehnaz hospitaliza 11-04 Ugalde tion 13:15: [id number] 00 Safety can be left Safety Active Mehnaz alone for 11-04 Ugalde only short 13:15: [id number] periods 00 Elimination urinary Eliminatio Resolve 2018-02-26 Maria A incontinenc n d 12-31 12:00:00 Jaquan e 10:00: [id number] 00 Medication oral med Meds Resolve 2018-02-26 Maria A assistance d 12-31 12:00:00 Jaquan required 10:00: [id number] 00 Medication injectable Meds Resolve 2018-02-26 Maria A med d 12-31 12:00:00 Jaquan assistance 10:00: [id number] required 00 Elimination constipatio Eliminatio Resolve 2018-02-26 Maria A n n d 01-20 12:00:00 Jaquan 11:19: [id number] 00 Safety fire risk Safety Active Maria A present 04-11 Eliz 12:00: [id number] 00 Elimination urinary Eliminatio Resolve 2018-09-03 Maria A incontinenc n d 04-16 11:30:00 Louisa e 11:56: [id number] 00 Medication oral med Meds Resolve 2018-12-24 Maria A assistance d 04-16 13:24:00 Louisa required 11:56: [id number] 00 Safety fall risk Safety Active Maria A factor 06-25 Eliz present 14:00: [id number] 00 Pain frequent Pain Mgmt Unknown 2017-10 Maria A pain 10-28 Eliz 13:00: [id number] 00 Endo/López anti-coagul Endo/López Resolve 2017-102019-06-24 Maria A ation d 11-03 13:34:00 Louisa therapy 11:30: [id number] 00 Elimination urinary Eliminatio Resolve 2017-102019-02-22 Maria A incontinenc n d 14:30:00 Eliz e 14:34: [id number] 00 Nutrition nutritional Nutrition Active Princess restriction 2-14 Seager s 13:11: [id number] 00 Cardio chest pain Cardiovasc Resolve 2019-09-16 Maria A ular d 12-24 13:52:00 Louisa 13:24: [id number] 00 Elimination urinary Eliminatio Resolve 2019-08-19 Maria A incontinenc n d 04-23 13:50:00 Eliz e 15:40: [id number] 00 Safety can be left Safety Unknown Maria A alone for 04-23 Eliz only short 15:40: [id number] periods 00 Pain frequent Pain Mgmt Resolve 2019-06-24 Kaye pain d 16 13:34:00 Briscoe 09:20: [id number] 00 Elimination UTI within Eliminatio Resolve 2019-08-19 Kaye past 14 n d 06-11 13:50:00 Briscoe days 09:20: [id number] 00 Elimination bowel Eliminatio Resolve 2019-08-19 Kaye incontinenc n d 06-11 13:50:00 Briscoe e 09:20: [id number] 00 Neuro confusion Neuro/Emot Active Kaye present ion 06-11 Briscoe 09:20: [id number] 00 Activity ADL Activity Unknown Kaye assistance 06-11 Briscoe required 09:20: [id number] 00 Activity self-care Activity Active Kaye deficit 06-11 Briscoe 09:20: [id number] 00 Medication oral med Meds Resolve 2019-06-24 Kaye assistance d 06-11 13:34:00 Briscoe required 09:20: [id number] 00 Musculoskel transfer Musculoske Resolve 2019-09-16 Kaye etal assistance letal d 06-11 13:52:00 Briscoe required 09:20: [id number] 00 Musculoskel requires Musculoske Resolve 2019-09-16 Kaye etal human letal d 06-11 13:52:00 Briscoe assist to 09:20: [id number] leave home 00 Activity ADL Activity Active Elizabeth A. assistance 07-08 [facility] required 14:57: e 00 [id number] Medication potential Meds Active Princess clinically 07-22 Seager significant 14:30: [id number] medication 00 issue Elimination urinary Eliminatio Resolve 2018-102019-09-16 Maria A incontinenc n d 11-02 13:52:00 Tree e 11:45: [employer] 00 [id number] Elimination urinary Eliminatio Active 2018-10 Maria A incontinenc n 12-01 Tree e 10:32: [employer] 00 [id number] Allergies, Adverse Reactions, Alerts Allergy Name Allergy Status Severity Reaction(s) Onset Inactive Treating Comments Type Date Date Clinician fentanyl Base Active Unknown Rash, Hives, 2016-10 Angy Ingredient itchy -16 Primitivo [id number] Sulfa Allergen Active Unknown Facial 2016-10 Angy (Sulfonamide Group Redness/ -16 Primitivo Antibiotics) Flushing [id number] baclofen Base Active Moderate Unknown 2016-10 Angy Ingredient 1-16 Primitivo [id number] nitrofuranto Base Active Unknown Reaction 2016-10 Angy in Ingredient Unknown 11-11 Primitivo [id number] rosuvastatin Base Active Unknown extreme Princess Ingredient fatigue and 2- Seager CP [id number] Medications Ordered Filled Start Stop Current Ordering [...] chewable tablet tablet rosuvastati rosuvastati 2018- No [place] Unknown Unknown n 5 mg n 5 mg 11-13- ,Kerry tablet tablet hydroxychlo hydroxychlo 2017-10- No Vi Unknown Unknown roquine 200 roquine 200 2- 07-17 Jr,Alonzo mg tablet mg tablet J Pepcid 20 Pepcid 20 2016-10 No Bruce Unknown Unknown mg tablet mg tablet 11-03 ,Nabila rosuvastati rosuvastati No [place] Unknown Unknown n 5 mg n 5 [...] Unknown 0-03 ,Nabila sulfamethox sulfamethox 2018-10 Yes [place] Unknown Unknown azole 400 azole 400 2-30 MD,Abdirizak mg-trimetho mg-trimetho prim 80 mg prim 80 mg tablet tablet Vital Signs Vital Name Observation Time Observation Value Comments SYSTOLIC mm[Hg] 2019-10-29 18:09:41 110 mm[Hg] mm[Hg] Method: Sit SYSTOLIC mm[Hg] 2019-06-11 18:07:21 134 mm[Hg] mm[Hg] Method: Stand SYSTOLIC mm[Hg] 2019-08-19 18:08:30 106 mm[Hg] mm[Hg] Method: Lie DIASTOLIC mm[Hg] 2019-10-29 18:09:41 64 mm[Hg] mm[Hg] Method: Sit DIASTOLIC mm[Hg] 2019-06-11 18:07:21 76 mm[Hg] mm[Hg] Method: Stand DIASTOLIC mm[Hg] 2019-08-19 18:08:30 72 mm[Hg] mm[Hg] Method: Lie PULSE 2019-10-29 18:09:41 84 /min /min RESP RATE 2019-10-29 18:09:41 18 /min /min TEMP 2019-10-29 18:09:41 98.4 [degF] Procedures This patient has no known procedures. Results This patient has no known results.
--- OUTSIDE RECORDS SUMMARY | 2019-12-15 17:09 | XMS REPORT ---
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 [id number] us, us, unspecified unspecified Pain in Pain in Diagnosis Active 2016-10 Ejnelle right arm right arm 10-27 Wing [id number] Pain in Pain in Diagnosis Active 2016-10 Jenelle right lower right lower 10-27 Wing leg leg [id number] Contracture Contracture Diagnosis Active Jenelle , right , 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 [id number] Urinary Urinary Diagnosis Active 2016-10 Jenelle tract tract 11-03 Wing infection, infection, [id number] site not site not specified specified Hypertensiv Hypertensiv Diagnosis Active 2016-10 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 [id number] disease w disease w stg stg 1-4/unsp 1-4/unsp chr kdny chr kdny 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, disease, [id number] stage 2 stage 2 (mild) (mild) 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, disorder, [id number] single single episode, episode, unspecified unspecified Spinal Spinal Diagnosis Active Jenelle stenosis, stenosis, Wing site site [id number] unspecified unspecified 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, hip joint, [id number] bilateral bilateral Epilepsy, Epilepsy, Diagnosis Active Jenelle unsp, not unsp, not Wing intractable intractable [id number] , without , without status status epilepticus epilepticus 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 [id number] Pain frequent Pain Mgmt Resolve 2016-102019-04-23 Maria A pain d 11-03 15:40:00 Jaquan 14:09: [id number] 00 Nutrition nutritional Nutrition Resolve 2016-102017-09-30 Maria A restriction d 11-03 14:00:00 Jaquan s 14:09: [id number] 00 Elimination knowledge/s Eliminatio Resolve 2016-102017-09-30 Maria A kill n d 11-03 14:00:00 Jaquan deficit: pt 14:09: [id number] 00 Elimination urinary Eliminatio Resolve 2016-102017-09-30 Maria A incontinenc n d 11-03 14:00:00 Jaquan e 14:09: [id number] 00 Elimination UTI within Eliminatio Resolve 2016-102017-09-30 Maria A past 14 n d 11-03 14:00:00 Jaquan days 14:09: [id number] 00 Activity ADL Activity Unknown 2016-10 Quality assistance 11-03 Realtime required 14:09: 00 Safety risk for Safety Resolve 2016-102017-09-23 Maria A hospitaliza d 11-03 09:45:00 Jaquan tion 14:09: [id number] 00 Medication potential Meds Resolve 2016-102017-10-02 Maria A clinically d 11-03 13:30:00 Jaquan significant 14:09: [id number] medication 00 issue Medication oral med Meds Resolve 2016-102017-10-02 Maria A assistance d 11-03 13:30:00 Jaquan required 14:09: [id number] 00 Elimination recurring Eliminatio Resolve 2016-102017-09-30 Maria A UTI n d 11-10 14:00:00 Jaquan 14:00: [id number] 00 Safety risk for Safety Resolve 2016-102017-09-30 Maria A hospitaliza d 11-25 14:00:00 Jaquan tion 11:04: [id number] 00 Nutrition nutritional Nutrition Resolve 2016-102017-10-07 Maria A restriction d 12-03 11:06:00 Jaquan s 13:30: [id number] 00 Elimination urinary Eliminatio Resolve 2016-102017-10-02 Maria A incontinenc n d 12-03 13:30:00 Jaquan e 13:30: [id number] 00 Safety risk for Safety Resolve 2016-102017-10-07 Maria A hospitaliza d 12-03 11:06:00 Jaquan tion 13:30: [id number] 00 Elimination urinary Eliminatio Resolve 2016-102017-10-28 Maria A incontinenc n d 12-22 09:32:00 Jaquan e 10:14: [id number] 00 Elimination constipatio Eliminatio Resolve 2016-102017-10-28 Maria A n n d 12-22 09:32:00 Jaquan 10:14: [id number] 00 Pain frequent Pain Mgmt Unknown Maria A pain 10-28 Jaquan 09:32: [id number] 00 Activity ADL Activity Resolve 2018-02-10 Maria A assistance d 10-28 11:05:00 Jaquan required 09:32: [id number] 00 Elimination urinary Eliminatio Resolve 2017-12-17 Mehnaz incontinenc n d 11-04 11:35:00 Ugalde e 13:15: [id number] 00 Safety risk for Safety Active Mehnaz hospitaliza 11-04 Ugalde tion 13:15: [id number] 00 Safety can be left Safety Active Mehnaz alone for 11-04 Ugalde only short 13:15: [id number] periods 00 Elimination urinary Eliminatio Resolve 2018-02-26 Maria A incontinenc n d 12-31 12:00:00 Jaquan e 10:00: [id number] 00 Medication oral med Meds Resolve 2018-02-26 Maria A assistance d 12-31 12:00:00 Jaquan required 10:00: [id number] 00 Medication injectable Meds Resolve 2018-02-26 Maria A med d 12-31 12:00:00 Jaquan assistance 10:00: [id number] required 00 Elimination constipatio Eliminatio Resolve 2018-02-26 Maria A n n d 01-20 12:00:00 Jaquan 11:19: [id number] 00 Safety fire risk Safety Active Maria A present 04-11 Eliz 12:00: [id number] 00 Elimination urinary Eliminatio Resolve 2018-09-03 Maria A incontinenc n d 04-16 11:30:00 Eliz e 11:56: [id number] 00 Medication oral med Meds Resolve 2018-12-24 Maria A assistance d 04-16 13:24:00 Yarnell required 11:56: [id number] 00 Safety fall risk Safety Active Maria A factor 06-25 Yarnell present 14:00: [id number] 00 Pain frequent Pain Mgmt Unknown 2017-10 Maria A pain 10-28 Eliz 13:00: [id number] 00 Endo/López anti-coagul Endo/López Resolve 2017-102019-06-24 Maria A ation d 11-03 13:34:00 Yarnell therapy 11:30: [id number] 00 Elimination urinary Eliminatio Resolve 2017-102019-02-22 Maria A incontinenc n d 14:30:00 Eliz e 14:34: [id number] 00 Nutrition nutritional Nutrition Active Princess restriction 2-14 Seager s 13:11: [id number] 00 Cardio chest pain Cardiovasc Resolve 2019-09-16 Maria A ular d 12-24 13:52:00 Yarnell 13:24: [id number] 00 Elimination urinary Eliminatio Resolve 2019-08-19 Maria A incontinenc n d 04-23 13:50:00 Eliz e 15:40: [id number] 00 Safety can be left Safety Unknown Maria A alone for 04-23 Yarnell only short 15:40: [id number] periods 00 Pain frequent Pain Mgmt Resolve 2019-06-24 Kaye pain d 16 13:34:00 Cecil 09:20: [id number] 00 Elimination UTI within Eliminatio Resolve 2019-08-19 Kaye past 14 n d 06-11 13:50:00 Cecil days 09:20: [id number] 00 Elimination bowel Eliminatio Resolve 2019-08-19 Kaye incontinenc n d 06-11 13:50:00 Christoph e 09:20: [id number] 00 Neuro confusion Neuro/Emot Active Kaye present ion 06-11 Cecil 09:20: [id number] 00 Activity ADL Activity Unknown Kaye assistance 06-11 Cecil required 09:20: [id number] 00 Activity self-care Activity Active Kaye deficit 06-11 Cecil 09:20: [id number] 00 Medication oral med Meds Resolve 2019-06-24 Kaye assistance d 06-11 13:34:00 Cecil required 09:20: [id number] 00 Musculoskel transfer Musculoske Resolve 2019-09-16 Kaye etal assistance letal d 06-11 13:52:00 Cecil required 09:20: [id number] 00 Musculoskel requires Musculoske Resolve 2019-09-16 Kaye etal human letal d 06-11 13:52:00 Cecil assist to 09:20: [id number] leave home 00 Activity ADL Activity Active Elizabeth A. assistance 07-08 [facility] required 14:57: e 00 [id number] Medication potential Meds Active Princess clinically 07-22 Seager significant 14:30: [id number] medication 00 issue Elimination urinary Eliminatio Resolve 2018-102019-09-16 Maria A incontinenc n d 11-02 13:52:00 Tree e 11:45: [employer] 00 [id number] Elimination urinary Eliminatio Active 2018-10 Maria A incontinenc n 12-01 Tree e 10:32: [employer] 00 [id number] Allergies, Adverse Reactions, Alerts Allergy Name Allergy Status Severity Reaction(s) Onset Inactive Treating Comments Type Date Date Clinician fentanyl Base Active Unknown Rash, Hives, 2016-10 Angy Ingredient itchy -16 Primitivo [id number] Sulfa Allergen Active Unknown Facial 2016-10 Angy (Sulfonamide Group Redness/ -16 Primitivo Antibiotics) Flushing [id number] baclofen Base Active Moderate Unknown 2016-10 Angy Ingredient 1-16 Primitivo [id number] nitrofuranto Base Active Unknown Reaction 2016-10 Angy in Ingredient Unknown 11-11 Primitivo [id number] rosuvastatin Base Active Unknown extreme Princess Ingredient fatigue and 2- Seager CP [id number] Medications Ordered Filled Start Stop Current Ordering [...] tablet Tylenol 8 Tylenol 8 2017-10 No [place] Unknown Unknown Hour 650 mg Hour 650 [...] chewable tablet tablet rosuvastati rosuvastati 2018- No [place] Unknown Unknown n 5 mg n 5 mg 11-13- ,Kerry tablet tablet hydroxychlo hydroxychlo 2017-10- No Vi Unknown Unknown roquine 200 roquine 200 2- 07-17 Jr,Alonzo mg tablet mg tablet J Pepcid 20 Pepcid 20 2016-10 No [place] Unknown Unknown mg tablet mg tablet 11-03 ,Nabila rosuvastati rosuvastati No [place] Unknown Unknown n 5 mg n 5 [...] Unknown 0-03 ,Nabila sulfamethox sulfamethox 2018-10 Yes [place] Unknown Unknown azole 400 azole 400 2-30 [...]
--- OUTSIDE RECORDS SUMMARY | 2019-12-15 17:09 | XMS REPORT ---
:1960 Author Organization [facility] Care Team Providers Name Role Phone Unavailable Unavailable Unavailable Problems Condition Condition Condition Status Onset Resolution Last Treating Comments Name Details Category Date Date Treatment Clinician Date Systemic Systemic Diagnosis Active 2016-10 Jenelle lupus lupus 10-27 Wing erythematos erythematos [id number] us, us, unspecified unspecified Pain in Pain in Diagnosis Active 2016-10 Jenelle right arm right arm 10-27 Wing [id number] Pain in Pain in Diagnosis Active 2016-10 Jenelle right lower right lower 10-27 Wing leg leg [id number] Contracture Contracture Diagnosis Active Jenelle , right , 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 [id number] Urinary Urinary Diagnosis Active 2016-10 Jenelle tract tract 11-03 Wing infection, infection, [id number] site not site not specified specified Hypertensiv Hypertensiv Diagnosis Active 2016-10 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 kdny chr kdny 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, disease, 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) (mild) 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, disorder, [id number] single single episode, episode, unspecified unspecified Spinal Spinal Diagnosis Active Jenelle stenosis, stenosis, Wing site site [id number] unspecified unspecified 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, hip joint, [id number] bilateral bilateral Epilepsy, Epilepsy, Diagnosis Active Jenelle unsp, not unsp, not Wing intractable intractable [id number] , without , without status status epilepticus epilepticus 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 Pain frequent Pain Mgmt Resolve 2016-102019-04-23 Maria A pain d 11-03 15:40:00 Jaquan 14:09: [id number] 00 Nutrition nutritional Nutrition Resolve 2016-102017-09-30 Maria A restriction d 11-03 14:00:00 Jaquan s 14:09: [id number] 00 Elimination knowledge/s Eliminatio Resolve 2016-102017-09-30 Maria A kill n d 11-03 14:00:00 Jaquan deficit: pt 14:09: [id number] 00 Elimination urinary Eliminatio Resolve 2016-102017-09-30 Maria A incontinenc n d 11-03 14:00:00 Jaquan e 14:09: [id number] 00 Elimination UTI within Eliminatio Resolve 2016-102017-09-30 Maria A past 14 n d 11-03 14:00:00 Jaquan days 14:09: [id number] 00 Activity ADL Activity Unknown 2016-10 Quality assistance 11-03 Realtime required 14:09: 00 Safety risk for Safety Resolve 2016-102017-09-23 Maria A hospitaliza d 11-03 09:45:00 Jaquan tion 14:09: [id number] 00 Medication potential Meds Resolve 2016-102017-10-02 Maria A clinically d 11-03 13:30:00 Jaquan significant 14:09: [id number] medication 00 issue Medication oral med Meds Resolve 2016-102017-10-02 Maria A assistance d 11-03 13:30:00 Jaquan required 14:09: [id number] 00 Elimination recurring Eliminatio Resolve 2016-102017-09-30 Maria A UTI n d 11-10 14:00:00 Jaquan 14:00: [id number] 00 Safety risk for Safety Resolve 2016-102017-09-30 Maria A hospitaliza d 11-25 14:00:00 Jaquan tion 11:04: [id number] 00 Nutrition nutritional Nutrition Resolve 2016-102017-10-07 Maria A restriction d 12-03 11:06:00 Jaquan s 13:30: [id number] 00 Elimination urinary Eliminatio Resolve 2016-102017-10-02 Maria A incontinenc n d 12-03 13:30:00 Jaquan e 13:30: [id number] 00 Safety risk for Safety Resolve 2016-102017-10-07 Maria A hospitaliza d 12-03 11:06:00 Jaquan tion 13:30: [id number] 00 Elimination urinary Eliminatio Resolve 2016-102017-10-28 Maria A incontinenc n d 12-22 09:32:00 Jaquan e 10:14: [id number] 00 Elimination constipatio Eliminatio Resolve 2016-102017-10-28 Maria A n n d 12-22 09:32:00 Jaquan 10:14: [id number] 00 Pain frequent Pain Mgmt Unknown Maria A pain 10-28 Jaquan 09:32: [id number] 00 Activity ADL Activity Resolve 2018-02-10 Maria A assistance d 10-28 11:05:00 Jaquan required 09:32: [id number] 00 Elimination urinary Eliminatio Resolve 2017-12-17 Mehnaz incontinenc n d 11-04 11:35:00 [place] e 13:15: [id number] 00 Safety risk for Safety Active Mehnaz hospitaliza 11-04 Ugalde tion 13:15: [id number] 00 Safety can be left Safety Active Mehnaz alone for 11-04 Ugal[place] only short 13:15: [id number] periods 00 Elimination urinary Eliminatio Resolve 2018-02-26 Maria A incontinenc n d 12-31 12:00:00 Jaquan e 10:00: [id number] 00 Medication oral med Meds Resolve 2018-02-26 Maria A assistance d 12-31 12:00:00 Jaquan required 10:00: [id number] 00 Medication injectable Meds Resolve 2018-02-26 Maria A med d 12-31 12:00:00 Jaquan assistance 10:00: [id number] required 00 Elimination constipatio Eliminatio Resolve 2018-02-26 Maria A n n d 01-20 12:00:00 Jaquan 11:19: [id number] 00 Safety fire risk Safety Active Maria A present 04-11 Eliz 12:00: [id number] 00 Elimination urinary Eliminatio Resolve 2018-09-03 Maria A incontinenc n d 04-16 11:30:00 Eliz e 11:56: [id number] 00 Medication oral med Meds Resolve 2018-12-24 Maria A assistance d 04-16 13:24:00 Gay required 11:56: [id number] 00 Safety fall risk Safety Active Maria A factor 06-25 Gay present 14:00: [id number] 00 Pain frequent Pain Mgmt Unknown 2017-10 Maria A pain 10-28 Eliz 13:00: [id number] 00 Endo/López anti-coagul Endo/López Resolve 2017-102019-06-24 Maria A ation d 11-03 13:34:00 Gay therapy 11:30: [id number] 00 Elimination urinary Eliminatio Resolve 2017-102019-02-22 Maria A incontinenc n d 14:30:00 Eliz e 14:34: [id number] 00 Nutrition nutritional Nutrition Active Princess restriction 2-14 Seager s 13:11: [id number] 00 Cardio chest pain Cardiovasc Resolve 2019-09-16 Maria A ular d 12-24 13:52:00 Gay 13:24: [id number] 00 Elimination urinary Eliminatio Resolve 2019-08-19 Maria A incontinenc n d 04-23 13:50:00 Eliz e 15:40: [id number] 00 Safety can be left Safety Unknown Maria A alone for 04-23 Gay only short 15:40: [id number] periods 00 Pain frequent Pain Mgmt Resolve 2019-06-24 Kaye pain d 16 13:34:00 [place] 09:20: [id number] 00 Elimination UTI within Eliminatio Resolve 2019-08-19 Kaye past 14 n d 06-11 13:50:00 [place] days 09:20: [id number] 00 Elimination bowel Eliminatio Resolve 2019-08-19 Kaye incontinenc n d 06-11 13:50:00 Christoph e 09:20: [id number] 00 Neuro confusion Neuro/Emot Active Kaye present ion 06-11 [place] 09:20: [id number] 00 Activity ADL Activity Unknown Kaye assistance 06-11 [place] required 09:20: [id number] 00 Activity self-care Activity Active Kaye deficit 06-11 [place] 09:20: [id number] 00 Medication oral med Meds Resolve 2019-06-24 Kaye assistance d 06-11 13:34:00 [place] required 09:20: [id number] 00 Musculoskel transfer Musculoske Resolve 2019-09-16 Kaye etal assistance letal d 06-11 13:52:00 [place] required 09:20: [id number] 00 Musculoskel requires Musculoske Resolve 2019-09-16 Kaye etal human letal d 06-11 13:52:00 [place] assist to 09:20: [id number] leave home 00 Activity ADL Activity Active Elizabeth A. assistance 07-08 [facility] required 14:57: e 00 [id number] Medication potential Meds Active Princess clinically 07-22 Seager significant 14:30: [id number] medication 00 issue Elimination urinary Eliminatio Resolve 2018-102019-09-16 Maria A incontinenc n d 11-02 13:52:00 Tree e 11:45: [employer] 00 [id number] Elimination urinary Eliminatio Active 2018-10 Maria A incontinenc n 12-01 Tree e 10:32: [employer] 00 [id number] Allergies, Adverse Reactions, Alerts Allergy Name Allergy Status Severity Reaction(s) Onset Inactive Treating Comments Type Date Date Clinician fentanyl Base Active Unknown Rash, Hives, 2016-10 Angy Ingredient itchy -16 Primitivo [id number] Sulfa Allergen Active Unknown Facial 2016-10 Angy (Sulfonamide Group Redness/ -16 Primitivo Antibiotics) Flushing [id number] baclofen Base Active Moderate Unknown 2016-10 Angy Ingredient 1-16 Primitivo [id number] nitrofuranto Base Active Unknown Reaction 2016-10 Angy in Ingredient Unknown 11-11 Primitivo [id number] rosuvastatin Base Active Unknown extreme Princess Ingredient fatigue and 2- Seager CP [id number] Medications Ordered Filled Start Stop Current Ordering [...] chewable tablet tablet rosuvastati rosuvastati 2018- No [place] Unknown Unknown n 5 mg n 5 mg 11-13 ,Kerry tablet tablet hydroxychlo hydroxychlo 2017-10- No Vi Unknown Unknown roquine 200 roquine 200 2- 07-17 Jr,Alonzo mg tablet mg tablet J Pepcid 20 Pepcid 20 2016-10 No [place] Unknown Unknown mg tablet mg tablet 11-03 Nabila BENSON rosuvastati rosuvastati No [place] Unknown Unknown n 5 mg n 5 mg 4- ,Kerry tablet tablet hydroxychlo hydroxychlo No Vi Unknown Unknown roquine 200 roquine 200 7-17 Jr,Alonzo mg tablet mg tablet J aspirin 325 aspirin 325 No [place] Unknown Unknown mg tablet mg tablet 06-11 Nabila BENSON lisinopril lisinopril 2018- No [place] Unknown Unknown 5 mg tablet 5 mg tablet 06-11 Nabila BENSON Privinil Privinil 2018-10 No [place] Unknown Unknown 0- Nabila BENSON Vital [...]
--- OUTSIDE RECORDS SUMMARY | 2019-12-15 17:09 | XMS REPORT ---
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 [id number] us, us, unspecified unspecified Pain in Pain in Diagnosis Active 2016-10 Jenelle right arm right arm 10-27 Wing [id number] Pain in Pain in Diagnosis Active 2016-10 Jenelle right lower right lower 10-27 Wing leg leg [id number] Contracture Contracture Diagnosis Active Jenelle , right , 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 [id number] Urinary Urinary Diagnosis Active 2016-10 Jenelle tract tract 11-03 Wing infection, infection, [id number] site not site not specified specified Hypertensiv Hypertensiv Diagnosis Active 2016-10 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 [id number] disease w disease w stg stg 1-4/unsp 1-4/unsp chr kdny chr kdny 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, disease, [id number] stage 2 stage 2 (mild) (mild) 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, disorder, [id number] single single episode, episode, unspecified unspecified Spinal Spinal Diagnosis Active Jenelle stenosis, stenosis, Wing site site [id number] unspecified unspecified 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, hip joint, [id number] bilateral bilateral Epilepsy, Epilepsy, Diagnosis Active Jenelle unsp, not unsp, not Wing intractable intractable [id number] , without , without status status epilepticus epilepticus 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 [id number] Pain frequent Pain Mgmt Resolve 2016-102019-04-23 Maria A pain d 11-03 15:40:00 Jaquan 14:09: [id number] 00 Nutrition nutritional Nutrition Resolve 2016-102017-09-30 Maria A restriction d 11-03 14:00:00 Jaquan s 14:09: [id number] 00 Elimination knowledge/s Eliminatio Resolve 2016-102017-09-30 Maria A kill n d 11-03 14:00:00 Jaquan deficit: pt 14:09: [id number] 00 Elimination urinary Eliminatio Resolve 2016-102017-09-30 Maria A incontinenc n d 11-03 14:00:00 Jaquan e 14:09: [id number] 00 Elimination UTI within Eliminatio Resolve 2016-102017-09-30 Maria A past 14 n d 11-03 14:00:00 Jaquan days 14:09: [id number] 00 Activity ADL Activity Unknown 2016-10 Quality assistance 11-03 Realtime required 14:09: 00 Safety risk for Safety Resolve 2016-102017-09-23 Maria A hospitaliza d 11-03 09:45:00 Jaquan tion 14:09: [id number] 00 Medication potential Meds Resolve 2016-102017-10-02 Maria A clinically d 11-03 13:30:00 Jaquan significant 14:09: [id number] medication 00 issue Medication oral med Meds Resolve 2016-102017-10-02 Maria A assistance d 11-03 13:30:00 Jaquan required 14:09: [id number] 00 Elimination recurring Eliminatio Resolve 2016-102017-09-30 Maria A UTI n d 11-10 14:00:00 Jaquan 14:00: [id number] 00 Safety risk for Safety Resolve 2016-102017-09-30 Maria A hospitaliza d 11-25 14:00:00 Jaquan tion 11:04: [id number] 00 Nutrition nutritional Nutrition Resolve 2016-102017-10-07 Maria A restriction d 12-03 11:06:00 Jaquan s 13:30: [id number] 00 Elimination urinary Eliminatio Resolve 2016-102017-10-02 Maria A incontinenc n d 12-03 13:30:00 Jaquan e 13:30: [id number] 00 Safety risk for Safety Resolve 2016-102017-10-07 Maria A hospitaliza d 12-03 11:06:00 Jaquan tion 13:30: [id number] 00 Elimination urinary Eliminatio Resolve 2016-102017-10-28 Maria A incontinenc n d 12-22 09:32:00 Jaquan e 10:14: [id number] 00 Elimination constipatio Eliminatio Resolve 2016-102017-10-28 Maria A n n d 12-22 09:32:00 Jaquan 10:14: [id number] 00 Pain frequent Pain Mgmt Unknown Maria A pain 10-28 Jaquan 09:32: [id number] 00 Activity ADL Activity Resolve 2018-02-10 Maria A assistance d 10-28 11:05:00 Jaquan required 09:32: [id number] 00 Elimination urinary Eliminatio Resolve 2017-12-17 Mehnaz incontinenc n d 11-04 11:35:00 [place] e 13:15: [id number] 00 Safety risk for Safety Active Mehnaz hospitaliza 11-04 [place] tion 13:15: [id number] 00 Safety can be left Safety Active Mehnaz alone for 11-04 Ugalde only short 13:15: [id number] periods 00 Elimination urinary Eliminatio Resolve 2018-02-26 Maria A incontinenc n d 12-31 12:00:00 Jaquan e 10:00: [id number] 00 Medication oral med Meds Resolve 2018-02-26 Maria A assistance d 12-31 12:00:00 Jaquan required 10:00: [id number] 00 Medication injectable Meds Resolve 2018-02-26 Maria A med d 12-31 12:00:00 Jaquan assistance 10:00: [id number] required 00 Elimination constipatio Eliminatio Resolve 2018-02-26 Maria A n n d 01-20 12:00:00 Jaquan 11:19: [id number] 00 Safety fire risk Safety Active Maria A present 04-11 Eliz 12:00: [id number] 00 Elimination urinary Eliminatio Resolve 2018-09-03 Maria A incontinenc n d 04-16 11:30:00 [place] e 11:56: [id number] 00 Medication oral med Meds Resolve 2018-12-24 Maria A assistance d 04-16 13:24:00 [place] required 11:56: [id number] 00 Safety fall risk Safety Active Maria A factor 06-25 Eliz present 14:00: [id number] 00 Pain frequent Pain Mgmt Unknown 2017-10 Maria A pain 10-28 Eliz 13:00: [id number] 00 Endo/López anti-coagul Endo/López Resolve 2017-102019-06-24 Mraia A ation d 11-03 13:34:00 [place] therapy 11:30: [id number] 00 Elimination urinary Eliminatio Resolve 2017-102019-02-22 Maria A incontinenc n d 14:30:00 Eliz e 14:34: [id number] 00 Nutrition nutritional Nutrition Active Princess restriction 2-14 Seager s 13:11: [id number] 00 Cardio chest pain Cardiovasc Resolve 2019-09-16 Maria A ular d 12-24 13:52:00 [place] 13:24: [id number] 00 Elimination urinary Eliminatio Resolve 2019-08-19 Maria A incontinenc n d 04-23 13:50:00 Eliz e 15:40: [id number] 00 Safety can be left Safety Unknown Maria A alone for 04-23 Eliz only short 15:40: [id number] periods 00 Pain frequent Pain Mgmt Resolve 2019-06-24 Kaye pain d 16 13:34:00 [place] 09:20: [id number] 00 Elimination UTI within Eliminatio Resolve 2019-08-19 Kaye past 14 n d 06-11 13:50:00 [place] days 09:20: [id number] 00 Elimination bowel Eliminatio Resolve 2019-08-19 Kaye incontinenc n d 06-11 13:50:00 [place] e 09:20: [id number] 00 Neuro confusion Neuro/Emot Active Kaye present ion 06-11 [place] 09:20: [id number] 00 Activity ADL Activity Unknown Kaye assistance 06-11 [place] required 09:20: [id number] 00 Activity self-care Activity Active Kaye deficit 06-11 [place] 09:20: [id number] 00 Medication oral med Meds Resolve 2019-06-24 Kaye assistance d 06-11 13:34:00 [place] required 09:20: [id number] 00 Musculoskel transfer Musculoske Resolve 2019-09-16 Kaye etal assistance letal d 06-11 13:52:00 [place] required 09:20: [id number] 00 Musculoskel requires Musculoske Resolve 2019-09-16 Kaye etal human letal d 06-11 13:52:00 [place] assist to 09:20: [id number] leave home 00 Activity ADL Activity Active Elizabeth A. assistance 07-08 [facility] required 14:57: e 00 [id number] Medication potential Meds Active Princess clinically 07-22 [place] significant 14:30: [id number] medication 00 issue Elimination urinary Eliminatio Resolve 2018-102019-09-16 Maria A incontinenc n d 11-02 13:52:00 Tree e 11:45: [employer] 00 [id number] Elimination urinary Eliminatio Active 2018-10 Maria A incontinenc n 12-01 Tree e 10:32: [employer] 00 [id number] Allergies, Adverse Reactions, Alerts Allergy Name Allergy Status Severity Reaction(s) Onset Inactive Treating Comments Type Date Date Clinician fentanyl Base Active Unknown Rash, Hives, 2016-10 Angy Ingredient itchy -16 Primitivo [id number] Sulfa Allergen Active Unknown Facial 2016-10 Angy (Sulfonamide Group Redness/ -16 Primitivo Antibiotics) Flushing [id number] baclofen Base Active Moderate Unknown 2016-10 Angy Ingredient 1-16 Primitivo [id number] nitrofuranto Base Active Unknown Reaction 2016-10 Angy in Ingredient Unknown 11-11 Primitivo [id number] rosuvastatin Base Active Unknown extreme Princess Ingredient fatigue and 2- Seager CP [id number] Medications Ordered Filled Start Stop Current Ordering [...] chewable tablet tablet rosuvastati rosuvastati 2018- No [place] Unknown Unknown n 5 mg n 5 mg 11-13- ,Kerry tablet tablet hydroxychlo hydroxychlo 2017-10- No Vi Unknown Unknown roquine 200 roquine 200 2- 07-17 Jr,Alonzo mg tablet mg tablet J Pepcid 20 Pepcid 20 2016-10 No [place] Unknown Unknown mg tablet mg tablet 11-03 ,Nabila rosuvastati rosuvastati No [place] Unknown Unknown n 5 mg n 5 [...] Unknown 0-03 ,Nabila sulfamethox sulfamethox 2018-10 Yes [place] Unknown Unknown azole 400 azole 400 2-30 [...]
--- OUTSIDE RECORDS SUMMARY | 2019-12-15 17:09 | XMS REPORT ---
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 [id number] us, us, unspecified unspecified Pain in Pain in Diagnosis Active 2016-10 Jenelle right arm right arm 10-27 Wing [id number] Pain in Pain in Diagnosis Active 2016-10 Jenelle right lower right lower 10-27 Wing leg leg [id number] Contracture Contracture Diagnosis Active Jenelle , right , 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 [id number] Urinary Urinary Diagnosis Active 2016-10 Jenelle tract tract 11-03 Wing infection, infection, [id number] site not site not specified specified Hypertensiv Hypertensiv Diagnosis Active 2016-10 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 kdny chr kdny 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, disease, 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 stage 2 stage 2 (mild) (mild) 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, disorder, [id number] single single episode, episode, unspecified unspecified Spinal Spinal Diagnosis Active Jenelle stenosis, stenosis, Wing site site [id number] unspecified unspecified 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, hip joint, [id number] bilateral bilateral Epilepsy, Epilepsy, Diagnosis Active Jenelle unsp, not unsp, not Wing intractable intractable [id number] , without , without status status epilepticus epilepticus 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 Pain frequent Pain Mgmt Resolve 2016-102019-04-23 Maria A pain d 11-03 15:40:00 Jaquan 14:09: [id number] 00 Nutrition nutritional Nutrition Resolve 2016-102017-09-30 Maria A restriction d 11-03 14:00:00 Jaquan s 14:09: [id number] 00 Elimination knowledge/s Eliminatio Resolve 2016-102017-09-30 Maria A kill n d 11-03 14:00:00 Jaquan deficit: pt 14:09: [id number] 00 Elimination urinary Eliminatio Resolve 2016-102017-09-30 Maria A incontinenc n d 11-03 14:00:00 Jaquan e 14:09: [id number] 00 Elimination UTI within Eliminatio Resolve 2016-102017-09-30 Maria A past 14 n d 11-03 14:00:00 Jaquan days 14:09: [id number] 00 Activity ADL Activity Unknown 2016-10 Quality assistance 11-03 Realtime required 14:09: 00 Safety risk for Safety Resolve 2016-102017-09-23 Maria A hospitaliza d 11-03 09:45:00 Jaquan tion 14:09: [id number] 00 Medication potential Meds Resolve 2016-102017-10-02 Maria A clinically d 11-03 13:30:00 Jaquan significant 14:09: [id number] medication 00 issue Medication oral med Meds Resolve 2016-102017-10-02 Maria A assistance d 11-03 13:30:00 Jaquan required 14:09: [id number] 00 Elimination recurring Eliminatio Resolve 2016-102017-09-30 Maria A UTI n d 11-10 14:00:00 Jaquan 14:00: [id number] 00 Safety risk for Safety Resolve 2016-102017-09-30 Maria A hospitaliza d 11-25 14:00:00 Jaquan tion 11:04: [id number] 00 Nutrition nutritional Nutrition Resolve 2016-102017-10-07 Maria A restriction d 12-03 11:06:00 Jaquan s 13:30: [id number] 00 Elimination urinary Eliminatio Resolve 2016-102017-10-02 Maria A incontinenc n d 12-03 13:30:00 Jaquan e 13:30: [id number] 00 Safety risk for Safety Resolve 2016-102017-10-07 Maria A hospitaliza d 12-03 11:06:00 Jaquan tion 13:30: [id number] 00 Elimination urinary Eliminatio Resolve 2016-102017-10-28 Maria A incontinenc n d 12-22 09:32:00 Jaquan e 10:14: [id number] 00 Elimination constipatio Eliminatio Resolve 2016-102017-10-28 Maria A n n d 12-22 09:32:00 Jaquan 10:14: [id number] 00 Pain frequent Pain Mgmt Unknown Maria A pain 10-28 Jaquan 09:32: [id number] 00 Activity ADL Activity Resolve 2018-02-10 Maria A assistance d 10-28 11:05:00 Jaquan required 09:32: [id number] 00 Elimination urinary Eliminatio Resolve 2017-12-17 Mehnaz incontinenc n d 11-04 11:35:00 [place]gal[place] e 13:15: [id number] 00 Safety risk for Safety Active Mehnaz hospitaliza 11-04 Ugalde tion 13:15: [id number] 00 Safety can be left Safety Active Mehnaz alone for 11-04 Ugalde only short 13:15: [id number] periods 00 Elimination urinary Eliminatio Resolve 2018-02-26 Maria A incontinenc n d 12-31 12:00:00 Jaquan e 10:00: [id number] 00 Medication oral med Meds Resolve 2018-02-26 Maria A assistance d 12-31 12:00:00 Jaquan required 10:00: [id number] 00 Medication injectable Meds Resolve 2018-02-26 Maria A med d 12-31 12:00:00 Jaquan assistance 10:00: [id number] required 00 Elimination constipatio Eliminatio Resolve 2018-02-26 Maria A n n d 01-20 12:00:00 Jaquan 11:19: [id number] 00 Safety fire risk Safety Active Maria A present 04-11 Eliz 12:00: [id number] 00 Elimination urinary Eliminatio Resolve 2018-09-03 Maria A incontinenc n d 04-16 11:30:00 [place] e 11:56: [id number] 00 Medication oral med Meds Resolve 2018-12-24 Maria A assistance d 04-16 13:24:00 [place] required 11:56: [id number] 00 Safety fall risk Safety Active Maria A factor 06-25 Eliz present 14:00: [id number] 00 Pain frequent Pain Mgmt Unknown 2017-10 Maria A pain 10-28 Eliz 13:00: [id number] 00 Endo/López anti-coagul Endo/López Resolve 2017-102019-06-24 Maria A ation d 11-03 13:34:00 [place] therapy 11:30: [id number] 00 Elimination urinary Eliminatio Resolve 2017-102019-02-22 Maria A incontinenc n d 14:30:00 Eliz e 14:34: [id number] 00 Nutrition nutritional Nutrition Active Princess restriction 2-14 Seager s 13:11: [id number] 00 Cardio chest pain Cardiovasc Resolve 2019-09-16 Maria A ular d 12-24 13:52:00 [place] 13:24: [id number] 00 Elimination urinary Eliminatio Resolve 2019-08-19 Maria A incontinenc n d 04-23 13:50:00 Eliz e 15:40: [id number] 00 Safety can be left Safety Unknown Maria A alone for 04-23 Eliz only short 15:40: [id number] periods 00 Pain frequent Pain Mgmt Resolve 2019-06-24 Kaye pain d 16 13:34:00 [place] 09:20: [id number] 00 Elimination UTI within Eliminatio Resolve 2019-08-19 Kaye past 14 n d 06-11 13:50:00 [place] days 09:20: [id number] 00 Elimination bowel Eliminatio Resolve 2019-08-19 Kaye incontinenc n d 06-11 13:50:00 [place] e 09:20: [id number] 00 Neuro confusion Neuro/Emot Active Kaye present ion 06-11 [place] 09:20: [id number] 00 Activity ADL Activity Unknown Kaye assistance 06-11 [place] required 09:20: [id number] 00 Activity self-care Activity Active Kaye deficit 06-11 [place] 09:20: [id number] 00 Medication oral med Meds Resolve 2019-06-24 Kaye assistance d 06-11 13:34:00 [place] required 09:20: [id number] 00 Musculoskel transfer Musculoske Resolve 2019-09-16 Kaye etal assistance letal d 06-11 13:52:00 [place] required 09:20: [id number] 00 Musculoskel requires Musculoske Resolve 2019-09-16 Kaye etal human letal d 06-11 13:52:00 [place] assist to 09:20: [id number] leave home 00 Activity ADL Activity Active Elizabeth A. assistance 07-08 [facility] required 14:57: e 00 [id number] Medication potential Meds Active Princess clinically 07-22 Seager significant 14:30: [id number] medication 00 issue Elimination urinary Eliminatio Resolve 2018-102019-09-16 Maria A incontinenc n d 11-02 13:52:00 Tree e 11:45: [employer] 00 [id number] Elimination urinary Eliminatio Active 2018-10 Maria A incontinenc n 12-01 Tree e 10:32: [employer] 00 [id number] Allergies, Adverse Reactions, Alerts Allergy Name Allergy Status Severity Reaction(s) Onset Inactive Treating Comments Type Date Date Clinician fentanyl Base Active Unknown Rash, Hives, 2016-10 Angy Ingredient itchy -16 Primitivo [id number] Sulfa Allergen Active Unknown Facial 2016-10 Angy (Sulfonamide Group Redness/ -16 Primitivo Antibiotics) Flushing [id number] baclofen Base Active Moderate Unknown 2016-10 Angy Ingredient 1-16 Primitivo [id number] nitrofuranto Base Active Unknown Reaction 2016-10 Angy in Ingredient Unknown 11-11 Primitivo [id number] rosuvastatin Base Active Unknown extreme Princess Ingredient fatigue and 2- Seager CP [id number] Medications Ordered Filled Start Stop Current Ordering [...] chewable tablet tablet rosuvastati rosuvastati 2018- No [place] Unknown Unknown n 5 mg n 5 mg 11-13- ,Kerry tablet tablet hydroxychlo hydroxychlo 2017-10- No Vi Unknown Unknown roquine 200 roquine 200 2- 07-17 Jr,Alonzo mg tablet mg tablet J Pepcid 20 Pepcid 20 2016-10 No Bruce Unknown Unknown mg tablet mg tablet 11-03 ,Nabila rosuvastati rosuvastati No [place] Unknown Unknown n 5 mg n 5 [...] Unknown 0-03 ,Nabila sulfamethox sulfamethox 2018-10 Yes [place] Unknown Unknown azole 400 azole 400 2-30 [...]
--- OUTSIDE RECORDS SUMMARY | 2019-12-15 17:09 | XMS REPORT ---
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 [id number] us, us, unspecified unspecified Pain in Pain in Diagnosis Active 2016-10 Jenelle right arm right arm 10-27 Wing [id number] Pain in Pain in Diagnosis Active 2016-10 Jenelle right lower right lower 10-27 Wing leg leg [id number] Contracture Contracture Diagnosis Active Jenelle , right , 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 [id number] Urinary Urinary Diagnosis Active 2016-10 Jenelle tract tract 11-03 Wing infection, infection, [id number] site not site not specified specified Hypertensiv Hypertensiv Diagnosis Active 2016-10 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 [id number] disease w disease w stg stg 1-4/unsp 1-4/unsp chr kdny chr kdny 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, disease, [id number] stage 2 stage 2 (mild) (mild) 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, disorder, [id number] single single episode, episode, unspecified unspecified Spinal Spinal Diagnosis Active Jenelle stenosis, stenosis, Wing site site [id number] unspecified unspecified 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, hip joint, [id number] bilateral bilateral Epilepsy, Epilepsy, Diagnosis Active Jenelle unsp, not unsp, not Wing intractable intractable [id number] , without , without status status epilepticus epilepticus 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 [id number] Pain frequent Pain Mgmt Resolve 2016-102019-04-23 Maria A pain d 11-03 15:40:00 Jaquan 14:09: [id number] 00 Nutrition nutritional Nutrition Resolve 2016-102017-09-30 Maria A restriction d 11-03 14:00:00 Jaquan s 14:09: [id number] 00 Elimination knowledge/s Eliminatio Resolve 2016-102017-09-30 Maria A kill n d 11-03 14:00:00 Jaquan deficit: pt 14:09: [id number] 00 Elimination urinary Eliminatio Resolve 2016-102017-09-30 Maria A incontinenc n d 11-03 14:00:00 Jaquan e 14:09: [id number] 00 Elimination UTI within Eliminatio Resolve 2016-102017-09-30 Maria A past 14 n d 11-03 14:00:00 Jaquan days 14:09: [id number] 00 Activity ADL Activity Unknown 2016-10 Quality assistance 11-03 Realtime required 14:09: 00 Safety risk for Safety Resolve 2016-102017-09-23 Maria A hospitaliza d 11-03 09:45:00 Jaquan tion 14:09: [id number] 00 Medication potential Meds Resolve 2016-102017-10-02 Maria A clinically d 11-03 13:30:00 Jaquan significant 14:09: [id number] medication 00 issue Medication oral med Meds Resolve 2016-102017-10-02 Maria A assistance d 11-03 13:30:00 Jaquan required 14:09: [id number] 00 Elimination recurring Eliminatio Resolve 2016-102017-09-30 Maria A UTI n d 11-10 14:00:00 Jaquan 14:00: [id number] 00 Safety risk for Safety Resolve 2016-102017-09-30 Maria A hospitaliza d 11-25 14:00:00 Jaquan tion 11:04: [id number] 00 Nutrition nutritional Nutrition Resolve 2016-102017-10-07 Maria A restriction d 12-03 11:06:00 Jaquan s 13:30: [id number] 00 Elimination urinary Eliminatio Resolve 2016-102017-10-02 Maria A incontinenc n d 12-03 13:30:00 Jaquan e 13:30: [id number] 00 Safety risk for Safety Resolve 2016-102017-10-07 Maria A hospitaliza d 12-03 11:06:00 Jaquan tion 13:30: [id number] 00 Elimination urinary Eliminatio Resolve 2016-102017-10-28 Maria A incontinenc n d 12-22 09:32:00 Jaquan e 10:14: [id number] 00 Elimination constipatio Eliminatio Resolve 2016-102017-10-28 Maria A n n d 12-22 09:32:00 Jaquan 10:14: [id number] 00 Pain frequent Pain Mgmt Unknown Maria A pain 10-28 Jaquan 09:32: [id number] 00 Activity ADL Activity Resolve 2018-02-10 Maria A assistance d 10-28 11:05:00 Jaquan required 09:32: [id number] 00 Elimination urinary Eliminatio Resolve 2017-12-17 Mehnaz incontinenc n d 11-04 11:35:00 [place]gal[place] e 13:15: [id number] 00 Safety risk for Safety Active Mehnaz hospitaliza 11-04 Ugalde tion 13:15: [id number] 00 Safety can be left Safety Active Mehnaz alone for 11-04 Ugalde only short 13:15: [id number] periods 00 Elimination urinary Eliminatio Resolve 2018-02-26 Maria A incontinenc n d 12-31 12:00:00 Jaquan e 10:00: [id number] 00 Medication oral med Meds Resolve 2018-02-26 Maria A assistance d 12-31 12:00:00 Jaquan required 10:00: [id number] 00 Medication injectable Meds Resolve 2018-02-26 Maria A med d 12-31 12:00:00 Jaquan assistance 10:00: [id number] required 00 Elimination constipatio Eliminatio Resolve 2018-02-26 Maria A n n d 01-20 12:00:00 Jaquan 11:19: [id number] 00 Safety fire risk Safety Active Maria A present 04-11 Eliz 12:00: [id number] 00 Elimination urinary Eliminatio Resolve 2018-09-03 Maria A incontinenc n d 04-16 11:30:00 Eliz e 11:56: [id number] 00 Medication oral med Meds Resolve 2018-12-24 Maria A assistance d 04-16 13:24:00 [place] required 11:56: [id number] 00 Safety fall risk Safety Active Maria A factor 06-25 [place] present 14:00: [id number] 00 Pain frequent Pain Mgmt Unknown 2017-10 Maria A pain 10-28 Eliz 13:00: [id number] 00 Endo/López anti-coagul Endo/López Resolve 2017-102019-06-24 Maria A ation d 11-03 13:34:00 [place] therapy 11:30: [id number] 00 Elimination urinary Eliminatio Resolve 2017-102019-02-22 Maria A incontinenc n d 14:30:00 Eliz e 14:34: [id number] 00 Nutrition nutritional Nutrition Active Princess restriction 2-14 Seager s 13:11: [id number] 00 Cardio chest pain Cardiovasc Resolve 2019-09-16 Maria A ular d 12-24 13:52:00 [place] 13:24: [id number] 00 Elimination urinary Eliminatio Resolve 2019-08-19 Maria A incontinenc n d 04-23 13:50:00 Eliz e 15:40: [id number] 00 Safety can be left Safety Unknown Maria A alone for 04-23 [place] only short 15:40: [id number] periods 00 Pain frequent Pain Mgmt Resolve 2019-06-24 Kaye pain d 16 13:34:00 [place] 09:20: [id number] 00 Elimination UTI within Eliminatio Resolve 2019-08-19 Kaye past 14 n d 06-11 13:50:00 [place] days 09:20: [id number] 00 Elimination bowel Eliminatio Resolve 2019-08-19 Kaye incontinenc n d 06-11 13:50:00 Christoph e 09:20: [id number] 00 Neuro confusion Neuro/Emot Active Kaye present ion 06-11 [place] 09:20: [id number] 00 Activity ADL Activity Unknown Kaye assistance 06-11 [place] required 09:20: [id number] 00 Activity self-care Activity Active Kaye deficit 06-11 [place] 09:20: [id number] 00 Medication oral med Meds Resolve 2019-06-24 Kaye assistance d 06-11 13:34:00 [place] required 09:20: [id number] 00 Musculoskel transfer Musculoske Resolve 2019-09-16 Kaye etal assistance letal d 06-11 13:52:00 [place] required 09:20: [id number] 00 Musculoskel requires Musculoske Resolve 2019-09-16 Kaye etal human letal d 06-11 13:52:00 [place] assist to 09:20: [id number] leave home 00 Activity ADL Activity Active Elizabeth A. assistance 07-08 [facility] required 14:57: e 00 [id number] Medication potential Meds Active Princess clinically 07-22 [place]ager significant 14:30: [id number] medication 00 issue Elimination urinary Eliminatio Resolve 2018-102019-09-16 Maria A incontinenc n d 11-02 13:52:00 Tree e 11:45: [employer] 00 [id number] Elimination urinary Eliminatio Active 2018-10 Maria A incontinenc n 12-01 Tree e 10:32: [employer] 00 [id number] Allergies, Adverse Reactions, Alerts Allergy Name Allergy Status Severity Reaction(s) Onset Inactive Treating Comments Type Date Date Clinician fentanyl Base Active Unknown Rash, Hives, 2016-10 Angy Ingredient itchy -16 Primitivo [id number] Sulfa Allergen Active Unknown Facial 2016-10 Angy (Sulfonamide Group Redness/ -16 Primitivo Antibiotics) Flushing [id number] baclofen Base Active Moderate Unknown 2016-10 Angy Ingredient 1-16 Primitivo [id number] nitrofuranto Base Active Unknown Reaction 2016-10 Angy in Ingredient Unknown 11-11 Primitivo [id number] rosuvastatin Base Active Unknown extreme Princess Ingredient fatigue and 2- Seager CP [id number] Medications Ordered Filled Start Stop Current Ordering [...] tablet mg tablet amLODIPine amLODIPine 2016-10 No Brcue 1 tab Unknown 5 mg tablet 5 [...] No Bruce Unknown Unknown cetaminophe cetaminophe 0- ,aNbila n 5 mg-325 n 5 mg-325 mg tablet mg tablet hydroxychlo hydroxychlo 2017-10- No Vi Unknown Unknown roquine 200 roquine 200 2-11-12 Jr,Alonzo mg tablet mg tablet J calcium calcium No Bruce Unknown Unknown carbonate carbonate 1- ,Nabila 600 600 mg(1,500 mg(1,500 mg)-vitamin mg)-vitamin D3 800 unit D3 800 unit chewable chewable tablet tablet rosuvastati rosuvastati 2018- No [place] Unknown Unknown n 5 mg n 5 mg 11-13- ,Kerry tablet tablet hydroxychlo hydroxychlo 2017-10- No Vi Unknown Unknown roquine 200 roquine 200 2- 07-17 Jr,Alonzo mg tablet mg tablet J Pepcid 20 Pepcid 20 2016-10 No Bruce Unknown Unknown mg tablet mg tablet 11-03 ,Nabila rosuvastati rosuvastati No [place] Unknown Unknown n 5 mg n 5 [...] Unknown 0-03 ,Nabila sulfamethox sulfamethox 2018-10 Yes [place] Unknown Unknown azole 400 azole 400 2-30 [...]
[2019-12-15 17:25] VITALS: BP 109/71
[2019-12-15] MEDS ORDERED: NS 0.9% 1000 ML** 1,000 ML IV ONE (18:37)
--- NOTE | 2019-12-15 18:37 | UC ---
Skin Complaint HPI - HPI Summary HPI Summary: FOR THE PAST SEVERAL DAYS PATIENT HAS HAD OVERALL MALAISE AND FATIGUE. HAS BEEN SEEING SPOTS. H/O CVA WITH RIGHT SIDED CONTRACTURES. ON ARRIVAL TO THE SHE APPEARS WEAK AND PALE. HER PRIMARY COMPLAINT IS OF A DRAINING PAINFUL LESION ON THE LEFT POSTERIOR SIDE OF HER NECK. NO FEVER. NO NAUSEA. - History of Current Complaint Chief Complaint: UCSkin Time Seen by Provider: 12/15/19 18:10 Stated Complaint: ABCESS ON NECK Hx Obtained From: Patient Onset/Duration: Gradual Onset, Lasting Days, Still Present Timing: Constant Onset Severity: Moderate Current Severity: Moderate Pain Intensity: 3 Pain Scale Used: 0-10 Numeric Character: Raised, Painful Aggravating Factor(s): Nothing Alleviating Factor(s): Nothing Associated Signs & Symptoms: Positive: Weakness - Allergy/Home Medications Allergies/Adverse Reactions: Allergies Allergy/AdvReac Type Severity Reaction Status Date / Time fentanyl Allergy rash, Verified 12/15/19 19:43 hives, itchy Sulfa (Sulfonamide Allergy Facial Verified 12/15/19 19:43 Antibiotics) Redness/Flushing baclofen AdvReac Intermediate Altered Verified 12/15/19 19:43 Mental Status nitrofurantoin AdvReac Intermediate Leukopenia/ Verified 12/15/19 19:43 neutropenia Home Medications: Home Medications PHENobarbital TAB(*) 64.8 mg PO BID 09/07/13 [History Confirmed 12/15/19] Hydroxychloroquine TAB* [Plaquenil TAB*] 200 mg PO BID WITH MEALS tab 04/03/17 [Rx Confirmed 12/15/19] Acetaminophen TAB* [Tylenol TAB*] 650 mg PO Q6H PRN #90 tab MDD 4 08/14/18 [Rx Confirmed 12/15/19] Famotidine TAB* [Pepcid 20 MG TAB*] 1 tab PO BEDTIME 12/09/18 [History Confirmed 12/15/19] Aspirin EC TAB* [Ecotrin EC TAB*] 325 mg PO QAM 07/12/19 [History Confirmed ] Calcium Carbonate/Vitamin D3 [Calcium 600-Vit D3 800 Caplet] 1 tab.chew PO BID 08/19/19 [History Confirmed 12/15/19] Gabapentin TAB(NF) [Neurontin 600 mg TAB(NF)] 600 mg PO BID 08/19/19 [History Confirmed 12/15/19] Lisinopril TAB* [Prinivil TAB*] 5 mg PO DAILY 08/19/19 [History Confirmed ] Nebivolol TAB (NF) [Bystolic TAB (NF)] 5 mg PO DAILY 08/19/19 [History Confirmed 12/15/19] Rosuvastatin (NF) [Crestor (NF)] 5 mg PO MOWEFR 08/19/19 [History Confirmed ] amLODIPine TAB* [Norvasc 5 mg TAB*] 10 mg PO DAILY 08/19/19 [History Confirmed 12/15/19] oxyCODONE/Acetamin 5/325 MG* [Percocet 5/325 TAB*] 1 tab PO Q6H PRN 08/19/19 [ History Confirmed 12/15/19] PMH/Surg Hx/FS Hx/Imm Hx Endocrine History: Dyslipidemia Cardiovascular History: Hypertension Neurological History: CVA, Seizures Other History Of: Anticoagulant Therapy - Surgical History Surgical History: Yes Surgery Procedure, Year, and Place: BILAT HIP REPLACEMENT;. HYSTERECTOMY;. OOPHERECTOMY;. VAGINAL ABSCESS I&D. BREAST SURGERY - Family History Known Family History: Positive: Cardiac Disease, Hypertension, Diabetes - Social History Alcohol Use: None Substance Use Type: None Smoking Status (MU): Former Smoker Amount Used/How Often: only smoked for weeks Have You Smoked in the Last Year: No When Did the Patient Quit Smoking/Using Tobacco: years ago - Immunization History Most Recent Influenza Vaccination: 2018 Most Recent Tetanus Shot: pt doesn't know Most Recent Pneumonia Vaccination: never Review of Systems All Other Systems Reviewed And Are Negative: Yes Constitutional: Positive: Fatigue Skin: Positive: Other - HEAPED UP LESION BACK OF NECK Eyes: Positive: Other - SEEING SPOTS Respiratory: Positive: Negative Cardiovascular: Positive: Negative Gastrointestinal: Positive: Negative Neurological/Mental Status: Positive: Weakness Physical Exam Triage Information Reviewed: Yes Appearance: No Pain Distress, Well-Nourished, Ill-Appearing - APPEARS PALE, WEAK , TEARFUL Vital Signs: Initial Vital Signs Temp 96.8 F 12/15/19 17:15 Pulse 78 12/15/19 17:15 Resp 18 12/15/19 17:15 BP 109/71 12/15/19 17:15 Pulse Ox 100 12/15/19 17:15 Vital Signs Reviewed: Yes Eyes: Positive: Conjunctiva Clear ENT: Positive: Hearing grossly normal Neck: Positive: Supple Respiratory: Positive: No respiratory distress, No accessory muscle use Cardiovascular: Positive: Pulses Normal Abdomen Description: Positive: Soft Musculoskeletal: Positive: No Edema, Other: - RIGHT UPPER EXTREMITY CONTRACTED Neurological: Positive: Alert Psychological: Positive: Age Appropriate Behavior Skin: Positive: Other - 2CM HEAPED UP SCALY LESION WITH CENTRAL OOZING ON LEFT POSTERIOR NECK Course/Dx - Course Course Of Treatment: I SUSPECT PATIENT HAS A 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 PATIENT IS FATIGUED, PALE, EMOTIONALLY LABILE AND COMPLAINING OF OVERALL FATIGUE AND WEAKNESS OVER THE PAST COUPLE OF DAYS. SHE'S BEEN HAVING SOME VISUAL DISTURBANCES INTERMITTENTLY DESCRIBED SEEING SQUARES AND DOTS IN HER VISUAL HUITRON. HAS A HISTORY OF CVA IN THE PAST. I FEEL SHE WOULD BENEFIT FROM FURTHER EVALUATION IN THE EMERGENCY ROOM FOR AT LEAST BASELINE LABS. - Diagnoses Provider Diagnosis: Malaise and fatigue, Skin lesion of neck - Physician Notification/Consults Discussed Patient Care With: Gina Kyle - [place] [facility] [place] Time Discussed With Above Provider: 18:50 Instructed by Provider To: MD Will See In ED Discharge ED - Sign-Out/Discharge Documenting (check all that apply): Patient Departure All imaging exams completed and their final reports reviewed: No Studies - Discharge Plan Condition: Stable Disposition: TRANS HIGHER LVL OF CARE FAC Referrals: Nabila Barrera MD [Primary Care Provider] - - Billing Disposition and Condition Condition: STABLE Disposition: Trans Higher Lvl of Care Fac
== END 2019-12-15 19:00 | disposition short-term general hospital (02) ==
LOC: UCEAST 16:58
DX: R53.83 Other fatigue (principal); R53.81 Other malaise; L98.8 Other specified disorders of the skin and subcutaneous tissue; I10 Essential (primary) hypertension; E78.5 Hyperlipidemia, unspecified; I63.9 Cerebral infarction, unspecified; Z88.1 Allergy status to other antibiotic agents; Z79.82 Long term (current) use of aspirin; Z79.899 Other long term (current) drug therapy; Z87.891 Personal history of nicotine dependence; Z88.2 Allergy status to sulfonamides; Z88.8 Allergy status to other drugs, medicaments and biological substances; Z88.5 Allergy status to narcotic agent
CPT/HCPCS: 99213; G0463

== ENCOUNTER 2019-12-15 19:22 | Emergency (ER) | payer MEDICARE, MEDICAID, OTHER ==
--- NOTE | 2019-12-15 19:35 | ED ---
Skin Complaint - HPI Summary HPI Summary: Patient is a 59 y/o F presenting to [facility] via EMS with complaints of left posterior neck lesion. She states that the area has been draining. Lesion has been present for the past 2-3 weeks. She was evaluated at urgent care and sent to ED for further workup. No similar previous episodes are noted. Patient reports subjective fever. PMHx of HTN and CVA noted. Some deficits from CVA are still present. Home medications and allergies are reviewed. Home Medications Medication Instructions Recorded Confirmed Type PHENobarbital TAB(*) 64.8 mg PO BID 09/07/13 12/15/19 History Hydroxychloroquine TAB* [Plaquenil 200 mg PO BID WITH MEALS tab 04/03/17 Rx TAB*] Acetaminophen TAB* [Tylenol TAB*] 650 mg PO Q6H PRN #90 tab MDD 4 08/14/1812/15 Rx Famotidine TAB* [Pepcid 20 MG TAB*] 1 tab PO BEDTIME 12/09/18 12/15/19 History Aspirin EC TAB* [Ecotrin EC TAB*] 325 mg PO QAM 07/12/19 12/15/19 History Calcium Carbonate/Vitamin D3 1 tab.chew PO BID 08/19/19 12/15/19 History [Calcium 600-Vit D3 800 Caplet] Gabapentin TAB(NF) [Neurontin 600 600 mg PO BID 08/19/19 12/15/19 History mg TAB(NF)] Lisinopril TAB* [Prinivil TAB*] 5 mg PO DAILY 08/19/19 12/15/19 History Nebivolol TAB (NF) [Bystolic TAB 5 mg PO DAILY 08/19/19 12/15/19 History (NF)] Rosuvastatin (NF) [Crestor (NF)] 5 mg PO MOWEFR 08/19/19 12/15/19 History amLODIPine TAB* [Norvasc 5 mg TAB*] 10 mg PO DAILY 08/19/19 12/15/19 History oxyCODONE/Acetamin 5/325 MG* 1 tab PO Q6H PRN 08/19/19 12/15/19 History [Percocet 5/325 TAB*] - History of Current Complaint Time Seen by Provider: 12/15/19 19:28 Stated Complaint: NECK ABSCESS PER EMS Hx Obtained From: Patient Onset/Duration: Started Weeks Ago, Still Present Skin Exposure Onset/Duration: Weeks Ago Timing: Constant, Lasting Weeks Pain Scale Used: 0-10 Numeric Skin Location: Neck - left posterior Associated Signs & Symptoms: Fever, Drainage - Additional Pertinent History Primary Care Physician: FLORA - Allergy/Home Medications Allergies/Adverse Reactions: Allergies Allergy/AdvReac Type Severity Reaction Status Date / Time fentanyl Allergy rash, Verified 12/15/19 19:43 hives, itchy Sulfa (Sulfonamide Allergy Facial Verified 12/15/19 19:43 Antibiotics) Redness/Flushing baclofen AdvReac Intermediate Altered Verified 12/15/19 19:43 Mental Status nitrofurantoin AdvReac Intermediate Leukopenia/ Verified 12/15/19 19:43 neutropenia Home Medications: Home Medications PHENobarbital TAB(*) 64.8 mg PO BID 09/07/13 [History Confirmed 12/15/19] Hydroxychloroquine TAB* [Plaquenil TAB*] 200 mg PO BID WITH MEALS tab 04/03/17 [Rx Confirmed 12/15/19] Acetaminophen TAB* [Tylenol TAB*] 650 mg PO Q6H PRN #90 tab MDD 4 08/14/18 [Rx Confirmed 12/15/19] Famotidine TAB* [Pepcid 20 MG TAB*] 1 tab PO BEDTIME 12/09/18 [History Confirmed 12/15/19] Aspirin EC TAB* [Ecotrin EC TAB*] 325 mg PO QAM 07/12/19 [History Confirmed ] Calcium Carbonate/Vitamin D3 [Calcium 600-Vit D3 800 Caplet] 1 tab.chew PO BID 08/19/19 [History Confirmed 12/15/19] Gabapentin TAB(NF) [Neurontin 600 mg TAB(NF)] 600 mg PO BID 08/19/19 [History Confirmed 12/15/19] Lisinopril TAB* [Prinivil TAB*] 5 mg PO DAILY 08/19/19 [History Confirmed ] Nebivolol TAB (NF) [Bystolic TAB (NF)] 5 mg PO DAILY 08/19/19 [History Confirmed 12/15/19] Rosuvastatin (NF) [Crestor (NF)] 5 mg PO MOWEFR 08/19/19 [History Confirmed ] amLODIPine TAB* [Norvasc 5 mg TAB*] 10 mg PO DAILY 08/19/19 [History Confirmed 12/15/19] oxyCODONE/Acetamin 5/325 MG* [Percocet 5/325 TAB*] 1 tab PO Q6H PRN 08/19/19 [ History Confirmed 12/15/19] PMH/Surg Hx/FS Hx/Imm Hx Endocrine/Hematology History: Reports: Hx Anticoagulant Therapy, Hx Systemic Lupus Erythematosus, Hx Thyroid Disease - THYROIDECTOMY, Hx Anemia - HISTORY Denies: Hx Bone Marrow Disease, Hx Diabetes, Hx Sickle Cell Disease Cardiovascular History: Reports: Hx Angina, Hx Deep Vein Thrombosis, Hx Hypertension, Hx Syncope, Other Cardiovascular Problems/Disorders - STROKE Denies: Hx Congestive Heart Failure, Hx Myocardial Infarction, Hx Pacemaker/ ICD, Hx Rheumatic Fever, Hx Valvular Heart Disease Comment Only: Hx Hypercholesterolemia - unkown Respiratory History: Reports: Hx Pulmonary Embolism Denies: Hx Asthma, Hx Sleep Apnea, Other Respiratory Problems/Disorders GI History: Reports: Hx Gastroesophageal Reflux Disease, Hx Hiatal Hernia, Hx Irritable Bowel Denies: Hx Jaundice History: Reports: Hx Chronic Renal Failure - stage 2, Hx Kidney Infection, Other Problems/Disorders - UTI, vag abscess. SEES DR. Lozano ABOUT KIDNEYS Denies: Hx Renal Disease Musculoskeletal History: Reports: Hx Arthritis, Hx Back Problems, Hx Orthopedic Injury, Other Musculoskeletal History - osteopenia, r hip pain x 1 year, l hip hemiarthroplasty Denies: Hx Tendonitis Sensory History: Reports: Hx Cataracts, Hx Contacts or Glasses - GLASSES SOMETIMES, Hx Deafness - ZUNI in right ear, Hx Hearing Problem - right hear clogged, Other Sensory Impairments - right hemiparesis secondary to CVA Hx Denies: Hx Glaucoma, Hx Hearing Aid Opthamlomology History: Reports: Hx Cataracts, Hx Contacts or Glasses - GLASSES SOMETIMES, Other Sensory Impairments - right hemiparesis secondary to CVA Hx Denies: Hx Glaucoma Neurological History: Reports: Hx CVA - with right hemiplegia , Hx Headaches, Hx Migraine, Hx Seizures, Hx Transient Ischemic Attacks (TIA), Other Neuro Impairments/Disorders - LUPUS Denies: Hx Nerve Disease Psychiatric History: Reports: Hx Anxiety, Hx Depression Denies: Hx Panic Disorder - Cancer History Hx Chemotherapy: No Hx Radiation Therapy: No - Surgical History Surgery Procedure, Year, and Place: BILAT HIP REPLACEMENT;. HYSTERECTOMY;. OOPHERECTOMY;. VAGINAL ABSCESS I&D. BREAST SURGERY Hx Anesthesia Reactions: No - Immunization History Date of Tetanus Vaccine: unk Date of Influenza Vaccine: unk Infectious Disease History: Reports: Hx of Known/Suspected MRSA, Hx Shingles, History Other Infectious Disease - herpes Denies: Hx Clostridium Difficile, Hx Hepatitis, Hx Tuberculosis, Hx Known/ Suspected VRE, Hx Known/Suspected VRSA - Family History Known Family History: Positive: Cardiac Disease, Hypertension, Diabetes - Social History Alcohol Use: None Hx Substance Use: No Substance Use Type: Reports: None Hx Tobacco Use: No Smoking Status (MU): Former Smoker Amount Used/How Often: only smoked for weeks Have You Smoked in the Last Year: No Review of Systems Positive: Fever Skin: Other - positive - lesion at left posterior neck, drainage reported All Other Systems Reviewed And Are Negative: Yes Physical Exam - Summary Physical Exam Summary: Constitutional: Well-developed, Well-nourished, Alert. (-) Distressed Skin: Raised lesion with a central ulcerated region to the back of the neck noted HENT: Normocephalic; Atraumatic Eyes: Conjunctiva normal Neck: Musculoskeletal ROM normal neck. (-) JVD, (-) Stridor, (-) Tracheal deviation Cardio: Rhythm regular, rate normal, Heart sounds normal; Intact distal pulses; Radial pulses are 2+ and symmetric. (-) Murmur Pulmonary/Chest wall: Effort normal. (-) Respiratory distress, (-) Wheezes, (-) Rales Abd: Soft, (-) tenderness, (-) Distension, (-) Guarding, (-) Rebound Musculoskeletal: (-) Edema Lymph: (-) Cervical adenopathy Neuro: Alert, Oriented x3; patient speaks with some expressive aphasia but is able to state full sentences periodically Psych: Mood and affect Normal Triage Information Reviewed: Yes Vital Signs Reviewed: Yes Procedures - Sedation Patient Received Moderate/Deep Sedation with Procedure: No Diagnostics - Laboratory Result Diagrams: 12/15/19 21:15 12/15/19 21:15 Lab Statement: Any lab studies that have been ordered have been reviewed, and results considered in the medical decision making process. Course/Dx - Course Course Of Treatment: Patient's symptoms urgent care due to appearing pale. Patient states she is fatigued cannot state much more than that. Patient does have a skin lesion which was her main concern which is likely skin cancer and she received dermatology referral from urgent care. Patient had blood work performed which showed CK D and anemia at her baseline. Patient was discharged with instructions that she needs to follow up with her solar energy specialist and primary care doctor as soon as possible - Diagnoses Provider Diagnoses: Anemia, Skin cancer, Chronic kidney disease Discharge ED - Sign-Out/Discharge Documenting (check all that apply): Patient Departure - DISCHARGE - Discharge Plan Condition: Stable Disposition: HOME Patient Education Materials: Chronic Kidney Disease (ED), Squamous Cell Carcinoma (DC), Anemia (ED) Referrals: Nabila Barrera MD [Primary Care Provider] - 1 Week Additional Instructions: Use the resources that you have been provided at [facility] care to follow up with a solar energy specialist about your likely skin cancer. Follow up with your primary care physician within a week to get your kidney function and blood count rechecked. Please return to the ED for fever, chills, new neurological deficits , or any other concerning symptoms. - Billing Disposition and Condition Condition: STABLE Disposition: Home - Attestation Statements Document Initiated by Ophelia: Yes Documenting Scribe: LILIANA MORRIS Provider For Whom Ophelia is Documenting (Include Credential): AALIYAH PITTMAN MD Scribe Attestation: LILIANA Emerson, scribed for AALIYAH PITTMAN MD on 12/16/19 at 1213. Scribe Documentation Reviewed: Yes Provider Attestation: The documentation as recorded by the LILIANA agustin accurately reflects the service I personally performed and the decisions made by me, AALIYAH PITTMAN MD Status of Scribe Document: Viewed
[2019-12-15 21:24] LABS: ABS Eosinophils 0.1 10^3/ul (0-0.6); ABS Lymphocytes 1.3 10^3/ul (1.0-4.8); ABS Monocytes 0.3 10^3/ul (0-0.8); ABS Neutrophils 2.6 10^3/ul (1.5-7.7); Eosinophil % 2.3 %; Hematocrit 29 % (35-47); Hemoglobin 9.8 g/dL (12.0-16.0); Lymphocyte % 29.5 %; Mean Corpuscular HGB Conc 33 g/dL (31-36); Mean Corpuscular Hemoglobin 28 pg (27-31); Mean Corpuscular Volume 85 fL (80-97); Mean Platelet Volume 7.3 fL (7.4-10.4); Nucleated Red Blood Cells % 0.1; Platelet Count 207 10^3/uL (150-450); Red Blood Count 3.44 10^6 /uL (3.70-4.87); Red Cell Distribution Width 14 % (10-15); White Blood Count 4.4 10^3/uL (3.5-10.8)
[2019-12-15 21:40] LABS: BUN/Creatinine Ratio 16.9 (8-20); Calcium 8.9 mg/dL (8.6-10.3); EGFR African American 30.7 (>60); EGFR Non-African American 25.4 (>60); Globulin 3.9 g/dL (2-4); Total Bilirubin 0.2 mg/dL (0.2-1.0); Total Protein 7.9 g/dL (6.4-8.9)
[2019-12-15 21:47] LABS: Potassium 5.6 mmol/L (3.5-5.0)
[2019-12-15 22:21] VITALS: BP 145/93
== END 2019-12-15 22:10 | disposition home or self-care (01) ==
LOC: ED 19:22
DX: C44.40 Unspecified malignant neoplasm of skin of scalp and neck (principal); I12.9 Hypertensive chronic kidney disease with stage 1 through stage 4 chronic kidney disease, or unspecified chronic kidney disease; N18.2 Chronic kidney disease, stage 2 (mild); D63.1 Anemia in chronic kidney disease; E03.9 Hypothyroidism, unspecified; K21.9 Gastro-esophageal reflux disease without esophagitis; I69.351 Hemiplegia and hemiparesis following cerebral infarction affecting right dominant side; F41.9 Anxiety disorder, unspecified; F32.9 Major depressive disorder, single episode, unspecified; Z86.718 Personal history of other venous thrombosis and embolism; Z86.711 Personal history of pulmonary embolism; Z96.643 Presence of artificial hip joint, bilateral; Z90.710 Acquired absence of both cervix and uterus; Z90.721 Acquired absence of ovaries, unilateral; Z87.891 Personal history of nicotine dependence; Z79.82 Long term (current) use of aspirin; Z79.899 Other long term (current) drug therapy; Z88.1 Allergy status to other antibiotic agents; Z88.2 Allergy status to sulfonamides; Z88.5 Allergy status to narcotic agent; Z88.8 Allergy status to other drugs, medicaments and biological substances
CPT/HCPCS: 36415; 80053; 85025; 99283

== ENCOUNTER 2019-12-21 06:31 | Inpatient (IN) | payer MEDICARE, MEDICAID, OTHER ==
[2019-12-21] MEDS ORDERED: oxyCODONE/Acetamin 5/325 MG* TAB PO ONE (06:52)
[2019-12-21 07:38] LABS: Hematocrit 30 % (35-47); Mean Corpuscular HGB Conc 33 g/dL (31-36); Mean Corpuscular Hemoglobin 29 pg (27-31); Mean Corpuscular Volume 86 fL (80-97); Red Blood Count 3.49 10^6 /uL (3.70-4.87); Red Cell Distribution Width 15 % (10-15); White Blood Count 3.8 10^3/uL (3.5-10.8)
[2019-12-21 07:48] LABS: Albumin 3.9 g/dL (3.2-5.2); Potassium 4.2 mmol/L (3.5-5.0); Total Bilirubin 0.2 mg/dL (0.2-1.0)
--- OUTSIDE RECORDS SUMMARY | 2019-12-21 07:48 | XMS REPORT | Continuity of Care Document ---
:1960 External Reference #:[id number] Author Name Kerry Moise M.D. (transmitted by agent of provider Britt Rogers) Address [address] [place] [address] Care Team Providers Name Role Phone Nabila Barrera MD - Internal Care Team Information Promotions Associate Medicine Jamaal Wynn MD - Internal Medicine Care Team Information Promotions Associate Mark Thompson MD - Dermatology Care Team Information Promotions Associate [phone] Cisco Mcfarland - Nurse Care Team Information Promotions Associate [phone] Practitioner Alonzo Lebron MD - Rheumatology Care Team Information Promotions Associate Problems Active Problems Provider Date Systemic lupus erythematosus Nabila Barrera M.D. 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 Onset: [...] Note: phenobarb level 26.27 Aug 2017; in [employer] database [address] García most [...] Hydroxychloroquine Sulfate take 1 tablet 180tabs Z79.899 Omaofidavid Mcfarland, 200mg by mouth ELECTROLYTIC DE SCALER Tablets twice a day M32.14 M32.9 Rosuvastatin Calcium 1 tab by mouth 45tabs Niurka Gonzalez NP 01/19/2019 5mg every other day at Tablets bedtime Amlodipine Besylate Take 1 Tablet By 90tabs I10 Nabila Barrera, 09/16/2018 10mg Mouth Every Day M.D. Tablets Floranex Every Day 15tabs Unknown 08/14/2018 Tablets Calcium 500+D3 1 tab by mouth 180tabs M85.89 Omaofidavid Mcfarland, 12/18/2017 [id number] twice a day ELECTROLYTIC DE SCALER Tablets Phenobarbital 1 tab by mouth 60tabs Christopher Dee NP 05/09/2012 64.8mg Tablets twice a day Gabapentin take 1 tablet by 180tabs Christopher Dee NP 600mg Tablets mouth two times daily Bystolic Take 1 Tablet By 90tabs Nabila Barrera, 5mg Tablets Mouth Every Day M.D. Pepcid Take 1 Tablet By 90tabs Nabila Barrera, 20mg Tablets Mouth Every Day M.D. Acetaminophen ER 1 by mouth twice a Unknown 650mg day as needed Tablets ER History Medications Metamucil once a day 60caps K59.03 Nabila Barrera, 08/26/2019 - 0.52gm Capsules M.D. 10/07/2019 Ciprofloxacin HCL Take 1 Tablet Unknown 08/22/2019 - 500mg By Mouth Two 10/07/2019 Tablets Times Daily For 3 Days Immunizations CPT Code Status Date Vaccine Reaction Lot # [id number] Given 08/26/2019 Influenza Virus Vaccine, [id number] Quadrivalent ([id number]), Derived From Cell 37965 Given 07/15/2019 Pneumococcal Conjugate Vaccine [id number] Valent For Intramuscular Use 58319 Given 08/27/2018 Influenza Virus Vaccine, Pt. tolerated well. [id number] Quadrivalent, Split, Preservative Free 80343 Given 07/01/2018 Pneumonia Vaccine [id number] 40486 Given 07/17/2017 Influenza Virus Vaccine, Quadrivalent, Split, Preservative Free 44220 Given 07/15/2016 Influenza Virus Vaccine, [id number] Quadrivalent, Split, Preservative Free 27891 Given 08/03/2015 Influenza Virus Vaccine, No reaction noted [id number] Quadrivalent, Split, Preservative Free 39107 Given 06/05/2015 Tdap - Tetanus/Diptheria/Acellular Pertussis 44782 Given 07/21/2014 Influenza Virus Vaccine, [id number] Quadrivalent, Split, Preservative Free 43576 Refused 08/12/2013 Tdap - Tetanus/Diptheria/Acellular Pertussis 55021 Refused 08/12/2013 Flu Vaccine Split Virus Preservative [...] Test Result H/L Range Note CBC Auto 12/15/2019 [facility] White Blood 4.4 10^3/uL Normal 3.5-10.[address] [place] [address] [phone] Red Blood Count 3.44 10^6/uL Low 3.70-4.87 Hemoglobin 9.8 g/dL Low 12.0-16.0 Hematocrit 29 % Low 35-47 Mean Corpuscular Volume 85 fL Normal 80-97 Mean Corpuscular Hemoglobin 28 pg Normal 27-31 Mean Corpuscular HGB Conc 33 g/dL Normal 31-36 Red Cell Distribution Width 14 % Normal 10-15 Platelet Count 207 10^3/uL Normal 150-450 Mean Platelet Volume 7.3 fL Low 7.4-10.4 Abs Neutrophils 2.6 10^3/uL Normal 1.5-7.7 Abs Lymphocytes 1.3 10^3/uL Normal 1.0-4.8 Abs Monocytes 0.3 10^3/uL Normal 0-0.8 Abs Eosinophils 0.1 10^3/uL Normal 0-0.6 Abs Basophils 0.0 10^3/uL Normal 0-0.2 Abs Nucleated RBC 0.0 10^3/uL Granulocyte % 60.2 % Lymphocyte % 29.5 % Monocyte % 7.2 % Eosinophil % 2.3 % Basophil % 0.8 % Nucleated Red Blood Cells % 0.1 Comp Metabolic 12/15/2019 [facility] Sodium 136 mmol/L Normal 135-[address] [place] [address] [phone] Chloride 106 mmol/L Normal 101-111 Co2 Carbon Dioxide 25 mmol/L Normal 22-32 Glucose 72 mg/dL Normal 70-100 Blood Urea Nitrogen 34 mg/dL High 6-24 Creatinine 2.01 mg/dL High 0.51-0.95 BUN/Creatinine Ratio 16.9 Normal 8-20 Calcium 8.9 mg/dL Normal 8.6-10.3 Total Protein 7.9 g/dL Normal 6.4-8.9 Albumin 4.0 g/dL Normal 3.2-5.2 Globulin 3.9 g/dL Normal 2-4 Albumin/Globulin Ratio 1.0 Normal 1-3 Total Bilirubin 0.20 mg/dL Normal 0.2-1.0 Alkaline Phosphatase 51 U/L Normal 34-104 Alt 13 U/L Normal 7-52 Ast 19 U/L Normal 13-39 Egfr Non- 25.4 >60 Egfr 30.7 >60 1 Potassium 5.6 mmol/L High 3.5-5.0 Anion Gap 5 mmol/L Normal 2-11 CBC Auto 08/19/2019 [facility] White Blood 7.4 10^3/uL Normal 3.5-10.[address] [place] [address] [phone] Red Blood Count 3.55 10^6/uL Low 3.70-4.87 [...] Blood Cells % 0.0 Comp Metabolic 08/19/2019 [facility] Sodium 140 mmol/L Normal 135-145 Panel [address] [place] [address] [phone] Chloride 107 mmol/L Normal 101-111 Co2 Carbon [...] Egfr Non- 36.4 >60 Egfr 44.0 >60 2 Potassium 4.2 mmol/L Normal 3.5-5.0 Anion Gap 6 mmol/L Normal 2-11 Ast 24 U/L Normal 13-39 Urinalysis Profile 08/19/2019 [facility] Urine Color Yellow [address] [place] [address] [phone] Urine Appearance Cloudy Urine Specific [place] 1.011 Normal 1.010-1.030 Urine pH 7.0 Normal [...] Present Abnormal Absent Urine Culture And 08/19/2019 [facility] Urine Culture SEE RESULT [address] [place] [address] [phone] 1 Because ethnic data is not always [...] 5 Kidney failure <15 (or dialysis) 2 Because ethnic data is not always [...] 5 Kidney failure <15 (or dialysis) 3 SEE RESULT BELOW Name: THAIS RAO : [address]: Magen Christensen MD Acct: [id number] Unit: [id number] AGE: 59 Location: Re08/19/19 SEX: F Status: DEP ER SPEC: [id number] GENET: 08/19/[address]: Magen Christensen MD REQ: [id number] RECD: 08/19/19 STATUS: MATTHEW MARTINEZ DR: Nabila Barrera MD _ SOURCE: URINE SPDESC: ORDERED: Urine Culture Procedure Result Reported Site Urine Culture Final 08/21/19- 0938 ML Organism 1 [facility] Count 50-75,000 (Many) CFU/ML Organism 2 STREP GROUP B [facility] Count 10-25,000 (Moderate) CFU/ML Susceptibility testing of penicillins and other B-lactams approved by FDA for treatment of Streptococcus pyogenes (Group A Strep) and Streptococcus agalactiae (Group B Strep) is not necessary for clinical purposes and need not be done routinely, since as with vancomycin, resistant strains have not been recognized. (CLSI F527-R56;p.66) Positive isolates will be saved for one week. Please call the Microbiology Laboratory if further susceptibility testing is needed. 1. [facility] RX --------- ------ Cefazolin >=64 R Cefepime <=1 S Ceftriaxone <=1 S Ciprofloxacin <=0.25 S Gentamicin <=1 S Levofloxacin <=0.12 S Meropenem <=0.25 S Nitrofurantoin <=16 S Tetracycline <=1 S CONTINUED ON NEXT PAGE DEPARTMENT OF PATHOLOGY, [address] [place] [address] Edwin Chanel M.D. Director [facility] # [id number] Specimen: [id number] Collected: 08/19/19 Received: 08/19/19 (Continued) Procedure Result Reported Site Urine Culture Final (continued) 08/21/19937 1. [facility] (continued) [facility] RX --------- ------ Pipercillin/Tazobactam <=4 S Trimethoprim/Sulfamethoxazole <=20 S Amoxicillin/Clavulanic Acid R Aztreonam <=1 S Contact the Microbiology Department for any additional antibiotic reporting. * [facility] - Main Lab . END OF REPORT DEPARTMENT OF PATHOLOGY, [address] [place] [address] Edwin Chanel M.D. Director [facility] # [id number] Procedures Date Code Description Status 06/16/2019 [id number] Diabetic Retinal Eye Exam Completed 01/28/2019 [id number] Bone Mineral Density Test Completed 01/28/2019 [id number] Mammogram Completed 01/13/2018 [id number] Mammogram Completed 12/25/2017 [id number] Diabetic Retinal Eye Exam Completed 09/27/2016 [id number] Mammogram Completed 04/30/2016 [id number] Bone Mineral Density Test Completed 09/07/2015 [id number] Mammogram Completed 08/22/2014 [id number] Colonoscopy Completed 06/22/2014 [id number] Mammogram Completed 06/18/2013 [id number] Mammogram Completed 10/27/2009 [id number] Colonoscopy Completed Medical Devices Description No Information Available Encounters Type Date Location Provider Dx Diagnosis Office Visit 10/08/2019 [facility] Internal Jennifer Zimmer, R21 Rash and other 2:00p Medicine - [facility]cm[facility] N.P. nonspecific skin eruption Office Visit 08/26/2019 [facility] Internal Nabila Barrera, N39.0 Urinary tract 10:30a Medicine - Ccmob M.DDandy infection, site not specified K64.8 Other hemorrhoids K59.03 Drug induced constipation M79.671 Pain in right foot Z23 Encounter for immunization Assessments Date Code Description Provider 10/08/2019 R21 Rash and other nonspecific skin eruption Jennifer Zimmer, N.P. 08/26/2019 N39.0 Urinary tract infection, site not specified Nabila Barrera M.D. 08/26/2019 K64.8 Other hemorrhoids Nabila Barrera M.D. 08/26/2019 K59.03 Drug induced constipation Nabila Barrera M.D. 08/26/2019 M79.671 Pain in right foot Nabila Barrera M.D. 08/26/2019 Z23 Encounter for immunization Nabila Barrera M.D. 07/15/2019 Z00.00 Encounter for general adult medical Nabila Barrera M.D. examination without abnormal findings 07/15/2019 H25.23 Age-related cataract, morgagnian type, Nabila Barrera M.D. bilateral 07/15/2019 M32.9 Systemic lupus erythematosus, unspecified Nabila Barrera M.D. 07/15/2019 N18.3 Chronic kidney disease, stage 3 (moderate) Nabila Barrera M.D. 07/15/2019 G40.89 Other seizures Nabila Barrera M.D. 07/15/2019 D64.9 Anemia, unspecified Nabila Barrera M.D. 07/15/2019 I10 Essential (primary) hypertension Nabila Barrera M.D. 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 infarction aff 07/15/2019 Z23 Encounter for immunization Nabila Barrera M.D. 07/15/2019 H61.22 Impacted cerumen, left ear Nabila Barrera M.D. 07/15/2019 R94.39 Abnormal result of other cardiovascular Nabila Barrera M.D. function study Plan of Treatment Future Appointment(s):12/24/2019 3:00 pm - Jennifer Zimmer N.P. at [facility] Internal Medicine - [facility]10/08/2019 - Jennifer Zimmer N.P.R21 Rash and other nonspecific skin eruptionNew Medication:Triamcinolone Acetonide 0.1 % - apply twice a day until clearComments:For your rash I have sent a prescription to the pharmacy for Triamcinolone cream. Apply this to the affected areas until clear. If you do not get relief with this, mariama castle contact the office. You may need to see a jail guard. Functional Status Functional Condition Comment Date Status Standard walker is used to ambulate Active Quad cane is used with the left hand to ambulate Active Mental Status Description No Information Available Referrals Description No Information Available
[2019-12-21 07:54] LABS: Albumin/Globulin Ratio 1.1 (1-3); BUN/Creatinine Ratio 16.3 (8-20); EGFR African American 32.7 (>60); EGFR Non-African American 27.1 (>60); Globulin 3.7 g/dL (2-4); Total Protein 7.6 g/dL (6.4-8.9)
[2019-12-21 08:32] LABS: ABS Eosinophils 0.1 10^3/ul (0-0.6); ABS Lymphocytes 1.9 10^3/ul (1.0-4.8); ABS Monocytes 0.3 10^3/ul (0-0.8); ABS Neutrophils 1.5 10^3/ul (1.5-7.7); Eosinophil % 3.3 %; Lymphocyte % 49.5 %; Mean Platelet Volume 7.8 fL (7.4-10.4); Nucleated Red Blood Cells % 0.1; Platelet Count 153 10^3/uL (150-450)
[2019-12-21] MEDS ORDERED: diPHENhydraMINE PO* 50 MG PO ONE (09:08)
--- NOTE | 2019-12-21 09:18 | ED ---
Complex/Multi-Sys Presentation - HPI Summary HPI Summary: Pt. is a 59 y.o female who presents to the ER from home via EMS for right sided pain. Pt. states pain is from head all the way down to her right foot. Pt. denies any injuries or falls. Pt. has a hx of CVA and has chronic right sided weakness. Pt. denies recent illness, fever, cp, sob, abd. pain, V/D. Sxs are moderate in severity. No current modifying factors. - History Of Current Complaint Chief Complaint: EDGeneral Time Seen by Provider: 12/21/19 06:47 Hx Obtained From: Patient - Allergies/Home Medications Allergies/Adverse Reactions: Allergies Allergy/AdvReac Type Severity Reaction Status Date / Time fentanyl Allergy rash, Verified 12/21/19 06:45 hives, itchy Sulfa (Sulfonamide Allergy Facial Verified 12/21/19 06:45 Antibiotics) Redness/Flushing baclofen AdvReac Intermediate Altered Verified 12/21/19 06:45 Mental Status nitrofurantoin AdvReac Intermediate Leukopenia/ Verified 12/21/19 06:45 neutropenia Home Medications: Home Medications PHENobarbital TAB(*) 64.8 mg PO BID 09/07/13 [History Confirmed 12/21/19] Hydroxychloroquine TAB* [Plaquenil TAB*] 200 mg PO BID WITH MEALS tab 04/03/17 [Rx Confirmed 12/21/19] Acetaminophen TAB* [Tylenol TAB*] 650 mg PO Q6H PRN #90 tab MDD 4 08/14/18 [Rx Confirmed 12/21/19] Famotidine TAB* [Pepcid 20 MG TAB*] 1 tab PO BEDTIME 12/09/18 [History Confirmed 12/21/19] Aspirin EC TAB* [Ecotrin EC TAB*] 325 mg PO QAM 07/12/19 [History Confirmed ] Calcium Carbonate/Vitamin D3 [Calcium 600-Vit D3 800 Caplet] 1 tab.chew PO BID 08/19/19 [History Confirmed 12/21/19] Gabapentin TAB(NF) [Neurontin 600 mg TAB(NF)] 600 mg PO BID 08/19/19 [History Confirmed 12/21/19] Lisinopril TAB* [Prinivil TAB*] 5 mg PO DAILY 08/19/19 [History Confirmed ] Nebivolol TAB (NF) [Bystolic TAB (NF)] 5 mg PO DAILY 08/19/19 [History Confirmed 12/21/19] Rosuvastatin (NF) [Crestor (NF)] 5 mg PO MOWEFR 08/19/19 [History Confirmed ] amLODIPine TAB* [Norvasc 5 mg TAB*] 10 mg PO DAILY 08/19/19 [History Confirmed 12/21/19] oxyCODONE/Acetamin 5/325 MG* [Percocet 5/325 TAB*] 1 tab PO Q6H PRN 08/19/19 [ History Confirmed 12/21/19] PMH/Surg Hx/FS Hx/Imm Hx Previously Healthy: Yes Endocrine/Hematology History: Reports: Hx Anticoagulant Therapy, Hx Systemic Lupus Erythematosus, Hx Thyroid Disease - THYROIDECTOMY, Hx Anemia - HISTORY Denies: Hx Bone Marrow Disease, Hx Diabetes, Hx Sickle Cell Disease Cardiovascular History: Reports: Hx Angina, Hx Deep Vein Thrombosis, Hx Hypertension, Hx Syncope, Other Cardiovascular Problems/Disorders - STROKE Denies: Hx Congestive Heart Failure, Hx Myocardial Infarction, Hx Pacemaker/ ICD, Hx Rheumatic Fever, Hx Valvular Heart Disease Comment Only: Hx Hypercholesterolemia - unkown Respiratory History: Reports: Hx Pulmonary Embolism Denies: Hx Asthma, Hx Sleep Apnea, Other Respiratory Problems/Disorders GI History: Reports: Hx Gastroesophageal Reflux Disease, Hx Hiatal Hernia, Hx Irritable Bowel Denies: Hx Jaundice History: Reports: Hx Chronic Renal Failure - stage 2, Hx Kidney Infection, Other Problems/Disorders - UTI, vag abscess. SEES DR. Lozano ABOUT KIDNEYS Denies: Hx Renal Disease Musculoskeletal History: Reports: Hx Arthritis, Hx Back Problems, Hx Orthopedic Injury, Other Musculoskeletal History - osteopenia, r hip pain x 1 year, l hip hemiarthroplasty Denies: Hx Tendonitis Sensory History: Reports: Hx Cataracts, Hx Contacts or Glasses - GLASSES SOMETIMES, Hx Deafness - [place] in right ear, Hx Hearing Problem - right hear clogged, Other Sensory Impairments - right hemiparesis secondary to CVA Hx Denies: Hx Glaucoma, Hx Hearing Aid Opthamlomology History: Reports: Hx Cataracts, Hx Contacts or Glasses - GLASSES SOMETIMES, Other Sensory Impairments - right hemiparesis secondary to CVA Hx Denies: Hx Glaucoma Neurological History: Reports: Hx CVA - with right hemiplegia , Hx Headaches, Hx Migraine, Hx Seizures, Hx Transient Ischemic Attacks (TIA), Other Neuro Impairments/Disorders - LUPUS Denies: Hx Nerve Disease Psychiatric History: Reports: Hx Anxiety, Hx Depression Denies: Hx Panic Disorder - Cancer History Hx Chemotherapy: No Hx Radiation Therapy: No - Surgical History Surgery Procedure, Year, and Place: BILAT HIP REPLACEMENT;. HYSTERECTOMY;. OOPHERECTOMY;. VAGINAL ABSCESS I&D. BREAST SURGERY Hx Anesthesia Reactions: No - Immunization History Date of Tetanus Vaccine: unk Date of Influenza Vaccine: unk Infectious Disease History: No Infectious Disease History: Reports: Hx of Known/Suspected MRSA, Hx Shingles, History Other Infectious Disease - herpes Denies: Hx Clostridium Difficile, Hx Hepatitis, Hx Tuberculosis, Hx Known/ Suspected VRE, Hx Known/Suspected VRSA, Traveled Outside the [place] in Last 30 Days - Family History Known Family History: Positive: Cardiac Disease, Hypertension, Diabetes, Non- Contributory - Social History Occupation: Retired Lives: Alone Alcohol Use: None Hx Substance Use: No Substance Use Type: Reports: None Hx Tobacco Use: No Smoking Status (MU): Former Smoker Amount Used/How Often: only smoked for weeks Have You Smoked in the Last Year: No Review of Systems Constitutional: Negative Cardiovascular: Negative Respiratory: Negative Gastrointestinal: Negative Genitourinary: Negative Positive: Other - right sided pain. Positive: Weakness - chronic weakness right ride. All Other Systems Reviewed And Are Negative: Yes Physical Exam Triage Information Reviewed: Yes Vital Signs On Initial Exam: Initial Vitals Temp Resp BP Pulse Ox 97.4 F 20 148/103 95 12/21/19 06:35 12/21/19 06:35 12/21/19 06:35 12/21/19 06:35 Vital Signs Reviewed: Yes Appearance: Positive: Pain Distress - Pt. lying in bed crying. Skin: Positive: Warm, Dry Head/Face: Positive: Normal Head/Face Inspection Eyes: Positive: Normal, EOMI ENT: Positive: Other - marked edema to upper lip. No edema to tonuge or oral pharynx. Neck: Positive: Supple Respiratory/Lung Sounds: Positive: Clear to Auscultation, Breath Sounds Present. Negative: Stridor, Wheezes Cardiovascular: Positive: Normal, RRR Abdomen Description: Positive: Nontender, Soft Musculoskeletal: Positive: Other - Chronic contracted right upper arm. Chronic weakness to right UE and LE. Diffuse pain to right side on light palpation. Neurological: Positive: Normal, Alert, Oriented to Person Place, Time, CN Intact II-III Psychiatric: Positive: Affect/Mood Appropriate Procedures - Sedation Patient Received Moderate/Deep Sedation with Procedure: No Diagnostics - Vital Signs Vital Signs Temp Pulse Resp BP Pulse Ox 12/21/19 08:00 71 100 12/21/19 07:00 75 99 12/21/19 06:56 20 12/21/19 06:38 80 100 12/21/19 06:37 148/103 12/21/19 06:35 97.4 F 20 148/103 95 - Laboratory Lab Results: Lab Results 12/21/19 12/21/19 Range/Units 07:20 07:27 WBC 3.8 (3.5-10.8) 10^3/uL RBC 3.49 L (3.70-4.87) 10^6 /uL Hgb 10.0 L (12.0-16.0) g/dL Hct 30 L (35-47) % MCV 86 (80-97) fL MCH 29 (27-31) pg MCHC 33 (31-36) g/dL RDW 15 (10-15) % Plt Count 153 (150-450) 10^3/uL MPV 7.8 (7.4-10.4) fL Neut % (Auto) 38.8 % Lymph % (Auto) 49.5 % [place] % (Auto) 7.5 % Eos % (Auto) 3.3 % Baso % (Auto) 0.9 % Absolute Neuts (auto) 1.5 (1.5-7.7) 10^3/ul Absolute Lymphs (auto) 1.9 (1.0-4.8) 10^3/ul Absolute Monos (auto) 0.3 (0-0.8) 10^3/ul Absolute Eos (auto) 0.1 (0-0.6) 10^3/ul Absolute Basos (auto) 0.0 (0-0.2) 10^3/ul Absolute Nucleated RBC 0.0 10^3/ul Nucleated RBC % 0.1 Sodium 138 (135-145) mmol/L Potassium 4.2 (3.5-5.0) mmol/L Chloride 104 (101-111) mmol/L Carbon Dioxide 24 (22-32) mmol/L Anion Gap 10 (2-11) mmol/L BUN 31 H (6-24) mg/dL Creatinine 1.90 H (0.51-0.95) mg/dL Est GFR ( Amer) 32.7 (>60) Est GFR (Non-Af Amer) 27.1 (>60) BUN/Creatinine Ratio 16.3 (8-20) Glucose 74 (70-100) mg/dL Calcium 9.0 (8.6-10.3) mg/dL Total Bilirubin 0.20 (0.2-1.0) mg/dL AST 21 (13-39) U/L ALT 13 (7-52) U/L Alkaline Phosphatase 47 (34-104) U/L Total Protein 7.6 (6.4-8.9) g/dL Albumin 3.9 (3.2-5.2) g/dL Globulin 3.7 (2-4) g/dL Albumin/Globulin Ratio 1.1 (1-3) Result Diagrams: 12/21/19 07:27 12/21/19 07:20 Lab Statement: Any lab studies that have been ordered have been reviewed, and results considered in the medical decision making process. Complex Multi-Symp Course/Dx Course Of Treatment: Pt. with c/o diffuse right sided pain. afebrile with stable VS. Pt. given a perocet for pain. Labs show chronic anemia and CKD. Pt. notes edema to top lip that started this morning. No airway involvement. Pt. has numerous antix rxn but denies recent new medication. Pt. does take lisinopril so suspcet anigioedema. I spoke with Ellen Zimmer MICROARRAY SPECIALIST covering for Dr. Barrera. She would like pt to dc lisinopril and increase bystolic to 10mg. Pt. resting more comfortably on recheck but still c/o pain. Pt. notes she ambulates with cane at home. Attempted to ambulate but pt. states her right leg is too painful to move in the "joints." Xrays of hip and knee negative for acute findings. Pt. unable to ambulate and lives byself. Unclear of pain etiology. Hospitalist were consulted for admission for further eval and PT/OT. Case discussed with Dr. Reyes. They will admit for further evaluation. - Diagnoses Provider Diagnoses: Angioedema, Intractable pain Discharge ED - Sign-Out/Discharge Documenting (check all that apply): Patient Departure - Discharge Plan Condition: Stable Disposition: ADMITTED TO [facility] Meds/Orders/Equipment: Home Care: Skilled Needs Location: None Selected Referrals: [facility] [place] [Outside] Nabila Barrera MD [Primary Care Provider] - - Billing Disposition and Condition Condition: STABLE Disposition: Admitted to [facility]
[2019-12-21 10:19] LABS: Urine Appearance Cloudy; Urine Bacteria 1+ (Absent); Urine Bilirubin Negative (Negative); Urine Blood Negative (Negative); Urine Color Yellow; Urine Glucose Negative (Negative); Urine Ketones Negative (Negative); Urine Nitrite Negative (Negative); Urine Protein 1+(30 mg/dL) (Negative); Urine Red Blood Cell 2+(6-10/hpf) (Absent); Urine Urobilinogen Negative (Negative); Urine White Blood Cell 3+(>20/hpf) (Absent)
[2019-12-21] MEDS: oxyCODONE/Acetamin 5/325 MG* TAB PO PRN (15:47)
[2019-12-21] MEDS: cefTRIAXone(*) 1 GM in NS 0.9% 50 ML* 50 ML IVPB SCH ×2 (15:47→17:51)
--- NOTE | 2019-12-21 16:37 | HP ---
CC: Dr. Barrera * HISTORY AND PHYSICAL: DATE OF ADMISSION: 12/21/19 PROVIDER: Jina Sutton NP PRIMARY CARE PROVIDER: Dr. Barrera. ATTENDING PHYSICIAN WHILE IN THE HOSPITAL: Dr. Caroline Reyes * (dictated by Jina Sutton NP). CHIEF COMPLAINT: 1. Right-sided pain. 2. Increased right-sided weakness. HISTORY OF PRESENT ILLNESS: Ms. Rao is a 59-year-old female with past medical history significant for hemorrhagic stroke in 1986, history of lupus, seizure disorder, chronic kidney disease stage 3, anemia, neuropathy, who presented to the emergency room with complaints of increased pain and weakness on the right side. The patient reports that she woke up yesterday morning and noted that she was having more weakness in her right leg than normal. She reports that she was dragging her right foot more than normal. She also reports that last evening, she developed increased pain on the right side of her body. She describes it as a sharp and tingling type pain. Due to these continued symptoms, she presented to the emergency room for further evaluation. The patient also reports that she has had swelling to her upper lip that started last evening. She denies any new meds, soaps, or environmental exposures. The patient denies any recent fever, chills, chest pain, shortness of breath. She denies any nausea, vomiting, diarrhea. She denies any headache , dizziness, changes in vision, changes in speech. She denies any urinary frequency, urgency, or pain with urination. She denies any open rashes, lesions , or open sores. She denies any cough or hemoptysis. While in the emergency room, the patient had routine lab work drawn which was close to her baseline. She did have a urine that was positive for bacteria, leukocyte esterase, wbc's, rbc's. Due to the patient's weakness and inability to ambulate on her own, Hospital Medicine was asked to see and evaluate her for admission. The patient does report that she normally ambulates with a quad cane, but reports that she has felt unstable attempting to ambulate since yesterday morning. PAST MEDICAL HISTORY: Significant for: 1. Lupus. 2. Hypertension. 3. History of CVA with chronic right-sided weakness. 4. Seizures. 5. GERD. 6. Chronic kidney disease. 7. Dyslipidemia. PAST SURGICAL HISTORY: 1. Hysterectomy. 2. Thyroid resection. 3. Bilateral hip replacements. HOME MEDICATIONS: Include: 1. Amlodipine 10 mg p.o. daily. 2. Aspirin 325 mg p.o. daily. 3. Crestor 5 mg Friday, Friday, Friday. 4. Phenobarbital 64.8 twice a day. 5. Bystolic 5 mg p.o. daily. 6. Lisinopril 5 mg p.o. daily. 7. Plaquenil 200 mg p.o. b.i.d. with meals. 8. Gabapentin 600 mg p.o. b.i.d. 9. Famotidine 1 tablet at bedtime. 10. Calcium with vitamin D 1 tab twice daily. 11. Acetaminophen 650 mg every 6 hours as needed for pain. 12. Percocet 1 tablet every 6 hours as needed for severe pain. ALLERGIES: She has an allergy to FENTANYL, SULFA, BACLOFEN, and NITROFURANTOIN. FAMILY HISTORY: Father at approximately age of 60 from a stroke. Mother is alive and well. SOCIAL HISTORY: The patient denies any alcohol, illicit drug use, or smoking. Her healthcare proxy is her son, Yayo Rao. She is a full code. REVIEW OF SYSTEMS: A 14-point review of systems was completed, all pertinent positives were mentioned in the HPI, otherwise were negative. PHYSICAL EXAMINATION GENERAL: At this time, Ms. Rao is a 59-year-old female. She is awake and alert. She is in no acute distress. VITAL SIGNS: Blood pressure 139/86, heart rate 61, respirations 16, O2 saturation is 100%, temperature is 97.5. HEENT: Head is atraumatic, normocephalic. Eyes: EOMs are intact. Sclerae anicteric and not pale. Oral mucosa is moist. NECK: Supple. LUNGS: Clear to auscultation bilaterally. No wheezes, rales, or rhonchi. CARDIAC: S1 and S2. Regular rate and rhythm. No murmurs, rubs, or gallops. ABDOMEN: Soft and nontender. Bowel sounds are present x4. EXTREMITIES: The patient has limited range of motion to her right upper extremity. She has minimal range of motion to her right upper extremity. She has minimal movement to her right lower leg. Hand seater assembler on the left is strong. Push and pull on the left lower extremity is within normal limits. NEUROLOGIC: She is awake, alert, oriented x3. Speech is clear. Thought process is intact. She does have chronic right-sided weakness. Smile is equal. Tongue is midline. Speech is clear. [id number] on the left is intact , unable to perform on the right. There is no pronator drift on the left, unable to perform on the right. SKIN: Intact. DIAGNOSTIC STUDIES/LAB DATA: WBCs are 3.8, RBCs 3.49, hemoglobin 10, hematocrit is 30, platelet count is 153. Sodium 138, potassium 4.2, chloride 104, carbon dioxide is 24, anion gap is 10, BUN was 31, creatinine 1.19, glucose is 74. ASTs are 21, ALTs are 13, alkaline phosphatase is 47. Urine; pH is 7, specific gravity 1.010, urine protein is 1+. ketones; blood, nitrites , bilirubin, urobilinogen were all negative; leukocyte esterase was 3+, wbc's were 3+, rbc's were 2+, bacteria was 1+, glucose was negative, ascorbic acid was positive. She had a hip and pelvis x-ray, no etiology for right-sided pain was evident, no fracture. She had a knee x-ray, negative for joint effusion for extraarticular malalignment. Suggestion of chondrocalcinosis or potential small loose bodies at the patellofemoral joint, minimal patellofemoral joint osteophytosis; subchondral sclerosis of the lateral greater than medial femoral condyles, is likely secondary to degeneration of the hyaline articular cartilage ; mild generalized soft tissue edema and skeletal muscle atrophy. IMPRESSION AND PLAN: Ms. Rao is a 59-year-old female with past medical history significant for cerebrovascular accident with chronic right-sided weakness, hypertension, lupus, chronic kidney disease stage 3, anemia, who presented to the emergency room with complaints of increased right-sided weakness, tingling and sharp jabbing pain on the right side of her body. Hospital Medicine was asked to see and evaluate her due to her weakness, inability to ambulate and right-sided pain. She will be admitted under observation for: 1. Weakness. I suspect that her weakness could possibly be related to underlying urinary tract infection. The patient does have a urine that is suspicious for a urinary tract infection. I suspect that this underlying urinary tract infection could be exacerbating her chronic right-sided weakness, but though I do think it is prudent to rule out acute CVA. I will get a CT of the brain to rule out any acute pathology as a cause for her worsening weakness on the right side. For her underlying urinary tract infection, I will treat her with ceftriaxone until her culture returns. Of note, the patient also reports that she was exposed to the flu approximately 3 days ago. The patient currently has no symptoms of the flu. She has no rhinorrhea, cough, or congestion at this time. We will continue to monitor her for signs and symptoms of the flu. If this does develop, I would recommend a flu A and B swab. 2. Urinary tract infection. The patient does appear to have a urinary tract infection. I suspect this could be contributing to her weakness. I will place her on ceftriaxone. Urine culture is currently pending. Consistent with this, the patient also does have a mildly above her baseline elevation in her creatinine, which could be associated with her underlying urinary tract infection. 3. Elevated chronic kidney disease stage 3. She does have a mild elevation in her creatinine above her baseline. I suspect this could be related to her underlying urinary tract infection. I will treat her with ceftriaxone. We will continue to monitor her BMP. 4. Upper lip swelling. The patient does have new upper lip swelling that started last evening. The patient does take lisinopril chronically at home for her hypertension. I am going to stop her lisinopril. I suspect that her angioedema could be related to her lisinopril. We will continue her on amlodipine for her blood pressure and Bystolic. She can have Benadryl every 6 hours as needed and I will continue her on famotidine as well. The patient currently does not have any difficulty with breathing and denies any tongue swelling. 5. Hypertension. The patient should continue on amlodipine 10 mg p.o. daily and Bystolic. I am going to stop her lisinopril as the patient is likely having angioedema related to her lisinopril. 6. History of seizures. The patient should continue on her phenobarbital as previously prescribed. 7. Lupus. The patient should continue on Plaquenil 200 mg twice daily with meals. 8. Neuropathy. The patient does have history of neuropathy. She should continue on gabapentin 600 mg twice daily as previously prescribed. 9. History of cerebrovascular accident. The patient should continue on aspirin 325 mg p.o. daily., her statin, Crestor as previously prescribed. 10. FEN: She can have a regular diet. 11. Code status: She is a full code. 12. DVT prophylaxis: I will place her on SCDs as the patient does currently have a CT of the head that is currently pending. If this is negative, I will start her on Lovenox subcu. TIME SPENT: Time spent on this admission was 60 minutes, greater than half that time was spent at the bedside reviewing the events leading thus far to her hospitalization, performing physical exam, and reviewing my plan of care. I have discussed this with my attending Dr. Caroline Reyes; she is in agreement with my plan. JINA SUTTON, HIGH HEEL BUILDER [id number]/CPS #: [id number]
[2019-12-21] MEDS ORDERED: diPHENhydraMINE PO* 25 MG PO PRN (17:00)
[2019-12-21] MEDS: Hydroxychloroquine TAB* 200 MG PO SCH (17:48)
[2019-12-21] MEDS: PHENobarbital TAB(*) 30 MG PO SCH (20:54)
[2019-12-21] MEDS: Gabapentin CAP(*) 300 MG PO SCH (20:54)
[2019-12-21] MEDS: Famotidine TAB* 20 MG PO SCH (20:54)
[2019-12-22 07:50] LABS: CO2 Carbon Dioxide 18 mmol/L (22-32); Calcium 8.3 mg/dL (8.6-10.3); Chloride 108 mmol/L (101-111); Sodium 135 mmol/L (135-145)
[2019-12-22 07:51] LABS: Anion Gap 9 mmol/L (2-11); Hematocrit 31 % (35-47); Hemoglobin 10.4 g/dL (12.0-16.0); Mean Corpuscular HGB Conc 33 g/dL (31-36); Mean Corpuscular Hemoglobin 29 pg (27-31); Mean Corpuscular Volume 87 fL (80-97); Red Blood Count 3.62 10^6 /uL (3.70-4.87); Red Cell Distribution Width 14 % (10-15); White Blood Count 3.3 10^3/uL (3.5-10.8)
[2019-12-22 07:56] LABS: Blood Urea Nitrogen 29 mg/dL (6-24); EGFR Non-African American 30.6 (>60); Glucose 59 mg/dL (70-100)
[2019-12-22 08:40] LABS: ABS Eosinophils 0.1 10^3/ul (0-0.6); ABS Lymphocytes 1.6 10^3/ul (1.0-4.8); ABS Monocytes 0.2 10^3/ul (0-0.8); ABS Neutrophils 1.3 10^3/ul (1.5-7.7); Eosinophil % 2.1 %; Lymphocyte % 49.9 %; Nucleated Red Blood Cells % 0.3
[2019-12-22] MEDS: amLODIPine TAB* 5 MG PO SCH (09:18)
[2019-12-22] MEDS: Gabapentin CAP(*) 300 MG PO SCH ×2 (09:18→20:40)
[2019-12-22] MEDS: Losartan TAB* 25 MG PO SCH (09:19)
[2019-12-22] MEDS: PHENobarbital TAB(*) 30 MG PO SCH ×2 (09:19→20:41)
[2019-12-22] MEDS: oxyCODONE/Acetamin 5/325 MG* TAB PO PRN ×3 (09:20→20:40)
[2019-12-22] MEDS: Hydroxychloroquine TAB* 200 MG PO SCH ×2 (09:20→16:12)
[2019-12-22] MEDS: Atorvastatin* 10 MG TAB PO SCH (09:20)
[2019-12-22] MEDS: Aspirin EC TAB* 325 MG PO SCH (09:20)
[2019-12-22] MEDS: CMCS: Nebivolol TAB (NF) 2.5 MG TAB PO SCH (09:21)
[2019-12-22 09:49] LABS: Influenza A Molecular Negative (Negative); Influenza B Molecular Negative (Negative)
[2019-12-22] MEDS ORDERED: tiZANidine TAB* 2 MG PO PRN (10:58)
[2019-12-22 11:24] LABS: Mean Platelet Volume 7.4 fL (7.4-10.4); Platelet Count 208 10^3/uL (150-450)
--- NOTE | 2019-12-22 13:45 | PN ---
Subjective Date of Service: 12/22/19 Interval History: Patient complains of persistent pain in her right upper and lower extremity. Patient states this does often hurt, but is usually much more mild than this. Patient states it feels very "stiff" and rates pain at 7/10. Patient has urinary frequency overnight. Patient denies F/C, N/V, abdominal pain, dysuria, CP, SOB, dizziness, or other pain. Patient has not been moving around as much. Family History: Unchanged from Admission Social History: Unchanged from Admission Past Medical History: Unchanged from Admission Objective Active Medications: Amlodipine Besylate (Norvasc Tab*) 10 mg PO DAILY [facility] Last Admin: 12/22/19 09:18 Dose: 10 mg Aspirin (Ecotrin Ec Tab*) 325 mg PO QAM [facility] Last Admin: 12/22/19 09:20 Dose: 325 mg Atorvastatin Calcium (Lipitor*) 10 mg PO MoWeFr@0900 [facility]; Protocol Last Admin: 12/22/19 09:20 Dose: 10 mg Diphenhydramine HCl (Benadryl Po*) 25 mg PO Q6H PRN PRN Reason: lip swelling Famotidine (Pepcid Tab*) 20 mg PO BEDTIME [facility] Last Admin: 12/21/19 20:54 Dose: 20 mg Gabapentin (Neurontin Cap(*)) 600 mg PO BID [facility] Last Admin: 12/22/19 09:18 Dose: 600 mg Hydroxychloroquine Sulfate (Plaquenil Tab*) 200 mg PO BID WITH MEALS [facility] Last Admin: 12/22/19 09:20 Dose: 200 mg Ceftriaxone Sodium 1 gm/ (Sodium Chloride) 50 mls @ 100 mls/hr IVPB Q24H [facility] Last Admin: 12/21/19 17:51 Dose: 100 mls/hr Losartan Potassium (Cozaar Tab*) 50 mg PO DAILY [facility] Last Admin: 12/22/19 09:19 Dose: 50 mg Nebivolol (Bystolic Tab (Nf)) 5 mg PO DAILY [facility] Last Admin: 12/22/19 09:21 Dose: 5 mg Oxycodone/Acetaminophen (Percocet 5/325 Tab*) 1 tab PO Q6H PRN PRN Reason: PAIN - SEVERE Phenobarbital (Phenobarbital Tab(*)) 60 mg PO BID [facility] Last Admin: 12/22/19 09:19 Dose: 60 mg Tizanidine HCl (Zanaflex Tab*) 2 mg PO Q8H PRN PRN Reason: SPASMS Vital Signs - 8 hr 12/22/19 12/22/19 12/22/19 08:23 09:18 09:19 Temperature 97.3 F Pulse Rate 72 Respiratory 16 18 18 Rate Blood Pressure 121/72 (mmHg) O2 Sat by Pulse 100 Oximetry 12/22/19 12/22/19 12/22/19 09:20 11:26 11:27 Temperature Pulse Rate Respiratory 18 16 16 Rate Blood Pressure (mmHg) O2 Sat by Pulse Oximetry Oxygen Devices in Use Now: None Appearance: Patient is a 59yo female who appears older than stated age and is sitting in the bed in [facility]. Eyes: No Scleral Icterus, PERRLA Ears/Nose/Mouth/Throat: NL Teeth, Lips, Gums, Clear Oropharnyx, Mucous Membranes Moist Neck: NL Appearance and Movements; NL JVP, Trachea Midline Respiratory: Symmetrical Chest Expansion and Respiratory Effort, Clear to Auscultation Cardiovascular: NL Sounds; No Murmurs; No JVD, RRR, No Edema Abdominal: NL Sounds; No Tenderness; No Distention, No Hepatosplenomegaly Lymphatic: No Cervical Adenopathy Extremities: No Clubbing, Cyanosis, - - 1+ RLE Edema with calf firmness. Skin: No Rash or Ulcers, No Nodules or Sclerosis Neurological: Alert and Oriented x 3, NL Sensation, - - Right sided weakness and spasticity. Result Diagrams: 12/22/19 11:10 12/22/19 11:10 Additional Lab and Data: Lab Results 12/21/19 12/21/19 Range/Units 07:20 07:27 WBC 3.8 (3.5-10.8) 10^3/uL RBC 3.49 L (3.70-4.87) 10^6 /uL Hgb 10.0 L (12.0-16.0) g/dL Hct 30 L (35-47) % MCV 86 (80-97) fL MCH 29 (27-31) pg MCHC 33 (31-36) g/dL RDW 15 (10-15) % Plt Count 153 (150-450) 10^3/uL MPV 7.8 (7.4-10.4) fL Neut % (Auto) 38.8 % Lymph % (Auto) 49.5 % [place] % (Auto) 7.5 % Eos % (Auto) 3.3 % Baso % (Auto) 0.9 % Absolute Neuts (auto) 1.5 (1.5-7.7) 10^3/ul Absolute Lymphs (auto) 1.9 (1.0-4.8) 10^3/ul Absolute Monos (auto) 0.3 (0-0.8) 10^3/ul Absolute Eos (auto) 0.1 (0-0.6) 10^3/ul Absolute Basos (auto) 0.0 (0-0.2) 10^3/ul Absolute Nucleated RBC 0.0 10^3/ul Nucleated RBC % 0.1 Sodium 138 (135-145) mmol/L Potassium 4.2 (3.5-5.0) mmol/L Chloride 104 (101-111) mmol/L Carbon Dioxide 24 (22-32) mmol/L Anion Gap 10 (2-11) mmol/L BUN 31 H (6-24) mg/dL Creatinine 1.90 H (0.51-0.95) mg/dL Est GFR ( Amer) 32.7 (>60) Est GFR (Non-Af Amer) 27.1 (>60) BUN/Creatinine Ratio 16.3 (8-20) Glucose 74 (70-100) mg/dL Calcium 9.0 (8.6-10.3) mg/dL Total Bilirubin 0.20 (0.2-1.0) mg/dL AST 21 (13-39) U/L ALT 13 (7-52) U/L Alkaline Phosphatase 47 (34-104) U/L Total Protein 7.6 (6.4-8.9) g/dL Albumin 3.9 (3.2-5.2) g/dL Globulin 3.7 (2-4) g/dL Albumin/Globulin Ratio 1.1 (1-3) Microbiology and Other Data: Microbiology 12/21/19 09:55 Urine Culture - Final Urine Strep Group B Normal Kitty Assess/Plan/Problems-Billing Assessment: Patient is a 59yo female with a PMH for Lupus, HTN, CKD, CVA with right sided weakness, here with increasing weakness and ambulatory dysfunction found to have findings consistent with urinary tract infection. - Patient Problems (1) UTI (urinary tract infection) Current Visit: No Status: Acute Comment: - Due to GBS - Continue Ceftriaxone day (12/21-12/27) Planned - Likely cause of recrudescence and worsening pain. (2) Unable to ambulate Current Visit: No Status: Chronic Priority: High Onset Date: 11/07/14 Code(s): R26.2 - DIFFICULTY IN WALKING, NOT ELSEWHERE CLASSIFIED SNOMED Code(s ): 466023215 Comment: - PT ordered, likely worsening of chronic deficits - Calf stiff and edematous, possibly from spacitity, R/O DVT - Add on Tizanidine (3) CKD (chronic kidney disease) stage 3, GFR 30-59 ml/min Current Visit: No Status: Acute Code(s): N18.3 - CHRONIC KIDNEY DISEASE, STAGE 3 (MODERATE) SNOMED Code(s): 521713136 Comment: - Creatinine slightly above baseline now. - Likely due to Lupus and worsened by poor oral intake. (4) History of CVA (cerebrovascular accident) Current Visit: No Status: Acute Code(s): Z86.73 - PRSNL HX OF TIA (TIA), AND CEREB INFRC W/O RESID DEFICITS SNOMED Code(s): 372936679 Comment: - Left MCA territory, approx 30 yrs ago. Uses cane to ambulate. Contractures on right side. - CT head negative - Low concern for recurrent CVA (5) Intractable pain Current Visit: No Status: Acute Code(s): R52 - PAIN, UNSPECIFIED SNOMED Code(s): 54957254 Comment: - Increase Percocet, Add on Tizanadine - Continue PT through hospitalization - Scheduled Tylenol (6) Seizure disorder Current Visit: No Status: Acute Code(s): G40.909 - EPILEPSY, UNSP, NOT INTRACTABLE, WITHOUT STATUS EPILEPTICUS SNOMED Code(s): 422621182 Comment: - Continue phenobarbital - Seizure Precautions (7) Lupus Current Visit: No Status: Chronic Code(s): M32.9 - SYSTEMIC LUPUS ERYTHEMATOSUS, UNSPECIFIED SNOMED Code(s): 06673684 Comment: - Continue hydroxychloroquine. - Not highly active disease. (8) DVT prophylaxis Current Visit: No Status: Acute Onset Date: 04/19/15 Code(s): XMX7635 - SNOMED Code(s): 322557091 Comment: - Sean (9) Full code status Current Visit: No Status: Acute Onset Date: 04/19/15 Code(s): Z78.9 - OTHER SPECIFIED HEALTH STATUS SNOMED Code(s): 423730621 Status and Disposition: Inpatient for UTI, Intractable Pain, and inability to ambulate.
[2019-12-22] MEDS: Enoxaparin(*) 30 MG/0.3 ML SYR SUBCUT SCH (14:20)
[2019-12-22] MEDS: cefTRIAXone(*) 1 GM in NS 0.9% 50 ML* 50 ML IVPB SCH (14:20)
--- NOTE | 2019-12-22 15:05 | CONSULT ---
Subjective Date of Service: 12/22/19 Interval History: Ms. Rao is a 59 yo female with PMH significant for Lupus, HTN, hx CVA with residual right sided weakness, seizure disorder, GERD, CKD, HLD, anemia, and neuropathy; who presented to the emergency room with complaints of right sided pain and increased right sided weakness. She was admitted for weakness, UTI, RICH , and possible angioedema. Reports that an open area to the top of her buttocks has been present for 1 week. This is being treated with barrier cream while in the hospital. Verbal consent given for wound consult and photograph. Family History: Unchanged from Admission Social History: Unchanged from Admission Past Medical History: Unchanged from Admission Review of Systems - Measurements Intake and Output: Intake and Output Last 24 Hours 12/20/19 12/21/19 12/22/19 12/23/19 06:59 06:59 06:59 06:59 Intake Total 50 1200 Output Total 0 Balance 50 1200 Weight 150 lb 147 lb Intake: IV Fluids 50 Oral 0 1200 Output: Urine 0 Other: Estimated Void Medium Date of Last Bowel [id number] Movement # Bowel Movements 1 0 Estimated Stool Amount Medium # Voids 2 - Review of Systems Constitutional Symptoms: Negative: Fever, Other - Chills Dermatology: Positive: Other - Open area to buttocks Objective Active Medications: Amlodipine Besylate (Norvasc Tab*) 10 mg PO DAILY [facility] Aspirin (Ecotrin Ec Tab*) 325 mg PO QAM [facility] Atorvastatin Calcium (Lipitor*) 10 mg PO MoWeFr@0900 [facility]; Protocol Diphenhydramine HCl (Benadryl Po*) 25 mg PO Q6H PRN Reason: lip swelling Enoxaparin Sodium (Lovenox(*)) 30 mg SUBCUT Q24H [facility] Famotidine (Pepcid Tab*) 20 mg PO BEDTIME [facility] Gabapentin (Neurontin Cap(*)) 600 mg PO BID [facility] Hydroxychloroquine Sulfate (Plaquenil Tab*) 200 mg PO BID WITH MEALS [facility] Ceftriaxone Sodium 1 gm/ (Sodium Chloride) 50 mls @ 100 mls/hr IVPB Q24H [facility] Losartan Potassium (Cozaar Tab*) 50 mg PO DAILY [facility] Nebivolol (Bystolic Tab (Nf)) 5 mg PO DAILY [facility] Oxycodone/Acetaminophen (Percocet 5/325 Tab*) 1 tab PO Q6H PRN Reason: PAIN - SEVERE Phenobarbital (Phenobarbital Tab(*)) 60 mg PO BID [facility] Tizanidine HCl (Zanaflex Tab*) 2 mg PO Q8H PRN Reason: SPASMS Vital Signs 12/22/19 12/22/19 12/22/19 08:23 09:18 09:19 Temperature 97.3 F Pulse Rate 72 Respiratory 16 18 18 Rate Blood Pressure 121/72 (mmHg) O2 Sat by Pulse 100 Oximetry Oxygen Devices in Use Now: None Appearance: NAD, sitting up in bed Ears/Nose/Mouth/Throat: Mucous Membranes Moist Respiratory: Symmetrical Chest Expansion and Respiratory Effort Skin: - - See skin note below Neurological: Alert and Oriented x 3 Nutrition: Taking PO's Result Diagrams: 12/24/19 07:03 12/24/19 07:03 Additional Lab and Data: Above labs were pulled into the note, when the note was edited prior to signing. See below for labs from day of consultation. Laboratory Tests 12/21/19 12/22/19 12/22/19 07:20 07:33 07:33 WBC 3.3 L Hgb 10.4 L Hct 31 L Sodium 135 Chloride 108 Carbon Dioxide 18 L BUN 29 H Creatinine 1.71 H Glucose 59 L Total Protein 7.6 Albumin 3.9 12/22/19 12/22/19 11:10 11:10 Plt Count 208 Potassium 4.2 Skin Deviation Note - Skin Deviation Findings Midline sacrum - Open area, measures 2.5 cm x 0.4 cm x < 0.1 cm. The wound base is red granulation tissue. There is scant drainage. The surrounding skin is intact. Wound Problem/Plan Assessment: Ms. Rao is a 59 yo female with PMH significant for Lupus, HTN, hx CVA with residual right sided weakness, seizure disorder, GERD, CKD, HLD, anemia, and neuropathy; who presented to the emergency room with complaints of right sided pain and increased right sided weakness. She was admitted for weakness, UTI, RICH , and possible angioedema. Reports that an open area to the top of her buttocks has been present for 1 week. 1. Open area to the midline sacrum. Suspect this is secondary to pressure ( stage 2) and trauma (from pulling on the skin). Recommend frequent turning and repositioning. Use a friction reduction device to move in bed. Use caution when bathing and providing incontinence care to not pull on the skin. Apply barrier cream (orange top) to the area as needed. If the wound worsens, apply an air pump to the bed. Consider checking a pre-albumin level. 2. Hx CVA with residual right sided weakness. On aspirin, this may affect wound healing. 3. Nutrition. Recommend meeting nutrition requirements to assist with wound healing (Protein 1.3-15 gm/kg per day and Calories 30-35 kcal/kg per day). Regular diet. 4. Code Status. Full Code. 5. Disposition. Observation, disposition per primary medicine team. TIME SPENT: Time for this wound consultation was 20 minutes and 10 minutes was spent with the patient discussing past medical history; assessing, measuring, and photographing the wound; performing incontinence care, applying barrier cream and repositioning the patient. Is Patient a Wound Clinic Patient: No Attending: Merry Man
[2019-12-22] MEDS: Famotidine TAB* 20 MG PO SCH (20:39)
[2019-12-22] MEDS ORDERED: Senna TAB 8.6 mg* TAB PO PRN (22:14)
[2019-12-23] MEDS: CMCS: Nebivolol TAB (NF) 2.5 MG TAB PO SCH (09:03)
[2019-12-23] MEDS: Losartan TAB* 25 MG PO SCH (09:04)
[2019-12-23] MEDS: Gabapentin CAP(*) 300 MG PO SCH ×2 (09:04→22:11)
[2019-12-23] MEDS: PHENobarbital TAB(*) 30 MG PO SCH ×2 (09:04→22:11)
[2019-12-23] MEDS: Hydroxychloroquine TAB* 200 MG PO SCH ×2 (09:05→18:35)
[2019-12-23] MEDS: Aspirin EC TAB* 325 MG PO SCH (09:05)
[2019-12-23] MEDS: amLODIPine TAB* 5 MG PO SCH (09:05)
[2019-12-23 12:57] LABS: ABS Eosinophils 0.1 10^3/ul (0-0.6); ABS Lymphocytes 1.1 10^3/ul (1.0-4.8); ABS Monocytes 0.2 10^3/ul (0-0.8); ABS Neutrophils 1.6 10^3/ul (1.5-7.7); Eosinophil % 2.9 %; Hematocrit 29 % (35-47); Hemoglobin 9.4 g/dL (12.0-16.0); Lymphocyte % 35.1 %; Mean Corpuscular HGB Conc 33 g/dL (31-36); Mean Corpuscular Hemoglobin 28 pg (27-31); Mean Corpuscular Volume 86 fL (80-97); Mean Platelet Volume 6.9 fL (7.4-10.4); Platelet Count 200 10^3/uL (150-450); Red Blood Count 3.32 10^6 /uL (3.70-4.87); Red Cell Distribution Width 14 % (10-15); White Blood Count 3.1 10^3/uL (3.5-10.8)
[2019-12-23 13:14] LABS: BUN/Creatinine Ratio 16.8 (8-20); Calcium 8.7 mg/dL (8.6-10.3); EGFR African American 43.3 (>60); EGFR Non-African American 35.8 (>60); Potassium 4.5 mmol/L (3.5-5.0)
--- NOTE | 2019-12-23 13:21 | PN ---
Subjective Date of Service: 12/23/19 Interval History: Patient is feeling better today. Patient has decreased frequency, but then states she has suprapubic pain today. Patient has decreased pain in right arm and leg. Patient denies F/C, N/V, CP, SOB, Dizziness, palpitations. Patient has not been out of bed much, but expresses willingness and interest in getting up more. Family History: Unchanged from Admission Social History: Unchanged from Admission Past Medical History: Unchanged from Admission Objective Active Medications: Amlodipine Besylate (Norvasc Tab*) 10 mg PO DAILY [facility] Last Admin: 12/23/19 09:05 Dose: 10 mg Aspirin (Ecotrin Ec Tab*) 325 mg PO QAM [facility] Last Admin: 12/23/19 09:05 Dose: 325 mg Atorvastatin Calcium (Lipitor*) 10 mg PO MoWeFr@0900 [facility]; Protocol Last Admin: 12/22/19 09:20 Dose: 10 mg Diphenhydramine HCl (Benadryl Po*) 25 mg PO Q6H PRN PRN Reason: lip swelling Enoxaparin Sodium (Lovenox(*)) 30 mg SUBCUT Q24H [facility] Last Admin: 12/22/19 14:20 Dose: 30 mg Famotidine (Pepcid Tab*) 20 mg PO BEDTIME [facility] Last Admin: 12/22/19 20:39 Dose: 20 mg Gabapentin (Neurontin Cap(*)) 600 mg PO BID [facility] Last Admin: 12/23/19 09:04 Dose: 600 mg Hydroxychloroquine Sulfate (Plaquenil Tab*) 200 mg PO BID WITH MEALS [facility] Last Admin: 12/23/19 09:05 Dose: 200 mg Ceftriaxone Sodium 1 gm/ (Sodium Chloride) 50 mls @ 100 mls/hr IVPB Q24H [facility] Last Admin: 12/22/19 14:20 Dose: 100 mls/hr Losartan Potassium (Cozaar Tab*) 50 mg PO DAILY [facility] Last Admin: 12/23/19 09:04 Dose: 50 mg Nebivolol (Bystolic Tab (Nf)) 5 mg PO DAILY [facility] Last Admin: 12/23/19 09:03 Dose: 5 mg Oxycodone/Acetaminophen (Percocet 5/325 Tab*) 1 tab PO Q6H PRN PRN Reason: PAIN - SEVERE Last Admin: 02/26/20 20:40 Dose: 1 tab Phenobarbital (Phenobarbital Tab(*)) 60 mg PO BID [facility] Last Admin: 12/23/19 09:04 Dose: 60 mg Senna (Senokot 8.6 Mg Tab*) 2 tab PO BEDTIME PRN PRN Reason: CONSTIPATION Tizanidine HCl (Zanaflex Tab*) 2 mg PO Q8H PRN PRN Reason: SPASMS Vital Signs - 8 hr 12/23/19 12/23/19 12/23/19 07:55 09:04 11:05 Temperature 96.7 F Pulse Rate 62 Respiratory 17 16 19 Rate Blood Pressure 127/70 (mmHg) O2 Sat by Pulse 100 Oximetry 12/23/19 11:30 Temperature 97 F Pulse Rate 71 Respiratory 16 Rate Blood Pressure 109/65 (mmHg) O2 Sat by Pulse 100 Oximetry Oxygen Devices in Use Now: None Appearance: Patient is a 59yo female who appears stated age and is sitting in the bed in [facility]. Eyes: No Scleral Icterus, PERRLA Ears/Nose/Mouth/Throat: NL Teeth, Lips, Gums, Clear Oropharnyx, Mucous Membranes Moist Neck: NL Appearance and Movements; NL JVP, Trachea Midline Respiratory: Symmetrical Chest Expansion and Respiratory Effort, Clear to Auscultation Cardiovascular: NL Sounds; No Murmurs; No JVD, RRR, No Edema Abdominal: NL Sounds; No Tenderness; No Distention, No Hepatosplenomegaly, - - Suprapubc tenderness. Lymphatic: No Cervical Adenopathy Extremities: No Edema, No Clubbing, Cyanosis Skin: No Rash or Ulcers, No Nodules or Sclerosis Neurological: Alert and Oriented x 3, - - Right Sided weakness and spasticity not improved. Result Diagrams: 12/23/19 12:45 12/23/19 12:45 Additional Lab and Data: Laboratory Tests 12/21/19 12/22/19 12/22/19 07:20 07:33 07:33 WBC 3.3 L Hgb 10.4 L Hct 31 L Sodium 135 Chloride 108 Carbon Dioxide 18 L BUN 29 H Creatinine 1.71 H Glucose 59 L Total Protein 7.6 Albumin 3.9 12/22/19 12/22/19 11:10 11:10 Plt Count 208 Potassium 4.2 Microbiology and Other Data: Microbiology 12/21/19 09:55 Urine Culture - Final Urine Strep Group B Normal Kitty Assess/Plan/Problems-Billing Assessment: Patient is a 59yo female with a PMH for Lupus, HTN, CKD, CVA with right sided weakness, here with increasing weakness and ambulatory dysfunction found to have findings consistent with urinary tract infection. - Patient Problems (1) UTI (urinary tract infection) Current Visit: No Status: Acute Comment: - Due to GBS - Continue Ceftriaxone day (12/21-12/27) Planned - Likely cause of recrudescence and worsening pain. - With urinary frequency and suprapubic pain. (2) Unable to ambulate Current Visit: No Status: Chronic Priority: High Onset Date: 11/07/14 Code(s): R26.2 - DIFFICULTY IN WALKING, NOT ELSEWHERE CLASSIFIED SNOMED Code(s ): 475652905 Comment: - PT ordered, likely worsening of chronic deficits - Calf stiff and edematous, possibly from spacitity, No DVT - Add on Tizanidine - Gradual improvement. (3) CKD (chronic kidney disease) stage 3, GFR 30-59 ml/min Current Visit: No Status: Acute Code(s): N18.3 - CHRONIC KIDNEY DISEASE, STAGE 3 (MODERATE) SNOMED Code(s): 090914144 Comment: - Creatinine improved to baseline. - Likely due to Lupus and worsened by poor oral intake. (4) History of CVA (cerebrovascular accident) Current Visit: No Status: Acute Code(s): Z86.73 - PRSNL HX OF TIA (TIA), AND CEREB INFRC W/O RESID DEFICITS SNOMED Code(s): 778723996 Comment: - Left MCA territory, approx 30 yrs ago. Uses cane to ambulate. Contractures on right side. - CT head negative - Low concern for recurrent CVA (5) Intractable pain Current Visit: No Status: Acute Code(s): R52 - PAIN, UNSPECIFIED SNOMED Code(s): 22243462 Comment: - Increase Percocet, Add on Tizanadine - Continue PT through hospitalization - Scheduled Tylenol (6) Seizure disorder Current Visit: No Status: Acute Code(s): G40.909 - EPILEPSY, UNSP, NOT INTRACTABLE, WITHOUT STATUS EPILEPTICUS SNOMED Code(s): 050493247 Comment: - Continue phenobarbital, consider alternative medication as patient is at risk for falls and osteoporosis - Seizure Precautions (7) Lupus Current Visit: No Status: Chronic Code(s): M32.9 - SYSTEMIC LUPUS ERYTHEMATOSUS, UNSPECIFIED SNOMED Code(s): 59551320 Comment: - Continue hydroxychloroquine. - Not highly active disease. (8) DVT prophylaxis Current Visit: No Status: Acute Onset Date: 04/19/15 Code(s): YCJ3939 - SNOMED Code(s): 267348436 Comment: - Lovenox (9) Full code status Current Visit: No Status: Acute Onset Date: 04/19/15 Code(s): Z78.9 - OTHER SPECIFIED HEALTH STATUS SNOMED Code(s): 642909412 Status and Disposition: Inpatient for UTI, Intractable Pain, and inability to ambulate.
[2019-12-23] MEDS: cefTRIAXone(*) 1 GM in NS 0.9% 50 ML* 50 ML IVPB SCH (14:09)
[2019-12-23] MEDS: Enoxaparin(*) 30 MG/0.3 ML SYR SUBCUT SCH (14:09)
[2019-12-23] MEDS: oxyCODONE/Acetamin 5/325 MG* TAB PO PRN ×2 (14:09→22:11)
[2019-12-23] MEDS: Acetaminophen TAB* 325 MG PO SCH (22:10)
[2019-12-23] MEDS: Famotidine TAB* 20 MG PO SCH (22:11)
[2019-12-24 07:22] LABS: Hematocrit 29 % (35-47); Hemoglobin 9.6 g/dL (12.0-16.0); Mean Corpuscular HGB Conc 33 g/dL (31-36); Mean Corpuscular Hemoglobin 29 pg (27-31); Mean Corpuscular Volume 86 fL (80-97); Mean Platelet Volume 7.4 fL (7.4-10.4); Platelet Count 176 10^3/uL (150-450); Red Blood Count 3.36 10^6 /uL (3.70-4.87); Red Cell Distribution Width 15 % (10-15); White Blood Count 2.5 10^3/uL (3.5-10.8)
[2019-12-24 07:39] LABS: BUN/Creatinine Ratio 16.2 (8-20); Calcium 8.1 mg/dL (8.6-10.3); EGFR African American 45.8 (>60); EGFR Non-African American 37.9 (>60); Magnesium 2.1 mg/dL (1.9-2.7); Potassium 4.4 mmol/L (3.5-5.0)
[2019-12-24 08:24] LABS: ABS Eosinophils 0.1 10^3/ul (0-0.6); ABS Lymphocytes 1.3 10^3/ul (1.0-4.8); ABS Monocytes 0.2 10^3/ul (0-0.8); ABS Neutrophils 0.9 10^3/ul (1.5-7.7); Eosinophil % 3.7 %
[2019-12-24] MEDS: CMCS: Nebivolol TAB (NF) 2.5 MG TAB PO SCH (08:37)
[2019-12-24] MEDS: Hydroxychloroquine TAB* 200 MG PO SCH ×2 (08:38→17:41)
[2019-12-24] MEDS: Gabapentin CAP(*) 300 MG PO SCH ×2 (08:38→21:12)
[2019-12-24] MEDS: Losartan TAB* 25 MG PO SCH (08:39)
[2019-12-24] MEDS: amLODIPine TAB* 5 MG PO SCH (08:39)
[2019-12-24] MEDS: Atorvastatin* 10 MG TAB PO SCH (08:39)
[2019-12-24] MEDS: PHENobarbital TAB(*) 30 MG PO SCH ×2 (08:39→21:11)
[2019-12-24] MEDS: Aspirin EC TAB* 325 MG PO SCH (08:39)
[2019-12-24] MEDS: Acetaminophen TAB* 325 MG PO SCH ×2 (08:40→21:12)
--- NOTE | 2019-12-24 11:29 | PN ---
Subjective Date of Service: 12/24/19 Interval History: Resting in chair on assessment. Reports right sided pain slightly improving with addition of Tizanidine. Denies suprapubic pain and urinary symptoms. Denies cp, sob, palpitations, nausea, vomiting, fever, chills. Family History: Unchanged from Admission Social History: Unchanged from Admission Past Medical History: Unchanged from Admission Objective Active Medications: Acetaminophen (Tylenol Tab*) 975 mg PO BID [facility] Last Admin: 12/24/19 08:40 Dose: 975 mg Amlodipine Besylate (Norvasc Tab*) 10 mg PO DAILY [facility] Last Admin: 12/24/19 08:39 Dose: 10 mg Aspirin (Ecotrin Ec Tab*) 325 mg PO QAM [facility] Last Admin: 12/24/19 08:39 Dose: 325 mg Atorvastatin Calcium (Lipitor*) 10 mg PO MoWeFr@0900 [facility]; Protocol Last Admin: 12/24/19 08:39 Dose: 10 mg Diphenhydramine HCl (Benadryl Po*) 25 mg PO Q6H PRN PRN Reason: lip swelling Enoxaparin Sodium (Lovenox(*)) 30 mg SUBCUT Q24H [facility] Last Admin: 12/23/19 14:09 Dose: 30 mg Famotidine (Pepcid Tab*) 20 mg PO BEDTIME [facility] Last Admin: 12/23/19 22:11 Dose: 20 mg Gabapentin (Neurontin Cap(*)) 600 mg PO BID [facility] Last Admin: 12/24/19 08:38 Dose: 600 mg Hydroxychloroquine Sulfate (Plaquenil Tab*) 200 mg PO BID WITH MEALS [facility] Last Admin: 12/24/19 08:38 Dose: 200 mg Ceftriaxone Sodium 1 gm/ (Sodium Chloride) 50 mls @ 100 mls/hr IVPB Q24H [facility] Last Admin: 12/23/19 14:09 Dose: 100 mls/hr Losartan Potassium (Cozaar Tab*) 50 mg PO DAILY [facility] Last Admin: 12/24/19 08:39 Dose: 50 mg Nebivolol (Bystolic Tab (Nf)) 5 mg PO DAILY [facility] Last Admin: 12/24/19 08:37 Dose: 5 mg Oxycodone/Acetaminophen (Percocet 5/325 Tab*) 1 tab PO Q6H PRN PRN Reason: PAIN - SEVERE Last Admin: 12/23/19 22:11 Dose: 1 tab Phenobarbital (Phenobarbital Tab(*)) 60 mg PO BID [facility] Last Admin: 12/24/19 08:39 Dose: 60 mg Senna (Senokot 8.6 Mg Tab*) 2 tab PO BEDTIME PRN PRN Reason: CONSTIPATION Tizanidine HCl (Zanaflex Tab*) 2 mg PO Q8H PRN PRN Reason: SPASMS Vital Signs - 8 hr 12/24/19 12/24/19 12/24/19 03:59 07:46 08:38 Temperature 97.9 F Pulse Rate 71 65 Respiratory 18 16 14 Rate Blood Pressure 135/66 112/68 (mmHg) O2 Sat by Pulse 100 100 Oximetry 12/24/19 08:39 Temperature Pulse Rate Respiratory 14 Rate Blood Pressure (mmHg) O2 Sat by Pulse Oximetry Oxygen Devices in Use Now: None Appearance: Comfortable, NAD Eyes: No Scleral Icterus Ears/Nose/Mouth/Throat: Clear Oropharnyx, Mucous Membranes Moist Neck: NL Appearance and Movements; NL JVP Respiratory: Symmetrical Chest Expansion and Respiratory Effort, Clear to Auscultation Cardiovascular: NL Sounds; No Murmurs; No JVD, RRR, No Edema Abdominal: NL Sounds; No Tenderness; No Distention Lymphatic: No Cervical Adenopathy Extremities: No Edema Skin: No Rash or Ulcers Neurological: Alert and Oriented x 3, - - Right sided weakness Nutrition: Taking PO's Result Diagrams: 12/24/19 07:03 12/24/19 07:03 Additional Lab and Data: Laboratory Results - last 24 hr 12/24/19 12/24/19 07:03 07:03 WBC 2.5 L RBC 3.36 L Hgb 9.6 L Hct 29 L MCV 86 MCH 29 MCHC 33 RDW 15 Plt Count 176 MPV 7.4 Neut % (Auto) 35.4 Lymph % (Auto) 51.0 [place] % (Auto) 8.8 Eos % (Auto) 3.7 Baso % (Auto) 1.1 Absolute Neuts (auto) 0.9 L* Absolute Lymphs (auto) 1.3 Absolute Monos (auto) 0.2 Absolute Eos (auto) 0.1 Absolute Basos (auto) 0.0 Absolute Nucleated RBC 0.0 Neutrophils % 42.0 Lymphocytes % 35.0 Reactive Lymphs % 16.0 H Monocytes % 3.0 Eosinophils % 4.0 Nucleated RBC % 0.0 Normal RBC Morphology Normal Sodium 136 Potassium 4.4 Chloride 108 Carbon Dioxide 23 Anion Gap 5 BUN 23 Creatinine 1.42 H Est GFR ( Amer) 45.8 Est GFR (Non-Af Amer) 37.9 BUN/Creatinine Ratio 16.2 Glucose 75 Calcium 8.1 L Magnesium 2.1 Microbiology and Other Data: Microbiology 12/21/19 09:55 Urine Culture - Final Urine Strep Group B Normal Kitty Assess/Plan/Problems-Billing Assessment: Patient is a 59yo female with a PMH for Lupus, HTN, CKD, CVA with right sided weakness, here with increasing weakness and ambulatory dysfunction found to have findings consistent with urinary tract infection. - Patient Problems (1) Neutrophil dysfunction Comment: - Call received that Absolute Neutrophil 0.9. - Recheck tomorrow - Check B12, Thyroid, ESR, CRP, ENMANUEL - Give Folic Acid and B12 (2) UTI (urinary tract infection) Comment: - Due to GBS - Continue Ceftriaxone day (12/21-12/27) Planned - Likely cause of recrudescence and worsening pain. - With urinary frequency and suprapubic pain. (3) Unable to ambulate Comment: - PT recommends rehab - Calf stiff and edematous, possibly from spacitity, No DVT - Add on Tizanidine - Gradual improvement. (4) CKD (chronic kidney disease) stage 3, GFR 30-59 ml/min Comment: - Creatinine at baseline today. - Creatinine peaked at 1.90 - Likely due to Lupus and worsened by poor oral intake. (5) History of CVA (cerebrovascular accident) Comment: - Left MCA territory, approx 30 yrs ago. Uses cane to ambulate. Contractures on right side. - CT head negative - Low concern for recurrent CVA (6) Intractable pain Comment: - Tizanadine added 12/22 - Cont home Percocet - Continue PT through hospitalization - Scheduled Tylenol (7) Lupus Comment: - Continue hydroxychloroquine. - Not highly active disease. - Checking ESR, CRP, ENMANUEL (8) Seizure disorder Comment: - Continue phenobarbital, consider alternative medication as patient is at risk for falls and osteoporosis - Seizure Precautions (9) DVT prophylaxis Comment: - Lovenox (10) Full code status Status and Disposition: Inpatient for UTI, Intractable Pain, and inability to ambulate. Attending: Drew Hutchison
[2019-12-24] MEDS: Enoxaparin(*) 30 MG/0.3 ML SYR SUBCUT SCH (14:54)
[2019-12-24] MEDS: cefTRIAXone(*) 1 GM in NS 0.9% 50 ML* 50 ML IVPB SCH (14:54)
[2019-12-24] MEDS ORDERED: Cyanocobalamin TAB* 500 MCG PO ONE (17:39)
[2019-12-24] MEDS ORDERED: Folic Acid TAB* 1 MG PO ONE (17:39)
[2019-12-24 18:20] LABS: C Reactive Protein 2.95 mg/L (<8.01)
[2019-12-24] MEDS: Famotidine TAB* 20 MG PO SCH (21:11)
[2019-12-25] MEDS: oxyCODONE/Acetamin 5/325 MG* TAB PO PRN (01:23)
[2019-12-25 08:50] LABS: Urine Appearance Clear; Urine Bilirubin Negative (Negative); Urine Blood Negative (Negative); Urine Color Straw; Urine Glucose Negative (Negative); Urine Ketones Negative (Negative); Urine Nitrite Negative (Negative); Urine Protein 1+(30 mg/dL) (Negative); Urine Specific Gravity 1.011 (1.010-1.030); Urine Urobilinogen Negative (Negative)
[2019-12-25 08:54] LABS: Urine Bacteria 1+ (Absent); Urine Red Blood Cell Trace(0-2/hpf) (Absent); Urine Squamous Epithelial Cell Present (Absent); Urine White Blood Cell 3+(>20/hpf) (Absent)
[2019-12-25] MEDS: Losartan TAB* 25 MG PO SCH (09:52)
[2019-12-25] MEDS: amLODIPine TAB* 5 MG PO SCH (09:52)
[2019-12-25] MEDS: Gabapentin CAP(*) 300 MG PO SCH ×2 (09:53→21:23)
[2019-12-25] MEDS: Aspirin EC TAB* 325 MG PO SCH (09:53)
[2019-12-25] MEDS: PHENobarbital TAB(*) 30 MG PO SCH ×2 (09:54→21:24)
[2019-12-25] MEDS: Acetaminophen TAB* 325 MG PO SCH ×2 (09:54→21:24)
[2019-12-25] MEDS: Hydroxychloroquine TAB* 200 MG PO SCH ×2 (09:54→16:54)
[2019-12-25] MEDS: CMCS: Nebivolol TAB (NF) 2.5 MG TAB PO SCH (09:55)
[2019-12-25 12:04] LABS: ABS Eosinophils 0.1 10^3/ul (0-0.6); ABS Lymphocytes 0.8 10^3/ul (1.0-4.8); ABS Monocytes 0.2 10^3/ul (0-0.8); ABS Neutrophils 1.4 10^3/ul (1.5-7.7); Eosinophil % 2.7 %; Hematocrit 29 % (35-47); Hemoglobin 9.6 g/dL (12.0-16.0); Mean Corpuscular HGB Conc 33 g/dL (31-36); Mean Corpuscular Hemoglobin 28 pg (27-31); Mean Corpuscular Volume 86 fL (80-97); Mean Platelet Volume 7.3 fL (7.4-10.4); Nucleated Red Blood Cells % 0.1; Platelet Count 189 10^3/uL (150-450); Red Blood Count 3.38 10^6 /uL (3.70-4.87); Red Cell Distribution Width 15 % (10-15); White Blood Count 2.5 10^3/uL (3.5-10.8)
[2019-12-25 12:41] LABS: BUN/Creatinine Ratio 14.7 (8-20); Calcium 8.5 mg/dL (8.6-10.3); EGFR African American 48.2 (>60); EGFR Non-African American 39.8 (>60)
[2019-12-25 12:56] LABS: TSH (Thyroid Stimulating Horm) 1.25 mcIU/mL (0.34-5.60)
[2019-12-25] MEDS: Enoxaparin(*) 30 MG/0.3 ML SYR SUBCUT SCH (14:21)
[2019-12-25] MEDS: cefTRIAXone(*) 1 GM in NS 0.9% 50 ML* 50 ML IVPB SCH (14:21)
--- NOTE | 2019-12-25 17:59 | PN ---
Subjective Date of Service: 12/25/19 Interval History: Resting in bed on assessment. Reports mild improvement in RUE and RLL pain and weakness. Family History: Unchanged from Admission Social History: Unchanged from Admission Past Medical History: Unchanged from Admission Objective Active Medications: Acetaminophen (Tylenol Tab*) 975 mg PO BID [facility] Last Admin: 12/25/19 09:54 Dose: 975 mg Amlodipine Besylate (Norvasc Tab*) 10 mg PO DAILY [facility] Last Admin: 12/25/19 09:52 Dose: 10 mg Aspirin (Ecotrin Ec Tab*) 325 mg PO QAM [facility] Last Admin: 12/25/19 09:53 Dose: 325 mg Atorvastatin Calcium (Lipitor*) 10 mg PO MoWeFr@0900 [facility]; Protocol Last Admin: 12/24/19 08:39 Dose: 10 mg Diphenhydramine HCl (Benadryl Po*) 25 mg PO Q6H PRN PRN Reason: lip swelling Enoxaparin Sodium (Lovenox(*)) 30 mg SUBCUT Q24H [facility] Last Admin: 12/25/19 14:21 Dose: 30 mg Famotidine (Pepcid Tab*) 20 mg PO BEDTIME [facility] Last Admin: 12/24/19 21:11 Dose: 20 mg Gabapentin (Neurontin Cap(*)) 600 mg PO BID [facility] Last Admin: 12/25/19 09:53 Dose: 600 mg Hydroxychloroquine Sulfate (Plaquenil Tab*) 200 mg PO BID WITH MEALS [facility] Last Admin: 12/25/19 16:54 Dose: 200 mg Ceftriaxone Sodium 1 gm/ (Sodium Chloride) 50 mls @ 100 mls/hr IVPB Q24H [facility] Last Admin: 12/25/19 14:21 Dose: 100 mls/hr Losartan Potassium (Cozaar Tab*) 50 mg PO DAILY [facility] Last Admin: 12/25/19 09:52 Dose: 50 mg Nebivolol (Bystolic Tab (Nf)) 5 mg PO DAILY [facility] Last Admin: 12/25/19 09:55 Dose: Not Given Oxycodone/Acetaminophen (Percocet 5/325 Tab*) 1 tab PO Q6H PRN PRN Reason: PAIN - SEVERE Last Admin: 12/25/19 01:23 Dose: 1 tab Phenobarbital (Phenobarbital Tab(*)) 60 mg PO BID [facility] Last Admin: 12/25/19 09:54 Dose: 60 mg Senna (Senokot 8.6 Mg Tab*) 2 tab PO BEDTIME PRN PRN Reason: CONSTIPATION Tizanidine HCl (Zanaflex Tab*) 2 mg PO Q8H PRN PRN Reason: SPASMS Vital Signs - 8 hr 12/25/19 12/25/19 12/25/19 11:15 12:23 12:24 Temperature 98.4 F Pulse Rate 77 Respiratory 16 18 16 Rate Blood Pressure 105/64 (mmHg) O2 Sat by Pulse 100 Oximetry 12/25/19 16:19 Temperature 98.1 F Pulse Rate 74 Respiratory 16 Rate Blood Pressure 112/71 (mmHg) O2 Sat by Pulse 100 Oximetry Oxygen Devices in Use Now: None Appearance: Comfortable, NAD Ears/Nose/Mouth/Throat: NL Teeth, Lips, Gums, Mucous Membranes Moist Neck: NL Appearance and Movements; NL JVP Respiratory: Symmetrical Chest Expansion and Respiratory Effort, Clear to Auscultation Cardiovascular: NL Sounds; No Murmurs; No JVD, RRR, No Edema Abdominal: NL Sounds; No Tenderness; No Distention Extremities: No Edema Skin: No Rash or Ulcers Neurological: Alert and Oriented x 3, - - RUE and RLE weakness Nutrition: Taking PO's Result Diagrams: 12/25/19 11:25 12/25/19 11:25 Additional Lab and Data: Laboratory Results - last 24 hr 12/24/19 12/24/19 12/25/19 07:03 22:19 08:40 WBC RBC Hgb Hct MCV MCH MCHC RDW Plt Count MPV Neut % (Auto) Lymph % (Auto) [place] % (Auto) Eos % (Auto) Baso % (Auto) Absolute Neuts (auto) Absolute Lymphs (auto) Absolute Monos (auto) Absolute Eos (auto) Absolute Basos (auto) Absolute Nucleated RBC Nucleated RBC % ESR 38 H Sodium 136 Potassium 4.4 Chloride 108 Carbon Dioxide 23 Anion Gap 5 BUN 23 Creatinine 1.42 H Est GFR ( Amer) 45.8 Est GFR (Non-Af Amer) 37.9 BUN/Creatinine Ratio 16.2 Glucose 75 Calcium 8.1 L Magnesium 2.1 C-Reactive Protein 2.95 Vitamin B12 TSH Urine Color Straw Urine Appearance Clear Urine pH 6.0 Ur Specific [place] 1.011 Urine Protein 1+(30 mg/dl) A Urine Ketones Negative Urine Blood Negative Urine Nitrate Negative Urine Bilirubin Negative Urine Urobilinogen Negative Ur Leukocyte Esterase 2+ A Urine WBC (Auto) 3+(>20/hpf) A Urine RBC (Auto) Trace(0-2/hpf) Ur Squamous Epith Cells Present A Urine Bacteria 1+ A Urine Glucose Negative Urine Ascorbic Acid * A 12/25/19 12/25/19 12/25/19 11:25 11:25 11:25 WBC 2.5 L RBC 3.38 L Hgb 9.6 L Hct 29 L MCV 86 MCH 28 MCHC 33 RDW 15 Plt Count 189 MPV 7.3 L Neut % (Auto) 55.7 Lymph % (Auto) 31.0 [place] % (Auto) 9.7 Eos % (Auto) 2.7 Baso % (Auto) 0.9 Absolute Neuts (auto) 1.4 L Absolute Lymphs (auto) 0.8 L Absolute Monos (auto) 0.2 Absolute Eos (auto) 0.1 Absolute Basos (auto) 0.0 Absolute Nucleated RBC 0.0 Nucleated RBC % 0.1 ESR Sodium 138 Potassium 4.0 Chloride 107 Carbon Dioxide 25 Anion Gap 6 BUN 20 Creatinine 1.36 H Est GFR ( Amer) 48.2 Est GFR (Non-Af Amer) 39.8 BUN/Creatinine Ratio 14.7 Glucose 59 L Calcium 8.5 L Magnesium C-Reactive Protein Vitamin B12 Cancelled 579 TSH 1.25 Urine Color Urine Appearance Urine pH Ur Specific [place] Urine Protein Urine Ketones Urine Blood Urine Nitrate Urine Bilirubin Urine Urobilinogen Ur Leukocyte Esterase Urine WBC (Auto) Urine RBC (Auto) Ur Squamous Epith Cells Urine Bacteria Urine Glucose Urine Ascorbic Acid Microbiology and Other Data: Microbiology 12/21/19 09:55 Urine Culture - Final Urine Strep Group B Normal Kitty Assess/Plan/Problems-Billing Assessment: Patient is a 59yo female with a PMH for Lupus, HTN, CKD, CVA with right sided weakness, here with increasing weakness and ambulatory dysfunction found to have findings consistent with urinary tract infection. - Patient Problems (1) Neutrophil dysfunction Comment: - Abs Neut today 1.4. - Call received that Absolute Neutrophil 0.9. Patient required redraw today to assess for downward trend and neutropenia - Cont Folic Acid and B12 (2) UTI (urinary tract infection) Comment: - Due to GBS - Continue Ceftriaxone day (12/21-12/27) Planned - Likely cause of recrudescence and worsening pain. - No longer experiencing urinary frequency and suprapubic pain. (3) Unable to ambulate Comment: - PT recommends rehab - Calf stiff and edematous, possibly from spacitity, No DVT - Add on Tizanidine - Gradual improvement. (4) CKD (chronic kidney disease) stage 3, GFR 30-59 ml/min Comment: - Creatinine at baseline today. - Creatinine peaked at 1.90 - Likely due to Lupus and worsened by poor oral intake. (5) History of CVA (cerebrovascular accident) Comment: - Left MCA territory, approx 30 yrs ago. Uses cane to ambulate. Contractures on right side. - CT head negative - Low concern for recurrent CVA (6) Intractable pain Comment: - Tizanadine added 12/22 - Cont home Percocet - Continue PT through hospitalization - Scheduled Tylenol (7) Lupus Comment: - Continue hydroxychloroquine. - Not highly active disease. - ESR mildly elevated. CRP wnl. ENMANUEL pending (8) Seizure disorder Comment: - Continue phenobarbital - Seizure Precautions (9) DVT prophylaxis Comment: - Lovenox (10) Full code status Status and Disposition: Inpatient for UTI, Intractable Pain, and inability to ambulate. Attending: Drew Hutchison
[2019-12-25] MEDS: Famotidine TAB* 20 MG PO SCH (21:24)
[2019-12-26] MEDS: Acetaminophen TAB* 325 MG PO SCH ×2 (08:48→20:54)
[2019-12-26] MEDS: PHENobarbital TAB(*) 30 MG PO SCH ×2 (08:49→20:53)
[2019-12-26] MEDS: Folic Acid TAB* 1 MG PO SCH (08:49)
[2019-12-26] MEDS: amLODIPine TAB* 5 MG PO SCH (08:49)
[2019-12-26] MEDS: Losartan TAB* 25 MG PO SCH (08:49)
[2019-12-26] MEDS: Hydroxychloroquine TAB* 200 MG PO SCH ×2 (08:49→17:40)
[2019-12-26] MEDS: Gabapentin CAP(*) 300 MG PO SCH ×2 (08:50→20:52)
[2019-12-26] MEDS: Cyanocobalamin TAB* 500 MCG PO SCH (08:50)
[2019-12-26] MEDS: Aspirin EC TAB* 325 MG PO SCH (08:50)
[2019-12-26] MEDS: CMCS: Nebivolol TAB (NF) 2.5 MG TAB PO SCH (09:11)
[2019-12-26] MEDS ORDERED: Loperamide CAP* 2 MG PO PRN (14:09)
[2019-12-26] MEDS: cefTRIAXone(*) 1 GM in NS 0.9% 50 ML* 50 ML IVPB SCH (14:32)
[2019-12-26] MEDS: Enoxaparin(*) 30 MG/0.3 ML SYR SUBCUT SCH (14:32)
--- NOTE | 2019-12-26 16:29 | PN ---
Subjective Date of Service: 12/26/19 Interval History: Patient is improving with regards to strength, but is not near baseline with ambulation ability. Patient denies CP, SOB, F/C, N/V, abdominal pain, dysuria, frequency, or other pain. Patient had 3 episodes of loose stools over the last 2 days without abdominal pain or blood. Family History: Unchanged from Admission Social History: Unchanged from Admission Past Medical History: Unchanged from Admission Objective Active Medications: Acetaminophen (Tylenol Tab*) 975 mg PO BID [facility] Last Admin: 12/26/19 08:48 Dose: 975 mg Amlodipine Besylate (Norvasc Tab*) 10 mg PO DAILY [facility] Last Admin: 12/26/19 08:49 Dose: 10 mg Aspirin (Ecotrin Ec Tab*) 325 mg PO QAM [facility] Last Admin: 12/26/19 08:50 Dose: 325 mg Atorvastatin Calcium (Lipitor*) 10 mg PO MoWeFr@0900 [facility]; Protocol Last Admin: 12/24/19 08:39 Dose: 10 mg Cyanocobalamin (Vitamin B12 Tab*) 1,000 mcg PO DAILY [facility] Last Admin: 12/26/19 08:50 Dose: 1,000 mcg Diphenhydramine HCl (Benadryl Po*) 25 mg PO Q6H PRN PRN Reason: lip swelling Enoxaparin Sodium (Lovenox(*)) 30 mg SUBCUT Q24H [facility] Last Admin: 12/26/19 14:32 Dose: 30 mg Famotidine (Pepcid Tab*) 20 mg PO BEDTIME [facility] Last Admin: 12/25/19 21:24 Dose: 20 mg Folic Acid (Folvite Tab*) 1 mg PO DAILY [facility] Last Admin: 12/26/19 08:49 Dose: 1 mg Gabapentin (Neurontin Cap(*)) 600 mg PO BID [facility] Last Admin: 12/26/19 08:50 Dose: 600 mg Hydroxychloroquine Sulfate (Plaquenil Tab*) 200 mg PO BID WITH MEALS [facility] Last Admin: 12/26/19 08:49 Dose: 200 mg Ceftriaxone Sodium 1 gm/ (Sodium Chloride) 50 mls @ 100 mls/hr IVPB Q24H [facility] Last Admin: 12/26/19 14:32 Dose: 100 mls/hr Loperamide HCl (Imodium Cap*) 2 mg PO .SEE DIRECTIONS PRN PRN Reason: DIARRHEA Last Admin: 12/26/19 14:32 Dose: 2 mg Losartan Potassium (Cozaar Tab*) 50 mg PO DAILY [facility] Last Admin: 12/26/19 08:49 Dose: 50 mg Nebivolol (Bystolic Tab (Nf)) 5 mg PO DAILY [facility] Last Admin: 12/26/19 09:11 Dose: Not Given Oxycodone/Acetaminophen (Percocet 5/325 Tab*) 1 tab PO Q6H PRN PRN Reason: PAIN - SEVERE Last Admin: 12/25/19 01:23 Dose: 1 tab Phenobarbital (Phenobarbital Tab(*)) 60 mg PO BID [facility] Last Admin: 12/26/19 08:49 Dose: 60 mg Senna (Senokot 8.6 Mg Tab*) 2 tab PO BEDTIME PRN PRN Reason: CONSTIPATION Tizanidine HCl (Zanaflex Tab*) 2 mg PO Q8H PRN PRN Reason: SPASMS Vital Signs - 8 hr 12/26/19 12/26/19 12/26/19 08:49 08:50 10:36 Temperature Pulse Rate Respiratory 18 18 18 Rate Blood Pressure (mmHg) O2 Sat by Pulse Oximetry 12/26/19 12/26/19 12/26/19 10:37 12:13 14:32 Temperature 97.4 F Pulse Rate 79 Respiratory 16 16 16 Rate Blood Pressure 101/61 (mmHg) O2 Sat by Pulse 100 Oximetry 12/26/19 16:00 Temperature 97.7 F Pulse Rate 66 Respiratory 16 Rate Blood Pressure 137/72 (mmHg) O2 Sat by Pulse 100 Oximetry Oxygen Devices in Use Now: None Appearance: Patient is a 59yo female who appears stated age and is sitting in the bed in [facility]. Eyes: No Scleral Icterus, PERRLA Ears/Nose/Mouth/Throat: NL Teeth, Lips, Gums, Clear Oropharnyx, Mucous Membranes Moist Neck: NL Appearance and Movements; NL JVP, Trachea Midline Respiratory: Symmetrical Chest Expansion and Respiratory Effort, Clear to Auscultation Cardiovascular: NL Sounds; No Murmurs; No JVD, RRR, No Edema Abdominal: NL Sounds; No Tenderness; No Distention, No Hepatosplenomegaly Lymphatic: No Cervical Adenopathy Skin: No Rash or Ulcers, No Nodules or Sclerosis Neurological: Alert and Oriented x 3, - - Right sided spastic weakness. CN II- XII intact. Result Diagrams: 12/25/19 11:25 12/25/19 11:25 Additional Lab and Data: Laboratory Results - last 24 hr Microbiology and Other Data: Microbiology 12/21/19 09:55 Urine Culture - Final Urine Strep Group B Normal Kitty Assess/Plan/Problems-Billing Assessment: Patient is a 59yo female with a PMH for Lupus, HTN, CKD, CVA with right sided weakness, here with increasing weakness and ambulatory dysfunction found to have findings consistent with urinary tract infection. - Patient Problems (1) UTI (urinary tract infection) Current Visit: No Status: Acute Comment: - Due to GBS - Continue Ceftriaxone day (12/21-12/27) Planned - Likely cause of recrudescence and worsening pain. - No longer experiencing urinary frequency and suprapubic pain. (2) Unable to ambulate Current Visit: No Status: Chronic Priority: High Onset Date: 11/07/14 Code(s): R26.2 - DIFFICULTY IN WALKING, NOT ELSEWHERE CLASSIFIED SNOMED Code(s ): 831228888 Comment: - PT recommends rehab - Calf stiff and edematous, possibly from spacitity, No DVT - Add on Tizanidine - Gradual improvement. - Hopeful D/C to home in next couple days. (3) Neutrophil dysfunction Current Visit: Yes Status: Acute Code(s): D72.0 - GENETIC ANOMALIES OF LEUKOCYTES SNOMED Code(s): 916390544 Comment: - Unclear cause, possibly due to medications AE (Phenobarbitol, Plaquenil) - Improved, check again in AM. - Cont Folic Acid and B12 (4) CKD (chronic kidney disease) stage 3, GFR 30-59 ml/min Current Visit: No Status: Acute Code(s): N18.3 - CHRONIC KIDNEY DISEASE, STAGE 3 (MODERATE) SNOMED Code(s): 967976571 Comment: - Creatinine at baseline today. - Creatinine peaked at 1.90 - Likely due to Lupus and worsened by poor oral intake. - Not worsened by ARB initiation (5) History of CVA (cerebrovascular accident) Current Visit: No Status: Acute Code(s): Z86.73 - PRSNL HX OF TIA (TIA), AND CEREB INFRC W/O RESID DEFICITS SNOMED Code(s): 655733271 Comment: - Left MCA territory, approx 30 yrs ago. Uses cane to ambulate. Contractures on right side. - CT head negative - Low concern for recurrent CVA (6) Intractable pain Current Visit: No Status: Acute Code(s): R52 - PAIN, UNSPECIFIED SNOMED Code(s): 88981987 Comment: - Tizanadine added 12/22 - Cont home Percocet - Continue PT through hospitalization - Scheduled Tylenol (7) Seizure disorder Current Visit: No Status: Acute Code(s): G40.909 - EPILEPSY, UNSP, NOT INTRACTABLE, WITHOUT STATUS EPILEPTICUS SNOMED Code(s): 740873851 Comment: - Continue phenobarbital, consider outpatient follow up with neurologist to reevaluate medication appropriateness. - Seizure Precautions (8) Lupus Current Visit: No Status: Chronic Code(s): M32.9 - SYSTEMIC LUPUS ERYTHEMATOSUS, UNSPECIFIED SNOMED Code(s): 24322553 Comment: - Continue hydroxychloroquine. - Not highly active disease. No sign of flare. - ESR mildly elevated. CRP WNL (9) DVT prophylaxis Current Visit: No Status: Acute Onset Date: 04/19/15 Code(s): WRT0892 - SNOMED Code(s): 009049149 Comment: - Lovenox (10) Full code status Current Visit: No Status: Acute Onset Date: 04/19/15 Code(s): Z78.9 - OTHER SPECIFIED HEALTH STATUS SNOMED Code(s): 924919449 Status and Disposition: Inpatient for UTI, Intractable Pain, and inability to ambulate. Hopeful D/C in next 1-2 days.
[2019-12-26] MEDS: Famotidine TAB* 20 MG PO SCH (20:54)
[2019-12-26] MEDS: oxyCODONE/Acetamin 5/325 MG* TAB PO PRN (20:54)
[2019-12-27] MEDS: oxyCODONE/Acetamin 5/325 MG* TAB PO PRN ×2 (03:16→20:10)
[2019-12-27] MEDS: Acetaminophen TAB* 325 MG PO SCH ×2 (09:28→20:09)
[2019-12-27] MEDS: Cyanocobalamin TAB* 500 MCG PO SCH (09:28)
[2019-12-27] MEDS: Atorvastatin* 10 MG TAB PO SCH (09:29)
[2019-12-27] MEDS: Gabapentin CAP(*) 300 MG PO SCH ×2 (09:29→20:09)
[2019-12-27] MEDS: Folic Acid TAB* 1 MG PO SCH (09:30)
[2019-12-27] MEDS: amLODIPine TAB* 5 MG PO SCH (09:31)
[2019-12-27] MEDS: Aspirin EC TAB* 325 MG PO SCH (09:31)
[2019-12-27] MEDS: PHENobarbital TAB(*) 30 MG PO SCH ×2 (09:31→20:10)
[2019-12-27] MEDS: Hydroxychloroquine TAB* 200 MG PO SCH ×2 (09:31→17:04)
[2019-12-27] MEDS: Losartan TAB* 25 MG PO SCH (09:31)
[2019-12-27] MEDS: DULoxetine DR CAP* 30 MG CAP.DR PO SCH (09:57)
[2019-12-27] MEDS: CMCS: Nebivolol TAB (NF) 2.5 MG TAB PO SCH (09:57)
[2019-12-27] MEDS: cefTRIAXone(*) 1 GM in NS 0.9% 50 ML* 50 ML IVPB SCH (14:13)
[2019-12-27] MEDS: Enoxaparin(*) 30 MG/0.3 ML SYR SUBCUT SCH (14:13)
[2019-12-27 15:24] LABS: BUN/Creatinine Ratio 12.8 (8-20); Blood Urea Nitrogen 19 mg/dL (6-24); CO2 Carbon Dioxide 24 mmol/L (22-32); Calcium 8.8 mg/dL (8.6-10.3); Chloride 107 mmol/L (101-111); EGFR African American 43.3 (>60); EGFR Non-African American 35.8 (>60); Glucose 88 mg/dL (70-100); Magnesium 1.8 mg/dL (1.9-2.7); Sodium 137 mmol/L (135-145)
[2019-12-27] MEDS ORDERED: Magnesium Sulfate 1 GM IV* 1 GM/100 ML BAG IV ONE (15:27)
[2019-12-27 16:22] LABS: Anion Gap 6 mmol/L (2-11)
--- NOTE | 2019-12-27 17:58 | PN ---
Subjective Date of Service: 12/27/19 Interval History: Patient is sad and discouraged by worsening pain in her right arm. Patient does not state she has worsening weakness, but states that she is limited by pain. Patient denies CP, SOB, abdominal pain, diarrhea, F/C, N/V, or other pain. Family History: Unchanged from Admission Social History: Unchanged from Admission Past Medical History: Unchanged from Admission Objective Active Medications: Acetaminophen (Tylenol Tab*) 975 mg PO BID [facility] Last Admin: 12/27/19 09:28 Dose: 975 mg Amlodipine Besylate (Norvasc Tab*) 10 mg PO DAILY [facility] Last Admin: 12/27/19 09:31 Dose: 10 mg Aspirin (Ecotrin Ec Tab*) 325 mg PO QAM [facility] Last Admin: 12/27/19 09:31 Dose: 325 mg Atorvastatin Calcium (Lipitor*) 10 mg PO MoWeFr@0900 [facility]; Protocol Last Admin: 12/27/19 09:29 Dose: 10 mg Cyanocobalamin (Vitamin B12 Tab*) 1,000 mcg PO DAILY [facility] Last Admin: 12/27/19 09:28 Dose: 1,000 mcg Diphenhydramine HCl (Benadryl Po*) 25 mg PO Q6H PRN PRN Reason: lip swelling Duloxetine HCl (Cymbalta Cap*) 30 mg PO DAILY [facility] Last Admin: 12/27/19 09:57 Dose: 30 mg Enoxaparin Sodium (Lovenox(*)) 30 mg SUBCUT Q24H [facility] Last Admin: 12/27/19 14:13 Dose: 30 mg Famotidine (Pepcid Tab*) 20 mg PO BEDTIME [facility] Last Admin: 12/26/19 20:54 Dose: 20 mg Folic Acid (Folvite Tab*) 1 mg PO DAILY [facility] Last Admin: 12/27/19 09:30 Dose: 1 mg Gabapentin (Neurontin Cap(*)) 600 mg PO BID [facility] Last Admin: 12/27/19 09:29 Dose: 600 mg Hydroxychloroquine Sulfate (Plaquenil Tab*) 200 mg PO BID WITH MEALS [facility] Last Admin: 12/27/19 17:04 Dose: 200 mg Ceftriaxone Sodium 1 gm/ (Sodium Chloride) 50 mls @ 100 mls/hr IVPB Q24H [facility] Last Admin: 12/27/19 14:13 Dose: 100 mls/hr Loperamide HCl (Imodium Cap*) 2 mg PO .SEE DIRECTIONS PRN PRN Reason: DIARRHEA Last Admin: 12/26/19 14:32 Dose: 2 mg Losartan Potassium (Cozaar Tab*) 50 mg PO DAILY [facility] Last Admin: 12/27/19 09:31 Dose: 50 mg Nebivolol (Bystolic Tab (Nf)) 5 mg PO DAILY [facility] Last Admin: 12/27/19 09:57 Dose: 5 mg Oxycodone/Acetaminophen (Percocet 5/325 Tab*) 1 tab PO Q6H PRN PRN Reason: PAIN - SEVERE Last Admin: 12/27/19 03:16 Dose: 1 tab Phenobarbital (Phenobarbital Tab(*)) 60 mg PO BID [facility] Last Admin: 12/27/19 09:31 Dose: 60 mg Senna (Senokot 8.6 Mg Tab*) 2 tab PO BEDTIME PRN PRN Reason: CONSTIPATION Tizanidine HCl (Zanaflex Tab*) 2 mg PO Q8H PRN PRN Reason: SPASMS Vital Signs - 8 hr 12/27/19 12/27/19 12/27/19 11:53 12:09 16:20 Temperature 97.3 F 97.7 F Pulse Rate 69 72 Respiratory 18 14 16 Rate Blood Pressure 114/69 122/78 (mmHg) O2 Sat by Pulse 100 100 Oximetry Oxygen Devices in Use Now: None Appearance: Patient is a 59yo female who appears stated age and is sitting in the bed in [facility]. Eyes: No Scleral Icterus, PERRLA Ears/Nose/Mouth/Throat: NL Teeth, Lips, Gums, Clear Oropharnyx, Mucous Membranes Moist Neck: NL Appearance and Movements; NL JVP, Trachea Midline Respiratory: Symmetrical Chest Expansion and Respiratory Effort, Clear to Auscultation Cardiovascular: NL Sounds; No Murmurs; No JVD, RRR, No Edema Abdominal: NL Sounds; No Tenderness; No Distention, No Hepatosplenomegaly Lymphatic: No Cervical Adenopathy Extremities: No Edema, No Clubbing, Cyanosis Skin: No Nodules or Sclerosis Neurological: Alert and Oriented x 3, - - Right sided weakness. Result Diagrams: 12/25/19 11:25 12/27/19 06:00 Additional Lab and Data: Laboratory Results - last 24 hr Microbiology and Other Data: Microbiology 12/21/19 09:55 Urine Culture - Final Urine Strep Group B Normal Kitty Assess/Plan/Problems-Billing Assessment: Patient is a 59yo female with a PMH for Lupus, HTN, CKD, CVA with right sided weakness, here with increasing weakness and ambulatory dysfunction found to have findings consistent with urinary tract infection. - Patient Problems (1) UTI (urinary tract infection) Current Visit: No Status: Acute Comment: - Due to GBS - Continue Ceftriaxone day (12/21-12/27) Planned - Likely cause of recrudescence and worsening pain. - No longer experiencing urinary frequency and suprapubic pain. (2) Unable to ambulate Current Visit: No Status: Chronic Priority: High Onset Date: 11/07/14 Code(s): R26.2 - DIFFICULTY IN WALKING, NOT ELSEWHERE CLASSIFIED SNOMED Code(s ): 756033333 Comment: - PT recommends rehab - Calf stiff and edematous, possibly from spacitity, No DVT - Add on Tizanidine - Gradual improvement. - Hopeful D/C to home in next couple days to rehab facility (3) Neutrophil dysfunction Current Visit: Yes Status: Acute Code(s): D72.0 - GENETIC ANOMALIES OF LEUKOCYTES SNOMED Code(s): 747666366 Comment: - Unclear cause, possibly due to medications AE (Phenobarbitol, Plaquenil) - Improved, CBC not available today. - Cont Folic Acid and B12 (4) CKD (chronic kidney disease) stage 3, GFR 30-59 ml/min Current Visit: No Status: Acute Code(s): N18.3 - CHRONIC KIDNEY DISEASE, STAGE 3 (MODERATE) SNOMED Code(s): 783954021 Comment: - Creatinine stable and at baseline today. - Creatinine peaked at 1.90 - Likely due to Lupus and worsened by poor oral intake. - Not worsened by ARB initiation (5) History of CVA (cerebrovascular accident) Current Visit: No Status: Acute Code(s): Z86.73 - PRSNL HX OF TIA (TIA), AND CEREB INFRC W/O RESID DEFICITS SNOMED Code(s): 122686362 Comment: - Left MCA territory, approx 30 yrs ago. Uses cane to ambulate. Contractures on right side. - CT head negative - Low concern for recurrent CVA (6) Intractable pain Current Visit: No Status: Acute Code(s): R52 - PAIN, UNSPECIFIED SNOMED Code(s): 60346701 Comment: - Tizanadine added 12/22 - Cont home Percocet - Continue PT through hospitalization - Scheduled Tylenol - Add on Duloxetine for pain and mood. (7) Seizure disorder Current Visit: No Status: Acute Code(s): G40.909 - EPILEPSY, UNSP, NOT INTRACTABLE, WITHOUT STATUS EPILEPTICUS SNOMED Code(s): 922681242 Comment: - Continue phenobarbital, consider outpatient follow up with neurologist to reevaluate medication appropriateness. - Seizure Precautions (8) Lupus Current Visit: No Status: Chronic Code(s): M32.9 - SYSTEMIC LUPUS ERYTHEMATOSUS, UNSPECIFIED SNOMED Code(s): 53282687 Comment: - Continue hydroxychloroquine. - Not highly active disease. No sign of flare. - ESR mildly elevated. CRP WNL (9) DVT prophylaxis Current Visit: No Status: Acute Onset Date: 04/19/15 Code(s): FDD9925 - SNOMED Code(s): 213220357 Comment: - Lovenox (10) Full code status Current Visit: No Status: Acute Onset Date: 04/19/15 Code(s): Z78.9 - OTHER SPECIFIED HEALTH STATUS SNOMED Code(s): 821982791 Status and Disposition: Inpatient for UTI, Intractable Pain, and inability to ambulate. Hopeful D/C in next 1-2 days.
[2019-12-27] MEDS: Famotidine TAB* 20 MG PO SCH (20:10)
[2019-12-28 06:03] LABS: ABS Eosinophils 0.1 10^3/ul (0-0.6); ABS Lymphocytes 1.2 10^3/ul (1.0-4.8); ABS Monocytes 0.3 10^3/ul (0-0.8); ABS Neutrophils 1.3 10^3/ul (1.5-7.7); Eosinophil % 2.8 %; Hematocrit 29 % (35-47); Hemoglobin 9.4 g/dL (12.0-16.0); Lymphocyte % 41.5 %; Mean Corpuscular HGB Conc 32 g/dL (31-36); Mean Corpuscular Hemoglobin 28 pg (27-31); Mean Corpuscular Volume 87 fL (80-97); Mean Platelet Volume 7.2 fL (7.4-10.4); Nucleated Red Blood Cells % 0.2; Platelet Count 183 10^3/uL (150-450); Red Blood Count 3.34 10^6 /uL (3.70-4.87); Red Cell Distribution Width 14 % (10-15); White Blood Count 2.8 10^3/uL (3.5-10.8)
[2019-12-28] MEDS: DULoxetine DR CAP* 30 MG CAP.DR PO SCH (08:35)
[2019-12-28] MEDS: Acetaminophen TAB* 325 MG PO SCH ×2 (08:36→21:50)
[2019-12-28] MEDS: amLODIPine TAB* 5 MG PO SCH (08:36)
[2019-12-28] MEDS: Cyanocobalamin TAB* 500 MCG PO SCH (08:37)
[2019-12-28] MEDS: Gabapentin CAP(*) 300 MG PO SCH ×2 (08:37→21:51)
[2019-12-28] MEDS: Losartan TAB* 25 MG PO SCH (08:37)
[2019-12-28] MEDS: Aspirin EC TAB* 325 MG PO SCH (08:37)
[2019-12-28] MEDS: Folic Acid TAB* 1 MG PO SCH (08:37)
[2019-12-28] MEDS: CMCS: Nebivolol TAB (NF) 2.5 MG TAB PO SCH (08:38)
[2019-12-28] MEDS: Hydroxychloroquine TAB* 200 MG PO SCH ×2 (08:38→17:20)
[2019-12-28] MEDS: PHENobarbital TAB(*) 30 MG PO SCH ×2 (08:40→21:51)
[2019-12-28] MEDS: Enoxaparin(*) 30 MG/0.3 ML SYR SUBCUT SCH (13:49)
[2019-12-28] MEDS: oxyCODONE/Acetamin 5/325 MG* TAB PO PRN (13:50)
--- NOTE | 2019-12-28 18:37 | PN ---
Subjective Date of Service: 12/28/19 Interval History: Ms. Rao states she is feeling "alright." She c/o continued weakness and difficulty with walking, although this has improved. Worked with PT today, but declined to ambulate due to RUE pain and weakness; she still want to go home vs [facility], although recommendation is for discharge to [facility]. Family History: Unchanged from Admission Social History: Unchanged from Admission Past Medical History: Unchanged from Admission Objective Active Medications: Acetaminophen (Tylenol Tab*) 975 mg PO BID [facility] Last Admin: 12/28/19 08:36 Dose: 975 mg Amlodipine Besylate (Norvasc Tab*) 10 mg PO DAILY [facility] Last Admin: 12/28/19 08:36 Dose: 10 mg Aspirin (Ecotrin Ec Tab*) 325 mg PO QAM [facility] Last Admin: 12/28/19 08:37 Dose: 325 mg Atorvastatin Calcium (Lipitor*) 10 mg PO MoWeFr@0900 [facility]; Protocol Last Admin: 12/27/19 09:29 Dose: 10 mg Cyanocobalamin (Vitamin B12 Tab*) 1,000 mcg PO DAILY [facility] Last Admin: 12/28/19 08:37 Dose: 1,000 mcg Diphenhydramine HCl (Benadryl Po*) 25 mg PO Q6H PRN PRN Reason: lip swelling Duloxetine HCl (Cymbalta Cap*) 30 mg PO DAILY [facility] Last Admin: 12/28/19 08:35 Dose: 30 mg Enoxaparin Sodium (Lovenox(*)) 30 mg SUBCUT Q24H [facility] Last Admin: 12/28/19 13:49 Dose: 30 mg Famotidine (Pepcid Tab*) 20 mg PO BEDTIME [facility] Last Admin: 12/27/19 20:10 Dose: 20 mg Folic Acid (Folvite Tab*) 1 mg PO DAILY [facility] Last Admin: 12/28/19 08:37 Dose: 1 mg Gabapentin (Neurontin Cap(*)) 600 mg PO BID [facility] Last Admin: 12/28/19 08:37 Dose: 600 mg Hydroxychloroquine Sulfate (Plaquenil Tab*) 200 mg PO BID WITH MEALS [facility] Last Admin: 12/28/19 17:20 Dose: 200 mg Loperamide HCl (Imodium Cap*) 2 mg PO .SEE DIRECTIONS PRN PRN Reason: DIARRHEA Last Admin: 12/26/19 14:32 Dose: 2 mg Losartan Potassium (Cozaar Tab*) 50 mg PO DAILY [facility] Last Admin: 12/28/19 08:37 Dose: 50 mg Nebivolol (Bystolic Tab (Nf)) 5 mg PO DAILY [facility] Last Admin: 12/28/19 08:38 Dose: 5 mg Oxycodone/Acetaminophen (Percocet 5/325 Tab*) 1 tab PO Q6H PRN PRN Reason: PAIN - SEVERE Last Admin: 12/28/19 13:50 Dose: 1 tab Phenobarbital (Phenobarbital Tab(*)) 60 mg PO BID [facility] Last Admin: 12/28/19 08:40 Dose: 60 mg Senna (Senokot 8.6 Mg Tab*) 2 tab PO BEDTIME PRN PRN Reason: CONSTIPATION Tizanidine HCl (Zanaflex Tab*) 2 mg PO Q8H PRN PRN Reason: SPASMS Vital Signs: Temp Pulse Resp BP Pulse Ox 98.3 F 69 18 130/79 100 12/28/19 15:19 12/28/19 15:19 12/28/19 16:36 12/28/19 15:19 12/28/19 15:19 Oxygen Devices in Use Now: None Appearance: Ms. Rao is an overweight, middle-aged, black woman who is sitting up in bed. She appears to be in no acute distress. Eyes: No Scleral Icterus, PERRLA Ears/Nose/Mouth/Throat: NL Teeth, Lips, Gums, Clear Oropharnyx, Mucous Membranes Moist Neck: NL Appearance and Movements; NL JVP, Trachea Midline Respiratory: Symmetrical Chest Expansion and Respiratory Effort, Clear to Auscultation Cardiovascular: NL Sounds; No Murmurs; No JVD, RRR, No Edema Abdominal: NL Sounds; No Tenderness; No Distention, No Hepatosplenomegaly Extremities: No Edema, No Clubbing, Cyanosis Neurological: Alert and Oriented x 3, - - RUE contracture; RLE 4/5 hip flexion, plantar/dorsiflexion; LUE, LLE with 5/5 strength Result Diagrams: 12/28/19 05:30 12/27/19 06:00 Additional Lab and Data: Laboratory Results - last 24 hr Microbiology and Other Data: Microbiology 12/21/19 09:55 Urine Culture - Final Urine Strep Group B Normal Kitty Assess/Plan/Problems-Billing Assessment: Patient is a 59yo female with a PMH for Lupus, HTN, CKD, CVA with right sided weakness, here with increasing weakness and ambulatory dysfunction found to have findings consistent with urinary tract infection. - Patient Problems (1) UTI (urinary tract infection) Comment: - Due to GBS - Ccompleted 7 day course of ceftriaxone - Likely cause of recrudescence and worsening pain - No longer experiencing urinary frequency or suprapubic pain. (2) Unable to ambulate Comment: - PT continues to recommend rehab - Calf stiff and edematous, possibly from spacitity - US RLE negative for DVT - Add on Tizanidine - Gradual improvement - Hopeful D/C in next couple days to rehab facility vs home (3) Neutrophil dysfunction Comment: - Unclear cause, possibly due to medications AE (Phenobarbitol, Plaquenil) - Improved, stable at this time - Cont Folic Acid and B12 (4) History of CVA (cerebrovascular accident) Comment: - Left MCA territory, approx 30 yrs ago. Uses cane to ambulate. Contractures on right side. - CT head negative - Low concern for recurrent CVA (5) Intractable pain Comment: - Tizanadine added 12/22 - Cont home Percocet - Continue PT through hospitalization - Scheduled Tylenol - Add on Duloxetine for pain and mood (6) Lupus Comment: - Continue hydroxychloroquine. - Not highly active disease. No sign of flare. - ESR mildly elevated. CRP WNL (7) Seizure disorder Comment: - Continue phenobarbital - consider outpatient follow up with neurologist to reevaluate medication appropriateness - Seizure Precautions (8) CKD (chronic kidney disease) stage 3, GFR 30-59 ml/min Comment: - Creatinine stable and at baseline today. - Creatinine peaked at 1.90 - Likely due to Lupus and worsened by poor oral intake. - Not worsened by ARB initiation (9) DVT prophylaxis Comment: - Lovenox (10) Full code status Status and Disposition: Inpatient for UTI, Intractable Pain, and inability to ambulate. Hopeful D/C in next 1-2 days.
[2019-12-28] MEDS: Famotidine TAB* 20 MG PO SCH (21:51)
[2019-12-29] MEDS: Gabapentin CAP(*) 300 MG PO SCH ×2 (08:53→20:45)
[2019-12-29] MEDS: Cyanocobalamin TAB* 500 MCG PO SCH (08:54)
[2019-12-29] MEDS: Aspirin EC TAB* 325 MG PO SCH (08:54)
[2019-12-29] MEDS: amLODIPine TAB* 5 MG PO SCH (08:54)
[2019-12-29] MEDS: DULoxetine DR CAP* 30 MG CAP.DR PO SCH (08:55)
[2019-12-29] MEDS: Losartan TAB* 25 MG PO SCH (08:55)
[2019-12-29] MEDS: PHENobarbital TAB(*) 30 MG PO SCH ×2 (08:55→20:44)
[2019-12-29] MEDS: Folic Acid TAB* 1 MG PO SCH (08:55)
[2019-12-29] MEDS: CMCS: Nebivolol TAB (NF) 2.5 MG TAB PO SCH (08:56)
[2019-12-29] MEDS: Atorvastatin* 10 MG TAB PO SCH (08:56)
[2019-12-29] MEDS: Hydroxychloroquine TAB* 200 MG PO SCH ×2 (08:56→17:32)
[2019-12-29] MEDS: Acetaminophen TAB* 325 MG PO SCH ×2 (08:56→20:44)
[2019-12-29] MEDS: oxyCODONE/Acetamin 5/325 MG* TAB PO PRN (12:37)
--- NOTE | 2019-12-29 13:13 | PN ---
Subjective Date of Service: 12/29/19 Interval History: Ms. Rao states she is tired today. She was up with PT walking halls with no assistance today. She denies CP, SBO, cough, fever/chills. She had a BM 2d ago. She has pain on the R side of the body, but no pain elsewhere. Denies dysuria, freq. urgency, retention. No other complaints today. Family History: Unchanged from Admission Social History: Unchanged from Admission Past Medical History: Unchanged from Admission Objective Active Medications: Acetaminophen (Tylenol Tab*) 975 mg PO BID [facility] Last Admin: 12/29/19 08:56 Dose: 975 mg Amlodipine Besylate (Norvasc Tab*) 10 mg PO DAILY [facility] Last Admin: 12/29/19 08:54 Dose: 10 mg Aspirin (Ecotrin Ec Tab*) 325 mg PO QAM [facility] Last Admin: 12/29/19 08:54 Dose: 325 mg Atorvastatin Calcium (Lipitor*) 10 mg PO MoWeFr@0900 [facility]; Protocol Last Admin: 12/29/19 08:56 Dose: 10 mg Cyanocobalamin (Vitamin B12 Tab*) 1,000 mcg PO DAILY [facility] Last Admin: 12/29/19 08:54 Dose: 1,000 mcg Diphenhydramine HCl (Benadryl Po*) 25 mg PO Q6H PRN PRN Reason: lip swelling Duloxetine HCl (Cymbalta Cap*) 30 mg PO DAILY [facility] Last Admin: 12/29/19 08:55 Dose: 30 mg Enoxaparin Sodium (Lovenox(*)) 30 mg SUBCUT Q24H [facility] Last Admin: 12/28/19 13:49 Dose: 30 mg Famotidine (Pepcid Tab*) 20 mg PO BEDTIME [facility] Last Admin: 12/28/19 21:51 Dose: 20 mg Folic Acid (Folvite Tab*) 1 mg PO DAILY [facility] Last Admin: 12/29/19 08:55 Dose: 1 mg Gabapentin (Neurontin Cap(*)) 600 mg PO BID [facility] Last Admin: 12/29/19 08:53 Dose: 600 mg Hydroxychloroquine Sulfate (Plaquenil Tab*) 200 mg PO BID WITH MEALS [facility] Last Admin: 12/29/19 08:56 Dose: 200 mg Loperamide HCl (Imodium Cap*) 2 mg PO .SEE DIRECTIONS PRN PRN Reason: DIARRHEA Last Admin: 12/26/19 14:32 Dose: 2 mg Losartan Potassium (Cozaar Tab*) 50 mg PO DAILY [facility] Last Admin: 12/29/19 08:55 Dose: 50 mg Nebivolol (Bystolic Tab (Nf)) 5 mg PO DAILY [facility] Last Admin: 12/29/19 08:56 Dose: 5 mg Oxycodone/Acetaminophen (Percocet 5/325 Tab*) 1 tab PO Q6H PRN PRN Reason: PAIN - SEVERE Last Admin: 12/29/19 12:37 Dose: 1 tab Phenobarbital (Phenobarbital Tab(*)) 60 mg PO BID [facility] Last Admin: 12/29/19 08:55 Dose: 60 mg Senna (Senokot 8.6 Mg Tab*) 2 tab PO BEDTIME PRN PRN Reason: CONSTIPATION Tizanidine HCl (Zanaflex Tab*) 2 mg PO Q8H PRN PRN Reason: SPASMS Vital Signs: Temp Pulse Resp BP Pulse Ox 97.6 F 65 16 127/76 100 12/29/19 08:18 12/29/19 08:18 12/29/19 12:37 12/29/19 08:18 12/29/19 08:18 Oxygen Devices in Use Now: None Appearance: Ms. Rao is an overweight, middle-aged white female who is sitting up in chair with LE elevated; she appears older than states age and appears chronically ill. NAD. Eyes: No Scleral Icterus, PERRLA Ears/Nose/Mouth/Throat: NL Teeth, Lips, Gums, Clear Oropharnyx, Mucous Membranes Moist Neck: NL Appearance and Movements; NL JVP, Trachea Midline Respiratory: Symmetrical Chest Expansion and Respiratory Effort, Clear to Auscultation Cardiovascular: NL Sounds; No Murmurs; No JVD, RRR, No Edema Abdominal: NL Sounds; No Tenderness; No Distention, No Hepatosplenomegaly Extremities: No Edema, No Clubbing, Cyanosis Neurological: Alert and Oriented x 3, - - LUE, LLE with 5/5 strength; RUE 4/5 hip flexion, dorsi/plantarflexion, RLE with contracture and minimal strength consistent with h/o CVA; 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 - Patient Problems (1) UTI (urinary tract infection) Comment: -due to GBS -completed 7 day course of ceftriaxone -likely cause of recrudescence and worsening pain -no longer experiencing urinary frequency or suprapubic pain (2) Unable to ambulate Comment: -PT recommends continued ambulation today, and suspect patient is almost back to baseline and will likely be able to return to [employer] -calf stiff, possibly from spacitity -US RLE negative for DVT -continue Tizanidine -gradual improvement -hopeful d/c in a.m. (3) Neutrophil dysfunction Comment: -unclear cause, possibly due to medications AE (Phenobarbitol, Plaquenil) -improved, stable at this time -cont Folic Acid and B12 (4) History of CVA (cerebrovascular accident) Comment: -left MCA territory, approx 30 yrs ago -uses cane to ambulate; contractures on right side -CT head negative -low concern for recurrent CVA (5) Intractable pain Comment: -Tizanadine added 12/22 -cont home Percocet -continue PT through hospitalization -scheduled Tylenol -continue Duloxetine for pain and mood (6) Lupus Comment: -continue hydroxychloroquine -not highly active disease; no sign of flare -ESR mildly elevated; CRP WNL (7) Seizure disorder Comment: -Continue phenobarbital -consider outpatient follow up with neurologist to reevaluate medication appropriateness -Seizure Precautions (8) CKD (chronic kidney disease) stage 3, GFR 30-59 ml/min Comment: -Creatinine stable and at baseline today -Creatinine peaked at 1.90 -Likely due to Lupus and worsened by poor oral intake -Not worsened by ARB initiation (9) DVT prophylaxis Comment: -Lovenox (10) Full code status Status and Disposition: Inpatient for UTI, Intractable Pain, and inability to ambulate. Hopeful D/C in next 1-2 days.
[2019-12-29] MEDS: Enoxaparin(*) 30 MG/0.3 ML SYR SUBCUT SCH (14:48)
[2019-12-29] MEDS: Famotidine TAB* 20 MG PO SCH (20:43)
[2019-12-30] MEDS: oxyCODONE/Acetamin 5/325 MG* TAB PO PRN (04:31)
[2019-12-30] MEDS: CMCS: Nebivolol TAB (NF) 2.5 MG TAB PO SCH (09:02)
[2019-12-30] MEDS: Folic Acid TAB* 1 MG PO SCH (09:03)
[2019-12-30] MEDS: Gabapentin CAP(*) 300 MG PO SCH (09:03)
[2019-12-30] MEDS: Acetaminophen TAB* 325 MG PO SCH (09:04)
[2019-12-30] MEDS: amLODIPine TAB* 5 MG PO SCH (09:04)
[2019-12-30] MEDS: PHENobarbital TAB(*) 30 MG PO SCH (09:04)
[2019-12-30] MEDS: Losartan TAB* 25 MG PO SCH (09:04)
[2019-12-30] MEDS: Aspirin EC TAB* 325 MG PO SCH (09:04)
[2019-12-30] MEDS: DULoxetine DR CAP* 30 MG CAP.DR PO SCH (09:04)
[2019-12-30] MEDS: Cyanocobalamin TAB* 500 MCG PO SCH (09:04)
[2019-12-30] MEDS: Hydroxychloroquine TAB* 200 MG PO SCH (09:04)
[2019-12-30 12:36] VITALS: BP 106/64
[2019-12-30] MEDS: Enoxaparin(*) 30 MG/0.3 ML SYR SUBCUT SCH (13:27)
--- NOTE | 2019-12-31 00:50 | DS ---
CC: Dr. Barrera; Dr. Waldo Real* DISCHARGE SUMMARY: DATE OF ADMISSION: 12/21/19 DATE OF DISCHARGE: 12/30/19 PRIMARY CARE PROVIDER: Dr. Barrera. ATTENDING PHYSICIAN: Dr. Waldo Real* (dictated by ANALI Rowe). PRIMARY DIAGNOSES: 1. Urinary tract infection. 2. Recrudescence of cerebrovascular accident, resolved. 3. Neutrophil dysfunction. 4. Inability to ambulate, resolved. SECONDARY DIAGNOSES: 1. Lupus. 2. Hypertension. 3. Hyperlipidemia. 4. Seizure disorder. 5. History of cerebrovascular accident with chronic right-sided weakness. 6. Chronic kidney disease. 7. Gastroesophageal reflux disease. DIAGNOSTIC STUDIES AND LABORATORY DATA: 1. Right hip and pelvis, impression: No etiology for right side pain evident. 2. Right knee, mild generalized soft tissue edema and skeletal muscle atrophy. 3. CT of the brain without, impression: No acute intracranial abnormality by CT. Old left MCA territory infarct. 4. Right lower extremity ultrasound, impression: No evidence for DVT. DISCHARGE MEDICATIONS: Home medications: 1. Acetaminophen 650 mg p.o. q.6 hours p.r.n., MDD 4. 2. Amlodipine 10 mg p.o. daily. 3. Aspirin 325 mg p.o. daily. 4. Calcium carbonate/vitamin D3 at 1 tablet p.o. b.i.d. 5. Gabapentin 600 mg p.o. b.i.d. 6. Hydrochloroquine 200 mg p.o. b.i.d. with meals. 7. Nebivolol 5 mg p.o. daily. 8. Oxycodone/acetaminophen 5/325 mg 1 tablet p.o. q.6 hours p.r.n. 9. Phenobarbital 64.8 mg p.o. b.i.d. 10. Rosuvastatin 5 mg p.o. on Friday, Friday, and Friday. New home medications: 1. Cyanocobalamin 1000 mcg p.o. daily. 2. Duloxetine DR 30 mg p.o. daily. 3. Folic acid 1 mg p.o. daily. 4. Losartan 50 mg p.o. daily. 5. Tizanidine 2 mg p.o. q.8 hours p.r.n. HISTORY OF PRESENT ILLNESS/HOSPITAL COURSE: Ms. Rao is a 59-year-old female with a past medical history of lupus, seizure disorder, hypertension, hyperlipidemia, and history of CVA in 1986 resulting in right-sided weakness, who presented to the ER on 12/21/19 with complaints of right-sided pain and increased right-sided weakness. For full and complete details, please see the history and physical dictated by Jina Sutton, but in short, the patient presented with the above symptoms. Imaging of the pelvis, right hip and knee was obtained and was unremarkable. CT of the brain was obtained and showed no acute abnormality, but did show old left MCA territory infarct. The patient was found to have an abnormal urinalysis prompting treatment for urinary tract infection. She received 7 days of ceftriaxone IV. She did report symptoms of UTI including dysuria, suprapubic pain, and frequency. Once her course of antibiotics were completed, she denies urinary tract infection symptoms. The patient presented with worsening right-sided weakness and difficulty with ambulation. She has a history of CVA with residual right-sided weakness. A CT of the head was obtained and it was negative. The suspicion is that the patient 's urinary tract infection was exacerbating her symptoms and causing a recrudescence. Once her urinary tract infection was treated, her symptoms improved gradually daily. The patient worked with physical therapy while in the hospital. By the time of discharge, she was ambulating the halls without difficulty. Per PT, she is walking distances further than needed within her [facility]. She is at her baseline at discharge. Throughout her stay, the patient continued to complain of right-sided pain. Imaging revealed no acute fractures. The patient's pain improved throughout her stay. She was started on tizanidine and duloxetine for pain. Again, her pain did improve throughout her stay, and at the time of discharge, she reports her pain at 3/10. The patient was noted to have some neutrophil dysfunction during her stay. At admission, her neutrophils were within normal limits, but eventually dropped to a low of 0.9 absolute neutrophils; at the time discharge, this number is trending up. She should follow up with her primary care provider regarding further workup. A CBC has been ordered for the patient that she should have prior to her primary care provider appointment. At the time of discharge, the patient denies chest pain, shortness of breath, cough, fever, chills, abdominal pain, nausea, vomiting, diarrhea, constipation. She denies dysuria, frequency, urgency, or retention. She does complain of 3/10 pain on the right side, but reports improvement from admission. Ms. Rao is stable for discharge to [facility]. PHYSICAL EXAMINATION: Vital Signs: Temperature 98.2 temporal, heart rate 69, respiratory rate 16, oxygen saturation 100% on room air, blood pressure 129/71. General: Ms. Rao is a well-developed, well-nourished, overweight, middle- aged black female, who is sitting up in bed. She appears somewhat older than her stated age. She appears to be in no acute distress. HEENT: PERRL. EOMI. Nonicteric sclerae. Hearing is grossly intact. Oral mucous membranes are moist. There are no lesions. Oropharynx is clear. Tongue is at midline. Palate elevates symmetrically. Cardiovascular: Regular rate and rhythm with S1 , S2 present. No murmurs, rubs, clicks, or gallops. There is no JVD or peripheral edema. Pulmonary: Symmetrical chest expansion without use of accessory muscles. Clear to auscultation bilaterally without rhonchi, wheeze, or rales. Abdomen: Bowel sounds in all quadrants, soft, nontender to palpation. Musculoskeletal: Left-sided movement intact. The patient is with residual deficit on the right side from CVA in 1980s. Neuro: The patient is awake. She is alert and oriented x3. Left upper and left lower extremity strength is 5/5; right upper extremity 4/5; hip flexion 4/5, extension 5/5; dorsiflexion and plantarflexion 4/5. The patient has chronic right upper extremity contracture. 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 DISCHARGE PLAN: Ms. Rao will be discharged home to [facility]. DIET: Heart healthy. ACTIVITY: 1. Continue use of cane or walker. 2. Activity as tolerated. 3. Continue PT with [facility]. EDUCATION: 1. Repeat blood work in 3 to 5 days and prior to appointment with primary care provider. 2. Follow up with primary care provider in 4 to 7 days, discuss recent hospitalization, neutrophil dysfunction, and recent CBC. 3. Return to the ER or nearest hospital if she experiences any return or worsening of the symptoms, chest pain or discomfort, shortness of breath, dizziness, lightheadedness, loss of consciousness, high fevers, chills, night sweats, or any other worrisome signs or symptoms. This is a summarized report of a complex medical history and hospital stay. For further details, please see the entire medical record. TIME SPENT: Approximately 35 minutes was spent on this discharge, greater than half that time was spent [id number] with the patient discussing discharge plans and instructions. ANALI ALEXANDER [id number]/[facility] #: [id number] MUSHTAQ
== END 2019-12-30 13:52 | disposition home or self-care (01) | DRG 690 ==
LOC: ED 06:31 → MEDTELE 12:26 → OBSVTOIN 12-24 16:00
PROVIDERS: ADMIT Hospitalist; ATTEND Internal Medicine
DX: N39.0 Urinary tract infection, site not specified (principal); I69.354 Hemiplegia and hemiparesis following cerebral infarction affecting left non-dominant side; M32.9 Systemic lupus erythematosus, unspecified; I10 Essential (primary) hypertension; G40.909 Epilepsy, unspecified, not intractable, without status epilepticus; K21.9 Gastro-esophageal reflux disease without esophagitis; E78.5 Hyperlipidemia, unspecified; G62.9 Polyneuropathy, unspecified; I12.9 Hypertensive chronic kidney disease with stage 1 through stage 4 chronic kidney disease, or unspecified chronic kidney disease; R26.2 Difficulty in walking, not elsewhere classified; E89.0 Postprocedural hypothyroidism; M19.90 Unspecified osteoarthritis, unspecified site; K58.9 Irritable bowel syndrome, unspecified; H91.91 Unspecified hearing loss, right ear; F41.9 Anxiety disorder, unspecified; F32.9 Major depressive disorder, single episode, unspecified; Z96.643 Presence of artificial hip joint, bilateral; N18.3 Chronic kidney disease, stage 3 (moderate); B95.1 Streptococcus, group B, as the cause of diseases classified elsewhere; R52 Pain, unspecified; Z88.2 Allergy status to sulfonamides; Z88.1 Allergy status to other antibiotic agents; Z88.8 Allergy status to other drugs, medicaments and biological substances; Z88.4 Allergy status to anesthetic agent; Z86.711 Personal history of pulmonary embolism; Z86.718 Personal history of other venous thrombosis and embolism; Z28.21 Immunization not carried out because of patient refusal; Z90.710 Acquired absence of both cervix and uterus; Z87.891 Personal history of nicotine dependence; Z79.82 Long term (current) use of aspirin; Z79.899 Other long term (current) drug therapy
CPT/HCPCS: 36415; 70450; 80048; 80053; 81003; 81015; 82607; 83735; 84443; 85025; 85049; 85060; 85652; 86038; 86140; 87077; 87086; 87186; 99285; A9270-GY; J0696; J1650; J3475

== ENCOUNTER 2020-01-12 19:11 | Emergency (ER) | payer MEDICARE, MEDICAID, OTHER ==
--- NOTE | 2020-01-12 19:48 | ED ---
Neurological HPI - HPI Summary HPI Summary: This pt is a 59 Y/O F presenting to [facility] by EMS with a CC of increased weakness that began at 1829 this date. She states that she had a stroke 20 years ago which caused slurred speech and R sided weakness. Per EMS the pt had more weakness and was unable to bear any weight on her right side and was unable to walk. Her mother told EMS that the pt had a R sided facial droop. The pt also complains of feeling feverish at home. Currently she states that her R arm is hurting and rates the pain a 10/10 in severity. On scene the pt was shaking uncontrollably. She denies any fevers, chills, cough, headaches, N/V, SOB, and CP. She has no aggravating or alleviating factors. She also has a PMHx of HTN, hypercholesterolemia, and chronic renal failure. - History of Current Complaint Chief Complaint: EDWeakness Stated Complaint: POS CODE PALAFOX PER EMS Time Seen by Provider: 01/12/20 19:20 Last Known Well Date: 182901/12/2020 Hx Obtained From: Patient, Family/Manager Reporting - mother, EMS Onset/Duration: Sudden Onset, Still Present Timing: Constant Pain Intensity: 10 Pain Scale Used: 0-10 Numeric Aggravating: Nothing Alleviating: Nothing Associated Signs and Symptoms: Positive: Negative - chills, headaches, coughs, Weakness - R sided, Pain - R arm. Negative: Nausea/Vomiting, Fever, Chest Pain , Shortness of Breath TPA Considered: No - Pt's case ws reviwed at the hospital. presents no stroke like symptoms - Additional Pertinent History Primary Care Physician: FLORA - Allergy/Home Medications Allergies/Adverse Reactions: Allergies Allergy/AdvReac Type Severity Reaction Status Date / Time fentanyl Allergy rash, Verified 12/21/19 06:45 hives, itchy Sulfa (Sulfonamide Allergy Facial Verified 12/21/19 06:45 Antibiotics) Redness/Flushing baclofen AdvReac Intermediate Altered Verified 12/21/19 06:45 Mental Status nitrofurantoin AdvReac Intermediate Leukopenia/ Verified 12/21/19 06:45 neutropenia Home Medications: Home Medications PHENobarbital TAB(*) 64.8 mg PO BID 09/07/13 [History Confirmed 01/12/20] Hydroxychloroquine TAB* [Plaquenil TAB*] 200 mg PO BID WITH MEALS tab 04/03/17 [Rx Confirmed 01/12/20] Acetaminophen TAB* [Tylenol TAB*] 650 mg PO Q6H PRN #90 tab MDD 4 08/14/18 [Rx Confirmed 01/12/20] Aspirin EC TAB* [Ecotrin EC TAB*] 325 mg PO QAM 07/12/19 [History Confirmed ] Calcium Carbonate/Vitamin D3 [Calcium 600-Vit D3 800 Caplet] 1 tab.chew PO BID 08/19/19 [History Confirmed 01/12/20] Gabapentin TAB(NF) [Neurontin 600 mg TAB(NF)] 600 mg PO BID 08/19/19 [History Confirmed 01/12/20] Nebivolol TAB (NF) [Bystolic TAB (NF)] 5 mg PO DAILY 08/19/19 [History Confirmed 01/12/20] Rosuvastatin (NF) [Crestor (NF)] 5 mg PO MOWEFR 08/19/19 [History Confirmed ] amLODIPine TAB* [Norvasc 5 mg TAB*] 10 mg PO DAILY 08/19/19 [History Confirmed 01/12/20] oxyCODONE/Acetamin 5/325 MG* [Percocet 5/325 TAB*] 1 tab PO Q6H PRN 08/19/19 [ History Confirmed 01/12/20] Cyanocobalamin TAB* [Vitamin B12 TAB*] 1,000 mcg PO DAILY #90 tab 12/29/19 [Rx Confirmed 01/12/20] DULoxetine DR FLOWERS* [Cymbalta CAP*] 30 mg PO DAILY #90 12/29/19 [Rx Confirmed 01/12/20] Folic Acid TAB* [Folvite TAB*] 1 mg PO DAILY #90 tab 12/29/19 [Rx Confirmed ] Losartan TAB* [Cozaar TAB*] 50 mg PO DAILY #90 tab 12/29/19 [Rx Confirmed ] tiZANidine TAB* [Zanaflex TAB*] 2 mg PO Q8H PRN #90 tab 12/29/19 [Rx Confirmed 01/12/20] PMH/Surg Hx/FS Hx/Imm Hx Previously Healthy: Yes Endocrine/Hematology History: Reports: Hx Anticoagulant Therapy, Hx Systemic Lupus Erythematosus, Hx Thyroid Disease - THYROIDECTOMY, Hx Anemia - HISTORY Denies: Hx Bone Marrow Disease, Hx Diabetes, Hx Sickle Cell Disease Cardiovascular History: Reports: Hx Angina, Hx Deep Vein Thrombosis, Hx Hypercholesterolemia - unkown, Hx Hypertension, Hx Syncope, Other Cardiovascular Problems/Disorders - STROKE Denies: Hx Congestive Heart Failure, Hx Myocardial Infarction, Hx Pacemaker/ ICD, Hx Rheumatic Fever, Hx Valvular Heart Disease Respiratory History: Reports: Hx Pulmonary Embolism Denies: Hx Asthma, Hx Chronic Obstructive Pulmonary Disease (COPD), Hx Sleep Apnea, Other Respiratory Problems/Disorders GI History: Reports: Hx Gastroesophageal Reflux Disease, Hx Hiatal Hernia, Hx Irritable Bowel Denies: Hx Jaundice History: Reports: Hx Chronic Renal Failure - stage 2, Hx Kidney Infection, Other Problems/Disorders - UTI, vag abscess. SEES DR. Lozano ABOUT KIDNEYS Denies: Hx Dialysis, Hx Renal Disease Musculoskeletal History: Reports: Hx Arthritis, Hx Back Problems, Hx Orthopedic Injury, Other Musculoskeletal History - osteopenia, r hip pain x 1 year, l hip hemiarthroplasty Denies: Hx Tendonitis Sensory History: Reports: Hx Cataracts, Hx Contacts or Glasses - GLASSES SOMETIMES, Hx Deafness - [place] in right ear, Hx Hearing Problem - right hear clogged, Other Sensory Impairments - right hemiparesis secondary to CVA Hx Denies: Hx Glaucoma, Hx Hearing Aid Opthamlomology History: Reports: Hx Cataracts, Hx Contacts or Glasses - GLASSES SOMETIMES, Other Sensory Impairments - right hemiparesis secondary to CVA Hx Denies: Hx Glaucoma Neurological History: Reports: Hx CVA - with right hemiplegia , Hx Headaches, Hx Migraine, Hx Seizures, Hx Transient Ischemic Attacks (TIA), Other Neuro Impairments/Disorders - LUPUS Denies: Hx Dementia, Hx Nerve Disease Psychiatric History: Reports: Hx Anxiety, Hx Depression Denies: Hx Panic Disorder - Cancer History Hx Chemotherapy: No Hx Radiation Therapy: No - Surgical History Surgical History: Yes Surgery Procedure, Year, and Place: BILAT HIP REPLACEMENT;. HYSTERECTOMY;. OOPHERECTOMY;. VAGINAL ABSCESS I&D. BREAST SURGERY Hx Anesthesia Reactions: No - Immunization History Date of Tetanus Vaccine: unk Date of Influenza Vaccine: unk Immunizations Up to Date: Yes Infectious Disease History: No Infectious Disease History: Reports: Hx of Known/Suspected MRSA, Hx Shingles, History Other Infectious Disease - herpes Denies: Hx Clostridium Difficile, Hx Hepatitis, Hx Tuberculosis, Hx Known/ Suspected VRE, Hx Known/Suspected VRSA, Traveled Outside the [place] in Last 30 Days - Family History Known Family History: Positive: Cardiac Disease, Hypertension, Diabetes, Non- Contributory - Social History Occupation: Disabled Lives: With Family Alcohol Use: None Hx Substance Use: No Substance Use Type: Reports: None Hx Tobacco Use: No Smoking Status (MU): Former Smoker Amount Used/How Often: only smoked for weeks Have You Smoked in the Last Year: No Review of Systems Negative: Fever, Chills Negative: Chest Pain Negative: Shortness Of Breath, Cough Negative: Vomiting, Nausea Positive: Other - R arm pain Positive: Weakness - R sided. Negative: Headache All Other Systems Reviewed And Are Negative: Yes Physical Exam - Summary Physical Exam Summary: Appearance: Well-appearing, Well-nourished, female, lying in bed comfortably Skin: Warm, dry, no obvious rash Eyes: sclera anicteric, no conjunctival pallor ENT: mucous membranes moist, pharynx appears normal Neck: Supple, nontender Respiratory: Clear to auscultation, no signs of respiratory distress Cardiovascular: Normal S1, S2. No murmurs. Normal distal pulses in tibial and radial bilaterally. Abdomen: Soft, nontender, normal active bowel sounds present Musculoskeletal: Normal, Strength/ROM Intact, Motor function in all 4 extremities is normal and symmetric. There is no rigidity or tremor noted. Neurological: A&Ox3, awake and alert, mentation is normal, speech is soft and appropriate without dysphasia or aphasia, no bulbar sounds noted, Level of consciousness nml. The patient is alert and oriented. Cranial nerves are grossly intact. Gaze is conjugate and without nystagmus. Peripheral vision is intact to confrontation. There are no gross sensory abnormalities to light touch. There is no truncal or fine motor ataxia. Gait is normal. L arm and leg have normal strength and are able to hold themselves up against gravity. R arm is stuck in a contracted motion. Psychiatric: affect is normal, does not appear anxious or depressed NIH: 2, see associated section for more information GCS: 15 Triage Information Reviewed: Yes Vital Signs On Initial Exam: Initial Vitals Temp Pulse Resp BP Pulse Ox 99.8 F 77 18 145/88 98 01/12/20 19:23 01/12/20 19:23 01/12/20 19:23 01/12/20 19:23 01/12/20 19:23 Vital Signs Reviewed: Yes - [place] Coma Scale Best Eye Response: 4 - Spontaneous Best Motor Response: 6 - Obeys Commands Best Verbal Response: 5 - Oriented Coma Scale Total: 15 Procedures - Sedation Patient Received Moderate/Deep Sedation with Procedure: No Diagnostics - Vital Signs Vital Signs Temp Pulse Resp BP Pulse Ox 01/12/20 19:23 99.8 F 77 18 145/88 98 - Laboratory Result Diagrams: 01/12/20 19:55 01/12/20 19:55 Lab Statement: Any lab studies that have been ordered have been reviewed, and results considered in the medical decision making process. NIH Scale - NIH Scale Level of Consciousness: Alert/Keenly Responsive Ask Patient the Month and His/Her Age: Both Correct Ask Pt to Open/Close Eyes and Time Cycle Operator/Release Non-Paretic Hand: Both Correctly Best Gaze (Only Horizontal Eye Movement): Normal Visual Field Testing: No Visual Loss Facial Paresis-Pt to Smile & Close Eyes or Grimace Symmetry: Normal/Symmetrical Motor Function - Right Arm: Effort Against [place] Motor Function - Left Arm: No Drift-Holds 10 Seconds Motor Function - Right Leg: No Drift-Holds 10 Seconds Motor Function - Left Leg: No Drift-Holds 10 Seconds Limb Ataxia-Must be out of Proportion to Weakness Present: Absent Sensory (Use Pinprick to Test Arms/Legs/Trunk/Face): Normal Best Language (Describe Picture, Name Items): No Aphasia Dysarthria (Read Several Words): Normal Extinction and Inattention: No Abnormality Total Score: 2 Re-Evaluation - Re-Evaluation First Eval Re-Evaluation Time: 19:12 Change: Unchanged Comment: Pt was evaluated which showed no need to deem the pt as a code palafox. A more comprehensive PE will be taken once the pt is in her room. NIH on arrival is a 2. Second Eval Re-Evaluation Time: 22:55 Change: Improved Comment: Pt states that she is feeling much better and is agreeable to discharge plans. Course/Dx - Course Course Of Treatment: This pt is a 59 Y/O F presenting to [facility] by EMS with a CC of increased weakness that began at 1830 this date. She states that she had a stroke 20 years ago which caused slurred speech and R sided weakness. Per EMS the pt had more weakness and was unable to bear any weight on her right side and was unable to walk. Her mother told EMS that the pt had a R sided facial droop. The pt also complains of feeling feverish at home. Currently she states that her R arm is hurting and rates the pain a 10/10 in severity. On scene the pt was shaking uncontrollably. Her PE found A&Ox3, awake and alert, mentation is normal, speech is soft and appropriate without dysphasia or aphasia, no bulbar sounds noted, Level of consciousness nml. The patient is alert and oriented. Cranial nerves are grossly intact. Gaze is conjugate and without nystagmus. Peripheral vision is intact to confrontation. There are no gross sensory abnormalities to light touch. There is no truncal or fine motor ataxia. Gait is normal. L arm and leg have normal strength and are able to hold themselves up against gravity. R arm is stuck in a contracted motion. Her NIH score is a 2 due to her R sided weakness which showed effort against gravity. Her GCS is 15. She does not meet stroke criteria and will not be called a code palafox. She has abnormalities in her urine results with protein, asorbic acid, leukocyte esterase, and squamous epith cells. Pt was given toradol during her ED course. She will be discharged home with a Dx of R arm and R leg pain. - Diagnoses Provider Diagnoses: Right arm pain, Right leg pain Discharge ED - Sign-Out/Discharge Documenting (check all that apply): Patient Departure - discharge - Discharge Plan Condition: Good Disposition: HOME Referrals: Nabila Barrera MD [Primary Care Provider] - Additional Instructions: We did not find any worrisome problems on the tests we ran today, everything looks stable. Rest at home through the weekend and check in with your regular doctor for a followup next week. - Attestation Statements Document Initiated by Scribe: Yes Documenting Scribe: Cabrera Kent Provider For Whom Scribe is Documenting (Include Credential): Abdirizak Sheppard MD Scribe Attestation: Cabrera Emerson, scribed for Abdirizak Sheppard MD on 01/12/20 at 2255. Status of Scribe Document: Ready
[2020-01-12 20:07] LABS: ABS Eosinophils 0.1 10^3/ul (0-0.6); ABS Lymphocytes 1.2 10^3/ul (1.0-4.8); ABS Monocytes 0.3 10^3/ul (0-0.8); ABS Neutrophils 1.6 10^3/ul (1.5-7.7); Eosinophil % 2.3 %; Hematocrit 29 % (35-47); Hemoglobin 9.3 g/dL (12.0-16.0); Lymphocyte % 36.7 %; Mean Corpuscular HGB Conc 33 g/dL (31-36); Mean Corpuscular Hemoglobin 28 pg (27-31); Mean Corpuscular Volume 85 fL (80-97); Mean Platelet Volume 7.1 fL (7.4-10.4); Nucleated Red Blood Cells % 0.1; Platelet Count 217 10^3/uL (150-450); Red Blood Count 3.35 10^6 /uL (3.70-4.87); Red Cell Distribution Width 14 % (10-15); White Blood Count 3.2 10^3/uL (3.5-10.8)
[2020-01-12 20:23] LABS: Albumin 3.9 g/dL (3.2-5.2); Albumin/Globulin Ratio 1.1 (1-3); BUN/Creatinine Ratio 13.9 (8-20); EGFR African American 42.7 (>60); EGFR Non-African American 35.3 (>60); Globulin 3.4 g/dL (2-4); Total Bilirubin 0.2 mg/dL (0.2-1.0); Total Protein 7.3 g/dL (6.4-8.9)
[2020-01-12 20:24] LABS: Urine Appearance Clear; Urine Bilirubin Negative (Negative); Urine Blood Negative (Negative); Urine Color Straw; Urine Glucose Negative (Negative); Urine Ketones Negative (Negative); Urine Nitrite Negative (Negative); Urine Protein 2+(100 mg/dL) (Negative); Urine Urobilinogen Negative (Negative)
[2020-01-12 20:25] LABS: Urine Bacteria Absent (Absent); Urine Red Blood Cell Trace(0-2/hpf) (Absent); Urine Squamous Epithelial Cell Present (Absent); Urine White Blood Cell Trace(0-5/hpf) (Absent)
--- OUTSIDE RECORDS SUMMARY | 2020-01-12 20:26 | XMS REPORT | Continuity of Care Document ---
:1960 External Reference #:[id number] Author Name Kimmie Ayers NP (transmitted by agent of provider Jumana Moreno) Address [address] [place] [address] Care Team Providers Name Role Phone Nabila Barrera MD - Internal Care Team Information Heat Engineering Teacher Medicine Jamaal Wynn MD - Internal Medicine Care Team Information Heat Engineering Teacher Mark Thompson MD - Dermatology Care Team Information Heat Engineering Teacher [phone] Cisco Mcfarland - Nurse Care Team Information Heat Engineering Teacher [phone] Practitioner Alonzo Lebron MD - Rheumatology Care Team Information Heat Engineering Teacher Problems Active Problems Provider Date Systemic lupus erythematosus Nabila Barrera M.D. Onset: 05/09/2012 Medications Mixer Pigment (Current) Use Encounter Emile Hawkins M.D. Onset: [...] Note: phenobarb level 26.27 Aug 2017; in [facility] database [address] García most [...] Medications SIG Qnty Indications Ordering Date Provider Bystolic 1 by mouth Jennifer Goran, 01/05/2020 5mg Tablets every N.P. day(Changed from 10 mg in hospital) Cranberry Concentrate one po daily 30caps Jennifer Varn, 01/05/2020 500mg N.P. Capsules Triamcinolone Acetonide apply twice a 30gm R21 Jennifer Zimmer, 10/08/2019 0.1% day until N.P. Cream clear Aspirin 1 by mouth 28tabs Other Ordering 06/07/[address] every day Provider Hydroxychloroquine Sulfate take 1 tablet 180tabs Z79.899 Cisco Mcfarland, 200mg by mouth RESTORATION TECHNICIAN Tablets twice a day M32.14 M32.9 Rosuvastatin Calcium 1 tab by mouth 45tabs Niurka Gonzalez, DAISHA 01/19/2019 5mg every other day Tablets at bedtime Amlodipine Besylate Take 1 Tablet By 90tabs I10 Nabila Barrera, 09/16/2018 10mg Mouth Every Day M.D. Tablets Calcium 500+D3 1 tab by mouth 180tabs M85.89 Cisco Mcfarland, RESTORATION TECHNICIAN 12/18/2017 twice a day [id number] Tablets Phenobarbital 1 tab by mouth 60tabs Nereida France, 05/09/2012 64.8mg twice a day M.D. Tablets Losartan Potassium 1 by mouth every Unknown 50mg day Tablets Tizanidine HCL 1 cap by mouth Unknown 2mg Capsules every 8 hours as needed for muscle spasms Folic Acid Xtra 1 mg daily Unknown Tablets GNP Vitamin B-12 TR 1 by mouth every Unknown 1000mcg day Tablets ER Acetaminophen ER 1 by mouth twice Unknown 650mg a day as needed Tablets ER Gabapentin take 1 tablet by 180tabs Christopher Dee, DAISHA 600mg Tablets mouth two times daily History Medications Bystolic 1 by mouth 30tabs Jennifer Zimmer, 12/21/2019 - 10mg Tablets every day N.P. 01/05/2020 Metamucil once a day 60caps K59.03 Nabila Barrera, 08/26/2019 - 0.52gm Capsules M.D. 10/07/2019 Ciprofloxacin HCL Take 1 Tablet Unknown 08/22/2019 - 500mg By Mouth Two 10/07/2019 Tablets Times Daily For 3 Days Immunizations CPT Code Status Date Vaccine Reaction Lot # [id number] Given 08/26/2019 Influenza Virus Vaccine, [id number] Quadrivalent ([id number]), Derived From Cell 52656 Given 07/15/2019 Pneumococcal Conjugate Vaccine [id number] Valent For Intramuscular Use 97376 Given 08/27/2018 Influenza Virus Vaccine, Pt. tolerated well. [id number] Quadrivalent, Split, Preservative Free 50849 Given 07/01/2018 Pneumonia Vaccine [id number] 54126 Given 07/17/2017 Influenza Virus Vaccine, Quadrivalent, Split, Preservative Free 86834 Given 07/15/2016 Influenza Virus Vaccine, [id number] Quadrivalent, Split, Preservative Free 20467 Given 08/03/2015 Influenza Virus Vaccine, No reaction noted [id number] Quadrivalent, Split, Preservative Free 83562 Given 06/05/2015 Tdap - Tetanus/Diptheria/Acellular Pertussis 65850 Given 07/21/2014 Influenza Virus Vaccine, [id number] Quadrivalent, Split, Preservative Free 48080 Refused 08/12/2013 Tdap - Tetanus/Diptheria/Acellular Pertussis [id number] Refused 08/12/2013 Flu Vaccine Split Virus Preservative [...] Date Facility Test Result H/L Range Note Comp Metabolic 12/21/2019 [facility] Sodium 138 mmol/L Normal 135-145 Panel [address] [place] [address] [phone] Potassium 4.2 mmol/L Normal 3.5-5.0 Chloride 104 mmol/L Normal 101-111 Co2 Carbon Dioxide 24 mmol/L Normal 22-32 Anion Gap 10 mmol/L Normal 2-11 Calcium 9.0 mg/dL Normal 8.6-10.3 Albumin 3.9 g/dL Normal 3.2-5.2 Total Bilirubin 0.20 mg/dL Normal 0.2-1.0 Glucose 74 mg/dL Normal 70-100 Blood Urea Nitrogen 31 mg/dL High 6-24 Creatinine 1.90 mg/dL High 0.51-0.95 BUN/Creatinine Ratio 16.3 Normal 8-20 Total Protein 7.6 g/dL Normal 6.4-8.9 Globulin 3.7 g/dL Normal 2-4 Albumin/Globulin Ratio 1.1 Normal 1-3 Alkaline Phosphatase 47 U/L Normal 34-104 Alt 13 U/L Normal 7-52 Ast 21 U/L Normal 13-39 Egfr Non- 27.1 >60 Egfr 32.7 >60 1 CBC Auto 12/21/2019 [facility] White Blood 3.8 10^3/uL Normal 3.5-10.[address] [place] [address] [phone] Red Blood Count 3.49 10^6/uL Low 3.70-4.87 Hemoglobin 10.0 g/dL Low 12.0-16.0 Hematocrit 30 % Low 35-47 Mean Corpuscular Volume 86 fL Normal 80-97 Mean Corpuscular Hemoglobin 29 pg Normal 27-31 Mean Corpuscular HGB Conc 33 g/dL Normal 31-36 Red Cell Distribution Width 15 % Normal 10-15 Platelet Count 153 10^3/uL Normal 150-450 2 Mean Platelet Volume 7.8 fL Normal 7.4-10.4 Abs Neutrophils 1.5 10^3/uL Normal 1.5-7.7 Abs Lymphocytes 1.9 10^3/uL Normal 1.0-4.8 Abs Monocytes 0.3 10^3/uL Normal 0-0.8 Abs Eosinophils 0.1 10^3/uL Normal 0-0.6 Abs Basophils 0.0 10^3/uL Normal 0-0.2 Abs Nucleated RBC 0.0 10^3/uL Granulocyte % 38.8 % Lymphocyte % 49.5 % Monocyte % 7.5 % Eosinophil % 3.3 % Basophil % 0.9 % Nucleated Red Blood Cells % 0.1 Urinalysis Profile 12/21/2019 [facility] Urine Color Yellow [address] [place] [address] [phone] Urine Appearance Cloudy Urine Specific [place] 1.010 Normal 1.010-1.030 Urine pH 7.0 Normal 5-9 Urine Urobilinogen Negative Negative Urine Ketones Negative Negative Urine Protein 1+(30 mg/dL) Abnormal Negative Urine Leukocytes 3+ Abnormal Negative Urine Blood Negative Negative * * Abnormal Negative 3 Urine Nitrite Negative Negative Urine Bilirubin Negative Negative Urine Glucose Negative Negative Urine White Blood Cell 3+(>20/hpf) Abnormal Absent Urine Red Blood Cell 2+(6-10/hpf) Abnormal Absent Urine Bacteria 1+ Abnormal Absent Urine Culture And 12/21/2019 [facility] Urine SEE RESULT [address] [place] [address] [phone] CBC Auto Diff 12/15/2019 [facility] White Blood 4.4 10^3/uL Normal 3.5-[address] Count 0.8 [place] [address] [phone] Red Blood Count 3.44 10^6/uL Low 3.70-4.87 [...] Blood Cells % 0.1 Comp Metabolic 12/15/2019 [facility] Sodium 136 mmol/L Normal 135-[address] [place] [address] [phone] Chloride 106 mmol/L Normal 101-111 Co2 Carbon [...] Egfr Non- 25.4 >60 Egfr 30.7 >60 5 Potassium 5.6 mmol/L High 3.5-5.0 Anion Gap 5 mmol/L Normal 2-11 CBC Auto 08/19/2019 [facility] White Blood 7.4 10^3/uL Normal 3.5-10.[address] [place] [address] [phone] Red Blood Count 3.55 10^6/uL Low 3.70-4.87 [...] Blood Cells % 0.0 Comp Metabolic 08/19/2019 [facility] Sodium 140 mmol/L Normal 135-[address] [place] [address] [phone] Chloride 107 mmol/L Normal 101-111 Co2 Carbon [...] Egfr Non- 36.4 >60 Egfr 44.0 >60 6 Potassium 4.2 mmol/L Normal 3.5-5.0 Anion Gap 6 mmol/L Normal 2-11 Ast 24 U/L Normal 13-39 Urinalysis Profile 08/19/2019 [facility] Urine Color Yellow [address] [place] [address] [phone] Urine Appearance Cloudy Urine Specific [place] 1.011 Normal 1.010-1.030 Urine pH 7.0 Normal [...] Present Abnormal Absent Urine Culture And 08/19/2019 [facility] Urine Culture SEE RESULT [address] [place] [address] [phone] 1 Because ethnic data is not always [...] 5 Kidney failure <15 (or dialysis) 2 Platelet count confirmed by estimate 3 *Ascorbic acid is present which may interfere with detection of blood. 4 SEE RESULT BELOW Name: THAIS RAO : [address]: Marko Raygoza MD Acct: [id number] Unit: [id number] AGE: 59 Location: [place] [address] Re12/21/19 SEX: F Status: [place] SPEC: [id number] GENET: 12/21/[address] [facility] [address]: Ti BRIONES REQ: [id number] RECD: 12/21/19 STATUS: MATTHEW MARTINEZ DR: Nabila Barrera MD _ SOURCE: URINE SPDESC: ORDERED: Urine Culture Procedure Result Reported Site Urine Culture Final 12/22/19- 1119 ML Organism 1 STREP GROUP B [place] Count >100,000 (Many) CFU/ML Organism 2 NORMAL PREMA [place] Count 10-25,000 (Moderate) CFU/ML Susceptibility testing of penicillins and other B-lactams approved by FDA for treatment of Streptococcus pyogenes (Group A Strep) and Streptococcus agalactiae (Group B Strep) is not necessary for clinical purposes and need not be done routinely, since as with vancomycin, resistant strains have not been recognized. (CLSI D182-D60;p.66) Positive isolates will be saved for one week. Please call the Microbiology Laboratory if further susceptibility testing is needed. * ML - Main Lab . END OF REPORT DEPARTMENT OF PATHOLOGY, [address] [place] [address] Edwin Chanel M.D. Director [facility] # [id number] 5 Because ethnic data is not always readily [...] 15-29 5 Kidney failure <15 (or dialysis) 6 Because ethnic data is not always readily [...] 15-29 5 Kidney failure <15 (or dialysis) 7 SEE RESULT BELOW Name: GUANAKOCALTHAIS : [address]: Magen Christensen MD Acct: [id number] Unit: [id number] AGE: 59 Location: ED Re08/19/19 SEX: F Status: DEP ER SPEC: [id number] GENET: 08/19/[address] [facility] [address]: Magen Christensen MD REQ: [id number] RECD: 08/19/19 STATUS: COMP MICHELLE DR: Nabila Barrera MD _ SOURCE: URINE SPDESC: ORDERED: Urine Culture Procedure Result Reported Site Urine Culture Final 08/21/19- 38 ML Organism 1 [facility] [place] Count 50-75,000 (Many) CFU/ML Organism 2 STREP GROUP B [place] Count 10-25,000 (Moderate) CFU/ML Susceptibility testing of penicillins and other B-lactams approved by FDA for treatment of Streptococcus pyogenes (Group A Strep) and Streptococcus agalactiae (Group B Strep) is not necessary for clinical purposes and need not be done routinely, since as with vancomycin, resistant strains have not been recognized. (CLSI O727-V01;p.66) Positive isolates will be saved for one week. Please call the Microbiology Laboratory if further susceptibility testing is needed. 1. [facility] M.I.[facility]. RX --------- ------ Cefazolin >=64 R Cefepime <=1 S Ceftriaxone <=1 S Ciprofloxacin <=0.25 S Gentamicin <=1 S Levofloxacin <=0.12 S Meropenem <=0.25 S Nitrofurantoin <=16 S Tetracycline <=1 S CONTINUED ON NEXT PAGE DEPARTMENT OF PATHOLOGY, [address] [place] [address] Edwin Chanel M.D. Director [facility] # [id number] Specimen: [id number] Collected: 08/19/19 Received: 08/19/19 (Continued) Procedure Result Reported Site Urine Culture Final (continued) 08/21/19- 937 1. [facility] (continued) M.I.C. RX --------- ------ Pipercillin/Tazobactam <=4 S Trimethoprim/Sulfamethoxazole <=20 S Amoxicillin/Clavulanic Acid R Aztreonam <=1 S Contact the Microbiology Department for any additional antibiotic reporting. * ML - Main Lab . END OF REPORT DEPARTMENT OF PATHOLOGY, [address] [place] [address] Edwin Chanel M.D. Director [facility] # [id number] Procedures Date Code Description Status 06/16/2019 003630157 Diabetic Retinal Eye Exam Completed 01/28/2019 765713487 Bone Mineral Density Test Completed 01/28/2019 56752573 Mammogram Completed 01/13/2018 39977931 Mammogram Completed 12/25/2017 390470020 Diabetic Retinal Eye Exam Completed 09/27/2016 89061344 Mammogram Completed 04/30/2016 036362059 Bone Mineral Density Test Completed 09/07/2015 33973858 Mammogram Completed 08/22/2014 61033331 Colonoscopy Completed 06/22/2014 32370813 Mammogram Completed 06/18/2013 23510600 Mammogram Completed 10/27/2009 04987115 Colonoscopy Completed Medical Devices Description No Information Available Encounters Type Date Location Provider Dx Diagnosis Office Visit 12/29/2019 [facility] Valerie R26.2 Difficulty in 9:09a [facility]oc[facility] [place] walking, not Hospitalists elsewhere classified D71 Functional disorders of polymorphonuclear neutrophils R52 Pain, unspecified M32.9 Systemic lupus erythematosus, unspecified Office Visit 12/28/2019 [facility] Valerie R26.2 Difficulty in 9:09a [facility]oc[facility] [place] walking, not Hospitalists elsewhere classified R52 Pain, unspecified N18.3 Chronic kidney disease, stage 3 (moderate) M32.9 Systemic lupus erythematosus, unspecified Office Visit 12/27/2019 9:08a [facility] Scott R26.2 Difficulty in [facility]oc[facility] [place], [place] walking, not Hospitalists elsewhere classified N18.3 Chronic kidney disease, stage 3 (moderate) R52 Pain, unspecified M32.9 Systemic lupus erythematosus, unspecified Office Visit 12/26/2019 9:05a [facility] Scott R26.2 Difficulty in [facility] [place], [place] walking, not Hospitalists elsewhere classified G40.909 Epilepsy, unsp, not intractable, without status epilepticus M32.9 Systemic lupus erythematosus, unspecified R52 Pain, unspecified Office Visit 12/25/2019 [facility] D71 Functional disorders 9:05a Assoc,pc Armen, SPLICING TECHNICIAN of polymorphonuclear Hospitalists neutrophils R26.2 Difficulty in walking, not elsewhere classified G40.909 Epilepsy, unsp, not intractable, without status epilepticus N18.3 Chronic kidney disease, stage 3 (moderate) Office Visit 12/24/2019 9:04a [facility] N39.0 Urinary tract Assoc,[facility] Armen, SPLICING TECHNICIAN infection, site Hospitalists not specified N18.3 Chronic kidney disease, stage 3 (moderate) M32.9 Systemic lupus erythematosus, unspecified G40.909 Epilepsy, unsp, not intractable, without status epilepticus Office Visit 12/22/2019 [facility] Jessica Manjarrez L89.152 Pressure ulcer 8:00a AT [facility] DAISHA Lopez of sacral region, stage 2 Office Visit 12/21/2019 [facility] Jina Sutton, R53.1 Weakness 8:54a Assoc,pc SPLICING TECHNICIAN Hospitalists N39.0 Urinary tract infection, site not specified I12.9 Hypertensive chronic kidney disease w stg 1-4/unsp chr kdny N18.3 Chronic kidney disease, stage 3 (moderate) M32.9 Systemic lupus erythematosus, unspecified Office Visit 10/08/2019 2:00p [facility] Internal Jennifer Zimmer, R21 Rash and other Medicine - N.P. nonspecific skin Ccmob eruption Office Visit 08/26/2019 10:30a [facility] Internal Nabila Barrera, N39.0 Urinary tract Medicine - M.D. 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 12/30/2019 G40.909 Epilepsy, unspecified, not ANALI Rowe intractable, without status epilepticus 12/29/2019 R26.2 Difficulty in walking, not elsewhere ANALI Rowe classified 12/29/2019 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 12/29/2019 R52 Pain, unspecified ANALI Rowe 12/29/2019 M32.9 Systemic lupus erythematosus, ANALI Rowe unspecified 12/28/2019 R26.2 Difficulty in walking, not elsewhere ANALI oRwe classified 12/28/2019 R52 Pain, unspecified ANALI Rowe 12/28/2019 N18.3 Chronic kidney disease, stage 3 ANALI Rowe (moderate) 12/28/2019 M32.9 Systemic lupus erythematosus, ANALI Rowe unspecified 12/27/2019 R26.2 Difficulty in walking, not elsewhere ANALI García classified 12/27/2019 N18.3 Chronic kidney disease, stage 3 ANALI García (moderate) 12/27/2019 R52 Pain, unspecified ANALI García 12/27/2019 M32.9 Systemic lupus erythematosus, Scott Perez PA unspecified 12/26/2019 R26.2 Difficulty in walking, not elsewhere ANALI García classified 12/26/2019 G40.909 Epilepsy, unspecified, not ANALI García intractable, without status epilepticus 12/26/2019 M32.9 Systemic lupus erythematosus, Scott Perez PA unspecified 12/26/2019 R52 Pain, unspecified ANALI García 12/25/2019 D71 Functional disorders of Kimmie Ayers, SPLICING TECHNICIAN polymorphonuclear neutrophils 12/25/2019 R26.2 Difficulty in walking, not elsewhere Kimmie Shortle, SPLICING TECHNICIAN classified 12/25/2019 G40.909 Epilepsy, unspecified, not Kimmie Shortle, SPLICING TECHNICIAN intractable, without status epilepticus 12/25/2019 N18.3 Chronic kidney disease, stage 3 Kimmie Kaplanle, SPLICING TECHNICIAN (moderate) 12/24/2019 N39.0 Urinary tract infection, site not Kimmie Ayers, SPLICING TECHNICIAN specified 12/24/2019 N18.3 Chronic kidney disease, stage 3 Kimmie Shortle, SPLICING TECHNICIAN (moderate) 12/24/2019 M32.9 Systemic lupus erythematosus, Kimmie Ayers, SPLICING TECHNICIAN unspecified 12/24/2019 G40.909 Epilepsy, unspecified, not Kimmie Shortle, SPLICING TECHNICIAN intractable, without status epilepticus 12/23/2019 N39.0 Urinary tract infection, site not ANALI García specified 12/23/2019 N18.3 Chronic kidney disease, stage 3 ANALI García (moderate) 12/23/2019 R52 Pain, unspecified ANALI García 12/23/2019 M32.9 Systemic lupus erythematosus, ANALI García unspecified 12/22/2019 N39.0 Urinary tract infection, site not ANALI García specified 12/22/2019 L89.152 Pressure ulcer of sacral region, Jessica Lopez NP stage 2 12/22/2019 R26.2 Difficulty in walking, not elsewhere ANALI García classified 12/22/2019 M32.9 Systemic lupus erythematosus, Scott Perez PA unspecified 12/22/2019 G40.909 Epilepsy, unspecified, not ANALI García intractable, without status epilepticus 12/21/2019 R53.1 Weakness Jina Lesley, SPLICING TECHNICIAN 12/21/2019 N39.0 Urinary tract infection, site not Jina Sutton SPLICING TECHNICIAN specified 12/21/2019 I12.9 Hypertensive chronic kidney disease Jina SuttonDAISHA with stage 1 through stage 4 chronic kidney disease, or unspecified chronic kidney disease 12/21/2019 N18.3 Chronic kidney disease, stage 3 Jina Sutton SPLICING TECHNICIAN (moderate) 12/21/2019 M32.9 Systemic lupus erythematosus, Jina Sutton, SPLICING TECHNICIAN unspecified 10/08/2019 R21 Rash and other nonspecific skin Jennifer Zimmer, N.P. eruption 08/26/2019 N39.0 Urinary tract infection, site not Nabila Barrera M.D. specified 08/26/2019 K64.8 Other hemorrhoids Nabila Barrera M.D. 08/26/2019 K59.03 Drug induced constipation Nabila Barrera M.D. 08/26/2019 M79.671 Pain in right foot Nabila Barrera M.D. 08/26/2019 Z23 Encounter for immunization Nabila Barrera M.D. 07/15/2019 Z00.00 Encounter for general adult medical Nabila Barrera M.D. examination without abnormal findings 07/15/2019 H25.23 Age-related cataract, morgagnian Nabila Barrera M.D. type, bilateral 07/15/2019 M32.9 Systemic lupus erythematosus, Nabila [...] M.D. 07/15/2019 R94.39 Abnormal result of other Nabila Barrera M.D. cardiovascular function study Plan of Treatment Future Appointment(s):01/14/2020 11:00 am - Jennifer Zimmer N.P. at [facility] Internal Medicine - [facility]10/08/2019 - Jennifer Zimmer N.P.R21 Rash and other nonspecific skin eruptionNew Medication:Triamcinolone Acetonide 0.1 % - apply twice a day until clearComments:For your rash I have sent a prescription to the pharmacy for Triamcinolone cream. Apply this to the affected areas until clear. If you do not get relief with this, mariama castle contact the office. You may need to see a salesperson flying squad. Functional Status Functional Condition Comment Date Status Standard walker is used to ambulate Active Quad cane is used with the left hand to ambulate Active Mental Status Description No Information Available Referrals Description No Information Available
--- OUTSIDE RECORDS SUMMARY | 2020-01-12 20:26 | XMS REPORT | Continuity of Care Document ---
:1960 External Reference #:[id number] Author Name ANALI García (transmitted by agent of provider Jumana Moreno) Address [address] [place] [address] Care Team Providers Name Role Phone Nabila Barrera MD - Internal Care Team Information Procurement Professional Medicine Jamaal Wynn MD - Internal Medicine Care Team Information Procurement Professional [phone] Mark Thompson MD - Dermatology Care Team Information Procurement Professional [phone] Cisco Mcfarland - Nurse Care Team Information Procurement Professional [phone] Practitioner Alonzo Lebron MD - Rheumatology Care Team Information Procurement Professional Problems Active Problems Provider Date Systemic lupus erythematosus Nabila Barrera M.D. 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 Onset: [...] Note: phenobarb level 26.27 Aug 2017; in [employer] database [address] García most [...] Date Provider Bystolic 1 by mouth Jennifer Zimmer, 01/05/2020 5mg Tablets every N.P. day(Changed from 10 mg in hospital) Cranberry Concentrate one po daily 30caps Jennifer Zimmer, 01/05/2020 500mg N.P. Capsules Triamcinolone Acetonide apply twice a 30gm R21 Jennifer Zimmer, 10/08/2019 0.1% day until N.P. Cream clear Aspirin 1 by mouth 28tabs Other Ordering 06/07/[address] every day Provider Hydroxychloroquine Sulfate take 1 tablet 180tabs Z79.899 Cisco Mcfarland, 200mg by mouth VARIETY PERFORMER Tablets twice a day M32.14 M32.9 Rosuvastatin Calcium 1 tab by mouth 45tabs Niurka Gonzalez, DAISHA 01/19/2019 5mg every other day Tablets at bedtime Amlodipine Besylate Take 1 Tablet By 90tabs I10 Nabila Barrera, 09/16/2018 10mg Mouth Every Day M.D. Tablets Calcium 500+D3 1 tab by mouth 180tabs M85.89 RADHA Maravilla 12/18/2017 twice a day [id number] Tablets Phenobarbital 1 tab by mouth 60tabs [...] Code Status Date Vaccine Reaction Lot # [id number] Given 08/26/2019 Influenza Virus Vaccine, [id number] Quadrivalent ([id number]), Derived From Cell 00176 Given 07/15/2019 Pneumococcal Conjugate Vaccine [id number] Valent For Intramuscular Use 79304 Given 08/27/2018 Influenza Virus Vaccine, Pt. tolerated well. [id number] Quadrivalent, Split, Preservative Free 80929 Given 07/01/2018 Pneumonia Vaccine [id number] 67900 Given 07/17/2017 Influenza Virus Vaccine, Quadrivalent, Split, Preservative Free 19989 Given 07/15/2016 Influenza Virus Vaccine, [id number] Quadrivalent, Split, Preservative Free 65433 Given 08/03/2015 Influenza Virus Vaccine, No reaction noted [id number] Quadrivalent, Split, Preservative Free 16548 Given 06/05/2015 Tdap - Tetanus/Diptheria/Acellular Pertussis 88187 Given 07/21/2014 Influenza Virus Vaccine, [id number] Quadrivalent, Split, Preservative Free 47949 Refused 08/12/2013 Tdap - Tetanus/Diptheria/Acellular Pertussis [id number] Refused 08/12/2013 Flu Vaccine Split Virus Preservative [...] Result H/L Range Note Comp Metabolic 12/21/2019 [facility] Sodium 138 mmol/L Normal 135-145 Panel [address] [place] [address] [phone] Potassium 4.2 mmol/L Normal 3.5-5.0 Chloride 104 [...] Egfr 32.7 >60 1 CBC Auto 12/21/2019 [facility] White Blood 3.8 10^3/uL Normal 3.5-10.[address] [place] [address] [phone] Red Blood Count 3.49 10^6/uL Low 3.70-4.87 [...] Blood Cells % 0.1 Urinalysis Profile 12/21/2019 [facility] Urine Color Yellow [address] [place] [address] [phone] Urine Appearance Cloudy Urine Specific Keenes 1.010 Normal 1.010-1.030 Urine pH 7.0 Normal [...] 1+ Abnormal Absent Urine Culture And 12/21/2019 [facility] Urine SEE RESULT [address] [place] [place] [address] [phone] CBC Auto Diff 12/15/2019 [facility] White Blood 4.4 10^3/uL Normal 3.5-[address] Count 0.8 [place] [address] [phone] Red Blood Count 3.44 10^6/uL Low 3.70-4.87 [...] Blood Cells % 0.1 Comp Metabolic 12/15/2019 [facility] Sodium 136 mmol/L Normal 135-[address] [place] [address] [phone] Chloride 106 mmol/L Normal 101-111 Co2 Carbon [...] 5 mmol/L Normal 2-11 CBC Auto 08/19/2019 [facility] White Blood 7.4 10^3/uL Normal 3.5-10.[address] [place] [address] [phone] Red Blood Count 3.55 10^6/uL Low 3.70-4.87 [...] Blood Cells % 0.0 Comp Metabolic 08/19/2019 [facility] Sodium 140 mmol/L Normal 135-[address] [place] [address] [phone] Chloride 107 mmol/L Normal 101-111 Co2 Carbon [...] 24 U/L Normal 13-39 Urinalysis Profile 08/19/2019 [facility] Urine Color Yellow [address] [place] [address] [phone] Urine Appearance Cloudy Urine Specific Keenes 1.011 Normal 1.010-1.030 Urine pH 7.0 Normal [...] Present Abnormal Absent Urine Culture And 08/19/2019 [facility] Urine Culture SEE RESULT [address] [place] [address] [phone] 1 Because ethnic data is not always [...] [address]: Marko Raygoza MD Acct: [id number] Unit: [id number] AGE: 59 Location: [place] [address] Re12/21/19 SEX: F Status: ADM Dorothy SPEC: [id number] GENET: 12/21/19-[address] [facility] [address]: Ti BRIONES REQ: [id number] RECD: 12/21/19 STATUS: MATTHEW MARTINEZ DR: Nabila Barrera MD _ [facility]: Urine [facility] Procedure Result Reported Site Urine Culture Final 12/22/19- 1119 ML Organism 1 STREP GROUP B Dillard Count >100,000 (Many) CFU/ML Organism 2 NORMAL PREMA Dillard Count 10-25,000 (Moderate) CFU/ML Susceptibility testing of penicillins and other B-lactams approved by FDA for treatment of Streptococcus pyogenes (Group A Strep) and Streptococcus agalactiae (Group B Strep) is not necessary for clinical purposes and need not be done routinely, since as with vancomycin, resistant strains have not been recognized. (CLSI D937-X48;p.66) Positive isolates will be saved for one week. Please call the Microbiology Laboratory if further susceptibility testing is needed. * ML - Main Lab . END OF REPORT DEPARTMENT OF PATHOLOGY, [address] [place] [address] Edwin Chanel M.D. Director [facility] # [id number] 5 Because ethnic data is not always [...] [address]: Magen Christensen MD Acct: [id number] Unit: [id number] AGE: 59 Location: ED Re08/19/19 SEX: F Status: DEP ER SPEC: [id number] GENET: 08/19/[address] [facility] [address]: Magen Christensen MD REQ: [id number] RECD: 08/19/19 STATUS: MATTHEW WATSON DR: Nabila Barrera MD _ SOURCE: URINE SPDESC: ORDERED: Urine Culture Procedure Result Reported Site Urine Culture Final 08/21/19937 ML Organism 1 [facility] Dillard Count 50-75,000 (Many) CFU/ML Organism 2 STREP GROUP B Dillard Count 10-25,000 (Moderate) CFU/ML Susceptibility testing of penicillins and other B-lactams approved by FDA for treatment of Streptococcus pyogenes (Group A Strep) and Streptococcus agalactiae (Group B Strep) is not necessary for clinical purposes and need not be done routinely, since as with vancomycin, resistant strains have not been recognized. (CLSI U396-M87;p.66) Positive isolates will be saved for one week. Please call the Microbiology Laboratory if further susceptibility testing is needed. 1. [facility] RX --------- ------ Cefazolin >=64 R Cefepime <=1 S Ceftriaxone <=1 S Ciprofloxacin <=0.25 S Gentamicin <=1 S Levofloxacin <=0.12 S Meropenem <=0.25 S Nitrofurantoin <=16 S Tetracycline <=1 S CONTINUED ON NEXT PAGE DEPARTMENT OF PATHOLOGY, [address] [place] [address] Edwin Chanel M.D. Director [facility] # [id number] Specimen: [id number] Collected: 08/19/19 Received: 08/19/19 (Continued) Procedure Result Reported Site Urine Culture Final (continued) 08/21/19- 937 1. [facility] (continued) M.I.C. RX --------- ------ Pipercillin/Tazobactam <=4 S Trimethoprim/Sulfamethoxazole <=20 S Amoxicillin/Clavulanic Acid R Aztreonam <=1 S Contact the Microbiology Department for any additional antibiotic reporting. * ML - Main Lab . END OF REPORT DEPARTMENT OF PATHOLOGY, [address] [place] [address] Edwin Chanel M.D. Director [facility] # [id number] Procedures Date Code Description Status 06/16/2019 506178097 Diabetic Retinal Eye Exam Completed 01/28/2019 [id number] Bone Mineral Density Test Completed 01/28/2019 [id number] Mammogram Completed 01/13/2018 82804421 Mammogram Completed 12/25/2017 467283557 Diabetic Retinal Eye Exam Completed 09/27/2016 [id number] Mammogram Completed 04/30/2016 [id number] Bone Mineral Density Test Completed 09/07/2015 16114473 Mammogram Completed 08/22/2014 [id number] Colonoscopy Completed 06/22/2014 [id number] Mammogram Completed 06/18/2013 41274147 Mammogram Completed 10/27/2009 79512860 Colonoscopy Completed Medical Devices Description No Information Available Encounters Type Date Location Provider Dx Diagnosis Office Visit 12/29/2019 [facility] R26.2 Difficulty in 9:09a [facility] [place] walking, not Hospitalists elsewhere classified D71 Functional disorders of polymorphonuclear neutrophils R52 Pain, unspecified M32.9 Systemic lupus erythematosus, unspecified Office Visit 12/28/2019 [facility] Valerie R26.2 Difficulty in 9:09a [facility] [place] walking, not Hospitalists elsewhere classified R52 Pain, unspecified N18.3 Chronic kidney disease, stage 3 (moderate) M32.9 Systemic lupus erythematosus, unspecified Office Visit 12/27/2019 9:08a [facility] Scott R26.2 Difficulty in [facility]oc[facility] [place], [place] walking, not Hospitalists elsewhere classified N18.3 Chronic kidney disease, stage 3 (moderate) R52 Pain, unspecified M32.9 Systemic lupus erythematosus, unspecified Office Visit 12/26/2019 9:05a [facility] Scott R26.2 Difficulty in [facility]oc[facility] [place], [place] walking, not Hospitalists elsewhere classified G40.909 Epilepsy, unsp, not intractable, without status epilepticus M32.9 Systemic lupus erythematosus, unspecified R52 Pain, unspecified Office Visit 12/25/2019 [facility] D71 Functional disorders 9:05a Assoc,pc Armen, CERTIFIED PHARMACY TECHNICIAN of polymorphonuclear Hospitalists neutrophils R26.2 Difficulty in walking, not elsewhere classified G40.909 Epilepsy, unsp, not intractable, without status epilepticus N18.3 Chronic kidney disease, stage 3 (moderate) Office Visit 12/24/2019 9:04a [facility] N39.0 Urinary tract Assoc,[facility] Armen, CERTIFIED PHARMACY TECHNICIAN infection, site Hospitalists not specified N18.3 Chronic kidney disease, stage 3 (moderate) M32.9 Systemic lupus erythematosus, unspecified G40.909 Epilepsy, unsp, not intractable, without status epilepticus Office Visit 12/22/2019 [facility] Jessica Manjarrez L89.152 Pressure ulcer 8:00a [facility] DAISHA Lopez of sacral region, stage 2 Office Visit 12/21/2019 [facility] Jina Sutton, R53.1 Weakness 8:54a Assoc,pc CERTIFIED PHARMACY TECHNICIAN Hospitalists N39.0 Urinary tract infection, site not specified I12.9 Hypertensive chronic kidney disease w stg 1-4/unsp chr kdny N18.3 Chronic kidney disease, stage 3 (moderate) M32.9 Systemic lupus erythematosus, unspecified Office Visit 10/08/2019 2:00p [facility] Jennifer Zimmer, R21 Rash and other Medicine - N.P. nonspecific skin Ccmob eruption Office Visit 08/26/2019 10:30a [facility] Nabila Barrera, N39.0 Urinary tract Medicine [...] in walking, not elsewhere ANALI Rowe classified 12/28/2019 R52 Pain, unspecified ANALI Rowe [...] García classified 12/26/2019 G40.909 Epilepsy, unspecified, not Scott Perez PA intractable, without status epilepticus 12/26/2019 M32.9 Systemic lupus erythematosus, Scott Perez PA unspecified 12/26/2019 R52 Pain, unspecified Scott Perez PA 12/25/2019 D71 Functional disorders of Kimmie Ayers, CERTIFIED PHARMACY TECHNICIAN polymorphonuclear neutrophils 12/25/2019 R26.2 Difficulty in walking, not elsewhere Kimmie Shortle, CERTIFIED PHARMACY TECHNICIAN classified 12/25/2019 G40.909 Epilepsy, unspecified, not Kimmie Shortle, CERTIFIED PHARMACY TECHNICIAN intractable, without status epilepticus 12/25/2019 N18.3 Chronic kidney disease, stage 3 Kimmie Ayers, CERTIFIED PHARMACY TECHNICIAN (moderate) 12/24/2019 N39.0 Urinary tract infection, site not Kimmie Ayers, CERTIFIED PHARMACY TECHNICIAN specified 12/24/2019 N18.3 Chronic kidney disease, stage 3 Kimmie Shortle, CERTIFIED PHARMACY TECHNICIAN (moderate) 12/24/2019 M32.9 Systemic lupus erythematosus, Kimmie Ayers, CERTIFIED PHARMACY TECHNICIAN unspecified 12/24/2019 G40.909 Epilepsy, unspecified, not Kimmie Shortle, CERTIFIED PHARMACY TECHNICIAN intractable, without status epilepticus 12/23/2019 N39.0 Urinary tract infection, site not ANALI García specified 12/23/2019 N18.3 Chronic kidney disease, stage 3 ANALI García (moderate) 12/23/2019 R52 Pain, unspecified ANALI García 12/23/2019 M32.9 Systemic lupus erythematosus, Scott Perez PA unspecified 12/22/2019 N39.0 Urinary tract infection, site not ANALI García specified 12/22/2019 L89.152 Pressure ulcer of sacral region, Jessica Lopez NP stage 2 12/22/2019 R26.2 Difficulty in walking, not elsewhere ANALI García classified 12/22/2019 M32.9 Systemic lupus erythematosus, Scott Perez PA unspecified 12/22/2019 G40.909 Epilepsy, unspecified, not ANALI García intractable, without status epilepticus 12/21/2019 R53.1 Weakness Jina Sutton, CERTIFIED PHARMACY TECHNICIAN 12/21/2019 N39.0 Urinary tract infection, site not Jina Sutton CERTIFIED PHARMACY TECHNICIAN specified 12/21/2019 I12.9 Hypertensive chronic kidney disease Jina SuttonDAISHA with stage 1 through stage 4 chronic kidney disease, or unspecified chronic kidney disease 12/21/2019 N18.3 Chronic kidney disease, stage 3 Jina Sutton CERTIFIED PHARMACY TECHNICIAN (moderate) 12/21/2019 M32.9 Systemic lupus erythematosus, Jina Sutton, CERTIFIED PHARMACY TECHNICIAN unspecified 10/08/2019 R21 Rash and other [...] 11:00 am - Jennifer Zimmer N.P. at [facility] Medicine - [facility]10/08/2019 - Jennifer Zimmer N.P.R21 Rash and other nonspecific skin eruptionNew Medication:Triamcinolone Acetonide 0.1 % - apply twice a day until clearComments:For your rash I have sent a prescription to the pharmacy for Triamcinolone cream. Apply this to the affected areas until clear. If you do not get relief with this, mariama castle contact the office. You may need to see a crop consultant. Functional Status Functional Condition Comment Date Status Standard walker is used to ambulate Active Quad cane is used with the left hand to ambulate Active Mental Status Description No Information Available Referrals Description No Information Available
--- OUTSIDE RECORDS SUMMARY | 2020-01-12 20:26 | XMS REPORT | Continuity of Care Document ---
:1960 External Reference #:[id number] Author Name Jina Sutton NP (transmitted by agent of provider Jumana Moreno) Address [address] [place] [address] Care Team Providers Name Role Phone Nabila Barrera MD - Internal Care Team Information Electrolytic Etcher [phone] Medicine Jamaal Wynn MD - Internal Medicine Care Team Information Electrolytic Etcher [phone] Mark Thompson MD - Dermatology Care Team Information Electrolytic Etcher [phone] Cisco Mcfarland - Nurse Care Team Information Electrolytic Etcher [phone] Practitioner Alonzo Lebron MD - Rheumatology Care Team Information Electrolytic Etcher Problems Active Problems Provider Date Systemic lupus erythematosus Nabila Barrera M.D. Onset: 05/09/2012 Medications Date Pitter (Current) Use Encounter Emile Hawkins M.D. Onset: [...] Note: phenobarb level 26.27 Aug 2017; in [employer]NAGER [employer]LE[employer] database [address] García most [...] 180tabs Z79.899 Cisco Mcfarland, 200mg by mouth SAND CONDITIONER MACHINE Tablets twice a day M32.14 M32.9 Rosuvastatin Calcium 1 tab by mouth 45tabs Niurka Gonzalez, DAISHA 01/19/2019 5mg every other day Tablets at bedtime Amlodipine Besylate Take 1 Tablet By 90tabs I10 Nabila Barrera, 09/16/2018 10mg Mouth Every Day M.D. Tablets Calcium 500+D3 1 tab by mouth 180tabs M85.89 Cisco Mcfarland, SAND CONDITIONER MACHINE 12/18/2017 twice a day [id number] Tablets Phenobarbital 1 tab by mouth 60tabs [...] Code Status Date Vaccine Reaction Lot # [id number] Given 08/26/2019 Influenza Virus Vaccine, [id number] Quadrivalent ([id number]), Derived From Cell 32119 Given 07/15/2019 Pneumococcal Conjugate Vaccine [id number] Valent For Intramuscular Use 18224 Given 08/27/2018 Influenza Virus Vaccine, Pt. tolerated well. [id number] Quadrivalent, Split, Preservative Free 78284 Given 07/01/2018 Pneumonia Vaccine [id number] 45137 Given 07/17/2017 Influenza Virus Vaccine, Quadrivalent, Split, Preservative Free 45503 Given 07/15/2016 Influenza Virus Vaccine, [id number] Quadrivalent, Split, Preservative Free 47109 Given 08/03/2015 Influenza Virus Vaccine, No reaction noted [id number] Quadrivalent, Split, Preservative Free 44264 Given 06/05/2015 Tdap - Tetanus/Diptheria/Acellular Pertussis 78836 Given 07/21/2014 Influenza Virus Vaccine, [id number] Quadrivalent, Split, Preservative Free 87296 Refused 08/12/2013 Tdap - Tetanus/Diptheria/Acellular Pertussis 79117 Refused 08/12/2013 Flu Vaccine Split Virus Preservative [...] Result H/L Range Note Comp Metabolic 12/21/2019 [facility] Sodium 138 mmol/L Normal 135-145 Panel [address] [place] [address] [phone] Potassium 4.2 mmol/L Normal 3.5-5.0 Chloride 104 [...] Egfr 32.7 >60 1 CBC Auto 12/21/2019 [facility] White Blood 3.8 10^3/uL Normal 3.5-10.[address] [place] [address] [phone] Red Blood Count 3.49 10^6/uL Low 3.70-4.87 [...] Blood Cells % 0.1 Urinalysis Profile 12/21/2019 [facility] Urine Color Yellow [address] [place] [address] [phone] Urine Appearance Cloudy Urine Specific [place] 1.010 Normal 1.010-1.030 Urine pH 7.0 Normal [...] 1+ Abnormal Absent Urine Culture And 12/21/2019 [facility] Urine SEE RESULT [address] [place] [address] [phone] CBC Auto Diff 12/15/2019 [facility] White Blood 4.4 10^3/uL Normal 3.5-[address] Count 0.8 [place] [address] [phone] Red Blood Count 3.44 10^6/uL Low 3.70-4.87 [...] Blood Cells % 0.1 Comp Metabolic 12/15/2019 [facility] Sodium 136 mmol/L Normal 135-[address] [place] [address] [phone] Chloride 106 mmol/L Normal 101-111 Co2 Carbon [...] 5 mmol/L Normal 2-11 CBC Auto 08/19/2019 [facility] White Blood 7.4 10^3/uL Normal 3.5-10.[address] [place] [address] [phone] Red Blood Count 3.55 10^6/uL Low 3.70-4.87 [...] Blood Cells % 0.0 Comp Metabolic 08/19/2019 [facility] Sodium 140 mmol/L Normal 135-[address] [place] [address] [phone] Chloride 107 mmol/L Normal 101-111 Co2 Carbon [...] 24 U/L Normal 13-39 Urinalysis Profile 08/19/2019 [facility] Urine Color Yellow [address] [place] [address] [phone] Urine Appearance Cloudy Urine Specific [place] 1.011 Normal 1.010-1.030 Urine pH 7.0 Normal [...] Present Abnormal Absent Urine Culture And 08/19/2019 [facility] Urine Culture SEE RESULT [address] [place] [address] [phone] 1 Because ethnic data is not always [...] [address]: Marko Raygoza MD Acct: [id number] Unit: [id number] AGE: 59 Location: [place] [address] Re12/21/19 SEX: F Status: ADM Dorothy SPEC: [id number] GENET: 12/21/[address] [facility] [address]: Ti BRIONES REQ: [id number] RECD: 12/21/19 STATUS: MATTHEW MARTINEZ DR: Nabila Barrera MD _ SOURCE: URINE SPDESC: ORDERED: Urine Culture Procedure Result Reported Site Urine Culture Final 12/22/19- 1119 ML Organism 1 STREP GROUP B [place] Count >100,000 (Many) CFU/ML Organism 2 NORMAL PREMA [place] Count 10-25,000 (Moderate) CFU/ML Susceptibility testing of penicillins and other B-lactams approved by FDA for treatment of Streptococcus pyogenes (Group A Strep) and Streptococcus agalactiae (Group B Strep) is not necessary for clinical purposes and need not be done routinely, since as with vancomycin, resistant strains have not been recognized. (CLSI F681-K36;p.66) Positive isolates will be saved for one week. Please call the Microbiology Laboratory if further susceptibility testing is needed. * ML - Main Lab . END OF REPORT DEPARTMENT OF PATHOLOGY, [address] [place] [address] Edwin Chanel M.D. Director [facility] # [id number] 5 Because ethnic data is not always [...] [address]: Magen Christensen MD Acct: [id number] Unit: [id number] AGE: 59 Location: ED Re08/19/19 SEX: F Status: DEP ER SPEC: [id number] GENET: 08/19/[address] [facility] [address]: Magen Christensen MD REQ: [id number] RECD: 08/19/19 STATUS: COMP MICHELLE DR: Nabila Barrera MD _ SOURCE: URINE SPDESC: ORDERED: Urine Culture Procedure Result Reported Site Urine Culture Final 08/21/19- 38 ML Organism 1 [facility] [place] Count 50-75,000 (Many) CFU/ML Organism 2 STREP GROUP B [place] Count 10-25,000 (Moderate) CFU/ML Susceptibility testing of penicillins and other B-lactams approved by FDA for treatment of Streptococcus pyogenes (Group A Strep) and Streptococcus agalactiae (Group B Strep) is not necessary for clinical purposes and need not be done routinely, since as with vancomycin, resistant strains have not been recognized. (CLSI J286-I96;p.66) Positive isolates will be saved for one week. Please call the Microbiology Laboratory if further susceptibility testing is needed. 1. [facility] RX --------- ------ Cefazolin >=64 R Cefepime <=1 S Ceftriaxone <=1 S Ciprofloxacin <=0.25 S Gentamicin <=1 S Levofloxacin <=0.12 S Meropenem <=0.25 S Nitrofurantoin <=16 S Tetracycline <=1 S CONTINUED ON NEXT PAGE DEPARTMENT OF PATHOLOGY, [address] [place] [address] Edwin Chanel M.D. Director [facility] # [id number] Specimen: [id number] Collected: 08/19/19 Received: 08/19/19 (Continued) Procedure Result Reported Site Urine Culture Final (continued) 08/21/19- 937 1. [facility] (continued) M.I.C. RX --------- ------ Pipercillin/Tazobactam <=4 S Trimethoprim/Sulfamethoxazole <=20 S Amoxicillin/Clavulanic Acid R Aztreonam <=1 S Contact the Microbiology Department for any additional antibiotic reporting. * ML - Main Lab . END OF REPORT DEPARTMENT OF PATHOLOGY, [address] [place] [address] Edwin Chanel M.D. Director [facility] # [id number] Procedures Date Code Description Status 06/16/2019 640602285 Diabetic Retinal Eye Exam Completed 01/28/2019 902622323 Bone Mineral Density Test Completed 01/28/2019 43605826 Mammogram Completed 01/13/2018 68647930 Mammogram Completed 12/25/2017 959409950 Diabetic Retinal Eye Exam Completed 09/27/2016 85281317 Mammogram Completed 04/30/2016 655144700 Bone Mineral Density Test Completed 09/07/2015 50237924 Mammogram Completed 08/22/2014 49779399 Colonoscopy Completed 06/22/2014 35092564 Mammogram Completed 06/18/2013 57969012 Mammogram Completed 10/27/2009 67061988 Colonoscopy Completed Medical Devices Description No Information Available Encounters Type Date Location Provider Dx Diagnosis Office Visit 12/29/2019 [facility] Valerie R26.2 Difficulty in 9:09a [facility] [place] walking, not Hospitalists elsewhere classified D71 Functional disorders of polymorphonuclear neutrophils R52 Pain, unspecified M32.9 Systemic lupus erythematosus, unspecified Office Visit 12/27/2019 9:08a [facility] Scott R26.2 Difficulty in [facility]oc[facility] [place], [place] walking, not Hospitalists elsewhere classified N18.3 Chronic kidney disease, stage 3 (moderate) R52 Pain, unspecified M32.9 Systemic lupus erythematosus, unspecified Office Visit 12/26/2019 9:05a [facility] Scott R26.2 Difficulty in [facility]oc[facility] [place], [place] walking, not Hospitalists elsewhere classified G40.909 Epilepsy, unsp, not intractable, without status epilepticus M32.9 Systemic lupus erythematosus, unspecified R52 Pain, unspecified Office Visit 12/25/2019 [facility] D71 Functional disorders 9:05a Assoc,pc Armen, [place] of polymorphonuclear Hospitalists neutrophils R26.2 Difficulty in walking, not elsewhere classified G40.909 Epilepsy, unsp, not intractable, without status epilepticus N18.3 Chronic kidney disease, stage 3 (moderate) Office Visit 12/24/2019 9:04a [facility] N39.0 Urinary tract Assoc,pc Armen, [place] infection, site Hospitalists not specified N18.3 Chronic kidney disease, stage 3 (moderate) M32.9 Systemic lupus erythematosus, unspecified G40.909 Epilepsy, unsp, not intractable, without status epilepticus Office Visit 12/22/2019 [facility] Jessica Elsieduke L89.152 Pressure ulcer 8:00a [facility] John [place] of sacral region, stage 2 Office Visit 12/21/2019 [facility] Jina Lesley, R53.1 Weakness 8:54a Assoc,[facility] [place] Hospitalists N39.0 Urinary tract infection, site not specified I12.9 Hypertensive chronic kidney disease w stg 1-4/unsp chr kdny N18.3 Chronic kidney disease, stage 3 (moderate) M32.9 Systemic lupus erythematosus, unspecified Office Visit 10/08/2019 2:00p [facility] Internal Jennifer Zimmer, R21 Rash and other Medicine - N.P. nonspecific skin Ccmob eruption Office Visit 08/26/2019 10:30a [facility] Internal Nabila Barrera, N39.0 Urinary tract [...] dominant side 12/30/2019 G40.909 Epilepsy, unspecified, not Valerie [place] PA intractable, without status epilepticus 12/29/2019 R26.2 Difficulty [...] 12/25/2019 D71 Functional disorders of Kimmie Ayers, [place] polymorphonuclear neutrophils 12/25/2019 R26.2 Difficulty in walking, not elsewhere Kimmie Ayers [place] classified 12/25/2019 G40.909 Epilepsy, unspecified, not Kimmie Ayers, [place] intractable, without status epilepticus 12/25/2019 N18.3 Chronic kidney disease, stage 3 Kimmie Armen, [place] (moderate) 12/24/2019 N39.0 Urinary tract infection, site not Kimmie Ayers [place] specified 12/24/2019 N18.3 Chronic kidney disease, stage 3 Kimmie Kaplannaomi, [place] (moderate) 12/24/2019 M32.9 Systemic lupus erythematosus, Kimmie Armen, [place] unspecified 12/24/2019 G40.909 Epilepsy, unspecified, not Kimmie Ayers, [place] intractable, without status epilepticus 12/23/2019 N39.0 Urinary [...] PA unspecified 12/22/2019 G40.909 Epilepsy, unspecified, not Scott Perez PA intractable, without status epilepticus 12/21/2019 R53.1 Weakness Jina Sutton NP 12/21/2019 N39.0 Urinary tract infection, site not Jina Sutton NP specified 12/21/2019 I12.9 Hypertensive chronic kidney disease Jina Sutton NP with stage 1 through stage 4 chronic kidney disease, or unspecified chronic kidney disease 12/21/2019 N18.3 Chronic kidney disease, stage 3 Jina Sutton, [place] (moderate) 12/21/2019 M32.9 Systemic lupus erythematosus, Jina Sutton, [place] unspecified 10/08/2019 R21 Rash and other nonspecific skin Jennifer Zimmer N.P. eruption 08/26/2019 N39.0 Urinary tract infection, site not Nabila Barrera M.D. specified 08/26/2019 K64.8 Other hemorrhoids Nabila Barrera M.D. 08/26/2019 K59.03 Drug induced constipation Nabila Barrera M.D. 08/26/2019 M79.671 Pain in right foot Nbaila Barrera M.D. 08/26/2019 Z23 Encounter for immunization [...] 11:00 am - Jennifer Zimmer N.P. at [facility] Internal Medicine - Ccmob10/08/2019 - Jennifer Zimmer NMiguel.R21 Rash and other nonspecific skin eruptionNew Medication:Triamcinolone Acetonide 0.1 % - apply twice a day until clearComments:For your rash I have sent a prescription to the pharmacy for Triamcinolone cream. Apply this to the affected areas until clear. If you do not get relief with this, mariama castle contact the office. You may need to see a vac press operator. Functional Status Functional Condition Comment Date Status Standard walker is used to ambulate Active Quad cane is used with the left hand to ambulate Active Mental Status Description No Information Available Referrals Description No Information Available
--- OUTSIDE RECORDS SUMMARY | 2020-01-12 20:26 | XMS REPORT | Continuity of Care Document ---
:1960 External Reference #:[id number] Author Name ANALI Rowe (transmitted by agent of provider Jumana Moreno) Address [address] [place] [address] Care Team Providers Name Role Phone Nabila Barrera MD - Internal Care Team Information Housekeeper Medicine Jamaal Wynn MD - Internal Medicine Care Team Information Housekeeper Mark Thompson MD - Dermatology Care Team Information Housekeeper [phone] Cisco Mcfarland - Nurse Care Team Information Housekeeper [phone] Practitioner Alonzo Lebron MD - Rheumatology Care Team Information Housekeeper Problems Active Problems Provider Date Systemic lupus erythematosus Nabila Barrrea M.D. 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 Onset: [...] Note: phenobarb level 26.27 Aug 2017; in UTILIZATION ENGINEER database [address] García most [...] Triamcinolone Acetonide apply twice a 30gm R21 eJnnifer Zimmer, 10/08/2019 0.1% day until N.P. Cream clear Aspirin 1 by mouth 28tabs Other Ordering 06/07/[address] every day Provider Hydroxychloroquine Sulfate take 1 tablet 180tabs Z79.899 Cisco Mcfarland, 200mg by mouth PAIL BAILER Tablets twice a day M32.14 M32.9 Rosuvastatin Calcium 1 tab by mouth 45tabs Niurka Gonzalez, DAISHA 01/19/2019 5mg every other day Tablets at bedtime Amlodipine Besylate Take 1 Tablet By 90tabs I10 Nabila Barrera, 09/16/2018 10mg Mouth Every Day M.D. Tablets Calcium 500+D3 1 tab by mouth 180tabs M85.89 Cisco Mcfarland, PAIL BAILER 12/18/2017 twice a day [id number] Tablets Phenobarbital 1 tab by mouth 60tabs [...] Code Status Date Vaccine Reaction Lot # [id number] Given 08/26/2019 Influenza Virus Vaccine, [id number] Quadrivalent ([id number]), Derived From Cell 42414 Given 07/15/2019 Pneumococcal Conjugate Vaccine [id number] Valent For Intramuscular Use 33807 Given 08/27/2018 Influenza Virus Vaccine, Pt. tolerated well. [id number] Quadrivalent, Split, Preservative Free 71748 Given 07/01/2018 Pneumonia Vaccine [id number] 14392 Given 07/17/2017 Influenza Virus Vaccine, Quadrivalent, Split, Preservative Free 30721 Given 07/15/2016 Influenza Virus Vaccine, [id number] Quadrivalent, Split, Preservative Free 80326 Given 08/03/2015 Influenza Virus Vaccine, No reaction noted [id number] Quadrivalent, Split, Preservative Free 42733 Given 06/05/2015 Tdap - Tetanus/Diptheria/Acellular Pertussis 36968 Given 07/21/2014 Influenza Virus Vaccine, [id number] Quadrivalent, Split, Preservative Free 85776 Refused 08/12/2013 Tdap - Tetanus/Diptheria/Acellular Pertussis [id number] Refused 08/12/2013 Flu Vaccine Split Virus Preservative [...] Result H/L Range Note Comp Metabolic 12/21/2019 [facility] Sodium 138 mmol/L Normal 135-145 Panel [address] [place] [address] [phone] Potassium 4.2 mmol/L Normal 3.5-5.0 Chloride 104 [...] Egfr 32.7 >60 1 CBC Auto 12/21/2019 [facility] White Blood 3.8 10^3/uL Normal 3.5-10.[address] [place] [address] [phone] Red Blood Count 3.49 10^6/uL Low 3.70-4.87 [...] Blood Cells % 0.1 Urinalysis Profile 12/21/2019 [facility] Urine Color Yellow [address] [place] [address] [phone] Urine Appearance Cloudy Urine Specific [place] 1.010 Normal 1.010-1.030 Urine pH 7.0 Normal [...] 1+ Abnormal Absent Urine Culture And 12/21/2019 [facility] Urine SEE RESULT [address] [place] [address] [phone] CBC Auto Diff 12/15/2019 [facility] White Blood 4.4 10^3/uL Normal 3.5-[address] Count 0.8 [place] [address] [phone] Red Blood Count 3.44 10^6/uL Low 3.70-4.87 [...] Blood Cells % 0.1 Comp Metabolic 12/15/2019 [facility] Sodium 136 mmol/L Normal 135-[address] [place] [address] [phone] Chloride 106 mmol/L Normal 101-111 Co2 Carbon [...] 5 mmol/L Normal 2-11 CBC Auto 08/19/2019 [facility] White Blood 7.4 10^3/uL Normal 3.5-10.[address] [place] [address] [phone] Red Blood Count 3.55 10^6/uL Low 3.70-4.87 [...] Blood Cells % 0.0 Comp Metabolic 08/19/2019 [facility] Sodium 140 mmol/L Normal 135-[address] [place] [address] [phone] Chloride 107 mmol/L Normal 101-111 Co2 Carbon [...] 24 U/L Normal 13-39 Urinalysis Profile 08/19/2019 [facility] Urine Color Yellow [address] [place] [address] [phone] Urine Appearance Cloudy Urine Specific [place] 1.011 Normal 1.010-1.030 Urine pH 7.0 Normal [...] Present Abnormal Absent Urine Culture And 08/19/2019 [facility] Urine Culture SEE RESULT [address] [place] [address] [phone] 1 Because ethnic data is not always [...] [address]: Marko Raygoza MD Acct: [id number] Unit: [id number] AGE: 59 Location: [place] [address] Re12/21/19 SEX: F Status: ADM Droothy SPEC: [id number] GENET: 12/21/[address] [facility] [address]: Ti BRIONES REQ: [id number] RECD: 12/21/19 STATUS: MATTHEW MARTINEZ DR: Nabila Barrera MD _ SOURCE: URINE SPDESC: ORDERED: Urine Culture Procedure Result Reported Site Urine Culture Final 12/22/19- 1119 ML Organism 1 STREP GROUP B Mary D Count >100,000 (Many) CFU/ML Organism 2 NORMAL PREMA Mary D Count 10-25,000 (Moderate) CFU/ML Susceptibility testing of penicillins and other B-lactams approved by FDA for treatment of Streptococcus pyogenes (Group A Strep) and Streptococcus agalactiae (Group B Strep) is not necessary for clinical purposes and need not be done routinely, since as with vancomycin, resistant strains have not been recognized. (CLSI O677-S58;p.66) Positive isolates will be saved for one week. Please call the Microbiology Laboratory if further susceptibility testing is needed. * ML - Main Lab . END OF REPORT DEPARTMENT OF PATHOLOGY, [address] [place] [address] Edwin Chanel M.D. Director [facility] # [id number] 5 Because ethnic data is not always [...] [address]: Magen Christensen MD Acct: [id number] Unit: [id number] AGE: 59 Location: ED Re08/19/19 SEX: F Status: DEP ER SPEC: [id number] GENET: 08/19/[address] [facility] [address]: Magen Christensen MD REQ: [id number] RECD: 08/19/19 STATUS: COMP MICHELLE DR: Nabila Barrera MD _ SOURCE: URINE SPDESC: ORDERED: Urine Culture Procedure Result Reported Site Urine Culture Final 08/21/19- 38 ML Organism 1 [facility] Mary D Count 50-75,000 (Many) CFU/ML Organism 2 STREP GROUP B Mary D Count 10-25,000 (Moderate) CFU/ML Susceptibility testing of penicillins and other B-lactams approved by FDA for treatment of Streptococcus pyogenes (Group A Strep) and Streptococcus agalactiae (Group B Strep) is not necessary for clinical purposes and need not be done routinely, since as with vancomycin, resistant strains have not been recognized. (CLSI J703-L70;p.66) Positive isolates will be saved for one week. Please call the Microbiology Laboratory if further susceptibility testing is needed. 1. [facility] M.I.C. RX --------- ------ Cefazolin >=64 R Cefepime <=1 S Ceftriaxone <=1 S Ciprofloxacin <=0.25 S Gentamicin <=1 S Levofloxacin <=0.12 S Meropenem <=0.25 S Nitrofurantoin <=16 S Tetracycline <=1 S CONTINUED ON NEXT PAGE DEPARTMENT OF PATHOLOGY, [address] [place] [address] Edwin Chanel M.D. Director [facility] # [id number] Specimen: [id number] Collected: 08/19/19 Received: 08/19/19 (Continued) Procedure Result Reported Site Urine Culture Final (continued) 08/21/19- 937 1. [facility] (continued) M.I.C. RX --------- ------ Pipercillin/Tazobactam <=4 S Trimethoprim/Sulfamethoxazole <=20 S Amoxicillin/Clavulanic Acid R Aztreonam <=1 S Contact the Microbiology Department for any additional antibiotic reporting. * ML - Main Lab . END OF REPORT DEPARTMENT OF PATHOLOGY, [address] [place] [address] Edwin Chanel M.D. Director [facility] # [id number] Procedures Date Code Description Status 06/16/2019 [id number] Diabetic Retinal Eye Exam Completed 01/28/2019 089203311 Bone Mineral Density Test Completed 01/28/2019 68460971 Mammogram Completed 01/13/2018 13524599 Mammogram Completed 12/25/2017 470775304 Diabetic Retinal Eye Exam Completed 09/27/2016 57761084 Mammogram Completed 04/30/2016 726913478 Bone Mineral Density Test Completed 09/07/2015 78823401 Mammogram Completed 08/22/2014 24719565 Colonoscopy Completed 06/22/2014 50628663 Mammogram Completed 06/18/2013 76399599 Mammogram Completed 10/27/2009 64966588 Colonoscopy Completed Medical Devices Description No Information Available Encounters Type Date Location Provider Dx Diagnosis Office Visit 12/29/2019 [facility] Valerie R26.2 Difficulty in 9:09a Assoc,pc ANALI Wylie walking, not Hospitalists elsewhere classified D71 Functional disorders of polymorphonuclear neutrophils R52 Pain, unspecified M32.9 Systemic lupus erythematosus, unspecified Office Visit 12/26/2019 9:05a [facility] Scott R26.2 Difficulty in Assoc,pc Ana, [place] walking, not Hospitalists elsewhere classified G40.909 Epilepsy, unsp, not intractable, without status epilepticus M32.9 Systemic lupus erythematosus, unspecified R52 Pain, unspecified Office Visit 12/25/2019 [facility] D71 Functional disorders 9:05a Assoc,pc Armen, RETAIL PHARMACY MANAGER of polymorphonuclear Hospitalists neutrophils R26.2 Difficulty in walking, not elsewhere classified G40.909 Epilepsy, unsp, not intractable, without status epilepticus N18.3 Chronic kidney disease, stage 3 (moderate) Office Visit 12/24/2019 9:04a [facility] N39.0 Urinary tract Assoc,pc Armen RETAIL PHARMACY MANAGER infection, site Hospitalists not specified N18.3 Chronic kidney disease, stage 3 (moderate) M32.9 Systemic lupus erythematosus, unspecified G40.909 Epilepsy, unsp, not intractable, without status epilepticus Office Visit 12/22/2019 [facility] Jessica Elsieduke L89.152 Pressure ulcer 8:00a AT [facility] DAISHA Lopez of sacral region, stage 2 Office Visit 12/21/2019 [facility] Jina Sutton, R53.1 Weakness 8:54a Assoc,pc RETAIL PHARMACY MANAGER Hospitalists N39.0 Urinary tract infection, site not specified I12.9 Hypertensive chronic kidney disease w stg 1-4/unsp chr kdny N18.3 Chronic kidney disease, stage 3 (moderate) M32.9 Systemic lupus erythematosus, unspecified Office Visit 10/08/2019 2:00p [facility] Jennifer Zimmer, R21 Rash and other Medicine - N.P. nonspecific skin Ccmob eruption Office Visit 08/26/2019 10:30a [facility] Nabila Barrera, N39.0 Urinary tract Medicine - M.D. 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 12/30/2019 G40.909 Epilepsy, unspecified, not Valerie Wylie PA intractable, without status epilepticus 12/29/2019 R26.2 Difficulty in walking, not elsewhere ANALI Rowe classified 12/29/2019 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 12/29/2019 R52 Pain, unspecified Valerie Wylie PA 12/29/2019 M32.9 Systemic lupus erythematosus, Valerie Wylie PA unspecified 12/28/2019 R26.2 Difficulty in walking, not elsewhere Valerie Wylie PA classified 12/28/2019 R52 Pain, unspecified Valerie Wylie PA 12/28/2019 N18.3 Chronic kidney disease, stage 3 Valerie Wylie PA (moderate) 12/28/2019 M32.9 Systemic lupus erythematosus, Valerie Wylie PA unspecified 12/27/2019 R26.2 Difficulty in walking, not elsewhere Scott Perez, PA classified 12/27/2019 N18.3 Chronic kidney disease, stage 3 Scott Perez PA (moderate) 12/27/2019 R52 Pain, unspecified Scott [place], PA 12/27/2019 M32.9 Systemic lupus erythematosus, Scott Ana, PA unspecified 12/26/2019 R26.2 Difficulty in walking, not elsewhere Scott Perez, PA classified 12/26/2019 G40.909 Epilepsy, unspecified, not Scott Perez, PA intractable, without status epilepticus 12/26/2019 M32.9 Systemic lupus erythematosus, Scott [place], PA unspecified 12/26/2019 R52 Pain, unspecified Scott Valenzuelaber, PA 12/25/2019 D71 Functional disorders of Kimmie Ayers, RETAIL PHARMACY MANAGER polymorphonuclear neutrophils 12/25/2019 R26.2 Difficulty in walking, not elsewhere Kimmie Ayers RETAIL PHARMACY MANAGER classified 12/25/2019 G40.909 Epilepsy, unspecified, not Kimmie Shortle, RETAIL PHARMACY MANAGER intractable, without status epilepticus 12/25/2019 N18.3 Chronic kidney disease, stage 3 Kimmie Ayers, RETAIL PHARMACY MANAGER (moderate) 12/24/2019 N39.0 Urinary tract infection, site not Kimmie Ayers RETAIL PHARMACY MANAGER specified 12/24/2019 N18.3 Chronic kidney disease, stage 3 Kimmie Ayers, RETAIL PHARMACY MANAGER (moderate) 12/24/2019 M32.9 Systemic lupus erythematosus, Kimmie Ayers, RETAIL PHARMACY MANAGER unspecified 12/24/2019 G40.909 Epilepsy, unspecified, not Kimmie Ayers, RETAIL PHARMACY MANAGER intractable, without status epilepticus 12/23/2019 N39.0 Urinary [...] García classified 12/22/2019 M32.9 Systemic lupus erythematosus, ANALI García unspecified 12/22/2019 G40.909 Epilepsy, unspecified, not ANALI García intractable, without status epilepticus 12/21/2019 R53.1 Weakness Jina Sutton NP 12/21/2019 N39.0 Urinary tract infection, site not Jina Sutton NP specified 12/21/2019 I12.9 Hypertensive chronic kidney disease Jina Sutton NP with stage 1 through stage 4 chronic kidney disease, or unspecified chronic kidney disease 12/21/2019 N18.3 Chronic kidney disease, stage 3 Jina Sutton NP (moderate) 12/21/2019 M32.9 Systemic lupus erythematosus, Jina Sutton NP unspecified 10/08/2019 R21 Rash and other nonspecific skin Jennifer Zimmer, N.P. eruption 08/26/2019 N39.0 Urinary tract infection, site not Naibla Barrera M.D. specified 08/26/2019 K64.8 Other hemorrhoids Nabila Barrera M.D. 08/26/2019 K59.03 Drug induced constipation Nabila Barrera M.D. 08/26/2019 M79.671 Pain in right foot Nabila Barrera M.D. 08/26/2019 Z23 Encounter for immunization Nabila Barrera M.D. 07/15/2019 Z00.00 Encounter for general adult medical Nabila Barrera M.D. examination without abnormal findings 07/15/2019 H25.23 Age-related cataract, jajagagnian Nabila Barrera M.D. type, bilateral 07/15/2019 M32.9 [...] Future Appointment(s):01/14/2020 11:00 am - [facility]immer [facility] Jennifer Zimmer N.Sho.R21 Rash and other nonspecific skin eruptionNew Medication:Triamcinolone Acetonide 0.1 % - apply twice a day until clearComments:For your rash I have sent a prescription to the pharmacy for Triamcinolone cream. Apply this to the affected areas until clear. If you do not get relief with this, mariama castle contact the office. You may need to see a certified paralegal. Functional Status Functional Condition Comment Date Status Standard walker is used to ambulate Active Quad cane is used with the left hand to ambulate Active Mental Status Description No Information Available Referrals Description No Information Available
--- OUTSIDE RECORDS SUMMARY | 2020-01-12 20:26 | XMS REPORT | Continuity of Care Document ---
:1960 External Reference #:[id number] Author Name ANALI García (transmitted by agent of provider Jumana Moreno) Address [address] [place] [address] Care Team Providers Name Role Phone Nabila Barrera MD - Internal Care Team Information [facility] Office Supervisor [phone] Medicine Jamaal Wynn MD - Internal Medicine Care Team Information [facility] Office Supervisor Mark Thompson MD - Dermatology Care Team Information [facility] Office Supervisor [phone] Cisco Mcfarland - Nurse Care Team Information [facility] Office Supervisor [phone] Practitioner Alonzo Lebron MD - Rheumatology Care Team Information [facility] Office Supervisor [phone] Problems Active Problems Provider Date Systemic lupus erythematosus Nabila Barrera M.D. 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 [...] Note: phenobarb level 26.27 Aug 2017; in [facility] database [address] García most [...] 180tabs Z79.899 Cisco Mcfarland, 200mg by mouth INTERVENTIONAL PHYSICIAN Tablets twice a day M32.14 M32.9 Rosuvastatin Calcium 1 tab by mouth 45tabs Niurka Gonzalez, DAISHA 01/19/2019 5mg every other day Tablets at bedtime Amlodipine Besylate Take 1 Tablet By 90tabs I10 Nabila Barrera, 09/16/2018 10mg Mouth Every Day M.D. Tablets Calcium 500+D3 1 tab by mouth 180tabs M85.89 RADHA Maravilla 12/18/2017 twice a day [id number] Tablets Phenobarbital 1 tab by mouth 60tabs [...] 01/05/2020 Metamucil once a day 60caps K59.03 Nbaila Barrera, 08/26/2019 - 0.52gm Capsules M.D. 10/07/2019 Ciprofloxacin HCL Take 1 Tablet Unknown 08/22/2019 - 500mg By Mouth Two 10/07/2019 Tablets Times Daily For 3 Days Immunizations CPT Code Status Date Vaccine Reaction Lot # [id number] Given 08/26/2019 Influenza Virus Vaccine, [id number] Quadrivalent ([id number]), Derived From Cell 27245 Given 07/15/2019 Pneumococcal Conjugate Vaccine [id number] Valent For Intramuscular Use 68776 Given 08/27/2018 Influenza Virus Vaccine, Pt. tolerated well. [id number] Quadrivalent, Split, Preservative Free 80100 Given 07/01/2018 Pneumonia Vaccine [id number] 62581 Given 07/17/2017 Influenza Virus Vaccine, Quadrivalent, Split, Preservative Free 23885 Given 07/15/2016 Influenza Virus Vaccine, [id number] Quadrivalent, Split, Preservative Free 14411 Given 08/03/2015 Influenza Virus Vaccine, No reaction noted [id number] Quadrivalent, Split, Preservative Free 18995 Given 06/05/2015 Tdap - Tetanus/Diptheria/Acellular Pertussis 69200 Given 07/21/2014 Influenza Virus Vaccine, [id number] Quadrivalent, Split, Preservative Free 47820 Refused 08/12/2013 Tdap - Tetanus/Diptheria/Acellular Pertussis [id number] Refused 08/12/2013 Flu Vaccine Split Virus Preservative [...] Result H/L Range Note Comp Metabolic 12/21/2019 [facility] Sodium 138 mmol/L Normal 135-145 Panel [address] [place] [address] [phone] Potassium 4.2 mmol/L Normal 3.5-5.0 Chloride 104 [...] Egfr 32.7 >60 1 CBC Auto 12/21/2019 [facility] White Blood 3.8 10^3/uL Normal 3.5-10.[address] [place] [address] [phone] Red Blood Count 3.49 10^6/uL Low 3.70-4.87 [...] Blood Cells % 0.1 Urinalysis Profile 12/21/2019 [facility] Urine Color Yellow [address] [place] [address] [phone] Urine Appearance Cloudy Urine Specific [place] 1.010 Normal 1.010-1.030 Urine pH 7.0 Normal [...] 1+ Abnormal Absent Urine Culture And 12/21/2019 [facility] Urine SEE RESULT [address] [place] [place] [address] [phone] CBC Auto Diff 12/15/2019 [facility] White Blood 4.4 10^3/uL Normal 3.5-[address] Count 0.8 [place] [address] [phone] Red Blood Count 3.44 10^6/uL Low 3.70-4.87 [...] Blood Cells % 0.1 Comp Metabolic 12/15/2019 [facility] Sodium 136 mmol/L Normal 135-[address] [place] [address] [phone] Chloride 106 mmol/L Normal 101-111 Co2 Carbon [...] 5 mmol/L Normal 2-11 CBC Auto 08/19/2019 [facility] White Blood 7.4 10^3/uL Normal 3.5-10.[address] [place] [address] [phone] Red Blood Count 3.55 10^6/uL Low 3.70-4.87 [...] Blood Cells % 0.0 Comp Metabolic 08/19/2019 [facility] Sodium 140 mmol/L Normal 135-[address] [place] [address] [phone] Chloride 107 mmol/L Normal 101-111 Co2 Carbon [...] 24 U/L Normal 13-39 Urinalysis Profile 08/19/2019 [facility] Urine Color Yellow [address] [place] [address] [phone] Urine Appearance Cloudy Urine Specific [place] 1.011 Normal 1.010-1.030 Urine pH 7.0 Normal [...] Present Abnormal Absent Urine Culture And 08/19/2019 [facility] Urine Culture SEE RESULT [address] [place] [address] [phone] 1 Because ethnic data is not always [...] [address]: Marko Raygoza MD Acct: [id number] Unit: [id number] AGE: 59 Location: [place] [address] Re12/21/19 SEX: F Status: ADM Dorothy SPEC: [id number] GENET: 12/21/19-[address] [facility] [address]: Ti BRIONES REQ: [id number] RECD: 12/21/19 STATUS: [place] [facility] DR: Nabila Barrera MD _ SOURCE: [facility]INE [facility]: ORDERED: Urine Culture Procedure Result Reported Site Urine Culture Final 12/22/19- 1119 ML Organism 1 STREP GROUP B [place] Count >100,000 (Many) CFU/ML Organism 2 NORMAL PREMA [place] Count 10-25,000 (Moderate) CFU/ML Susceptibility testing of penicillins and other B-lactams approved by FDA for treatment of Streptococcus pyogenes (Group A Strep) and Streptococcus agalactiae (Group B Strep) is not necessary for clinical purposes and need not be done routinely, since as with vancomycin, resistant strains have not been recognized. (CLSI Y993-G86;p.66) Positive isolates will be saved for one week. Please call the Microbiology Laboratory if further susceptibility testing is needed. * ML - Main Lab . END OF REPORT DEPARTMENT OF PATHOLOGY, [address] [place] [address] Edwin Chanel M.D. Director [facility] # [id number] 5 Because ethnic data is not always [...] [address]: Magen Christensen MD Acct: [id number] Unit: [id number] AGE: 59 Location: ED Re08/19/19 SEX: F Status: DEP ER SPEC: [id number] GENET: 08/19/[address] [facility] [address]: Magen Christensen MD REQ: [id number] RECD: 08/19/19 STATUS: [place] DR: Nabila Barrera MD _ SOURCE: URINE SPDESC: ORDERED: Urine Culture Procedure Result Reported Site Urine Culture Final 08/21/19937 ML Organism 1 [facility] [place] Count 50-75,000 (Many) CFU/ML Organism 2 STREP GROUP B [place] Count 10-25,000 (Moderate) CFU/ML Susceptibility testing of penicillins and other B-lactams approved by FDA for treatment of Streptococcus pyogenes (Group A Strep) and Streptococcus agalactiae (Group B Strep) is not necessary for clinical purposes and need not be done routinely, since as with vancomycin, resistant strains have not been recognized. (CLSI E654-A57;p.66) Positive isolates will be saved for one week. Please call the Microbiology Laboratory if further susceptibility testing is needed. 1. [facility] RX --------- ------ Cefazolin >=64 R Cefepime <=1 S Ceftriaxone <=1 S Ciprofloxacin <=0.25 S Gentamicin <=1 S Levofloxacin <=0.12 S Meropenem <=0.25 S Nitrofurantoin <=16 S Tetracycline <=1 S CONTINUED ON NEXT PAGE DEPARTMENT OF PATHOLOGY, [address] [place] [address] Edwin Chanel M.D. Director [facility] # [id number] Specimen: [id number] Collected: 08/19/19 Received: 08/19/19 (Continued) Procedure Result Reported Site Urine Culture Final (continued) 08/21/19- 937 1. [facility] (continued) [facility].I.[facility] RX --------- ------ Pipercillin/Tazobactam <=4 S Trimethoprim/Sulfamethoxazole <=20 S Amoxicillin/Clavulanic Acid R Aztreonam <=1 S Contact the Microbiology Department for any additional antibiotic reporting. * ML - Main Lab . END OF REPORT DEPARTMENT OF PATHOLOGY, [address] [place] [address] Edwin Chanel M.D. Director [facility] # [id number] Procedures Date Code Description Status 06/16/2019 [id number] Diabetic Retinal Eye Exam Completed 01/28/2019 [id number] Bone Mineral Density Test Completed 01/28/2019 [id number] Mammogram Completed 01/13/2018 [id number] Mammogram Completed 12/25/2017 637542609 Diabetic Retinal Eye Exam Completed 09/27/2016 34001993 Mammogram Completed 04/30/2016 079457034 Bone Mineral Density Test Completed 09/07/2015 43357942 Mammogram Completed 08/22/2014 [id number] Colonoscopy Completed 06/22/2014 33457068 Mammogram Completed 06/18/2013 36599783 Mammogram Completed 10/27/2009 [id number] Colonoscopy Completed Medical Devices Description No Information Available Encounters Type Date Location Provider Dx Diagnosis [facility]:09a [facility] [place] walking, not Hospitalists elsewhere classified D71 Functional disorders of polymorphonuclear neutrophils R52 Pain, unspecified M32.9 Systemic lupus erythematosus, unspecified Office Visit 12/28/2019 [facility] Valerie R26.2 Difficulty in 9:09a [facility] [place] walking, not Hospitalists elsewhere classified R52 Pain, unspecified N18.3 Chronic kidney disease, stage 3 (moderate) M32.9 Systemic lupus erythematosus, unspecified Office Visit 12/27/2019 9:08a [facility] Scott R26.2 Difficulty in [facility]oc[facility] [place], [place] walking, not Hospitalists elsewhere classified N18.3 Chronic kidney disease, stage 3 (moderate) R52 Pain, unspecified M32.9 Systemic lupus erythematosus, unspecified Office Visit 12/26/2019 9:05a [facility] Scott R26.2 Difficulty in [facility] [place] walking, not Hospitalists elsewhere classified G40.909 Epilepsy, unsp, not intractable, without status epilepticus M32.9 Systemic lupus erythematosus, unspecified R52 Pain, unspecified Office Visit 12/25/2019 [facility] D71 Functional disorders 9:05a Assoc,pc Armen, R D MANAGER of polymorphonuclear Hospitalists neutrophils R26.2 Difficulty in walking, not elsewhere classified G40.909 Epilepsy, unsp, not intractable, without status epilepticus N18.3 Chronic kidney disease, stage 3 (moderate) Office Visit 12/24/2019 9:04a [facility] N39.0 Urinary tract Assoc,[facility] Armen, R D MANAGER infection, site Hospitalists not specified N18.3 Chronic kidney disease, stage 3 (moderate) M32.9 Systemic lupus erythematosus, unspecified G40.909 Epilepsy, unsp, not intractable, without status epilepticus Office Visit 12/22/2019 [facility] Jessica Manjarrez L89.152 Pressure ulcer 8:00a [place] [facility] [place] DAISHA Lopez of sacral region, stage 2 Office Visit 12/21/2019 [facility] Jina Sutton, R53.1 Weakness 8:54a Assoc,pc R D MANAGER Hospitalists N39.0 Urinary tract infection, site not specified I12.9 Hypertensive chronic kidney disease w stg 1-4/unsp chr kdny N18.3 Chronic kidney disease, stage 3 (moderate) M32.9 Systemic lupus erythematosus, unspecified Office Visit 10/08/2019 2:00p [facility] Jennifer Zimmer, R21 Rash and other Medicine - N.P. nonspecific skin Ccmob eruption Office Visit 08/26/2019 10:30a [facility] Nabila Barrera, N39.0 Urinary tract Medicine [...] 12/25/2019 D71 Functional disorders of Kimmie Ayers, R D MANAGER polymorphonuclear neutrophils 12/25/2019 R26.2 Difficulty in walking, not elsewhere Kimmie Shortle, R D MANAGER classified 12/25/2019 G40.909 Epilepsy, unspecified, not Kimmie Shortle, R D MANAGER intractable, without status epilepticus 12/25/2019 N18.3 Chronic kidney disease, stage 3 Kimmie Ayers, R D MANAGER (moderate) 12/24/2019 N39.0 Urinary tract infection, site not Kimmie Ayers, R D MANAGER specified 12/24/2019 N18.3 Chronic kidney disease, stage 3 Kimmie Shortle, R D MANAGER (moderate) 12/24/2019 M32.9 Systemic lupus erythematosus, Kimmie Ayers, R D MANAGER unspecified 12/24/2019 G40.909 Epilepsy, unspecified, not Kimmie Shortle, R D MANAGER intractable, without status epilepticus 12/23/2019 N39.0 [...] unspecified 12/22/2019 G40.909 Epilepsy, unspecified, not ANALI Gacría intractable, without status epilepticus 12/21/2019 R53.1 Weakness Jina Sutton, R D MANAGER 12/21/2019 N39.0 Urinary tract infection, site not Jina Sutton R D MANAGER specified 12/21/2019 I12.9 Hypertensive chronic kidney disease Jina SuttonDAISHA with stage 1 through stage 4 chronic kidney disease, or unspecified chronic kidney disease 12/21/2019 N18.3 Chronic kidney disease, stage 3 Jina Sutton R D MANAGER (moderate) 12/21/2019 M32.9 Systemic lupus erythematosus, Jina Sutton, R D MANAGER unspecified 10/08/2019 R21 Rash and other nonspecific [...] 11:00 am - Jennifer Zimmer N.P. at [facility]10/08/2019 - Jennifer Zimmer N.P.R21 Rash and other nonspecific skin eruptionNew Medication:Triamcinolone Acetonide 0.1 % - apply twice a day until clearComments:For your rash I have sent a prescription to the pharmacy for Triamcinolone cream. Apply this to the affected areas until clear. If you do not get relief with this, mariama castle contact the office. You may need to see a tailercpa. Functional Status Functional Condition Comment Date Status Standard walker is used to ambulate Active Quad cane is used with the left hand to ambulate Active Mental Status Description No Information Available Referrals Description No Information Available
--- OUTSIDE RECORDS SUMMARY | 2020-01-12 20:26 | XMS REPORT | Continuity of Care Document ---
:1960 External Reference #:[id number] Author Name ANALI Rowe (transmitted by agent of provider Jumana Moreno) Address [address] [place] [address] Care Team Providers Name Role Phone Nabila Barrera MD - Internal Care Team Information Project Leader Medicine Jamaal Wynn MD - Internal Medicine Care Team Information Project Leader Mark Thompson MD - Dermatology Care Team Information Project Leader [phone] Cisco Mcfarland - Nurse Care Team Information Project Leader [phone] Practitioner Alonzo Lebron MD - Rheumatology Care Team Information Project Leader Problems Active Problems Provider Date Systemic lupus erythematosus Nabila Barrera M.D. Onset: 05/09/2012 Medications Supervisor Cell Efficiency (Current) Use Encounter Emile Hawkins M.D. Onset: [...] Note: phenobarb level 26.27 Aug 2017; in [facility] database [address] García most [...] 180tabs Z79.899 Cisco Mcfarland, 200mg by mouth TALENT ACQUISITION DIRECTOR Tablets twice a day M32.14 M32.9 Rosuvastatin Calcium 1 tab by mouth 45tabs Niurka Gonzalez, DAISHA 01/19/2019 5mg every other day Tablets at bedtime Amlodipine Besylate Take 1 Tablet By 90tabs I10 Nabila Barrera, 09/16/2018 10mg Mouth Every Day M.D. Tablets Calcium 500+D3 1 tab by mouth 180tabs M85.89 Cisco Mcfarland, TALENT ACQUISITION DIRECTOR 12/18/2017 twice a day [id number] Tablets Phenobarbital 1 tab by mouth 60tabs [...] Code Status Date Vaccine Reaction Lot # [id number] Given 08/26/2019 Influenza Virus Vaccine, [id number] Quadrivalent ([id number]), Derived From Cell 48082 Given 07/15/2019 Pneumococcal Conjugate Vaccine [id number] Valent For Intramuscular Use 36916 Given 08/27/2018 Influenza Virus Vaccine, Pt. tolerated well. [id number] Quadrivalent, Split, Preservative Free 05627 Given 07/01/2018 Pneumonia Vaccine [id number] 79735 Given 07/17/2017 Influenza Virus Vaccine, Quadrivalent, Split, Preservative Free 20832 Given 07/15/2016 Influenza Virus Vaccine, [id number] Quadrivalent, Split, Preservative Free 88983 Given 08/03/2015 Influenza Virus Vaccine, No reaction noted [id number] Quadrivalent, Split, Preservative Free 94124 Given 06/05/2015 Tdap - Tetanus/Diptheria/Acellular Pertussis 26785 Given 07/21/2014 Influenza Virus Vaccine, [id number] Quadrivalent, Split, Preservative Free 42115 Refused 08/12/2013 Tdap - Tetanus/Diptheria/Acellular Pertussis [id number] Refused 08/12/2013 Flu Vaccine Split Virus Preservative [...] Result H/L Range Note Comp Metabolic 12/21/2019 [facility] Sodium 138 mmol/L Normal 135-145 Panel [address] [place] [address] [phone] Potassium 4.2 mmol/L Normal 3.5-5.0 Chloride 104 [...] Egfr 32.7 >60 1 CBC Auto 12/21/2019 [facility] White Blood 3.8 10^3/uL Normal 3.5-10.[address] [place] [address] [phone] Red Blood Count 3.49 10^6/uL Low 3.70-4.87 [...] Blood Cells % 0.1 Urinalysis Profile 12/21/2019 [facility] Urine Color Yellow [address] [place] [address] [phone] Urine Appearance Cloudy Urine Specific Gary 1.010 Normal 1.010-1.030 Urine pH 7.0 Normal [...] 1+ Abnormal Absent Urine Culture And 12/21/2019 [facility] Urine SEE RESULT [address] [place] [address] [phone] CBC Auto Diff 12/15/2019 [facility] White Blood 4.4 10^3/uL Normal 3.5-[address] Count 0.8 [place] [address] [phone] Red Blood Count 3.44 10^6/uL Low 3.70-4.87 [...] Blood Cells % 0.1 Comp Metabolic 12/15/2019 [facility] Sodium 136 mmol/L Normal 135-[address] [place] [address] [phone] Chloride 106 mmol/L Normal 101-111 Co2 Carbon [...] 5 mmol/L Normal 2-11 CBC Auto 08/19/2019 [facility] White Blood 7.4 10^3/uL Normal 3.5-10.[address] [place] [address] [phone] Red Blood Count 3.55 10^6/uL Low 3.70-4.87 [...] Blood Cells % 0.0 Comp Metabolic 08/19/2019 [facility] Sodium 140 mmol/L Normal 135-[address] [place] [address] [phone] Chloride 107 mmol/L Normal 101-111 Co2 Carbon [...] 24 U/L Normal 13-39 Urinalysis Profile 08/19/2019 [facility] Urine Color Yellow [address] [place] [address] [phone] Urine Appearance Cloudy Urine Specific Gary 1.011 Normal 1.010-1.030 Urine pH 7.0 Normal [...] Present Abnormal Absent Urine Culture And 08/19/2019 [facility] Urine Culture SEE RESULT [address] [place] [address] [phone] 1 Because ethnic data is not always [...] [address]: Marko Raygoza MD Acct: [id number] Unit: [id number] AGE: 59 Location: [place] [address] Re12/21/19 SEX: F Status: ADM Dorothy SPEC: [id number] GENET: 12/21/[address] [facility] [address]: Ti BRIONES REQ: [id number] RECD: 12/21/19 STATUS: MATTHEW MARTINEZ DR: Nabila Barrera MD _ SOURCE: URINE SPDESC: ORDERED: Urine Culture Procedure Result Reported Site Urine Culture Final 12/22/19- 1119 ML Organism 1 STREP GROUP B [place] Count >100,000 (Many) CFU/ML Organism 2 NORMAL PREMA [place] Count 10-25,000 (Moderate) CFU/ML Susceptibility testing of penicillins and other B-lactams approved by FDA for treatment of Streptococcus pyogenes (Group A Strep) and Streptococcus agalactiae (Group B Strep) is not necessary for clinical purposes and need not be done routinely, since as with vancomycin, resistant strains have not been recognized. (CLSI H575-J86;p.66) Positive isolates will be saved for one week. Please call the Microbiology Laboratory if further susceptibility testing is needed. * ML - Main Lab . END OF REPORT DEPARTMENT OF PATHOLOGY, [address] [place] [address] Edwin Chanel M.D. Director [facility] # [id number] 5 Because ethnic data is not always [...] [address]: Magen Christensen MD Acct: [id number] Unit: [id number] AGE: 59 Location: ED Re08/19/19 SEX: F Status: DEP ER SPEC: [id number] GENET: 08/19/[address] [facility] [address]: Magen Christensen MD REQ: [id number] RECD: 08/19/19 STATUS: COMP MICHELLE DR: Nabila Barrera MD _ SOURCE: URINE SPDESC: ORDERED: Urine Culture Procedure Result Reported Site Urine Culture Final 08/21/19- 38 ML Organism 1 [facility] [place] Count 50-75,000 (Many) CFU/ML Organism 2 STREP GROUP B [place] Count 10-25,000 (Moderate) CFU/ML Susceptibility testing of penicillins and other B-lactams approved by FDA for treatment of Streptococcus pyogenes (Group A Strep) and Streptococcus agalactiae (Group B Strep) is not necessary for clinical purposes and need not be done routinely, since as with vancomycin, resistant strains have not been recognized. (CLSI G927-B55;p.66) Positive isolates will be saved for one week. Please call the Microbiology Laboratory if further susceptibility testing is needed. 1. [facility].I.[facility]. RX --------- ------ Cefazolin >=64 R Cefepime <=1 S Ceftriaxone <=1 S Ciprofloxacin <=0.25 S Gentamicin <=1 S Levofloxacin <=0.12 S Meropenem <=0.25 S Nitrofurantoin <=16 S Tetracycline <=1 S CONTINUED ON NEXT PAGE DEPARTMENT OF PATHOLOGY, [address] [place] [address] Edwin Chanel M.D. Director [facility] # [id number] Specimen: [id number] Collected: 08/19/19 Received: 08/19/19 (Continued) Procedure Result Reported Site Urine Culture Final (continued) 08/21/19- 937 1. [facility]ROBACT[facility] BRAAKII (continued) M.I.C. RX --------- ------ Pipercillin/Tazobactam <=4 S Trimethoprim/Sulfamethoxazole <=20 S Amoxicillin/Clavulanic Acid R Aztreonam <=1 S Contact the Microbiology Department for any additional antibiotic reporting. * ML - Main Lab . END OF REPORT DEPARTMENT OF PATHOLOGY, [address] [place] [address] Edwin Chanel M.D. Director [facility] # [id number] Procedures Date Code Description Status 06/16/2019 [id number] Diabetic Retinal Eye Exam Completed 01/28/2019 118525130 Bone Mineral Density Test Completed 01/28/2019 12070040 Mammogram Completed 01/13/2018 08951382 Mammogram Completed 12/25/2017 231772589 Diabetic Retinal Eye Exam Completed 09/27/2016 50298632 Mammogram Completed 04/30/2016 994757693 Bone Mineral Density Test Completed 09/07/2015 38370878 Mammogram Completed 08/22/2014 46413176 Colonoscopy Completed 06/22/2014 23100437 Mammogram Completed 06/18/2013 86051502 Mammogram Completed 10/27/2009 42471142 Colonoscopy Completed Medical Devices Description No Information Available Encounters Type Date Location Provider Dx Diagnosis Office Visit 12/29/2019 [facility] Valerie R26.2 Difficulty in 9:09a [facility]oc[facility] [place] walking, not Hospitalists elsewhere classified D71 Functional disorders of polymorphonuclear neutrophils R52 Pain, unspecified M32.9 Systemic lupus erythematosus, unspecified Office Visit 12/28/2019 [facility] Valerie R26.2 Difficulty in 9:09a [facility]oc[facility] [place] walking, not Hospitalists elsewhere classified R52 Pain, unspecified N18.3 Chronic kidney disease, stage 3 (moderate) M32.9 Systemic lupus erythematosus, unspecified Office Visit 12/27/2019 9:08a [facility] Scott R26.2 Difficulty in [facility]oc[facility] [place], [place] walking, not Hospitalists elsewhere classified N18.3 Chronic kidney disease, stage 3 (moderate) R52 Pain, unspecified M32.9 Systemic lupus erythematosus, unspecified Office Visit 12/26/2019 9:05a [facility] Scott R26.2 Difficulty in [facility]oc[facility] [place], [place] walking, not Hospitalists elsewhere classified G40.909 Epilepsy, unsp, not intractable, without status epilepticus M32.9 Systemic lupus erythematosus, unspecified R52 Pain, unspecified Office Visit 12/25/2019 [facility] D71 Functional disorders 9:05a Assoc,pc [place], [employer] SECURITY CONSULTANT of polymorphonuclear Hospitalists neutrophils R26.2 Difficulty in walking, not elsewhere classified G40.909 Epilepsy, unsp, not intractable, without status epilepticus N18.3 Chronic kidney disease, stage 3 (moderate) Office Visit 12/24/2019 9:04a [facility] N39.0 Urinary tract Assoc,[facility] [place], [employer] SECURITY CONSULTANT infection, site Hospitalists not specified N18.3 Chronic kidney disease, stage 3 (moderate) M32.9 Systemic lupus erythematosus, unspecified G40.909 Epilepsy, unsp, not intractable, without status epilepticus Office Visit 12/22/2019 [facility] Jessica Manjarrez L89.152 Pressure ulcer 8:00a AT [facility] DAISHA Lopez of sacral region, stage 2 Office Visit 12/21/2019 [facility] Jina Sutton, R53.1 Weakness 8:54a Assoc,pc [employer] SECURITY CONSULTANT Hospitalists N39.0 Urinary tract infection, site not specified I12.9 Hypertensive chronic kidney disease w stg 1-4/unsp chr kdny N18.3 Chronic kidney disease, stage 3 (moderate) M32.9 Systemic lupus erythematosus, unspecified Office Visit 10/08/2019 2:00p [facility] Jennifer Zimmer, R21 Rash and other Medicine - N.P. nonspecific skin Ccmob eruption Office Visit 08/26/2019 10:30a [facility] Nabila Barrera, N39.0 Urinary tract [...] 12/25/2019 D71 Functional disorders of Kimmie Ayers, PCI SECURITY CONSULTANT polymorphonuclear neutrophils 12/25/2019 R26.2 Difficulty in walking, not elsewhere Kimmie Shortle, [employer] SECURITY CONSULTANT classified 12/25/2019 G40.909 Epilepsy, unspecified, not Kimmie Shortle, PCI SECURITY CONSULTANT intractable, without status epilepticus 12/25/2019 N18.3 Chronic kidney disease, stage 3 Kimmie Kaplanle, PCI SECURITY CONSULTANT (moderate) 12/24/2019 N39.0 Urinary tract infection, site not Kimmie Ayers, PCI SECURITY CONSULTANT specified 12/24/2019 N18.3 Chronic kidney disease, stage 3 Kimmie Shortle, PCI SECURITY CONSULTANT (moderate) 12/24/2019 M32.9 Systemic lupus erythematosus, Kimmie Ayers, PCI SECURITY CONSULTANT unspecified 12/24/2019 G40.909 Epilepsy, unspecified, not Kimmie Shortle, PCI SECURITY CONSULTANT intractable, without status epilepticus 12/23/2019 N39.0 Urinary tract infection, site not ANALI Gracía specified 12/23/2019 N18.3 Chronic kidney disease, stage [...] status epilepticus 12/21/2019 R53.1 Weakness Jina Lesley, PCI SECURITY CONSULTANT 12/21/2019 N39.0 Urinary tract infection, site not Jina Sutton PCI SECURITY CONSULTANT specified 12/21/2019 I12.9 Hypertensive chronic kidney disease Jina SuttonDAISHA with stage 1 through stage 4 chronic kidney disease, or unspecified chronic kidney disease 12/21/2019 N18.3 Chronic kidney disease, stage 3 Jina Sutton PCI SECURITY CONSULTANT (moderate) 12/21/2019 M32.9 Systemic lupus erythematosus, Jina Sutton, PCI SECURITY CONSULTANT unspecified 10/08/2019 R21 Rash and other nonspecific [...] 11:00 am - Jennifer Zimmer N.P. at [facility]10/08/2019 - Jennifer Zimmer N.P.R21 Rash and other nonspecific skin eruptionNew Medication:Triamcinolone Acetonide 0.1 % - apply twice a day until clearComments:For your rash I have sent a prescription to the pharmacy for Triamcinolone cream. Apply this to the affected areas until clear. If you do not get relief with this, mariama castle contact the office. You may need to see a boathouse keeper. Functional Status Functional Condition Comment Date Status Standard walker is used to ambulate Active Quad cane is used with the left hand to ambulate Active Mental Status Description No Information Available Referrals Description No Information Available
--- OUTSIDE RECORDS SUMMARY | 2020-01-12 20:26 | XMS REPORT | Continuity of Care Document ---
:1960 External Reference #:[id number] Author Name ANALI García (transmitted by agent of provider Jumana Moreno) Address [address] [place] [address] Care Team Providers Name Role Phone Nabila Barrera MD - Internal Care Team Information Interventional Nurse Medicine Jamaal Wynn MD - Internal Medicine Care Team Information Interventional Nurse Mark Thompson MD - Dermatology Care Team Information Interventional Nurse [phone] Cisco Mcfarland - Nurse Care Team Information Interventional Nurse [phone] Practitioner Alonzo Lebron MD - Rheumatology Care Team Information Interventional Nurse Problems Active Problems Provider Date Systemic lupus erythematosus Nabila Barrera M.D. 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 Onset: [...] Note: phenobarb level 26.27 Aug 2017; in [employer] database [address] García most [...] 180tabs Z79.899 Cisco Mcfarland, 200mg by mouth CARE MANAGER Tablets twice a day M32.14 M32.9 Rosuvastatin Calcium 1 tab by mouth 45tabs Niurka Gonzalez, DAISHA 01/19/2019 5mg every other day Tablets at bedtime Amlodipine Besylate Take 1 Tablet By 90tabs I10 Nabila Barrera, 09/16/2018 10mg Mouth Every Day M.D. Tablets Calcium 500+D3 1 tab by mouth 180tabs M85.89 RADHA Maravilla 12/18/2017 twice a day [id number] Tablets Phenobarbital 1 tab by mouth 60tabs [...] Code Status Date Vaccine Reaction Lot # [id number] Given 08/26/2019 Influenza Virus Vaccine, [id number] Quadrivalent ([id number]), Derived From Cell 57360 Given 07/15/2019 Pneumococcal Conjugate Vaccine [id number] Valent For Intramuscular Use 47436 Given 08/27/2018 Influenza Virus Vaccine, Pt. tolerated well. [id number] Quadrivalent, Split, Preservative Free 04711 Given 07/01/2018 Pneumonia Vaccine [id number] 94454 Given 07/17/2017 Influenza Virus Vaccine, Quadrivalent, Split, Preservative Free 69509 Given 07/15/2016 Influenza Virus Vaccine, [id number] Quadrivalent, Split, Preservative Free 10919 Given 08/03/2015 Influenza Virus Vaccine, No reaction noted [id number] Quadrivalent, Split, Preservative Free 61594 Given 06/05/2015 Tdap - Tetanus/Diptheria/Acellular Pertussis 92356 Given 07/21/2014 Influenza Virus Vaccine, [id number] Quadrivalent, Split, Preservative Free 76827 Refused 08/12/2013 Tdap - Tetanus/Diptheria/Acellular Pertussis [id number] Refused 08/12/2013 Flu Vaccine Split Virus Preservative [...] Result H/L Range Note Comp Metabolic 12/21/2019 [facility] Sodium 138 mmol/L Normal 135-145 Panel [address] [place] [address] [phone] Potassium 4.2 mmol/L Normal 3.5-5.0 Chloride 104 [...] Egfr 32.7 >60 1 CBC Auto 12/21/2019 [facility] White Blood 3.8 10^3/uL Normal 3.5-10.[address] [place] [address] [phone] Red Blood Count 3.49 10^6/uL Low 3.70-4.87 [...] Blood Cells % 0.1 Urinalysis Profile 12/21/2019 [facility] Urine Color Yellow [address] [place] [address] [phone] Urine Appearance Cloudy Urine Specific [place] 1.010 Normal 1.010-1.030 Urine pH 7.0 Normal [...] 1+ Abnormal Absent Urine Culture And 12/21/2019 [facility] Urine SEE RESULT [address] [place] [place] [address] [phone] CBC Auto Diff 12/15/2019 [facility] White Blood 4.4 10^3/uL Normal 3.5-[address] Count 0.8 [place] [address] [phone] Red Blood Count 3.44 10^6/uL Low 3.70-4.87 [...] Blood Cells % 0.1 Comp Metabolic 12/15/2019 [facility] Sodium 136 mmol/L Normal 135-[address] [place] [address] [phone] Chloride 106 mmol/L Normal 101-111 Co2 Carbon [...] 5 mmol/L Normal 2-11 CBC Auto 08/19/2019 [facility] White Blood 7.4 10^3/uL Normal 3.5-10.[address] [place] [address] [phone] Red Blood Count 3.55 10^6/uL Low 3.70-4.87 [...] Blood Cells % 0.0 Comp Metabolic 08/19/2019 [facility] Sodium 140 mmol/L Normal 135-[address] [place] [address] [phone] Chloride 107 mmol/L Normal 101-111 Co2 Carbon [...] 24 U/L Normal 13-39 Urinalysis Profile 08/19/2019 [facility] Urine Color Yellow [address] [place] [address] [phone] Urine Appearance Cloudy Urine Specific [place] 1.011 Normal 1.010-1.030 Urine pH 7.0 Normal [...] Present Abnormal Absent Urine Culture And 08/19/2019 [facility] Urine Culture SEE RESULT [address] [place] [address] [phone] 1 Because ethnic data is not always [...] [address]: Marko Raygoza MD Acct: [id number] Unit: [id number] AGE: 59 Location: [place] [address] Re12/21/19 SEX: F Status: ADM Dorothy SPEC: [id number] GENET: 12/21/19-[address] [facility] [address]: Ti BRIONES REQ: [id number] RECD: 12/21/19 STATUS: MATTHEW MARTINEZ DR: Nabila Barrera MD _ SOURCE: [facility]: ORDERED: Urine Culture Procedure Result Reported Site Urine Culture Final 12/22/19- 1119 ML Organism 1 STREP GROUP B [place] Count >100,000 (Many) CFU/ML Organism 2 NORMAL PREMA [place] Count 10-25,000 (Moderate) CFU/ML Susceptibility testing of penicillins and other B-lactams approved by FDA for treatment of Streptococcus pyogenes (Group A Strep) and Streptococcus agalactiae (Group B Strep) is not necessary for clinical purposes and need not be done routinely, since as with vancomycin, resistant strains have not been recognized. (CLSI F635-C36;p.66) Positive isolates will be saved for one week. Please call the Microbiology Laboratory if further susceptibility testing is needed. * ML - Main Lab . END OF REPORT DEPARTMENT OF PATHOLOGY, [address] [place] [address] Edwin Chanel M.D. Director [facility] # [id number] 5 Because ethnic data is not always [...] [address]: Magen Christensen MD Acct: [id number] Unit: [id number] AGE: 59 Location: ED Re08/19/19 SEX: F Status: DEP ER SPEC: [id number] GENET: 08/19/[address] [facility] [address]: Magen Christensen MD REQ: [id number] RECD: 08/19/19 STATUS: MATTHEW WATSON DR: Nabila Barrera MD _ SOURCE: URINE [facility]: ORDERED: Urine Culture Procedure Result Reported Site Urine Culture Final 08/21/19937 ML Organism 1 [facility]RO[facility]CT[facility] BRAAK[facility] [place] Count 50-75,000 (Many) CFU/ML Organism 2 STREP GROUP B [place] Count 10-25,000 (Moderate) CFU/ML Susceptibility testing of penicillins and other B-lactams approved by FDA for treatment of Streptococcus pyogenes (Group A Strep) and Streptococcus agalactiae (Group B Strep) is not necessary for clinical purposes and need not be done routinely, since as with vancomycin, resistant strains have not been recognized. (CLSI Z054-V62;p.66) Positive isolates will be saved for one week. Please call the Microbiology Laboratory if further susceptibility testing is needed. 1. [facility] RX --------- ------ Cefazolin >=64 R Cefepime <=1 S Ceftriaxone <=1 S Ciprofloxacin <=0.25 S Gentamicin <=1 S Levofloxacin <=0.12 S Meropenem <=0.25 S Nitrofurantoin <=16 S Tetracycline <=1 S CONTINUED ON NEXT PAGE DEPARTMENT OF PATHOLOGY, [address] [place] [address] Edwin Chanel M.D. Director [facility] # [id number] Specimen: [id number] Collected: 08/19/19 Received: 08/19/19 (Continued) Procedure Result Reported Site Urine Culture Final (continued) 08/21/19- 937 1. [facility] (continued) [facility].I.[facility]. RX --------- ------ Pipercillin/Tazobactam <=4 S Trimethoprim/Sulfamethoxazole <=20 S Amoxicillin/Clavulanic Acid R Aztreonam <=1 S Contact the Microbiology Department for any additional antibiotic reporting. * ML - Main Lab . END OF REPORT DEPARTMENT OF PATHOLOGY, [address] [place] [address] Edwin Chanel M.D. Director [facility] # [id number] Procedures Date Code Description Status 06/16/2019 223458609 Diabetic Retinal Eye Exam Completed 01/28/2019 [id number] Bone Mineral Density Test Completed 01/28/2019 17412424 Mammogram Completed 01/13/2018 94292033 Mammogram Completed 12/25/2017 [id number] Diabetic Retinal Eye Exam Completed 09/27/2016 34930752 Mammogram Completed 04/30/2016 762743058 Bone Mineral Density Test Completed 09/07/2015 91151709 Mammogram Completed 08/22/2014 11516408 Colonoscopy Completed 06/22/2014 87114608 Mammogram Completed 06/18/2013 56374070 Mammogram Completed 10/27/2009 98779091 Colonoscopy Completed Medical Devices Description No Information Available Encounters Type Date Location Provider Dx Diagnosis [facility] Difficult[facility] in 9:09a teodora Toribio, [place] walking, not Hospitalists elsewhere classified D71 Functional disorders of polymorphonuclear neutrophils R52 Pain, unspecified M32.9 Systemic lupus erythematosus, unspecified Office Visit 12/27/2019 9:08a [facility] Scott R26.2 Difficulty in Assoc,pc [place], [place] walking, not Hospitalists elsewhere classified N18.3 Chronic kidney disease, stage 3 (moderate) R52 Pain, unspecified M32.9 Systemic lupus erythematosus, unspecified Office Visit 12/26/2019 9:05a 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 Functional disorders 9:05a Assoc,pc Armen, RADIO INSTALLER of polymorphonuclear Hospitalists neutrophils R26.2 Difficulty in walking, not elsewhere classified G40.909 Epilepsy, unsp, not intractable, without status epilepticus N18.3 Chronic kidney disease, stage 3 (moderate) Office Visit 12/24/2019 9:04a [facility] N39.0 Urinary tract Assoc,pc Armen, RADIO INSTALLER infection, site Hospitalists not specified N18.3 Chronic kidney disease, stage 3 (moderate) M32.9 Systemic lupus erythematosus, unspecified G40.909 Epilepsy, unsp, not intractable, without status epilepticus Office Visit 12/22/2019 [facility] Jessica Loki L89.152 Pressure ulcer 8:00a [facility] DAISHA Lopez of sacral region, stage 2 Office Visit 12/21/2019 [facility] Jina Sutton, R53.1 Weakness 8:54a Assoc,pc [employer]IO INSTALLER Hospitalists N39.0 Urinary tract infection, site not specified I12.9 Hypertensive chronic kidney disease w stg 1-4/unsp chr kdny N18.3 Chronic kidney disease, stage 3 (moderate) M32.9 Systemic lupus erythematosus, unspecified Office Visit 10/08/2019 2:00p [facility] Internal Jennifer Zimmer, R21 Rash and other Medicine - N.P. nonspecific skin Ccmob eruption Office Visit 08/26/2019 10:30a [facility] Nabila Barrera, N39.0 Urinary tract [...] ANALI García 12/27/2019 M32.9 Systemic lupus erythematosus, ANALI García unspecified 12/26/2019 R26.2 Difficulty in walking, not elsewhere ANALI García classified 12/26/2019 G40.909 Epilepsy, unspecified, not ANALI García intractable, without status epilepticus 12/26/2019 M32.9 Systemic lupus erythematosus, Scott Perez PA unspecified 12/26/2019 R52 Pain, unspecified Scott Perez PA 12/25/2019 D71 Functional disorders of Kimmie Ayers, RADIO INSTALLER polymorphonuclear neutrophils 12/25/2019 R26.2 Difficulty in walking, not elsewhere Kimmie Ayers RADIO INSTALLER classified 12/25/2019 G40.909 Epilepsy, unspecified, not Kimmie Ayers, RADIO INSTALLER intractable, without status epilepticus 12/25/2019 N18.3 Chronic kidney disease, stage 3 Kimmie Kaplannaomi, RADIO INSTALLER (moderate) 12/24/2019 N39.0 Urinary tract infection, site not Kimmie Ayers, RADIO INSTALLER specified 12/24/2019 N18.3 Chronic kidney disease, stage 3 Kimmie Kaplannaomi, RADIO INSTALLER (moderate) 12/24/2019 M32.9 Systemic lupus erythematosus, Kimmie Armen, RADIO INSTALLER unspecified 12/24/2019 G40.909 Epilepsy, unspecified, not Kimmie Ayers, RADIO INSTALLER intractable, without status epilepticus 12/23/2019 N39.0 Urinary [...] Chronic kidney disease, stage 3 Jina Sutton, RADIO INSTALLER (moderate) 12/21/2019 M32.9 Systemic lupus erythematosus, Jina Sutton, RADIO INSTALLER unspecified 10/08/2019 R21 Rash and other nonspecific skin Jennifer Zimmer N.PDandy eruption 08/26/2019 N39.0 Urinary tract infection, site [...] 11:00 am - Jennifer Zimmer N.P. at [facility] Internal Medicine - [facility]10/08/2019 - Jennifer Zimmer NMiguel.R21 Rash and other nonspecific skin eruptionNew Medication:Triamcinolone Acetonide 0.1 % - apply twice a day until clearComments:For your rash I have sent a prescription to the pharmacy for Triamcinolone cream. Apply this to the affected areas until clear. If you do not get relief with this, mariama castle contact the office. You may need to see a school physical therapist. Functional Status Functional Condition Comment Date Status Standard walker is used to ambulate Active Quad cane is used with the left hand to ambulate Active Mental Status Description No Information Available Referrals Description No Information Available
--- OUTSIDE RECORDS SUMMARY | 2020-01-12 20:26 | XMS REPORT | Continuity of Care Document ---
:1960 External Reference #:[id number] Author Name Kimmie Ayers NP (transmitted by agent of provider Jumana Moreno) Address [address] [place] [address] Care Team Providers Name Role Phone Nabila Barrera MD - Internal Care Team Information Golf Ball Inspector [phone] Medicine Jamaal Wynn MD - Internal Medicine Care Team Information Golf Ball Inspector [phone] Mark Thompson MD - Dermatology Care Team Information Golf Ball Inspector [phone] Cisco Mcfarland - Nurse Care Team Information Golf Ball Inspector [phone] Practitioner Alonzo Lebron MD - Rheumatology Care Team Information Golf Ball Inspector Problems Active Problems Provider Date Systemic lupus erythematosus Nabila Barrera M.D. 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 Onset: [...] Note: phenobarb level 26.27 Aug 2017; in BLOCKING MACHINE TENDER database [address] García most [...] 180tabs Z79.899 Cisco Mcfarland, 200mg by mouth REAL ESTATE BRANCH MANAGER Tablets twice a day M32.14 M32.9 Rosuvastatin Calcium 1 tab by mouth 45tabs Niurka Gonzalez, DAISHA 01/19/2019 5mg every other day Tablets at bedtime Amlodipine Besylate Take 1 Tablet By 90tabs I10 Nabila Barrera, 09/16/2018 10mg Mouth Every Day M.D. Tablets Calcium 500+D3 1 tab by mouth 180tabs M85.89 Cisco Mcfarland, REAL ESTATE BRANCH MANAGER 12/18/2017 twice a day 212-190jf-Lvoh Tablets Phenobarbital 1 tab by mouth 60tabs [...] Code Status Date Vaccine Reaction Lot # [id number] Given 08/26/2019 Influenza Virus Vaccine, [id number] Quadrivalent ([id number]), Derived From Cell 08460 Given 07/15/2019 Pneumococcal Conjugate Vaccine [id number] Valent For Intramuscular Use 00785 Given 08/27/2018 Influenza Virus Vaccine, Pt. tolerated well. [id number] Quadrivalent, Split, Preservative Free 33756 Given 07/01/2018 Pneumonia Vaccine [id number] 98536 Given 07/17/2017 Influenza Virus Vaccine, Quadrivalent, Split, Preservative Free 81664 Given 07/15/2016 Influenza Virus Vaccine, [id number] Quadrivalent, Split, Preservative Free 23756 Given 08/03/2015 Influenza Virus Vaccine, No reaction noted [id number] Quadrivalent, Split, Preservative Free 01659 Given 06/05/2015 Tdap - Tetanus/Diptheria/Acellular Pertussis 17575 Given 07/21/2014 Influenza Virus Vaccine, [id number] Quadrivalent, Split, Preservative Free [id number] Refused 08/12/2013 Tdap - Tetanus/Diptheria/Acellular Pertussis 69486 Refused 08/12/2013 Flu Vaccine Split Virus Preservative [...] Result H/L Range Note Comp Metabolic 12/21/2019 [facility] Sodium 138 mmol/L Normal 135-145 Panel [address] [place] [address] [phone] Potassium 4.2 mmol/L Normal 3.5-5.0 Chloride 104 [...] Egfr 32.7 >60 1 CBC Auto 12/21/2019 [facility] White Blood 3.8 10^3/uL Normal 3.5-10.[address] [place] [address] [phone] Red Blood Count 3.49 10^6/uL Low 3.70-4.87 [...] Blood Cells % 0.1 Urinalysis Profile 12/21/2019 [facility] Urine Color Yellow [address] [place] [address] [phone] Urine Appearance Cloudy Urine Specific [place] 1.010 Normal 1.010-1.030 Urine pH 7.0 Normal [...] 1+ Abnormal Absent Urine Culture And 12/21/2019 [facility] Urine SEE RESULT [address] [place] [address] [phone] CBC Auto Diff 12/15/2019 [facility] White Blood 4.4 10^3/uL Normal 3.5-[address] Count 0.8 [place] [address] [phone] Red Blood Count 3.44 10^6/uL Low 3.70-4.87 [...] Blood Cells % 0.1 Comp Metabolic 12/15/2019 [facility] Sodium 136 mmol/L Normal 135-[address] [place] [address] [phone] Chloride 106 mmol/L Normal 101-111 Co2 Carbon [...] 5 mmol/L Normal 2-11 CBC Auto 08/19/2019 [facility] White Blood 7.4 10^3/uL Normal 3.5-10.[address] [place] [address] [phone] Red Blood Count 3.55 10^6/uL Low 3.70-4.87 [...] Blood Cells % 0.0 Comp Metabolic 08/19/2019 [facility] Sodium 140 mmol/L Normal 135-[address] [place] [address] [phone] Chloride 107 mmol/L Normal 101-111 Co2 Carbon [...] 24 U/L Normal 13-39 Urinalysis Profile 08/19/2019 [facility] Urine Color Yellow [address] [place] [address] [phone] Urine Appearance Cloudy Urine Specific [place] 1.011 Normal 1.010-1.030 Urine pH 7.0 Normal [...] Present Abnormal Absent Urine Culture And 08/19/2019 [facility] Urine Culture SEE RESULT [address] [place] [address] [phone] 1 Because ethnic data is not always [...] [address]: Marko Raygoza MD Acct: [id number] Unit: [id number] AGE: 59 Location: [place] [address] Re12/21/19 SEX: F Status: ADM Dorothy SPEC: [id number] GENET: 12/21/[address] [facility] DR: Ti BRIONES REQ: [id number] RECD: 12/21/19 STATUS: MATTHEW MARTINEZ DR: Nabila Barrera MD _ SOURCE: URINE SPDESC: ORDERED: Urine Culture Procedure Result Reported Site Urine Culture Final 12/22/19- 1119 ML Organism 1 STREP GROUP B [place] Count >100,000 (Many) CFU/ML Organism 2 NORMAL PREMA [place] Count 10-25,000 (Moderate) CFU/ML Susceptibility testing of penicillins and other B-lactams approved by FDA for treatment of Streptococcus pyogenes (Group A Strep) and Streptococcus agalactiae (Group B Strep) is not necessary for clinical purposes and need not be done routinely, since as with vancomycin, resistant strains have not been recognized. (CLSI Y934-B09;p.66) Positive isolates will be saved for one week. Please call the Microbiology Laboratory if further susceptibility testing is needed. * ML - Main Lab . END OF REPORT DEPARTMENT OF PATHOLOGY, [address] [place] [address] Edwin Chanel M.D. Director [facility] # [id number] 5 Because ethnic data is not always [...] [address]: Magen Christensen MD Acct: [id number] Unit: [id number] AGE: 59 Location: ED Re08/19/19 SEX: F Status: DEP ER SPEC: [id number] GENET: 08/19/19 [facility] [address]: Magen Christensen MD REQ: [id number] RECD: 08/19/19 STATUS: COMP MICHELLE DR: Nabila Barrera MD _ SOURCE: URINE SPDESC: ORDERED: Urine Culture Procedure Result Reported Site Urine Culture Final 08/21/19- 38 ML Organism 1 [facility] [place] Count 50-75,000 (Many) CFU/ML Organism 2 STREP GROUP B [place] Count 10-25,000 (Moderate) CFU/ML Susceptibility testing of penicillins and other B-lactams approved by FDA for treatment of Streptococcus pyogenes (Group A Strep) and Streptococcus agalactiae (Group B Strep) is not necessary for clinical purposes and need not be done routinely, since as with vancomycin, resistant strains have not been recognized. (CLSI P957-X55;p.66) Positive isolates will be saved for one week. Please call the Microbiology Laboratory if further susceptibility testing is needed. 1. [facility] M.I.C. RX --------- ------ Cefazolin >=64 R Cefepime <=1 S Ceftriaxone <=1 S Ciprofloxacin <=0.25 S Gentamicin <=1 S Levofloxacin <=0.12 S Meropenem <=0.25 S Nitrofurantoin <=16 S Tetracycline <=1 S CONTINUED ON NEXT PAGE DEPARTMENT OF PATHOLOGY, [address] [place] [address] Edwin Chanel M.D. Director [facility] # [id number] Specimen: [id number] Collected: 08/19/19 Received: 08/19/19 (Continued) Procedure Result Reported Site Urine Culture Final (continued) 08/21/19- 937 1. [facility] (continued) M.I.C. RX --------- ------ Pipercillin/Tazobactam <=4 S Trimethoprim/Sulfamethoxazole <=20 S Amoxicillin/Clavulanic Acid R Aztreonam <=1 S Contact the Microbiology Department for any additional antibiotic reporting. * ML - Main Lab . END OF REPORT DEPARTMENT OF PATHOLOGY, [address] [place] [address] Edwin Chanel M.D. Director [facility] # [id number] Procedures Date Code Description Status 06/16/2019 340497948 Diabetic Retinal Eye Exam Completed 01/28/2019 678631556 Bone Mineral Density Test Completed 01/28/2019 52256400 Mammogram Completed 01/13/2018 96001353 Mammogram Completed 12/25/2017 125554538 Diabetic Retinal Eye Exam Completed 09/27/2016 48527360 Mammogram Completed 04/30/2016 563767268 Bone Mineral Density Test Completed 09/07/2015 40290098 Mammogram Completed 08/22/2014 26366980 Colonoscopy Completed 06/22/2014 [id number] Mammogram Completed 06/18/2013 04629889 Mammogram Completed 10/27/2009 46101162 Colonoscopy Completed Medical Devices Description No Information Available Encounters Type Date Location Provider Dx Diagnosis Office Visit 12/29/2019 [facility] Valerie R26.2 Difficulty in 9:09a [facility] [place] walking, not Hospitalists elsewhere classified D71 Functional disorders of polymorphonuclear neutrophils R52 Pain, unspecified M32.9 Systemic lupus erythematosus, unspecified Office Visit 12/28/2019 [facility] Valerie R26.2 Difficulty in 9:09a [facility] [place] walking, not Hospitalists elsewhere classified R52 Pain, unspecified N18.3 Chronic kidney disease, stage 3 (moderate) M32.9 Systemic lupus erythematosus, unspecified Office Visit 12/27/2019 9:08a [facility] Scott R26.2 Difficulty in [facility] [place], [place] walking, not Hospitalists elsewhere classified N18.3 Chronic kidney disease, stage 3 (moderate) R52 Pain, unspecified M32.9 Systemic lupus erythematosus, unspecified Office Visit 12/26/2019 9:05a [facility] Scott R26.2 Difficulty in [facility] [place], [place] walking, not Hospitalists elsewhere classified G40.909 Epilepsy, unsp, not intractable, without status epilepticus M32.9 Systemic lupus erythematosus, unspecified R52 Pain, unspecified Office Visit 12/25/2019 [facility] D71 Functional disorders 9:05a Assoc,[facility] Armen, REAGENT TENDER of polymorphonuclear Hospitalists neutrophils R26.2 Difficulty in walking, not elsewhere classified G40.909 Epilepsy, unsp, not intractable, without status epilepticus N18.3 Chronic kidney disease, stage 3 (moderate) Office Visit 12/24/2019 9:04a [facility] N39.0 Urinary tract Assoc,[facility] Armen, REAGENT TENDER infection, site Hospitalists not specified N18.3 Chronic kidney disease, stage 3 (moderate) M32.9 Systemic lupus erythematosus, unspecified G40.909 Epilepsy, unsp, not intractable, without status epilepticus Office Visit 12/22/2019 [facility] Jessica Manjarrez L89.152 Pressure ulcer 8:00a AT [facility] DAISHA Lopez of sacral region, stage 2 Office Visit 12/21/2019 [facility] Jina Sutton, R53.1 Weakness 8:54a Assoc,pc REAGENT TENDER Hospitalists N39.0 Urinary tract infection, site not specified I12.9 Hypertensive chronic kidney disease w stg 1-4/unsp chr kdny N18.3 Chronic kidney disease, stage 3 (moderate) M32.9 Systemic lupus erythematosus, unspecified Office Visit 10/08/2019 2:00p [facility] Internal Jennifer Zimmer, R21 Rash and other Medicine - N.P. nonspecific skin Ccmob eruption Office Visit 08/26/2019 10:30a [facility] Internal Nabila Barrera, N39.0 Urinary [...] 12/25/2019 D71 Functional disorders of Kimmie Ayers, REAGENT TENDER polymorphonuclear neutrophils 12/25/2019 R26.2 Difficulty in walking, not elsewhere Kimmie Shortle, REAGENT TENDER classified 12/25/2019 G40.909 Epilepsy, unspecified, not Kimmie Shortle, REAGENT TENDER intractable, without status epilepticus 12/25/2019 N18.3 Chronic kidney disease, stage 3 Kimmie Kaplanle, REAGENT TENDER (moderate) 12/24/2019 N39.0 Urinary tract infection, site not Kimmie Ayers, REAGENT TENDER specified 12/24/2019 N18.3 Chronic kidney disease, stage 3 Kimmie Shortle, REAGENT TENDER (moderate) 12/24/2019 M32.9 Systemic lupus erythematosus, Kimmie Ayers, REAGENT TENDER unspecified 12/24/2019 G40.909 Epilepsy, unspecified, not Kimmie Shortle, REAGENT TENDER intractable, without status epilepticus 12/23/2019 N39.0 Urinary [...] status epilepticus 12/21/2019 R53.1 Weakness Jina Lesley, REAGENT TENDER 12/21/2019 N39.0 Urinary tract infection, site not Jina Sutton REAGENT TENDER specified 12/21/2019 I12.9 Hypertensive chronic kidney disease Jina SuttonDAISHA with stage 1 through stage 4 chronic kidney disease, or unspecified chronic kidney disease 12/21/2019 N18.3 Chronic kidney disease, stage 3 Jina Sutton REAGENT TENDER (moderate) 12/21/2019 M32.9 Systemic lupus erythematosus, Jina Sutton, REAGENT TENDER unspecified 10/08/2019 R21 Rash and other nonspecific [...] 11:00 am - Jennifer Zimmer N.P. at [facility] Internal Medicine - [facility]10/08/2019 - Jennifer Zimmer N.P.R21 Rash and other nonspecific skin eruptionNew Medication:Triamcinolone Acetonide 0.1 % - apply twice a day until clearComments:For your rash I have sent a prescription to the pharmacy for Triamcinolone cream. Apply this to the affected areas until clear. If you do not get relief with this, mariama castle contact the office. You may need to see a manager creative services. Functional Status Functional Condition Comment Date Status Standard walker is used to ambulate Active Quad cane is used with the left hand to ambulate Active Mental Status Description No Information Available Referrals Description No Information Available
--- OUTSIDE RECORDS SUMMARY | 2020-01-12 20:27 | XMS REPORT | Continuity of Care Document ---
:1960 External Reference #:[id number] Author Name ANALI García (transmitted by agent of provider Jumana Moreno) Address [address] [place] [address] Care Team Providers Name Role Phone Nabila Barrera MD - Internal Care Team Information Supervisor Brine [phone] Medicine Jamaal Wynn MD - Internal Medicine Care Team Information Supervisor Brine [phone] Mark Thompson MD - Dermatology Care Team Information Supervisor Brine [phone] Cisco Mcfarland - Nurse Care Team Information Supervisor Brine [phone] Practitioner Alonzo Lebron MD - Rheumatology Care Team Information Supervisor Brine [phone] Problems Active Problems Provider Date Systemic lupus erythematosus Nabila Barrera M.D. 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 Tablets Calcium 500+D3 1 tab by mouth 180tabs M85.89 RADHA Maravilla 12/18/2017 twice a day [id number] Tablets Phenobarbital 1 tab by mouth 60tabs [...] Code Status Date Vaccine Reaction Lot # [id number] Given 08/26/2019 Influenza Virus Vaccine, [id number] Quadrivalent ([id number]), Derived From Cell 30724 Given 07/15/2019 Pneumococcal Conjugate Vaccine [id number] Valent For Intramuscular Use 22845 Given 08/27/2018 Influenza Virus Vaccine, Pt. tolerated well. [id number] Quadrivalent, Split, Preservative Free 72562 Given 07/01/2018 Pneumonia Vaccine [id number] 74987 Given 07/17/2017 Influenza Virus Vaccine, Quadrivalent, Split, Preservative Free 05226 Given 07/15/2016 Influenza Virus Vaccine, [id number] Quadrivalent, Split, Preservative Free 10074 Given 08/03/2015 Influenza Virus Vaccine, No reaction noted [id number] Quadrivalent, Split, Preservative Free 61459 Given 06/05/2015 Tdap - Tetanus/Diptheria/Acellular Pertussis 90642 Given 07/21/2014 Influenza Virus Vaccine, [id number] Quadrivalent, Split, Preservative Free 33765 Refused 08/12/2013 Tdap - Tetanus/Diptheria/Acellular Pertussis 89454 Refused 08/12/2013 Flu Vaccine Split Virus Preservative [...] Result H/L Range Note Comp Metabolic 12/21/2019 [facility] Sodium 138 mmol/L Normal 135-145 Panel [address] [place] [address] [phone] Potassium 4.2 mmol/L Normal 3.5-5.0 Chloride 104 [...] Egfr 32.7 >60 1 CBC Auto 12/21/2019 [facility] White Blood 3.8 10^3/uL Normal 3.5-10.[address] [place] [address] [phone] Red Blood Count 3.49 10^6/uL Low 3.70-4.87 [...] Blood Cells % 0.1 Urinalysis Profile 12/21/2019 [facility] Urine Color Yellow [address] [place] [address] [phone] Urine Appearance Cloudy Urine Specific [place] 1.010 Normal 1.010-1.030 Urine pH 7.0 Normal [...] 1+ Abnormal Absent Urine Culture And 12/21/2019 [facility] Urine SEE RESULT [address] [place] [place] [address] [phone] CBC Auto Diff 12/15/2019 [facility] White Blood 4.4 10^3/uL Normal 3.5-[address] Count 0.8 [place] [address] [phone] Red Blood Count 3.44 10^6/uL Low 3.70-4.87 [...] Blood Cells % 0.1 Comp Metabolic 12/15/2019 [facility] Sodium 136 mmol/L Normal 135-[address] [place] [address] [phone] Chloride 106 mmol/L Normal 101-111 Co2 Carbon [...] 5 mmol/L Normal 2-11 CBC Auto 08/19/2019 [facility] White Blood 7.4 10^3/uL Normal 3.5-10.[address] [place] [address] [phone] Red Blood Count 3.55 10^6/uL Low 3.70-4.87 [...] Blood Cells % 0.0 Comp Metabolic 08/19/2019 [facility] Sodium 140 mmol/L Normal 135-[address] [place] [address] [phone] Chloride 107 mmol/L Normal 101-111 Co2 Carbon [...] 24 U/L Normal 13-39 Urinalysis Profile 08/19/2019 [facility] Urine Color Yellow [address] [place] [address] [phone] Urine Appearance Cloudy Urine Specific [place] 1.011 Normal 1.010-1.030 Urine pH 7.0 Normal [...] Present Abnormal Absent Urine Culture And 08/19/2019 [facility] Urine Culture SEE RESULT [address] [place] [address] [phone] 1 Because ethnic data is not always [...] [address]: Marko Raygoza MD Acct: [id number] Unit: [id number] AGE: 59 Location: [place] [address] Re12/21/19 SEX: F Status: ADM Dorothy SPEC: [id number] GENET: 12/21/19-[address] [facility] [address]: Ti BRIONES REQ: [id number] RECD: 12/21/19 STATUS: MATTHEW MARTINEZ DR: Nabila Barrera MD _ S[facility]: Urine Culture Procedure Result Reported Site Urine Culture Final 12/22/19- 1119 ML Organism 1 STREP GROUP B [place] Count >100,000 (Many) CFU/ML Organism 2 NORMAL PREMA [place] Count 10-25,000 (Moderate) CFU/ML Susceptibility testing of penicillins and other B-lactams approved by FDA for treatment of Streptococcus pyogenes (Group A Strep) and Streptococcus agalactiae (Group B Strep) is not necessary for clinical purposes and need not be done routinely, since as with vancomycin, resistant strains have not been recognized. (CLSI U431-O57;p.66) Positive isolates will be saved for one week. Please call the Microbiology Laboratory if further susceptibility testing is needed. * ML - Main Lab . END OF REPORT DEPARTMENT OF PATHOLOGY, [address] [place] [address] Edwin Chanel M.D. Director [facility] # [id number] 5 Because ethnic data is not always [...] [address]: Magen Christensen MD Acct: [id number] Unit: [id number] AGE: 59 Location: ED Re08/19/19 SEX: F Status: DEP ER SPEC: [id number] GENET: 08/19/[address] [facility] [address]: Magen Christensen MD REQ: [id number] RECD: 08/19/19 STATUS: MATTHEW WATSON DR: Nabila Barrera MD _ SOURCE: URINE SPDESC: ORDERED: Urine Culture Procedure Result Reported Site Urine Culture Final 08/21/19937 ML Organism 1 [facility] BRAAK[facility] [place] Count 50-75,000 (Many) CFU/ML Organism 2 STREP GROUP B [place] Count 10-25,000 (Moderate) CFU/ML Susceptibility testing of penicillins and other B-lactams approved by FDA for treatment of Streptococcus pyogenes (Group A Strep) and Streptococcus agalactiae (Group B Strep) is not necessary for clinical purposes and need not be done routinely, since as with vancomycin, resistant strains have not been recognized. (CLSI W501-C15;p.66) Positive isolates will be saved for one week. Please call the Microbiology Laboratory if further susceptibility testing is needed. 1. [facility] RX --------- ------ Cefazolin >=64 R Cefepime <=1 S Ceftriaxone <=1 S Ciprofloxacin <=0.25 S Gentamicin <=1 S Levofloxacin <=0.12 S Meropenem <=0.25 S Nitrofurantoin <=16 S Tetracycline <=1 S CONTINUED ON NEXT PAGE DEPARTMENT OF PATHOLOGY, [address] [place] [address] Edwin Chanel M.D. Director [facility] # [id number] Specimen: [id number] Collected: 08/19/19 Received: 08/19/19 (Continued) Procedure Result Reported Site Urine Culture Final (continued) 08/21/19- 937 1. [facility] BRAAKII (continued) M.I.C. RX --------- ------ Pipercillin/Tazobactam <=4 S Trimethoprim/Sulfamethoxazole <=20 S Amoxicillin/Clavulanic Acid R Aztreonam <=1 S Contact the Microbiology Department for any additional antibiotic reporting. * ML - Main Lab . END OF REPORT DEPARTMENT OF PATHOLOGY, [address] [place] [address] Edwin Chanel M.D. Director [facility] # [id number] Procedures Date Code Description Status 06/16/2019 621610816 Diabetic Retinal Eye Exam Completed 01/28/2019 384170492 Bone Mineral Density Test Completed 01/28/2019 [id number] Mammogram Completed 01/13/2018 85188658 Mammogram Completed 12/25/2017 207550905 Diabetic Retinal Eye Exam Completed 09/27/2016 59053638 Mammogram Completed 04/30/2016 921661725 Bone Mineral Density Test Completed 09/07/2015 39595078 Mammogram Completed 08/22/2014 45171820 Colonoscopy Completed 06/22/2014 45924439 Mammogram Completed 06/18/2013 01787088 Mammogram Completed 10/27/2009 50787377 Colonoscopy Completed Medical Devices Description No Information Available Encounters Type Date Location Provider Dx Diagnosis [facility]icult[facility] in 9:09a teodora Toribio, [place] walking, not Hospitalists elsewhere classified D71 Functional disorders of polymorphonuclear neutrophils R52 Pain, unspecified M32.9 Systemic lupus erythematosus, unspecified Office Visit 12/26/2019 9:05a [facility] Scott R26.2 Difficulty in Assoc,pc [place] walking, not Hospitalists elsewhere classified G40.909 Epilepsy, unsp, not intractable, without status epilepticus M32.9 Systemic lupus erythematosus, unspecified R52 Pain, unspecified Office Visit 12/25/2019 [facility] D71 Functional disorders 9:05a Assoc,pc Armen, NUCLEAR MEDICINE MEDICAL DIRECTOR of polymorphonuclear Hospitalists neutrophils R26.2 Difficulty in walking, not elsewhere classified G40.909 Epilepsy, unsp, not intractable, without status epilepticus N18.3 Chronic kidney disease, stage 3 (moderate) Office Visit 12/24/2019 9:04a [facility] N39.0 Urinary tract Assoc,pc Armen NUCLEAR MEDICINE MEDICAL DIRECTOR infection, site Hospitalists not specified N18.3 Chronic kidney disease, stage 3 (moderate) M32.9 Systemic lupus erythematosus, unspecified G40.909 Epilepsy, unsp, not intractable, without status epilepticus Office Visit 12/22/2019 [facility] Jessica Loki L89.152 Pressure ulcer 8:00a [place] [facility] of sacral region, stage 2 Office Visit 12/21/2019 [facility] Jina Sutton, R53.1 Weakness 8:54a Assoc,pc NUCLEAR MEDICINE MEDICAL DIRECTOR Hospitalists N39.0 Urinary tract infection, site not specified I12.9 Hypertensive chronic kidney disease w stg 1-4/unsp chr kdny N18.3 Chronic kidney disease, stage 3 (moderate) M32.9 Systemic lupus erythematosus, unspecified Office Visit 10/08/2019 2:00p [facility] Jennifer Zimmer, R21 Rash and other Medicine - N.P. nonspecific skin Ccmob eruption Office Visit 08/26/2019 10:30a [facility] Nabila Barrera, N39.0 Urinary tract Medicine - M.D. 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 12/30/2019 G40.909 Epilepsy, unspecified, not Valerie Wylie PA intractable, without status epilepticus 12/29/2019 R26.2 Difficulty in walking, not elsewhere Valerie Wylie PA classified 12/29/2019 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 12/29/2019 R52 Pain, unspecified Valerie [...] PA (moderate) 12/27/2019 R52 Pain, unspecified [place], [place] 12/27/2019 M32.9 Systemic lupus erythematosus, [place], [place] unspecified 12/26/2019 R26.2 Difficulty in walking, not elsewhere [place], [place] classified 12/26/2019 G40.909 Epilepsy, unspecified, not Scott [place], [place] intractable, without status epilepticus 12/26/2019 M32.9 Systemic lupus erythematosus, Sctot [place], [place] unspecified 12/26/2019 R52 Pain, unspecified Scott [place], [place] 12/25/2019 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 Functional disorders of Kimmie Ayers, NUCLEAR MEDICINE MEDICAL DIRECTOR polymorphonuclear neutrophils 12/25/2019 R26.2 Difficulty in walking, not elsewhere Kimmie Ayers NUCLEAR MEDICINE MEDICAL DIRECTOR classified 12/25/2019 G40.909 Epilepsy, unspecified, not Kimmie Shortle, NUCLEAR MEDICINE MEDICAL DIRECTOR intractable, without status epilepticus 12/25/2019 N18.3 Chronic kidney disease, stage 3 Kimmie Ayers, NUCLEAR MEDICINE MEDICAL DIRECTOR (moderate) 12/24/2019 N39.0 Urinary tract infection, site not Kimmie Ayers NUCLEAR MEDICINE MEDICAL DIRECTOR specified 12/24/2019 N18.3 Chronic kidney disease, stage 3 Kimmie Ayers, NUCLEAR MEDICINE MEDICAL DIRECTOR (moderate) 12/24/2019 M32.9 Systemic lupus erythematosus, Kimmieedelmira Ayers, NUCLEAR MEDICINE MEDICAL DIRECTOR unspecified 12/24/2019 G40.909 Epilepsy, unspecified, not Kimmie Shortle, NUCLEAR MEDICINE MEDICAL DIRECTOR intractable, without status epilepticus 12/23/2019 N39.0 Urinary [...] M.D. 08/26/2019 K59.03 Drug induced constipation Nabila Brarera M.D. 08/26/2019 M79.671 Pain in right foot [...] 11:00 am - Jennifer Zimmer N.P. at [facility] - Jennifer Zimmer N.P.R21 Rash and other nonspecific skin eruptionNew Medication:Triamcinolone Acetonide 0.1 % - apply twice a day until clearComments:For your rash I have sent a prescription to the pharmacy for Triamcinolone cream. Apply this to the affected areas until clear. If you do not get relief with this, mariama castle contact the office. You may need to see a bottom turning lathe turner. Functional Status Functional Condition Comment Date Status Standard walker is used to ambulate Active Quad cane is used with the left hand to ambulate Active Mental Status Description No Information Available Referrals Description No Information Available
--- OUTSIDE RECORDS SUMMARY | 2020-01-12 20:27 | XMS REPORT ---
:1960 Author Organization [facility] Care Team Providers Name Role Phone Unavailable Unavailable Unavailable Problems Condition Condition Condition Status Onset Resolution Last Treating Comments Name Details Category Date Date Treatment Clinician Date Systemic Systemic Diagnosis Active 2016-10 Jenelle lupus lupus 10-27 Wing erythematos erythematos [id number] us, us, unspecified unspecified Pain in Pain in Diagnosis Active 2016-10 Jenelle right arm right arm 10-27 Wing [id number] Pain in Pain in Diagnosis Active 2016-10 Jenelle right lower right lower 10-27 Wing leg leg [id number] Contracture Contracture Diagnosis Active Jenelle , right , 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 [id number] Urinary Urinary Diagnosis Active 2016-10 Jenelle tract tract 11-03 Wing infection, infection, [id number] site not site not specified specified Hypertensiv Hypertensiv Diagnosis Active 2016-10 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 1-4/unsp chr kdny chr kdny 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, disease, [id number] stage 2 stage 2 (mild) (mild) 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, disorder, [id number] single single episode, episode, unspecified unspecified Spinal Spinal Diagnosis Active Jenelle stenosis, stenosis, Wing site site [id number] unspecified unspecified 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, hip joint, 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 bilateral bilateral Epilepsy, Epilepsy, Diagnosis Active Jenelle unsp, not unsp, not Wing intractable intractable [id number] , without , without status status epilepticus epilepticus 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 [id number] Pain frequent Pain Mgmt Resolve 2016-102019-04-23 Maria A pain d 11-03 15:40:00 Jaquan 14:09: [id number] 00 Nutrition nutritional Nutrition Resolve 2016-102017-09-30 Maria A restriction d 11-03 14:00:00 Jaquan s 14:09: [id number] 00 Elimination knowledge/s Eliminatio Resolve 2016-102017-09-30 Maria A kill n d 11-03 14:00:00 Jaquan deficit: pt 14:09: [id number] 00 Elimination urinary Eliminatio Resolve 2016-102017-09-30 Maria A incontinenc n d 11-03 14:00:00 Jaquan e 14:09: [id number] 00 Elimination UTI within Eliminatio Resolve 2016-102017-09-30 Maria A past 14 n d 11-03 14:00:00 Jaquan days 14:09: [id number] 00 Activity ADL Activity Unknown 2016-10 Quality assistance 11-03 Realtime required 14:09: 00 Safety risk for Safety Resolve 2016-102017-09-23 Maria A hospitaliza d 11-03 09:45:00 Jaquan tion 14:09: [id number] 00 Medication potential Meds Resolve 2016-102017-10-02 Maria A clinically d 11-03 13:30:00 Jaquan significant 14:09: [id number] medication 00 issue Medication oral med Meds Resolve 2016-102017-10-02 Maria A assistance d 11-03 13:30:00 Jaquan required 14:09: [id number] 00 Elimination recurring Eliminatio Resolve 2016-102017-09-30 Maria A UTI n d 11-10 14:00:00 Jaquan 14:00: [id number] 00 Safety risk for Safety Resolve 2016-102017-09-30 Maria A hospitaliza d 11-25 14:00:00 Jaquan tion 11:04: [id number] 00 Nutrition nutritional Nutrition Resolve 2016-102017-10-07 Maria A restriction d 12-03 11:06:00 Jaquan s 13:30: [id number] 00 Elimination urinary Eliminatio Resolve 2016-102017-10-02 Maria A incontinenc n d 12-03 13:30:00 Jaquan e 13:30: [id number] 00 Safety risk for Safety Resolve 2016-102017-10-07 Maria A hospitaliza d 12-03 11:06:00 Jaquan tion 13:30: [id number] 00 Elimination urinary Eliminatio Resolve 2016-102017-10-28 Maria A incontinenc n d 12-22 09:32:00 Jaquan e 10:14: [id number] 00 Elimination constipatio Eliminatio Resolve 2016-102017-10-28 Maria A n n d 12-22 09:32:00 Jaquan 10:14: [id number] 00 Pain frequent Pain Mgmt Unknown Maria A pain 10-28 Jaquan 09:32: [id number] 00 Activity ADL Activity Resolve 2018-02-10 Maria A assistance d 10-28 11:05:00 Jaquan required 09:32: [id number] 00 Elimination urinary Eliminatio Resolve 2017-12-17 Mehnaz incontinenc n d 11-04 11:35:00 Ugalde e 13:15: [id number] 00 Safety risk for Safety Active Mehnaz hospitaliza 11-04 Ugalde tion 13:15: [id number] 00 Safety can be left Safety Active Mehnaz alone for 11-04 Ugalde only short 13:15: [id number] periods 00 Elimination urinary Eliminatio Resolve 2018-02-26 Maria A incontinenc n d 12-31 12:00:00 Jaquan e 10:00: [id number] 00 Medication oral med Meds Resolve 2018-02-26 Maria A assistance d 12-31 12:00:00 Jaquan required 10:00: [id number] 00 Medication injectable Meds Resolve 2018-02-26 Maria A med d 12-31 12:00:00 Jaquan assistance 10:00: [id number] required 00 Elimination constipatio Eliminatio Resolve 2018-02-26 Maria A n n d 01-20 12:00:00 Jaquan 11:19: [id number] 00 Safety fire risk Safety Active Maria A present 04-11 Eliz 12:00: [id number] 00 Elimination urinary Eliminatio Resolve 2018-09-03 Maria A incontinenc n d 04-16 11:30:00 Eliz e 11:56: [id number] 00 Medication oral med Meds Resolve 2018-12-24 Maria A assistance d 04-16 13:24:00 [place] required 11:56: [id number] 00 Safety fall risk Safety Active Maria A factor 06-25 [place]well present 14:00: [id number] 00 Pain frequent Pain Mgmt Unknown 2017-10 Maria A pain 10-28 Eliz 13:00: [id number] 00 Endo/López anti-coagul Endo/López Resolve 2017-102019-06-24 Maria A ation d 11-03 13:34:00 Farwell therapy 11:30: [id number] 00 Elimination urinary Eliminatio Resolve 2017-102019-02-22 Maria A incontinenc n d 14:30:00 Eliz e 14:34: [id number] 00 Nutrition nutritional Nutrition Active Princess restriction 2-14 Seager s 13:11: [id number] 00 Cardio chest pain Cardiovasc Resolve 2019-09-16 Maria A ular d 12-24 13:52:00 [place] 13:24: [id number] 00 Elimination urinary Eliminatio Resolve 2019-08-19 Maria A incontinenc n d 04-23 13:50:00 Eliz e 15:40: [id number] 00 Safety can be left Safety Unknown Maria A alone for 04-23 Farwell only short 15:40: [id number] periods 00 Pain frequent Pain Mgmt Resolve 2019-06-24 Kaye pain d 16 13:34:00 [place] 09:20: [id number] 00 Elimination UTI within Eliminatio Resolve 2019-08-19 Kaye past 14 n d 06-11 13:50:00 [place] days 09:20: [id number] 00 Elimination bowel Eliminatio Resolve 2019-08-19 Kaye incontinenc n d 06-11 13:50:00 Christoph e 09:20: [id number] 00 Neuro confusion Neuro/Emot Active Kaye present ion 06-11 [place] 09:20: [id number] 00 Activity ADL Activity Unknown Kaye assistance 06-11 [place] required 09:20: [id number] 00 Activity self-care Activity Active Kaye deficit 06-11 [place] 09:20: [id number] 00 Medication oral med Meds Resolve 2019-06-24 Kaye assistance d 06-11 13:34:00 [place] required 09:20: [id number] 00 Musculoskel transfer Musculoske Resolve 2019-09-16 Kaye etal assistance letal d 06-11 13:52:00 [place] required 09:20: [id number] 00 Musculoskel requires Musculoske Resolve 2019-09-16 Kaye etal human letal d 06-11 13:52:00 [place] assist to 09:20: [id number] leave home 00 Activity ADL Activity Active Elizabeth A. assistance 07-08 [facility] required 14:57: e 00 [id number] Medication potential Meds Active Princess clinically 07-22 Seager significant 14:30: [id number] medication 00 issue Elimination urinary Eliminatio Resolve 2018-102019-09-16 Maria A incontinenc n d 1-07 13:52:00 Tree e 11:45: [employer] 00 [id number] Elimination urinary Eliminatio Resolve 2018-102019-12-09 Maria A incontinenc n d 205 11:10:00 Tree e 10:32: [employer] 00 [id number] Allergies, Adverse Reactions, Alerts Allergy Name Allergy Status Severity Reaction(s) Onset Inactive Treating Comments Type Date Date Clinician fentanyl Base Active Unknown Rash, Hives, 2016-10 Angy Ingredient itchy -16 Primitivo [id number] Sulfa Allergen Active Unknown Facial 2016-10 Angy (Sulfonamide Group Redness/ -16 Primitivo Antibiotics) [place] [id number] baclofen Base Active Moderate Unknown 2016-10 Angy Ingredient 1-16 Primitivo [id number] nitrofuranto Base Active Unknown Reaction 2016-10 Angy in Ingredient Unknown 11-11 Primitivo [id number] rosuvastatin Base Active Unknown extreme Princess Ingredient fatigue and 12-10 Alicia TAYLOR [id number] Medications Ordered Filled Start Stop Current Ordering Indication Dosage Frequency Signature Comments Components Medication Medication Date Date Medication? Clinician (SIG) Name Name amLODIPine amLODIPine 2016-10 Barrera / tab Unknown 5 mg tablet 5 mg tablet 11-03 ,Nabila gabapentin gabapentin 2016-10 Barrera 600 mg Unknown 600 mg 600 mg 11-03 ,Nabila tablet tablet hydroxychlo hydroxychlo 2016-10 Barrera 200 mg Unknown roquine 200 roquine 200 11-03 MD,Nabila mg tablet mg tablet Bystolic 5 Byst 5 2016-10 Barrera 5 mg Unknown mg tablet mg tablet 11-03 ,Nabila PHENobarbit PHENobarbit 2016-10 Barrera 60 mg Unknown al 60 mg al 60 mg 11-03 ,Nabila tablet tablet oxyCODONE-a oxyCODONE-a 2016-10 Unknown cetaminophe cetaminophe 11-03 ,Nabila tablet n 5 mg-325 n 5 mg-325 do not mg tablet mg tablet exceed 6 per day calcium calcium 2016-10 Unknown carbonate carbonate 11-03 ,Nabila tablet 600 mg 600 mg (1,500 (1,500 mg)-vitamin mg)-vitamin D3 400 unit D3 400 unit tablet tablet hydroxychlo hydroxychlo tab Unknown roquine 200 roquine 200 12-21 MD,Nabila mg tablet mg tablet Calcium 600 Calcium 600 tab Unknown + D(3) 600 + D(3) 600 12-21 MD,Nabila mg (1,500 mg (1,500 mg)-400 mg)-400 unit tablet unit tablet gabapentin gabapentin tab Unknown 600 mg 600 mg 12-21 MD,Nabila tablet tablet Bystolic 5 Bystolic 5 tab Unknown mg tablet mg tablet 12-21 MD,Nabila cyclobenzap cyclobenzap tab Unknown rine 10 mg rine 10 mg 12-21 MD,Nabila tablet tablet baclofen 20 baclofen 20 Barrera 1 tab Unknown mg tablet mg tablet 12-21 ,Nabila baclofen 10 baclofen 10 Harleen 2 tabs Unknown mg tablet mg tablet 12-21 MD,Dirk (20 mg) famotidine famotidine Harleen 20 mg Unknown 20 mg 20 mg 12-21 MD,Dirk tablet tablet Pepcid 20 Pepcid 20 2016-10 No Barrera 20mg Unknown mg tablet mg tablet 11-03 ,Nabila amLODIPine amLODIPine 2016-10 Barrera 1 tab Unknown 5 mg tablet 5 mg tablet 11-09 ,Nabila amLODIPine amLODIPine 2016-10 Barrera 2.5 mg Unknown 5 mg tablet 5 mg tablet 11-09 ,Nabila hydroxychlo hydroxychlo 2016-10 Barrera 200 mg Unknown roquine 200 roquine 200 11-03 ,Nabila mg tablet mg tablet oxyCODONE-a oxyCODONE-a 2016-10 Barrera 5/325 Unknown cetaminophe cetaminophe 11-03 ,Nabila mg n 5 mg-325 n 5 mg-325 mg tablet mg tablet amLODIPine amLODIPine 2016-10 Barrera 1 tab Unknown 5 mg tablet 5 mg tablet 11-17 ,Nabila PHENobarbit PHENobarbit 2016-10 Barrera 1 Unknown al 64.8 mg al 64.8 mg 11-04 ,Nabila tablet tablet tablet levoFLOXaci levoFLOXaci Barrera 500mg Unknown n 500 mg n 500 mg 01-17 ,Nabila for 5 tablet tablet days clindamycin clindamycin No Barrera 300 mg Unknown HCl 300 mg HCl 300 mg 04-16 ,Nabila capsule capsule clindamycin clindamycin No Barrera 300 mg Unknown HCl 300 mg HCl 300 mg 04-16 ,Nabila capsule capsule Aspirin Low Aspirin Low 2017-10 Barrera Unknown Unknown Dose 81 mg Dose 81 mg 08-16 ,Nabila tablet,jorge tablet,jorge yed release yed release amLODIPine amLODIPine 2017-10 Barrera Unknown Unknown 10 mg 10 mg 12-21 ,Nabila tablet tablet Tylenol 8 Tylenol 8 2017-10- Barrera Unknown Unknown Hour 650 mg Hour 650 mg 12-21 ,Nabila tablet,exte tablet,exte nded nded release release clindamycin clindamycin 2017-10- Barrera Unknown Unknown HCl 300 mg HCl 300 mg 08-26 ,Nabila capsule capsule Floranex 1 Floranex 1 2017-10- Barrera Unknown Unknown million million 09-03 ,Nabila cell tablet cell tablet oxyCODONE-a oxyCODONE-a 2017-10- Barrera Unknown Unknown cetaminophe cetaminophe 12-21 ,Nabila n 5 mg-325 n 5 mg-325 mg tablet mg tablet hydroxychlo hydroxychlo 2017-10 Vi Unknown Unknown roquine 200 roquine 200 12-17 Jr,Alonzo mg tablet mg tablet J calcium calcium 2019- Barrera Unknown Unknown carbonate carbonate 10-29 ,Nabila 600 600 mg(1,500 mg(1,500 mg)-vitamin mg)-vitamin D3 800 unit D3 800 unit chewable chewable tablet tablet rosuvastati rosuvastati 2018- Jose Maria Unknown Unknown n 5 mg n 5 mg 11-13 ,Kerry tablet tablet hydroxychlo hydroxychlo 2017-10 Vi Unknown Unknown roquine 200 roquine 200 12-17 Jr,Alonzo mg tablet mg tablet J Pepcid 20 Pepcid 20 2016-10- Barrera Unknown Unknown mg tablet mg tablet 11-03 ,Nabila rosuvastati rosuvastati 2019- [place] Unknown Unknown n 5 mg n 5 mg 02-04 ,Kerry tablet tablet hydroxychlo hydroxychlo 2019- Vi Unknown Unknown roquine 200 roquine 200 05-12 Jr,Alonzo mg tablet mg tablet J aspirin 325 aspirin 325 2019- Barrera Unknown Unknown mg tablet mg tablet 06-11 ,Nabila lisinopril lisinopril 2018- No Bruce Unknown Unknown 5 mg tablet 5 mg tablet 06-11 ,Nabila Privinil Privinil 2018-10- No Bruce Unknown Unknown 012-21 ,Nabila sulfamethox sulfamethox 2018-10 2020- Yes [place] Unknown Unknown azole 400 azole 400 12-21 ,Abdirizak mg-trimetho mg-trimetho prim 80 mg prim 80 [...]
--- OUTSIDE RECORDS SUMMARY | 2020-01-12 20:27 | XMS REPORT ---
:1960 Author Organization [facility] Care Team Providers Name Role Phone Unavailable Unavailable Unavailable Problems Condition Condition Condition Status Onset Resolution Last Treating Comments Name Details Category Date Date Treatment Clinician Date Cerebral Cerebral Diagnosis Active 2020-0 Jenelle infarction, infarction, 12-29 Wing unspecified unspecified [id number] Pain frequent Pain Mgmt Active 2019-0 Jenelle pain 12-30 Wing 09:36: [id number] 00 Nutrition nutritional Nutrition Active 2019-0 Jenelle restriction 12-30 Wing s 09:36: [id number] 00 Elimination urinary Eliminatio Active 2020-0 Jenelle incontinenc n 12-30 Wing e 09:36: [id number] 00 Elimination UTI within Eliminatio Active 2019-0 Jenelle past 14 n 12-30 Wing days 09:36: [id number] 00 Activity ADL Activity Active 2020-0 Jenelle assistance 12-30 Wing required 09:36: [id number] 00 Activity self-care Activity Active 2020-0 Jenelle deficit 12-30 Wing 09:36: [id number] 00 Safety risk for Safety Active 2019-0 Jenelle hospitaliza 12-30 Wing tion 09:36: [id number] 00 Medication knowledge/s Meds Active 2020-0 Jenelle kill 12-30 Wing deficit: pt 09:36: [id number] 00 Medication oral med Meds Active 2020-0 Jenelle assistance 12-30 Wing required 09:36: [id number] 00 Medication injectable Meds Active 2020-0 Jenelle med 12-30 Wing assistance 09:36: [id number] required 00 Medication potential Meds Active 2020-0 Jenelle clinically 12-30 Wing significant 09:36: [id number] medication 00 issue Diagnoses knowledge/s Diagnoses Active 2020-0 Jenelle kill 12-30 Wing deficit: pt 09:36: [id number] 00 Musculoskel transfer Musculoske Active 2020-0 Jenelle etal assistance letal 12-30 Wing required 09:36: [id number] 00 Allergies, Adverse Reactions, Alerts Allergy Name Allergy Status Severity Reaction(s) Onset Inactive Treating Comments Type Date Date Clinician fentanyl Base Active Unknown Reaction Alivia Ingredient Unknown 12-05 Laratta [id number] Sulfa Allergen Active Unknown Reaction Alivia (Sulfonamide Group Unknown 12-05 [place] Antibiotics) [id number] baclofen Base Active Unknown AMS Jenelle Ingredient 12-29 Wing [id number] nitrofuranto Base Active Unknown leukopenia/n Jenelle in Ingredient eutropenia 12-29 Wing [id number] Medications Ordered Filled Start Stop Current Ordering Indication Dosage Frequency Signature Comments Components Medication Medication Date Date Medication? Clinician (SIG) Name Name cyanocobala cyanocobala Yes Barrera Unknown Unknown min (vit min (vit 3-05 MD,Nabila B-12) 1,000 B-12) 1,000 mcg tablet mcg tablet folic acid folic acid Yes Barrera Unknown Unknown 1 mg tablet 1 mg tablet 3-05 MD,Nabila losartan 50 losartan 50 Yes Barrera Unknown Unknown mg tablet mg tablet -05 MD,Nabila PHENobarbit PHENobarbit Yes Barrera Unknown Unknown al 64.8 mg al 64.8 mg 3-05 MD,Nabila tablet tablet hydroxychlo hydroxychlo Yes Barrera Unknown Unknown roquine 200 roquine 200 3-05 MD,Nabila mg tablet mg tablet acetaminoph acetaminoph Yes Barrera Unknown Unknown en ER 650 en ER 650 3-05 MD,Nabila mg mg tablet,exte tablet,exte nded nded release release aspirin 325 aspirin 325 Yes Barrera Unknown Unknown mg tablet mg tablet 3-05 MD,Nabila rosuvastati rosuvastati Yes Barrera Unknown Unknown n 5 mg n 5 mg 3-05 MD,Nabila tablet tablet calcium calcium 2019- Yes Barrera Unknown Unknown carb,cit ER carb,cit ER 3-05 MD,Nabila 600 mg 600 mg calcium-vit calcium-vit D3 500 unit D3 500 unit tablet,ext. tablet,ext. release release amLODIPine amLODIPine Yes Barrera Unknown Unknown 10 mg 10 mg 3-05 MD,Nabila tablet tablet nebivolol 5 nebivolol 5 2019- Yes Barrera Unknown Unknown mg tablet mg tablet 3-05 MD,Nabila gabapentin gabapentin Yes Barrera Unknown Unknown 600 mg 600 mg 3-05 MD,Nabila tablet tablet Vital Signs Vital Name Observation Time Observation Value Comments RESP RATE 2020-01-01 18:10:45 18 /min /min Procedures This patient has no known procedures. Results This patient has no known results.
--- OUTSIDE RECORDS SUMMARY | 2020-01-12 20:27 | XMS REPORT ---
:1960 Author Organization [facility] Care Team Providers Name Role Phone Unavailable Unavailable Unavailable Problems Condition Condition Condition Status Onset Resolution Last Treating Comments Name Details Category Date Date Treatment Clinician Date Cerebral Cerebral Diagnosis Active Jenelle infarction, infarction, 3-05 Wing unspecified unspecified [id number] Allergies, Adverse Reactions, Alerts Allergy Allergy Type Status Severity Reaction(s) Onset Inactive Treating Comments Name Date Date Clinician fentanyl Base Active Unknown Reaction Alivia Ingredient Unknown 12-05 Laratta [id number] Sulfa Allergen Active Unknown Reaction Alivia (Sulfonami Group Unknown 12-05 Laratta de [id number] Antibiotic s) Medications Ordered Filled Start Stop Current Ordering Indication Dosage Frequency Signature Comments Components Medication Medication Date Date Medication? Clinician (SIG) Name Name No Known No Known No None None None Medications Medications For This For This Patient Patient Vital Signs Vital Name Observation Time Observation Value Comments SYSTOLIC mm[Hg] 2019-12-31 18:10:44 112 mm[Hg] mm[Hg] Method: Sit DIASTOLIC mm[Hg] 2019-12-31 18:10:44 68 mm[Hg] mm[Hg] Method: Sit PULSE 2019-12-31 18:10:44 70 /min /min RESP RATE 2019-12-31 18:10:44 18 /min /min TEMP 2019-12-31 18:10:44 97.5 [degF] Procedures This patient has no known procedures. Results This patient has no known results.
--- OUTSIDE RECORDS SUMMARY | 2020-01-12 20:27 | XMS REPORT ---
:1960 Author Organization [facility] Care Team Providers Name Role Phone Unavailable Unavailable Unavailable Problems Condition Condition Condition Status Onset Resolution Last Treating Comments Name Details Category Date Date Treatment Clinician Date Cerebral Cerebral Diagnosis Active Jenelle infarction, infarction, 12-29 Wing unspecified unspecified [id number] Nutrition nutritional Nutrition Active Jenelle restriction 12-31 Wing s 08:55: [id number] 00 Medication knowledge/s Meds Active Jenelle kill 12-31 Wing deficit: pt 08:55: [id number] 00 Allergies, Adverse Reactions, Alerts Allergy Allergy Type Status Severity Reaction(s) Onset Inactive Treating Comments Name Date Date Clinician fentanyl Base Active Unknown Reaction Alivia Ingredient Unknown 2- Laratta [id number] Sulfa Allergen Active Unknown Reaction Alivia (Sulfonami Group Unknown 2- Laratta de [id number] Antibiotic s) Medications Ordered Filled Start Stop [...]
--- OUTSIDE RECORDS SUMMARY | 2020-01-12 20:27 | XMS REPORT ---
:1960 Author Organization [facility] Care Team Providers Name Role Phone Unavailable Unavailable Unavailable Problems Condition Condition Condition Status Onset Resolution Last Treating Comments Name Details Category Date Date Treatment Clinician Date Cerebral Cerebral Diagnosis Active Jenelle infarction, infarction, 12-29 Wing unspecified unspecified [id number] Nutrition nutritional Nutrition Active Jenelle restriction 12-31 Wing s 08:55: [id number] 00 Medication knowledge/s Meds Active Jenelle kill 12-31 Wing deficit: pt 08:55: [id number] 00 Allergies, Adverse Reactions, Alerts Allergy Allergy Type Status Severity Reaction(s) Onset Inactive Treating Comments Name Date Date Clinician fentanyl Base Active Unknown Reaction Alivia Ingredient Unknown 2- Laratta [id number] Sulfa Allergen Active Unknown Reaction Alivia (Sulfonami Group Unknown 2- Laratta de [id number] Antibiotic s) Medications Ordered Filled Start Stop [...]
--- OUTSIDE RECORDS SUMMARY | 2020-01-12 20:27 | XMS REPORT ---
:1960 Author Organization [facility] Care Team Providers Name Role Phone Unavailable Unavailable Unavailable Problems Condition Condition Condition Status Onset Resolution Last Treating Comments Name Details Category Date Date Treatment Clinician Date Systemic Systemic Diagnosis Active 2016-10 Jenelle lupus lupus 10-27 Wing erythematos erythematos [id number] us, us, unspecified unspecified Pain in Pain in Diagnosis Active 2016-10 Jenelle right arm right arm 10-27 Wing [id number] Pain in Pain in Diagnosis Active 2016-10 Jenelle right lower right lower 10-27 Wing leg leg [id number] Contracture Contracture Diagnosis Active Jenelle , right , 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 [id number] Urinary Urinary Diagnosis Active 2016-10 Jenelle tract tract 11-03 Wing infection, infection, [id number] site not site not specified specified Hypertensiv Hypertensiv Diagnosis Active 2016-10 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 1-4/unsp chr kdny chr kdny 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, disease, [id number] stage 2 stage 2 (mild) (mild) 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, disorder, [id number] single single episode, episode, unspecified unspecified Spinal Spinal Diagnosis Active Jenelle stenosis, stenosis, Wing site site [id number] unspecified unspecified 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, hip joint, 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 bilateral bilateral Epilepsy, Epilepsy, Diagnosis Active Jenelle unsp, not unsp, not Wing intractable intractable [id number] , without , without status status epilepticus epilepticus 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 [id number] Pain frequent Pain Mgmt Resolve 2016-102019-04-23 Maria A pain d 11-03 15:40:00 Jaquan 14:09: [id number] 00 Nutrition nutritional Nutrition Resolve 2016-102017-09-30 Maria A restriction d 11-03 14:00:00 Jaquan s 14:09: [id number] 00 Elimination knowledge/s Eliminatio Resolve 2016-102017-09-30 Maria A kill n d 11-03 14:00:00 Jaquan deficit: pt 14:09: [id number] 00 Elimination urinary Eliminatio Resolve 2016-102017-09-30 Maria A incontinenc n d 11-03 14:00:00 Jaquan e 14:09: [id number] 00 Elimination UTI within Eliminatio Resolve 2016-102017-09-30 Maria A past 14 n d 11-03 14:00:00 Jaquan days 14:09: [id number] 00 Activity ADL Activity Unknown 2016-10 Quality assistance 11-03 Realtime required 14:09: 00 Safety risk for Safety Resolve 2016-102017-09-23 Maria A hospitaliza d 11-03 09:45:00 Jaquan tion 14:09: [id number] 00 Medication potential Meds Resolve 2016-102017-10-02 Maria A clinically d 11-03 13:30:00 Jaquan significant 14:09: [id number] medication 00 issue Medication oral med Meds Resolve 2016-102017-10-02 Maria A assistance d 11-03 13:30:00 Jaquan required 14:09: [id number] 00 Elimination recurring Eliminatio Resolve 2016-102017-09-30 Maria A UTI n d 11-10 14:00:00 Jaquan 14:00: [id number] 00 Safety risk for Safety Resolve 2016-102017-09-30 Maria A hospitaliza d 11-25 14:00:00 Jaquan tion 11:04: [id number] 00 Nutrition nutritional Nutrition Resolve 2016-102017-10-07 Maria A restriction d 12-03 11:06:00 Jaquan s 13:30: [id number] 00 Elimination urinary Eliminatio Resolve 2016-102017-10-02 Maria A incontinenc n d 12-03 13:30:00 Jaquan e 13:30: [id number] 00 Safety risk for Safety Resolve 2016-102017-10-07 Maria A hospitaliza d 12-03 11:06:00 Jaquan tion 13:30: [id number] 00 Elimination urinary Eliminatio Resolve 2016-102017-10-28 Maria A incontinenc n d 12-22 09:32:00 Jaquan e 10:14: [id number] 00 Elimination constipatio Eliminatio Resolve 2016-102017-10-28 Maria A n n d 12-22 09:32:00 Jaquan 10:14: [id number] 00 Pain frequent Pain Mgmt Unknown Maria A pain 10-28 Jaquan 09:32: [id number] 00 Activity ADL Activity Resolve 2018-02-10 Maria A assistance d 10-28 11:05:00 Jaquan required 09:32: [id number] 00 Elimination urinary Eliminatio Resolve 2017-12-17 Mehnaz incontinenc n d 11-04 11:35:00 Ugalde e 13:15: [id number] 00 Safety risk for Safety Active Mehnaz hospitaliza 11-04 Ugalde tion 13:15: [id number] 00 Safety can be left Safety Active Mehnaz alone for 11-04 Ugalde only short 13:15: [id number] periods 00 Elimination urinary Eliminatio Resolve 2018-02-26 Maria A incontinenc n d 12-31 12:00:00 Jaquan e 10:00: [id number] 00 Medication oral med Meds Resolve 2018-02-26 Maria A assistance d 12-31 12:00:00 Jaquan required 10:00: [id number] 00 Medication injectable Meds Resolve 2018-02-26 Maria A med d 12-31 12:00:00 Jaquan assistance 10:00: [id number] required 00 Elimination constipatio Eliminatio Resolve 2018-02-26 Maria A n n d 01-20 12:00:00 Jaquan 11:19: [id number] 00 Safety fire risk Safety Active Maria A present 04-11 Eliz 12:00: [id number] 00 Elimination urinary Eliminatio Resolve 2018-09-03 Maria A incontinenc n d 04-16 11:30:00 Eliz e 11:56: [id number] 00 Medication oral med Meds Resolve 2018-12-24 Maria A assistance d 04-16 13:24:00 [place] required 11:56: [id number] 00 Safety fall risk Safety Active Maria A factor 06-25 [place] present 14:00: [id number] 00 Pain frequent Pain Mgmt Unknown 2017-10 Maria A pain 10-28 Eliz 13:00: [id number] 00 Endo/López anti-coagul Endo/López Resolve 2017-102019-06-24 Maria A ation d 11-03 13:34:00 [place] therapy 11:30: [id number] 00 Elimination urinary Eliminatio Resolve 2017-102019-02-22 Maria A incontinenc n d 14:30:00 Eliz e 14:34: [id number] 00 Nutrition nutritional Nutrition Active Princess restriction 2-14 Seager s 13:11: [id number] 00 Cardio chest pain Cardiovasc Resolve 2019-09-16 Maria A ular d 12-24 13:52:00 [place] 13:24: [id number] 00 Elimination urinary Eliminatio Resolve 2019-08-19 Maria A incontinenc n d 04-23 13:50:00 Eliz e 15:40: [id number] 00 Safety can be left Safety Unknown Maria A alone for 04-23 [place] only short 15:40: [id number] periods 00 Pain frequent Pain Mgmt Resolve 2019-06-24 Kaye pain d 16 13:34:00 [place] 09:20: [id number] 00 Elimination UTI within Eliminatio Resolve 2019-08-19 Kaye past 14 n d 06-11 13:50:00 [place] days 09:20: [id number] 00 Elimination bowel Eliminatio Resolve 2019-08-19 Kaye incontinenc n d 06-11 13:50:00 Christoph e 09:20: [id number] 00 Neuro confusion Neuro/Emot Active Kaye present ion 06-11 [place] 09:20: [id number] 00 Activity ADL Activity Unknown Kaye assistance 06-11 [place] required 09:20: [id number] 00 Activity self-care Activity Active Kaye deficit 06-11 [place] 09:20: [id number] 00 Medication oral med Meds Resolve 2019-06-24 Kaye assistance d 06-11 13:34:00 [place] required 09:20: [id number] 00 Musculoskel transfer Musculoske Resolve 2019-09-16 Kaye etal assistance letal d 06-11 13:52:00 [place] required 09:20: [id number] 00 Musculoskel requires Musculoske Resolve 2019-09-16 Kaye etal human letal d 06-11 13:52:00 [place] assist to 09:20: [id number] leave home 00 Activity ADL Activity Active Elizabeth A. assistance 07-08 [facility] required 14:57: e 00 [id number] Medication potential Meds Active Princess clinically 07-22 [place] significant 14:30: [id number] medication 00 issue Elimination urinary Eliminatio Resolve 2018-102019-09-16 Maria A incontinenc n d 1-07 13:52:00 Tree e 11:45: [employer] 00 [id number] Elimination urinary Eliminatio Resolve 2018-102019-12-09 Maria A incontinenc n d 205 11:10:00 Tree e 10:32: [employer] 00 [id number] Allergies, Adverse Reactions, Alerts Allergy Name Allergy Status Severity Reaction(s) Onset Inactive Treating Comments Type Date Date Clinician fentanyl Base Active Unknown Rash, Hives, 2016-10 Angy Ingredient itchy -16 Primitivo [id number] Sulfa Allergen Active Unknown Facial 2016-10 Angy (Sulfonamide Group Redness/ -16 Primitivo Antibiotics) Flushing [id number] baclofen Base Active Moderate Unknown 2016-10 Angy Ingredient 1-16 Primitivo [id number] nitrofuranto Base Active Unknown Reaction 2016-10 Angy in Ingredient Unknown 11-11 Primitivo [id number] rosuvastatin Base Active Unknown extreme Princess Ingredient fatigue and 12-10 Alicia TAYLOR [id number] Medications Ordered Filled Start Stop Current Ordering [...] mg tablet 11-03 ,Nabila rosuvastati rosuvastati 2019- [place] Unknown Unknown n 5 mg n 5 [...] 012-21 ,Nabila sulfamethox sulfamethox 2018-10 2020- Yes [place] Unknown Unknown azole 400 azole 400 12-21 [...]
--- OUTSIDE RECORDS SUMMARY | 2020-01-12 20:27 | XMS REPORT | Continuity of Care Document ---
:1960 External Reference #:[id number] Author Name Jessica Lopez NP (transmitted by agent of provider Emilie Medina) Address [address] [place] [id number] Care Team Providers Name Role Phone Nabila Barerra MD - Internal Care Team Information Food And Beverage Assistant Manager [phone] Medicine Jamaal Wynn MD - Internal Medicine Care Team Information Food And Beverage Assistant Manager Mark Thompson MD - Dermatology Care Team Information Food And Beverage Assistant Manager [phone] Cisco Mcfarland - Nurse Care Team Information Food And Beverage Assistant Manager [phone] Practitioner Alonzo Lebron MD - Rheumatology Care Team Information Food And Beverage Assistant Manager [phone] Problems Active Problems Provider Date Systemic lupus erythematosus Nabila Barrera M.D. Onset: 05/09/2012 Medications Biometrics Head (Current) Use Encounter Emile Hawkins M.D. Onset: [...] Note: phenobarb level 26.27 Aug 2017; in [employer] database [address] García [...] Ordering Date Provider Bystolic 1 by mouth 30tabs Jennifer Zimmer, 12/21/2019 10mg Tablets every day N.P. Triamcinolone Acetonide apply twice a 30gm R21 Jennifer Goran, 10/08/2019 0.1% day until N.P. Cream clear Prinivil 1/2 tab every 90tabs Nabila Barrera, 06/10/2019 5mg Tablets day M.D. Aspirin 1 by mouth 28tabs Other Ordering 06/07/[address] every day Provider Hydroxychloroquine Sulfate take 1 tablet 180tabs Z79.899 Cisco Mcfarland, 200mg by mouth ANALYTICAL LAB TECHNICIAN Tablets twice a day M32.14 M32.9 Rosuvastatin Calcium 1 tab by mouth 45tabs Niurka Gonzalez NP 01/19/2019 5mg every other day at Tablets bedtime Amlodipine Besylate Take 1 Tablet By 90tabs I10 Nabila Barrera, 09/16/2018 10mg Mouth Every Day M.D. Tablets Floranex Every Day 15tabs Unknown 08/14/2018 Tablets Calcium 500+D3 1 tab by mouth 180tabs M85.89 Zsofidavid Mcfarland, 12/18/2017 [id number] twice a day ANALYTICAL LAB TECHNICIAN Tablets Phenobarbital 1 tab by mouth 60tabs Christopher Dee NP 05/09/2012 64.8mg Tablets twice a day Gabapentin take 1 tablet by 180tabs Christopher Dee NP 600mg Tablets mouth two times daily Pepcid Take 1 Tablet By 90tabs Nabila Barrera, 20mg Tablets Mouth Every Day M.D. Acetaminophen ER 1 by mouth twice a Unknown 650mg day as needed Tablets ER History Medications Metamucil once a day 60caps K59.03 Nabiladavid Barrera, 08/26/2019 - 0.52gm Capsules M.D. 10/07/2019 Ciprofloxacin HCL Take 1 Tablet Unknown 08/22/2019 - 500mg By Mouth Two 10/07/2019 Tablets Times Daily For 3 Days Immunizations CPT Code Status Date Vaccine Reaction Lot # [id number] Given 08/26/2019 Influenza Virus Vaccine, [id number] Quadrivalent ([id number]), Derived From Cell 21094 Given 07/15/2019 Pneumococcal Conjugate Vaccine [id number] Valent For Intramuscular Use 38462 Given 08/27/2018 Influenza Virus Vaccine, Pt. tolerated well. [id number] Quadrivalent, Split, Preservative Free 48620 Given 07/01/2018 Pneumonia Vaccine [id number] 17090 Given 07/17/2017 Influenza Virus Vaccine, Quadrivalent, Split, Preservative Free 44028 Given 07/15/2016 Influenza Virus Vaccine, [id number] Quadrivalent, Split, Preservative Free 77224 Given 08/03/2015 Influenza Virus Vaccine, No reaction noted [id number] Quadrivalent, Split, Preservative Free 61422 Given 06/05/2015 Tdap - Tetanus/Diptheria/Acellular Pertussis 56011 Given 07/21/2014 Influenza Virus Vaccine, [id number] Quadrivalent, Split, Preservative Free [id number] Refused 08/12/2013 Tdap - Tetanus/Diptheria/Acellular Pertussis 85134 Refused 08/12/2013 Flu Vaccine Split Virus Preservative [...] Result H/L Range Note Comp Metabolic 12/21/2019 [facility] Sodium 138 mmol/L Normal 135-145 Panel [address] [place] [address] [phone] Potassium 4.2 mmol/L Normal 3.5-5.0 Chloride 104 [...] Egfr 32.7 >60 1 CBC Auto 12/21/2019 [facility] White Blood 3.8 10^3/uL Normal 3.5-10.[address] [place] [address] [phone] Red Blood Count 3.49 10^6/uL Low 3.70-4.87 [...] Blood Cells % 0.1 Urinalysis Profile 12/21/2019 [facility] Urine Color Yellow [address] [place] [address] [phone] Urine Appearance Cloudy Urine Specific [place] 1.010 Normal 1.010-1.030 Urine pH 7.0 Normal [...] 1+ Abnormal Absent Urine Culture And 12/21/2019 [facility] Urine SEE RESULT [address] [place] [place] [address] [phone] CBC Auto Diff 12/15/2019 [facility] White Blood 4.4 10^3/uL Normal 3.5-[address] Count 0.8 [place] [address] [phone] Red Blood Count 3.44 10^6/uL Low 3.70-4.87 [...] Blood Cells % 0.1 Comp Metabolic 12/15/2019 [facility] Sodium 136 mmol/L Normal 135-[address] [place] [address] [phone] Chloride 106 mmol/L Normal 101-111 Co2 Carbon [...] 5 mmol/L Normal 2-11 CBC Auto 08/19/2019 [facility] White Blood 7.4 10^3/uL Normal 3.5-10.[address] [place] [address] [phone] Red Blood Count 3.55 10^6/uL Low 3.70-4.87 [...] Blood Cells % 0.0 Comp Metabolic 08/19/2019 [facility] Sodium 140 mmol/L Normal 135-[address] [place] [address] [phone] Chloride 107 mmol/L Normal 101-111 Co2 Carbon [...] 24 U/L Normal 13-39 Urinalysis Profile 08/19/2019 [facility] Urine Color Yellow [address] [place] [address] [phone] Urine Appearance Cloudy Urine Specific [place] 1.011 Normal 1.010-1.030 Urine pH 7.0 Normal [...] Present Abnormal Absent Urine Culture And 08/19/2019 [facility] Urine Culture SEE RESULT [address] [place] [address] [phone] 1 Because ethnic data is not always [...] [address]: Marko Raygoza MD Acct: [id number] Unit: [id number] AGE: 59 Location: [place] [address] Re12/21/19 SEX: F Status: ADM Dorothy SPEC: [id number] GENET: 12/21/19-954 [facility] DR: Ti BRIONES REQ: [id number] RECD: 12/21/19 STATUS: MATTHEW MARTINEZ DR: Nabila Barrera MD _ SOURCE: URINE SPDESC: ORDERED: Urine Culture Procedure Result Reported Site Urine Culture Final 12/22/19- 1119 ML Organism 1 STREP GROUP B [place] Count >100,000 (Many) CFU/ML Organism 2 NORMAL PREMA [place] Count 10-25,000 (Moderate) CFU/ML Susceptibility testing of penicillins and other B-lactams approved by FDA for treatment of Streptococcus pyogenes (Group A Strep) and Streptococcus agalactiae (Group B Strep) is not necessary for clinical purposes and need not be done routinely, since as with vancomycin, resistant strains have not been recognized. (CLSI S907-Z22;p.66) Positive isolates will be saved for one week. Please call the Microbiology Laboratory if further susceptibility testing is needed. * ML - Main Lab . END OF REPORT DEPARTMENT OF PATHOLOGY, [address] [place] [address] Edwin Chanel M.D. Director [facility] # [id number] 5 Because ethnic data is not always [...] (or dialysis) 7 SEE RESULT BELOW Name: THAIS RAO : [address]: Magen Christensen MD Acct: [id number] Unit: [id number] AGE: 59 Location: ED Re08/19/19 SEX: F Status: DEP ER SPEC: [id number] GENET: 08/19/19 [facility] DR: Magen Christensen MD REQ: [id number] RECD: 08/19/19 STATUS: COMP [facility] DR: Nabila Barrera MD _ SOURCE: URINE SPDESC: ORDERED: Urine Culture Procedure Result Reported Site Urine Culture Final 08/21/19- 09 ML Organism 1 [facility] [place] Count 50-75,000 (Many) CFU/ML Organism 2 STREP GROUP B [place] Count 10-25,000 (Moderate) CFU/ML Susceptibility testing of penicillins and other B-lactams approved by FDA for treatment of Streptococcus pyogenes (Group A Strep) and Streptococcus agalactiae (Group B Strep) is not necessary for clinical purposes and need not be done routinely, since as with vancomycin, resistant strains have not been recognized. (CLSI O341-Z39;p.66) Positive isolates will be saved for one week. Please call the Microbiology Laboratory if further susceptibility testing is needed. 1. [facility] M.I.C. RX --------- ------ Cefazolin >=64 R Cefepime <=1 S Ceftriaxone <=1 S Ciprofloxacin <=0.25 S Gentamicin <=1 S Levofloxacin <=0.12 S Meropenem <=0.25 S Nitrofurantoin <=16 S Tetracycline <=1 S CONTINUED ON NEXT PAGE DEPARTMENT OF PATHOLOGY, [address] [place] [address] Edwin Chanel M.D. Director [facility] # [id number] Specimen: [id number] Collected: 08/19/19 Received: 08/19/19 (Continued) Procedure Result Reported Site Urine Culture Final (continued) 08/21/19- 937 1. [facility] (continued) M.I.C. RX --------- ------ Pipercillin/Tazobactam <=4 S Trimethoprim/Sulfamethoxazole <=20 S Amoxicillin/Clavulanic Acid R Aztreonam <=1 S Contact the Microbiology Department for any additional antibiotic reporting. * ML - Main Lab . END OF REPORT DEPARTMENT OF PATHOLOGY, [address] [place] [address] Edwin Chanel M.D. Director [facility] # [id number] Procedures Date Code Description Status 06/16/2019 [id number] Diabetic Retinal Eye Exam Completed 01/28/2019 [id number] Bone Mineral Density Test Completed 01/28/2019 [id number] Mammogram Completed 01/13/2018 27381521 Mammogram Completed 12/25/2017 477593229 Diabetic Retinal Eye Exam Completed 09/27/2016 39752932 Mammogram Completed 04/30/2016 [id number] Bone Mineral Density Test Completed 09/07/2015 97271516 Mammogram Completed 08/22/2014 [id number] Colonoscopy Completed 06/22/2014 [id number] Mammogram Completed 06/18/2013 [id number] Mammogram Completed 10/27/2009 78873694 Colonoscopy Completed Medical Devices Description No Information Available Encounters Type Date Location Provider Dx Diagnosis Office Visit 12/22/2019 [facility] Jessica Manjarrez L89.152 Pressure ulcer of 8:00a Center [facility] DAISHA Lopez sacral region, stage 2 Office Visit 10/08/2019 [facility] Internal Jennifer Zimmer, R21 Rash and other 2:00p Medicine - [facility] N.P. nonspecific skin eruption Office Visit 08/26/2019 [facility] Internal Nabila Barrera, N39.0 Urinary tract 10:[facility] infection, site not specified K64.8 Other hemorrhoids K59.03 Drug induced constipation M79.671 Pain in right foot Z23 Encounter for immunization Assessments Date Code Description Provider 12/22/2019 L89.152 Pressure ulcer of sacral region, Jessica Loki Lopez , DAISHA stage 2 10/08/2019 R21 Rash and other nonspecific skin [...] M.D. cardiovascular function study Plan of Treatment 10/08/2019 - Jennifer Zimmer N.P.R21 Rash and other nonspecific skin eruptionNew Medication:Triamcinolone Acetonide 0.1 % - apply twice a day until clearComments :For your rash I have sent a prescription to the pharmacy for Triamcinolone cream. Apply this to the affected areas until clear. If you do not get relief with this, mariama castle contact the office. You may need to see a java architect. Functional Status Functional Condition Comment Date Status Standard walker is used to ambulate Active Quad cane is used with the left hand to ambulate Active Mental Status Description No Information Available Referrals Description No Information Available
--- OUTSIDE RECORDS SUMMARY | 2020-01-12 20:27 | XMS REPORT ---
:1960 Author Organization [facility] Care Team Providers Name Role Phone Unavailable Unavailable Unavailable Problems Condition Condition Condition Status Onset Resolution Last Treating Comments Name Details Category Date Date Treatment Clinician Date Cerebral Cerebral Diagnosis Active 2020-0 Jenelle infarction, infarction, 12-29 Wing unspecified unspecified [id number] Pain frequent Pain Mgmt Active 2019-0 Jenelle pain 12-30 Wing 09:36: [id number] 00 Nutrition nutritional Nutrition Active 2019-0 Jenelle restriction 12-30 Wing s 09:36: [id number] 00 Elimination urinary Eliminatio Active 2020-0 Jenelle incontinenc n 12-30 Wing e 09:36: [id number] 00 Elimination UTI within Eliminatio Active 2019-0 Jenelle past 14 n 12-30 Wing days 09:36: [id number] 00 Activity ADL Activity Active 2020-0 Jenelle assistance 12-30 Wing required 09:36: [id number] 00 Activity self-care Activity Active 2020-0 Jenelle deficit 12-30 Wing 09:36: [id number] 00 Safety risk for Safety Active 2019-0 Jenelle hospitaliza 12-30 Wing tion 09:36: [id number] 00 Medication knowledge/s Meds Active 2020-0 Jenelle kill 12-30 Wing deficit: pt 09:36: [id number] 00 Medication oral med Meds Active 2020-0 Jenelle assistance 12-30 Wing required 09:36: [id number] 00 Medication injectable Meds Active 2020-0 Jenelle med 12-30 Wing assistance 09:36: [id number] required 00 Medication potential Meds Active 2020-0 Jenelle clinically 12-30 Wing significant 09:36: [id number] medication 00 issue Diagnoses knowledge/s Diagnoses Active 2020-0 Jenelle kill 12-30 Wing deficit: pt 09:36: [id number] 00 Musculoskel transfer Musculoske Active 2020-0 Jenelle etal assistance letal 12-30 Wing required 09:36: [id number] 00 Allergies, Adverse Reactions, Alerts Allergy Name Allergy Status Severity Reaction(s) Onset Inactive Treating Comments Type Date Date Clinician fentanyl Base Active Unknown Reaction Alivia Ingredient Unknown 12-05 [place] [id number] Sulfa Allergen Active Unknown Reaction Alivia (Sulfonamide Group Unknown 12-05 [place] Antibiotics) [id number] baclofen Base Active Unknown AMS Jenelle Ingredient 12-29 Wing [id number] nitrofuranto Base Active Unknown leukopenia/n Jenelle in Ingredient eutropenia 12-29 Wing [id number] Medications Ordered Filled Start Stop Current Ordering [...]
--- OUTSIDE RECORDS SUMMARY | 2020-01-12 20:27 | XMS REPORT ---
:1960 Author Organization [facility] Care Team Providers Name Role Phone Unavailable Unavailable Unavailable Problems Condition Condition Condition Status Onset Resolution Last Treating Comments Name Details Category Date Date Treatment Clinician Date Cerebral Cerebral Diagnosis Active 2020-0 Jenelle infarction, infarction, 12-29 Wing unspecified unspecified [id number] Pain frequent Pain Mgmt Active 2019-0 Jenelle pain 12-30 Wing 09:36: [id number] Nutrition nutritional Nutrition Active 2019-0 Jenelle restriction 12-30 Wing s 09:36: [id number] 00 Elimination urinary Eliminatio Active 2020-0 Jenelle incontinenc n 12-30 Wing e 09:36: [id number] 00 Elimination UTI within Eliminatio Active 2019-0 Jenelle past 14 n 12-30 Wing days 09:36: [id number] Activity ADL Activity Active 2020-0 Jenelle assistance 12-30 Wing required 09:36: [id number] 00 Activity self-care Activity Active 2020-0 Jenelle deficit 12-30 Wing 09:36: [id number] 00 Safety risk for Safety Active 2019-0 Jenelle hospitaliza 12-30 Wing tion 09:36: [id number] 00 Medication knowledge/s Meds Active 2020-0 Jenelle kill 12-30 Wing deficit: pt 09:36: [id number] 00 Medication oral med Meds Active 2020-0 Jenelle assistance 12-30 Wing required 09:36: [id number] 00 Medication injectable Meds Active 2020-0 Jenelle med 12-30 Wing assistance 09:36: [id number] required 00 Medication potential Meds Active 2020-0 Jenelle clinically 12-30 Wing significant 09:36: [id number] medication 00 issue Diagnoses knowledge/s Diagnoses Active 2020-0 Jenelle kill 12-30 Wing deficit: pt 09:36: [id number] 00 Musculoskel transfer Musculoske Active 2020-0 Jenelle etal assistance letal 12-30 Wing required 09:36: [id number] 00 Allergies, Adverse Reactions, Alerts Allergy Name Allergy Status Severity Reaction(s) Onset Inactive Treating Comments Type Date Date Clinician fentanyl Base Active Unknown Reaction Alivia Ingredient Unknown 12-05 Laratta [id number] Sulfa Allergen Active Unknown Reaction Alivia (Sulfonamide Group Unknown 12-05 Laratta Antibiotics) [id number] baclofen Base Active Unknown AMS Jenelle Ingredient 12-29 Wing [id number] nitrofuranto Base Active Unknown leukopenia/n Jenelle in Ingredient eutropenia 12-29 Wing [id number] Medications Ordered Filled Start Stop Current Ordering [...]
--- OUTSIDE RECORDS SUMMARY | 2020-01-12 20:27 | XMS REPORT ---
:1960 Author Organization [facility] Care Team Providers Name Role Phone Unavailable Unavailable Unavailable Problems Condition Condition Condition Status Onset Resolution Last Treating Comments Name Details Category Date Date Treatment Clinician Date Cerebral Cerebral Diagnosis Active Jenelle infarction, infarction, 12-29 Wing unspecified unspecified [id number] Nutrition nutritional Nutrition Active Jenelle restriction 12-31 Wing s 08:55: [id number] Medication knowledge/s Meds Active Jenelle kill 12-31 Wing deficit: pt 08:55: [id number] 00 Allergies, Adverse Reactions, Alerts Allergy Allergy Type Status Severity Reaction(s) Onset Inactive Treating Comments Name Date Date Clinician fentanyl Base Active Unknown Reaction Alivia Ingredient Unknown 2- Laratta [id number] Sulfa Allergen Active Unknown Reaction Alivia (Sulfonami Group Unknown 2- Laratta de [id number] Antibiotic s) Medications Ordered Filled Start Stop [...]
--- OUTSIDE RECORDS SUMMARY | 2020-01-12 20:27 | XMS REPORT ---
:1960 Author Organization [facility] Care Team Providers Name Role Phone Unavailable Unavailable Unavailable Problems Condition Condition Condition Status Onset Resolution Last Treating Comments Name Details Category Date Date Treatment Clinician Date Cerebral Cerebral Diagnosis Active Jenelle infarction, infarction, 12-29 Wing unspecified unspecified [id number] Nutrition nutritional Nutrition Active Jenelle restriction 12-31 Wing s 08:55: [id number] Medication knowledge/s Meds Active Jenelle kill 12-31 Wing deficit: pt 08:55: [id number] 00 Allergies, Adverse Reactions, Alerts Allergy Allergy Type Status Severity Reaction(s) Onset Inactive Treating Comments Name Date Date Clinician fentanyl Base Active Unknown Reaction Alivia Ingredient Unknown 2- Laratta [id number] Sulfa Allergen Active Unknown Reaction Alivia (Sulfonami Group Unknown 2- Laratta de [id number] Antibiotic s) Medications Ordered Filled Start Stop [...]
--- OUTSIDE RECORDS SUMMARY | 2020-01-12 20:27 | XMS REPORT ---
:1960 Author Organization [facility] Care Team Providers Name Role Phone Unavailable Unavailable Unavailable Problems Condition Condition Condition Status Onset Resolution Last Treating Comments Name Details Category Date Date Treatment Clinician Date Cerebral Cerebral Diagnosis Active 2020-0 Jenelle infarction, infarction, 12-29 Wing unspecified unspecified [id number] Pain frequent Pain Mgmt Active 2019-0 Jenelle pain 12-30 Wing 09:36: [id number] Nutrition nutritional Nutrition Active 2019-0 Jenelle restriction 12-30 Wing s 09:36: [id number] 00 Elimination urinary Eliminatio Active 2020-0 Jenelle incontinenc n 12-30 Wing e 09:36: [id number] 00 Elimination UTI within Eliminatio Active 2019-0 Jenelle past 14 n 12-30 Wing days 09:36: [id number] 00 Activity ADL Activity Active 2020-0 Jenelle assistance 12-30 Wing required 09:36: [id number] 00 Activity self-care Activity Active 2020-0 Jenelle deficit 12-30 Wing 09:36: [id number] 00 Safety risk for Safety Active 2019-0 Jenelle hospitaliza 12-30 Wing tion 09:36: [id number] 00 Medication knowledge/s Meds Active 2020-0 Jenelle kill 12-30 Wing deficit: pt 09:36: [id number] 00 Medication oral med Meds Active 2020-0 Jenelle assistance 12-30 Wing required 09:36: [id number] 00 Medication injectable Meds Active 2020-0 Jenelle med 12-30 Wing assistance 09:36: [id number] required 00 Medication potential Meds Active 2020-0 Jenelle clinically 12-30 Wing significant 09:36: [id number] medication 00 issue Diagnoses knowledge/s Diagnoses Active 2020-0 Jenelle kill 12-30 Wing deficit: pt 09:36: [id number] 00 Musculoskel transfer Musculoske Active 2020-0 Jenelle etal assistance letal 12-30 Wing required 09:36: [id number] 00 Allergies, Adverse Reactions, Alerts Allergy Name Allergy Status Severity Reaction(s) Onset Inactive Treating Comments Type Date Date Clinician fentanyl Base Active Unknown Reaction Alivia Ingredient Unknown 12-05 Laratta [id number] Sulfa Allergen Active Unknown Reaction Alivia (Sulfonamide Group Unknown 12-05 Laratta Antibiotics) [id number] baclofen Base Active Unknown AMS Jenelle Ingredient 12-29 Wing [id number] nitrofuranto Base Active Unknown leukopenia/n Jenelle in Ingredient eutropenia 12-29 Wing [id number] Medications Ordered Filled Start Stop Current Ordering [...]
--- OUTSIDE RECORDS SUMMARY | 2020-01-12 20:27 | XMS REPORT ---
:1960 Author Organization [facility] Care Team Providers Name Role Phone Unavailable Unavailable Unavailable Problems Condition Condition Condition Status Onset Resolution Last Treating Comments Name Details Category Date Date Treatment Clinician Date Cerebral Cerebral Diagnosis Active Jenelle infarction, infarction, 3-05 Wing unspecified unspecified [id number] Allergies, Adverse Reactions, Alerts Allergy Allergy Type Status Severity Reaction(s) Onset Inactive Treating Comments Name Date Date Clinician fentanyl Base Active Unknown Reaction Alivia Ingredient Unknown 2- Heide [id number] Sulfa Allergen Active Unknown Reaction Alivia (Sulfonami Group Unknown 2 Heide de [id number] Antibiotic s) Medications Ordered Filled Start Stop Current Ordering Indication Dosage Frequency Signature Comments Components Medication Medication Date Date Medication? Clinician (SIG) Name Name No Known No Known No None None None Medications Medications For This For This Patient Patient Procedures This patient has no known procedures. Results This patient has no known results.
[2020-01-12 20:39] LABS: TSH (Thyroid Stimulating Horm) 1.17 mcIU/mL (0.34-5.60)
[2020-01-12] MEDS ORDERED: Ketorolac INJ* 30 MG/ML 1 ML VIAL IV PUSH ONE (21:34)
[2020-01-12 23:08] VITALS: BP 147/78
--- NOTE | 2020-01-15 08:42 | ED ---
Imaging and Labs Follow Up Follow Up Type: Labs/Cultures Labs/Culture Result: Urine culture final grew low colony count Patient Communication/Plan: pt not placed on abx Patient Communication/Plan: nothing further required Provider Diagnoses: Right arm pain, Right leg pain
== END 2020-01-13 01:15 | disposition home or self-care (01) ==
LOC: ED 19:11
DX: M79.601 Pain in right arm (principal); M79.604 Pain in right leg; I69.354 Hemiplegia and hemiparesis following cerebral infarction affecting left non-dominant side; E89.0 Postprocedural hypothyroidism; M32.9 Systemic lupus erythematosus, unspecified; I12.9 Hypertensive chronic kidney disease with stage 1 through stage 4 chronic kidney disease, or unspecified chronic kidney disease; N18.2 Chronic kidney disease, stage 2 (mild); K21.9 Gastro-esophageal reflux disease without esophagitis; F41.9 Anxiety disorder, unspecified; F32.9 Major depressive disorder, single episode, unspecified; Z86.718 Personal history of other venous thrombosis and embolism; Z86.711 Personal history of pulmonary embolism; Z96.643 Presence of artificial hip joint, bilateral; Z79.82 Long term (current) use of aspirin; Z79.899 Other long term (current) drug therapy; Z88.2 Allergy status to sulfonamides; Z88.1 Allergy status to other antibiotic agents; Z88.8 Allergy status to other drugs, medicaments and biological substances; Z88.4 Allergy status to anesthetic agent; Z87.891 Personal history of nicotine dependence
CPT/HCPCS: 36415; 80053; 81003; 81015; 83605; 84443; 85025; 87086; 96374; 99284; J1885

== ENCOUNTER 2020-02-15 10:12 | Emergency (ER) | payer MEDICARE, MEDICAID, OTHER ==
--- OUTSIDE RECORDS SUMMARY | 2020-02-15 10:37 | XMS REPORT ---
:1960 Author Organization [facility] Care Team Providers Name Role Phone Unavailable Unavailable Unavailable Problems Condition Condition Condition Status Onset Resolution Last Treating Comments Name Details Category Date Date Treatment Clinician Date Cerebral Cerebral Diagnosis Active Jenelle infarction, infarction, 12-29 Wing unspecified unspecified [id number] Pain frequent Pain Mgmt Active Jenelle pain 12-30 Wing 09:36: [id number] 00 Nutrition nutritional Nutrition Resolve 2020-01-13 Jenelle restriction d 12-30 09:30:00 Wing s 09:36: [id number] 00 Elimination urinary Eliminatio Resolve 2020-01-13 Jenelle incontinenc n d 12-30 09:30:00 Wing e 09:36: [id number] 00 Elimination UTI within Eliminatio Resolve 2020-01-13 Jenelle past 14 n d 12-30 09:30:00 Wing days 09:36: [id number] 00 Activity ADL Activity Active Jenelle assistance 12-30 Wing required 09:36: [id number] 00 Activity self-care Activity Active Jenelle deficit 12-30 Wing 09:36: [id number] 00 Safety risk for Safety Active Jenelle hospitaliza 12-30 Wing tion 09:36: [id number] 00 Medication knowledge/s Meds Resolve 2020-01-13 Jenelle kill d 12-30 09:30:00 Wing deficit: pt 09:36: [id number] 00 Medication oral med Meds Resolve 2020-01-13 Jenelle assistance d 12-30 09:30:00 Wing required 09:36: [id number] 00 Medication injectable Meds Resolve 2020-01-13 Jenelle med d 12-30 09:30:00 Wing assistance 09:36: [id number] required 00 Medication potential Meds Resolve 2020-01-13 Jenelle clinically d 12-30 09:30:00 Wing significant 09:36: [id number] medication 00 issue Diagnoses knowledge/s Diagnoses Active Jenelle kill 12-30 Wing deficit: pt 09:36: [id number] 00 Musculoskel transfer Musculoske Active Jenelle etal assistance letal 12-30 Wing required 09:36: [id number] 00 Allergies, Adverse Reactions, Alerts Allergy Name Allergy Status Severity Reaction(s) Onset Inactive Treating Comments Type Date Date Clinician fentanyl Base Active Unknown Reaction Alivia Ingredient Unknown 12-05 Laratta [id number] Sulfa Allergen Active Unknown Reaction Alivia (Sulfonamide Group Unknown 12-05 Laratta Antibiotics) [id number] baclofen Base Active Unknown AMS Jenelle Ingredient 12-29 Wing [id number] nitrofuranto Base Active Unknown leukopenia/n Jenelle in Ingredient eutropenia 12-29 Maciej [id number] Medications Ordered Filled Start Stop Current Ordering Indication Dosage Frequency Signature Comments Components Medication Medication Date Date Medication? Clinician (SIG) Name Name cyanocobala cyanocobala Yes Barrera Unknown Unknown min (vit min (vit 3- MD,Nabila B-12) 1,000 B-12) 1,000 mcg tablet mcg tablet folic acid folic acid Yes Barrera Unknown Unknown 1 mg tablet 1 mg tablet 3-05 ,Nabila losartan 50 losartan 50 Yes Barrera Unknown Unknown mg tablet mg tablet 3- ,Nabila PHENobarbit PHENobarbit Yes Barrera Unknown Unknown al 64.8 mg al 64.8 mg 3-05 ,Nabila tablet tablet hydroxychlo hydroxychlo Yes Barrera Unknown Unknown roquine 200 roquine 200 3-05 ,Nabila mg tablet mg tablet acetaminoph acetaminoph Yes Barrera Unknown Unknown en ER 650 en ER 650 3-05 ,Nabila mg mg tablet,exte tablet,exte nded nded release release aspirin 325 aspirin 325 2019- Yes Barrera Unknown Unknown mg tablet mg tablet 3-05 ,Nabila rosuvastati rosuvastati Yes Barrera Unknown Unknown n 5 mg n 5 mg 3-05 MD,Nabila tablet tablet calcium calcium 2019- Yes Barrera Unknown Unknown carb,cit ER carb,cit ER 12-29 MD,Nabila 600 mg 600 mg calcium-vit calcium-vit D3 500 unit D3 500 unit tablet,ext. tablet,ext. release release amLODIPine amLODIPine 2019- Yes Barrera Unknown Unknown 10 mg 10 mg 12-29- MD,Nabila tablet tablet nebivolol 5 nebivolol 5 Yes Barrera Unknown Unknown mg tablet mg tablet 12-29 MD,Nabila gabapentin gabapentin Yes Barrera Unknown Unknown 600 mg 600 mg 12-29 MD,Nabila tablet tablet amLODIPine amLODIPine Yes Barrera Unknown Unknown 10 mg 10 mg 12-30 MD,Nabila tablet tablet Vital Signs Vital Name Observation Time Observation Value Comments SYSTOLIC mm[Hg] 2020-01-18 18:11:02 134 mm[Hg] mm[Hg] Method: Sit DIASTOLIC mm[Hg] 2020-01-18 18:11:02 68 mm[Hg] mm[Hg] Method: Sit PULSE 2020-01-18 18:11:02 76 /min /min RESP RATE 2020-01-18 18:11:02 18 /min /min TEMP 2020-01-18 18:11:02 98.3 [degF] Procedures This patient has no known procedures. Results This patient has no known results.
--- OUTSIDE RECORDS SUMMARY | 2020-02-15 10:37 | XMS REPORT | Continuity of Care Document ---
:1960 External Reference #:[id number] Author Name ANALI Rowe (transmitted by agent of provider Jumana Moreno) Address [address] [place] [address] Care Team Providers Name Role Phone Nabila Barrera MD - Internal Care Team Information Fish Bait Processing Supervisor [phone] Medicine Jamaal Wynn MD - Internal Medicine Care Team Information Fish Bait Processing Supervisor [phone] Mark Thompson MD - Dermatology Care Team Information Fish Bait Processing Supervisor [phone] Cisco Mcfarland - Nurse Care Team Information Fish Bait Processing Supervisor [phone] Practitioner Alonzo Lebron MD - Rheumatology Care Team Information Fish Bait Processing Supervisor [phone] Problems Active Problems Provider Date Systemic lupus erythematosus Nabila Barrera M.D. Onset: 05/09/2012 Medications [facility] (Current) Use Encounter Emile Hawkins M.D. Onset: [...] Note: phenobarb level 26.27 Aug 2017; in INSTALLATION AND REPAIR TECHNICIAN database [address] García [...] 180tabs Z79.899 Cisco Mcfarland, 200mg by mouth SE[employer]IC TANK SERVICE TECHNICIAN Tablets twice a day M32.14 M32.9 Rosuvastatin Calcium 1 tab by mouth 45tabs Niurka Gonzalez, DAISHA 01/19/2019 5mg every other day Tablets at bedtime Amlodipine Besylate Take 1 Tablet By 90tabs I10 Nabila Barrera, 09/16/2018 10mg Mouth Every Day M.D. Tablets Calcium 500+D3 1 tab by mouth 180tabs M85.89 Cisco Mcfarland, SEPTIC TANK SERVICE TECHNICIAN 12/18/2017 twice a day [id number] Tablets Phenobarbital 1 tab by mouth 60tabs [...] Code Status Date Vaccine Reaction Lot # [id number] Given 08/26/2019 Influenza Virus Vaccine, [id number] Quadrivalent ([id number]), Derived From Cell 83310 Given 07/15/2019 Pneumococcal Conjugate Vaccine [id number] Valent For Intramuscular Use 43370 Given 08/27/2018 Influenza Virus Vaccine, Pt. tolerated well. [id number] Quadrivalent, Split, Preservative Free 20904 Given 07/01/2018 Pneumonia Vaccine [id number] 57300 Given 07/17/2017 Influenza Virus Vaccine, Quadrivalent, Split, Preservative Free 91012 Given 07/15/2016 Influenza Virus Vaccine, [id number] Quadrivalent, Split, Preservative Free 58018 Given 08/03/2015 Influenza Virus Vaccine, No reaction noted [id number] Quadrivalent, Split, Preservative Free 65857 Given 06/05/2015 Tdap - Tetanus/Diptheria/Acellular Pertussis 61786 Given 07/21/2014 Influenza Virus Vaccine, [id number] Quadrivalent, Split, Preservative Free 85108 Refused 08/12/2013 Tdap - Tetanus/Diptheria/Acellular Pertussis 56858 Refused 08/12/2013 Flu Vaccine Split Virus Preservative [...] Test Result H/L Range Note Urinalysis Profile 01/12/2020 [facility] Urine Color Straw [address] [place] [address] [phone] Urine Appearance Clear Urine Specific [place] 1.010 Normal 1.010-1.030 Urine pH 7.0 Normal 5-9 Urine Urobilinogen Negative Negative Urine Ketones Negative Negative Urine Protein 2+(100 mg/dL) Abnormal Negative Urine Leukocytes Trace Abnormal Negative Urine Blood Negative Negative * * Abnormal Negative 1 Urine Nitrite Negative Negative Urine Bilirubin Negative Negative Urine Glucose Negative Negative Urine White Blood Cell Trace(0-5/hpf) Absent Urine Red Blood Cell Trace(0-2/hpf) Absent Urine Bacteria Absent Absent Urine Squamous Epithelial Cell Present Abnormal Absent Laboratory test 01/12/2020 [facility] Lactic Acid 0.8 mmol/L Normal 0.5-2.0 [address] [place], [place] [id number] [phone] Urine Culture And 01/12/2020 [facility] Urine SEE RESULT [address] [place] [address] [phone] CBC Auto Diff 01/12/2020 [facility] White Blood 3.2 Low 3.5- 10.[address] Count 10^3/[place] [address] [phone] Red Blood Count 3.35 10^6/uL Low 3.70-4.87 Hemoglobin 9.3 g/dL Low 12.0-16.0 Hematocrit 29 % Low 35-47 Mean Corpuscular Volume 85 fL Normal 80-97 Mean Corpuscular Hemoglobin 28 pg Normal 27-31 Mean Corpuscular HGB Conc 33 g/dL Normal 31-36 Red Cell Distribution Width 14 % Normal 10-15 Platelet Count 217 10^3/uL Normal 150-450 Mean Platelet Volume 7.1 fL Low 7.4-10.4 Abs Neutrophils 1.6 10^3/uL Normal 1.5-7.7 Abs Lymphocytes 1.2 10^3/uL Normal 1.0-4.8 Abs Monocytes 0.3 10^3/uL Normal 0-0.8 Abs Eosinophils 0.1 10^3/uL Normal 0-0.6 Abs Basophils 0.0 10^3/uL Normal 0-0.2 Abs Nucleated RBC 0.0 10^3/uL Granulocyte % 51.2 % Lymphocyte % 36.7 % Monocyte % 8.5 % Eosinophil % 2.3 % Basophil % 1.3 % Nucleated Red Blood Cells % 0.1 Comp Metabolic 01/12/2020 [facility] Sodium 138 mmol/L Normal 135-[address] [place] [address] [phone] Potassium 4.0 mmol/L Normal 3.5-5.0 Chloride 106 mmol/L Normal 101-111 Co2 Carbon Dioxide 24 mmol/L Normal 22-32 Anion Gap 8 mmol/L Normal 2-11 Glucose 86 mg/dL Normal 70-100 Blood Urea Nitrogen 21 mg/dL Normal 6-24 Creatinine 1.51 mg/dL High 0.51-0.95 BUN/Creatinine Ratio 13.9 Normal 8-20 Calcium 9.0 mg/dL Normal 8.6-10.3 Total Protein 7.3 g/dL Normal 6.4-8.9 Albumin 3.9 g/dL Normal 3.2-5.2 Globulin 3.4 g/dL Normal 2-4 Albumin/Globulin Ratio 1.1 Normal 1-3 Total Bilirubin 0.20 mg/dL Normal 0.2-1.0 Alkaline Phosphatase 43 U/L Normal 34-104 Alt 12 U/L Normal 7-52 Ast 18 U/L Normal 13-39 Egfr Non- 35.3 >60 Egfr 42.7 >60 4 Laboratory test 01/12/2020 [facility] TSH 1.17 Normal 0.34- 5.[address] (Thyroid mcIU/[place] [address] [employer]) [phone] Urine Culture And 12/21/2019 [facility] Urine SEE RESULT [address] [place] [place] [address] [phone] Urinalysis 12/21/2019 [facility] Urine Color Yellow Profile [address] [place] [address] [phone] Urine Appearance Cloudy Urine Specific [place] 1.010 Normal 1.010-1.030 Urine pH 7.0 Normal 5-9 Urine Urobilinogen Negative Negative Urine Ketones Negative Negative Urine Protein 1+(30 mg/dL) Abnormal Negative Urine Leukocytes 3+ Abnormal Negative Urine Blood Negative Negative * * Abnormal Negative 6 Urine Nitrite Negative Negative Urine Bilirubin Negative Negative Urine Glucose Negative Negative Urine White Blood Cell 3+(>20/hpf) Abnormal Absent Urine Red Blood Cell 2+(6-10/hpf) Abnormal Absent Urine Bacteria 1+ Abnormal Absent CBC Auto 12/21/2019 [facility] White Blood 3.8 10^3/uL Normal 3.5-10.[address] [place] [address] [phone] Red Blood Count 3.49 10^6/uL Low 3.70-4.87 Hemoglobin 10.0 g/dL Low 12.0-16.0 Hematocrit 30 % Low 35-47 Mean Corpuscular Volume 86 fL Normal 80-97 Mean Corpuscular Hemoglobin 29 pg Normal 27-31 Mean Corpuscular HGB Conc 33 g/dL Normal 31-36 Red Cell Distribution Width 15 % Normal 10-15 Platelet Count 153 10^3/uL Normal 150-450 7 Mean Platelet Volume 7.8 fL Normal 7.4-10.4 [...] Red Blood Cells % 0.1 Comp Metabolic 12/21/2019 [facility] Sodium 138 mmol/L Normal 135-[address] [place] [address] [phone] Potassium 4.2 mmol/L Normal 3.5-5.0 Chloride 104 [...] Egfr Non- 27.1 >60 Egfr 32.7 >60 8 CBC Auto 12/15/2019 [facility] White Blood 4.4 10^3/uL Normal 3.5-10.[address] [place] [address] [phone] Red Blood Count 3.44 10^6/uL Low 3.70-4.87 [...] Blood Cells % 0.1 Comp Metabolic 12/15/2019 [facility] Sodium 136 mmol/L Normal 135-[address] [place] [address] [phone] Chloride 106 mmol/L Normal 101-111 Co2 Carbon [...] Egfr Non- 25.4 >60 Egfr 30.7 >60 9 Potassium 5.6 mmol/L High 3.5-5.0 Anion Gap 5 mmol/L Normal 2-11 CBC Auto 08/19/2019 [facility] White Blood 7.4 10^3/uL Normal 3.5-10.[address] [place] [address] [phone] Red Blood Count 3.55 10^6/uL Low 3.70-4.87 [...] Blood Cells % 0.0 Comp Metabolic 08/19/2019 [facility] Sodium 140 mmol/L Normal 135-145 Panel [address] [place] [address] [phone] Chloride 107 mmol/L Normal 101-111 Co2 Carbon [...] Egfr Non- 36.4 >60 Egfr 44.0 >60 10 Potassium 4.2 mmol/L Normal 3.5-5.0 Anion Gap 6 mmol/L Normal 2-11 Ast 24 U/L Normal 13-39 Urinalysis Profile 08/19/2019 [facility] Urine Color Yellow [address] [place] [address] [phone] Urine Appearance Cloudy Urine Specific [place] 1.011 Normal 1.010-1.030 Urine pH 7.0 Normal [...] Present Abnormal Absent Urine Culture And 08/19/2019 [facility] Urine Culture SEE RESULT [address] [place] [address] [phone] 1 *Ascorbic acid is present which may interfere with detection of blood. 2 [facility] Severe Sepsis and Septic Shock Management Bundle Measure requires all lactic acids initially measuring >2.0 mmol/L be repeated. 3 SEE RESULT BELOW Name: THAIS RAO : [address]: Abdirizak Sheppard MD Acct: [id number] Unit: [id number] AGE: 59 Location: ED Re01/12/20 SEX: F Status: DEP ER SPEC: [id number] GENET: 01/12/20-[address]: Abdirizak Sheppard MD REQ: [id number] RECD: 01/12/20 STATUS: MATTHEW MARTINEZ DR: Nabila Barrera MD _ SOURCE: URINE [facility]: ORDERED: Urine Culture Procedure Result Reported Site Urine Culture Final 01/15/20- 0816 ML Organism 1 MRSA [place] Count 1-10,000 (Few) CFU/ML Organism 2 NORMAL PREMA [place] Count 25-50,000 (Moderate) CFU/ML Consistent with previous results. 1. MRSA M.I.C. RX --------- ------ Penicillin >=0.5 R Gentamicin <=0.5 S Linezolid 2 S Nitrofurantoin <=16 S Oxacillin R * Quinupristin/Dalfopristin <=0.25 S Rifampin <=0.5 S Tetracycline <=1 S Doxycycline - Deduced S * Minocycline - Deduced S Trimethoprim/Sulfamethoxazole 160 R Vancomycin 1 S Imipenem-Deduced R * Ampicillin/Sulbactam-Deduced R Cefazolin-Deduced R CONTINUED ON NEXT PAGE DEPARTMENT OF PATHOLOGY, [address] [place] [address] Edwin Chanel M.D. Director [facility] # [id number] Specimen: [id number] Collected: 01/12/20 Received: 01/12/20 (Continued) Procedure Result Reported Site Urine Culture Final (continued) * These antibiotics are not available in the [facility] Formulary Contact the Microbiology Department for any additional antibiotic reporting. * ML - Main Lab . END OF REPORT DEPARTMENT OF PATHOLOGY, [address] [place] [address] Edwin Chanel M.D. Director [facility] # [id number] 4 Because ethnic data is not always [...] 5 Kidney failure <15 (or dialysis) 5 SEE RESULT BELOW Name: THAIS RAO : [address]: Marko Raygoza MD Acct: [id number] Unit: [id number] AGE: 59 Location: [address] Re12/21/19 SEX: F Status: ADM Dorothy SPEC: [id number] GENET: 12/21/19-[address] [facility] [address]: Ti BRIONES REQ: [id number] RECD: 12/21/19 STATUS: MATTHEW MARTINEZ DR: Nabila Barrera MD _ SOURCE: URINE SPDESC: ORDERED: Urine Culture Procedure Result Reported Site Urine Culture Final 12/22/19- 1119 ML Organism 1 STREP GROUP B [place] Count >100,000 (Many) CFU/ML Organism 2 NORMAL PREMA [place] Count 10-25,000 (Moderate) CFU/ML Susceptibility testing of penicillins and other B-lactams approved by FDA for treatment of Streptococcus pyogenes (Group A Strep) and Streptococcus agalactiae (Group B Strep) is not necessary for clinical purposes and need not be done routinely, since as with vancomycin, resistant strains have not been recognized. (CLSI A097-D04;p.66) Positive isolates will be saved for one week. Please call the Microbiology Laboratory if further susceptibility testing is needed. * ML - Main Lab . END OF REPORT DEPARTMENT OF PATHOLOGY, [address] [place] [address] Edwin Chanel M.D. Director [facility] # [id number] 6 *Ascorbic acid is present which may interfere with detection of blood. 7 Platelet count confirmed by estimate 8 Because ethnic data is not always readily [...] 15-29 5 Kidney failure <15 (or dialysis) 9 Because ethnic data is not always readily [...] 15-29 5 Kidney failure <15 (or dialysis) 10 Because ethnic data is not always readily [...] 15-29 5 Kidney failure <15 (or dialysis) 11 SEE RESULT BELOW Name: THAIS RAO : [address]: Magen Christensen MD Acct: [id number] Unit: [id number] AGE: 59 Location: ED Re08/19/19 SEX: F Status: DEP ER SPEC: [id number] GENET: 08/19/[address] [facility] [address]: Magen Christensen MD REQ: [id number] RECD: 08/19/19 STATUS: MATTHEW MARTINEZ DR: Nabila Barrera MD _ SOURCE: URINE SPDESC: ORDERED: Urine Culture Procedure Result Reported Site Urine Culture Final 08/21/19937 ML Organism 1 CITROBACTER BRAAKII Bur[place]um Count 50-75,000 (Many) CFU/ML Organism 2 STREP GROUP B [place] Count 10-25,000 (Moderate) CFU/ML Susceptibility testing of penicillins and other B-lactams approved by FDA for treatment of Streptococcus pyogenes (Group A Strep) and Streptococcus agalactiae (Group B Strep) is not necessary for clinical purposes and need not be done routinely, since as with vancomycin, resistant strains have not been recognized. (CLSI V973-J53;p.66) Positive isolates will be saved for one week. Please call the Microbiology Laboratory if further susceptibility testing is needed. 1. CITROBACTER BRAAKII M.I.C. RX --------- ------ Cefazolin >=64 R Cefepime <=1 S Ceftriaxone <=1 S Ciprofloxacin <=0.25 S Gentamicin <=1 S Levofloxacin <=0.12 S Meropenem <=0.25 S Nitrofurantoin <=16 S Tetracycline <=1 S CONTINUED ON NEXT PAGE DEPARTMENT OF PATHOLOGY, [address] [place] [address] Edwin Chanel M.D. Director [facility] # [id number] Specimen: [id number] Collected: 08/19/19 Received: 08/19/19 (Continued) Procedure Result Reported Site Urine Culture Final (continued) 08/21/19937 1. CITROBACTER BRAAKII (continued) M.I.CDandy RX --------- ------ Pipercillin/Tazobactam <=4 S Trimethoprim/Sulfamethoxazole <=20 S Amoxicillin/Clavulanic Acid R Aztreonam <=1 S Contact the Microbiology Department for any additional antibiotic reporting. * ML - Main Lab . END OF REPORT DEPARTMENT OF PATHOLOGY, [address] [place] [address] Edwin Chanel M.D. Director [facility] # [id number] Procedures Date Code Description Status 06/16/2019 665292467 Diabetic Retinal Eye Exam Completed 01/28/2019 338229583 Bone Mineral Density Test Completed 01/28/2019 99624066 Mammogram Completed 01/13/2018 08020678 Mammogram Completed 12/25/2017 821436214 Diabetic Retinal Eye Exam Completed 09/27/2016 57512017 Mammogram Completed 04/30/2016 260827978 Bone Mineral Density Test Completed 09/07/2015 87312861 Mammogram Completed 08/22/2014 65509165 Colonoscopy Completed 06/22/2014 16538716 Mammogram Completed 06/18/2013 35697446 Mammogram Completed 10/27/2009 74812912 Colonoscopy Completed Medical Devices Description No Information Available Encounters Type Date Location Provider Dx Diagnosis Office Visit 12/30/2019 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 R26.2 Difficulty in 9:09a Assoc,pc [place], [place] walking, not Hospitalists elsewhere classified D71 Functional disorders of polymorphonuclear neutrophils R52 Pain, unspecified M32.9 Systemic lupus erythematosus, unspecified Office Visit 12/28/2019 [facility] R26.2 Difficulty in 9:09a Assoc,pc [place], [place] walking, not Hospitalists elsewhere classified R52 Pain, unspecified N18.3 Chronic kidney disease, stage 3 (moderate) M32.9 Systemic lupus erythematosus, unspecified Office Visit 12/27/2019 9:08a [facility] Scott R26.2 Difficulty in Assoc,pc [place], [place] walking, not Hospitalists elsewhere classified N18.3 Chronic kidney disease, stage 3 (moderate) R52 Pain, unspecified M32.9 Systemic lupus erythematosus, unspecified Office Visit 12/26/2019 9:05a [facility] Scott R26.2 Difficulty in Assoc,pc [place], [place] walking, not Hospitalists elsewhere classified G40.909 Epilepsy, unsp, not intractable, without status epilepticus M32.9 Systemic lupus erythematosus, unspecified R52 Pain, unspecified Office Visit 12/25/2019 [facility] D71 Functional disorders 9:05a Assoc,teodora Ayers NP of polymorphonuclear Hospitalists neutrophils R26.2 Difficulty in walking, not elsewhere classified G40.909 Epilepsy, unsp, not intractable, without status epilepticus N18.3 Chronic kidney disease, stage 3 (moderate) Office Visit 12/24/2019 9:04a [facility] N39.0 Urinary tract Assoc,pc Armen, TICK ERADICATOR infection, site Hospitalists not specified N18.3 Chronic kidney disease, stage 3 (moderate) M32.9 Systemic lupus erythematosus, unspecified G40.909 Epilepsy, unsp, not intractable, without status epilepticus Office Visit 12/22/2019 [facility] Jessica Manjarrez L89.152 Pressure ulcer 8:00a AT [facility] John TICK ERADICATOR of sacral region, stage 2 Office Visit 12/21/2019 [facility] Jina Sutton, R53.1 Weakness 8:54a Assoc,pc TICK ERADICATOR Hospitalists N39.0 Urinary tract infection, site not specified I12.9 Hypertensive chronic kidney disease w stg 1-4/unsp chr kdny N18.3 Chronic kidney disease, stage 3 (moderate) M32.9 Systemic lupus erythematosus, unspecified Office Visit 10/08/2019 2:00p [facility] Internal Jennifer Zimmer, R21 Rash and other Medicine - N.P. nonspecific skin Ccmob eruption Office Visit 08/26/2019 10:30a [facility] Internal Nabila Barrera, N39.0 Urinary tract Medicine - M.D. infection, site Ccmob not specified K64.8 Other hemorrhoids K59.03 Drug induced constipation M79.671 Pain in right foot Z23 Encounter for immunization Assessments Date Code Description Provider 01/17/2020 M79.601 Pain in right arm Jennifer Zimmer, N.P. 01/17/2020 M79.604 Pain in right leg Jennifer Goran, N.P. 01/17/2020 D50.9 Iron deficiency anemia, unspecified Jennifer Zimmer, N.P. 12/30/2019 N39.0 Urinary tract infection, site not ANALI Rowe specified 12/30/2019 R26.2 Difficulty in walking, not elsewhere AANLI Rowe classified 12/30/2019 D71 Functional disorders of [...] ANALI Rowe 12/29/2019 M32.9 Systemic lupus erythematosus, Valerie Wylie PA unspecified 12/28/2019 R26.2 Difficulty in walking, not elsewhere ANALI Rowe classified 12/28/2019 R52 Pain, unspecified ANALI Rowe 12/28/2019 N18.3 Chronic kidney disease, stage 3 ANALI Rowe (moderate) 12/28/2019 M32.9 Systemic lupus erythematosus, ANALI Rowe unspecified 12/27/2019 R26.2 Difficulty in walking, not elsewhere Scott Perez PA classified 12/27/2019 N18.3 Chronic kidney disease, stage 3 Scott Perez PA (moderate) 12/27/2019 R52 Pain, unspecified Scott Perez PA 12/27/2019 M32.9 Systemic lupus erythematosus, Scott Perez PA unspecified 12/26/2019 R26.2 Difficulty in walking, not elsewhere Scott Perez PA classified 12/26/2019 G40.909 Epilepsy, unspecified, not Scott Perez PA intractable, without status epilepticus 12/26/2019 M32.9 Systemic lupus erythematosus, Scott Perez PA unspecified 12/26/2019 R52 Pain, unspecified Scott Perez PA 12/25/2019 D71 Functional disorders of Kimmie Shortle, TICK ERADICATOR polymorphonuclear neutrophils 12/25/2019 R26.2 Difficulty in walking, not elsewhere Kimmie Ayers, TICK ERADICATOR classified 12/25/2019 G40.909 Epilepsy, unspecified, not Kimmie Shortle, TICK ERADICATOR intractable, without status epilepticus 12/25/2019 N18.3 Chronic kidney disease, stage 3 Kimmie Ayers, TICK ERADICATOR (moderate) 12/24/2019 N39.0 Urinary tract infection, site not Kimmie Shortle, TICK ERADICATOR specified 12/24/2019 N18.3 Chronic kidney disease, stage 3 Kimmie Shortnaomi, TICK ERADICATOR (moderate) 12/24/2019 M32.9 Systemic lupus erythematosus, Kimmie Ayers, TICK ERADICATOR unspecified 12/24/2019 G40.909 Epilepsy, unspecified, not Kimmie Ayers, TICK ERADICATOR intractable, without status epilepticus 12/23/2019 N39.0 Urinary [...] Z23 Encounter for immunization Nabila Barrera M.D. Plan of Treatment 01/17/2020 - Jennifer Zimmer N.P.M79.601 Pain in right armComments:If your arm and leg pain return, please contact the office.Your forms have been sent in to help you continue with your home health care.M79.604 Pain in right legD50.9 Iron deficiency anemia, unspecified Functional Status Functional Condition Comment Date Status Standard walker is used to ambulate Active Quad cane is used with the left hand to ambulate Active Mental Status Description No Information Available Referrals Description No Information Available
--- OUTSIDE RECORDS SUMMARY | 2020-02-15 10:37 | XMS REPORT ---
:1960 Author Organization [facility] Care Team Providers Name Role Phone Unavailable Unavailable Unavailable Problems Condition Condition Condition Status Onset Resolution Last Treating Comments Name Details Category Date Date Treatment Clinician Date Cerebral Cerebral Diagnosis Active Jenelle infarction, infarction, 12-29 Wing unspecified unspecified [id number] Pain frequent Pain Mgmt Active Jenelle pain 12-30 Wing 09:36: [id number] Nutrition nutritional Nutrition Resolve 2020-01-13 Jenelle restriction d 12-30 09:30:00 Wing s 09:36: [id number] 00 Elimination urinary Eliminatio Resolve 2020-01-13 Jenelle incontinenc n d 12-30 09:30:00 Wing e 09:36: [id number] 00 Elimination UTI within Eliminatio Resolve 2020-01-13 Jenelle past 14 n d 12-30 09:30:00 Wing days 09:36: [id number] 00 Activity ADL Activity Active Jenelle assistance 12-30 Wing required 09:36: [id number] 00 Activity self-care Activity Active Jenelle deficit 12-30 Wing 09:36: [id number] 00 Safety risk for Safety Active Jenelle hospitaliza 12-30 Wing tion 09:36: [id number] 00 Medication knowledge/s Meds Resolve 2020-01-13 Jenelle kill d 12-30 09:30:00 Wing deficit: pt 09:36: [id number] 00 Medication oral med Meds Resolve 2020-01-13 Jenelle assistance d 12-30 09:30:00 Wing required 09:36: [id number] 00 Medication injectable Meds Resolve 2020-01-13 Jenelle med d 12-30 09:30:00 Wing assistance 09:36: [id number] required 00 Medication potential Meds Resolve 2020-01-13 Jenelle clinically d 12-30 09:30:00 Wing significant 09:36: [id number] medication 00 issue Diagnoses knowledge/s Diagnoses Active Jenelle kill 12-30 Wing deficit: pt 09:36: [id number] 00 Musculoskel transfer Musculoske Active Jenelle etal assistance letal 12-30 Maciej required 09:36: [id number] 00 Nutrition nutritional Nutrition Active Maria A restriction 01-26 Tree s 10:00: [employer] 00 [id number] Elimination urinary Eliminatio Active Maria A incontinenc n 01-26 Tree e 10:00: [employer] 00 [id number] Allergies, Adverse Reactions, Alerts Allergy Name Allergy Status Severity Reaction(s) Onset Inactive Treating Comments Type Date Date Clinician fentanyl Base Active Unknown Reaction Alivia Ingredient Unknown 12-05 Laratta [id number] Sulfa Allergen Active Unknown Reaction Alivia (Sulfonamide Group Unknown 12-05 [place] Antibiotics) [id number] baclofen Base Active Unknown AMS Jenelle Ingredient 3 Wing [id number] nitrofuranto Base Active Unknown leukopenia/n Jenelle in Ingredient eutropenia 12-29 Wing [id number] Medications Ordered Filled Start Stop Current Ordering Indication Dosage Frequency Signature Comments Components Medication Medication Date Date Medication? Clinician (SIG) Name Name cyanocobala cyanocobala Yes Barrera Unknown Unknown min (vit min (vit 3-05 MD,Nabila B-12) 1,000 B-12) 1,000 mcg tablet mcg tablet folic acid folic acid Yes Barrera Unknown Unknown 1 mg tablet 1 mg tablet 3-05 MD,Nabila losartan 50 losartan 50 2019- Yes Barrera Unknown Unknown mg tablet mg tablet 3-05 MD,Nabila PHENobarbit PHENobarbit Yes Barrera Unknown Unknown aL 64.8 mg aL 64.8 mg 3-05 MD,Nabila tablet tablet hydroxychlo hydroxychlo Yes Barrera Unknown Unknown roquine 200 roquine 200 3-05 MD,Nabila mg tablet mg tablet acetaminoph acetaminoph Yes Barrera Unknown Unknown en ER 650 en ER 650 3-05 MD,Nabila mg mg tablet,exte tablet,exte nded nded release release aspirin 325 aspirin 325 2019-0 Yes Barrera Unknown Unknown mg tablet mg tablet - MD,Nabila rosuvastati rosuvastati 0 Yes Barrera Unknown Unknown n 5 mg n 5 mg 12-29 MD,Nabila tablet tablet calcium calcium 2019-0 Yes Barrera Unknown Unknown carb,cit ER carb,cit ER 3 MD,Nabila 600 mg 600 mg calcium-vit calcium-vit D3 500 unit D3 500 unit tablet,ext. tablet,ext. release release amLODIPine amLODIPine 2019-0 2019- Yes Barrera Unknown Unknown 10 mg 10 mg 12-29- MD,Nabila tablet tablet nebivoloL 5 nebivoloL 5 2019- Yes Barrera Unknown Unknown mg tablet mg tablet - MD,Nabila gabapentin gabapentin 2019-0 Yes Barrera Unknown Unknown 600 mg 600 mg - MD,Nabila tablet tablet amLODIPine amLODIPine 2019-0 Yes Barrera Unknown Unknown 10 mg 10 mg 12-30 MD,Nabila tablet tablet Procedures This patient has no known procedures. Results This patient has no known results.
--- OUTSIDE RECORDS SUMMARY | 2020-02-15 10:37 | XMS REPORT ---
:1960 Author Organization [facility] Care Team Providers Name Role Phone Unavailable Unavailable Unavailable Problems Condition Condition Condition Status Onset Resolution Last Treating Comments Name Details Category Date Date Treatment Clinician Date Cerebral Cerebral Diagnosis Active Jenelle infarction, infarction, 12-29 Wing unspecified unspecified [id number] Pain frequent Pain Mgmt Active Jenelle pain 12-30 Wing 09:36: [id number] Nutrition nutritional Nutrition Resolve 2020-01-13 Jenelle restriction d 12-30 09:30:00 Wing s 09:36: [id number] 00 Elimination urinary Eliminatio Resolve 2020-01-13 Jenelle incontinenc n d 12-30 09:30:00 Wing e 09:36: [id number] 00 Elimination UTI within Eliminatio Resolve 2020-01-13 Jenelle past 14 n d 12-30 09:30:00 Wing days 09:36: [id number] 00 Activity ADL Activity Active Jenelle assistance 12-30 Wing required 09:36: [id number] 00 Activity self-care Activity Active Jenelle deficit 12-30 Wing 09:36: [id number] 00 Safety risk for Safety Active Jenelle hospitaliza 12-30 Wing tion 09:36: [id number] 00 Medication knowledge/s Meds Resolve 2020-01-13 Jenelle kill d 12-30 09:30:00 Wing deficit: pt 09:36: [id number] 00 Medication oral med Meds Resolve 2020-01-13 Jenelle assistance d 12-30 09:30:00 Wing required 09:36: [id number] 00 Medication injectable Meds Resolve 2020-01-13 Jenelle med d 12-30 09:30:00 Wing assistance 09:36: [id number] required 00 Medication potential Meds Resolve 2020-01-13 Jenelle clinically d 12-30 09:30:00 Wing significant 09:36: [id number] medication 00 issue Diagnoses knowledge/s Diagnoses Active Jenelle kill 12-30 Wing deficit: pt 09:36: [id number] 00 Musculoskel transfer Musculoske Active Jenelle etal assistance letal 12-30 Maciej required 09:36: [id number] 00 Nutrition nutritional Nutrition Active Maria A restriction 01-26 Tree s 10:00: [employer] 00 [id number] Elimination urinary Eliminatio Active Maria A incontinenc n 01-26 Tree e 10:00: [employer] 00 [id number] Allergies, Adverse Reactions, Alerts Allergy Name Allergy Status Severity Reaction(s) Onset Inactive Treating Comments Type Date Date Clinician fentanyl Base Active Unknown Reaction Alivia Ingredient Unknown 12-05 Laratta [id number] Sulfa Allergen Active Unknown Reaction Alivia (Sulfonamide Group Unknown 12-05 [place] Antibiotics) [id number] baclofen Base Active Unknown AMS Jenelle Ingredient 3 Wing [id number] nitrofuranto Base Active Unknown leukopenia/n Jenelle in Ingredient eutropenia 12-29 Wing [id number] Medications Ordered Filled Start Stop Current Ordering [...] tablet mg tablet - MD,Nabila rosuvastati rosuvastati Yes Barrera Unknown Unknown n 5 mg n 5 mg 12-29 MD,Nabila tablet tablet calcium calcium 2019- Yes Barrera Unknown Unknown carb,cit ER carb,cit ER 12-29 MD,Nabila 600 mg 600 mg calcium-vit calcium-vit D3 500 unit D3 500 unit tablet,ext. tablet,ext. release release amLODIPine amLODIPine 2019- Barrera Unknown Unknown 10 mg 10 mg 12-29- MD,Nabila tablet tablet nebivoloL 5 nebivoloL 5 Yes Barrera Unknown Unknown mg tablet mg tablet 12-29 MD,Nabila gabapentin gabapentin Yes Barrera Unknown Unknown 600 mg 600 mg - MD,Nabila tablet tablet amLODIPine amLODIPine Yes Barrera Unknown Unknown 10 mg 10 mg 12-30 MD,Nabila tablet tablet Vital Signs Vital Name Observation Time Observation Value Comments SYSTOLIC mm[Hg] 2020-01-27 18:11:11 118 mm[Hg] mm[Hg] Method: Sit DIASTOLIC mm[Hg] 2020-01-27 18:11:11 74 mm[Hg] mm[Hg] Method: Sit PULSE 2020-01-27 18:11:11 74 /min /min RESP RATE 2020-01-27 18:11:11 16 /min /min TEMP 2020-01-27 18:11:11 97.8 [degF] Procedures This patient has no known procedures. Results This patient has no known results.
--- OUTSIDE RECORDS SUMMARY | 2020-02-15 10:37 | XMS REPORT ---
:1960 Author Organization [facility] Care Team Providers Name Role Phone Unavailable Unavailable Unavailable Problems Condition Condition Condition Status Onset Resolution Last Treating Comments Name Details Category Date Date Treatment Clinician Date Cerebral Cerebral Diagnosis Active 2020-0 Jenelle infarction, infarction, 12-29 Wing unspecified unspecified [id number] Pain frequent Pain Mgmt Active 2019-0 Jenelle pain 12-30 Wing 09:36: [id number] 00 Nutrition nutritional Nutrition Active 2019-0 Jenelle restriction 12-30 Wing s 09:36: [id number] 00 Elimination urinary Eliminatio Active 2020-0 Jenelle incontinenc n 12-30 Wing e 09:36: [id number] 00 Elimination UTI within Eliminatio Active 2019-0 Jenelle past 14 n 12-30 Wing days 09:36: [id number] 00 Activity ADL Activity Active 2020-0 Jenelle assistance 12-30 Wing required 09:36: [id number] 00 Activity self-care Activity Active 2020-0 Jenelle deficit 12-30 Wing 09:36: [id number] 00 Safety risk for Safety Active 2019-0 Jenelle hospitaliza 12-30 Wing tion 09:36: [id number] 00 Medication knowledge/s Meds Active 2020-0 Jenelle kill 12-30 Wing deficit: pt 09:36: [id number] 00 Medication oral med Meds Active 2020-0 Jenelle assistance 12-30 Wing required 09:36: [id number] 00 Medication injectable Meds Active 2020-0 Jenelle med 12-30 Wing assistance 09:36: [id number] required 00 Medication potential Meds Active 2020-0 Jenelle clinically 12-30 Wing significant 09:36: [id number] medication 00 issue Diagnoses knowledge/s Diagnoses Active 2020-0 Jenelle kill 12-30 Wing deficit: pt 09:36: [id number] 00 Musculoskel transfer Musculoske Active 2020-0 Jenelle etal assistance letal 12-30 Wing required 09:36: [id number] 00 Allergies, Adverse Reactions, Alerts Allergy Name Allergy Status Severity Reaction(s) Onset Inactive Treating Comments Type Date Date Clinician fentanyl Base Active Unknown Reaction Alivia Ingredient Unknown 12-05 Laratta [id number] Sulfa Allergen Active Unknown Reaction Alivia (Sulfonamide Group Unknown 12-05 [place] Antibiotics) [id number] baclofen Base Active Unknown AMS Jenelle Ingredient 12-29 Wing [id number] nitrofuranto Base Active Unknown leukopenia/n Jenelle in Ingredient eutropenia 12-29 Wing [id number] Medications Ordered Filled Start Stop Current Ordering Indication Dosage Frequency Signature Comments Components Medication Medication Date Date Medication? Clinician (SIG) Name Name cyanocobala cyanocobala Yes Barrera Unknown Unknown min (vit min (vit - MD,Nabila B-12) 1,000 B-12) 1,000 mcg tablet mcg tablet folic acid folic acid Yes Barrera Unknown Unknown 1 mg tablet 1 mg tablet 3-05 MD,Nabila losartan 50 losartan 50 Yes Barrera Unknown Unknown mg tablet mg tablet - MD,Nabila PHENobarbit PHENobarbit Yes Barrera Unknown Unknown al 64.8 mg al 64.8 mg 3- MD,Nabila tablet tablet hydroxychlo hydroxychlo Yes Barrera [...] Barrera Unknown Unknown 10 mg 10 mg 12-29 MD,Nabila tablet tablet nebivolol 5 nebivolol 5 Yes Bruce Unknown Unknown mg tablet mg tablet 12-29 MD,Nabila gabapentin gabapentin Yes Bruce Unknown Unknown 600 mg 600 mg 12-29 MD,Nabila tablet tablet amLODIPine amLODIPine Yes Bruce Unknown Unknown 10 mg 10 mg 12-30 MD,Nabila tablet tablet Vital Signs Vital Name Observation Time Observation Value Comments RESP RATE 2020-01-01 18:10:45 18 /min /min Procedures This patient has no known procedures. Results This patient has no known results.
--- OUTSIDE RECORDS SUMMARY | 2020-02-15 10:37 | XMS REPORT ---
:1960 Author Organization [facility] Care Team Providers Name Role Phone Unavailable Unavailable Unavailable Problems Condition Condition Condition Status Onset Resolution Last Treating Comments Name Details Category Date Date Treatment Clinician Date Cerebral Cerebral Diagnosis Active 2020-0 Jenelle infarction, infarction, 12-29 Wing unspecified unspecified [id number] Pain frequent Pain Mgmt Active 2019-0 Jenelle pain 12-30 Wing 09:36: [id number] Nutrition nutritional Nutrition Active 2019-0 Jenelle restriction 12-30 Wing s 09:36: [id number] 00 Elimination urinary Eliminatio Active 2020-0 Jenelle incontinenc n 12-30 Wing e 09:36: [id number] 00 Elimination UTI within Eliminatio Active 2019-0 Jenelle past 14 n 12-30 Wing days 09:36: [id number] 00 Activity ADL Activity Active 2020-0 Jenelle assistance 12-30 Wing required 09:36: [id number] 00 Activity self-care Activity Active 2020-0 Jenelle deficit 12-30 Wing 09:36: [id number] 00 Safety risk for Safety Active 2019-0 Jenelle hospitaliza 12-30 Wing tion 09:36: [id number] 00 Medication knowledge/s Meds Active 2020-0 Jenelle kill 12-30 Wing deficit: pt 09:36: [id number] 00 Medication oral med Meds Active 2020-0 Jenelle assistance 12-30 Wing required 09:36: [id number] 00 Medication injectable Meds Active 2020-0 Jenelle med 12-30 Wing assistance 09:36: [id number] required 00 Medication potential Meds Active 2020-0 Jenelle clinically 12-30 Wing significant 09:36: [id number] medication 00 issue Diagnoses knowledge/s Diagnoses Active 2020-0 Jenelle kill 12-30 Wing deficit: pt 09:36: [id number] 00 Musculoskel transfer Musculoske Active 2020-0 Jenelle etal assistance letal 12-30 Wing required 09:36: [id number] 00 Allergies, Adverse Reactions, Alerts Allergy Name Allergy Status Severity Reaction(s) Onset Inactive Treating Comments Type Date Date Clinician fentanyl Base Active Unknown Reaction Alivia Ingredient Unknown 12-05 Laratta [id number] Sulfa Allergen Active Unknown Reaction Alivia (Sulfonamide Group Unknown 12-05 [place] Antibiotics) [id number] baclofen Base Active Unknown AMS Jenelle Ingredient 12-29 Wing [id number] nitrofuranto Base Active Unknown leukopenia/n Jenelle in Ingredient eutropenia 12-29 Wing [id number] Medications Ordered Filled Start Stop Current Ordering [...]
--- OUTSIDE RECORDS SUMMARY | 2020-02-15 10:37 | XMS REPORT ---
:1960 Author Organization [facility] Care Team Providers Name Role Phone Unavailable Unavailable Unavailable Problems Condition Condition Condition Status Onset Resolution Last Treating Comments Name Details Category Date Date Treatment Clinician Date Cerebral Cerebral Diagnosis Active Jenelle infarction, infarction, 12-29 Wing unspecified unspecified [id number] Pain frequent Pain Mgmt Active Jenelle pain 12-30 Wing 09:36: [id number] 00 Nutrition nutritional Nutrition Resolve 2020-01-13 Jenelle restriction d 12-30 09:30:00 Wing s 09:36: [id number] 00 Elimination urinary Eliminatio Resolve 2020-01-13 Jenelle incontinenc n d 12-30 09:30:00 Wing e 09:36: [id number] 00 Elimination UTI within Eliminatio Resolve 2020-01-13 Jenelle past 14 n d 12-30 09:30:00 Wing days 09:36: [id number] 00 Activity ADL Activity Active Jenelle assistance 12-30 Wing required 09:36: [id number] 00 Activity self-care Activity Active Jenelle deficit 12-30 Wing 09:36: [id number] 00 Safety risk for Safety Active Jenelle hospitaliza 12-30 Wing tion 09:36: [id number] 00 Medication knowledge/s Meds Resolve 2020-01-13 Jenelle kill d 12-30 09:30:00 Wing deficit: pt 09:36: [id number] 00 Medication oral med Meds Resolve 2020-01-13 Jenelle assistance d 12-30 09:30:00 Wing required 09:36: [id number] 00 Medication injectable Meds Resolve 2020-01-13 Jenelle med d 12-30 09:30:00 Wing assistance 09:36: [id number] required 00 Medication potential Meds Resolve 2020-01-13 Jenelle clinically d 12-30 09:30:00 Wing significant 09:36: [id number] medication 00 issue Diagnoses knowledge/s Diagnoses Active Jenelle kill 12-30 Wing deficit: pt 09:36: [id number] 00 Musculoskel transfer Musculoske Active Jenelle etal assistance letal 12-30 Maciej required 09:36: [id number] 00 Nutrition nutritional Nutrition Active Maria A restriction 01-26 Tree s 10:00: [employer] 00 [id number] Elimination urinary Eliminatio Active Maria A incontinenc n 01-26 Tree e 10:00: [employer] 00 [id number] Allergies, Adverse Reactions, Alerts Allergy Name Allergy Status Severity Reaction(s) Onset Inactive Treating Comments Type Date Date Clinician fentanyl Base Active Unknown Reaction Alivia Ingredient Unknown 12-05 Laratta [id number] Sulfa Allergen Active Unknown Reaction Alivia (Sulfonamide Group Unknown 12-05 [place] Antibiotics) [id number] baclofen Base Active Unknown AMS Jenelle Ingredient 3 Wing [id number] nitrofuranto Base Active Unknown leukopenia/n Jenelle in Ingredient eutropenia 12-29 Wing [id number] Medications Ordered Filled Start Stop Current Ordering [...] Observation Time Observation Value Comments SYSTOLIC mm[Hg] 2020-02-10 18:11:25 112 mm[Hg] mm[Hg] Method: Sit DIASTOLIC mm[Hg] 2020-02-10 18:11:25 58 mm[Hg] mm[Hg] Method: Sit PULSE 2020-02-10 18:11:25 78 /min /min RESP RATE 2020-02-10 18:11:25 16 /min /min TEMP 2020-02-10 18:11:25 97.9 [degF] Procedures This patient has no known procedures. Results This patient has no known results.
--- NOTE | 2020-02-15 10:39 | ED ---
Back Pain - HPI Summary HPI Summary: The patient is a 59-year-old female presenting to [facility] [place] Emergency Department with a chief complaint of low back pain gradually onset since yesterday. She reports she initially began experiencing non-radiating left flank pain yesterday rated 8 -9/10 in severity. She denies any nausea, vomiting, fevers, or chills. She has since developed low back pain. Shhe had gone to the bathroom and was unable to get up secondary to the pain. Movement aggravates the pain. No history of trauma or heavy lifting. Patient has right hemiplegia secondary to previous stroke. Past medical history includes Lupus, thyroid disease, anemia, angina, DVT, dyslipidemia, hypertension, PE, GERD, irritable bowel, CVA, TIA, headaches , migraines, anxiety, depression, bilateral hip replacement, hysterectomy, oophorectomy. Former smoker. No alcohol or substance use. Medications reviewed. Allergies noted. - History of Current Complaint Chief Complaint: EDBackInjuryPain Stated Complaint: BACK PAIN PER EMS Time Seen by Provider: 02/15/20 10:28 Hx Obtained From: Patient Onset/Duration: Gradual Onset, Still Present Onset/Duration: Started Hours Ago Timing: Constant Back Pain Location: Is Discrete @ - low Severity Initially: Moderate Severity Currently: Moderate Pain Intensity: 8 Pain Scale Used: 0-10 Numeric Character: Aching Aggravating Symptom(s): Movement Alleviating Symptom(s): Nothing Associated Signs And Symptoms: Positive: Flank Pain - left. Negative: Fever, Other - chills, nausea, vomiting - Allergies/Home Medications Allergies/Adverse Reactions: Allergies Allergy/AdvReac Type Severity Reaction Status Date / Time fentanyl Allergy rash, Verified 12/21/19 06:45 hives, itchy Sulfa (Sulfonamide Allergy Facial Verified 12/21/19 06:45 Antibiotics) Redness/Flushing baclofen AdvReac Intermediate Altered Verified 12/21/19 06:45 Mental Status nitrofurantoin AdvReac Intermediate Leukopenia/ Verified 12/21/19 06:45 neutropenia Home Medications: Home Medications PHENobarbital TAB(*) 64.8 mg PO BID 09/07/13 [History Confirmed 02/15/20] Aspirin EC TAB* [Ecotrin EC TAB*] 325 mg PO DAILY 07/12/19 [History Confirmed ] Calcium Carbonate/Vitamin D3 [Calcium 600-Vit D3 800 Caplet] 1 tab PO BID [History Confirmed 02/15/20] Gabapentin TAB(NF) [Neurontin 600 mg TAB(NF)] 600 mg PO BID 08/19/19 [History Confirmed 02/15/20] Nebivolol TAB (NF) [Bystolic TAB (NF)] 5 mg PO DAILY 08/19/19 [History Confirmed 02/15/20] Rosuvastatin (NF) [Crestor (NF)] 5 mg PO EVERY OTHER DAY 08/19/19 [History Confirmed 02/15/20] amLODIPine TAB* [Norvasc 5 mg TAB*] 10 mg PO DAILY 08/19/19 [History Confirmed 02/15/20] Cyanocobalamin TAB* [Vitamin B12 TAB*] 1,000 mcg PO DAILY #90 tab 12/29/19 [Rx Confirmed 02/15/20] Folic Acid TAB* [Folvite TAB*] 1 mg PO DAILY #90 tab 12/29/19 [Rx Confirmed ] Losartan TAB* [Cozaar TAB*] 50 mg PO DAILY #90 tab 12/29/19 [Rx Confirmed ] tiZANidine TAB* [Zanaflex TAB*] 2 mg PO Q8H PRN #90 tab 12/29/19 [Rx Confirmed 02/15/20] Acetaminophen TAB* [Tylenol TAB*] 650 mg PO BID PRN 02/15/20 [History Confirmed 02/15/20] Cranberry Fruit Extract [Cranberry Concentrate] 500 mg PO DAILY 02/15/20 [ History Confirmed 02/15/20] Hydroxychloroquine TAB* [Plaquenil TAB*] 200 mg PO BID 02/15/20 [History Confirmed 02/15/20] Methocarbamol TAB* [Robaxin 500 MG TAB*] 500 mg PO TID PRN #12 tab 02/15/20 [Rx] Multivitamins/Minerals TAB* [Theragran/minerals TAB*] 1 tab PO DAILY 02/15/20 [ History Confirmed 02/15/20] Triamcinolone 0.1% CREAM (NF) [Kenalog 0.1% Cream (NF)] 1 applic TOPICAL BID [History Confirmed 02/15/20] oxyCODONE TAB* [Roxycodone TAB 5 mg*] 5 mg PO Q6H PRN #10 tab MDD 4 02/15/20 [Rx ] PMH/Surg Hx/FS Hx/Imm Hx Endocrine/Hematology History: Reports: Hx Anticoagulant Therapy, Hx Systemic Lupus Erythematosus, Hx Thyroid Disease - THYROIDECTOMY, Hx Anemia - HISTORY Denies: Hx Bone Marrow Disease, Hx Diabetes, Hx Sickle Cell Disease Cardiovascular History: Reports: Hx Angina, Hx Deep Vein Thrombosis, Hx Hypercholesterolemia - unkown, Hx Hypertension, Hx Syncope, Other Cardiovascular Problems/Disorders - STROKE Denies: Hx Congestive Heart Failure, Hx Myocardial Infarction, Hx Pacemaker/ ICD, Hx Rheumatic Fever, Hx Valvular Heart Disease Respiratory History: Reports: Hx Pulmonary Embolism Denies: Hx Asthma, Hx Chronic Obstructive Pulmonary Disease (COPD), Hx Sleep Apnea, Other Respiratory Problems/Disorders GI History: Reports: Hx Gastroesophageal Reflux Disease, Hx Hiatal Hernia, Hx Irritable Bowel Denies: Hx Jaundice History: Reports: Hx Chronic Renal Failure - stage 2, Hx Kidney Infection, Other Problems/Disorders - UTI, vag abscess. SEES DR. Lozano ABOUT KIDNEYS Denies: Hx Dialysis, Hx Renal Disease Musculoskeletal History: Reports: Hx Arthritis, Hx Back Problems, Hx Orthopedic Injury, Other Musculoskeletal History - osteopenia, r hip pain x 1 year, l hip hemiarthroplasty Denies: Hx Tendonitis Sensory History: Reports: Hx Cataracts, Hx Contacts or Glasses - GLASSES SOMETIMES, Hx Deafness - [place] in right ear, Hx Hearing Problem - right hear clogged, Other Sensory Impairments - right hemiparesis secondary to CVA Hx Denies: Hx Glaucoma, Hx Hearing Aid Opthamlomology History: Reports: Hx Cataracts, Hx Contacts or Glasses - GLASSES SOMETIMES, Other Sensory Impairments - right hemiparesis secondary to CVA Hx Denies: Hx Glaucoma Neurological History: Reports: Hx CVA - with right hemiplegia , Hx Headaches, Hx Migraine, Hx Seizures, Hx Transient Ischemic Attacks (TIA), Other Neuro Impairments/Disorders - LUPUS Denies: Hx Dementia, Hx Nerve Disease Psychiatric History: Reports: Hx Anxiety, Hx Depression Denies: Hx Panic Disorder - Cancer History Hx Chemotherapy: No Hx Radiation Therapy: No - Surgical History Surgical History: Yes Surgery Procedure, Year, and Place: BILAT HIP REPLACEMENT;. HYSTERECTOMY;. OOPHERECTOMY;. VAGINAL ABSCESS Hx Anesthesia Reactions: No - Immunization History Date of Tetanus Vaccine: unk Date of Influenza Vaccine: unk Infectious Disease History: No Infectious Disease History: Reports: Hx of Known/Suspected MRSA, Hx Shingles, History Other Infectious Disease - herpes Denies: Hx Clostridium Difficile, Hx Hepatitis, Hx Tuberculosis, Hx Known/ Suspected VRE, Hx Known/Suspected VRSA, Traveled Outside the [place] in Last 30 Days - Family History Known Family History: Positive: Cardiac Disease, Hypertension, Diabetes - Social History Alcohol Use: None Hx Substance Use: No Substance Use Type: Reports: None Hx Tobacco Use: No Smoking Status (MU): Former Smoker Amount Used/How Often: only smoked for weeks Have You Smoked in the Last Year: No Review of Systems Negative: Fever, Chills Negative: Vomiting, Nausea Positive: flank pain - left Positive: Myalgia - low back All Other Systems Reviewed And Are Negative: Yes Physical Exam - Summary Physical Exam Summary: VITAL SIGNS: Reviewed. GENERAL: Patient is a well-developed and nourished female who is lying comfortable in the stretcher. Patient is not in any acute respiratory distress. HEAD AND FACE: No signs of trauma. No ecchymosis, hematomas or skull depressions. No sinus tenderness. EYES: PERRL, EOMI x 2, No injected conjunctiva, no nystagmus. EARS: Hearing grossly intact. Ear canals and tympanic membranes are within normal limits. MOUTH: Oropharynx within normal limits. NECK: Supple, trachea is midline, no adenopathy, no JVD, no carotid bruit, no c- spine tenderness, neck with full ROM. CHEST: Symmetric, no tenderness at palpation. LUNGS: Clear to auscultation bilaterally. No wheezing or crackles. CVS: Regular rate and rhythm, S1 and S2 present, no murmurs or gallops appreciated. ABDOMEN: Soft, non-tender. No signs of distention. No rebound, no guarding, and no masses palpated. Bowel sounds are normal. BACK: Paraspinal muscle tenderness bilaterally more on the left than the right, Questionable costovertebral angle tenderness. EXTREMITIES: FROM in all major joints, no edema, no cyanosis or clubbing. NEURO: Alert and oriented x 3. Chronic weakness on right side from previous stroke. No acute neurological deficits. Speech is normal and follows commands. SKIN: Dry and warm. Triage Information Reviewed: Yes Vital Signs On Initial Exam: Initial Vitals Temp Pulse Resp BP Pulse Ox 97.3 F 77 16 143/86 99 02/15/20 10:14 02/15/20 10:14 02/15/20 10:14 02/15/20 10:14 02/15/20 10:14 Vital Signs Reviewed: Yes Procedures - Sedation Patient Received Moderate/Deep Sedation with Procedure: No Diagnostics - Vital Signs Vital Signs Temp Pulse Resp BP Pulse Ox 02/15/20 10:14 97.3 F 77 16 143/86 99 - Laboratory Result Diagrams: 02/15/20 10:37 02/15/20 10:37 Lab Statement: Any lab studies that have been ordered have been reviewed, and results considered in the medical decision making process. - CT Abdomen/Pelvic CT CT Interpretation Completed By: Radiologist Summary of CT Findings: Impression: 1. Limited evaluation of the pelvis secondary to extensive beam hardening artifact from bilateral hip arthroplasty. 2. There is no appreciable hydronephrosis or nephrolithiasis within the limitations of the study. 3. Atherosclerosis. 4. Hiatal hernia. 5. Status post cholecystectomy with dilatation of the common duct. 6. Facet osteoarthritis, most pronounced along the lower lumbar spine, with mild degenerative disc disease. There is neuroforaminal narrowing along the lower lumbar spine. There is no osseous central canal stenosis. Dr. Webb has reviewed this report. Lumbar Spine CT CT Interpretation Completed By: Radiologist Summary of CT Findings: Impression: 1. Limited evaluation of the pelvis secondary to extensive beam hardening artifact from bilateral hip arthroplasty. 2. There is no appreciable hydronephrosis or nephrolithiasis within the limitations of the study. 3. Atherosclerosis. 4. Hiatal hernia. 5. Status post cholecystectomy with dilatation of the common duct. 6. Facet osteoarthritis, most pronounced along the lower lumbar spine, with mild degenerative disc disease. There is neuroforaminal narrowing along the lower lumbar spine. There is no osseous central canal stenosis. Dr. Webb has reviewed this report. Re-Evaluation - Re-Evaluation First Eval Re-Evaluation Time: 14:35 Comment: We discussed all results and plan for discharge. Back Pain Course/Dx - Course Assessment/Plan: The patient is a 59-year-old female presenting to [facility] [place] Emergency Department with a chief complaint of low back pain gradually onset since yesterday. She reports she initially began experiencing non-radiating left flank pain yesterday rated 8-9/10 in severity. She denies any nausea, vomiting, fevers, or chills. She has since developed low back pain. She had gone to the bathroom and was unable to get up secondary to the pain. Movement aggravates the pain. No history of trauma or heavy lifting. Patient has right hemiplegia secondary to previous stroke. Past medical history includes Lupus, thyroid disease, anemia, angina, DVT, dyslipidemia, hypertension, PE, GERD, irritable bowel, CVA, TIA, headaches, migraines, anxiety, depression, bilateral hip replacement, hysterectomy, oophorectomy. Former smoker. No alcohol or substance use. Medications reviewed. Allergies noted. In the ED course the patient was placed in a supervisor hand silvering, IV access obtained, IV fluids started. Patient given Percocet and Zofran. Past medical records reviewed. Blood test w/ o a significant abnormality except for chronic anemia, Chronic renal insufficiency. Abdominal and Lumbar CT Impression: 1. Limited evaluation of the pelvis secondary to extensive beam hardening artifact from bilateral hip arthroplasty. 2. There is no appreciable hydronephrosis or nephrolithiasis within the limitations of the study. 3. Atherosclerosis. 4. Hiatal hernia. 5. Status post cholecystectomy with dilatation of the common duct. 6. Facet osteoarthritis, most pronounced along the lower lumbar spine, with mild Degenerative disc disease. There is neuroforaminal narrowing along the lower lumbar spine. There is no osseous central canal stenosis. After the patient was given oxycodone the patients symptoms significantly improved. The patients pain is only 1 out of 10. The urinalysis is contaminated; therefore well send the urine for cultures. I discussed all the findings and test results with the patient. Patient was instructed to return to the emergency room immediately if any of the symptoms return or worsen. Plan of care was discussed with the patient, and she understands and agrees. All questions were answered at patient satisfaction. There were no further complaints or concerns. Lung exam before discharge: CTA B/L. Good air exchange. No wheezing or crackles heard. CVS: S1 and S2 present. No murmurs appreciated. Patient is alert and oriented x 3. Patient is hemodynamically stable. Patient will be discharged home with follow up with PCP in the next 2-3 days. - Diagnoses Provider Diagnoses: Back pain - Critical Care Time Critical Care Statement: Critical care time is provided exclusive of any time spent performing procedures. Discharge ED - Sign-Out/Discharge Documenting (check all that apply): Patient Departure - Patient will be discharged home. - Discharge Plan Condition: Stable Disposition: HOME Prescriptions: Methocarbamol TAB* [Robaxin 500 MG TAB*] 500 mg PO TID PRN #12 tab PRN Reason: Spasms - Back oxyCODONE TAB* [Roxycodone TAB 5 mg*] 5 mg PO Q6H PRN #10 tab MDD 4 PRN Reason: Pain - Moderate Patient Education Materials: Acute Low Back Pain (ED) Referrals: Nabila Barrera MD [Primary Care Provider] - 3 Days Additional Instructions: Please take medications as prescribed. Follow up with your primary care provider in 2-3 days. Return to the emergency department for any new or worsening symptoms. - Attestation Statements Document Initiated by Xiomaraibe: Yes Documenting Scribe: Tawanna Amos Provider For Whom Ophelia is Documenting (Include Credential): Ameya Webb MD Scribe Attestation: Tawanna Emerson, scribed for Ameya Webb MD on 02/15/20 at 1437. Status of Scribe Document: Ready
[2020-02-15 11:41] LABS: ABS Basophils 0.1 10^3/ul (0-0.2); ABS Eosinophils 0.1 10^3/ul (0-0.6); ABS Monocytes 0.3 10^3/ul (0-0.8); ABS Neutrophils 3.3 10^3/ul (1.5-7.7); Eosinophil % 1.6 %; Hematocrit 29 % (35-47); Hemoglobin 9.4 g/dL (12.0-16.0); Lymphocyte % 21.5 %; Mean Corpuscular HGB Conc 33 g/dL (31-36); Mean Corpuscular Hemoglobin 28 pg (27-31); Mean Corpuscular Volume 86 fL (80-97); Mean Platelet Volume 7.4 fL (7.4-10.4); Nucleated Red Blood Cells % 0.1; Platelet Count 186 10^3/uL (150-450); Red Blood Count 3.32 10^6 /uL (3.70-4.87); Red Cell Distribution Width 14 % (10-15); White Blood Count 4.8 10^3/uL (3.5-10.8)
[2020-02-15] MEDS ORDERED: Ondansetron ODT TAB* 4 MG SL PRN (11:52)
[2020-02-15] MEDS ORDERED: oxyCODONE/Acetamin 5/325 MG* TAB PO ONE (11:52)
[2020-02-15 11:59] LABS: Albumin 3.6 g/dL (3.2-5.2); BUN/Creatinine Ratio 15.6 (8-20); C Reactive Protein 4.12 mg/L (<8.01); Calcium 8.7 mg/dL (8.6-10.3); EGFR Non-African American 36.4 (>60); Globulin 3.6 g/dL (2-4); Magnesium 1.9 mg/dL (1.9-2.7); Potassium 4.4 mmol/L (3.5-5.0); Total Bilirubin 0.2 mg/dL (0.2-1.0); Total Protein 7.2 g/dL (6.4-8.9)
[2020-02-15 13:41] LABS: Urine Appearance Clear; Urine Bilirubin Negative (Negative); Urine Blood Negative (Negative); Urine Color Yellow; Urine Glucose Negative (Negative); Urine Ketones Negative (Negative); Urine Nitrite Negative (Negative); Urine Protein 2+(100 mg/dL) (Negative); Urine Specific Gravity 1.011 (1.010-1.030); Urine Urobilinogen Negative (Negative)
[2020-02-15 14:00] LABS: Urine Bacteria 1+ (Absent); Urine Red Blood Cell 2+(6-10/hpf) (Absent); Urine Squamous Epithelial Cell Present (Absent); Urine White Blood Cell 3+(>20/hpf) (Absent)
[2020-02-15 14:51] VITALS: BP 134/88
== END 2020-02-15 14:49 | disposition home or self-care (01) ==
LOC: ED 10:12
DX: M54.5 Low back pain (principal); R10.84 Generalized abdominal pain; M32.9 Systemic lupus erythematosus, unspecified; E03.9 Hypothyroidism, unspecified; D64.9 Anemia, unspecified; I12.9 Hypertensive chronic kidney disease with stage 1 through stage 4 chronic kidney disease, or unspecified chronic kidney disease; N18.9 Chronic kidney disease, unspecified; Z86.718 Personal history of other venous thrombosis and embolism; E78.5 Hyperlipidemia, unspecified; Z86.711 Personal history of pulmonary embolism; I70.90 Unspecified atherosclerosis; K21.9 Gastro-esophageal reflux disease without esophagitis; Z86.73 Personal history of transient ischemic attack (TIA), and cerebral infarction without residual deficits; Z87.891 Personal history of nicotine dependence; Z88.2 Allergy status to sulfonamides; Z79.82 Long term (current) use of aspirin; Z79.899 Other long term (current) drug therapy; Z79.01 Long term (current) use of anticoagulants; Z96.643 Presence of artificial hip joint, bilateral; Z86.14 Personal history of Methicillin resistant Staphylococcus aureus infection
CPT/HCPCS: 36415; 72131; 74176; 80053; 81003; 81015; 82550; 83690; 83735; 85025; 86140; 87086; 99283; A9270-GY

== ENCOUNTER 2022-01-08 18:38 | Observation (INO) ==
[2022-01-09] MEDS ORDERED: Al Hydrox/Mg Hydrox/Simet LIQ 30 ML UDC PO PRN (01:01)
[2022-01-09 01:45] LABS: Urine Appearance Turbid; Urine Bilirubin Negative (Negative); Urine Blood 1+ (Negative); Urine Color Yellow; Urine Glucose Negative (Negative); Urine Ketones Negative (Negative); Urine Nitrite Negative (Negative); Urine Protein 2+(100 mg/dL) (Negative); Urine Specific Gravity 1.013 (1.002-1.030); Urine Urobilinogen Negative (Negative)
[2022-01-09 01:58] LABS: Urine Bacteria 1+ (Absent); Urine Red Blood Cell Trace(0-2/hpf) (Absent); Urine Squamous Epithelial Cell Present (Absent); Urine White Blood Cell 3+(>20/hpf) (Absent)
[2022-01-09 02:10] LABS: Albumin 4.1 g/dL (3.2-5.2); Albumin/Globulin Ratio 1.2 (1-3); C Reactive Protein 2.89 mg/L (<8.01); Calcium 9.1 mg/dL (8.6-10.3); Globulin 3.4 g/dL (2-4); Potassium 4.1 mmol/L (3.5-5.0); Total Bilirubin 0.2 mg/dL (0.2-1.0); Total Protein 7.5 g/dL (6.4-8.9); eGFR CKD-EPI 22.9 (>60)
[2022-01-09 03:28] LABS: ABS Eosinophils 0.1 10^3/ul (0-0.6); ABS Lymphocytes 1.9 10^3/ul (1.0-4.8); ABS Monocytes 0.3 10^3/ul (0-0.8); ABS Neutrophils 1.7 10^3/ul (1.5-7.7); Eosinophil % 3.4 %; Hematocrit 27 % (35-47); Lymphocyte % 47.9 %; Mean Corpuscular HGB Conc 34 g/dL (31-36); Mean Corpuscular Hemoglobin 29 pg (27-31); Mean Corpuscular Volume 87 fL (80-97); Mean Platelet Volume 7.4 fL (7.4-10.4); Platelet Count 221 10^3/uL (150-450); Red Blood Count 3.09 10^6 /uL (3.70-4.87); Red Cell Distribution Width 14 % (10-15); White Blood Count 4.1 10^3/uL (3.5-10.8)
[2022-01-09] MEDS: Heparin 5000 UNITS/ML 1 mL VIAL SUBCUT SCH ×3 (05:47→22:14)
[2022-01-09 05:53] LABS: Erythrocyte Sed Rate 57 mm/Hr (0-29)
[2022-01-09] MEDS: cefTRIAXone 1 gm/50 mL NS BAG 1 GM/50 ML BAG IVPB SCH (06:27)
[2022-01-09] MEDS: DULoxetine DR 30 mg CAP PO SCH (08:14)
[2022-01-10] MEDS: Heparin 5000 UNITS/ML 1 mL VIAL SUBCUT SCH ×3 (06:06→21:11)
[2022-01-10] MEDS: DULoxetine DR 30 mg CAP PO SCH (07:42)
[2022-01-10] MEDS: cefTRIAXone 1 gm/50 mL NS BAG 1 GM/50 ML BAG IVPB SCH (08:32)
[2022-01-10 10:34] LABS: ABS Eosinophils 0.1 10^3/ul (0-0.6); ABS Lymphocytes 1.2 10^3/ul (1.0-4.8); ABS Monocytes 0.2 10^3/ul (0-0.8); ABS Neutrophils 1.6 10^3/ul (1.5-7.7); Eosinophil % 3.9 %; Hematocrit 30 % (35-47); Hemoglobin 9.9 g/dL (12.0-16.0); Lymphocyte % 37.5 %; Mean Corpuscular HGB Conc 33 g/dL (31-36); Mean Corpuscular Hemoglobin 29 pg (27-31); Mean Corpuscular Volume 88 fL (80-97); Mean Platelet Volume 7.3 fL (7.4-10.4); Platelet Count 227 10^3/uL (150-450); Red Blood Count 3.45 10^6 /uL (3.70-4.87); Red Cell Distribution Width 15 % (10-15); White Blood Count 3.1 10^3/uL (3.5-10.8)
[2022-01-10 11:31] LABS: Calcium 8.6 mg/dL (8.6-10.3); Potassium 4.2 mmol/L (3.5-5.0)
[2022-01-10 11:40] LABS: eGFR CKD-EPI 29.5 (>60)
[2022-01-10] MEDS ORDERED: Senna TAB 8.6 mg TAB PO PRN (14:51)
[2022-01-10] MEDS ORDERED: Magnesium Hydroxide LIQ 30 ML UDC PO PRN (14:51)
[2022-01-10] MEDS: Polyethylene Glycol 3350 17 GM PACKET PO SCH (21:03)
[2022-01-11 06:11] LABS: ABS Eosinophils 0.1 10^3/ul (0-0.6); ABS Lymphocytes 1.4 10^3/ul (1.0-4.8); ABS Monocytes 0.2 10^3/ul (0-0.8); ABS Neutrophils 1.1 10^3/ul (1.5-7.7); Eosinophil % 3.9 %; Hematocrit 26 % (35-47); Hemoglobin 8.9 g/dL (12.0-16.0); Lymphocyte % 50.5 %; Mean Corpuscular HGB Conc 34 g/dL (31-36); Mean Corpuscular Hemoglobin 29 pg (27-31); Mean Corpuscular Volume 86 fL (80-97); Mean Platelet Volume 7.4 fL (7.4-10.4); Nucleated Red Blood Cells % 0.1; Platelet Count 200 10^3/uL (150-450); Red Blood Count 3.06 10^6 /uL (3.70-4.87); Red Cell Distribution Width 14 % (10-15); White Blood Count 2.8 10^3/uL (3.5-10.8)
[2022-01-11 06:29] LABS: Calcium 8.3 mg/dL (8.6-10.3); Potassium 4.2 mmol/L (3.5-5.0); eGFR CKD-EPI 30.6 (>60)
[2022-01-11] MEDS: Heparin 5000 UNITS/ML 1 mL VIAL SUBCUT SCH ×2 (06:38→14:33)
[2022-01-11] MEDS: DULoxetine DR 30 mg CAP PO SCH (08:29)
[2022-01-11] MEDS: Polyethylene Glycol 3350 17 GM PACKET PO SCH (08:29)
[2022-01-11 11:15] VITALS: BP 129/71
[2022-01-11] MEDS: cefTRIAXone 1 gm/50 mL NS BAG 1 GM/50 ML BAG IVPB SCH (14:30)
== END 2022-01-11 16:30 | disposition home or self-care (01) ==
LOC: ED 18:38 → EDHOLD 01-09 01:01 → INTOOBSV 01-09 01:01 → SUATTDRO 01-09 01:01 → MED 01-09 04:09
PROVIDERS: ADMIT Hospitalist; ATTEND Internal Medicine

== ENCOUNTER 2022-09-16 17:08 | Inpatient (IN) ==
[2022-09-16 19:52] LABS: Hematocrit 32 % (35-47); Hemoglobin 10.3 g/dL (12.0-16.0); Mean Corpuscular HGB Conc 33 g/dL (31-36); Mean Corpuscular Hemoglobin 29 pg (27-31); Mean Corpuscular Volume 88 fL (80-97); Mean Platelet Volume 7.3 fL (7.4-10.4); Platelet Count 213 10^3/uL (150-450); Red Blood Count 3.58 10^6 /uL (3.70-4.87); Red Cell Distribution Width 14 % (10-15); White Blood Count 3.7 10^3/uL (3.5-10.8)
[2022-09-16 20:19] LABS: Albumin 4.2 g/dL (3.2-5.2); Albumin/Globulin Ratio 1.3 (1-3); C Reactive Protein 4.28 mg/L (<8.01); Calcium 8.9 mg/dL (8.6-10.3); Globulin 3.3 g/dL (2-4); Potassium 4.9 mmol/L (3.5-5.0); Total Bilirubin 0.2 mg/dL (0.2-1.0); Total Protein 7.5 g/dL (6.4-8.9); eGFR CKD-EPI 25.9 (>60)
[2022-09-17] MEDS ORDERED: HYDROcodone/ACETAMIN 5/325 mg TAB PO ONE (01:30)
[2022-09-17] MEDS ORDERED: Gabapentin 600 mg TAB (NF) PO ONE (04:34)
[2022-09-17] MEDS ORDERED: oxyCODONE/Acetamin 5/325 mg TAB PO ONE (09:17)
[2022-09-17 13:23] LABS: Urine Appearance Turbid; Urine Bilirubin Negative (Negative); Urine Blood Negative (Negative); Urine Color Amber; Urine Glucose Negative (Negative); Urine Ketones Trace (Negative); Urine Nitrite Negative (Negative); Urine Protein 3+(>=500 mg/dL) (Negative); Urine Specific Gravity 1.016 (1.002-1.030); Urine Urobilinogen Negative (Negative)
[2022-09-17 13:27] LABS: Urine Amorphous Crystals Present (Absent); Urine Bacteria 1+ (Absent); Urine Red Blood Cell Trace(0-2/hpf) (Absent); Urine Squamous Epithelial Cell Present (Absent); Urine White Blood Cell 3+(>20/hpf) (Absent)
[2022-09-17] MEDS: Enoxaparin 30 MG/0.3 ML SYR SUBCUT SCH (16:52)
[2022-09-17] MEDS: oxyCODONE/Acetamin 5/325 mg TAB PO PRN (16:53)
[2022-09-17] MEDS: Lactated Ringers 1000 ml BAG 1,000 ML IV SCH (23:06)
[2022-09-18] MEDS: oxyCODONE/Acetamin 5/325 mg TAB PO PRN (03:52)
[2022-09-18] MEDS: Lactated Ringers 1000 ml BAG 1,000 ML IV SCH (06:04)
[2022-09-18] MEDS ORDERED: cefTRIAXone 1 gm/50 mL D5W 1 GM/50 ML BAG IV SCH (07:45)
[2022-09-18] MEDS: cefTRIAXone 1 GM Q24H (ADVAN) IVPB SCH (10:37)
[2022-09-18] MEDS: CMCS: Nebivolol 2.5 mg TAB (NF) PO SCH (10:37)
[2022-09-18] MEDS: Aspirin EC 81 mg TAB.EC (enteric coated) PO SCH (10:39)
[2022-09-18 12:05] LABS: Hematocrit 30 % (35-47); Hemoglobin 9.5 g/dL (12.0-16.0); Mean Corpuscular HGB Conc 32 g/dL (31-36); Mean Corpuscular Hemoglobin 29 pg (27-31); Mean Corpuscular Volume 88 fL (80-97); Mean Platelet Volume 7.6 fL (7.4-10.4); Platelet Count 188 10^3/uL (150-450); Red Blood Count 3.35 10^6 /uL (3.70-4.87); Red Cell Distribution Width 14 % (10-15); White Blood Count 3.4 10^3/uL (3.5-10.8)
[2022-09-18 12:36] LABS: Calcium 8.3 mg/dL (8.6-10.3); Magnesium 2.2 mg/dL (1.9-2.7); Potassium 4.7 mmol/L (3.5-5.0); eGFR CKD-EPI 25.3 (>60)
[2022-09-18] MEDS: Enoxaparin 30 MG/0.3 ML SYR SUBCUT SCH (14:27)
[2022-09-18 16:00] LABS: Ferritin 24.4 ng/mL (11-307)
[2022-09-19] MEDS: Morphine 2 MG/ML SYRINGE IV PRN ×2 (00:44→14:57)
[2022-09-19] MEDS: CMCS: Nebivolol 2.5 mg TAB (NF) PO SCH (09:39)
[2022-09-19] MEDS: Aspirin EC 81 mg TAB.EC (enteric coated) PO SCH (09:40)
[2022-09-19 10:03] LABS: ABS Eosinophils 0.1 10^3/ul (0-0.6); ABS Lymphocytes 0.9 10^3/ul (1.0-4.8); ABS Monocytes 0.1 10^3/ul (0-0.8); ABS Neutrophils 1.5 10^3/ul (1.5-7.7); Eosinophil % 5.5 %; Hematocrit 27 % (35-47); Hemoglobin 8.6 g/dL (12.0-16.0); Mean Corpuscular HGB Conc 33 g/dL (31-36); Mean Corpuscular Hemoglobin 29 pg (27-31); Mean Corpuscular Volume 88 fL (80-97); Mean Platelet Volume 7.5 fL (7.4-10.4); Platelet Count 170 10^3/uL (150-450); Red Blood Count 3.02 10^6 /uL (3.70-4.87); Red Cell Distribution Width 14 % (10-15); White Blood Count 2.7 10^3/uL (3.5-10.8)
[2022-09-19] MEDS: cefTRIAXone 1 GM Q24H (ADVAN) IVPB SCH (10:15)
[2022-09-19 10:33] LABS: Blood Urea Nitrogen 32 mg/dL (6-24); CO2 Carbon Dioxide 25 mmol/L (22-32); Calcium 8.2 mg/dL (8.6-10.3); Chloride 107 mmol/L (101-111); Glucose 98 mg/dL (70-100); Sodium 137 mmol/L (135-145); eGFR CKD-EPI 26.5 (>60)
[2022-09-19 10:39] LABS: Anion Gap 5 mmol/L (2-11)
[2022-09-19] MEDS: Enoxaparin 30 MG/0.3 ML SYR SUBCUT SCH (14:53)
[2022-09-20 07:38] LABS: ABS Eosinophils 0.2 10^3/ul (0-0.6); ABS Monocytes 0.2 10^3/ul (0-0.8); ABS Neutrophils 1.2 10^3/ul (1.5-7.7); Eosinophil % 6.1 %; Hematocrit 26 % (35-47); Hemoglobin 8.7 g/dL (12.0-16.0); Lymphocyte % 40.1 %; Mean Corpuscular HGB Conc 33 g/dL (31-36); Mean Corpuscular Hemoglobin 29 pg (27-31); Mean Corpuscular Volume 88 fL (80-97); Mean Platelet Volume 7.3 fL (7.4-10.4); Nucleated Red Blood Cells % 0.1; Platelet Count 159 10^3/uL (150-450); Red Blood Count 2.98 10^6 /uL (3.70-4.87); Red Cell Distribution Width 14 % (10-15); White Blood Count 2.6 10^3/uL (3.5-10.8)
[2022-09-20 07:57] LABS: Calcium 8.4 mg/dL (8.6-10.3); Potassium 4.5 mmol/L (3.5-5.0)
[2022-09-20 08:03] LABS: eGFR CKD-EPI 28.9 (>60)
[2022-09-20] MEDS: Aspirin EC 81 mg TAB.EC (enteric coated) PO SCH (10:20)
[2022-09-20] MEDS: CMCS: Nebivolol 2.5 mg TAB (NF) PO SCH (10:21)
[2022-09-20] MEDS: Morphine 2 MG/ML SYRINGE IV PRN (10:26)
[2022-09-20] MEDS: cefTRIAXone 1 GM Q24H (ADVAN) IVPB SCH (10:42)
[2022-09-20] MEDS: Acetaminophen IV 1 GM/100ML 1,000 MG/100 ML BAG IV SCH ×2 (11:59→21:11)
[2022-09-20] MEDS: Enoxaparin 30 MG/0.3 ML SYR SUBCUT SCH (14:25)
[2022-09-20] MEDS ORDERED: Polyethylene Glycol 3350 17 GM PACKET PO ONE (21:12)
[2022-09-20] MEDS ORDERED: Polyethylene Glycol 3350 17 GM PACKET PO PRN (21:12)
[2022-09-20] MEDS: oxyCODONE/Acetamin 5/325 mg TAB PO PRN (22:02)
[2022-09-21] MEDS: Acetaminophen IV 1 GM/100ML 1,000 MG/100 ML BAG IV SCH ×2 (05:38→14:51)
[2022-09-21 08:20] LABS: Hematocrit 28 % (35-47); Hemoglobin 9.1 g/dL (12.0-16.0); Mean Corpuscular HGB Conc 32 g/dL (31-36); Mean Corpuscular Hemoglobin 29 pg (27-31); Mean Corpuscular Volume 89 fL (80-97); Mean Platelet Volume 7.2 fL (7.4-10.4); Platelet Count 179 10^3/uL (150-450); Red Cell Distribution Width 14 % (10-15); White Blood Count 2.4 10^3/uL (3.5-10.8)
[2022-09-21 08:38] LABS: Calcium 8.2 mg/dL (8.6-10.3); Potassium 4.9 mmol/L (3.5-5.0); eGFR CKD-EPI 29.5 (>60)
[2022-09-21] MEDS: cefTRIAXone 1 GM Q24H (ADVAN) IVPB SCH (10:01)
[2022-09-21] MEDS: oxyCODONE/Acetamin 5/325 mg TAB PO PRN (10:02)
[2022-09-21] MEDS: Aspirin EC 81 mg TAB.EC (enteric coated) PO SCH (10:02)
[2022-09-21] MEDS: CMCS: Nebivolol 2.5 mg TAB (NF) PO SCH (10:03)
[2022-09-21 12:05] LABS: ABS Eosinophils 0.1 10^3/ul (0-0.6); ABS Lymphocytes 1.1 10^3/ul (1.0-4.8); ABS Monocytes 0.2 10^3/ul (0-0.8); ABS Neutrophils 0.9 10^3/ul (1.5-7.7); Eosinophil % 6.2 %; Lymphocyte % 47.1 %; Nucleated Red Blood Cells % 0.1
[2022-09-21] MEDS: Enoxaparin 30 MG/0.3 ML SYR SUBCUT SCH (14:52)
[2022-09-21] MEDS ORDERED: Morphine 2 MG/ML SYRINGE IV PRN (15:50)
[2022-09-22] MEDS: Morphine 2 MG/ML SYRINGE IV PRN ×2 (03:46→10:29)
[2022-09-22 07:14] LABS: CO2 Carbon Dioxide 17 mmol/L (22-32); Calcium 7.8 mg/dL (8.6-10.3); Chloride 108 mmol/L (101-111); Sodium 135 mmol/L (135-145)
[2022-09-22 07:17] LABS: Anion Gap 10 mmol/L (2-11)
[2022-09-22 07:19] LABS: Blood Urea Nitrogen 35 mg/dL (6-24); Glucose 72 mg/dL (70-100); eGFR CKD-EPI 28.8 (>60)
[2022-09-22] MEDS: Aspirin EC 81 mg TAB.EC (enteric coated) PO SCH (10:31)
[2022-09-22] MEDS: CMCS: Nebivolol 2.5 mg TAB (NF) PO SCH (10:32)
[2022-09-22 11:28] LABS: ABS Eosinophils 0.1 10^3/ul (0-0.6); ABS Lymphocytes 0.9 10^3/ul (1.0-4.8); ABS Monocytes 0.2 10^3/ul (0-0.8); ABS Neutrophils 1.1 10^3/ul (1.5-7.7); Eosinophil % 5.8 %; Hematocrit 27 % (35-47); Hemoglobin 8.8 g/dL (12.0-16.0); Lymphocyte % 39.1 %; Mean Corpuscular HGB Conc 32 g/dL (31-36); Mean Corpuscular Hemoglobin 29 pg (27-31); Mean Corpuscular Volume 89 fL (80-97); Mean Platelet Volume 7.1 fL (7.4-10.4); Nucleated Red Blood Cells % 0.1; Platelet Count 176 10^3/uL (150-450); Red Blood Count 3.04 10^6 /uL (3.70-4.87); Red Cell Distribution Width 14 % (10-15); White Blood Count 2.4 10^3/uL (3.5-10.8)
[2022-09-22] MEDS: Enoxaparin 30 MG/0.3 ML SYR SUBCUT SCH (15:05)
[2022-09-23] MEDS: Morphine 2 MG/ML SYRINGE IV PRN (00:31)
[2022-09-23 06:35] VITALS: BP 106/69
[2022-09-23] MEDS: CMCS: Nebivolol 2.5 mg TAB (NF) PO SCH (09:35)
[2022-09-23] MEDS: Aspirin EC 81 mg TAB.EC (enteric coated) PO SCH (09:35)
[2022-09-23] MEDS ORDERED: Magnesium Hydroxide LIQ 30 ML UDC PO ONE (09:44)
== END 2022-09-23 11:55 | disposition home or self-care (01) | DRG 92 ==
LOC: ED 17:08 → EDHOLD 09-17 11:43 → INTOOBSV 09-17 11:43 → SUATTDRO 09-17 11:43 → MED 09-17 19:40 → SUATTDRO 09-19 16:00 → MED 09-21 12:24
PROVIDERS: ADMIT Internal Medicine; ATTEND Internal Medicine

== ENCOUNTER 2023-04-07 08:42 | Inpatient (IN) ==
[2023-04-07] MEDS ORDERED: Morphine 2 MG/ML SYRINGE IV ONE ×2 (09:19→10:48)
[2023-04-07 16:18] LABS: ABS Eosinophils 0.1 10^3/uL (0.0-0.5); ABS Lymphocytes 1.3 10^3/uL (1.0-4.8); ABS Monocytes 0.3 10^3/uL (0.0-0.9); ABS Neutrophils 1.6 10^3/uL (1.5-7.6); ABS Nucleated RBC 0.01 10^3/ul; Eosinophil % 3.8 %; Hematocrit 27.7 % (35-45); Lymphocyte % 38.4 %; Mean Corpuscular Hemoglobin 28.1 pg (27-33); Mean Corpuscular Hgb Conc 32.5 g/dL (31-36); Mean Corpuscular Volume 86.3 fL (80-97); Mean Platelet Volume 7.1 fL (7.5-11.2); Nucleated Red Blood Cells % 0.2 /100 WBC (0.0-0.4); Platelet Count 190 10^3/uL (150-450); Red Blood Count 3.21 10^6/uL (3.63-4.92); Red Cell Distribution Width 13.9 % (12-17); White Blood Count 3.3 10^3/uL (3.8-11.8)
[2023-04-07 16:29] LABS: Urine Appearance Cloudy; Urine Bilirubin Negative (Negative); Urine Blood Negative (Negative); Urine Color Yellow; Urine Glucose Negative (Negative); Urine Ketones Negative (Negative); Urine Nitrite Negative (Negative); Urine Protein 2+(100 mg/dL) (Negative); Urine Specific Gravity 1.009 (1.002-1.030); Urine Urobilinogen Negative (Negative)
[2023-04-07 16:42] LABS: Urine Bacteria 1+ (Absent); Urine Red Blood Cell Trace(0-2/hpf) (Absent); Urine Squamous Epithelial Cell Present (Absent); Urine White Blood Cell 2+(11-20/hpf) (Absent)
[2023-04-07 16:55] LABS: Albumin 3.6 g/dL (3.2-5.2); Calcium 8.5 mg/dL (8.6-10.3); Creatinine, Serum 2.21 mg/dL (0.51-0.95); Globulin 3.6 g/dL (2-4); Potassium 4.3 mmol/L (3.5-5.0); Total Bilirubin 0.2 mg/dL (0.2-1.0); Total Protein 7.2 g/dL (6.4-8.9); eGFR CKD-EPI 24.6 (>60)
[2023-04-07] MEDS ORDERED: Heparin 5000 UNITS/ML 1 mL VIAL SUBCUT ONE (17:19)
[2023-04-07] MEDS: Morphine 2 MG/ML SYRINGE IV PRN (19:24)
[2023-04-08] MEDS: Morphine 2 MG/ML SYRINGE IV PRN ×5 (01:43→20:50)
[2023-04-08] MEDS: CMCS: Nebivolol 2.5 mg TAB (NF) PO SCH (10:02)
[2023-04-08] MEDS: Aspirin EC 81 mg TAB.EC (enteric coated) PO SCH (10:03)
[2023-04-08 12:36] LABS: INR 0.97 (0.88-1.18)
[2023-04-08 12:58] LABS: ABS Eosinophils 0.1 10^3/uL (0.0-0.5); ABS Monocytes 0.1 10^3/uL (0.0-0.9); ABS Neutrophils 1.7 10^3/uL (1.5-7.6); Eosinophil % 4.1 %; Hematocrit 29.5 % (35-45); Hemoglobin 9.7 g/dL (11.5-14.3); Lymphocyte % 32.2 %; Mean Corpuscular Hemoglobin 28.6 pg (27-33); Mean Corpuscular Volume 86.7 fL (80-97); Mean Platelet Volume 7.2 fL (7.5-11.2); Nucleated Red Blood Cells % 0.1 /100 WBC (0.0-0.4); Platelet Count 217 10^3/uL (150-450)
[2023-04-08 13:41] LABS: Calcium 8.9 mg/dL (8.6-10.3); Creatinine, Serum 2.26 mg/dL (0.51-0.95); Magnesium 2.2 mg/dL (1.9-2.7); Potassium 4.5 mmol/L (3.5-5.0); eGFR CKD-EPI 23.9 (>60)
[2023-04-08 19:10] LABS: Activated Partial Thrombo Time 31.4 seconds (26.0-38.0); INR 0.93 (0.88-1.18)
[2023-04-08] MEDS: Heparin 5000 UNITS/ML 1 mL VIAL SUBCUT SCH (21:01)
[2023-04-09] MEDS: Heparin 5000 UNITS/ML 1 mL VIAL SUBCUT SCH ×3 (05:49→21:36)
[2023-04-09] MEDS: Morphine 2 MG/ML SYRINGE IV PRN ×3 (06:07→20:24)
[2023-04-09] MEDS: Polyethylene Glycol 3350 17 GM PACKET PO PRN (09:27)
[2023-04-09] MEDS: Senna TAB 8.6 mg TAB PO PRN ×2 (09:28→21:47)
[2023-04-09] MEDS: Aspirin EC 81 mg TAB.EC (enteric coated) PO SCH (09:28)
[2023-04-09] MEDS: CMCS: Nebivolol 2.5 mg TAB (NF) PO SCH (09:28)
[2023-04-09 12:36] LABS: ABS Eosinophils 0.1 10^3/uL (0.0-0.5); ABS Lymphocytes 0.9 10^3/uL (1.0-4.8); ABS Monocytes 0.2 10^3/uL (0.0-0.9); ABS Neutrophils 1.9 10^3/uL (1.5-7.6); Eosinophil % 3.7 %; Hematocrit 31.4 % (35-45); Hemoglobin 10.3 g/dL (11.5-14.3); Mean Corpuscular Hemoglobin 28.7 pg (27-33); Mean Corpuscular Hgb Conc 32.8 g/dL (31-36); Mean Corpuscular Volume 87.6 fL (80-97); Mean Platelet Volume 7.3 fL (7.5-11.2); Nucleated Red Blood Cells % 0.1 /100 WBC (0.0-0.4); Platelet Count 207 10^3/uL (150-450); Red Blood Count 3.59 10^6/uL (3.63-4.92); Red Cell Distribution Width 13.9 % (12-17); White Blood Count 3.2 10^3/uL (3.8-11.8)
[2023-04-09 12:52] LABS: Calcium 8.6 mg/dL (8.6-10.3); Creatinine, Serum 2.29 mg/dL (0.51-0.95); Magnesium 2.2 mg/dL (1.9-2.7); Potassium 4.7 mmol/L (3.5-5.0); eGFR CKD-EPI 23.6 (>60)
[2023-04-10] MEDS: Acetaminophen IV 1 GM/100ML 1,000 MG/100 ML BAG IV PRN ×2 (01:23→07:33)
[2023-04-10] MEDS: Heparin 5000 UNITS/ML 1 mL VIAL SUBCUT SCH (06:42)
[2023-04-10 07:23] LABS: ABS Eosinophils 0.1 10^3/uL (0.0-0.5); ABS Lymphocytes 1.2 10^3/uL (1.0-4.8); ABS Monocytes 0.2 10^3/uL (0.0-0.9); ABS Neutrophils 1.1 10^3/uL (1.5-7.6); Eosinophil % 4.8 %; Hematocrit 24.8 % (35-45); Hemoglobin 8.4 g/dL (11.5-14.3); Mean Corpuscular Hemoglobin 29.4 pg (27-33); Mean Corpuscular Hgb Conc 33.8 g/dL (31-36); Mean Corpuscular Volume 86.9 fL (80-97); Mean Platelet Volume 7.2 fL (7.5-11.2); Platelet Count 182 10^3/uL (150-450); Red Blood Count 2.86 10^6/uL (3.63-4.92); Red Cell Distribution Width 13.9 % (12-17); White Blood Count 2.6 10^3/uL (3.8-11.8)
[2023-04-10 07:35] LABS: Calcium 8.1 mg/dL (8.6-10.3); Magnesium 2.2 mg/dL (1.9-2.7)
[2023-04-10] MEDS: Aspirin EC 81 mg TAB.EC (enteric coated) PO SCH (07:38)
[2023-04-10] MEDS: CMCS: Nebivolol 2.5 mg TAB (NF) PO SCH (07:39)
[2023-04-10 07:40] LABS: Creatinine, Serum 2.44 mg/dL (0.51-0.95); eGFR CKD-EPI 21.8 (>60)
[2023-04-10] MEDS: Morphine 2 MG/ML SYRINGE IV PRN ×2 (07:49→11:55)
[2023-04-10] MEDS: Polyethylene Glycol 3350 17 GM PACKET PO PRN (09:12)
[2023-04-10 09:40] VITALS: BP 100/66
[2023-04-11 19:55] LABS: Rapid COVID-19 Molecular Undetected (Undetected)
== END 2023-04-10 14:10 | disposition swing bed (61) | DRG 534 ==
LOC: ED 08:42 → SUATTDRO 15:28 → EDHOLD 15:28 → MED 20:27
PROVIDERS: ADMIT Internal Medicine; ATTEND Internal Medicine

== ENCOUNTER 2023-09-26 18:26 | Observation (INO) ==
[2023-09-26 19:52] LABS: Urine Appearance Turbid; Urine Bilirubin Negative (Negative); Urine Blood 1+ (Negative); Urine Color Amber; Urine Glucose Negative (Negative); Urine Ketones Negative (Negative); Urine Nitrite Positive (Negative); Urine Protein 2+(100 mg/dL) (Negative); Urine Urobilinogen Negative (Negative)
[2023-09-26 20:01] LABS: Urine Bacteria 1+ (Absent); Urine Red Blood Cell 3+(>10/hpf) (Absent); Urine Squamous Epithelial Cell Present (Absent); Urine White Blood Cell 3+(>20/hpf) (Absent)
[2023-09-26] MEDS ORDERED: Senna TAB 8.6 mg TAB PO PRN (20:11)
[2023-09-26] MEDS ORDERED: Polyethylene Glycol 3350 17 GM PACKET PO PRN (20:11)
[2023-09-27 01:43] LABS: ABS Eosinophils 0.1 10^3/uL (0.0-0.5); ABS Lymphocytes 1.3 10^3/uL (1.0-4.8); ABS Monocytes 0.2 10^3/uL (0.0-0.9); ABS Neutrophils 1.8 10^3/uL (1.5-7.6); Eosinophil % 2.6 %; Hematocrit 21.8 % (35-45); Hemoglobin 7.3 g/dL (11.5-14.3); Lymphocyte % 38.5 %; Mean Corpuscular Hemoglobin 29.3 pg (27-33); Mean Corpuscular Hgb Conc 33.6 g/dL (31-36); Mean Corpuscular Volume 87.4 fL (80-97); Mean Platelet Volume 7.7 fL (7.5-11.2); Nucleated Red Blood Cells % 0.1 %/100WBC (0.0-0.8); Platelet Count 160 10^3/uL (150-450); Red Blood Count 2.49 10^6/uL (3.63-4.92); Red Cell Distribution Width 14.5 % (12-17); White Blood Count 3.4 10^3/uL (3.8-11.8)
[2023-09-27 02:02] LABS: Albumin 3.4 g/dL (3.2-5.2); Albumin/Globulin Ratio 1.1 (1-3); Calcium 8.1 mg/dL (8.6-10.3); Creatinine, Serum 2.68 mg/dL (0.51-0.95); Magnesium 2.1 mg/dL (1.9-2.7); Total Bilirubin 0.2 mg/dL (0.2-1.0); Total Protein 6.4 g/dL (6.4-8.9); eGFR CKD-EPI 19.4 (>60)
[2023-09-27 06:27] LABS: ABS Eosinophils 0.1 10^3/uL (0.0-0.5); ABS Lymphocytes 1.3 10^3/uL (1.0-4.8); ABS Monocytes 0.1 10^3/uL (0.0-0.9); ABS Neutrophils 1.4 10^3/uL (1.5-7.6); Eosinophil % 3.4 %; Hematocrit 24.1 % (35-45); Lymphocyte % 44.3 %; Mean Corpuscular Hemoglobin 29.2 pg (27-33); Mean Corpuscular Hgb Conc 33.2 g/dL (31-36); Platelet Count 177 10^3/uL (150-450); Red Blood Count 2.74 10^6/uL (3.63-4.92); Red Cell Distribution Width 14.8 % (12-17); White Blood Count 2.9 10^3/uL (3.8-11.8)
[2023-09-27] MEDS ORDERED: CMCS: Nebivolol 2.5 mg TAB (NF) PO SCH (09:00)
[2023-09-27] MEDS ORDERED: Aspirin EC 81 mg TAB.EC (enteric coated) PO SCH (09:00)
[2023-09-27 14:26] VITALS: BP 121/78
== END 2023-09-27 17:20 | disposition home or self-care (01) ==
LOC: INTOOBSV 18:26 → SUATTDRO 18:26 → MED 18:26 → SUATTDRO 18:44
PROVIDERS: ADMIT Internal Medicine; ATTEND Internal Medicine

== ENCOUNTER 2023-11-08 02:41 | Inpatient (IN) ==
[2023-11-08] MEDS ORDERED: Morphine 4 MG/ML VIAL (1 ml) IV ONE (03:26)
[2023-11-08] MEDS ORDERED: Lactated Ringers 1000 ml BAG 1,000 ML IV ONE ×2 (03:27→10:49)
[2023-11-08 03:30] LABS: ABS Lymphocytes 0.5 10^3/uL (1.0-4.8); ABS Monocytes 0.2 10^3/uL (0.0-0.9); Hematocrit 25.5 % (35-45); Hemoglobin 8.3 g/dL (11.5-14.3); Lymphocyte % 3.6 %; Mean Corpuscular Hgb Conc 32.6 g/dL (31-36); Mean Corpuscular Volume 88.8 fL (80-97); Mean Platelet Volume 7.5 fL (7.5-11.2); Platelet Count 156 10^3/uL (150-450); Red Blood Count 2.88 10^6/uL (3.63-4.92); Red Cell Distribution Width 14.9 % (12-17); White Blood Count 12.7 10^3/uL (3.8-11.8)
[2023-11-08 03:42] LABS: Activated Partial Thrombo Time 33.1 seconds (26.0-38.0); INR 1.02 (0.83-1.13)
[2023-11-08 03:55] LABS: Albumin 3.6 g/dL (3.2-5.2); Albumin/Globulin Ratio 0.9 (1-3); Calcium 8.4 mg/dL (8.6-10.3); Creatinine, Serum 3.74 mg/dL (0.51-0.95); Globulin 3.9 g/dL (2-4); HDL Cholesterol 75.3 mg/dL; Indirect Bilirubin 0.4 mg/dL (0.3-1.0); Potassium 4.6 mmol/L (3.5-5.0); Total Bilirubin 0.4 mg/dL (0.2-1.0); Total Protein 7.5 g/dL (6.4-8.9)
[2023-11-08] MEDS ORDERED: cefTRIAXone 1 gm/50 mL D5W 1 GM/50 ML BAG IV ONE (04:06)
[2023-11-08] MEDS ORDERED: Vancomycin 1,500 MG in NS 0.9% 250 ml 250 ML IVPB ONE (04:06)
[2023-11-08] MEDS ORDERED: NS 0.9% 1000 ml BAG 1,000 ML IV ONE (04:07)
[2023-11-08 06:26] LABS: Urine Appearance Turbid; Urine Bacteria 1+ (Absent); Urine Bilirubin Negative (Negative); Urine Blood 1+ (Negative); Urine Color Dark-Yellow; Urine Glucose Negative (Negative); Urine Ketones Negative (Negative); Urine Nitrite Negative (Negative); Urine Protein 3+(>=500 mg/dL) (Negative); Urine Red Blood Cell Absent (Absent); Urine Specific Gravity 1.011 (1.002-1.030); Urine Squamous Epithelial Cell Present (Absent); Urine Urobilinogen Negative (Negative); Urine White Blood Cell 2+(11-20/hpf) (Absent)
[2023-11-08] MEDS ORDERED: Senna TAB 8.6 mg TAB PO PRN (08:27)
[2023-11-08] MEDS ORDERED: Polyethylene Glycol 3350 17 GM PACKET PO PRN (08:27)
[2023-11-08] MEDS ORDERED: Ondansetron 4 mg VIAL 2 MG/ML 2 ml VIAL IV PRN (08:27)
[2023-11-08] MEDS ORDERED: Vancomycin per Pharmacy 1 EA NOTE FOLLOW UP SCH (11:00)
[2023-11-08] MEDS: Aspirin EC 81 mg TAB.EC (enteric coated) PO SCH (11:32)
[2023-11-08] MEDS: Heparin 5000 UNITS/ML 1 mL VIAL SUBCUT SCH ×2 (11:33→20:02)
[2023-11-08] MEDS: CMC:Nebivolol 2.5 mg TAB (NF) PO SCH (14:01)
[2023-11-08] MEDS: Morphine 2 MG/ML SYRINGE IV PRN ×2 (16:48→20:01)
[2023-11-09] MEDS: Morphine 2 MG/ML SYRINGE IV PRN ×3 (01:49→15:24)
[2023-11-09] MEDS ORDERED: cefTRIAXone 1 gm/50 mL D5W 1 GM/50 ML BAG IV SCH (06:00)
[2023-11-09] MEDS ORDERED: Vancomycin Trough Check NOTE FOLLOW UP ONE (06:00)
[2023-11-09 06:37] LABS: Vancomycin Random 14.2 mcg/mL
[2023-11-09 06:42] LABS: Creatinine, Serum 3.8 mg/dL (0.51-0.95); eGFR CKD-EPI 12.8 (>60)
[2023-11-09] MEDS ORDERED: Lactated Ringers 1000 ml BAG 1,000 ML IV ONE (08:12)
[2023-11-09 08:48] LABS: Calcium 7.2 mg/dL (8.6-10.3); Potassium 4.8 mmol/L (3.5-5.0)
[2023-11-09] MEDS: Aspirin EC 81 mg TAB.EC (enteric coated) PO SCH (09:15)
[2023-11-09] MEDS: Heparin 5000 UNITS/ML 1 mL VIAL SUBCUT SCH ×2 (09:21→19:50)
[2023-11-09] MEDS ORDERED: Zosyn per Pharmacy NOTE FOLLOW UP SCH ×2 (10:00)
[2023-11-09] MEDS ORDERED: Piperacillin/Tazobac 3.375 BAG 3.375 GM/100 ML BAG IV ONE (11:00)
[2023-11-09] MEDS: CMC:Nebivolol 2.5 mg TAB (NF) PO SCH (11:06)
[2023-11-09] MEDS: ZOSYN 3.375 GM Q12H per EXTENDED INFUSION IV SCH (15:24)
[2023-11-09 19:55] LABS: Urine Creatinine Concentration 60.81 mg/dL (20.00-320.00); Urine TP Creat Ratio 3.78 mg/mg
[2023-11-09] MEDS: HYDROcodone/ACETAMIN 5/325 mg TAB PO PRN (19:55)
[2023-11-10] MEDS: Morphine 2 MG/ML SYRINGE IV PRN ×3 (00:35→16:27)
[2023-11-10] MEDS: ZOSYN 3.375 GM Q12H per EXTENDED INFUSION IV SCH ×3 (03:22→16:27)
[2023-11-10] MEDS: Heparin 5000 UNITS/ML 1 mL VIAL SUBCUT SCH ×2 (08:57→20:31)
[2023-11-10] MEDS: Aspirin EC 81 mg TAB.EC (enteric coated) PO SCH (08:58)
[2023-11-10] MEDS: CMC:Nebivolol 2.5 mg TAB (NF) PO SCH (08:58)
[2023-11-10] MEDS ORDERED: Lidocaine 1% MPF 5 ML VIAL INJ ONE (10:49)
[2023-11-10 12:31] LABS: C Reactive Protein 159.55 mg/L (<8.01); Calcium 7.8 mg/dL (8.6-10.3); Creatinine, Serum 3.68 mg/dL (0.51-0.95); Magnesium 1.9 mg/dL (1.9-2.7); Phosphorus 4.4 mg/dL (2.5-5.0); Potassium 4.8 mmol/L (3.5-5.0); eGFR CKD-EPI 13.3 (>60)
[2023-11-10 13:20] LABS: ABS Eosinophils 0.2 10^3/uL (0.0-0.5); ABS Lymphocytes 0.6 10^3/uL (1.0-4.8); ABS Monocytes 0.2 10^3/uL (0.0-0.9); ABS Neutrophils 4.2 10^3/uL (1.5-7.6); ABS Nucleated RBC 0.01 10^3/ul; Eosinophil % 3.6 %; Hematocrit 22.8 % (35-45); Hemoglobin 7.5 g/dL (11.5-14.3); Lymphocyte % 11.6 %; Mean Corpuscular Hgb Conc 32.7 g/dL (31-36); Mean Corpuscular Volume 88.8 fL (80-97); Mean Platelet Volume 8.5 fL (7.5-11.2); Nucleated Red Blood Cells % 0.1 %/100WBC (0.0-0.8); Platelet Count 156 10^3/uL (150-450); Red Blood Count 2.57 10^6/uL (3.63-4.92); Red Cell Distribution Width 14.6 % (12-17); White Blood Count 5.3 10^3/uL (3.8-11.8)
[2023-11-10] MEDS: HYDROcodone/ACETAMIN 5/325 mg TAB PO PRN (18:28)
[2023-11-11] MEDS: ZOSYN 3.375 GM Q12H per EXTENDED INFUSION IV SCH (03:00)
[2023-11-11 08:14] LABS: Calcium 7.8 mg/dL (8.6-10.3); Creatinine, Serum 3.45 mg/dL (0.51-0.95); Magnesium 1.9 mg/dL (1.9-2.7); Phosphorus 4.9 mg/dL (2.5-5.0); Potassium 4.9 mmol/L (3.5-5.0); eGFR CKD-EPI 14.3 (>60)
[2023-11-11 08:23] LABS: ABS Eosinophils 0.2 10^3/uL (0.0-0.5); ABS Lymphocytes 0.8 10^3/uL (1.0-4.8); ABS Monocytes 0.2 10^3/uL (0.0-0.9); ABS Neutrophils 2.9 10^3/uL (1.5-7.6); Eosinophil % 4.3 %; Hematocrit 21.9 % (35-45); Hemoglobin 7.2 g/dL (11.5-14.3); Mean Corpuscular Hgb Conc 32.8 g/dL (31-36); Mean Corpuscular Volume 88.4 fL (80-97); Mean Platelet Volume 7.8 fL (7.5-11.2); Nucleated Red Blood Cells % 0.1 %/100WBC (0.0-0.8); Platelet Count 161 10^3/uL (150-450); Red Blood Count 2.48 10^6/uL (3.63-4.92); Red Cell Distribution Width 14.5 % (12-17); White Blood Count 4.1 10^3/uL (3.8-11.8)
[2023-11-11] MEDS: Aspirin EC 81 mg TAB.EC (enteric coated) PO SCH (08:32)
[2023-11-11] MEDS: Heparin 5000 UNITS/ML 1 mL VIAL SUBCUT SCH ×2 (08:32→21:45)
[2023-11-11] MEDS: CMC:Nebivolol 2.5 mg TAB (NF) PO SCH (08:32)
[2023-11-11] MEDS: HYDROcodone/ACETAMIN 5/325 mg TAB PO PRN (08:57)
[2023-11-11] MEDS: Amoxicillin/Clavul 500/125 TAB (Augmentin 500 mg tab) PO SCH ×2 (12:03→21:45)
[2023-11-11 12:04] LABS: C Reactive Protein 110.89 mg/L (<8.01)
[2023-11-11] MEDS: Loperamide LIQ 2 MG/15 ML UDC PO PRN (15:21)
[2023-11-11] MEDS ORDERED: Influenza vaccine *QUAD* *2023-24* 0.5 ML SYRINGE IM ONE (16:00)
[2023-11-12] MEDS: CMC:Nebivolol 2.5 mg TAB (NF) PO SCH (08:29)
[2023-11-12] MEDS: HYDROcodone/ACETAMIN 5/325 mg TAB PO PRN (08:29)
[2023-11-12] MEDS: Aspirin EC 81 mg TAB.EC (enteric coated) PO SCH (08:30)
[2023-11-12] MEDS: Amoxicillin/Clavul 500/125 TAB (Augmentin 500 mg tab) PO SCH ×2 (08:30→20:11)
[2023-11-12] MEDS: Heparin 5000 UNITS/ML 1 mL VIAL SUBCUT SCH ×2 (08:30→20:12)
[2023-11-12] MEDS ORDERED: Influenza vaccine *QUAD* *2023-24* 0.5 ML SYRINGE IM ONE (09:00)
[2023-11-12 10:18] LABS: ABS Eosinophils 0.1 10^3/uL (0.0-0.5); ABS Lymphocytes 0.9 10^3/uL (1.0-4.8); ABS Monocytes 0.3 10^3/uL (0.0-0.9); ABS Neutrophils 3.2 10^3/uL (1.5-7.6); Hematocrit 21.5 % (35-45); Hemoglobin 7.1 g/dL (11.5-14.3); Lymphocyte % 19.8 %; Mean Corpuscular Hemoglobin 29.1 pg (27-33); Mean Corpuscular Hgb Conc 32.9 g/dL (31-36); Mean Corpuscular Volume 88.4 fL (80-97); Mean Platelet Volume 7.3 fL (7.5-11.2); Nucleated Red Blood Cells % 0.1 %/100WBC (0.0-0.8); Platelet Count 182 10^3/uL (150-450); Red Blood Count 2.43 10^6/uL (3.63-4.92); Red Cell Distribution Width 14.3 % (12-17); White Blood Count 4.5 10^3/uL (3.8-11.8)
[2023-11-12 10:36] LABS: C Reactive Protein 66.59 mg/L (<8.01); Calcium 7.9 mg/dL (8.6-10.3); Creatinine, Serum 3.14 mg/dL (0.51-0.95); Phosphorus 4.7 mg/dL (2.5-5.0); Potassium 4.6 mmol/L (3.5-5.0)
[2023-11-12 14:01] LABS: Sm (Smith) IgG Antibody <0.2 U
[2023-11-12] MEDS: Loperamide LIQ 2 MG/15 ML UDC PO PRN (18:41)
[2023-11-13 06:26] LABS: ABS Eosinophils 0.1 10^3/uL (0.0-0.5); ABS Lymphocytes 1.2 10^3/uL (1.0-4.8); ABS Monocytes 0.3 10^3/uL (0.0-0.9); ABS Neutrophils 3.1 10^3/uL (1.5-7.6); Eosinophil % 2.6 %; Hematocrit 19.9 % (35-45); Hemoglobin 6.7 g/dL (11.5-14.3); Lymphocyte % 24.9 %; Mean Corpuscular Hemoglobin 29.5 pg (27-33); Mean Corpuscular Hgb Conc 33.9 g/dL (31-36); Mean Corpuscular Volume 86.9 fL (80-97); Nucleated Red Blood Cells % 0.1 %/100WBC (0.0-0.8); Platelet Count 215 10^3/uL (150-450); Red Blood Count 2.29 10^6/uL (3.63-4.92); Red Cell Distribution Width 14.2 % (12-17); White Blood Count 4.8 10^3/uL (3.8-11.8)
[2023-11-13 06:42] LABS: Creatinine, Serum 3.01 mg/dL (0.51-0.95); Phosphorus 4.4 mg/dL (2.5-5.0); Potassium 4.6 mmol/L (3.5-5.0); eGFR CKD-EPI 16.9 (>60)
[2023-11-13] MEDS: Amoxicillin/Clavul 500/125 TAB (Augmentin 500 mg tab) PO SCH ×2 (09:43→21:59)
[2023-11-13] MEDS: Aspirin EC 81 mg TAB.EC (enteric coated) PO SCH (09:43)
[2023-11-13] MEDS: Heparin 5000 UNITS/ML 1 mL VIAL SUBCUT SCH ×2 (09:45→21:59)
[2023-11-13] MEDS: CMC:Nebivolol 2.5 mg TAB (NF) PO SCH (11:00)
[2023-11-13] MEDS: HYDROcodone/ACETAMIN 5/325 mg TAB PO PRN (22:03)
[2023-11-14 06:16] LABS: Hematocrit 24.5 % (35-45); Hemoglobin 8.4 g/dL (11.5-14.3); Mean Corpuscular Hgb Conc 34.3 g/dL (31-36); Mean Corpuscular Volume 87.6 fL (80-97); Mean Platelet Volume 6.8 fL (7.5-11.2); Platelet Count 233 10^3/uL (150-450); Red Cell Distribution Width 14.4 % (12-17)
[2023-11-14 06:34] LABS: Calcium 8.1 mg/dL (8.6-10.3); Creatinine, Serum 2.87 mg/dL (0.51-0.95); Magnesium 1.9 mg/dL (1.9-2.7); Phosphorus 4.6 mg/dL (2.5-5.0); Potassium 4.3 mmol/L (3.5-5.0); eGFR CKD-EPI 17.9 (>60)
[2023-11-14 07:18] LABS: ABS Eosinophils 0.1 10^3/uL (0.0-0.5); ABS Lymphocytes 0.9 10^3/uL (1.0-4.8); ABS Monocytes 0.3 10^3/uL (0.0-0.9); ABS Neutrophils 3.6 10^3/uL (1.5-7.6); ABS Nucleated RBC 0.01 10^3/ul; Eosinophil % 1.3 %; Lymphocyte % 18.8 %; Nucleated Red Blood Cells % 0.1 %/100WBC (0.0-0.8); RBC Morphology Normal (Normal)
[2023-11-14] MEDS: Amoxicillin/Clavul 500/125 TAB (Augmentin 500 mg tab) PO SCH ×2 (09:46→21:48)
[2023-11-14] MEDS: CMC:Nebivolol 2.5 mg TAB (NF) PO SCH (09:46)
[2023-11-14] MEDS: Loperamide LIQ 2 MG/15 ML UDC PO PRN (09:46)
[2023-11-14] MEDS: Aspirin EC 81 mg TAB.EC (enteric coated) PO SCH (09:48)
[2023-11-14] MEDS: Heparin 5000 UNITS/ML 1 mL VIAL SUBCUT SCH ×2 (09:48→21:48)
[2023-11-14] MEDS: HYDROcodone/ACETAMIN 5/325 mg TAB PO PRN (18:21)
[2023-11-15] MEDS: Aspirin EC 81 mg TAB.EC (enteric coated) PO SCH (08:46)
[2023-11-15] MEDS: Heparin 5000 UNITS/ML 1 mL VIAL SUBCUT SCH ×2 (08:46→21:16)
[2023-11-15] MEDS: Amoxicillin/Clavul 500/125 TAB (Augmentin 500 mg tab) PO SCH ×2 (08:46→21:15)
[2023-11-15] MEDS: CMCS:Nebivolol 2.5 mg TAB (NF) PO SCH (08:50)
[2023-11-15] MEDS: HYDROcodone/ACETAMIN 5/325 mg TAB PO PRN (14:34)
[2023-11-15] MEDS: Loperamide LIQ 2 MG/15 ML UDC PO PRN (18:15)
[2023-11-15] MEDS ORDERED: Labetalol IV 5 MG/ML 20 ml VIAL IV PUSH ONE (22:35)
[2023-11-16 06:36] LABS: Hematocrit 23.8 % (35-45); Hemoglobin 8.1 g/dL (11.5-14.3); Mean Corpuscular Hemoglobin 29.9 pg (27-33); Mean Corpuscular Hgb Conc 33.9 g/dL (31-36); Mean Corpuscular Volume 88.4 fL (80-97); Mean Platelet Volume 6.2 fL (7.5-11.2); Platelet Count 263 10^3/uL (150-450); Red Cell Distribution Width 14.1 % (12-17); White Blood Count 6.2 10^3/uL (3.8-11.8)
[2023-11-16 06:53] LABS: Calcium 7.7 mg/dL (8.6-10.3); Creatinine, Serum 3.09 mg/dL (0.51-0.95); Magnesium 1.8 mg/dL (1.9-2.7); Phosphorus 5.7 mg/dL (2.5-5.0); Potassium 4.4 mmol/L (3.5-5.0); eGFR CKD-EPI 16.3 (>60)
[2023-11-16] MEDS: Amoxicillin/Clavul 500/125 TAB (Augmentin 500 mg tab) PO SCH ×2 (08:34→21:14)
[2023-11-16] MEDS: Aspirin EC 81 mg TAB.EC (enteric coated) PO SCH (08:34)
[2023-11-16] MEDS: CMCS:Nebivolol 2.5 mg TAB (NF) PO SCH (08:35)
[2023-11-16] MEDS: Heparin 5000 UNITS/ML 1 mL VIAL SUBCUT SCH ×2 (08:36→21:15)
[2023-11-16] MEDS: Loperamide LIQ 2 MG/15 ML UDC PO PRN (12:54)
[2023-11-17 06:40] LABS: Hematocrit 23.8 % (35-45); Mean Corpuscular Hemoglobin 29.7 pg (27-33); Mean Corpuscular Hgb Conc 33.7 g/dL (31-36); Mean Corpuscular Volume 88.4 fL (80-97); Mean Platelet Volume 6.5 fL (7.5-11.2); Platelet Count 274 10^3/uL (150-450); Red Blood Count 2.69 10^6/uL (3.63-4.92); Red Cell Distribution Width 14.3 % (12-17); White Blood Count 7.2 10^3/uL (3.8-11.8)
[2023-11-17 06:58] LABS: Calcium 7.9 mg/dL (8.6-10.3); Creatinine, Serum 3.28 mg/dL (0.51-0.95); Magnesium 1.9 mg/dL (1.9-2.7); Phosphorus 5.7 mg/dL (2.5-5.0); Potassium 4.8 mmol/L (3.5-5.0); eGFR CKD-EPI 15.2 (>60)
[2023-11-17] MEDS: CMCS:Nebivolol 2.5 mg TAB (NF) PO SCH (09:14)
[2023-11-17] MEDS: Heparin 5000 UNITS/ML 1 mL VIAL SUBCUT SCH ×2 (09:14→22:11)
[2023-11-17] MEDS: Amoxicillin/Clavul 500/125 TAB (Augmentin 500 mg tab) PO SCH ×2 (09:15→22:11)
[2023-11-17] MEDS: Aspirin EC 81 mg TAB.EC (enteric coated) PO SCH (09:15)
[2023-11-18 06:10] LABS: Calcium 8.1 mg/dL (8.6-10.3); Creatinine, Serum 3.18 mg/dL (0.51-0.95); Potassium 4.8 mmol/L (3.5-5.0); eGFR CKD-EPI 15.8 (>60)
[2023-11-18 09:51] VITALS: BP 164/90
[2023-11-18] MEDS: Heparin 5000 UNITS/ML 1 mL VIAL SUBCUT SCH (09:55)
[2023-11-18] MEDS: Aspirin EC 81 mg TAB.EC (enteric coated) PO SCH (10:01)
[2023-11-18] MEDS: CMCS:Nebivolol 2.5 mg TAB (NF) PO SCH (10:02)
[2023-11-18] MEDS: Amoxicillin/Clavul 500/125 TAB (Augmentin 500 mg tab) PO SCH (10:10)
== END 2023-11-18 13:48 | disposition home or self-care (01) | DRG 871 ==
LOC: EDHOLD 02:41 → ED 02:41 → SUATTDRO 08:27 → MEDTELE 14:41 → SUATTDRO 11-09 10:13
PROVIDERS: ADMIT Internal Medicine; ATTEND Hospitalist

== ENCOUNTER 2024-06-09 18:18 | Inpatient (IN) ==
[2024-06-09 20:55] LABS: Urine Appearance Turbid; Urine Bilirubin Negative (Negative); Urine Blood Trace (Negative); Urine Color Colorless; Urine Glucose Negative (Negative); Urine Ketones Negative (Negative); Urine Nitrite Negative (Negative); Urine Protein 2+ (>=100 mg/dL) (Negative); Urine Specific Gravity 1.009 (1.002-1.030); Urine Urobilinogen Negative (Negative); Urine pH 6.5 (5.0-8.0)
[2024-06-09 21:00] LABS: Urine Bacteria 3+ /HPF (Absent); Urine Red Blood Cell Trace(0-2/hpf) /HPF (0-Trace); Urine Squamous Epithelial Cell Present /HPF (Absent); Urine White Blood Cell 3+(>20/hpf) /HPF (0-Trace)
[2024-06-09 23:20] LABS: ABS Eosinophils 0.1 10^3/uL (0.0-0.5); ABS Lymphocytes 1.2 10^3/uL (1.0-4.8); ABS Monocytes 0.2 10^3/uL (0.0-0.9); ABS Neutrophils 3.3 10^3/uL (1.5-7.6); Eosinophil % 2.3 %; Hematocrit 24.4 % (35-45); Hemoglobin 8.1 g/dL (11.5-14.3); Lymphocyte % 24.8 %; Mean Corpuscular Hemoglobin 28.6 pg (27-33); Mean Corpuscular Hgb Conc 33.3 g/dL (31-36); Mean Corpuscular Volume 85.8 fL (80-97); Mean Platelet Volume 6.8 fL (7.5-11.2); Nucleated Red Blood Cells % 0.1 %/100WBC (0.0-0.8); Platelet Count 189 10^3/uL (150-450); Red Blood Count 2.85 10^6/uL (3.63-4.92); Red Cell Distribution Width 15.1 % (12-17); White Blood Count 4.9 10^3/uL (3.8-11.8)
[2024-06-09] MEDS: oxyCODONE/Acetamin 5/325 mg TAB PO ONE (23:35)
[2024-06-09] MEDS: cefTRIAXone 1 gm/50 mL D5W 1 GM/50 ML BAG IV ONE (23:38)
[2024-06-09 23:41] LABS: Activated Partial Thrombo Time 30.6 seconds (26.0-38.0); INR 0.93 (0.83-1.13)
[2024-06-09 23:48] LABS: Albumin 3.3 g/dL (3.2-5.2); Albumin/Globulin Ratio 1.1 (1-3); C Reactive Protein 5.51 mg/L (<8.01); Calcium 7.6 mg/dL (8.6-10.3); Creatinine, Serum 3.9 mg/dL (0.51-0.95); Globulin 2.9 g/dL (2-4); Potassium 5.1 mmol/L (3.5-5.0); Total Bilirubin 0.5 mg/dL (0.2-1.0); Total Protein 6.2 g/dL (6.4-8.9); eGFR CKD-EPI 12.3 (>60)
[2024-06-10 01:37] LABS: High Sensitivity Troponin 1 Hr 9 pg/mL (<15)
[2024-06-10] MEDS ORDERED: Polyethylene Glycol 3350 17 GM PACKET PO PRN (02:33)
[2024-06-10] MEDS ORDERED: Senna TAB 8.6 mg TAB PO PRN (02:33)
[2024-06-10 07:04] LABS: ABS Eosinophils 0.1 10^3/uL (0.0-0.5); ABS Lymphocytes 1.2 10^3/uL (1.0-4.8); ABS Monocytes 0.3 10^3/uL (0.0-0.9); ABS Neutrophils 3.4 10^3/uL (1.5-7.6); Eosinophil % 2.2 %; Hematocrit 23.8 % (35-45); Hemoglobin 8.1 g/dL (11.5-14.3); Lymphocyte % 23.5 %; Mean Corpuscular Hemoglobin 29.5 pg (27-33); Mean Corpuscular Hgb Conc 34.1 g/dL (31-36); Mean Corpuscular Volume 86.6 fL (80-97); Mean Platelet Volume 6.8 fL (7.5-11.2); Nucleated Red Blood Cells % 0.1 %/100WBC (0.0-0.8); Platelet Count 188 10^3/uL (150-450); Red Blood Count 2.75 10^6/uL (3.63-4.92)
[2024-06-10 07:54] LABS: Calcium 7.5 mg/dL (8.6-10.3); Creatinine, Serum 3.8 mg/dL (0.51-0.95); Potassium 4.9 mmol/L (3.5-5.0); eGFR CKD-EPI 12.7 (>60)
[2024-06-10] MEDS: Nebivolol 2.5 mg TAB (NF) PO SCH (08:24)
[2024-06-10] MEDS: Calcium Carb (TUMS) 500 mg CHEW TAB PO SCH (08:24)
[2024-06-10] MEDS: cefTRIAXone 1 gm/50 mL D5W 1 GM/50 ML BAG IV SCH (21:20)
[2024-06-10] MEDS ORDERED: cefTRIAXone 1 gm/50 mL D5W 1 GM/50 ML BAG IV SCH (22:00)
[2024-06-11 12:51] LABS: ABS Basophils 0.1 10^3/uL (0.0-0.1); ABS Eosinophils 0.1 10^3/uL (0.0-0.5); ABS Monocytes 0.4 10^3/uL (0.0-0.9); ABS Neutrophils 4.4 10^3/uL (1.5-7.6); Eosinophil % 1.5 %; Hematocrit 26.4 % (35-45); Hemoglobin 8.9 g/dL (11.5-14.3); Lymphocyte % 16.7 %; Mean Corpuscular Hemoglobin 29.2 pg (27-33); Mean Corpuscular Hgb Conc 33.7 g/dL (31-36); Mean Corpuscular Volume 86.8 fL (80-97); Mean Platelet Volume 6.7 fL (7.5-11.2); Nucleated Red Blood Cells % 0.1 %/100WBC (0.0-0.8); Platelet Count 210 10^3/uL (150-450); Red Blood Count 3.04 10^6/uL (3.63-4.92); White Blood Count 5.9 10^3/uL (3.8-11.8)
[2024-06-11 13:08] LABS: Albumin 3.7 g/dL (3.2-5.2); Albumin/Globulin Ratio 1.2 (1-3); Creatinine, Serum 3.81 mg/dL (0.51-0.95); Globulin 3.1 g/dL (2-4); Potassium 5.1 mmol/L (3.5-5.0); Total Bilirubin 0.3 mg/dL (0.2-1.0); Total Protein 6.8 g/dL (6.4-8.9); eGFR CKD-EPI 12.6 (>60)
[2024-06-11 22:44] LABS: Hepatitis B Surface Antigen Nonreactive (Nonreactive)
[2024-06-11 23:01] LABS: Hepatitis B Surface Ab Not Immune (Immune)
[2024-06-12 15:43] LABS: Calcium 8.3 mg/dL (8.6-10.3); Creatinine, Serum 3.97 mg/dL (0.51-0.95); Potassium 5.4 mmol/L (3.5-5.0)
[2024-06-12] MEDS: SODIUM ZIRCONIUM CYCLOSILICATE 10 GM PACKET PO ONE (18:39)
[2024-06-12] MEDS: Senna TAB 8.6 mg TAB PO SCH (21:10)
[2024-06-13 10:35] LABS: Calcium 7.8 mg/dL (8.6-10.3); Creatinine, Serum 3.87 mg/dL (0.51-0.95); Potassium 5.2 mmol/L (3.5-5.0); eGFR CKD-EPI 12.4 (>60)
[2024-06-13] MEDS: SODIUM ZIRCONIUM CYCLOSILICATE 10 GM PACKET PO ONE (13:14)
[2024-06-14 12:46] LABS: TB1 Ag minus Nil Result -0.01 IU/mL; TB2 Ag minus Nil Result 0.02 IU/mL
[2024-06-14 12:48] LABS: QuantiferonTb Gold Plus Result Negative (Negative)
[2024-06-15 17:15] VITALS: BP 138/79
== END 2024-06-15 19:45 | disposition home or self-care (01) | DRG 682 ==
LOC: EDHOLD 18:18 → ED 18:18 → MED 06-10 14:06 → SUATTDRO 06-13 17:27
PROVIDERS: ADMIT Internal Medicine; ATTEND Hospitalist

== ENCOUNTER 2024-07-06 13:58 | Inpatient (IN) ==
[2024-07-06] MEDS: Iodixanol (CONTRAST) 320 MG/ML 100 ML SDV IV ONE (14:48)
[2024-07-06 15:27] LABS: ABS Eosinophils 0.1 10^3/uL (0.0-0.5); ABS Lymphocytes 1.9 10^3/uL (1.0-4.8); ABS Monocytes 0.3 10^3/uL (0.0-0.9); ABS Neutrophils 3.8 10^3/uL (1.5-7.6); ABS Nucleated RBC 0.01 10^3/ul; Eosinophil % 1.1 %; Hematocrit 24.7 % (35-45); Hemoglobin 8.4 g/dL (11.5-14.3); Lymphocyte % 30.6 %; Mean Corpuscular Hemoglobin 29.5 pg (27-33); Mean Platelet Volume 7.1 fL (7.5-11.2); Nucleated Red Blood Cells % 0.1 %/100WBC (0.0-0.8); Platelet Count 246 10^3/uL (150-450); Red Blood Count 2.84 10^6/uL (3.63-4.92); Red Cell Distribution Width 14.9 % (12-17); White Blood Count 6.1 10^3/uL (3.8-11.8)
[2024-07-06 15:47] LABS: Albumin 4.2 g/dL (3.2-5.2); Albumin/Globulin Ratio 1.1 (1-3); Calcium 8.8 mg/dL (8.6-10.3); Creatinine, Serum 3.35 mg/dL (0.51-0.95); Globulin 3.7 g/dL (2-4); HDL Cholesterol 71.4 mg/dL; Indirect Bilirubin 0.3 mg/dL (0.3-1.0); Potassium 4.5 mmol/L (3.5-5.0); Total Bilirubin 0.3 mg/dL (0.2-1.0); Total Protein 7.9 g/dL (6.4-8.9); eGFR CKD-EPI 14.7 (>60)
[2024-07-06 15:52] LABS: Urine Appearance Turbid; Urine Bilirubin Negative (Negative); Urine Blood Trace (Negative); Urine Glucose Negative (Negative); Urine Ketones Negative (Negative); Urine Nitrite Negative (Negative); Urine Protein 2+ (>=100 mg/dL) (Negative); Urine Specific Gravity 1.013 (1.002-1.030); Urine Urobilinogen Negative (Negative)
[2024-07-06 16:00] LABS: Activated Partial Thrombo Time 30.9 seconds (26.0-38.0)
[2024-07-06 16:27] LABS: High Sensitivity Troponin 1 Hr 11 pg/mL (<15)
[2024-07-06 16:30] LABS: Urine Bacteria 2+ /HPF (Absent); Urine Red Blood Cell 1+(3-5/hpf) /HPF (0-Trace); Urine Renal Epithelial Cells Present /HPF (Absent); Urine Squamous Epithelial Cell Present /HPF (Absent); Urine Transitional Epithelial Present /HPF (Absent); Urine White Blood Cell 3+(>20/hpf) /HPF (0-Trace)
[2024-07-06 16:31] LABS: Urine Color Light-Yellow
[2024-07-06] MEDS: Ondansetron 4 mg VIAL 2 MG/ML 2 ml VIAL IV ONE (16:42)
[2024-07-06] MEDS: Morphine 4 MG/ML VIAL (1 ml) IV ONE (16:42)
[2024-07-06] MEDS ORDERED: hydrALAZINE 20 mg/ml 1 ML Vial IV IV SLOW PU PRN (18:15)
[2024-07-06] MEDS: cefTRIAXone 1 gm/50 mL D5W 1 GM/50 ML BAG IV SCH (18:45)
[2024-07-06] MEDS: Acetaminophen IV 1 GM/100ML 1,000 MG/100 ML BAG IV PRN (20:15)
[2024-07-07] MEDS ORDERED: NS 0.9% 1000 ml BAG 100 ML IV PRN (12:48)
[2024-07-07] MEDS ORDERED: NS 0.9% 1000 ml BAG 200 ML IV PRN (12:48)
[2024-07-07 13:43] LABS: ABS Lymphocytes 1.1 10^3/uL (1.0-4.8); ABS Monocytes 0.4 10^3/uL (0.0-0.9); ABS Neutrophils 3.9 10^3/uL (1.5-7.6); ABS Nucleated RBC 0.02 10^3/ul; Eosinophil % 0.9 %; Hematocrit 22.5 % (35-45); Hemoglobin 7.6 g/dL (11.5-14.3); Lymphocyte % 20.5 %; Mean Corpuscular Hemoglobin 29.9 pg (27-33); Mean Corpuscular Hgb Conc 33.9 g/dL (31-36); Mean Corpuscular Volume 88.2 fL (80-97); Mean Platelet Volume 6.9 fL (7.5-11.2); Nucleated Red Blood Cells % 0.3 %/100WBC (0.0-0.8); Platelet Count 234 10^3/uL (150-450); Red Blood Count 2.55 10^6/uL (3.63-4.92); Red Cell Distribution Width 15.1 % (12-17); White Blood Count 5.6 10^3/uL (3.8-11.8)
[2024-07-07 14:03] LABS: Calcium 7.7 mg/dL (8.6-10.3); Creatinine, Serum 3.97 mg/dL (0.51-0.95); Magnesium 1.9 mg/dL (1.9-2.7); Potassium 4.4 mmol/L (3.5-5.0)
[2024-07-07 14:57] LABS: Hepatitis B Surface Ab Not Immune (Immune)
[2024-07-08] MEDS: Polyethylene Glycol 3350 17 GM PACKET PO PRN (09:24)
[2024-07-08] MEDS: Ondansetron ODT 4 mg TAB 4 MG TAB SL PRN (10:14)
[2024-07-08 12:09] LABS: Hepatitis B Surface Antigen Nonreactive (Nonreactive)
[2024-07-08 15:01] LABS: CRP High Sensitivity 19.2 mg/L (<2.00)
[2024-07-08] MEDS: Heparin 1,000 UNIT/ML 10 ml (10,000 UNITS) CATHLAB/DIALYSIS DIALYSIS PRN (15:33)
[2024-07-09] MEDS: Senna TAB 8.6 mg TAB PO PRN (13:38)
[2024-07-10 05:34] LABS: Hematocrit 21.6 % (35-45); Mean Corpuscular Hgb Conc 32.4 g/dL (31-36); Mean Corpuscular Volume 89.7 fL (80-97); Mean Platelet Volume 6.9 fL (7.5-11.2); Platelet Count 219 10^3/uL (150-450); Red Blood Count 2.41 10^6/uL (3.63-4.92); Red Cell Distribution Width 15.2 % (12-17); White Blood Count 3.9 10^3/uL (3.8-11.8)
[2024-07-10 05:55] LABS: Calcium 7.2 mg/dL (8.6-10.3); Creatinine, Serum 5.14 mg/dL (0.51-0.95); Potassium 4.6 mmol/L (3.5-5.0); eGFR CKD-EPI 8.8 (>60)
[2024-07-11] MEDS ORDERED: Magnesium Hydroxide LIQ 30 ML UDC PO PRN (16:11)
[2024-07-11] MEDS ORDERED: Polyethylene Glycol 3350 17 GM PACKET PO PRN (16:11)
[2024-07-11] MEDS: Magnesium Hydroxide LIQ 30 ML UDC PO SCH (22:12)
[2024-07-12 11:43] LABS: Hematocrit 24.6 % (35-45); Hemoglobin 7.9 g/dL (11.5-14.3); Mean Corpuscular Hemoglobin 29.1 pg (27-33); Mean Corpuscular Hgb Conc 32.3 g/dL (31-36); Mean Corpuscular Volume 90.3 fL (80-97); Mean Platelet Volume 6.4 fL (7.5-11.2); Platelet Count 240 10^3/uL (150-450); Red Blood Count 2.72 10^6/uL (3.63-4.92); Red Cell Distribution Width 15.1 % (12-17); White Blood Count 5.2 10^3/uL (3.8-11.8)
[2024-07-12 12:01] LABS: Calcium 8.2 mg/dL (8.6-10.3); Creatinine, Serum 4.94 mg/dL (0.51-0.95); Magnesium 2.8 mg/dL (1.9-2.7); Potassium 4.2 mmol/L (3.5-5.0); eGFR CKD-EPI 9.3 (>60)
[2024-07-12 12:03] LABS: Albumin 3.8 g/dL (3.2-5.2); Albumin/Globulin Ratio 1.1 (1-3); CRP High Sensitivity 8.46 mg/L (<2.00); Direct Bilirubin 0.1 mg/dL (0.03-0.18); Globulin 3.4 g/dL (2-4); Indirect Bilirubin 0.1 mg/dL (0.3-1.0); Total Bilirubin 0.2 mg/dL (0.2-1.0); Total Protein 7.2 g/dL (6.4-8.9)
[2024-07-12 16:39] LABS: Complement C3 120 mg/dL (75 - 175)
[2024-07-12 16:58] LABS: Phospholipid Ab IgG < 9.4 GPL; Phospholipid Ab IgM, S < 9.4 MPL
[2024-07-13] MEDS: Albumin Human 25% 25 GM/100 ML BTL IV PRN (13:23)
[2024-07-13 20:23] VITALS: BP 138/74
== END 2024-07-13 20:00 | disposition home or self-care (01) | DRG 56 ==
LOC: EDHOLD 13:58 → ED 13:58 → SUATTDRO 17:30 → MEDTELE 20:59 → SUATTDRO 07-07 16:36
PROVIDERS: ADMIT Internal Medicine; ATTEND Student in an Organized Health Care Education/Training Program

== ENCOUNTER 2024-07-26 10:29 | Inpatient (IN) ==
[2024-07-26 11:45] LABS: Urine Bacteria 3+ /HPF (Absent); Urine Red Blood Cell 3+(>10/hpf) /HPF (0-Trace); Urine Squamous Epithelial Cell Present /HPF (Absent); Urine White Blood Cell 3+(>20/hpf) /HPF (0-Trace)
[2024-07-26 12:11] LABS: Urine Appearance Extra Turbid; Urine Bilirubin Negative (Negative); Urine Blood 1+ (Negative); Urine Glucose Negative (Negative); Urine Ketones Negative (Negative); Urine Nitrite Negative (Negative); Urine Protein 2+ (>=100 mg/dL) (Negative); Urine Specific Gravity 1.016 (1.002-1.030); Urine Urobilinogen 2+ (Negative); Urine pH 7.5 (5.0-8.0)
[2024-07-26 12:15] LABS: Urine Color Yellow
[2024-07-26] MEDS: cefTRIAXone 1 gm/50 mL D5W 1 GM/50 ML BAG IV ONE (12:57)
[2024-07-26 13:12] LABS: ABS Basophils 0.1 10^3/uL (0.0-0.1); ABS Eosinophils 0.1 10^3/uL (0.0-0.5); ABS Lymphocytes 1.4 10^3/uL (1.0-4.8); ABS Monocytes 0.5 10^3/uL (0.0-0.9); ABS Nucleated RBC 0.01 10^3/ul; Eosinophil % 1.2 %; Hematocrit 29.3 % (35-45); Hemoglobin 9.5 g/dL (11.5-14.3); Lymphocyte % 17.8 %; Mean Corpuscular Hemoglobin 30.6 pg (27-33); Mean Corpuscular Hgb Conc 32.5 g/dL (31-36); Mean Corpuscular Volume 93.9 fL (80-97); Mean Platelet Volume 7.5 fL (7.5-11.2); Nucleated Red Blood Cells % 0.2 %/100WBC (0.0-0.8); Platelet Count 319 10^3/uL (150-450); Red Blood Count 3.12 10^6/uL (3.63-4.92); Red Cell Distribution Width 17.9 % (12-17); White Blood Count 8.1 10^3/uL (3.8-11.8)
[2024-07-26 13:25] LABS: INR 0.92 (0.85-1.14)
[2024-07-26] MEDS: Morphine 2 MG/ML SYRINGE IV ONE ×2 (13:45→15:32)
[2024-07-26 13:55] LABS: Albumin 4.1 g/dL (3.2-5.2); Albumin/Globulin Ratio 1.1 (1-3); Calcium 9.9 mg/dL (8.6-10.3); Creatinine, Serum 8.12 mg/dL (0.51-0.95); Globulin 3.9 g/dL (2-4); HDL Cholesterol 56.1 mg/dL; Indirect Bilirubin 0.3 mg/dL (0.3-1.0); Potassium 6.2 mmol/L (3.5-5.0); Total Bilirubin 0.3 mg/dL (0.2-1.0); eGFR CKD-EPI 5.1 (>60)
[2024-07-26] MEDS ORDERED: NS 0.9% 1000 ml BAG 200 ML IV PRN (14:06)
[2024-07-26] MEDS ORDERED: NS 0.9% 1000 ml BAG 100 ML IV PRN (14:06)
[2024-07-26] MEDS ORDERED: Albumin Human 25% 25 GM/100 ML BTL IV PRN (14:06)
[2024-07-26 14:29] LABS: High Sensitivity Troponin 1 Hr 62 pg/mL (<15)
[2024-07-26 16:56] LABS: C Reactive Protein 7.53 mg/L (<8.01)
[2024-07-26] MEDS: Heparin 1,000 UNIT/ML 10 ml (10,000 UNITS) CATHLAB/DIALYSIS DIALYSIS PRN (17:12)
[2024-07-26 20:02] LABS: Hepatitis B Surface Antigen Nonreactive (Nonreactive)
[2024-07-26] MEDS ORDERED: Cefepime ADVAN 0.5 GM in NS 0.9% 50 ML 50 ML IVPB SCH (20:03)
[2024-07-26 20:20] LABS: Hepatitis B Surface Ab Not Immune (Immune)
[2024-07-26] MEDS: Polyethylene Glycol 3350 17 GM PACKET PO SCH (20:56)
[2024-07-26] MEDS: Senna TAB 8.6 mg TAB PO SCH (20:59)
[2024-07-26] MEDS: Calcium Carb (TUMS) 500 mg CHEW TAB PO SCH (21:00)
[2024-07-26] MEDS: Heparin 5000 UNITS/ML 1 mL VIAL SUBCUT SCH (22:05)
[2024-07-26] MEDS: Cefepime 1 GM in Dextrose 1 GM/50 ML BAG IV SCH (22:23)
[2024-07-27 09:12] LABS: ABS Eosinophils 0.1 10^3/uL (0.0-0.5); ABS Lymphocytes 1.7 10^3/uL (1.0-4.8); ABS Monocytes 0.5 10^3/uL (0.0-0.9); ABS Neutrophils 3.4 10^3/uL (1.5-7.6); ABS Nucleated RBC 0.01 10^3/ul; Eosinophil % 1.7 %; Hematocrit 31.5 % (35-45); Lymphocyte % 30.2 %; Mean Corpuscular Hemoglobin 30.2 pg (27-33); Mean Corpuscular Hgb Conc 31.7 g/dL (31-36); Mean Corpuscular Volume 95.5 fL (80-97); Mean Platelet Volume 7.6 fL (7.5-11.2); Nucleated Red Blood Cells % 0.2 %/100WBC (0.0-0.8); Platelet Count 301 10^3/uL (150-450); Red Cell Distribution Width 18.9 % (12-17); White Blood Count 5.7 10^3/uL (3.8-11.8)
[2024-07-27 12:00] LABS: Anion Gap 14 mmol/L (2-16); Blood Urea Nitrogen 42 mg/dL (6-24); CO2 Carbon Dioxide 24 mmol/L (22-32); Calcium 9.1 mg/dL (8.6-10.3); Chloride 94 mmol/L (101-111); Creatinine, Serum 7.68 mg/dL (0.51-0.95); Glucose 84 mg/dL (70-100); Magnesium 2.8 mg/dL (1.9-2.7); Sodium 132 mmol/L (135-145); eGFR CKD-EPI 5.4 (>60)
[2024-07-27] MEDS: CMCS: Nebivolol 2.5 mg TAB (NF) PO SCH (14:13)
[2024-07-27] MEDS: NEBIVOLOL 10 MG PO SCH (14:14)
[2024-07-27] MEDS: CEFEPIME 2 GM in Dextrose 50 mL IV SCH (18:11)
[2024-07-28] MEDS: CMCS: Nebivolol 2.5 mg TAB (NF) PO SCH (08:30)
[2024-07-28] MEDS: PEG 3000 GI LAVAGE 1 GALLON PO ONE (14:20)
[2024-07-29 09:39] LABS: ABS Eosinophils 0.1 10^3/uL (0.0-0.5); ABS Lymphocytes 1.3 10^3/uL (1.0-4.8); ABS Monocytes 0.3 10^3/uL (0.0-0.9); ABS Neutrophils 2.7 10^3/uL (1.5-7.6); ABS Nucleated RBC 0.01 10^3/ul; Eosinophil % 2.5 %; Hematocrit 26.4 % (35-45); Hemoglobin 8.5 g/dL (11.5-14.3); Lymphocyte % 28.6 %; Mean Corpuscular Hemoglobin 30.6 pg (27-33); Mean Corpuscular Hgb Conc 32.4 g/dL (31-36); Mean Corpuscular Volume 94.4 fL (80-97); Mean Platelet Volume 7.5 fL (7.5-11.2); Nucleated Red Blood Cells % 0.1 %/100WBC (0.0-0.8); Platelet Count 263 10^3/uL (150-450); Red Blood Count 2.79 10^6/uL (3.63-4.92); Red Cell Distribution Width 19.6 % (12-17); White Blood Count 4.4 10^3/uL (3.8-11.8)
[2024-07-29 10:03] LABS: Calcium 9.1 mg/dL (8.6-10.3); Creatinine, Serum 7.49 mg/dL (0.51-0.95); Potassium 4.3 mmol/L (3.5-5.0); eGFR CKD-EPI 5.6 (>60)
[2024-07-29] MEDS: Lactulose 30 ml UDC PO ONE (14:03)
[2024-07-29 16:24] VITALS: BP 103/70
== END 2024-07-29 17:15 | disposition home health service (06) | DRG 91 ==
LOC: ED 10:29 → EDHOLD 10:29 → MEDTELE 16:14
PROVIDERS: ADMIT Hospitalist; ATTEND Hospitalist